=== PATIENT | male | born 1945 | race Caucasian/White ===

== ENCOUNTER 2020-02-17 13:20 | Outpatient (RCR) | payer MEDICARE, SELFPAY ==
[2020-04-25 11:58] LABS: Influenza A PCR NEGATIVE (Negative); Influenza B PCR NEGATIVE (Negative); Resp Syncy Virus RNA Qual PCR NEGATIVE (Negative); SARS COV2 PCR INHOUSE NEGATIVE (Negative)
[2020-04-27 14:52] LABS: Influenza A PCR NEGATIVE (Negative); Influenza B PCR NEGATIVE (Negative); Resp Syncy Virus RNA Qual PCR NEGATIVE (Negative); SARS COV2 PCR INHOUSE NEGATIVE (Negative)
[2020-05-03 13:40] LABS: Influenza A PCR NEGATIVE (Negative); Influenza B PCR NEGATIVE (Negative); Resp Syncy Virus RNA Qual PCR NEGATIVE (Negative); SARS COV2 PCR INHOUSE NEGATIVE (Negative)
[2020-05-21 14:24] LABS: Influenza A PCR NEGATIVE (Negative); Influenza B PCR NEGATIVE (Negative); Resp Syncy Virus RNA Qual PCR NEGATIVE (Negative); SARS COV2 PCR INHOUSE POSITIVE (Negative)
[2020-06-07 11:55] LABS: Calcium 9.3 mg/dL (8.4-10.2)
[2020-06-07 12:00] LABS: Blood Urea Nitrogen 36 mg/dL (9-16)
[2020-06-07 14:54] LABS: Anion Gap 14 (12-20); Calcium 9.3 mg/dL (8.4-10.2); Carbon Dioxide 25 mmol/L (22-29); Chloride 107 mmol/L (96-108); Estimated Glomerular Filt Rate 39; Glucose Random 102 mg/dL (60-115); Potassium 4.6 mmol/l (3.3-5.1); Sodium 141 mmol/L (135-145)
[2020-06-12 11:43] LABS: Anion Gap 11 (12-20); Blood Urea Nitrogen 39 mg/dL (9-16); Calcium 8.6 mg/dL (8.4-10.2); Carbon Dioxide 25 mmol/L (22-29); Chloride 107 mmol/L (96-108); Estimated Glomerular Filt Rate 40; Glucose Random 104 mg/dL (60-115); Potassium 4.6 mmol/l (3.3-5.1); Sodium 138 mmol/L (135-145)
--- NOTE | 2020-06-13 10:28 | P.DS_ITS ---
DS: Providers Provider Date of Service: 06/14/20 DS: Medications Discharge Medications Home Medications: Previous Rx's Medication Instructions Recorded acetaminophen 650 mg PO Q4H PRN #30 tab 06/05/20 aspirin 81 mg PO DAILY@0600 #30 tab 06/05/20 bisacodyl [Gentle Laxative 10 mg [place] DAILY PRN #30 ea 06/05/20 (bisacodyl)] dextromethorphan-guaifenesin 10 ml PO QID PRN #200 ml 06/05/20 loratadine 10 mg PO DAILY@0600 #30 tab 06/05/20 magnesium hydroxide [Milk of 30 ml PO DAILY PRN #300 ml 06/05/20 Magnesia] magnesium oxide 400 mg PO DAILY@0600 #30 tab 06/05/20 metoprolol succinate 25 mg PO DAILY@0600 #30 tab 06/05/20 metoprolol succinate 100 mg PO DAILY@0600 #30 tab 06/05/20 miconazole nitrate [Inzo 1 appl TOPICAL DAILY PRN #1 g 06/05/20 Antifungal] nystatin 1 appl TOPICAL BID PRN #30 g 06/05/20 prochlorperazine maleate 10 mg PO Q6H PRN #30 tab 06/05/20 triamcinolone acetonide 1 appl TOPICAL BID PRN #1 g 06/05/20 zinc oxide 1 appl TOPICAL DAILY PRN #30 g 06/05/20 DS: Summary Hospital Course Hospital Course: Mr. Bates is a 75 year old with mild dementia, stage 4 chronic kidney disease, anemia, B-cell lymphoma, obseity, atrial fibrillatiion, venous insufficiency, and hyponatremia. Mr. Bates was transferred to the acute care hospital after he was diagnosed with COVID. He was largely asymptomatic on diagnosis (which occurred as part of screening). His hospitalization was unremarkable with the exception of an episode of hyponatremia and acute kidney injury. The etiology of his hyponatremia was unclear. His initial urine sodium and osmolarity were low. he did respond to free water restriction so there may have been a component of polydypsia. A mild fluid restriction seems to be effective. Mr. Bates's afib is rate controlled with metoprolol and he is on aspirin but not on other anticoagulation. He has a history of a large B-cell lymphoma. His acute kidney injury was mild and the patient likely has progression of his chronic kidney disease with a Cr that ranges from 1.3-1.7. Mr. Bates is a DNR/DNI and not to be transfered to the hospital except for comfort as per his MOLST. He received two doses of the [employer] COVID-19 vaccine. Time Spent with Patient Time attestation: Total time spent providing and/or coordinating discharge services: Discharge coordination time: Less than 30 minutes DS: Data Data Completed and Pending Labs on day of discharge: Laboratory Tests 04/25/20 04/27/20 05/03/20 Unknown 12:50 12:30 Sodium Potassium Chloride Carbon Dioxide Anion Gap BUN Creatinine Estim Creat Clear Calc Estimated GFR Random Glucose Calcium Coronavirus (PCR) NEGATIVE NEGATIVE NEGATIVE Influenza Type A (PCR) NEGATIVE NEGATIVE NEGATIVE Influenza Type B (PCR) NEGATIVE NEGATIVE NEGATIVE RSV RNA Qual (PCR) NEGATIVE NEGATIVE NEGATIVE 05/21/20 06/07/20 06/07/20 Unknown 11:29 11:29 Sodium 141 Potassium 4.6 Chloride 107 Carbon Dioxide 25 Anion Gap 14 BUN 36 H Creatinine 1.72 H Estim Creat Clear Calc TNP Estimated GFR 39 Random Glucose 102 Calcium 9.3 D 9.3 Coronavirus (PCR) POSITIVE A Influenza Type A (PCR) NEGATIVE Influenza Type B (PCR) NEGATIVE RSV RNA Qual (PCR) NEGATIVE 06/12/20 11:08 Sodium 138 Potassium 4.6 Chloride 107 Carbon Dioxide 25 Anion Gap 11 L BUN 39 H Creatinine 1.67 H Estim Creat Clear Calc TNP Estimated GFR 40 Random Glucose 104 Calcium 8.6 Coronavirus (PCR) Influenza Type A (PCR) Influenza Type B (PCR) RSV RNA Qual (PCR) Discharge Plan Discharge Attending provider: Uri Jamil Medications: No Action acetaminophen 325 mg Tablet 650 mg PO Q4H PRN (Reason: Pain, Mild (Pain Scale 1-3)) Qty: 30 RF: 0 miconazole nitrate [Inzo Antifungal] 2 % Cream 1 appl topical DAILY PRN (Reason: SKIN IRRITATION) Qty: 1 RF: 0 prochlorperazine maleate 5 mg Tablet 10 mg PO Q6H PRN (Reason: Nausea And Vomiting) Qty: 30 RF: 0 metoprolol succinate 100 mg Tablet Extended Release 24 Hr 100 mg PO DAILY@0600 Qty: 30 RF: 0 dextromethorphan-guaifenesin 10-100 mg/5 mL Syrup 10 ml PO QID PRN (Reason: Cough) Qty: 200 RF: 0 magnesium oxide 400 mg (241.3 mg magnesium) Tablet 400 mg PO DAILY@0600 Qty: 30 RF: 0 magnesium hydroxide [Milk of Magnesia] 400 mg/5 mL Suspension 30 ml PO DAILY PRN (Reason: Constipation) Qty: 300 RF: 0 bisacodyl [Gentle Laxative (bisacodyl)] 10 mg Suppository 10 mg [place] DAILY PRN (Reason: Constipation) Qty: 30 RF: 0 triamcinolone acetonide 0.1 % Ointment 1 appl topical BID PRN (Reason: Itching) Qty: 1 RF: 0 aspirin 81 mg Tablet,Chewable 81 mg PO DAILY@0600 Qty: 30 RF: 0 metoprolol succinate 25 mg Tablet Extended Release 24 Hr 25 mg PO DAILY@0600 Qty: 30 RF: 0 nystatin 100,000 unit/gram Powder 1 appl topical BID PRN (Reason: Itching) Qty: 30 RF: 0 loratadine 10 mg Tablet 10 mg PO DAILY@0600 Qty: 30 RF: 0 zinc oxide 20 % Ointment 1 appl topical DAILY PRN (Reason: SKIN IRRITATION) Qty: 30 RF: 0
== END 2020-06-14 11:56 | disposition home or self-care (01) ==
LOC: HO.SHU1 13:20
PROVIDERS: Internal Medicine; Visit Provider Hospitalist
DX: Z51.89 Encounter for other specified aftercare (principal)
CPT/HCPCS: 0241U; 36415; 80048; 82310; 84520; 99217

== ENCOUNTER 2020-04-12 12:13 | Outpatient (REF) | payer MEDICARE, SELFPAY ==
[2020-04-12 12:25] LABS: MANUAL DIFF FLAG NO
[2020-04-12 12:38] LABS: Basophils Percent Auto 0.8 % (0-2); Eosinophils Absolute Auto 0.2 X10*3/uL (0.0-0.4); Eosinophils Percent Auto 4.7 % (0-4); Hematocrit 39.3 % (42-52); Hemoglobin 12.8 g/dl (14.0-18.0); Imm Gran Abs Auto 0.01 X10*3/uL (0.00-0.03); Imm Gran Pct Auto 0.2 % (0.0-0.4); Lymphocytes Absolute Auto 0.8 X10*3/uL (1.2-4.9); Lymphocytes Percent Auto 16.2 % (20-40); Mean Corpuscular HGB Conc 32.6 g/dl (31.0-36.0); Mean Corpuscular Hemoglobin 29.3 pg (27.0-33.0); Mean Corpuscular Volume 89.9 fL (80-98); Mean Platelet Volume 9.6 fL (9.4-12.4); Monocytes Absolute Auto 0.5 X10*3/uL (0.1-1.2); Monocytes Percent Auto 9.9 % (2-11); Neutrophils Absolute Auto 3.4 X10*3/uL (2.0-8.3); Neutrophils Percent Auto 68.2 % (45-73); Platelet Count 146 X10*3/uL (160-400); Red Blood Count 4.37 X10*6/uL (4.60-5.80); Red Cell Distribution Width 13.7 % (11.0-16.0); White Blood Count 4.9 X10*3/uL (4.8-10.8)
[2020-04-12 13:03] LABS: Alanine Aminotransferase 18 U/L (0-40); Albumin Level 4.2 g/dL (3.5-5.0); Alkaline Phosphatase 59 U/L (39-117); Anion Gap 10 (12-20); Aspartate Amino Transferase 27 U/L (5-37); Bilirubin Total 0.5 mg/dL (0.0-1.0); Blood Urea Nitrogen 32 mg/dL (9-16); Calcium 9.1 mg/dL (8.4-10.2); Carbon Dioxide 28 mmol/L (22-29); Chloride 104 mmol/L (96-108); Estimated Glomerular Filt Rate 37; Glucose Random 96 mg/dL (60-115); Lactate Dehydrogenase 213 U/L (118-273); Potassium 5.1 mmol/l (3.3-5.1); Sodium 137 mmol/L (135-145); Total Protein 6.4 g/dL (6.5-8.0)
[2020-04-12 14:43] LABS: Erythrocyte Sedimentation Rate 8 MM/HR (0-15)
== END 2020-04-12 12:14 | disposition home or self-care (01) ==
LOC: HO.HSHHMC 12:13
PROVIDERS: Visit Provider Internal Medicine Hematology & Oncology
DX: C83.30 Diffuse large B-cell lymphoma, unspecified site (principal); N18.9 Chronic kidney disease, unspecified; D63.1 Anemia in chronic kidney disease
CPT/HCPCS: 36415; 80053; 83615; 85025; 85652

== ENCOUNTER 2020-05-21 16:43 | Observation (INO) | payer MEDICARE, MEDICAID, SELFPAY ==
--- NOTE | 2020-05-21 17:40 | PM.IMHP ---
History of Present Illness Date of Service: 05/21/20 Chief Complaint: Positive covid test 75 year old male from the [facility] at [facility] with past history as listed below who tested positive for covid today and routine testing. He has no symptoms of covid such as fever, sob or cough. He was moved to the isolation unit out of abundance of caution. Review of Systems Review of Systems: Gen: no fever Resp: no sob, no cough CV: no chest, no PARADA, GI: No n/v, no abd pain Neuro: No confusion Yes all other systems are reviewed and are negative [facility] Medical History (Updated 05/21/20 @ 17:46 by Hossein Garcia MD) Anemia, unspecified B-cell lymphoma Chronic a-fib Dermatitis Edema Hammer toes of both feet Hearing loss Impaired fasting glucose Mild cognitive impairment Morbid obesity Nail dystrophy Osteoarthritis Pain in right shoulder Stage 3 chronic kidney disease Unspecified atherosclerosis of [place] arteries of extremities, bilateral legs Functional capacity: independent ambulation Family history: reviewed and not pertinent Social History (Updated 05/21/20 @ 18:10 by Hossein Garcia MD) Alcohol intake: never Smoking Status: Unknown if ever smoked Currently Displaying Signs/Symptoms of Drug Intoxication Withdrawal: No Advance Directives: No Advance Directives Information Provided: Yes Do you have thoughts of harming others: None Meds Allergies Allergy/AdvReac Type Severity Reaction Status Date / Time cephalexin [From KEFLEX] Allergy Unknown UNKNOWN Unverified 02/10/20 16:06 meropenem [MEROPENEM] Allergy Unknown UNKNOWN Unverified 02/10/20 16:06 Penicillins [PENICILLINS] Allergy Unknown UNKNOWN Unverified 02/10/20 16:06 sulfamethoxazole Allergy Unknown UNKNOWN Unverified 02/10/20 16:06 [From BACTRIM] trimethoprim [From BACTRIM] Allergy Unknown UNKNOWN Unverified 02/10/20 16:06 Physical Exam Vital Signs and Narrative: Vital Signs: Vitals Pending Constitutional Awake and Alert, No apparent distress, hard of hearing so you have to scream Neck Supple, No lymphadenopathy Cardiovascular RRR, No M/R/G, S1 S2, No S3 S4, No pedal edema Respiratory normal respiratory effort Gastrointestinal Non tender, Non-distended Skin No rash Neurological Alert & oriented x3 Psychological Appropriate affect Results Labs CBC and Chem 7: 05/21/20 18:27 05/21/20 18:27 Assessment and Plan (1) Morbid obesity: Status: Acute (2) Chronic a-fib: Status: Acute 75 year male from the [place] who has tested positive for covid 19 on routine testing and is presently assymptomatic Givent that the patient is completly assymptomatic, he needs to be closely monitored for symptoms such cough, sob , decrease in oxygen saturation or fever. If hypoxia develops he will need to be given oxygen, Dexamethasone and further evaluated for qualification for other treament such plasma or Remdesevir. Will continue all usual medication as previously (Pharmacy has transitioned all meds to inpatient) now. AFIB rate is controlled on Toprol and not on anticoagulation
[2020-05-21 19:01] LABS: Hemoglobin 12.1 g/dl (14.0-18.0); Mean Corpuscular Volume 85.2 fL (80-98); Mean Platelet Volume 9.2 fL (9.4-12.4); PLT CLUMP 1
[2020-05-21 19:03] LABS: Mean Corpuscular HGB Conc 34.6 g/dl (31.0-36.0); Mean Corpuscular Hemoglobin 29.4 pg (27.0-33.0); Platelet Count 156 X10*3/uL (160-400); Red Blood Count 4.11 X10*6/uL (4.60-5.80); Red Cell Distribution Width 13.1 % (11.0-16.0); White Blood Count 4.5 X10*3/uL (4.8-10.8)
[2020-05-21 19:29] LABS: Anion Gap 15 (12-20); Blood Urea Nitrogen 34 mg/dL (9-16); C Reactive Protein 2.83 mg/dL (< or = 0.50); Calcium 8.2 mg/dL (8.4-10.2); Carbon Dioxide 21 mmol/L (22-29); Chloride 101 mmol/L (96-108); Estimated Glomerular Filt Rate 38; Glucose Random 131 mg/dL (60-115); Lactate Dehydrogenase 197 U/L (118-273); Potassium 4.5 mmol/l (3.3-5.1); Sodium 132 mmol/L (135-145)
--- NOTE | 2020-05-21 19:34 | PC.NURSE ---
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
[2020-05-21 20:00] VITALS: BP 166/87; PULSE 70; RESP 18; TEMP 36.9
[2020-05-22] VITALS (8 sets, daily range): BP systolic 140–157; BP diastolic 73–88; PULSE 52–65; RESP 18–20; TEMP 36.3–36.8; O2SAT 96–99; BMI 33.3
[2020-05-22] MEDS: Magnesium Oxide 400 MG TABLET PO (06:10)
[2020-05-22] MEDS: Metoprolol Succinate ER 100 MG TAB.ER.24H PO (06:10)
[2020-05-22] MEDS: Metoprolol Succinate ER 25 MG TAB.ER.24H PO (06:10)
[2020-05-22] MEDS: Loratadine 10 MG TABLET PO (06:11)
[2020-05-22] MEDS: Aspirin 81 MG TAB.CHEW PO (06:11)
--- NOTE | 2020-05-22 08:55 | P.PNIM_ITS ---
Subjective Subjective Date of Service: 05/22/20 Interval History: Seen in f/u for assymptomatic covid. Remain symptom freee. No fever and sob Review of Systems Gen: no fever Resp: no sob, no cough CV: no chest, no PARADA, GI: No n/v, no abd pain Neuro: No confusion Physical Exam Vital Signs: Vital Signs: Last Vital Signs Temp 98.2 F 05/22/20 08:00 Pulse 61 05/22/20 08:00 Resp 19 05/22/20 08:00 BP 145/73 H 05/22/20 08:00 Pulse Ox 96 05/22/20 08:00 General: AO X 3, no acute distress, hard of hearing Resp: normal resp effort CVS: S1,S2,RRR GI: +BS, NT, no distention Skin: No rash Neuro: motor grossly intact Psych: appropriate affect Objective Data Current Medications Generic Name Dose Route Start Last Admin Trade Name Freq PRN Reason Stop Dose Admin Acetaminophen 650 mg 05/21/20 18:00 Acetaminophen 325 Mg Tablet PO Q4H PRN Pain, Mild (Pain Scale 1-3) Aspirin 81 mg 05/21/20 18:00 05/22/20 06:11 Aspirin 81 Mg Tab.Chew PO 81 mg DAILY@0600 [facility] Administration Bisacodyl 10 mg 05/21/20 18:00 Bisacodyl 10 Mg Supp.Rect [place] DAILY PRN Constipation Guaifenesin/Dextromethorphan 10 ml 05/21/20 18:00 Guaifenesin Dm 100/10/5 Ml 5 Ml Syrup PO QID PRN Cough Heparin Sodium (Porcine) 5,000 unit 05/21/20 17:46 05/22/20 06:11 Heparin Sodium,Porcine 5,000 Unit/Ml Vial SUBCUT Not Given Q12H [facility] Loratadine 10 mg 05/21/20 18:00 05/22/20 06:11 Loratadine 10 Mg Tablet PO 10 mg DAILY@0600 [facility] Administration Magnesium Hydroxide 30 ml 05/21/20 18:00 Milk Of Magnesia 30 Ml Oral.Susp PO DAILY PRN Constipation Magnesium Oxide 400 mg 05/21/20 18:00 05/22/20 06:10 Magnesium Oxide 400 Mg Tablet PO 400 mg DAILY@0600 [facility] Administration Metoprolol Succinate 100 mg 05/21/20 18:00 05/22/20 06:10 Metoprolol Succinate Er 100 Mg Tab.Er.24h PO 100 mg DAILY@0600 [facility] Administration Metoprolol Succinate 25 mg 05/21/20 18:00 05/22/20 06:10 Metoprolol Succinate Er 25 Mg Tab.Er.24h PO 25 mg DAILY@0600 [facility] Administration Miconazole Nitrate 1 appl 05/21/20 18:00 Miconazole 2 % Extra Thick Cr 56.7 Gm Tube TOPICAL DAILY PRN SKIN IRRITATION Protocol Nf Med Aloe Vera 10, 10,000 each 05/21/20 18:00 05/22/20 06:12 000 Mg/Capsule PO 10,000 each DAILY@0600 [facility] Administration Patient Own 1 each 05/21/20 18:00 05/22/20 06:13 Medication (Coq10 PO 1 each 200 Mg) DAILY@0600 [facility] Administration Pt Own Ascorbic Acid 250 each 05/21/20 18:00 05/22/20 06:14 125 Mg Gummy PO 250 each DAILY@0600 [facility] Administration Nf Med Vitamin E 180 1 each 05/21/20 18:00 05/22/20 06:13 Mg PO 1 each DAILY@0600 [facility] Administration Pt Own Fish Oil 1000 1 each 05/21/20 18:00 05/22/20 06:14 Mg PO 1 each DAILY@0600 [facility] Administration Nystatin 1 appl 05/21/20 18:00 Nystatin Powder 15 Gm Bottle TOPICAL BID PRN Itching Protocol Prochlorperazine Maleate 10 mg 05/21/20 18:00 Prochlorperazine Maleate 5 Mg Tablet PO Q6H PRN Nausea and Vomiting Sodium Chloride 3 ml 05/22/20 00:00 05/22/20 01:18 0.9 % Sodium Chloride Flush 3 Ml Syringe IVFLUSH Not Given QSHIFT [facility] Triamcinolone Acetonide 1 appl 05/21/20 18:00 Triamcinolone Acet 0.1 % Oint 15 Gm Tube TOPICAL BID PRN Itching Protocol Vitamin B Complex/Folic Acid 1 cap 05/21/20 18:00 05/22/20 06:11 B Complex W-C No.20/Folic Acid Capsule PO 1 cap DAILY@0600 [facility] Administration Zinc Oxide 1 appl 05/21/20 18:00 Zinc Oxide 20% Ointment 28.35 Gm Tube TOPICAL DAILY PRN SKIN IRRITATION Protocol Labs CBC & Chem 7: 05/21/20 18:27 05/21/20 18:27 Assessment and Plan (1) Morbid obesity: Status: Acute (2) Chronic a-fib: Status: Acute Assessment and Plan: 75 year male from the [place] who has tested positive for covid 19 on routine testing and is presently assymptomatic Covid-19 virsus. Givent that the patient is completly assymptomatic, he needs to be closely monitored for symptoms such cough, sob , decrease in oxygen saturation or fever. If hypoxia develops he will need to be given oxygen, Dexamethasone and further evaluated for qualification for other treament such plasma or Remdesevir. AFIB --controlled. Not on anticoagulation CKD3--stable. Morbid obesity--advise weight lossas may can worse undlying chronic illnesses Heparin for DVT prophylaxis
--- NOTE | 2020-05-22 12:23 | MHC.CM.PN ---
patient is a [facility] resident being housed on s3[facility]. pt will return to 3[facility] when medically cleared. family is aware patient is on isolation unit. cm to cont. to follow.
[2020-05-22 13:16] LABS: COVID-19 Test Positive (Negative)
[2020-05-22] MEDS: 0.9 % Sodium Chloride Flush 3 ML SYRINGE IVFLUSH ×2 (15:21→23:34)
[2020-05-22 15:29] LABS: SARS COV2 IgG Positive (Negative)
[2020-05-23] VITALS (8 sets, daily range): BP systolic 111–147; BP diastolic 61–84; PULSE 60–65; RESP 18; TEMP 36.6–37.1; O2SAT 95–99; BMI 33.3
[2020-05-23] MEDS: Aspirin 81 MG TAB.CHEW PO (05:26)
[2020-05-23] MEDS: Magnesium Oxide 400 MG TABLET PO (05:26)
[2020-05-23] MEDS: Loratadine 10 MG TABLET PO (05:26)
[2020-05-23] MEDS: Metoprolol Succinate ER 100 MG TAB.ER.24H PO (05:31)
[2020-05-23] MEDS: Metoprolol Succinate ER 25 MG TAB.ER.24H PO (05:38)
[2020-05-23] MEDS: 0.9 % Sodium Chloride Flush 3 ML SYRINGE IVFLUSH ×3 (08:16→23:30)
--- NOTE | 2020-05-23 12:03 | P.PNIM_ITS ---
Subjective Subjective Date of Service: 05/23/20 Interval History: the patient was seen this morning Laying in bed, feels comfortable No reported fever, chills or shortness of breath No reported other overnight events. Systemic review: No fever, chills or weakness No chest pain, palpitation No shortness of breath or coughing No abdominal pain, nausea or vomiting No urinary symptoms No any rash or wounds Physical Exam Vital Signs: Vital Signs: Last Vital Signs Temp 97.8 F 05/23/20 08:00 Pulse 62 05/23/20 08:00 Resp 18 05/23/20 08:00 BP 111/61 05/23/20 08:00 Pulse Ox 95 05/23/20 08:00 Body Mass Index 33.3 Constitutional : Alert, not in distress Neck : Normal inspection, Supple Cardiovascular : RRR, S1 S2, no lower extremity edema Respiratory : Need not aspirated distress, no wheezing, chest wall moving bilaterally Gastrointestinal: soft, lax, Normal bowel sounds, Non tender Skin : Warm/Dry, No rash Neurological : Alert , No focal deficit Objective Data Current Medications Generic Name Dose Route Start Last Admin Trade Name Freq PRN Reason Stop Dose Admin Acetaminophen 650 mg 05/21/20 18:00 Acetaminophen 325 Mg Tablet PO Q4H PRN Pain, Mild (Pain Scale 1-3) Aspirin 81 mg 05/21/20 18:00 05/23/20 05:26 Aspirin 81 Mg Tab.Chew PO 81 mg DAILY@0600 [facility] Administration Bisacodyl 10 mg 05/21/20 18:00 Bisacodyl 10 Mg Supp.Rect [place] DAILY PRN Constipation Guaifenesin/Dextromethorphan 10 ml 05/21/20 18:00 Guaifenesin Dm 100/10/5 Ml 5 Ml Syrup PO QID PRN Cough Heparin Sodium (Porcine) 5,000 unit 05/21/20 17:46 05/23/20 08:16 Heparin Sodium,Porcine 5,000 Unit/Ml Vial SUBCUT Not Given Q12H [facility] Loratadine 10 mg 05/21/20 18:00 05/23/20 05:26 Loratadine 10 Mg Tablet PO 10 mg DAILY@0600 [facility] Administration Magnesium Hydroxide 30 ml 05/21/20 18:00 Milk Of Magnesia 30 Ml Oral.Susp PO DAILY PRN Constipation Magnesium Oxide 400 mg 05/21/20 18:00 05/23/20 05:26 Magnesium Oxide 400 Mg Tablet PO 400 mg DAILY@0600 [facility] Administration Metoprolol Succinate 100 mg 05/21/20 18:00 05/23/20 05:31 Metoprolol Succinate Er 100 Mg Tab.Er.24h PO 100 mg DAILY@0600 [facility] Administration Metoprolol Succinate 25 mg 05/21/20 18:00 05/23/20 05:38 Metoprolol Succinate Er 25 Mg Tab.Er.24h PO 25 mg DAILY@0600 [facility] Administration Miconazole Nitrate 1 appl 05/21/20 18:00 Miconazole 2 % Extra Thick Cr 56.7 Gm Tube TOPICAL DAILY PRN SKIN IRRITATION Protocol Nf Med Aloe Vera 10, 10,000 each 05/21/20 18:00 05/23/20 05:29 000 Mg/Capsule PO 10,000 each DAILY@0600 [facility] Administration Patient Own 1 each 05/21/20 18:00 05/23/20 05:30 Medication (Coq10 PO 1 each 200 Mg) DAILY@0600 [facility] Administration Pt Own Ascorbic Acid 250 each 05/21/20 18:00 05/23/20 05:30 125 Mg Gummy PO 250 each DAILY@0600 [facility] Administration Nf Med Vitamin E 180 1 each 05/21/20 18:00 05/23/20 05:29 Mg PO 1 each DAILY@0600 [facility] Administration Pt Own Fish Oil 1000 1 each 05/21/20 18:00 05/23/20 05:30 Mg PO 1 each DAILY@0600 [facility] Administration Nystatin 1 appl 05/21/20 18:00 Nystatin Powder 15 Gm Bottle TOPICAL BID PRN Itching Protocol Prochlorperazine Maleate 10 mg 05/21/20 18:00 Prochlorperazine Maleate 5 Mg Tablet PO Q6H PRN Nausea and Vomiting Sodium Chloride 3 ml 05/22/20 00:00 05/23/20 08:16 0.9 % Sodium Chloride Flush 3 Ml Syringe IVFLUSH 3 ml QSHIFT [facility] Administration Triamcinolone Acetonide 1 appl 05/21/20 18:00 Triamcinolone Acet 0.1 % Oint 15 Gm Tube TOPICAL BID PRN Itching Protocol Vitamin B Complex/Folic Acid 1 cap 05/21/20 18:00 05/23/20 05:26 B Complex W-C No.20/Folic Acid Capsule PO 1 cap DAILY@0600 [facility] Administration Zinc Oxide 1 appl 05/21/20 18:00 Zinc Oxide 20% Ointment 28.35 Gm Tube TOPICAL DAILY PRN SKIN IRRITATION Protocol Labs CBC & Chem 7: 05/21/20 18:27 05/21/20 18:27 Assessment and Plan (1) Morbid obesity: Status: Acute (2) Chronic a-fib: Status: Acute Assessment and Plan: 75 year male from the [place] who has tested positive for covid 19 on routine testing and is presently assymptomatic Covid-19 infection Asymptomatic Monitor for oxygen need Does not qualify for steroids or remdesivir Hyponatremia Sodium 132 Advised to eat better Continue to monitor AFIB controlled Not on anticoagulation CKD3 stable. Morbid obesity You can worsen underlying chronic illnesses, advised to lose weight DVT prophylaxis Heparin
[2020-05-24] MEDS: Acetaminophen 325 MG TABLET 650 MG PO (02:01)
[2020-05-24 03:17] VITALS: BP 119/66; PULSE 53; RESP 18; TEMP 36.6; O2SAT 99
[2020-05-24 06:24] VITALS: BP 124/54; PULSE 60
[2020-05-24] MEDS: Metoprolol Succinate ER 25 MG TAB.ER.24H PO (06:24)
[2020-05-24 06:25] VITALS: BP 124/54; PULSE 60
[2020-05-24] MEDS: Metoprolol Succinate ER 100 MG TAB.ER.24H PO (06:25)
[2020-05-24] MEDS: Loratadine 10 MG TABLET PO (06:25)
[2020-05-24] MEDS: Aspirin 81 MG TAB.CHEW PO (06:25)
[2020-05-24] MEDS: Magnesium Oxide 400 MG TABLET PO (06:25)
[2020-05-24 07:50] LABS: Hematocrit 31.5 % (42-52); Hemoglobin 11.2 g/dl (14.0-18.0); Mean Corpuscular HGB Conc 35.6 g/dl (31.0-36.0); Mean Corpuscular Hemoglobin 29.3 pg (27.0-33.0); Mean Corpuscular Volume 82.5 fL (80-98); Mean Platelet Volume 9.1 fL (9.4-12.4); Platelet Count 139 X10*3/uL (160-400); Red Blood Count 3.82 X10*6/uL (4.60-5.80); Red Cell Distribution Width 12.6 % (11.0-16.0); White Blood Count 4.4 X10*3/uL (4.8-10.8)
[2020-05-24] MEDS: 0.9 % Sodium Chloride Flush 3 ML SYRINGE IVFLUSH ×2 (07:55→17:29)
[2020-05-24 08:00] VITALS: BP 149/74; PULSE 57; RESP 18; TEMP 36.4; O2SAT 98
[2020-05-24 08:22] LABS: Anion Gap 12 (12-20); Blood Urea Nitrogen 23 mg/dL (9-16); Calcium 7.9 mg/dL (8.4-10.2); Carbon Dioxide 19 mmol/L (22-29); Chloride 100 mmol/L (96-108); Estimated Glomerular Filt Rate 54; Glucose Random 96 mg/dL (60-115); Potassium 3.8 mmol/l (3.3-5.1); Sodium 127 mmol/L (135-145)
[2020-05-24 12:00] VITALS: BP 146/75; PULSE 62; RESP 18; TEMP 36.5
--- NOTE | 2020-05-24 12:18 | HO.PM.IMPN ---
Subjective Subjective Date of Service: 05/24/20 Interval History: the patient was seen this morning Laying in bed, feels comfortable No reported fever, chills or shortness of breath No reported other overnight events. Systemic review: No fever, chills or weakness No chest pain, palpitation No shortness of breath or coughing No abdominal pain, nausea or vomiting No urinary symptoms No any rash or wounds Physical Exam Vital Signs: Vital Signs: Last Vital Signs Temp 97.6 F 05/24/20 08:00 Pulse 57 05/24/20 08:00 Resp 18 05/24/20 08:00 BP 149/74 H 05/24/20 08:00 Pulse Ox 98 05/24/20 08:00 Body Mass Index 33.3 Constitutional : Alert, not in distress Neck : Normal inspection, Supple Cardiovascular : RRR, S1 S2, no lower extremity edema Respiratory : Need not aspirated distress, no wheezing, chest wall moving bilaterally Gastrointestinal: soft, lax, Normal bowel sounds, Non tender Skin : Warm/Dry, No rash Neurological : Alert , No focal deficit Objective Data Current Medications Generic Name Dose Route Start Last Admin Trade Name Freq PRN Reason Stop Dose Admin Acetaminophen 650 mg 05/21/20 18:00 05/24/20 02:01 Acetaminophen 325 Mg Tablet PO 650 mg Q4H PRN Administration Pain, Mild (Pain Scale 1-3) Aspirin 81 mg 05/21/20 18:00 05/24/20 06:25 Aspirin 81 Mg Tab.Chew PO 81 mg DAILY@0600 [facility] Administration Bisacodyl 10 mg 05/21/20 18:00 Bisacodyl 10 Mg Supp.Rect [place] DAILY PRN Constipation Guaifenesin/Dextromethorphan 10 ml 05/21/20 18:00 Guaifenesin Dm 100/10/5 Ml 5 Ml Syrup PO QID PRN Cough Heparin Sodium (Porcine) 5,000 unit 05/21/20 17:46 05/24/20 06:53 Heparin Sodium,Porcine 5,000 Unit/Ml Vial SUBCUT Not Given Q12H [facility] Loratadine 10 mg 05/21/20 18:00 05/24/20 06:25 Loratadine 10 Mg Tablet PO 10 mg DAILY@0600 [facility] Administration Magnesium Hydroxide 30 ml 05/21/20 18:00 Milk Of Magnesia 30 Ml Oral.Susp PO DAILY PRN Constipation Magnesium Oxide 400 mg 05/21/20 18:00 05/24/20 06:25 Magnesium Oxide 400 Mg Tablet PO 400 mg DAILY@0600 [facility] Administration Metoprolol Succinate 100 mg 05/21/20 18:00 05/24/20 06:25 Metoprolol Succinate Er 100 Mg Tab.Er.24h PO 100 mg DAILY@0600 [facility] Administration Metoprolol Succinate 25 mg 05/21/20 18:00 05/24/20 06:24 Metoprolol Succinate Er 25 Mg Tab.Er.24h PO 25 mg DAILY@0600 [facility] Administration Miconazole Nitrate 1 appl 05/21/20 18:00 Miconazole 2 % Extra Thick Cr 56.7 Gm Tube TOPICAL DAILY PRN SKIN IRRITATION Protocol Nf Med Aloe Vera 10, 10,000 each 05/21/20 18:00 05/24/20 06:41 000 Mg/Capsule PO 10,000 each DAILY@0600 [facility] Administration Patient Own 1 each 05/21/20 18:00 05/24/20 06:40 Medication (Coq10 PO 1 each 200 Mg) DAILY@0600 [facility] Administration Pt Own Ascorbic Acid 250 each 05/21/20 18:00 05/24/20 06:40 125 Mg Gummy PO 250 each DAILY@0600 [facility] Administration Nf Med Vitamin E 180 1 each 05/21/20 18:00 05/24/20 06:40 Mg PO 1 each DAILY@0600 [facility] Administration Pt Own Fish Oil 1000 1 each 05/21/20 18:00 05/24/20 06:40 Mg PO 1 each DAILY@0600 [facility] Administration Nystatin 1 appl 05/21/20 18:00 Nystatin Powder 15 Gm Bottle TOPICAL BID PRN Itching Protocol Prochlorperazine Maleate 10 mg 05/21/20 18:00 Prochlorperazine Maleate 5 Mg Tablet PO Q6H PRN Nausea and Vomiting Sodium Chloride 3 ml 05/22/20 00:00 05/24/20 07:55 0.9 % Sodium Chloride Flush 3 Ml Syringe IVFLUSH 3 ml QSHIFT [facility] Administration Triamcinolone Acetonide 1 appl 05/21/20 18:00 Triamcinolone Acet 0.1 % Oint 15 Gm Tube TOPICAL BID PRN Itching Protocol Vitamin B Complex/Folic Acid 1 cap 05/21/20 18:00 05/24/20 06:25 B Complex W-C No.20/Folic Acid Capsule PO 1 cap DAILY@0600 [facility] Administration Zinc Oxide 1 appl 05/21/20 18:00 Zinc Oxide 20% Ointment 28.35 Gm Tube TOPICAL DAILY PRN SKIN IRRITATION Protocol Labs CBC & Chem 7: 05/24/20 07:14 05/24/20 07:14 Assessment and Plan (1) Morbid obesity: Status: Acute (2) Chronic a-fib: Status: Acute Assessment and Plan: 75 year male from the [place] who has tested positive for covid 19 on routine testing and is presently assymptomatic Covid-19 infection Asymptomatic Monitor for oxygen need Does not qualify for steroids or remdesivir Hyponatremia Mild NAG metabolic acidosis Bicareb of 19 Sodium worsened to 127 Likely 2/2 decrease PO intake Advised to eat better To give sodium bicarb po tabs Continue to monitor BMP AFIB controlled Not on anticoagulation CKD3 stable. Morbid obesity can worsen underlying chronic illnesses, advised to lose weight DVT prophylaxis Heparin
[2020-05-24] MEDS: Sodium Bicarbonate 650 MG TABLET 1300 MG PO ×2 (13:01→20:38)
--- NOTE | 2020-05-24 14:47 | MHC.CM.PN ---
The patient was erroneously admitted to inpatient status, but then underwent the code 44 process and underwent a period of observation exceeding 8 hours. The patient is now medically stable for discharge and awaiting placement which has been complicated by their COVID status and are currently outpatients in a bed.
[2020-05-24 20:00] VITALS: BP 143/77; PULSE 63; RESP 18; TEMP 35.8; O2SAT 98
[2020-05-25] VITALS: BP 146/75; PULSE 68; RESP 18; TEMP 36.8; O2SAT 94
[2020-05-25] MEDS: 0.9 % Sodium Chloride Flush 3 ML SYRINGE IVFLUSH ×4 (01:34→21:09)
[2020-05-25 04:00] VITALS: BP 135/62; PULSE 60; RESP 18; TEMP 35.8; O2SAT 98
[2020-05-25] MEDS: Magnesium Oxide 400 MG TABLET PO (05:52)
[2020-05-25] MEDS: Metoprolol Succinate ER 100 MG TAB.ER.24H PO (05:52)
[2020-05-25] MEDS: Loratadine 10 MG TABLET PO (05:52)
[2020-05-25] MEDS: Metoprolol Succinate ER 25 MG TAB.ER.24H PO (05:52)
[2020-05-25] MEDS: Heparin Sodium,Porcine 5,000 UNIT/ML VIAL 5000 UNIT SUBCUT (05:52)
[2020-05-25] MEDS: Aspirin 81 MG TAB.CHEW PO (05:52)
[2020-05-25 07:01] LABS: Anion Gap 12 (12-20); Blood Urea Nitrogen 23 mg/dL (9-16); Calcium 8.1 mg/dL (8.4-10.2); Carbon Dioxide 20 mmol/L (22-29); Chloride 98 mmol/L (96-108); Estimated Glomerular Filt Rate 54; Glucose Random 100 mg/dL (60-115); Potassium 4.3 mmol/l (3.3-5.1); Sodium 126 mmol/L (135-145)
[2020-05-25 07:53] VITALS: BP 115/49; PULSE 53; RESP 19; TEMP 36.7; O2SAT 97
[2020-05-25] MEDS: Sodium Bicarbonate 650 MG TABLET 1300 MG PO ×2 (08:06→21:09)
[2020-05-25 08:12] LABS: Osmolality, Serum 267 mosm/kg (281-305)
--- NOTE | 2020-05-25 11:19 | HO.PM.IMPN ---
Subjective Subjective Date of Service: 05/25/20 Interval History: seen and examined no complaints no issues reported per staffing manager ROS General - no fevers or chills Cardiovascular - no chest pain Respiratory - no shortness of breath or cough Abdominal- no abdominal pain, nausea, vomiting, diarrhea Physical Exam Vital Signs: Vital Signs: Last Vital Signs Temp 98.1 F 05/25/20 07:53 Pulse 53 05/25/20 07:53 Resp 19 05/25/20 07:53 BP 115/49 L 05/25/20 07:53 Pulse Ox 97 05/25/20 07:53 Body Mass Index 33.3 Const: Other: General - no acute distress, appears comfortable Cardiovascular - regular rate and rhythm, S1-S2 Lungs - normal respiratory effort, clear to auscultation bilaterally, no wheezing Abdomen - soft, nontender, no rebound or guarding Extremities - no edema bilaterally Neuro - awake and alert, no focal deficits Objective Data Current Medications Generic Name Dose Route Start Last Admin Trade Name Freq PRN Reason Stop Dose Admin Acetaminophen 650 mg 05/21/20 18:00 05/24/20 02:01 Acetaminophen 325 Mg Tablet PO 650 mg Q4H PRN Administration Pain, Mild (Pain Scale 1-3) Aspirin 81 mg 05/21/20 18:00 05/25/20 05:52 Aspirin 81 Mg Tab.Chew PO 81 mg DAILY@0600 [facility] Administration Bisacodyl 10 mg 05/21/20 18:00 Bisacodyl 10 Mg Supp.Rect [place] DAILY PRN Constipation Guaifenesin/Dextromethorphan 10 ml 05/21/20 18:00 Guaifenesin Dm 100/10/5 Ml 5 Ml Syrup PO QID PRN Cough Heparin Sodium (Porcine) 5,000 unit 05/21/20 17:46 05/25/20 05:52 Heparin Sodium,Porcine 5,000 Unit/Ml Vial SUBCUT 5,000 unit Q12H [facility] Administration Loratadine 10 mg 05/21/20 18:00 05/25/20 05:52 Loratadine 10 Mg Tablet PO 10 mg DAILY@0600 [facility] Administration Magnesium Hydroxide 30 ml 05/21/20 18:00 Milk Of Magnesia 30 Ml Oral.Susp PO DAILY PRN Constipation Magnesium Oxide 400 mg 05/21/20 18:00 05/25/20 05:52 Magnesium Oxide 400 Mg Tablet PO 400 mg DAILY@0600 [facility] Administration Metoprolol Succinate 100 mg 05/21/20 18:00 05/25/20 05:52 Metoprolol Succinate Er 100 Mg Tab.Er.24h PO 100 mg DAILY@0600 [facility] Administration Metoprolol Succinate 25 mg 05/21/20 18:00 05/25/20 05:52 Metoprolol Succinate Er 25 Mg Tab.Er.24h PO 25 mg DAILY@0600 [facility] Administration Miconazole Nitrate 1 appl 05/21/20 18:00 Miconazole 2 % Extra Thick Cr 56.7 Gm Tube TOPICAL DAILY PRN SKIN IRRITATION Protocol Nf Med Aloe Vera 10, 10,000 each 05/21/20 18:00 05/25/20 06:00 000 Mg/Capsule PO 10,000 each DAILY@0600 [facility] Administration Patient Own 1 each 05/21/20 18:00 05/25/20 06:00 Medication (Coq10 PO 1 each 200 Mg) DAILY@0600 [facility] Administration Pt Own Ascorbic Acid 250 each 05/21/20 18:00 05/25/20 06:00 125 Mg Gummy PO 250 each DAILY@0600 [facility] Administration Nf Med Vitamin E 180 1 each 05/21/20 18:00 05/25/20 06:00 Mg PO 1 each DAILY@0600 [facility] Administration Pt Own Fish Oil 1000 1 each 05/21/20 18:00 05/25/20 06:00 Mg PO 1 each DAILY@0600 [facility] Administration Nystatin 1 appl 05/21/20 18:00 Nystatin Powder 15 Gm Bottle TOPICAL BID PRN Itching Protocol Prochlorperazine Maleate 10 mg 05/21/20 18:00 Prochlorperazine Maleate 5 Mg Tablet PO Q6H PRN Nausea and Vomiting Sodium Bicarbonate 1,300 mg 05/24/20 12:25 05/25/20 08:06 Sodium Bicarbonate 650 Mg Tablet PO 05/25/20 21:01 1,300 mg BID [facility] Administration Sodium Chloride 3 ml 05/22/20 00:00 05/25/20 08:06 0.9 % Sodium Chloride Flush 3 Ml Syringe IVFLUSH 3 ml QSHIFT [facility] Administration Triamcinolone Acetonide 1 appl 05/21/20 18:00 Triamcinolone Acet 0.1 % Oint 15 Gm Tube TOPICAL BID PRN Itching Protocol Vitamin B Complex/Folic Acid 1 cap 05/21/20 18:00 05/25/20 05:52 B Complex W-C No.20/Folic Acid Capsule PO 1 cap DAILY@0600 [facility] Administration Zinc Oxide 1 appl 05/21/20 18:00 Zinc Oxide 20% Ointment 28.35 Gm Tube TOPICAL DAILY PRN SKIN IRRITATION Protocol Labs CBC & Chem 7: 05/24/20 07:14 05/25/20 06:15 Assessment and Plan (1) Chronic a-fib: Status: Acute Assessment and Plan: 75 year male from the [place] who has tested positive for covid 19 on routine testing and is presently assymptomatic 1. Covid-19 Asymptomatic no hypoxia, no respiratory symptoms no benefit of remdesivir / decadron at this time check labs / imaging if patient shows symptoms, otherwise monitor now 2. Hyponatremia suspect hypovolemic check urine studies 3. AFIB controlled Not on anticoagulation, unclear why 4. CKD3 stable. 5. Morbid obesity weight loss DVT prophylaxis Heparin
[2020-05-25 11:44] VITALS: BP 125/61; PULSE 59; RESP 19; TEMP 36.7; O2SAT 99
[2020-05-25 12:58] LABS: Sodium Urine Random < 20.0 mmol/L
[2020-05-25 13:14] LABS: Osmolality Urine 162 mosm/kg (373-1093)
[2020-05-25] MEDS: Milk of Magnesia 30 ML ORAL.SUSP PO (15:11)
[2020-05-25 15:12] VITALS: BP 144/72; PULSE 90; RESP 18; TEMP 36.7; O2SAT 95
--- NOTE | 2020-05-25 17:36 | PC.NURSE ---
Pt able to make needs known, walking in room by himself. Pt c/o no bm for a couple days, given MOM with good effect. Requesting chapstick from room upstairs\, will attempt to get. Pt refusing heparin shot, educated on importance of it, states he is walking in the room more than he was up stairs. Pt had no other complaints throughout shift.
[2020-05-25 20:00] VITALS: BP 147/71; PULSE 70; RESP 18; TEMP 36.3; O2SAT 98
[2020-05-26] VITALS (7 sets, daily range): BP systolic 115–173; BP diastolic 51–90; PULSE 51–74; RESP 12–20; TEMP 36.4–37; O2SAT 94–99
--- NOTE | 2020-05-26 | XR_ITS ---
EXAMINATION: XR CHEST CLINICAL INFORMATION: COVID. COMPARISON: None TECHNIQUE: Frontal view of the chest was obtained. FINDINGS: Mild prominent bronchovascular markings are present likely represent chronic changes. No definite evidence of any alveolar interstitial pneumonia. Heart size is within normal limits. No pleural effusion or pneumothorax. Moderate diffuse osteopenia is seen. Degenerative osteoarthrosis is noted within the included visualized both shoulders. XR/XR chest 1V IMPRESSION: No definite radiographic evidence of pneumonia. Mild prominent bronchovascular markings, likely chronic changes.
[2020-05-26] MEDS: Loratadine 10 MG TABLET PO (06:10)
[2020-05-26] MEDS: Metoprolol Succinate ER 25 MG TAB.ER.24H PO (06:10)
[2020-05-26] MEDS: Metoprolol Succinate ER 100 MG TAB.ER.24H PO (06:10)
[2020-05-26] MEDS: Magnesium Oxide 400 MG TABLET PO (06:10)
[2020-05-26] MEDS: Aspirin 81 MG TAB.CHEW PO (06:10)
[2020-05-26] MEDS: 0.9 % Sodium Chloride Flush 3 ML SYRINGE IVFLUSH (07:45)
[2020-05-26 09:20] LABS: Hematocrit 34.9 % (42-52); Hemoglobin 12.4 g/dl (14.0-18.0); Mean Corpuscular HGB Conc 35.5 g/dl (31.0-36.0); Mean Corpuscular Hemoglobin 29.7 pg (27.0-33.0); Mean Corpuscular Volume 83.7 fL (80-98); Platelet Count 187 X10*3/uL (160-400); Red Blood Count 4.17 X10*6/uL (4.60-5.80); Red Cell Distribution Width 12.8 % (11.0-16.0); White Blood Count 6.5 X10*3/uL (4.8-10.8)
[2020-05-26 09:46] LABS: Blood Urea Nitrogen 20 mg/dL (9-16); C Reactive Protein 0.57 mg/dL (< or = 0.50); Calcium 8.4 mg/dL (8.4-10.2); Creatinine Clr Calc Pharmacy 59.6; Estimated Glomerular Filt Rate 53; Glucose Random 96 mg/dL (60-115)
[2020-05-26 09:56] LABS: Anion Gap 14 (12-20); Carbon Dioxide 21 mmol/L (22-29); Chloride 94 mmol/L (96-108); Potassium 4.7 mmol/l (3.3-5.1); Sodium 124 mmol/L (135-145)
--- NOTE | 2020-05-26 11:11 | P.PNIM_ITS ---
Subjective Subjective Date of Service: 05/26/20 Interval History: seen and examined no complaints no issues reported per administrative staff supervisor. reportedly eating and drinking well ROS General - no fevers or chills Cardiovascular - no chest pain Respiratory - no shortness of breath or cough Abdominal- no abdominal pain, nausea, vomiting, diarrhea Physical Exam Vital Signs: Vital Signs: Last Vital Signs Temp 97.7 F 05/26/20 08:00 Pulse 51 05/26/20 08:00 Resp 18 05/26/20 08:00 BP 155/76 H 05/26/20 08:00 Pulse Ox 94 05/26/20 08:00 Body Mass Index 33.3 Const: Other: General - no acute distress, appears comfortable Cardiovascular - regular rate and rhythm, S1-S2 Lungs - normal respiratory effort, clear to auscultation bilaterally, no wheezing Abdomen - soft, nontender, no rebound or guarding Extremities - no edema bilaterally Neuro - awake and alert, no focal deficits Objective Data Current Medications Generic Name Dose Route Start Last Admin Trade Name Freq PRN Reason Stop Dose Admin Acetaminophen 650 mg 05/21/20 18:00 05/24/20 02:01 Acetaminophen 325 Mg Tablet PO 650 mg Q4H PRN Administration Pain, Mild (Pain Scale 1-3) Aspirin 81 mg 05/21/20 18:00 05/26/20 06:10 Aspirin 81 Mg Tab.Chew PO 81 mg DAILY@0600 [facility] Administration Bisacodyl 10 mg 05/21/20 18:00 Bisacodyl 10 Mg Supp.Rect [place] DAILY PRN Constipation Guaifenesin/Dextromethorphan 10 ml 05/21/20 18:00 Guaifenesin Dm 100/10/5 Ml 5 Ml Syrup PO QID PRN Cough Heparin Sodium (Porcine) 5,000 unit 05/21/20 17:46 05/26/20 06:10 Heparin Sodium,Porcine 5,000 Unit/Ml Vial SUBCUT Not Given Q12H [facility] Sodium Chloride 1,000 mls @ 80 mls/hr 05/26/20 11:15 Ns IVCONT 05/26/20 23:44 .[id number] [facility] Loratadine 10 mg 05/21/20 18:00 05/26/20 06:10 Loratadine 10 Mg Tablet PO 10 mg DAILY@0600 [facility] Administration Magnesium Hydroxide 30 ml 05/21/20 18:00 05/25/20 15:11 Milk Of Magnesia 30 Ml Oral.Susp PO 30 ml DAILY PRN Administration Constipation Magnesium Oxide 400 mg 05/21/20 18:00 05/26/20 06:10 Magnesium Oxide 400 Mg Tablet PO 400 mg DAILY@0600 [facility] Administration Metoprolol Succinate 100 mg 05/21/20 18:00 05/26/20 06:10 Metoprolol Succinate Er 100 Mg Tab.Er.24h PO 100 mg DAILY@0600 [facility] Administration Metoprolol Succinate 25 mg 05/21/20 18:00 05/26/20 06:10 Metoprolol Succinate Er 25 Mg Tab.Er.24h PO 25 mg DAILY@0600 [facility] Administration Miconazole Nitrate 1 appl 05/21/20 18:00 Miconazole 2 % Extra Thick Cr 56.7 Gm Tube TOPICAL DAILY PRN SKIN IRRITATION Protocol Nf Med Aloe Vera 10, 10,000 each 05/21/20 18:00 05/26/20 06:16 000 Mg/Capsule PO 10,000 each DAILY@0600 [facility] Administration Patient Own 1 each 05/21/20 18:00 05/26/20 06:16 Medication (Coq10 PO 1 each 200 Mg) DAILY@0600 [facility] Administration Pt Own Ascorbic Acid 250 each 05/21/20 18:00 05/26/20 06:16 125 Mg Gummy PO 250 each DAILY@0600 [facility] Administration Nf Med Vitamin E 180 1 each 05/21/20 18:00 05/26/20 06:16 Mg PO 1 each DAILY@0600 [facility] Administration Pt Own Fish Oil 1000 1 each 05/21/20 18:00 05/26/20 06:16 Mg PO 1 each DAILY@0600 [facility] Administration Nystatin 1 appl 05/21/20 18:00 Nystatin Powder 15 Gm Bottle TOPICAL BID PRN Itching Protocol Prochlorperazine Maleate 10 mg 05/21/20 18:00 Prochlorperazine Maleate 5 Mg Tablet PO Q6H PRN Nausea and Vomiting Sodium Chloride 3 ml 05/22/20 00:00 05/26/20 07:45 0.9 % Sodium Chloride Flush 3 Ml Syringe IVFLUSH 3 ml QSHIFT [facility] Administration Triamcinolone Acetonide 1 appl 05/21/20 18:00 Triamcinolone Acet 0.1 % Oint 15 Gm Tube TOPICAL BID PRN Itching Protocol Vitamin B Complex/Folic Acid 1 cap 05/21/20 18:00 05/26/20 06:10 B Complex W-C No.20/Folic Acid Capsule PO 1 cap DAILY@0600 [facility] Administration Zinc Oxide 1 appl 05/21/20 18:00 Zinc Oxide 20% Ointment 28.35 Gm Tube TOPICAL DAILY PRN SKIN IRRITATION Protocol Labs CBC & Chem 7: 05/26/20 08:40 05/26/20 08:40 Assessment and Plan (1) Chronic a-fib: Status: Acute Assessment and Plan: 75 year male from the [place] who has tested positive for covid 19 on routine testing and is presently assymptomatic 1. Covid-19 Asymptomatic no hypoxia, no respiratory symptoms no benefit of remdesivir / decadron at this time check labs / imaging if patient shows symptoms, otherwise monitor now 2. Hyponatremia downtrending 124 today urine studies reviewed 1L IVF consult nephrology 3. AFIB controlled Not on anticoagulation, unclear why 4. CKD3 stable. 5. Morbid obesity weight loss DVT prophylaxis Heparin
[2020-05-26] MEDS: 0.9 % Sodium Chloride 1,000 ML 80 ML IVCONT (12:12)
--- NOTE | 2020-05-26 13:58 | PC.NURSE ---
Addendum entered by Pina Dominguez RN 05/26/20 15:36: sales vice president in to see pt. explained to pt the necessity of NS IV. Pt agreed to recieve it, but wants to be disconnected when he walks throughout the room. Original Note: NS ordered for low potassium. explained to pt the need for the fluids, and that he could walk around the room with the IV pole if he needed to. pt verbalized understanding. after about 40 mins, pt pounding on glass door with hands stating that he wanted to be disconnected from the IV because it was too difficult to walk around the room with it. told pt that I needed to get my PPE on and I would be right in. a loud crashing sound came from his room, and he had thrown the IV pump and pole on the floor. disconnected pt. pt states he doesn't want the IV fluids because he doesn't think he needs them. re-educated pt regarding the need for IV fluids and informed MD.
[2020-05-26] MEDS: Acetaminophen 325 MG TABLET 650 MG PO (14:24)
[2020-05-27] VITALS: BP 128/57; PULSE 60; RESP 18; TEMP 36.4; O2SAT 97
[2020-05-27 04:00] VITALS: BP 127/63; PULSE 56; RESP 16; TEMP 36.2; O2SAT 97
[2020-05-27] MEDS: Acetaminophen 325 MG TABLET 650 MG PO (04:44)
[2020-05-27] MEDS: Magnesium Oxide 400 MG TABLET PO (06:10)
[2020-05-27] MEDS: Aspirin 81 MG TAB.CHEW PO (06:10)
[2020-05-27] MEDS: Loratadine 10 MG TABLET PO (06:10)
[2020-05-27] MEDS: Metoprolol Succinate ER 100 MG TAB.ER.24H PO (06:11)
[2020-05-27] MEDS: Metoprolol Succinate ER 25 MG TAB.ER.24H PO (06:11)
[2020-05-27 08:00] VITALS: BP 111/51; PULSE 50; RESP 20; TEMP 36.4; O2SAT 97
[2020-05-27] MEDS: 0.9 % Sodium Chloride Flush 3 ML SYRINGE IVFLUSH ×2 (08:00→16:00)
[2020-05-27 10:40] LABS: Anion Gap 16 (12-20); Blood Urea Nitrogen 21 mg/dL (9-16); Calcium 8.4 mg/dL (8.4-10.2); Carbon Dioxide 19 mmol/L (22-29); Chloride 98 mmol/L (96-108); Estimated Glomerular Filt Rate 53; Glucose Random 100 mg/dL (60-115); Potassium 4.9 mmol/l (3.3-5.1); Sodium 128 mmol/L (135-145)
[2020-05-27 12:00] VITALS: BP 130/55; PULSE 62; RESP 18; TEMP 36.9; O2SAT 98
--- NOTE | 2020-05-27 12:37 | PM.PNNEP ---
Subjective Subjective Date of Service: 05/27/20 Interval history: Still drinks plenty of water Physical Exam Vital Signs: Vital Signs: Last Vital Signs Temp 97.5 F 05/27/20 08:00 Pulse 50 05/27/20 08:00 Resp 20 05/27/20 08:00 BP 111/51 L 05/27/20 08:00 Pulse Ox 97 05/27/20 08:00 Body Mass Index 33.3 Const: General: cooperative Neck: Neck: Yes supple Cardio: Heart sounds: no gallops Neuro: Gait exam (Neuro): not ataxic Objective Data Labs CBC & Chem 7: 05/26/20 08:40 05/27/20 09:22 Labs: Laboratory Results - last 24 hr 05/27/20 09:22 Sodium 128 L Potassium 4.9 Chloride 98 Carbon Dioxide 19 L Anion Gap 16 BUN 21 H Creatinine 1.31 Estim Creat Clear Calc 60.0 Estimated GFR 53 Random Glucose 100 Calcium 8.4 Assessment & Plan Assessment and plan (1) Hypo-osmolar hyponatremia: Problem details: Na is better RESTRICT free water intake to 1L /24 hrs Goal pNa > 130 No need for hypertonic or UREA yet Status: Acute Time Spent With Patient Time: Total time spent is greater than 50% in coordination of care (as documented) at patient's floor/unit and/or counseling patient:
--- NOTE | 2020-05-27 15:40 | P.PNIM_ITS ---
Subjective Subjective Date of Service: 05/27/20 Interval History: seen and examined no complaints tells me he is drink 3-4L water daily advised to drink 1L ROS General - no fevers or chills Cardiovascular - no chest pain Respiratory - no shortness of breath or cough Abdominal- no abdominal pain, nausea, vomiting, diarrhea Physical Exam Vital Signs: Vital Signs: Last Vital Signs Temp 98.5 F 05/27/20 12:00 Pulse 62 05/27/20 12:00 Resp 18 05/27/20 12:00 BP 130/55 L 05/27/20 12:00 Pulse Ox 98 05/27/20 12:00 Body Mass Index 33.3 Const: Other: General - no acute distress, appears comfortable Cardiovascular - regular rate and rhythm, S1-S2 Lungs - normal respiratory effort, clear to auscultation bilaterally, no wheezing Abdomen - soft, nontender, no rebound or guarding Extremities - no edema bilaterally Neuro - awake and alert, no focal deficits Objective Data Current Medications Generic Name Dose Route Start Last Admin Trade Name Freq PRN Reason Stop Dose Admin Acetaminophen 650 mg 05/21/20 18:00 05/27/20 04:44 Acetaminophen 325 Mg Tablet PO 650 mg Q4H PRN Administration Pain, Mild (Pain Scale 1-3) Aspirin 81 mg 05/21/20 18:00 05/27/20 06:10 Aspirin 81 Mg Tab.Chew PO 81 mg DAILY@0600 [facility] Administration Bisacodyl 10 mg 05/21/20 18:00 Bisacodyl 10 Mg Supp.Rect SC DAILY PRN Constipation Guaifenesin/Dextromethorphan 10 ml 05/21/20 18:00 Guaifenesin Dm 100/10/5 Ml 5 Ml Syrup PO QID PRN Cough Heparin Sodium (Porcine) 5,000 unit 05/21/20 17:46 05/27/20 04:44 Heparin Sodium,Porcine 5,000 Unit/Ml Vial SUBCUT Not Given Q12H [facility] Loratadine 10 mg 05/21/20 18:00 05/27/20 06:10 Loratadine 10 Mg Tablet PO 10 mg DAILY@0600 [facility] Administration Magnesium Hydroxide 30 ml 05/21/20 18:00 05/25/20 15:11 Milk Of Magnesia 30 Ml Oral.Susp PO 30 ml DAILY PRN Administration Constipation Magnesium Oxide 400 mg 05/21/20 18:00 05/27/20 06:10 Magnesium Oxide 400 Mg Tablet PO 400 mg DAILY@0600 [facility] Administration Metoprolol Succinate 100 mg 05/21/20 18:00 05/27/20 06:11 Metoprolol Succinate Er 100 Mg Tab.Er.24h PO 100 mg DAILY@0600 [facility] Administration Metoprolol Succinate 25 mg 05/21/20 18:00 05/27/20 06:11 Metoprolol Succinate Er 25 Mg Tab.Er.24h PO 25 mg DAILY@0600 [facility] Administration Miconazole Nitrate 1 appl 05/21/20 18:00 Miconazole 2 % Extra Thick Cr 56.7 Gm Tube TOPICAL DAILY PRN SKIN IRRITATION Protocol Nf Med Aloe Vera 10, 10,000 each 05/21/20 18:00 05/27/20 06:11 000 Mg/Capsule PO 10,000 each DAILY@0600 [facility] Administration Patient Own 1 each 05/21/20 18:00 05/27/20 06:11 Medication (Coq10 PO 1 each 200 Mg) DAILY@0600 [facility] Administration Pt Own Ascorbic Acid 250 each 05/21/20 18:00 05/27/20 06:11 125 Mg Gummy PO 250 each DAILY@0600 [facility] Administration Nf Med Vitamin E 180 1 each 05/21/20 18:00 05/27/20 06:11 Mg PO 1 each DAILY@0600 [facility] Administration Pt Own Fish Oil 1000 1 each 05/21/20 18:00 05/27/20 06:14 Mg PO 1 each DAILY@0600 [facility] Administration Nystatin 1 appl 05/21/20 18:00 Nystatin Powder 15 Gm Bottle TOPICAL BID PRN Itching Protocol Prochlorperazine Maleate 10 mg 05/21/20 18:00 Prochlorperazine Maleate 5 Mg Tablet PO Q6H PRN Nausea and Vomiting Sodium Chloride 3 ml 05/22/20 00:00 05/27/20 08:00 0.9 % Sodium Chloride Flush 3 Ml Syringe IVFLUSH 3 ml QSHIFT [facility] Administration Triamcinolone Acetonide 1 appl 05/21/20 18:00 Triamcinolone Acet 0.1 % Oint 15 Gm Tube TOPICAL BID PRN Itching Protocol Vitamin B Complex/Folic Acid 1 cap 05/21/20 18:00 05/27/20 06:10 B Complex W-C No.20/Folic Acid Capsule PO 1 cap DAILY@0600 [facility] Administration Zinc Oxide 1 appl 05/21/20 18:00 Zinc Oxide 20% Ointment 28.35 Gm Tube TOPICAL DAILY PRN SKIN IRRITATION Protocol Labs CBC & Chem 7: 05/26/20 08:40 05/27/20 09:22 Assessment and Plan (1) Chronic a-fib: Status: Acute Assessment and Plan: 75 year male from the [place] who has tested positive for covid 19 on routine testing and is presently assymptomatic 1. Covid-19 Asymptomatic no hypoxia, no respiratory symptoms no benefit of remdesivir / decadron at this time check labs / imaging if patient shows symptoms, otherwise monitor now 2. Hyponatremia fluid restrict 1L SNa 128 today Nephrology input appreciated 3. AFIB controlled Not on anticoagulation, unclear why 4. CKD3 stable. 5. Morbid obesity weight loss DVT prophylaxis Heparin
[2020-05-27 16:00] VITALS: BP 163/89; PULSE 65; RESP 18; TEMP 36.3; O2SAT 99
[2020-05-27 19:54] VITALS: BP 160/83; PULSE 55; RESP 18; TEMP 36.7; O2SAT 97
[2020-05-28] VITALS (8 sets, daily range): BP systolic 135–169; BP diastolic 52–78; PULSE 55–64; RESP 16–20; TEMP 35.8–36.6; O2SAT 97–99
[2020-05-28] MEDS: Acetaminophen 325 MG TABLET 650 MG PO (01:57)
[2020-05-28] MEDS: 0.9 % Sodium Chloride Flush 3 ML SYRINGE IVFLUSH ×3 (02:49→15:49)
[2020-05-28] MEDS: Loratadine 10 MG TABLET PO (05:56)
[2020-05-28] MEDS: Metoprolol Succinate ER 100 MG TAB.ER.24H PO (05:58)
[2020-05-28] MEDS: Metoprolol Succinate ER 25 MG TAB.ER.24H PO (05:59)
[2020-05-28] MEDS: Aspirin 81 MG TAB.CHEW PO (06:00)
[2020-05-28] MEDS: Magnesium Oxide 400 MG TABLET PO (06:00)
--- NOTE | 2020-05-28 09:01 | P.PNIM_ITS ---
Subjective Subjective Date of Service: 05/28/20 Interval History: seen and examined no complaints drinking less water ROS General - no fevers or chills Cardiovascular - no chest pain Respiratory - no shortness of breath or cough Abdominal- no abdominal pain, nausea, vomiting, diarrhea Physical Exam Vital Signs: Vital Signs: Last Vital Signs Temp 97.2 F 05/28/20 07:39 Pulse 57 05/28/20 07:39 Resp 16 05/28/20 07:39 BP 138/52 L 05/28/20 07:39 Pulse Ox 97 05/28/20 07:39 Body Mass Index 33.3 Const: Other: General - no acute distress, appears comfortable Cardiovascular - regular rate and rhythm, S1-S2 Lungs - normal respiratory effort, clear to auscultation bilaterally, no wheezing Abdomen - soft, nontender, no rebound or guarding Extremities - no edema bilaterally Neuro - awake and alert, no focal deficits Objective Data Current Medications Generic Name Dose Route Start Last Admin Trade Name Freq PRN Reason Stop Dose Admin Acetaminophen 650 mg 05/21/20 18:00 05/28/20 01:57 Acetaminophen 325 Mg Tablet PO 650 mg Q4H PRN Administration Pain, Mild (Pain Scale 1-3) Aspirin 81 mg 05/21/20 18:00 05/28/20 06:00 Aspirin 81 Mg Tab.Chew PO 81 mg DAILY@0600 [facility] Administration Bisacodyl 10 mg 05/21/20 18:00 Bisacodyl 10 Mg Supp.Rect MD DAILY PRN Constipation Guaifenesin/Dextromethorphan 10 ml 05/21/20 18:00 Guaifenesin Dm 100/10/5 Ml 5 Ml Syrup PO QID PRN Cough Heparin Sodium (Porcine) 5,000 unit 05/21/20 17:46 05/28/20 07:58 Heparin Sodium,Porcine 5,000 Unit/Ml Vial SUBCUT Not Given Q12H [facility] Loratadine 10 mg 05/21/20 18:00 05/28/20 05:56 Loratadine 10 Mg Tablet PO 10 mg DAILY@0600 [facility] Administration Magnesium Hydroxide 30 ml 05/21/20 18:00 05/25/20 15:11 Milk Of Magnesia 30 Ml Oral.Susp PO 30 ml DAILY PRN Administration Constipation Magnesium Oxide 400 mg 05/21/20 18:00 05/28/20 06:00 Magnesium Oxide 400 Mg Tablet PO 400 mg DAILY@0600 [facility] Administration Metoprolol Succinate 100 mg 05/21/20 18:00 05/28/20 05:58 Metoprolol Succinate Er 100 Mg Tab.Er.24h PO 100 mg DAILY@0600 [facility] Administration Metoprolol Succinate 25 mg 05/21/20 18:00 05/28/20 05:59 Metoprolol Succinate Er 25 Mg Tab.Er.24h PO 25 mg DAILY@0600 [facility] Administration Miconazole Nitrate 1 appl 05/21/20 18:00 Miconazole 2 % Extra Thick Cr 56.7 Gm Tube TOPICAL DAILY PRN SKIN IRRITATION Protocol Nf Med Aloe Vera 10, 10,000 each 05/21/20 18:00 05/28/20 06:17 000 Mg/Capsule PO 10,000 each DAILY@0600 [facility] Administration Patient Own 1 each 05/21/20 18:00 05/28/20 06:18 Medication (Coq10 PO 1 each 200 Mg) DAILY@0600 [facility] Administration Pt Own Ascorbic Acid 250 each 05/21/20 18:00 05/28/20 06:18 125 Mg Gummy PO 250 each DAILY@0600 [facility] Administration Nf Med Vitamin E 180 1 each 05/21/20 18:00 05/28/20 06:17 Mg PO 1 each DAILY@0600 [facility] Administration Pt Own Fish Oil 1000 1 each 05/21/20 18:00 05/28/20 06:18 Mg PO 1 each DAILY@0600 [facility] Administration Nystatin 1 appl 05/21/20 18:00 Nystatin Powder 15 Gm Bottle TOPICAL BID PRN Itching Protocol Prochlorperazine Maleate 10 mg 05/21/20 18:00 Prochlorperazine Maleate 5 Mg Tablet PO Q6H PRN Nausea and Vomiting Sodium Chloride 3 ml 05/22/20 00:00 05/28/20 08:09 0.9 % Sodium Chloride Flush 3 Ml Syringe IVFLUSH 3 ml QSHIFT [facility] Administration Triamcinolone Acetonide 1 appl 05/21/20 18:00 Triamcinolone Acet 0.1 % Oint 15 Gm Tube TOPICAL BID PRN Itching Protocol Vitamin B Complex/Folic Acid 1 cap 05/21/20 18:00 05/28/20 05:59 B Complex W-C No.20/Folic Acid Capsule PO 1 cap DAILY@0600 [facility] Administration Zinc Oxide 1 appl 05/21/20 18:00 Zinc Oxide 20% Ointment 28.35 Gm Tube TOPICAL DAILY PRN SKIN IRRITATION Protocol Labs CBC & Chem 7: 05/26/20 08:40 05/28/20 08:16 Assessment and Plan (1) Chronic a-fib: Status: Acute Assessment and Plan: 75 year male from the [place] who has tested positive for covid 19 on routine testing and is presently assymptomatic 1. Covid-19 Asymptomatic no hypoxia, no respiratory symptoms no benefit of remdesivir / decadron at this time check labs / imaging if patient shows symptoms, otherwise monitor now 2. Hyponatremia improved SNa 135 Liberalize free water to 1.8L Nephrology input appreciated 3. AFIB controlled Not on anticoagulation, unclear why 4. CKD3 stable. 5. Morbid obesity weight loss DVT prophylaxis Heparin
[2020-05-28 09:15] LABS: Anion Gap 12 (12-20); Blood Urea Nitrogen 24 mg/dL (9-16); Calcium 8.5 mg/dL (8.4-10.2); Carbon Dioxide 25 mmol/L (22-29); Chloride 103 mmol/L (96-108); Creatinine Clr Calc Pharmacy 54.2; Estimated Glomerular Filt Rate 48; Glucose Random 92 mg/dL (60-115); Potassium 4.6 mmol/l (3.3-5.1); Sodium 135 mmol/L (135-145)
--- NOTE | 2020-05-28 14:59 | PM.PNNEP ---
Subjective Subjective Date of Service: 05/28/20 Interval history: Events noted NA improved Cr has bumped up UO 3.2L ! Physical Exam Vital Signs: Vital Signs: Last Vital Signs Temp 97.0 F 05/28/20 11:47 Pulse 55 05/28/20 11:47 Resp 17 05/28/20 11:47 BP 135/57 L 05/28/20 11:47 Pulse Ox 99 05/28/20 11:47 Body Mass Index 33.3 Const: General: cooperative Neck: Neck: Yes supple Cardio: Heart sounds: no gallops Neuro: Gait exam (Neuro): not ataxic Objective Data Labs CBC & Chem 7: 05/26/20 08:40 05/28/20 08:16 Labs: Laboratory Results - last 24 hr 05/28/20 08:16 Sodium 135 Potassium 4.6 Chloride 103 Carbon Dioxide 25 Anion Gap 12 BUN 24 H Creatinine 1.45 H Estim Creat Clear Calc 54.2 Estimated GFR 48 Random Glucose 92 Calcium 8.5 Assessment & Plan Assessment and plan (1) Hypo-osmolar hyponatremia: Problem details: Na is better RESTRICT free water intake Goal pNa > 130 No need for hypertonic or UREA UO > 3.2L Will cehck /urine Na and OSM again DAREK in a setting of COVID -19 Keep I = O Status: Acute Time Spent With Patient Time: Total time spent is greater than 50% in coordination of care (as documented) at patient's floor/unit and/or counseling patient:
[2020-05-28 17:21] LABS: Creatinine Urine 29.07 mg/dL
[2020-05-28 17:25] LABS: Total Protein Urine Random < 7 mg/dL (<12)
[2020-05-29] VITALS (8 sets, daily range): BP systolic 103–153; BP diastolic 62–69; PULSE 51–67; RESP 17–18; TEMP 36.2–36.8; O2SAT 96–99
[2020-05-29] MEDS: 0.9 % Sodium Chloride Flush 3 ML SYRINGE IVFLUSH ×3 (00:01→15:05)
[2020-05-29] MEDS: Aspirin 81 MG TAB.CHEW PO (06:12)
[2020-05-29] MEDS: Metoprolol Succinate ER 25 MG TAB.ER.24H PO (06:12)
[2020-05-29] MEDS: Loratadine 10 MG TABLET PO (06:12)
[2020-05-29] MEDS: Magnesium Oxide 400 MG TABLET PO (06:12)
[2020-05-29] MEDS: Metoprolol Succinate ER 100 MG TAB.ER.24H PO (06:13)
[2020-05-29 07:21] LABS: Anion Gap 14 (12-20); Blood Urea Nitrogen 29 mg/dL (9-16); Calcium 8.4 mg/dL (8.4-10.2); Carbon Dioxide 23 mmol/L (22-29); Chloride 104 mmol/L (96-108); Creatinine Clr Calc Pharmacy 54.2; Estimated Glomerular Filt Rate 48; Glucose Random 91 mg/dL (60-115); Potassium 4.6 mmol/l (3.3-5.1); Sodium 136 mmol/L (135-145)
--- NOTE | 2020-05-29 11:17 | HO.PM.IMPN ---
Subjective Subjective Date of Service: 05/29/20 Interval History: seen and examined no new issues ROS General - no fevers or chills Cardiovascular - no chest pain Respiratory - no shortness of breath or cough Abdominal- no abdominal pain, nausea, vomiting, diarrhea Physical Exam Vital Signs: Vital Signs: Last Vital Signs Temp 98.0 F 05/29/20 07:40 Pulse 51 05/29/20 07:40 Resp 18 05/29/20 07:40 BP 144/69 H 05/29/20 07:40 Pulse Ox 98 05/29/20 07:40 Body Mass Index 33.3 Const: Other: General - no acute distress, appears comfortable Cardiovascular - regular rate and rhythm, S1-S2 Lungs - normal respiratory effort, clear to auscultation bilaterally, no wheezing Abdomen - soft, nontender, no rebound or guarding Extremities - no edema bilaterally Neuro - awake and alert, no focal deficits Objective Data Current Medications Generic Name Dose Route Start Last Admin Trade Name Freq PRN Reason Stop Dose Admin Acetaminophen 650 mg 05/21/20 18:00 05/28/20 01:57 Acetaminophen 325 Mg Tablet PO 650 mg Q4H PRN Administration Pain, Mild (Pain Scale 1-3) Aspirin 81 mg 05/21/20 18:00 05/29/20 06:12 Aspirin 81 Mg Tab.Chew PO 81 mg DAILY@0600 [facility] Administration Bisacodyl 10 mg 05/21/20 18:00 Bisacodyl 10 Mg Supp.Rect [place] DAILY PRN Constipation Guaifenesin/Dextromethorphan 10 ml 05/21/20 18:00 Guaifenesin Dm 100/10/5 Ml 5 Ml Syrup PO QID PRN Cough Heparin Sodium (Porcine) 5,000 unit 05/21/20 17:46 05/29/20 07:35 Heparin Sodium,Porcine 5,000 Unit/Ml Vial SUBCUT Not Given Q12H [facility] Loratadine 10 mg 05/21/20 18:00 05/29/20 06:12 Loratadine 10 Mg Tablet PO 10 mg DAILY@0600 [facility] Administration Magnesium Hydroxide 30 ml 05/21/20 18:00 05/25/20 15:11 Milk Of Magnesia 30 Ml Oral.Susp PO 30 ml DAILY PRN Administration Constipation Magnesium Oxide 400 mg 05/21/20 18:00 05/29/20 06:12 Magnesium Oxide 400 Mg Tablet PO 400 mg DAILY@0600 [facility] Administration Metoprolol Succinate 100 mg 05/21/20 18:00 05/29/20 06:13 Metoprolol Succinate Er 100 Mg Tab.Er.24h PO 100 mg DAILY@0600 [facility] Administration Metoprolol Succinate 25 mg 05/21/20 18:00 05/29/20 06:12 Metoprolol Succinate Er 25 Mg Tab.Er.24h PO 25 mg DAILY@0600 [facility] Administration Miconazole Nitrate 1 appl 05/21/20 18:00 Miconazole 2 % Extra Thick Cr 56.7 Gm Tube TOPICAL DAILY PRN SKIN IRRITATION Protocol Nf Med Aloe Vera 10, 10,000 each 05/21/20 18:00 05/28/20 06:17 000 Mg/Capsule PO 10,000 each DAILY@0600 [facility] Administration Patient Own 1 each 05/21/20 18:00 05/29/20 06:13 Medication (Coq10 PO 1 each 200 Mg) DAILY@0600 [facility] Administration Pt Own Ascorbic Acid 250 each 05/21/20 18:00 05/29/20 06:13 125 Mg Gummy PO 250 each DAILY@0600 [facility] Administration Nf Med Vitamin E 180 1 each 05/21/20 18:00 05/29/20 06:13 Mg PO 1 each DAILY@0600 [facility] Administration Pt Own Fish Oil 1000 1 each 05/21/20 18:00 05/29/20 06:13 Mg PO 1 each DAILY@0600 [facility] Administration Nystatin 1 appl 05/21/20 18:00 Nystatin Powder 15 Gm Bottle TOPICAL BID PRN Itching Protocol Prochlorperazine Maleate 10 mg 05/21/20 18:00 Prochlorperazine Maleate 5 Mg Tablet PO Q6H PRN Nausea and Vomiting Sodium Chloride 3 ml 05/22/20 00:00 05/29/20 07:35 0.9 % Sodium Chloride Flush 3 Ml Syringe IVFLUSH 3 ml QSHIFT [facility] Administration Triamcinolone Acetonide 1 appl 05/21/20 18:00 Triamcinolone Acet 0.1 % Oint 15 Gm Tube TOPICAL BID PRN Itching Protocol Vitamin B Complex/Folic Acid 1 cap 05/21/20 18:00 05/29/20 06:12 B Complex W-C No.20/Folic Acid Capsule PO 1 cap DAILY@0600 [facility] Administration Zinc Oxide 1 appl 05/21/20 18:00 Zinc Oxide 20% Ointment 28.35 Gm Tube TOPICAL DAILY PRN SKIN IRRITATION Protocol Labs CBC & Chem 7: 05/26/20 08:40 05/29/20 06:06 Assessment and Plan (1) Chronic a-fib: Status: Acute Assessment and Plan: 75 year male from the [place] who has tested positive for covid 19 on routine testing and is presently assymptomatic 1. Covid-19 Asymptomatic no hypoxia, no respiratory symptoms no benefit of remdesivir / decadron at this time check labs / imaging if patient shows symptoms, otherwise monitor now 2. Hyponatremia SNa stable 135 Fluid restrict 1.8L Nephrology input appreciated 3. AFIB controlled Not on anticoagulation, unclear why 4. CKD3 SCr stable 5. Morbid obesity weight loss DVT prophylaxis Heparin medically stable
--- NOTE | 2020-05-29 17:24 | P.PNNP_ITS ---
Subjective Subjective Date of Service: 05/29/20 Interval history: seen and examined no new issues ROS General - no fevers or chills Cardiovascular - no chest pain Respiratory - no shortness of breath or cough Abdominal- no abdominal pain, nausea, vomiting, diarrhea Physical Exam Vital Signs: Vital Signs: Last Vital Signs Temp 97.2 F 05/29/20 16:00 Pulse 62 05/29/20 16:00 Resp 18 05/29/20 16:00 BP 128/66 05/29/20 16:00 Pulse Ox 97 05/29/20 16:00 Body Mass Index 33.3 Const: General: no acute distress Orientation/consciousness: patient orien autumn x3 Neck: Neck: Yes supple Resp: Auscultation: diminished lung sounds Cardio: Rate: regular rate GI: Palpation (GI): Soft to palpation Neuro: General: patient oriented x3 Objective Data Labs CBC & Chem 7: 05/26/20 08:40 05/29/20 06:06 Labs: Laboratory Results - last 24 hr 05/28/20 05/29/20 16:00 06:06 Sodium 136 Potassium 4.6 Chloride 104 Carbon Dioxide 23 Anion Gap 14 BUN 29 H Creatinine 1.45 H Estim Creat Clear Calc 54.2 Estimated GFR 48 Random Glucose 91 Calcium 8.4 U Random Total Protein < 7 Assessment & Plan Assessment and plan (1) Hypo-osmolar hyponatremia: Problem details: Na is better Renal functions stable Continue current supportive care Status: Acute Time Spent With Patient Time: Total time spent is greater than 50% in coordination of care (as documented) at patient's floor/unit and/or counseling patient:
--- NOTE | 2020-05-29 18:15 | CONS_ITS ---
DATE OF SERVICE: 05/26/2020 REASON FOR CONSULTATION: I was called to see this patient to assist in the management of hyponatremia. HISTORY OF PRESENT ILLNESS: To summarize, Miguel Ángel is a 75-year-old man with history of obesity, chronic atrial fibrillation, chronic kidney disease with edema and dermatitis who is a resident of [facility]. He had routine testing for COVID and he tested positive. He has been admitted in isolation and at the time of admission, serum sodium was 132, and over the last 4 days, the sodium has gradually dropped down to 124. Urine sodium was less than 20 and hence this consultation. PAST MEDICAL HISTORY: Ongoing medical problems include history of anemia, B-cell lymphoma, morbid obesity, chronic atrial fibrillation, dermatitis, osteoarthritis, stage 3 chronic kidney disease. SOCIAL HISTORY: He is a resident of [facility]. No history of alcohol abuse, drug abuse at present. REVIEW OF SYSTEM: He walks with a walker. No headache, nausea, or vomiting. No polyuria or polydipsia. All other systems were reviewed. EXAMINATION: GENERAL: The patient is a 75-year-old man who is obese, comfortable, not in any distress. NECK: Supple. No JVD. LUNGS: Air entry equal. Few rhonchi. HEART: S1, S2 heard. No gallop or rub. ABDOMEN: Obese, soft, nontender. EXTREMITIES: With some edema which is chronic. Blood pressure 115/51, pulse 53. LABS: Urine osmolality 162. Urine sodium less than 20. Serum sodium 124, BUN 20, creatinine 1.32. On admission, BUN was 34, creatinine 1.77. Serum osmolality 267. IMPRESSION: 75-year-old man with hyponatremia most likely due to hypovolemia. Low urine sodium suggestive of hypovolemia. He did have acute kidney injury, most likely due to hypoperfusion from volume depletion and renal function has improved. RECOMMENDATIONS: My recommendation will be to keep him in an oral free water restriction of 1 L per 24 hours. I would administer IV normal saline at 50-75 mL/hour x1 L and reassess serum sodium. The renal function should improve with hydration and the serum sodium should also gradually improve. We will follow him along with the team. Dominick Nunez MD BPA/MODL / [id number]
[2020-05-30] VITALS (7 sets, daily range): BP systolic 118–155; BP diastolic 58–88; PULSE 53–72; RESP 14–18; TEMP 35.7–36.1; O2SAT 98–100
[2020-05-30] MEDS: 0.9 % Sodium Chloride Flush 3 ML SYRINGE IVFLUSH ×3 (00:06→16:57)
[2020-05-30] MEDS: Loratadine 10 MG TABLET PO (06:17)
[2020-05-30] MEDS: Aspirin 81 MG TAB.CHEW PO (06:17)
[2020-05-30] MEDS: Magnesium Oxide 400 MG TABLET PO (06:17)
[2020-05-30] MEDS: Metoprolol Succinate ER 25 MG TAB.ER.24H PO (06:23)
[2020-05-30] MEDS: Metoprolol Succinate ER 100 MG TAB.ER.24H PO (06:24)
[2020-05-30] MEDS: Zinc Oxide 20% Ointment 28.35 GM TUBE 1 APPL TOPICAL (07:49)
--- NOTE | 2020-05-30 11:56 | MHC.CLN ---
F/U 100% PO INTAKE (05/26-05/30) DIET RX: REGULAR-APPROPRIATE 2000 CALORIES PER DAY WILL PROMOTE SLOW WT LOSS FOLLOWING
--- NOTE | 2020-05-30 14:39 | MHC.CM.PN ---
Met with pt to ask if he wanted CM to contact his sister to give status update: pt states he calls his family daily and an CM call is not needed.
--- NOTE | 2020-05-30 16:37 | P.PNIM_ITS ---
Subjective Subjective Date of Service: 05/30/20 Interval History: seen and examined no new issues ROS General - no fevers or chills Cardiovascular - no chest pain Respiratory - no shortness of breath or cough Abdominal- no abdominal pain, nausea, vomiting, diarrhea Review of Systems Gen: no fever Resp: no sob, no cough CV: no chest, no PARADA, GI: No n/v, no abd pain Neuro: No confusion Physical Exam Vital Signs: Vital Signs: Last Vital Signs Temp 96.3 F L 05/30/20 16:00 Pulse 61 05/30/20 16:00 Resp 18 05/30/20 16:00 BP 122/62 05/30/20 16:00 Pulse Ox 100 05/30/20 16:00 Body Mass Index 33.3 Const: Other: General - no acute distress, appears comfortable Cardiovascular - regular rate and rhythm, S1-S2 Lungs - normal respiratory effort, clear to auscultation bilaterally, no wheezing Abdomen - soft, nontender, no rebound or guarding Extremities - no edema Neuro - awake and alert, no focal deficits Objective Data Current Medications Generic Name Dose Route Start Last Admin Trade Name Freq PRN Reason Stop Dose Admin Acetaminophen 650 mg 05/21/20 18:00 05/28/20 01:57 Acetaminophen 325 Mg Tablet PO 650 mg Q4H PRN Administration Pain, Mild (Pain Scale 1-3) Aspirin 81 mg 05/21/20 18:00 05/30/20 06:17 Aspirin 81 Mg Tab.Chew PO 81 mg DAILY@0600 [facility] Administration Bisacodyl 10 mg 05/21/20 18:00 Bisacodyl 10 Mg Supp.Rect MT DAILY PRN Constipation Guaifenesin/Dextromethorphan 10 ml 05/21/20 18:00 Guaifenesin Dm 100/10/5 Ml 5 Ml Syrup PO QID PRN Cough Heparin Sodium (Porcine) 5,000 unit 05/21/20 17:46 05/30/20 06:27 Heparin Sodium,Porcine 5,000 Unit/Ml Vial SUBCUT Not Given Q12H [facility] Loratadine 10 mg 05/21/20 18:00 05/30/20 06:17 Loratadine 10 Mg Tablet PO 10 mg DAILY@0600 [facility] Administration Magnesium Hydroxide 30 ml 05/21/20 18:00 05/25/20 15:11 Milk Of Magnesia 30 Ml Oral.Susp PO 30 ml DAILY PRN Administration Constipation Magnesium Oxide 400 mg 05/21/20 18:00 05/30/20 06:17 Magnesium Oxide 400 Mg Tablet PO 400 mg DAILY@0600 [facility] Administration Metoprolol Succinate 100 mg 05/21/20 18:00 05/30/20 06:24 Metoprolol Succinate Er 100 Mg Tab.Er.24h PO 100 mg DAILY@0600 [facility] Administration Metoprolol Succinate 25 mg 05/21/20 18:00 05/30/20 06:23 Metoprolol Succinate Er 25 Mg Tab.Er.24h PO 25 mg DAILY@0600 [facility] Administration Miconazole Nitrate 1 appl 05/21/20 18:00 Miconazole 2 % Extra Thick Cr 56.7 Gm Tube TOPICAL DAILY PRN SKIN IRRITATION Protocol Nf Med Aloe Vera 10, 10,000 each 05/21/20 18:00 05/30/20 06:30 000 Mg/Capsule PO 10,000 each DAILY@0600 [facility] Administration Patient Own 1 each 05/21/20 18:00 05/30/20 06:31 Medication (Coq10 PO 1 each 200 Mg) DAILY@0600 [facility] Administration Pt Own Ascorbic Acid 250 each 05/21/20 18:00 05/30/20 06:31 125 Mg Gummy PO 250 each DAILY@0600 [facility] Administration Nf Med Vitamin E 180 1 each 05/21/20 18:00 05/30/20 06:29 Mg PO 1 each DAILY@0600 [facility] Administration Pt Own Fish Oil 1000 1 each 05/21/20 18:00 05/30/20 06:33 Mg PO 1 each DAILY@0600 [facility] Administration Nystatin 1 appl 05/21/20 18:00 Nystatin Powder 15 Gm Bottle TOPICAL BID PRN Itching Protocol Prochlorperazine Maleate 10 mg 05/21/20 18:00 Prochlorperazine Maleate 5 Mg Tablet PO Q6H PRN Nausea and Vomiting Sodium Chloride 3 ml 05/22/20 00:00 05/30/20 07:34 0.9 % Sodium Chloride Flush 3 Ml Syringe IVFLUSH 3 ml QSHIFT [facility] Administration Triamcinolone Acetonide 1 appl 05/21/20 18:00 Triamcinolone Acet 0.1 % Oint 15 Gm Tube TOPICAL BID PRN Itching Protocol Vitamin B Complex/Folic Acid 1 cap 05/21/20 18:00 05/30/20 06:17 B Complex W-C No.20/Folic Acid Capsule PO 1 cap DAILY@0600 [facility] Administration Zinc Oxide 1 appl 05/21/20 18:00 05/30/20 07:49 Zinc Oxide 20% Ointment 28.35 Gm Tube TOPICAL 1 appl DAILY PRN Administration SKIN IRRITATION Protocol Labs CBC & Chem 7: 05/26/20 08:40 05/29/20 06:06 Assessment and Plan (1) Chronic a-fib: Status: Acute Assessment and Plan: 75 year male from the [place] who has tested positive for covid 19 on routine testing and is presently assymptomatic 1. Covid-19 Patient remains asymptomatic no hypoxia, no respiratory symptoms, no benefit of remdesivir / decadron at this time, continue close clinical follow up 2. Hyponatremia SNa stable 136, will discontinue fluid restriction Nephrology input appreciated 3. AFIB controlled, Not on anticoagulation patient unaware why 4. CKD3 slight bump in creatinine to 1.45 will DC fluid restriction 5. Morbid obesity weight loss recommended DVT prophylaxis Heparin
[2020-05-30] MEDS: Heparin Sodium,Porcine 5,000 UNIT/ML VIAL 5000 UNIT SUBCUT (16:57)
--- NOTE | 2020-05-30 17:25 | PM.PNNEP ---
Subjective Subjective Date of Service: 05/30/20 Interval history: seen and examined no new issues ROS General - no fevers or chills Cardiovascular - no chest pain Respiratory - no shortness of breath or cough Abdominal- no abdominal pain, nausea, vomiting, diarrhea Physical Exam Vital Signs: Vital Signs: Last Vital Signs Temp 96.3 F L 05/30/20 16:00 Pulse 61 05/30/20 16:00 Resp 18 05/30/20 16:00 BP 122/62 05/30/20 16:00 Pulse Ox 100 05/30/20 16:00 Body Mass Index 33.3 Const: General: awake Orientation/consciousness: patient oriented x3 Neck: Neck: Yes supple Resp: Auscultation: diminished lung sounds Cardio: Rate: regular rate GI: Palpation (GI): Soft to palpation Neuro: General: patient oriented x3 Objective Data Labs CBC & Chem 7: 05/26/20 08:40 05/29/20 06:06 Assessment & Plan Assessment and plan (1) Hypo-osmolar hyponatremia: Problem details: Na improved to 136 now Renal functions stable; Has CKD 3 Continue current supportive care Status: Acute Time Spent With Patient Time: Total time spent is greater than 50% in coordination of care (as documented) at patient's floor/unit and/or counseling patient:
[2020-05-31] VITALS (9 sets, daily range): BP systolic 100–158; BP diastolic 38–84; PULSE 53–68; RESP 16–18; TEMP 35.6–36.8; O2SAT 97–99
[2020-05-31] MEDS: 0.9 % Sodium Chloride Flush 3 ML SYRINGE IVFLUSH ×4 (00:05→19:42)
[2020-05-31] MEDS: Metoprolol Succinate ER 100 MG TAB.ER.24H PO (05:35)
[2020-05-31] MEDS: Metoprolol Succinate ER 25 MG TAB.ER.24H PO (05:36)
[2020-05-31] MEDS: Aspirin 81 MG TAB.CHEW PO (05:36)
[2020-05-31] MEDS: Heparin Sodium,Porcine 5,000 UNIT/ML VIAL 5000 UNIT SUBCUT ×2 (05:36→18:03)
[2020-05-31] MEDS: Loratadine 10 MG TABLET PO (05:36)
[2020-05-31] MEDS: Magnesium Oxide 400 MG TABLET PO (05:36)
--- NOTE | 2020-05-31 09:56 | HO.PM.IMPN ---
Subjective Subjective Date of Service: 05/31/20 Interval History: Seen in f/u for covid. Remain symptom freee. No fever and sob Review of Systems Gen: no fever Resp: no sob, no cough CV: no chest, no PARADA, GI: No n/v, no abd pain Neuro: No confusion Physical Exam Vital Signs: Vital Signs: Last Vital Signs Temp 96.1 F L 05/31/20 04:00 Pulse 60 05/31/20 08:00 Resp 18 05/31/20 08:00 BP 132/64 05/31/20 08:00 Pulse Ox 99 05/31/20 08:00 Body Mass Index 33.3 Const: Other: General - no acute distress, appears comfortable Cardiovascular - regular rate Lungs - normal respiratory effort, Abdomen - NT Neuro - awake and alert, no focal deficits Objective Data Current Medications Generic Name Dose Route Start Last Admin Trade Name Freq PRN Reason Stop Dose Admin Acetaminophen 650 mg 05/21/20 18:00 05/28/20 01:57 Acetaminophen 325 Mg Tablet PO 650 mg Q4H PRN Administration Pain, Mild (Pain Scale 1-3) Aspirin 81 mg 05/21/20 18:00 05/31/20 05:36 Aspirin 81 Mg Tab.Chew PO 81 mg DAILY@0600 [facility] Administration Bisacodyl 10 mg 05/21/20 18:00 Bisacodyl 10 Mg Supp.Rect TN DAILY PRN Constipation Guaifenesin/Dextromethorphan 10 ml 05/21/20 18:00 Guaifenesin Dm 100/10/5 Ml 5 Ml Syrup PO QID PRN Cough Heparin Sodium (Porcine) 5,000 unit 05/21/20 17:46 05/31/20 05:36 Heparin Sodium,Porcine 5,000 Unit/Ml Vial SUBCUT 5,000 unit Q12H [facility] Administration Loratadine 10 mg 05/21/20 18:00 05/31/20 05:36 Loratadine 10 Mg Tablet PO 10 mg DAILY@0600 [facility] Administration Magnesium Hydroxide 30 ml 05/21/20 18:00 05/25/20 15:11 Milk Of Magnesia 30 Ml Oral.Susp PO 30 ml DAILY PRN Administration Constipation Magnesium Oxide 400 mg 05/21/20 18:00 05/31/20 05:36 Magnesium Oxide 400 Mg Tablet PO 400 mg DAILY@0600 [facility] Administration Metoprolol Succinate 100 mg 05/21/20 18:00 05/31/20 05:35 Metoprolol Succinate Er 100 Mg Tab.Er.24h PO 100 mg DAILY@0600 [facility] Administration Metoprolol Succinate 25 mg 05/21/20 18:00 05/31/20 05:36 Metoprolol Succinate Er 25 Mg Tab.Er.24h PO 25 mg DAILY@0600 [facility] Administration Miconazole Nitrate 1 appl 05/21/20 18:00 Miconazole 2 % Extra Thick Cr 56.7 Gm Tube TOPICAL DAILY PRN SKIN IRRITATION Protocol Nf Med Aloe Vera 10, 10,000 each 05/21/20 18:00 05/31/20 05:36 000 Mg/Capsule PO 10,000 each DAILY@0600 [facility] Administration Patient Own 1 each 05/21/20 18:00 05/31/20 05:36 Medication (Coq10 PO 1 each 200 Mg) DAILY@0600 [facility] Administration Pt Own Ascorbic Acid 250 each 05/21/20 18:00 05/31/20 05:36 125 Mg Gummy PO 250 each DAILY@0600 [facility] Administration Nf Med Vitamin E 180 1 each 05/21/20 18:00 05/31/20 05:36 Mg PO 1 each DAILY@0600 [facility] Administration Pt Own Fish Oil 1000 1 each 05/21/20 18:00 05/31/20 05:37 Mg PO 1 each DAILY@0600 [facility] Administration Nystatin 1 appl 05/21/20 18:00 Nystatin Powder 15 Gm Bottle TOPICAL BID PRN Itching Protocol Prochlorperazine Maleate 10 mg 05/21/20 18:00 Prochlorperazine Maleate 5 Mg Tablet PO Q6H PRN Nausea and Vomiting Sodium Chloride 3 ml 05/22/20 00:00 05/31/20 00:05 0.9 % Sodium Chloride Flush 3 Ml Syringe IVFLUSH 3 ml QSHIFT [facility] Administration Triamcinolone Acetonide 1 appl 05/21/20 18:00 Triamcinolone Acet 0.1 % Oint 15 Gm Tube TOPICAL BID PRN Itching Protocol Vitamin B Complex/Folic Acid 1 cap 05/21/20 18:00 05/31/20 05:36 B Complex W-C No.20/Folic Acid Capsule PO 1 cap DAILY@0600 [facility] Administration Zinc Oxide 1 appl 05/21/20 18:00 05/30/20 07:49 Zinc Oxide 20% Ointment 28.35 Gm Tube TOPICAL 1 appl DAILY PRN Administration SKIN IRRITATION Protocol Labs CBC & Chem 7: 05/26/20 08:40 05/29/20 06:06 Assessment and Plan (1) Hypo-osmolar hyponatremia: Problem details: Na improved to 136 now Renal functions stable; Has CKD 3 Continue current supportive care Status: Acute Assessment and Plan: 75 year male from the [place] who has tested positive for covid 19 on routine testing and is presently assymptomatic 1. Covid-19--day 10 Patient remains asymptomatic. Did not need remdesivir, Decadron or other form of treatment 2. Hyponatremia. Fluid restriction as needed . Nephrology input appreciated 3. AFIB controlled, Not on anticoagulation patient unaware why 4. CKD3 slight bump in creatinine to 1.45, follow 5. Morbid obesity weight loss recommended as may affect other health issues DVT prophylaxis Heparin
[2020-06-01] VITALS (7 sets, daily range): BP systolic 121–140; BP diastolic 50–69; PULSE 52–102; RESP 16–18; TEMP 36.6–37.1; O2SAT 98–100
[2020-06-01] MEDS: Loratadine 10 MG TABLET PO (06:00)
[2020-06-01] MEDS: Aspirin 81 MG TAB.CHEW PO (06:52)
[2020-06-01] MEDS: Magnesium Oxide 400 MG TABLET PO (06:53)
--- NOTE | 2020-06-01 08:07 | MHC.PIE ---
p: patient with 125 mg er metoprolol ordered this morning, but HR 52-65 i: notified md e: held metoprolol per md, day shift nurse aware.
[2020-06-01] MEDS: 0.9 % Sodium Chloride Flush 3 ML SYRINGE IVFLUSH ×2 (08:11→16:48)
--- NOTE | 2020-06-01 11:00 | P.PNIM_ITS ---
Subjective Subjective Date of Service: 06/01/20 Interval History: Seen in f/u for covid. Remain symptom freee. Doing well, no new issues Review of Systems Gen: no fever Resp: no sob, no cough CV: no chest, no PARADA, GI: No n/v, no abd pain Neuro: No confusion Physical Exam Vital Signs: Vital Signs: Last Vital Signs Temp 97.9 F 06/01/20 08:00 Pulse 88 06/01/20 08:00 Resp 18 06/01/20 08:00 BP 134/64 06/01/20 08:00 Pulse Ox 99 06/01/20 08:00 Body Mass Index 33.3 Const: Other: General - no acute distress, appears comfortable Cardiovascular - regular rate Lungs - normal respiratory effort, Abdomen - NT Neuro - awake and alert, no focal deficits Objective Data Current Medications Generic Name Dose Route Start Last Admin Trade Name Freq PRN Reason Stop Dose Admin Acetaminophen 650 mg 05/21/20 18:00 05/28/20 01:57 Acetaminophen 325 Mg Tablet PO 650 mg Q4H PRN Administration Pain, Mild (Pain Scale 1-3) Aspirin 81 mg 05/21/20 18:00 06/01/20 06:52 Aspirin 81 Mg Tab.Chew PO 81 mg DAILY@0600 [facility] Administration Bisacodyl 10 mg 05/21/20 18:00 Bisacodyl 10 Mg Supp.Rect IA DAILY PRN Constipation Guaifenesin/Dextromethorphan 10 ml 05/21/20 18:00 Guaifenesin Dm 100/10/5 Ml 5 Ml Syrup PO QID PRN Cough Heparin Sodium (Porcine) 5,000 unit 05/21/20 17:46 06/01/20 06:52 Heparin Sodium,Porcine 5,000 Unit/Ml Vial SUBCUT Not Given Q12H [facility] Loratadine 10 mg 05/21/20 18:00 06/01/20 06:00 Loratadine 10 Mg Tablet PO 10 mg DAILY@0600 [facility] Administration Magnesium Hydroxide 30 ml 05/21/20 18:00 05/25/20 15:11 Milk Of Magnesia 30 Ml Oral.Susp PO 30 ml DAILY PRN Administration Constipation Magnesium Oxide 400 mg 05/21/20 18:00 06/01/20 06:53 Magnesium Oxide 400 Mg Tablet PO 400 mg DAILY@0600 [facility] Administration Metoprolol Succinate 100 mg 05/21/20 18:00 06/01/20 06:54 Metoprolol Succinate Er 100 Mg Tab.Er.24h PO Not Given DAILY@0600 [facility] Metoprolol Succinate 25 mg 05/21/20 18:00 06/01/20 06:55 Metoprolol Succinate Er 25 Mg Tab.Er.24h PO Not Given DAILY@0600 [facility] Miconazole Nitrate 1 appl 05/21/20 18:00 Miconazole 2 % Extra Thick Cr 56.7 Gm Tube TOPICAL DAILY PRN SKIN IRRITATION Protocol Nf Med Aloe Vera 10, 10,000 each 05/21/20 18:00 06/01/20 06:56 000 Mg/Capsule PO 10,000 each DAILY@0600 [facility] Administration Patient Own 1 each 05/21/20 18:00 06/01/20 06:57 Medication (Coq10 PO 1 each 200 Mg) DAILY@0600 [facility] Administration Pt Own Ascorbic Acid 250 each 05/21/20 18:00 06/01/20 06:57 125 Mg Gummy PO 250 each DAILY@0600 [facility] Administration Nf Med Vitamin E 180 1 each 05/21/20 18:00 06/01/20 06:56 Mg PO 1 each DAILY@0600 [facility] Administration Pt Own Fish Oil 1000 1 each 05/21/20 18:00 06/01/20 06:57 Mg PO 1 each DAILY@0600 [facility] Administration Nystatin 1 appl 05/21/20 18:00 Nystatin Powder 15 Gm Bottle TOPICAL BID PRN Itching Protocol Prochlorperazine Maleate 10 mg 05/21/20 18:00 Prochlorperazine Maleate 5 Mg Tablet PO Q6H PRN Nausea and Vomiting Sodium Chloride 3 ml 05/22/20 00:00 06/01/20 08:11 0.9 % Sodium Chloride Flush 3 Ml Syringe IVFLUSH 3 ml QSHIFT [facility] Administration Triamcinolone Acetonide 1 appl 05/21/20 18:00 Triamcinolone Acet 0.1 % Oint 15 Gm Tube TOPICAL BID PRN Itching Protocol Vitamin B Complex/Folic Acid 1 cap 05/21/20 18:00 06/01/20 06:53 B Complex W-C No.20/Folic Acid Capsule PO 1 cap DAILY@0600 [facility] Administration Zinc Oxide 1 appl 05/21/20 18:00 05/30/20 07:49 Zinc Oxide 20% Ointment 28.35 Gm Tube TOPICAL 1 appl DAILY PRN Administration SKIN IRRITATION Protocol Labs CBC & Chem 7: 05/26/20 08:40 05/29/20 06:06 Assessment and Plan (1) Hypo-osmolar hyponatremia: Problem details: Na improved to 136 now Renal functions stable; Has CKD 3 Continue current supportive care Status: Acute Assessment and Plan: 75 year male from the [place] who has tested positive for covid 19 on routine testing and is presently assymptomatic 1. Covid-19--day 11 Patient remains asymptomatic. Did not need remdesivir, Decadron or other form of treatment 2. Hyponatremia. Fluid restriction as needed. Presently not indicated Nephrology input appreciated 3. AFIB controlled, Not on anticoagulation patient unaware why 4. CKD3 slight bump in creatinine to 1.45, follow 5. Morbid obesity weight loss recommended as may affect other health issues DVT prophylaxis Heparin
--- NOTE | 2020-06-01 11:17 | PM.PNNEP ---
Subjective Subjective Date of Service: 06/01/20 Interval history: Remain symptom freee. Doing well, no new issues Physical Exam Vital Signs: Vital Signs: Last Vital Signs Temp 97.9 F 06/01/20 08:00 Pulse 88 06/01/20 08:00 Resp 18 06/01/20 08:00 BP 134/64 06/01/20 08:00 Pulse Ox 99 06/01/20 08:00 Body Mass Index 33.3 Const: General: no acute distress Orientation/consciousness: patient oriented x3 Neck: Neck: Yes supple Resp: Auscultation: diminished lung sounds Cardio: Rate: regular rate GI: Palpation (GI): Soft to palpation Neuro: General: patient oriented x3 Objective Data Labs CBC & Chem 7: 05/26/20 08:40 05/29/20 06:06 Assessment & Plan Assessment and plan (1) Hypo-osmolar hyponatremia: Problem details: Na improved to 136 now Renal functions stable; Has CKD 3 Continue current supportive care Status: Acute Time Spent With Patient Time: Total time spent is greater than 50% in coordination of care (as documented) at patient's floor/unit and/or counseling patient:
--- NOTE | 2020-06-01 18:13 | PC.NURSE ---
Patient remains in iso unit on RA. Ambulates in room. Vitals stable. Will continue to monitor. Given second covid vaccine in R arm. Tolerated well with no adverse effect.
[2020-06-02] VITALS (9 sets, daily range): BP systolic 120–145; BP diastolic 50–76; PULSE 61–89; RESP 16–19; TEMP 36.2–37.2; O2SAT 96–100
[2020-06-02] MEDS: 0.9 % Sodium Chloride Flush 3 ML SYRINGE IVFLUSH ×3 (00:17→17:14)
[2020-06-02] MEDS: Metoprolol Succinate ER 100 MG TAB.ER.24H PO (05:47)
[2020-06-02] MEDS: Loratadine 10 MG TABLET PO (05:47)
[2020-06-02] MEDS: Magnesium Oxide 400 MG TABLET PO (05:47)
[2020-06-02] MEDS: Aspirin 81 MG TAB.CHEW PO (05:47)
[2020-06-02] MEDS: Metoprolol Succinate ER 25 MG TAB.ER.24H PO (05:54)
--- NOTE | 2020-06-02 08:39 | P.PNIM_ITS ---
Subjective Subjective Date of Service: 06/02/20 Interval History: Seen in f/u for covid. Remains stable. No new issues. Review of Systems Gen: no fever Resp: no sob, no cough CV: no chest, no PARADA, GI: No n/v, no abd pain Neuro: No confusion Physical Exam Vital Signs: Vital Signs: Last Vital Signs Temp 97.8 F 06/02/20 07:58 Pulse 61 06/02/20 07:58 Resp 18 06/02/20 07:58 BP 139/62 06/02/20 07:58 Pulse Ox 98 06/02/20 07:58 Body Mass Index 33.3 Const: Other: General - no acute distress, appears comfortable Cardiovascular - regular rate Lungs - normal respiratory effort, Abdomen - NT Neuro - awake and alert, no focal deficits Cardio: Other: General - no acute distress, appears comfortable Cardiovascular - regular rate Lungs - normal respiratory effort, Abdomen - NT Neuro - awake and alert, no focal deficits Objective Data Current Medications Generic Name Dose Route Start Last Admin Trade Name Freq PRN Reason Stop Dose Admin Acetaminophen 650 mg 05/21/20 18:00 05/28/20 01:57 Acetaminophen 325 Mg Tablet PO 650 mg Q4H PRN Administration Pain, Mild (Pain Scale 1-3) Aspirin 81 mg 05/21/20 18:00 06/02/20 05:47 Aspirin 81 Mg Tab.Chew PO 81 mg DAILY@0600 [facility] Administration Bisacodyl 10 mg 05/21/20 18:00 Bisacodyl 10 Mg Supp.Rect OR DAILY PRN Constipation Guaifenesin/Dextromethorphan 10 ml 05/21/20 18:00 Guaifenesin Dm 100/10/5 Ml 5 Ml Syrup PO QID PRN Cough Heparin Sodium (Porcine) 5,000 unit 05/21/20 17:46 06/02/20 05:04 Heparin Sodium,Porcine 5,000 Unit/Ml Vial SUBCUT Not Given Q12H [facility] Loratadine 10 mg 05/21/20 18:00 06/02/20 05:47 Loratadine 10 Mg Tablet PO 10 mg DAILY@0600 [facility] Administration Magnesium Hydroxide 30 ml 05/21/20 18:00 05/25/20 15:11 Milk Of Magnesia 30 Ml Oral.Susp PO 30 ml DAILY PRN Administration Constipation Magnesium Oxide 400 mg 05/21/20 18:00 06/02/20 05:47 Magnesium Oxide 400 Mg Tablet PO 400 mg DAILY@0600 [facility] Administration Metoprolol Succinate 100 mg 05/21/20 18:00 06/02/20 05:47 Metoprolol Succinate Er 100 Mg Tab.Er.24h PO 100 mg DAILY@0600 [facility] Administration Metoprolol Succinate 25 mg 05/21/20 18:00 06/02/20 05:54 Metoprolol Succinate Er 25 Mg Tab.Er.24h PO 25 mg DAILY@0600 [facility] Administration Miconazole Nitrate 1 appl 05/21/20 18:00 Miconazole 2 % Extra Thick Cr 56.7 Gm Tube TOPICAL DAILY PRN SKIN IRRITATION Protocol Nf Med Aloe Vera 10, 10,000 each 05/21/20 18:00 06/02/20 06:00 000 Mg/Capsule PO 10,000 each DAILY@0600 [facility] Administration Patient Own 1 each 05/21/20 18:00 06/02/20 06:00 Medication (Coq10 PO 1 each 200 Mg) DAILY@0600 [facility] Administration Pt Own Ascorbic Acid 250 each 05/21/20 18:00 06/02/20 06:00 125 Mg Gummy PO 250 each DAILY@0600 [facility] Administration Nf Med Vitamin E 180 1 each 05/21/20 18:00 06/02/20 06:00 Mg PO Not Given DAILY@0600 [facility] Pt Own Fish Oil 1000 1 each 05/21/20 18:00 06/02/20 06:00 Mg PO 1 each DAILY@0600 [facility] Administration Nystatin 1 appl 05/21/20 18:00 Nystatin Powder 15 Gm Bottle TOPICAL BID PRN Itching Protocol Prochlorperazine Maleate 10 mg 05/21/20 18:00 Prochlorperazine Maleate 5 Mg Tablet PO Q6H PRN Nausea and Vomiting Sodium Chloride 3 ml 05/22/20 00:00 06/02/20 07:31 0.9 % Sodium Chloride Flush 3 Ml Syringe IVFLUSH 3 ml QSHIFT [facility] Administration Triamcinolone Acetonide 1 appl 05/21/20 18:00 Triamcinolone Acet 0.1 % Oint 15 Gm Tube TOPICAL BID PRN Itching Protocol Vitamin B Complex/Folic Acid 1 cap 05/21/20 18:00 06/02/20 05:47 B Complex W-C No.20/Folic Acid Capsule PO 1 cap DAILY@0600 [facility] Administration Zinc Oxide 1 appl 05/21/20 18:00 05/30/20 07:49 Zinc Oxide 20% Ointment 28.35 Gm Tube TOPICAL 1 appl DAILY PRN Administration SKIN IRRITATION Protocol Labs CBC & Chem 7: 05/26/20 08:40 05/29/20 06:06 Assessment and Plan (1) Hypo-osmolar hyponatremia: Problem details: Na improved to 136 now Renal functions stable; Has CKD 3 Continue current supportive care Status: Acute Assessment and Plan: 75 year male from the [place] who has tested positive for covid 19 on routine testing and is presently assymptomatic 1. Covid-19--day 112 Patient remains asymptomatic. Did not need remdesivir, Decadron or other form of treatment 2. Hyponatremia. Fluid restriction as needed. Presently not indicated Nephrology input appreciated 3. AFIB controlled, Not on anticoagulation patient unaware why 4. CKD3 slight bump in creatinine to 1.45, follow 5. Morbid obesity weight loss recommended as may affect other health issues DVT prophylaxis Heparin
--- NOTE | 2020-06-02 13:53 | PM.PNNEP ---
Subjective Subjective Date of Service: 06/02/20 Interval history: Remains stable. No new issues. Physical Exam Vital Signs: Vital Signs: Last Vital Signs Temp 97.8 F 06/02/20 11:39 Pulse 65 06/02/20 11:39 Resp 16 06/02/20 11:39 BP 138/50 L 06/02/20 11:39 Pulse Ox 100 06/02/20 11:39 Body Mass Index 33.3 Const: General: No acute distress Neck: Neck: Yes supple Resp: Auscultation: diminished lung sounds Cardio: Rate: regular rate GI: Palpation (GI): Soft to palpation Neuro: General: moves all extremities Objective Data Labs CBC & Chem 7: 05/26/20 08:40 05/29/20 06:06 Assessment & Plan Assessment and plan (1) Hypo-osmolar hyponatremia: Problem details: Na had improved to 136 Renal functions stable; Has CKD 3 Needs repeat blood work Concur with rest of current supportive care Status: Acute Time Spent With Patient Time: Total time spent is greater than 50% in coordination of care (as documented) at patient's floor/unit and/or counseling patient:
[2020-06-02] MEDS: Heparin Sodium,Porcine 5,000 UNIT/ML VIAL 5000 UNIT SUBCUT (17:13)
[2020-06-03] MEDS: 0.9 % Sodium Chloride Flush 3 ML SYRINGE IVFLUSH ×3 (00:13→15:21)
[2020-06-03 04:00] VITALS: BP 139/70; PULSE 56; RESP 18; TEMP 36.6; O2SAT 97
[2020-06-03] MEDS: Loratadine 10 MG TABLET PO (06:26)
[2020-06-03] MEDS: Heparin Sodium,Porcine 5,000 UNIT/ML VIAL 5000 UNIT SUBCUT ×2 (06:26→18:17)
[2020-06-03] MEDS: Magnesium Oxide 400 MG TABLET PO (06:26)
[2020-06-03] MEDS: Aspirin 81 MG TAB.CHEW PO (06:26)
[2020-06-03] MEDS: Metoprolol Succinate ER 100 MG TAB.ER.24H PO (06:26)
[2020-06-03] MEDS: Metoprolol Succinate ER 25 MG TAB.ER.24H PO (06:27)
--- NOTE | 2020-06-03 09:54 | P.PNIM_ITS ---
Subjective Subjective Date of Service: 06/03/20 Interval History: Doing well. No new issues Review of Systems Gen: no fever Resp: no sob, no cough CV: no chest, no PARADA, GI: No n/v, no abd pain Neuro: No confusion Physical Exam Vital Signs: Vital Signs: Last Vital Signs Temp 98 F 06/03/20 04:00 Pulse 56 06/03/20 04:00 Resp 18 06/03/20 04:00 BP 139/70 06/03/20 04:00 Pulse Ox 97 06/03/20 04:00 Body Mass Index 33.3 Const: Other: General - no acute distress, appears comfortable Cardiovascular - regular rate Lungs - normal respiratory effort, Abdomen - NT Neuro - awake and alert, no focal deficits Objective Data Current Medications Generic Name Dose Route Start Last Admin Trade Name Freq PRN Reason Stop Dose Admin Acetaminophen 650 mg 05/21/20 18:00 05/28/20 01:57 Acetaminophen 325 Mg Tablet PO 650 mg Q4H PRN Administration Pain, Mild (Pain Scale 1-3) Aspirin 81 mg 05/21/20 18:00 06/03/20 06:26 Aspirin 81 Mg Tab.Chew PO 81 mg DAILY@0600 [facility] Administration Bisacodyl 10 mg 05/21/20 18:00 Bisacodyl 10 Mg Supp.Rect MI DAILY PRN Constipation Guaifenesin/Dextromethorphan 10 ml 05/21/20 18:00 Guaifenesin Dm 100/10/5 Ml 5 Ml Syrup PO QID PRN Cough Heparin Sodium (Porcine) 5,000 unit 05/21/20 17:46 06/03/20 06:26 Heparin Sodium,Porcine 5,000 Unit/Ml Vial SUBCUT 5,000 unit Q12H [facility] Administration Loratadine 10 mg 05/21/20 18:00 06/03/20 06:26 Loratadine 10 Mg Tablet PO 10 mg DAILY@0600 [facility] Administration Magnesium Hydroxide 30 ml 05/21/20 18:00 05/25/20 15:11 Milk Of Magnesia 30 Ml Oral.Susp PO 30 ml DAILY PRN Administration Constipation Magnesium Oxide 400 mg 05/21/20 18:00 06/03/20 06:26 Magnesium Oxide 400 Mg Tablet PO 400 mg DAILY@0600 [facility] Administration Metoprolol Succinate 100 mg 05/21/20 18:00 06/03/20 06:26 Metoprolol Succinate Er 100 Mg Tab.Er.24h PO 100 mg DAILY@0600 [facility] Administration Metoprolol Succinate 25 mg 05/21/20 18:00 06/03/20 06:27 Metoprolol Succinate Er 25 Mg Tab.Er.24h PO 25 mg DAILY@0600 [facility] Administration Miconazole Nitrate 1 appl 05/21/20 18:00 Miconazole 2 % Extra Thick Cr 56.7 Gm Tube TOPICAL DAILY PRN SKIN IRRITATION Protocol Nf Med Aloe Vera 10, 10,000 each 05/21/20 18:00 06/03/20 06:42 000 Mg/Capsule PO 10,000 each DAILY@0600 [facility] Administration Patient Own 1 each 05/21/20 18:00 06/03/20 06:43 Medication (Coq10 PO 1 each 200 Mg) DAILY@0600 [facility] Administration Pt Own Ascorbic Acid 250 each 05/21/20 18:00 06/03/20 06:43 125 Mg Gummy PO 250 each DAILY@0600 [facility] Administration Nf Med Vitamin E 180 1 each 05/21/20 18:00 06/03/20 06:43 Mg PO Not Given DAILY@0600 [facility] Pt Own Fish Oil 1000 1 each 05/21/20 18:00 06/03/20 06:43 Mg PO 1 each DAILY@0600 [facility] Administration Nystatin 1 appl 05/21/20 18:00 Nystatin Powder 15 Gm Bottle TOPICAL BID PRN Itching Protocol Prochlorperazine Maleate 10 mg 05/21/20 18:00 Prochlorperazine Maleate 5 Mg Tablet PO Q6H PRN Nausea and Vomiting Sodium Chloride 3 ml 05/22/20 00:00 06/03/20 07:48 0.9 % Sodium Chloride Flush 3 Ml Syringe IVFLUSH 3 ml QSWYFT [facility] Administration Triamcinolone Acetonide 1 appl 05/21/20 18:00 Triamcinolone Acet 0.1 % Oint 15 Gm Tube TOPICAL BID PRN Itching Protocol Vitamin B Complex/Folic Acid 1 cap 05/21/20 18:00 06/03/20 06:26 B Complex W-C No.20/Folic Acid Capsule PO 1 cap DAILY@0600 [facility] Administration Zinc Oxide 1 appl 05/21/20 18:00 05/30/20 07:49 Zinc Oxide 20% Ointment 28.35 Gm Tube TOPICAL 1 appl DAILY PRN Administration SKIN IRRITATION Protocol Labs CBC & Chem 7: 05/26/20 08:40 05/29/20 06:06 Assessment and Plan (1) Hypo-osmolar hyponatremia: Status: Acute Assessment and Plan: 75 year male from the [place] who has tested positive for covid 19 on routine testing and is presently assymptomatic 1. Covid-19--day 112 Patient remains asymptomatic. Did not need remdesivir, Decadron or other form of treatment 2. Hyponatremia. Fluid restriction as needed. Repeat labs today 3. AFIB controlled, Not on anticoagulation patient unaware why 4. CKD3 slight bump in creatinine to 1.45, follow 5. Morbid obesity weight loss recommended as may affect other health issues DVT prophylaxis Heparin
[2020-06-03 11:08] LABS: Anion Gap 13 (12-20); Blood Urea Nitrogen 37 mg/dL (9-16); Calcium 8.7 mg/dL (8.4-10.2); Carbon Dioxide 25 mmol/L (22-29); Chloride 102 mmol/L (96-108); Creatinine Clr Calc Pharmacy 48.5; Estimated Glomerular Filt Rate 42; Glucose Random 97 mg/dL (60-115); Potassium 4.1 mmol/l (3.3-5.1); Sodium 136 mmol/L (135-145)
[2020-06-03 11:50] VITALS: PULSE 99; RESP 20; TEMP 37.1; O2SAT 98
[2020-06-03 15:54] VITALS: BP 143/53; PULSE 70; RESP 18; TEMP 36.2; O2SAT 97
[2020-06-03 20:00] VITALS: BP 119/51; PULSE 59; RESP 18; TEMP 36.7
[2020-06-03 23:02] VITALS: BP 140/65; PULSE 59; RESP 15; TEMP 36.8; O2SAT 97
[2020-06-04] VITALS (7 sets, daily range): BP systolic 128–145; BP diastolic 67–86; PULSE 53–68; RESP 16–20; TEMP 36.1–36.9; O2SAT 98–100
[2020-06-04] MEDS: 0.9 % Sodium Chloride Flush 3 ML SYRINGE IVFLUSH ×4 (00:01→23:33)
[2020-06-04] MEDS: Heparin Sodium,Porcine 5,000 UNIT/ML VIAL 5000 UNIT SUBCUT (06:12)
[2020-06-04] MEDS: Magnesium Oxide 400 MG TABLET PO (06:13)
[2020-06-04] MEDS: Loratadine 10 MG TABLET PO (06:13)
[2020-06-04] MEDS: Aspirin 81 MG TAB.CHEW PO (06:13)
[2020-06-04] MEDS: Metoprolol Succinate ER 100 MG TAB.ER.24H PO (06:13)
[2020-06-04] MEDS: Metoprolol Succinate ER 25 MG TAB.ER.24H PO (06:13)
--- NOTE | 2020-06-04 08:18 | P.PNNP_ITS ---
Subjective Subjective Date of Service: 06/04/20 Interval history: Reviewed course and labs Hyponatremia has resolved Pt with DAREK and rising creat to 1.6 Reviewed medications Physical Exam Vital Signs: Vital Signs: Last Vital Signs Temp 97 F 06/04/20 04:00 Pulse 64 06/04/20 06:13 Resp 16 06/04/20 04:00 BP 128/68 06/04/20 06:13 Pulse Ox 98 06/04/20 04:00 Body Mass Index 33.3 Const: Other: General - no acute distress, appears comfortable Cardiovascular - regular rate Lungs - normal respiratory effort, Abdomen - NT Neuro - awake and alert, no focal deficits General: cooperative, no acute distress and awake; No acute distress Orientation/consciousness: patient o riented x3 Neck: Neck: Yes supple Resp: Auscultation: diminished lung sounds Cardio: Other: General - no acute distress, appears comfortable Cardiovascular - regular rate Lungs - normal respiratory effort, Abdomen - NT Neuro - awake and alert, no focal deficits Rate: regular rate Heart sounds: no gallops GI: Palpation (GI): Soft to palpation Neuro: General: patient oriented x3 and moves all extremities Gait exam (Neuro): not ataxic Objective Data Labs CBC & Chem 7: 05/26/20 08:40 06/03/20 10:23 Labs: Laboratory Results - last 24 hr 06/03/20 10:23 Sodium 136 Potassium 4.1 Chloride 102 Carbon Dioxide 25 Anion Gap 13 BUN 37 H Creatinine 1.62 H Estim Creat Clear Calc 48.5 Estimated GFR 42 Random Glucose 97 Calcium 8.7 Assessment & Plan Assessment and plan (1) Hypo-osmolar hyponatremia: Problem details: Pt with hyponatremia now resolved Status: Acute (2) Acute kidney injury: Problem details: DAREK may be prerenal in this setting Recommend: IV normal saline at 100 cc/hr today and f/u creat tomorrow; check FeNA Status: Acute Time Spent With Patient Time: Total time spent is greater than 50% in coordination of care (as documented) at patient's floor/unit and/or counseling patient:
[2020-06-04 09:36] LABS: Creatinine Urine 22.15 mg/dL
--- NOTE | 2020-06-04 11:02 | HO.PM.IMPN ---
Subjective Subjective Date of Service: 06/04/20 Interval History: Doing well. No new issues, looking foward to going back soon Review of Systems Gen: no fever Resp: no sob, no cough CV: no chest, no PARADA, GI: No n/v, no abd pain Neuro: No confusion Physical Exam Vital Signs: Vital Signs: Last Vital Signs Temp 98.5 F 06/04/20 08:00 Pulse 64 06/04/20 06:13 Resp 20 06/04/20 08:00 BP 145/67 H 06/04/20 08:00 Pulse Ox 98 06/04/20 08:00 Body Mass Index 33.3 Const: Other: General - no acute distress, appears comfortable Cardiovascular - regular rate Lungs - normal respiratory effort, Abdomen - NT Neuro - awake and alert, no focal deficits Objective Data Current Medications Generic Name Dose Route Start Last Admin Trade Name Freq PRN Reason Stop Dose Admin Acetaminophen 650 mg 05/21/20 18:00 05/28/20 01:57 Acetaminophen 325 Mg Tablet PO 650 mg Q4H PRN Administration Pain, Mild (Pain Scale 1-3) Aspirin 81 mg 05/21/20 18:00 06/04/20 06:13 Aspirin 81 Mg Tab.Chew PO 81 mg DAILY@0600 [facility] Administration Bisacodyl 10 mg 05/21/20 18:00 Bisacodyl 10 Mg Supp.Rect GA DAILY PRN Constipation Guaifenesin/Dextromethorphan 10 ml 05/21/20 18:00 Guaifenesin Dm 100/10/5 Ml 5 Ml Syrup PO QID PRN Cough Heparin Sodium (Porcine) 5,000 unit 05/21/20 17:46 06/04/20 06:12 Heparin Sodium,Porcine 5,000 Unit/Ml Vial SUBCUT 5,000 unit Q12H [facility] Administration Loratadine 10 mg 05/21/20 18:00 06/04/20 06:13 Loratadine 10 Mg Tablet PO 10 mg DAILY@0600 [facility] Administration Magnesium Hydroxide 30 ml 05/21/20 18:00 05/25/20 15:11 Milk Of Magnesia 30 Ml Oral.Susp PO 30 ml DAILY PRN Administration Constipation Magnesium Oxide 400 mg 05/21/20 18:00 06/04/20 06:13 Magnesium Oxide 400 Mg Tablet PO 400 mg DAILY@0600 [facility] Administration Metoprolol Succinate 100 mg 05/21/20 18:00 06/04/20 06:13 Metoprolol Succinate Er 100 Mg Tab.Er.24h PO 100 mg DAILY@0600 [facility] Administration Metoprolol Succinate 25 mg 05/21/20 18:00 06/04/20 06:13 Metoprolol Succinate Er 25 Mg Tab.Er.24h PO 25 mg DAILY@0600 [facility] Administration Miconazole Nitrate 1 appl 05/21/20 18:00 Miconazole 2 % Extra Thick Cr 56.7 Gm Tube TOPICAL DAILY PRN SKIN IRRITATION Protocol Nf Med Aloe Vera 10, 10,000 each 05/21/20 18:00 06/04/20 06:14 000 Mg/Capsule PO 10,000 each DAILY@0600 [facility] Administration Patient Own 1 each 05/21/20 18:00 06/04/20 06:14 Medication (Coq10 PO 1 each 200 Mg) DAILY@0600 [facility] Administration Pt Own Ascorbic Acid 250 each 05/21/20 18:00 06/04/20 06:14 125 Mg Gummy PO 250 each DAILY@0600 [facility] Administration Nf Med Vitamin E 180 1 each 05/21/20 18:00 06/04/20 06:14 Mg PO 1 each DAILY@0600 [facility] Administration Pt Own Fish Oil 1000 1 each 05/21/20 18:00 06/04/20 06:14 Mg PO 1 each DAILY@0600 [facility] Administration Nystatin 1 appl 05/21/20 18:00 Nystatin Powder 15 Gm Bottle TOPICAL BID PRN Itching Protocol Prochlorperazine Maleate 10 mg 05/21/20 18:00 Prochlorperazine Maleate 5 Mg Tablet PO Q6H PRN Nausea and Vomiting Sodium Chloride 3 ml 05/22/20 00:00 06/04/20 08:16 0.9 % Sodium Chloride Flush 3 Ml Syringe IVFLUSH 3 ml QSHIFT [facility] Administration Triamcinolone Acetonide 1 appl 05/21/20 18:00 Triamcinolone Acet 0.1 % Oint 15 Gm Tube TOPICAL BID PRN Itching Protocol Vitamin B Complex/Folic Acid 1 cap 05/21/20 18:00 06/04/20 06:13 B Complex W-C No.20/Folic Acid Capsule PO 1 cap DAILY@0600 [facility] Administration Zinc Oxide 1 appl 05/21/20 18:00 05/30/20 07:49 Zinc Oxide 20% Ointment 28.35 Gm Tube TOPICAL 1 appl DAILY PRN Administration SKIN IRRITATION Protocol Labs CBC & Chem 7: 05/26/20 08:40 06/03/20 10:23 Assessment and Plan (1) Hypo-osmolar hyponatremia: Problem details: Pt with hyponatremia now resolved Status: Acute (2) Acute kidney injury: Problem details: DAREK may be prerenal in this setting Recommend: IV normal saline at 100 cc/hr today and f/u creat tomorrow; check FeNA Status: Acute Assessment and Plan: 75 year male from the [place] who has tested positive for covid 19 on routine testing and is presently assymptomatic 1. Covid-19--day 14, so done with qurantine Patient remains asymptomatic. Did not need remdesivir, Decadron or other form of treatment 2. Hyponatremia. Fluid restriction as needed. last sodium 136 on 06/03 3. AFIB controlled, Not on anticoagulation patient unaware why 4. CKD3 with DAREK, Nephro recommends NS 100 cc/hr and recheck labs tomorrow 5. Morbid obesity weight loss recommended as may affect other health issues DVT prophylaxis Heparin
[2020-06-05 04:00] VITALS: BP 115/52; PULSE 57; RESP 16; TEMP 36.4; O2SAT 99
[2020-06-05] MEDS: Loratadine 10 MG TABLET PO (05:42)
[2020-06-05] MEDS: Magnesium Oxide 400 MG TABLET PO (05:43)
[2020-06-05] MEDS: Aspirin 81 MG TAB.CHEW PO (05:43)
[2020-06-05 06:13] VITALS: BP 128/74; PULSE 54
[2020-06-05 07:11] LABS: Anion Gap 14 (12-20); Blood Urea Nitrogen 29 mg/dL (9-16); Calcium 8.7 mg/dL (8.4-10.2); Carbon Dioxide 23 mmol/L (22-29); Chloride 106 mmol/L (96-108); Creatinine Clr Calc Pharmacy 57.4; Estimated Glomerular Filt Rate 51; Glucose Random 90 mg/dL (60-115); Potassium 4.4 mmol/l (3.3-5.1); Sodium 139 mmol/L (135-145)
[2020-06-05 07:46] VITALS: BP 145/61; PULSE 67; RESP 18; TEMP 36.4; O2SAT 99
--- NOTE | 2020-06-05 08:11 | MHC.CM.PN ---
dc plan is for patient to return to [facility] when cleared for return. cm to cont. to follow.
--- NOTE | 2020-06-05 08:56 | HO.PM.IMPN ---
Subjective Subjective Date of Service: 06/05/20 Interval History: Doing well. No new issues, looking foward to going back soon. completed IVF overnight Review of Systems Gen: no fever Resp: no sob, no cough CV: no chest, no PARADA, GI: No n/v, no abd pain Neuro: No confusion Physical Exam Vital Signs: Vital Signs: Last Vital Signs Temp 97.6 F 06/05/20 07:46 Pulse 67 06/05/20 07:46 Resp 18 06/05/20 07:46 BP 145/61 H 06/05/20 07:46 Pulse Ox 99 06/05/20 07:46 Body Mass Index 33.3 Const: Other: General - no acute distress, appears comfortable Cardiovascular - regular rate Lungs - normal respiratory effort, Abdomen - NT Neuro - awake and alert, no focal deficits Objective Data Current Medications Generic Name Dose Route Start Last Admin Trade Name Freq PRN Reason Stop Dose Admin Acetaminophen 650 mg 05/21/20 18:00 05/28/20 01:57 Acetaminophen 325 Mg Tablet PO 650 mg Q4H PRN Administration Pain, Mild (Pain Scale 1-3) Aspirin 81 mg 05/21/20 18:00 06/05/20 05:43 Aspirin 81 Mg Tab.Chew PO 81 mg DAILY@0600 [facility] Administration Bisacodyl 10 mg 05/21/20 18:00 Bisacodyl 10 Mg Supp.Rect IN DAILY PRN Constipation Guaifenesin/Dextromethorphan 10 ml 05/21/20 18:00 Guaifenesin Dm 100/10/5 Ml 5 Ml Syrup PO QID PRN Cough Heparin Sodium (Porcine) 5,000 unit 05/21/20 17:46 06/05/20 06:29 Heparin Sodium,Porcine 5,000 Unit/Ml Vial SUBCUT Not Given Q12H [facility] Loratadine 10 mg 05/21/20 18:00 06/05/20 05:42 Loratadine 10 Mg Tablet PO 10 mg DAILY@0600 [facility] Administration Magnesium Hydroxide 30 ml 05/21/20 18:00 05/25/20 15:11 Milk Of Magnesia 30 Ml Oral.Susp PO 30 ml DAILY PRN Administration Constipation Magnesium Oxide 400 mg 05/21/20 18:00 06/05/20 05:43 Magnesium Oxide 400 Mg Tablet PO 400 mg DAILY@0600 [facility] Administration Metoprolol Succinate 100 mg 05/21/20 18:00 01/11/21 06:13 Metoprolol Succinate Er 100 Mg Tab.Er.24h PO Not Given DAILY@0600 [facility] Metoprolol Succinate 25 mg 05/21/20 18:00 06/05/20 06:13 Metoprolol Succinate Er 25 Mg Tab.Er.24h PO Not Given DAILY@0600 [facility] Miconazole Nitrate 1 appl 05/21/20 18:00 Miconazole 2 % Extra Thick Cr 56.7 Gm Tube TOPICAL DAILY PRN SKIN IRRITATION Protocol Nf Med Aloe Vera 10, 10,000 each 05/21/20 18:00 06/05/20 06:28 000 Mg/Capsule PO 10,000 each DAILY@0600 [facility] Administration Patient Own 1 each 05/21/20 18:00 06/05/20 06:28 Medication (Coq10 PO 1 each 200 Mg) DAILY@0600 [facility] Administration Pt Own Ascorbic Acid 250 each 05/21/20 18:00 06/05/20 06:28 125 Mg Gummy PO 250 each DAILY@0600 [facility] Administration Nf Med Vitamin E 180 1 each 05/21/20 18:00 06/05/20 06:28 Mg PO Not Given DAILY@0600 [facility] Pt Own Fish Oil 1000 1 each 05/21/20 18:00 06/05/20 06:27 Mg PO 1 each DAILY@0600 [facility] Administration Nystatin 1 appl 05/21/20 18:00 Nystatin Powder 15 Gm Bottle TOPICAL BID PRN Itching Protocol Prochlorperazine Maleate 10 mg 05/21/20 18:00 Prochlorperazine Maleate 5 Mg Tablet PO Q6H PRN Nausea and Vomiting Sodium Chloride 3 ml 05/22/20 00:00 06/04/20 23:33 0.9 % Sodium Chloride Flush 3 Ml Syringe IVFLUSH 3 ml QSHIFT [facility] Administration Triamcinolone Acetonide 1 appl 05/21/20 18:00 Triamcinolone Acet 0.1 % Oint 15 Gm Tube TOPICAL BID PRN Itching Protocol Vitamin B Complex/Folic Acid 1 cap 05/21/20 18:00 06/05/20 05:41 B Complex W-C No.20/Folic Acid Capsule PO 1 cap DAILY@0600 [facility] Administration Zinc Oxide 1 appl 05/21/20 18:00 05/30/20 07:49 Zinc Oxide 20% Ointment 28.35 Gm Tube TOPICAL 1 appl DAILY PRN Administration SKIN IRRITATION Protocol Labs CBC & Chem 7: 05/26/20 08:40 06/05/20 06:07 Assessment and Plan (1) Hypo-osmolar hyponatremia: Problem details: Pt with hyponatremia now resolved Status: Acute (2) Acute kidney injury: Problem details: DAREK may be prerenal in this setting Recommend: IV normal saline at 100 cc/hr today and f/u creat tomorrow; check FeNA Status: Acute Assessment and Plan: 75 year male from the [place] who has tested positive for covid 19 on routine testing and is presently assymptomatic 1. Covid-19--day 14, so done with qurantine Patient remains asymptomatic. Did not need remdesivir, Decadron or other form of treatment 2. Hyponatremia. Fluid restriction as needed. last sodium 136 on 06/03 3. AFIB controlled, Not on anticoagulation patient unaware why 4. CKD3 with DAREK, got IVF overnight and Cr back to baseline at 1.37 5. Morbid obesity weight loss recommended as may affect other health issues DVT prophylaxis Heparin Dispo: maybe today
[2020-06-05] MEDS: 0.9 % Sodium Chloride Flush 3 ML SYRINGE IVFLUSH ×2 (09:07→14:52)
[2020-06-05 11:28] VITALS: BP 134/61; PULSE 75; RESP 16; TEMP 36.3; O2SAT 100
--- NOTE | 2020-06-05 14:55 | PM.PNNEP ---
Subjective Subjective Date of Service: 06/05/20 Interval history: Seen and examined. Events nooted No SOB Physical Exam Vital Signs: Vital Signs: Last Vital Signs Temp 97.4 F 06/05/20 11:28 Pulse 75 06/05/20 11:28 Resp 16 06/05/20 11:28 BP 134/61 06/05/20 11:28 Pulse Ox 100 06/05/20 11:28 Body Mass Index 33.3 Const: Other: General - no acute distress, appears comfortable Cardiovascular - regular rate Lungs - normal respiratory effort, Abdomen - NT Neuro - awake and alert, no focal deficits General: cooperative, no acute distress and awake; No acute distress Orientation/consciousness: patient oriented x3 Neck: Neck: Yes supple Resp: Auscultation: diminished lung sounds Cardio: Other: General - no acute distress, appears comfortable Cardiovascular - regular rate Lungs - normal respiratory effort, Abdomen - NT Neuro - awake and alert, no focal deficits Rate: regular rate Heart sounds: no gallops GI: Palpation (GI): Soft to palpation Neuro: General: patient oriented x3 and moves all extremities Gait exam (Neuro): not ataxic Objective Data Labs CBC & Chem 7: 05/26/20 08:40 06/05/20 06:07 Labs: Laboratory Results - last 24 hr 06/05/20 06:07 Sodium 139 Potassium 4.4 Chloride 106 Carbon Dioxide 23 Anion Gap 14 BUN 29 H Creatinine 1.37 Estim Creat Clear Calc 57.4 Estimated GFR 51 Random Glucose 90 Calcium 8.7 Assessment & Plan Assessment and plan (1) Hypo-osmolar hyponatremia: Status: Acute (2) Acute kidney injury: Status: Acute Assessment and Plan: 1. DAREK: resolved after IVf 2. CKD 3 3. COVID pos but no signif lunfg invovlement REC: ok to d/c and track reanl func as oupt; avoid dehydration, No NSAIDS Time Spent With Patient Time: Total time spent is greater than 50% in coordination of care (as documented) at patient's floor/unit and/or counseling patient:
--- NOTE | 2020-06-05 17:55 | P.DS_ITS ---
DS: Providers Provider Date of Service: 06/05/20 Date of admission: 05/21/20 16:43 Primary care physician: Unknown Physician Consults: 05/26/20 11:09 Consult to Nephrology Routine Consulting Provider: Dominick Nunez Reason for consultation: hyponatremia DS: Diagnosis Discharge Diagnosis (1) Hypo-osmolar hyponatremia: Status: Acute (2) Acute kidney injury: Status: Acute (3) COVID-19: Status: Acute DS: Medications Discharge Medications Home Medications: Previous Rx's Medication Instructions Recorded acetaminophen 650 mg PO Q4H PRN #30 tab 06/05/20 aspirin 81 mg PO DAILY@0600 #30 tab 06/05/20 bisacodyl [Gentle Laxative 10 mg [place] DAILY PRN #30 ea 06/05/20 (bisacodyl)] dextromethorphan-guaifenesin 10 ml PO QID PRN #200 ml 06/05/20 loratadine 10 mg PO DAILY@0600 #30 tab 06/05/20 magnesium hydroxide [Milk of 30 ml PO DAILY PRN #300 ml 06/05/20 Magnesia] magnesium oxide 400 mg PO DAILY@0600 #30 tab 06/05/20 metoprolol succinate 25 mg PO DAILY@0600 #30 tab 06/05/20 metoprolol succinate 100 mg PO DAILY@0600 #30 tab 06/05/20 miconazole nitrate [Inzo 1 appl TOPICAL DAILY PRN #1 g 06/05/20 Antifungal] nystatin 1 appl TOPICAL BID PRN #30 g 06/05/20 prochlorperazine maleate 10 mg PO Q6H PRN #30 tab 06/05/20 triamcinolone acetonide 1 appl TOPICAL BID PRN #1 g 06/05/20 zinc oxide 1 appl TOPICAL DAILY PRN #30 g 06/05/20 DS: Summary Hospital Course Hospital Course: Patient was admitted to due covid 19 infection and did remarkably well without exhibiting symptom. His stays was complicated by mild hyponatremia and acute on chronic renal insuficiency, the former treated with fluid restriction and the latter managed with IVF with complete resolution. He did not required any covid specific treatment and at day 125 today still assymptomatic and is being discharged back to SNF and to usual medication and supplement. He should be considered non-contagious at this time per CDC guideline. Time Spent with Patient Time attestation: Total time spent providing and/or coordinating discharge services: Discharge coordination time: Greater than 30 minutes Physical Exam Vital Signs: Vital Signs: Last Vital Signs Temp 97.4 F 06/05/20 11:28 Pulse 75 06/05/20 11:28 Resp 16 06/05/20 11:28 BP 134/61 06/05/20 11:28 Pulse Ox 100 06/05/20 11:28 Body Mass Index 33.3 Const: Other: General - no acute distress, appears comfortable Cardiovascular - regular rate Lungs - normal respiratory effort, Abdomen - NT Neuro - awake and alert, no focal deficits DS: Data Data Completed and Pending Labs on day of discharge: Laboratory Tests 05/21/20 05/21/20 05/22/20 18:27 18:27 12:45 WBC 4.5 L RBC 4.11 L Hgb 12.1 L Hct 35.0 L MCV 85.2 MCH 29.4 MCHC 34.6 RDW 13.1 Plt Count 156 L MPV 9.2 L Absolute Nucleated RBC 0.000 Nucleated RBC % (auto) 0.0 Sodium 132 L Potassium 4.5 Chloride 101 Carbon Dioxide 21 L Anion Gap 15 BUN 34 H Creatinine 1.77 H Estim Creat Clear Calc TNP Estimated GFR 38 Random Glucose 131 H D Osmolality Calcium 8.2 L D Lactate Dehydrogenase 197 C-Reactive Protein 2.83 H Urine Osmolality U Random Total Protein Ur Random Sodium Urine Creatinine COVID-19 (FAY) Positive A COVID-19 Clin Com See Note SARS-CoV-2 IgG Ab 05/22/20 05/24/20 05/24/20 13:14 07:14 07:14 WBC 4.4 L RBC 3.82 L Hgb 11.2 L Hct 31.5 L MCV 82.5 MCH 29.3 MCHC 35.6 RDW 12.6 Plt Count 139 L MPV 9.1 L Absolute Nucleated RBC 0.000 Nucleated RBC % (auto) 0.0 Sodium 127 L Potassium 3.8 Chloride 100 Carbon Dioxide 19 L Anion Gap 12 BUN 23 H Creatinine 1.29 Estim Creat Clear Calc 61.0 Estimated GFR 54 Random Glucose 96 Osmolality Calcium 7.9 L Lactate Dehydrogenase C-Reactive Protein Urine Osmolality U Random Total Protein Ur Random Sodium Urine Creatinine COVID-19 (FAY) COVID-19 Clin Com SARS-CoV-2 IgG Ab Positive 05/25/20 05/25/20 05/25/20 06:15 06:15 11:20 WBC RBC Hgb Hct MCV MCH MCHC RDW Plt Count MPV Absolute Nucleated RBC Nucleated RBC % (auto) Sodium 126 L Potassium 4.3 Chloride 98 Carbon Dioxide 20 L Anion Gap 12 BUN 23 H Creatinine 1.29 Estim Creat Clear Calc 61.0 Estimated GFR 54 Random Glucose 100 Osmolality 267 L Calcium 8.1 L Lactate Dehydrogenase C-Reactive Protein Urine Osmolality 162 L U Random Total Protein Ur Random Sodium Urine Creatinine COVID-19 (FAY) COVID-19 [facility] Com SARS-CoV-2 IgG Ab 05/25/20 05/26/20 05/26/20 11:20 08:40 08:40 WBC 6.5 RBC 4.17 L Hgb 12.4 L Hct 34.9 L MCV 83.7 MCH 29.7 MCHC 35.5 RDW 12.8 Plt Count 187 D MPV 9.0 L Absolute Nucleated RBC 0.000 Nucleated RBC % (auto) 0.0 Sodium 124 L Potassium 4.7 Chloride 94 L Carbon Dioxide 21 L Anion Gap 14 BUN 20 H Creatinine 1.32 Estim Creat Clear Calc 59.6 Estimated GFR 53 Random Glucose 96 Osmolality Calcium 8.4 Lactate Dehydrogenase C-Reactive Protein 0.57 H Urine Osmolality U Random Total Protein Ur Random Sodium < 20.0 Urine Creatinine COVID-19 (FAY) COVID-19 [facility] Com SARS-CoV-2 IgG Ab 05/27/20 05/28/20 05/28/20 09:22 08:16 16:00 WBC RBC Hgb Hct MCV MCH MCHC RDW Plt Count MPV Absolute Nucleated RBC Nucleated RBC % (auto) Sodium 128 L 135 Potassium 4.9 4.6 Chloride 98 103 Carbon Dioxide 19 L 25 Anion Gap 16 12 BUN 21 H 24 H Creatinine 1.31 1.45 H Estim Creat Clear Calc 60.0 54.2 Estimated GFR 53 48 Random Glucose 100 92 Osmolality Calcium 8.4 8.5 Lactate Dehydrogenase C-Reactive Protein Urine Osmolality U Random Total Protein < 7 Ur Random Sodium 48.0 Urine Creatinine 29.07 COVID-19 (FAY) COVID-19 Clin Com SARS-CoV-2 IgG Ab 05/29/20 06/03/20 06/04/20 06:06 10:23 09:00 WBC RBC Hgb Hct MCV MCH MCHC RDW Plt Count MPV Absolute Nucleated RBC Nucleated RBC % (auto) Sodium 136 136 Potassium 4.6 4.1 Chloride 104 102 Carbon Dioxide 23 25 Anion Gap 14 13 BUN 29 H 37 H Creatinine 1.45 H 1.62 H Estim Creat Clear Calc 54.2 48.5 Estimated GFR 48 42 Random Glucose 91 97 Osmolality Calcium 8.4 8.7 Lactate Dehydrogenase C-Reactive Protein Urine Osmolality U Random Total Protein Ur Random Sodium 35.0 Urine Creatinine 22.15 COVID-19 (FAY) COVID-19 Clin Com SARS-CoV-2 IgG Ab 06/05/20 06:07 WBC RBC Hgb Hct MCV MCH MCHC RDW Plt Count MPV Absolute Nucleated RBC Nucleated RBC % (auto) Sodium 139 Potassium 4.4 Chloride 106 Carbon Dioxide 23 Anion Gap 14 BUN 29 H Creatinine 1.37 Estim Creat Clear Calc 57.4 Estimated GFR 51 Random Glucose 90 Osmolality Calcium 8.7 Lactate Dehydrogenase C-Reactive Protein Urine Osmolality U Random Total Protein Ur Random Sodium Urine Creatinine COVID-19 (FAY) COVID-19 Clin Com SARS-CoV-2 IgG Ab Discharge Plan Discharge Anticipated Discharge Date/Time: 06/05/20 15:10 Patient Disposition: Xfer SNF Referrals: Physician,Unknown [Primary Care Provider] - Discharge Medications: New acetaminophen 325 mg Tablet 650 mg PO Q4H PRN (Reason: Pain, Mild (Pain Scale 1-3)) Qty: 30 RF: 0 miconazole nitrate [Inzo Antifungal] 2 % Cream 1 appl topical DAILY PRN (Reason: SKIN IRRITATION) Qty: 1 RF: 0 prochlorperazine maleate 5 mg Tablet 10 mg PO Q6H PRN (Reason: Nausea And Vomiting) Qty: 30 RF: 0 metoprolol succinate 100 mg Tablet Extended Release 24 Hr 100 mg PO DAILY@0600 Qty: 30 RF: 0 dextromethorphan-guaifenesin 10-100 mg/5 mL Syrup 10 ml PO QID PRN (Reason: Cough) Qty: 200 RF: 0 magnesium oxide 400 mg (241.3 mg magnesium) Tablet 400 mg PO DAILY@0600 Qty: 30 RF: 0 magnesium hydroxide [Milk of Magnesia] 400 mg/5 mL Suspension 30 ml PO DAILY PRN (Reason: Constipation) Qty: 300 RF: 0 bisacodyl [Gentle Laxative (bisacodyl)] 10 mg Suppository 10 mg MS DAILY PRN (Reason: Constipation) Qty: 30 RF: 0 triamcinolone acetonide 0.1 % Ointment 1 appl topical BID PRN (Reason: Itching) Qty: 1 RF: 0 aspirin 81 mg Tablet,Chewable 81 mg PO DAILY@0600 Qty: 30 RF: 0 metoprolol succinate 25 mg Tablet Extended Release 24 Hr 25 mg PO DAILY@0600 Qty: 30 RF: 0 nystatin 100,000 unit/gram Powder 1 appl topical BID PRN (Reason: Itching) Qty: 30 RF: 0 loratadine 10 mg Tablet 10 mg PO DAILY@0600 Qty: 30 RF: 0 zinc oxide 20 % Ointment 1 appl topical DAILY PRN (Reason: SKIN IRRITATION) Qty: 30 RF: 0 Discharge Orders: Discharge Order (Routine); Ordered 06/05/20 Ordered By: Hossein Garcia Diet: advance to usual diet Activity on Discharge: As tolerated Discharge Date/Time: 06/05/20 16:43 Care Plan Goals: full recovery from covid Health Concerns: ob Plan of Treatment: Return to SNF
[2020-06-08 08:50] LABS: Anion Gap 11 (12-20); Blood Urea Nitrogen 29 mg/dL (9-16); Calcium 8.5 mg/dL (8.4-10.2); Carbon Dioxide 26 mmol/L (22-29); Chloride 105 mmol/L (96-108); Creatinine Clr Calc Pharmacy 49.5; Estimated Glomerular Filt Rate 43; Glucose Random 100 mg/dL (60-115); Potassium 4.4 mmol/l (3.3-5.1); Sodium 138 mmol/L (135-145)
== END 2020-06-05 16:43 | disposition skilled nursing facility (03) ==
PROVIDERS: Family Medicine; Internal Medicine; Internal Medicine Hypertension Specialist; Internal Medicine Nephrology; Student in an Organized Health Care Education/Training Program; Admitting Provider Internal Medicine; Visit Provider Internal Medicine
DX: E87.1 Hypo-osmolality and hyponatremia (principal); N17.9 Acute kidney failure, unspecified; U07.1 COVID-19; E66.01 Morbid (severe) obesity due to excess calories; I48.20 Chronic atrial fibrillation, unspecified; N18.30 Chronic kidney disease, stage 3 unspecified; R60.9 Edema, unspecified; L30.9 Dermatitis, unspecified; Z68.33 Body mass index [BMI] 33.0-33.9, adult; Z79.899 Other long term (current) drug therapy
CPT/HCPCS: 36415; 71045; 80048; 83615; 83930; 83935; 84156; 84300; 85027; 86140; 86769; 87635; 99219; 99232

== ENCOUNTER 2020-06-19 05:33 | Outpatient (REF) | payer MEDICARE, MEDICAID, SELFPAY ==
[2020-06-19 07:29] LABS: Vitamin D 25-OH Total 54.8 ng/mL (>30)
== END 2020-06-19 05:34 | disposition home or self-care (01) ==
LOC: HO.HSH2W 05:33
PROVIDERS: Visit Provider Internal Medicine
DX: E55.9 Vitamin D deficiency, unspecified (principal)
CPT/HCPCS: 36415; 82306

== ENCOUNTER 2020-06-20 05:42 | Outpatient (REF) | payer MEDICARE, MEDICAID, SELFPAY ==
[2020-06-20 07:57] LABS: MANUAL DIFF FLAG NO
[2020-06-20 08:01] LABS: Basophils Percent Auto 0.7 % (0-2); Eosinophils Absolute Auto 0.3 X10*3/uL (0.0-0.4); Eosinophils Percent Auto 5.6 % (0-4); Hemoglobin 11.2 g/dl (14.0-18.0); Lymphocytes Absolute Auto 1.3 X10*3/uL (1.2-4.9); Lymphocytes Percent Auto 29.5 % (20-40); Mean Corpuscular HGB Conc 32.9 g/dl (31.0-36.0); Mean Corpuscular Hemoglobin 29.1 pg (27.0-33.0); Mean Corpuscular Volume 88.3 fL (80-98); Mean Platelet Volume 9.6 fL (9.4-12.4); Monocytes Absolute Auto 0.5 X10*3/uL (0.1-1.2); Monocytes Percent Auto 11.7 % (2-11); Neutrophils Absolute Auto 2.3 X10*3/uL (2.0-8.3); Neutrophils Percent Auto 52.5 % (45-73); Platelet Count 142 X10*3/uL (160-400); Red Blood Count 3.85 X10*6/uL (4.60-5.80); White Blood Count 4.4 X10*3/uL (4.8-10.8)
[2020-06-20 08:15] LABS: Estimated Average Glucose 100 mg/dL; Hemoglobin A1C 98.5745 umol/L; Hemoglobin A1c % 5.1 %
[2020-06-20 08:44] LABS: Alanine Aminotransferase 15 U/L (0-40); Albumin Level 3.5 g/dL (3.5-5.0); Alkaline Phosphatase 52 U/L (39-117); Anion Gap 12 (12-20); Aspartate Amino Transferase 18 U/L (5-37); Bilirubin Total 0.7 mg/dL (0.0-1.0); Blood Urea Nitrogen 29 mg/dL (9-16); Calcium 8.3 mg/dL (8.4-10.2); Carbon Dioxide 22 mmol/L (22-29); Chloride 108 mmol/L (96-108); Cholesterol 148 mg/dL; Estimated Glomerular Filt Rate 43; Glucose Fasting 105 mg/dL (60-99); HDL Cholesterol 41 mg/dL; LDL Cholesterol Calculated 91 mg/dl; Potassium 4.2 mmol/l (3.3-5.1); Sodium 138 mmol/L (135-145); Total Protein 5.1 g/dL (6.5-8.0); Triglycerides 81 mg/dL
[2020-06-20 08:56] LABS: Thyroid Stimulating Hormone 2.18 uIU/mL (0.32-4.0)
== END 2020-06-20 05:43 | disposition home or self-care (01) ==
LOC: HO.HSH2W 05:42
PROVIDERS: Visit Provider Internal Medicine
DX: N18.4 Chronic kidney disease, stage 4 (severe) (principal); D63.1 Anemia in chronic kidney disease; E87.1 Hypo-osmolality and hyponatremia
CPT/HCPCS: 36415; 80053; 80061; 83036; 84443; 85025

== ENCOUNTER 2020-06-30 06:09 | Outpatient (REF) | payer MEDICARE, MEDICAID, SELFPAY ==
[2020-06-30 07:37] LABS: Basophils Percent Auto 0.9 % (0-2); Hemoglobin 12.2 g/dl (14.0-18.0); MANUAL DIFF FLAG SCAN; PLT CLUMP 1; Red Cell Distribution Width 13.8 % (11.0-16.0); SCAN SMEAR FLAG 1
[2020-06-30 07:39] LABS: Eosinophils Absolute Auto 0.4 X10*3/uL (0.0-0.4); Hematocrit 36.7 % (42-52); Lymphocytes Absolute Auto 1.4 X10*3/uL (1.2-4.9); Lymphocytes Percent Auto 31.7 % (20-40); Mean Corpuscular HGB Conc 33.2 g/dl (31.0-36.0); Mean Corpuscular Volume 87.2 fL (80-98); Mean Platelet Volume 9.4 fL (9.4-12.4); Monocytes Absolute Auto 0.5 X10*3/uL (0.1-1.2); Monocytes Percent Auto 11.2 % (2-11); Neutrophils Absolute Auto 2.1 X10*3/uL (2.0-8.3); Neutrophils Percent Auto 48.2 % (45-73); Platelet Count 137 X10*3/uL (160-400); Red Blood Count 4.21 X10*6/uL (4.60-5.80); White Blood Count 4.4 X10*3/uL (4.8-10.8)
[2020-06-30 08:15] LABS: Alanine Aminotransferase 12 U/L (0-40); Albumin Level 3.6 g/dL (3.5-5.0); Alkaline Phosphatase 53 U/L (39-117); Anion Gap 9 (12-20); Aspartate Amino Transferase 19 U/L (5-37); Bilirubin Total 0.6 mg/dL (0.0-1.0); Blood Urea Nitrogen 32 mg/dL (9-16); Calcium 8.5 mg/dL (8.4-10.2); Carbon Dioxide 27 mmol/L (22-29); Chloride 105 mmol/L (96-108); Estimated Glomerular Filt Rate 40; Glucose Fasting 100 mg/dL (60-99); Potassium 4.4 mmol/L (3.3-5.1); Sodium 137 mmol/L (135-145); Total Protein 5.5 g/dL (6.5-8.0)
== END 2020-06-30 06:10 | disposition home or self-care (01) ==
LOC: HO.HSH2W 06:09
PROVIDERS: Visit Provider Internal Medicine
DX: N19 Unspecified kidney failure (principal)
CPT/HCPCS: 36415; 80053; 84443; 85025

== ENCOUNTER 2020-08-02 19:47 | Outpatient (REF) | payer MEDICARE, MEDICAID, SELFPAY ==
[2020-08-02 20:43] LABS: Creatinine Urine 33.07 mg/dL; Microalbumin Urine < 5.0 mg/L
== END 2020-08-02 19:48 | disposition home or self-care (01) ==
LOC: HO.HSH2W 19:47
PROVIDERS: Visit Provider Internal Medicine
DX: N18.4 Chronic kidney disease, stage 4 (severe) (principal)
CPT/HCPCS: 82043

== ENCOUNTER 2020-08-03 05:59 | Outpatient (REF) | payer MEDICARE, SELFPAY ==
[2020-08-03 09:16] LABS: Anion Gap 11 (12-20); Blood Urea Nitrogen 36 mg/dL (9-16); Calcium 8.3 mg/dL (8.4-10.2); Carbon Dioxide 26 mmol/L (22-29); Chloride 106 mmol/L (96-108); Estimated Glomerular Filt Rate 40; Glucose Fasting 111 mg/dL (60-99); Phosphorus 3.8 mg/dL (2.7-4.5); Potassium 4.3 mmol/L (3.3-5.1); Sodium 139 mmol/L (135-145); Uric Acid 7.1 mg/dL (3.4-7.0)
[2020-08-03 09:32] LABS: Vitamin D 25-OH Total 41.6 ng/mL (>30)
[2020-08-05 10:31] LABS: Calcium (PTHI) 8.8 mg/dL (8.6-10.3); PTHI 106 pg/mL (14-64)
== END 2020-08-03 06:00 | disposition home or self-care (01) ==
LOC: HO.HSH2W 05:59
PROVIDERS: Visit Provider Internal Medicine
DX: D64.89 Other specified anemias (principal); N18.4 Chronic kidney disease, stage 4 (severe)
CPT/HCPCS: 36415; 80048; 82306; 83970; 84100; 84550

== ENCOUNTER 2020-08-24 11:37 | Outpatient (REF) | payer MEDICARE, MEDICAID, SELFPAY ==
[2020-08-26 11:38] LABS: Scabies Exam NEGATIVE
== END 2020-08-24 11:38 | disposition home or self-care (01) ==
LOC: HO.HSH2W 11:37
PROVIDERS: Visit Provider Internal Medicine
DX: R21 Rash and other nonspecific skin eruption (principal)
CPT/HCPCS: 87220

== ENCOUNTER 2020-09-29 06:46 | Outpatient (REF) | payer MEDICARE, SELFPAY ==
[2020-09-29 09:06] LABS: Vitamin D 25-OH Total 52.3 ng/mL (>30)
== END 2020-09-29 06:47 | disposition home or self-care (01) ==
LOC: HO.HSH2W 06:46
PROVIDERS: Visit Provider Internal Medicine
DX: E55.9 Vitamin D deficiency, unspecified (principal)
CPT/HCPCS: 36415; 82306

== ENCOUNTER 2020-10-31 05:32 | Outpatient (REF) | payer MEDICARE, MEDICAID, SELFPAY ==
[2020-10-31 06:41] LABS: MANUAL DIFF FLAG NO
[2020-10-31 06:50] LABS: Eosinophils Absolute Auto 0.3 X10*3/uL (0.0-0.4); Eosinophils Percent Auto 6.5 % (0-4); Hematocrit 38.9 % (42-52); Hemoglobin 12.8 g/dl (14.0-18.0); Imm Gran Abs Auto 0.01 X10*3/uL (0.00-0.03); Imm Gran Pct Auto 0.3 % (0.0-0.4); Lymphocytes Absolute Auto 1.2 X10*3/uL (1.2-4.9); Lymphocytes Percent Auto 30.7 % (20-40); Mean Corpuscular HGB Conc 32.9 g/dl (31.0-36.0); Mean Platelet Volume 9.9 fL (9.4-12.4); Monocytes Absolute Auto 0.5 X10*3/uL (0.1-1.2); Monocytes Percent Auto 11.6 % (2-11); Neutrophils Absolute Auto 1.9 X10*3/uL (2.0-8.3); Neutrophils Percent Auto 49.9 % (45-73); Platelet Count 129 X10*3/uL (160-400); Red Blood Count 4.42 X10*6/uL (4.60-5.80); Red Cell Distribution Width 13.5 % (11.0-16.0); White Blood Count 3.9 X10*3/uL (4.8-10.8)
[2020-10-31 07:17] LABS: Alanine Aminotransferase 14 U/L (0-40); Alkaline Phosphatase 57 U/L (39-117); Anion Gap 11 (12-20); Aspartate Amino Transferase 20 U/L (5-37); Bilirubin Total 0.9 mg/dL (0.0-1.0); Blood Urea Nitrogen 31 mg/dL (9-16); Calcium 9.2 mg/dL (8.4-10.2); Carbon Dioxide 24 mmol/L (22-29); Chloride 108 mmol/L (96-108); Estimated Glomerular Filt Rate 41; Glucose Random 97 mg/dL (60-115); Iron 70 mcg/dL (45-160); Lactate Dehydrogenase 185 U/L (118-273); Percent Iron Saturation 24 % (15-50); Potassium 4.4 mmol/L (3.3-5.1); Sodium 139 mmol/L (135-145); Total Iron Binding Capacity 290 mcg/dL (228-428); Total Protein 5.8 g/dL (6.5-8.0); Unsaturated Iron Binding 220 ug/dL
[2020-10-31 07:41] LABS: Ferritin 459 ng/mL (20-250); Thyroid Stimulating Hormone 1.86 uIU/mL (0.32-4.0); Vitamin D 25-OH Total 42.6 ng/mL (>30)
[2020-10-31 07:48] LABS: Folate 8.9 ng/mL (> or = 4.0); Vitamin B12 241 pg/mL (200-900)
[2020-11-02 13:06] LABS: Calcium (PTHI) 8.9 mg/dL (8.6-10.3); PTHI 83 pg/mL (14-64)
== END 2020-10-31 05:33 | disposition home or self-care (01) ==
LOC: HO.HSH4E 05:32
PROVIDERS: Visit Provider Internal Medicine
DX: C85.90 Non-Hodgkin lymphoma, unspecified, unspecified site (principal); N18.9 Chronic kidney disease, unspecified; D64.9 Anemia, unspecified
CPT/HCPCS: 36415; 80053; 82306; 82607; 82728; 82746; 83540; 83615; 83970; 84100; 84443; 85025

== ENCOUNTER 2020-12-08 06:46 | Outpatient (REF) | payer MEDICARE, MEDICAID, SELFPAY ==
[2020-12-08 08:39] LABS: MANUAL DIFF FLAG NO
[2020-12-08 08:47] LABS: Basophils Percent Auto 0.7 % (0-2); Eosinophils Absolute Auto 0.2 X10*3/uL (0.0-0.4); Eosinophils Percent Auto 5.3 % (0-4); Hematocrit 35.4 % (42-52); Hemoglobin 11.6 g/dl (14.0-18.0); Imm Gran Abs Auto 0.01 X10*3/uL (0.00-0.03); Imm Gran Pct Auto 0.2 % (0.0-0.4); Lymphocytes Percent Auto 23.9 % (20-40); Mean Corpuscular HGB Conc 32.8 g/dl (31.0-36.0); Mean Corpuscular Hemoglobin 29.4 pg (27.0-33.0); Mean Corpuscular Volume 89.8 fL (80-98); Mean Platelet Volume 9.8 fL (9.4-12.4); Monocytes Absolute Auto 0.5 X10*3/uL (0.1-1.2); Monocytes Percent Auto 11.7 % (2-11); Neutrophils Absolute Auto 2.4 X10*3/uL (2.0-8.3); Neutrophils Percent Auto 58.2 % (45-73); Platelet Count 135 X10*3/uL (160-400); Red Blood Count 3.94 X10*6/uL (4.60-5.80); Red Cell Distribution Width 13.9 % (11.0-16.0); White Blood Count 4.2 X10*3/uL (4.8-10.8)
[2020-12-08 09:44] LABS: Alanine Aminotransferase 15 U/L (0-40); Albumin Level 3.7 g/dL (3.5-5.0); Alkaline Phosphatase 58 U/L (39-117); Anion Gap 11 (12-20); Aspartate Amino Transferase 18 U/L (5-37); Bilirubin Total 0.6 mg/dL (0.0-1.0); Blood Urea Nitrogen 35 mg/dL (9-16); Calcium 8.9 mg/dL (8.4-10.2); Carbon Dioxide 25 mmol/L (22-29); Chloride 111 mmol/L (96-108); Estimated Glomerular Filt Rate 39; Glucose Fasting 102 mg/dL (60-99); Lactate Dehydrogenase 170 U/L (118-273); Sodium 142 mmol/L (135-145); Total Protein 5.4 g/dL (6.5-8.0)
[2020-12-08 14:32] LABS: Erythrocyte Sedimentation Rate 7 MM/HR (0-15)
== END 2020-12-08 06:47 | disposition home or self-care (01) ==
LOC: HO.HSH4E 06:46
PROVIDERS: Visit Provider Internal Medicine
DX: N18.9 Chronic kidney disease, unspecified (principal); D63.1 Anemia in chronic kidney disease; C85.90 Non-Hodgkin lymphoma, unspecified, unspecified site
CPT/HCPCS: 36415; 80053; 83615; 85025; 85652

== ENCOUNTER 2021-02-07 05:38 | Outpatient (REF) | payer MEDICARE, MEDICAID, SELFPAY ==
[2021-02-07 08:25] LABS: Anion Gap 11 (12-20); Blood Urea Nitrogen 40 mg/dL (9-16); Carbon Dioxide 25 mmol/L (22-29); Chloride 109 mmol/L (96-108); Estimated Glomerular Filt Rate 42; Glucose Fasting 94 mg/dL (60-99); Potassium 4.9 mmol/L (3.3-5.1); Sodium 140 mmol/L (135-145)
== END 2021-02-07 05:39 | disposition home or self-care (01) ==
LOC: HO.HSH4E 05:38
PROVIDERS: Visit Provider Internal Medicine
DX: N18.9 Chronic kidney disease, unspecified (principal)
CPT/HCPCS: 36415; 80051; 82565; 82947; 84520

== ENCOUNTER 2021-03-15 06:26 | Outpatient (REF) | payer MEDICARE, MEDICAID, SELFPAY ==
[2021-03-15 08:08] LABS: Alanine Aminotransferase 17 U/L (0-40); Albumin Level 3.8 g/dL (3.5-5.0); Alkaline Phosphatase 78 U/L (39-117); Anion Gap 12 (12-20); Aspartate Amino Transferase 17 U/L (5-37); Bilirubin Total 0.6 mg/dL (0.0-1.0); Blood Urea Nitrogen 40 mg/dL (9-16); Carbon Dioxide 25 mmol/L (22-29); Chloride 107 mmol/L (96-108); Estimated Glomerular Filt Rate 40; Glucose Fasting 94 mg/dL (60-99); Potassium 4.7 mmol/L (3.3-5.1); Sodium 139 mmol/L (135-145); Total Protein 5.8 g/dL (6.5-8.0)
[2021-03-15 08:47] LABS: Creatinine Urine 30.32 mg/dL; Microalbumin Urine < 5.0 mg/L
== END 2021-03-15 06:27 | disposition home or self-care (01) ==
LOC: HO.HSH4E 06:26
PROVIDERS: Visit Provider Internal Medicine Endocrinology, Diabetes & Metabolism
DX: N18.9 Chronic kidney disease, unspecified (principal)
CPT/HCPCS: 36415; 80053; 82043; 82306

== ENCOUNTER 2021-04-02 16:09 | Outpatient (REF) | payer MEDICARE, MEDICAID, SELFPAY | END 2021-04-02 16:10 | disposition home or self-care (01) | LOC: HO.HSH4E 16:09 | PROVIDERS: Visit Provider Internal Medicine | DX: L30.9 Dermatitis, unspecified (principal) | CPT/HCPCS: 87220 ==

== ENCOUNTER 2021-07-03 06:06 | Outpatient (REF) | payer MEDICARE, MEDICAID, SELFPAY ==
[2021-07-03 07:37] LABS: MANUAL DIFF FLAG NO
[2021-07-03 07:39] LABS: Eosinophils Absolute Auto 0.2 X10*3/uL (0.0-0.4); Eosinophils Percent Auto 5.5 % (0-4); Hematocrit 40.6 % (42.0-52.0); Hemoglobin 13.4 g/dl (14.0-18.0); Imm Gran Abs Auto 0.01 X10*3/uL (0.00-0.03); Imm Gran Pct Auto 0.2 % (0.0-0.4); Lymphocytes Percent Auto 23.9 % (20-40); Mean Corpuscular Hemoglobin 28.5 pg (27.0-33.0); Mean Corpuscular Volume 86.4 fL (80.0-98.0); Mean Platelet Volume 9.2 fL (9.4-12.4); Monocytes Absolute Auto 0.5 X10*3/uL (0.1-1.2); Monocytes Percent Auto 12.4 % (2-11); Neutrophils Absolute Auto 2.4 x10*3/uL (2.0-8.3); Platelet Count 126 X10*3/uL (160-400); Red Cell Distribution Width 13.9 % (11.0-16.0); White Blood Count 4.2 X10*3/uL (4.8-10.8)
[2021-07-03 07:54] LABS: Alanine Aminotransferase 17 U/L (0-40); Albumin Level 4.1 g/dL (3.5-5.0); Alkaline Phosphatase 62 U/L (39-117); Anion Gap 11 (12-20); Aspartate Amino Transferase 21 U/L (5-37); Bilirubin Total 0.6 mg/dL (0.0-1.0); Blood Urea Nitrogen 44 mg/dL (9-16); Calcium 9.3 mg/dL (8.4-10.2); Carbon Dioxide 25 mmol/L (22-29); Chloride 107 mmol/L (96-108); Estimated Glomerular Filt Rate 34; Glucose Fasting 92 mg/dL (60-99); Lactate Dehydrogenase 197 U/L (118-273); Potassium 4.4 mmol/L (3.3-5.1); Sodium 139 mmol/L (135-145); Total Protein 6.3 g/dL (6.5-8.0)
[2021-07-03 08:18] LABS: Erythrocyte Sedimentation Rate 5 MM/HR (0-15)
== END 2021-07-03 06:07 | disposition home or self-care (01) ==
LOC: HO.HSH4E 06:06
PROVIDERS: Visit Provider Internal Medicine Endocrinology, Diabetes & Metabolism
DX: N18.9 Chronic kidney disease, unspecified (principal); I89.0 Lymphedema, not elsewhere classified
CPT/HCPCS: 36415; 80053; 83615; 85025; 85652

== ENCOUNTER 2021-07-23 06:31 | Outpatient (REF) | payer MEDICARE, MEDICAID, SELFPAY ==
[2021-07-23 07:36] LABS: MANUAL DIFF FLAG NO
[2021-07-23 07:40] LABS: Eosinophils Absolute Auto 0.3 X10*3/uL (0.0-0.4); Eosinophils Percent Auto 6.2 % (0-4); Hematocrit 39.5 % (42.0-52.0); Hemoglobin 12.7 g/dl (14.0-18.0); Imm Gran Abs Auto 0.01 X10*3/uL (0.00-0.03); Imm Gran Pct Auto 0.2 % (0.0-0.4); Lymphocytes Absolute Auto 1.2 X10*3/uL (1.2-4.9); Lymphocytes Percent Auto 27.8 % (20-40); Mean Corpuscular HGB Conc 32.2 g/dl (31.0-36.0); Mean Corpuscular Hemoglobin 28.1 pg (27.0-33.0); Mean Corpuscular Volume 87.4 fL (80.0-98.0); Mean Platelet Volume 9.5 fL (9.4-12.4); Monocytes Absolute Auto 0.6 X10*3/uL (0.1-1.2); Monocytes Percent Auto 13.1 % (2-11); Neutrophils Absolute Auto 2.2 x10*3/uL (2.0-8.3); Neutrophils Percent Auto 51.7 % (45-73); Platelet Count 127 X10*3/uL (160-400); Red Blood Count 4.52 X10*6/uL (4.60-5.80); Red Cell Distribution Width 13.7 % (11.0-16.0); White Blood Count 4.2 X10*3/uL (4.8-10.8)
[2021-07-23 07:56] LABS: Alanine Aminotransferase 18 U/L (0-40); Albumin Level 3.7 g/dL (3.5-5.0); Alkaline Phosphatase 62 U/L (39-117); Anion Gap 10 (12-20); Aspartate Amino Transferase 20 U/L (5-37); Bilirubin Total 0.4 mg/dL (0.0-1.0); Blood Urea Nitrogen 37 mg/dL (9-16); Calcium 9.2 mg/dL (8.4-10.2); Carbon Dioxide 28 mmol/L (22-29); Chloride 105 mmol/L (96-108); Estimated Glomerular Filt Rate 39; Glucose Random 107 mg/dL (60-115); Iron 55 mcg/dL (45-160); Percent Iron Saturation 19 % (15-50); Phosphorus 3.8 mg/dL (2.7-4.5); Potassium 4.2 mmol/L (3.3-5.1); Sodium 139 mmol/L (135-145); Total Iron Binding Capacity 290 mcg/dL (228-428); Total Protein 5.7 g/dL (6.5-8.0); Unsaturated Iron Binding 235 ug/dL
[2021-07-23 08:05] LABS: Microalbumin Urine < 5.0 mg/L
[2021-07-23 08:18] LABS: Ferritin 228 ng/mL (20-250); Vitamin D 25-OH Total 34.2 ng/mL (>30)
[2021-07-24 16:31] LABS: PTHI 113 pg/mL (14-64)
== END 2021-07-23 06:32 | disposition home or self-care (01) ==
LOC: HO.HSH4E 06:31
PROVIDERS: Visit Provider Internal Medicine
DX: N18.9 Chronic kidney disease, unspecified (principal); D63.1 Anemia in chronic kidney disease
CPT/HCPCS: 36415; 80053; 82043; 82306; 82728; 83540; 83970; 84100; 85025

== ENCOUNTER 2021-10-24 05:55 | Outpatient (REF) | payer MEDICARE, MEDICAID, SELFPAY ==
[2021-10-24 07:03] LABS: MANUAL DIFF FLAG NO
[2021-10-24 07:19] LABS: Basophils Absolute Auto 0.1 X10*3/uL (0.0-0.2); Eosinophils Absolute Auto 0.3 X10*3/uL (0.0-0.4); Eosinophils Percent Auto 6.8 % (0-4); Hematocrit 38.3 % (42.0-52.0); Hemoglobin 12.5 g/dl (14.0-18.0); Lymphocytes Absolute Auto 1.4 X10*3/uL (1.2-4.9); Mean Corpuscular HGB Conc 32.6 g/dl (31.0-36.0); Mean Corpuscular Hemoglobin 28.7 pg (27.0-33.0); Mean Corpuscular Volume 87.8 fL (80.0-98.0); Mean Platelet Volume 9.4 fL (9.4-12.4); Monocytes Absolute Auto 0.6 X10*3/uL (0.1-1.2); Monocytes Percent Auto 12.7 % (2-11); Neutrophils Absolute Auto 2.5 x10*3/uL (2.0-8.3); Neutrophils Percent Auto 51.5 % (45-73); Platelet Count 139 X10*3/uL (160-400); Red Blood Count 4.36 X10*6/uL (4.60-5.80); Red Cell Distribution Width 14.2 % (11.0-16.0); White Blood Count 4.8 X10*3/uL (4.8-10.8)
[2021-10-24 07:27] LABS: Alanine Aminotransferase 23 U/L (0-40); Albumin Level 3.6 g/dL (3.5-5.0); Alkaline Phosphatase 64 U/L (39-117); Anion Gap 11 (12-20); Aspartate Amino Transferase 19 U/L (5-37); Bilirubin Total 0.2 mg/dL (0.0-1.0); Blood Urea Nitrogen 42 mg/dL (9-16); Carbon Dioxide 24 mmol/L (22-29); Chloride 109 mmol/L (96-108); Cholesterol 154 mg/dL; Estimated Glomerular Filt Rate 38; Glucose Fasting 97 mg/dL (60-99); HDL Cholesterol 40 mg/dL; Iron 68 mcg/dL (45-160); LDL Cholesterol Calculated 103 mg/dl; Magnesium 2.2 mg/dL (1.6-2.6); Percent Iron Saturation 22 % (15-50); Potassium 4.4 mmol/L (3.3-5.1); Sodium 140 mmol/L (135-145); Total Iron Binding Capacity 312 mcg/dL (228-428); Total Protein 5.7 g/dL (6.5-8.0); Triglycerides 56 mg/dL; Unsaturated Iron Binding 244 ug/dL
[2021-10-24 07:36] LABS: Creatinine Urine 61.07 mg/dL; Microalbumin Urine < 5.0 mg/L
[2021-10-24 07:48] LABS: Ferritin 279 ng/mL (20-250)
== END 2021-10-24 05:56 | disposition home or self-care (01) ==
LOC: HO.HSH4E 05:55
PROVIDERS: Visit Provider Internal Medicine
DX: N18.9 Chronic kidney disease, unspecified (principal); D64.9 Anemia, unspecified
CPT/HCPCS: 36415; 80053; 80061; 82043; 82728; 83540; 83735; 85025

== ENCOUNTER 2021-12-28 14:38 | Outpatient (REF) | payer MEDICARE, MEDICAID, SELFPAY ==
[2021-12-28 08:24] LABS: MANUAL DIFF FLAG NO
[2021-12-28 08:30] LABS: Basophils Percent Auto 0.7 % (0-2); Eosinophils Absolute Auto 0.2 X10*3/uL (0.0-0.4); Eosinophils Percent Auto 5.7 % (0-4); Hematocrit 39.5 % (42.0-52.0); Imm Gran Abs Auto 0.01 X10*3/uL (0.00-0.03); Imm Gran Pct Auto 0.2 % (0.0-0.4); Lymphocytes Absolute Auto 1.1 X10*3/uL (1.2-4.9); Lymphocytes Percent Auto 27.2 % (20-40); Mean Corpuscular HGB Conc 32.9 g/dl (31.0-36.0); Mean Corpuscular Hemoglobin 28.4 pg (27.0-33.0); Mean Corpuscular Volume 86.2 fL (80.0-98.0); Mean Platelet Volume 9.9 fL (9.4-12.4); Monocytes Absolute Auto 0.5 X10*3/uL (0.1-1.2); Monocytes Percent Auto 13.3 % (2-11); Neutrophils Absolute Auto 2.1 x10*3/uL (2.0-8.3); Neutrophils Percent Auto 52.9 % (45-73); Platelet Count 138 X10*3/uL (160-400); Red Blood Count 4.58 X10*6/uL (4.60-5.80); Red Cell Distribution Width 14.1 % (11.0-16.0); White Blood Count 4.1 X10*3/uL (4.8-10.8)
[2021-12-28 09:05] LABS: Alanine Aminotransferase 18 U/L (0-40); Alkaline Phosphatase 54 U/L (39-117); Anion Gap 13 (12-20); Aspartate Amino Transferase 20 U/L (5-37); Bilirubin Total 0.7 mg/dL (0.0-1.0); Blood Urea Nitrogen 43 mg/dL (9-16); Calcium 8.7 mg/dL (8.4-10.2); Carbon Dioxide 25 mmol/L (22-29); Chloride 105 mmol/L (96-108); Estimated Glomerular Filt Rate 39; Glucose Fasting 105 mg/dL (60-99); Lactate Dehydrogenase 205 U/L (118-273); Sodium 139 mmol/L (135-145)
[2021-12-28 09:15] LABS: Erythrocyte Sedimentation Rate 7 MM/HR (0-15)
== END 2021-12-28 14:39 | disposition home or self-care (01) ==
LOC: HO.HSH4E 14:38
PROVIDERS: Visit Provider Internal Medicine
DX: C85.10 Unspecified B-cell lymphoma, unspecified site (principal)
CPT/HCPCS: 36415; 80053; 83615; 85025; 85652

== ENCOUNTER 2022-02-11 12:34 | Outpatient (REF) | payer MEDICARE, MEDICAID, SELFPAY ==
[2022-02-11 13:11] LABS: Basophils Percent Auto 0.2 % (0-2); Eosinophils Percent Auto 0.2 % (0-4); Hematocrit 40.5 % (42.0-52.0); Hemoglobin 13.1 g/dl (14.0-18.0); Imm Gran Abs Auto 0.07 X10*3/uL (0.00-0.03); Imm Gran Pct Auto 0.5 % (0.0-0.4); Lymphocytes Absolute Auto 0.2 X10*3/uL (1.2-4.9); Lymphocytes Percent Auto 1.8 % (20-40); MANUAL DIFF FLAG SCAN; Mean Corpuscular HGB Conc 32.3 g/dl (31.0-36.0); Mean Corpuscular Hemoglobin 27.7 pg (27.0-33.0); Mean Corpuscular Volume 85.6 fL (80.0-98.0); Mean Platelet Volume 9.3 fL (9.4-12.4); Monocytes Absolute Auto 0.9 X10*3/uL (0.1-1.2); Monocytes Percent Auto 6.6 % (2-11); Neutrophils Absolute Auto 11.9 x10*3/uL (2.0-8.3); Neutrophils Percent Auto 90.7 % (45-73); Platelet Count 133 X10*3/uL (160-400); Red Blood Count 4.73 X10*6/uL (4.60-5.80); Red Cell Distribution Width 14.3 % (11.0-16.0); SCAN SMEAR FLAG 1; White Blood Count 13.1 X10*3/uL (4.8-10.8)
[2022-02-11 13:36] LABS: Anion Gap 16 (12-20); Blood Urea Nitrogen 42 mg/dL (9-16); Calcium 9.3 mg/dL (8.4-10.2); Carbon Dioxide 23 mmol/L (22-29); Chloride 104 mmol/L (96-108); Estimated Glomerular Filt Rate 39; Glucose Random 115 mg/dL (60-115); Potassium 4.6 mmol/L (3.3-5.1); SLIDE REVIEW VERIFIED; Sodium 138 mmol/L (135-145)
[2022-02-11 13:40] LABS: B Type Natriuretic Peptide 152 pg/mL (<100)
== END 2022-02-11 12:35 | disposition home or self-care (01) ==
LOC: HO.HSH4E 12:34
PROVIDERS: Visit Provider Internal Medicine
DX: Z13.89 Encounter for screening for other disorder (principal)
CPT/HCPCS: 36415; 80048; 83880; 85025

== ENCOUNTER 2022-02-11 15:56 | Observation (INO) | payer MEDICARE, MEDICAID, SELFPAY ==
--- NOTE | ~2022-02-11 | XR_ITS ---
EXAMINATION: XR CHEST CLINICAL INFORMATION: Shortness of breath COMPARISON: Chest x-ray 05/26/2020 TECHNIQUE: Frontal view of the chest was obtained. FINDINGS: No airspace consolidation. No pleural effusion or pneumothorax. Unchanged cardiomediastinal silhouette. No cardiomegaly. No evidence of pulmonary edema. Slightly prominent central pulmonary vascular markings, unchanged. No acute osseous injury. Advanced bilateral shoulder joint arthropathy noted. XR/XR chest 1V IMPRESSION: No acute pulmonary process.
--- NOTE | ~2022-02-11 | CT_ITS ---
EXAMINATION: CT ANGIOGRAM OF THE CHEST WITH AND WITHOUT CONTRAST (CT PULMONARY ANGIOGRAM FOR PE) CLINICAL INFORMATION: Reason for Exam sob, elev d-dimer COMPARISON: None TECHNIQUE: Prior to contrast administration, noncontrast localization images were obtained. Subsequently, multidetector volumetric imaging was performed from the thoracic inlet to below the diaphragms following the administration of 100 mL Omnipaque 350 intravenous contrast. No contrast reaction reported Sagittal, coronal, and MIP oblique sagittal reformatted images were obtained on the CT workstation, uploaded to PACS, and reviewed. This CT examination was performed using dose optimization techniques as appropriate, variously including the following: *Automated exposure control *Adjustment of mA and/or kV according to patient size (this includes techniques or standardized protocols for targeted exams where dose is matched to indication/reason for exam; i.e. extremities or head) *Use of iterative reconstruction technique Total exam dose-length product 261 mGy-cm FINDINGS: QUALITY OF STUDY/CONTRAST BOLUS: Suboptimal for detection of segmental pulmonary emboli particularly on the right lung due to motion artifact and suboptimal contrast opacification. PULMONARY ARTERIES: No central pulmonary embolus. No obvious/large segmental pulmonary embolus-limited assessment. THORACIC AORTA: Ascending thoracic aorta is ectatic measuring 3.9 cm in diameter. No dissection. LUNG: Extensive respiratory motion artifact. Mild dependent basilar atelectasis. Mosaic attenuation the lungs suggesting mild air trapping and adjacent atelectasis. No airspace consolidation. Central airways are grossly clear. PLEURA: No pleural effusion or pneumothorax. MEDIASTINUM: Mildly prominent left atrium appeared no pericardial effusion. Mild LAD and right coronary artery vascular calcification. No mediastinal or hilar lymphadenopathy. No evidence of septal bowing or right heart strain. CHEST WALL/AXILLA: No axillary or internal mammary lymphadenopathy. OSSEOUS STRUCTURES: No acute or suspicious osseous abnormality. Chronic mild height loss of several lower thoracic vertebral bodies and multilevel degenerative disc disease. Advanced bilateral shoulder joint arthropathy. No acute fracture or suspicious osseous lesion. UPPER ABDOMEN: Unremarkable. No reflux of contrast into the hepatic veins to suggest elevated right heart pressures. CT/CT angio chest PE protocol IMPRESSION: 1. Limited examination for detection of pulmonary emboli. No central or obvious/large segmental pulmonary embolus. 2. Mild atelectasis. No consolidation or effusions. VTE: Negative, limited as above
--- NOTE | ~2022-02-11 | US_ITS ---
EXAMINATION: US VENOUS ULTRASOUND WITH DOPPLER LOWER EXTREMITY, LEFT CLINICAL INFORMATION: Left leg pain and edema. COMPARISON: None TECHNIQUE: Ultrasound of the deep veins is performed from the hip to the calf with compression sonography and color and pulse Doppler assessment. Spectral analysis with color-flow imaging is performed. FINDINGS: There is normal venous compression and respiratory variation and augmented flow. The visualized common femoral vein, superficial femoral vein, profunda femoral vein, popliteal vein, and the trifurcation region shows no evidence of deep venous thrombosis. Somewhat limited visualization of the distal femoral vein due to body habitus. Anechoic popliteal cyst measuring approximately 6.7 x 2.5 x 2.9 cm in size. If the patient's symptoms persist, followup ultrasound in 5 days 7 days might be of value to exclude proximal propagation from a non-visualized calf vein. US/US venous duplex LE IMPRESSION: 1. No DVT demonstrated in the left lower extremity. 2. Popliteal cyst measuring 6.7 x 2.5 x 2.9 cm in size.
--- NOTE | 2022-02-11 16:20 | ECG_ITS ---
Test Reason : SOB Blood Pressure : / mmHG Vent. Rate : 075 BPM Atrial Rate : 000 BPM P-R Int : 000 ms QRS Dur : 134 ms QT Int : 420 ms P-R-T Axes : 000 -56 -33 degrees QTc Int : 469 ms Poor data quality, interpretation may be adversely affected Atrial fibrillation Right bundle branch block Left anterior fascicular block Bifascicular block Minimal voltage criteria for LVH, may be normal variant ( R in aVL ) Septal infarct , age undetermined Abnormal ECG No previous ECGs available Referred By: Jayce Diaz Electronically Signed By:GUY LONGORIA
--- NOTE | 2022-02-11 16:25 | ED_ITS ---
HPI - General Adult General Chief complaint: Dyspnea Stated complaint: DIFF BREATHING Time Seen by Provider: 02/11/22 16:10 Source: patient, EMS, RN notes reviewed and old records reviewed Mode of arrival: EMS Limitations: other ( patient with dementia is a poor historian) History of Present Illness HPI narrative: patient with increasing shortness of breath. He resides at the [facility] and was sent in because of the above symptoms. Lab work drawn today at the [facility] showed a relative leukocytosis at 13.1. Patient has a history of leukopenia with a neck average white count of 4. He has been coughing. Unclear if there sputum production. Unclear if there is a fever. Has a history of renal insufficiency with a creatinine baseline of 1.7. There remains 1.7 from lab work earlier today. Patient denies chest pain. He does complain of left leg pain in the calf area. He is typically non ambulatory recently using wheelchair to get around. Related Data Previous Rx's Medication Instructions Recorded acetaminophen 325 mg tablet 650 mg PO Q4H PRN Pain, Mild (Pain 06/05/20 Scale 1-3) #30 tabs aspirin 81 mg chewable tablet 81 mg PO DAILY@0600 #30 tabs 06/05/20 bisacodyl 10 mg rectal suppository 10 mg MT DAILY PRN Constipation 06/05/20 (Gentle Laxative (bisacodyl)) #30 ea dextromethorphan-guaifenesin 10 10 ml PO QID PRN Cough #200 mL 06/05/20 mg-100 mg/5 mL oral syrup loratadine 10 mg tablet 10 mg PO DAILY@0600 #30 tabs 06/05/20 magnesium hydroxide 400 mg/5 mL 30 ml PO DAILY PRN Constipation 06/05/20 oral suspension (Milk of Magnesia) #300 mL magnesium oxide 400 mg (241.3 mg 400 mg PO DAILY@0600 #30 tabs 06/05/20 magnesium) tablet metoprolol succinate 100 mg 100 mg PO DAILY@0600 #30 tabs 06/05/20 tablet,extended release 24 hr metoprolol succinate 25 mg 25 mg PO DAILY@0600 #30 tabs 06/05/20 tablet,extended release 24 hr miconazole nitrate 2 % topical 1 appl topical DAILY PRN SKIN 06/05/20 cream (Inzo Antifungal) IRRITATION #1 g nystatin 100,000 unit/gram topical 1 appl topical BID PRN Itching #30 06/05/20 powder grams prochlorperazine maleate 5 mg 10 mg PO Q6H PRN Nausea And 06/05/20 tablet Vomiting #30 tabs triamcinolone acetonide 0.1 % 1 appl topical BID PRN Itching #1 g 06/05/20 topical ointment zinc oxide 20 % topical ointment 1 appl topical DAILY PRN SKIN 06/05/20 IRRITATION #30 grams Allergies Allergy/AdvReac Type Severity Reaction Status Date / Time cephalexin [From KEFLEX] Allergy Unknown UNKNOWN Verified 02/11/22 16:32 meropenem [MEROPENEM] Allergy Unknown UNKNOWN Verified 05/24/20 03:36 Penicillins [PENICILLINS] Allergy Unknown UNKNOWN Verified 05/24/20 03:36 sulfamethoxazole Allergy Unknown UNKNOWN Verified 05/24/20 03:36 [From BACTRIM] trimethoprim [From BACTRIM] Allergy Unknown UNKNOWN Verified 05/24/20 03:36 Review of Systems Constitutional: Comments: Unknown if he has fevers or chills or increasing malaise Cardiovascular: Comments: denies chest pain at the moment Respiratory: Comments: cough with increasing respiratory distress Gastrointestinal: Comments: no nausea vomiting or abdominal pain Musculoskeletal: Comments: left leg and calf pain Integumentary/Breasts: Comments: no rash Neurologic: Comments: no focal weakness PMFSH Past Medical History Medical History (Updated 02/11/22 @ 21:13 by Jayce Diaz MD) Anemia, unspecified B-cell lymphoma Chronic a-fib Dermatitis Edema Hammer toes of both feet Hearing loss Impaired fasting glucose Mild cognitive impairment Morbid obesity Nail dystrophy Osteoarthritis Pain in right shoulder Stage 3 chronic kidney disease Unspecified atherosclerosis of [place] arteries of extremities, bilateral legs Social History Social History (Updated 05/21/20 @ 18:10 by Hossein Garcia MD) Alcohol intake: never Advance Directives: Yes Advance Directives on File: Yes Advance Directives Date on File: 02/11/22 service: Yes Current occupational status: retired Physical Exam ED Vital Signs: Vital Signs - 24 hr 02/11/22 16:32 02/11/22 17:06 02/11/22 18:00 Temperature 100.8 F H Pulse Rate 76 69 74 Respiratory Rate 16 21 H 26 H Blood Pressure 118/53 L 136/70 Pulse Oximetry 95 97 Oxygen Delivery Method Room Air Room Air BMI result Body Mass Index 46.3 Const Other: awake and alert with mild increased effort of breathing. Resp Other: Bilateral expiratory wheezes and rhonchi. Fair air entry Cardio Other: irregularly irregular with a rate of approximately 90 GI Other: soft nontender Skin Other: warm and dry without obvious rash Neuro Other: no obvious focal weakness or facial droop or aphasia Extrem Other: left calf with tenderness to palpation. Bilateral pedal edema. Right venous stasis rash. Course Course Course Narrative: Patient with increasing shortness of breath and relative leukocytosis. Concern for pneumonia or sepsis. Will treat with broad-spectrum IV antibiotics. Patient is allergic to cephalosporins as well as penicillins and meropenem. Will treat with quinolone. Will also add on cardiac studies. Repeat labs from earlier today. 21:10. Lab work shows white count Is increasing. It is now 15,000 compared to 13,000 earlier with a baseline of 4000. It also shows a left shift. D-dimer 0435 creatinine of 1.76. Given the high D-dimer with continued tachypnea in the setting of a clear chest x-ray, CT angiography ordered after weighing the risks and benefits. CTA shows no evidence of obvious PE or obvious infiltrate. Re-evaluation of patient shows he is still tachypneic with a rate of approximately 24 breaths per minute. His oxygen saturation is 94% at the moment. Will hospitalized for continued monitoring, IV antibiotics, IV hydration Medical Decision Making Lab Data Result diagrams: 02/11/22 16:30 02/11/22 16:30 Labs: Lab Results 02/11/22 02/11/22 02/11/22 Range/Units 16:30 16:30 16:30 WBC 15.3 H (4.8-10.8) X10*3/uL RBC 4.66 (4.60-5.80) X10*6/uL Hgb 12.9 L (14.0-18.0) g/dl Hct 39.9 L (42.0-52.0) % MCV 85.6 (80.0-98.0) fL MCH 27.7 (27.0-33.0) pg MCHC 32.3 (31.0-36.0) g/dl RDW 14.4 (11.0-16.0) % Plt Count 126 L (160-400) X10*3/uL MPV 8.9 L (9.4-12.4) fL Immature Gran % (Auto) 0.8 H (0.0-0.4) % Neut % (Auto) 92.5 H (45-73) % Lymph % (Auto) 1.4 L (20-40) % [place] % (Auto) 4.9 (2-11) % Eos % (Auto) 0.1 (0-4) % Baso % (Auto) 0.3 (0-2) % Lymph # (Auto) 0.2 L (1.2-4.9) X10*3/uL [place] # (Auto) 0.8 (0.1-1.2) X10*3/uL Eos # (Auto) 0.0 (0.0-0.4) X10*3/uL Baso # (Auto) 0.0 (0.0-0.2) X10*3/uL Abs Immat Gran (auto) 0.12 H (0.00-0.03) X10*3/uL Absolute Neuts (auto) 14.2 H (2.0-8.3) x10*3/uL Absolute Nucleated RBC 0.000 (0.0-0.012) X10*3/uL Nucleated RBC % (auto) 0.0 (0.0-0.2) /100WBC PT (10.0-13.1) SEC INR (0.9-1.1) D-Dimer High Sensitivty NG/ML Sodium 136 (135-145) mmol/L Potassium 4.9 (3.3-5.1) mmol/L Chloride 103 (96-108) mmol/L Carbon Dioxide 22 (22-29) mmol/L Anion Gap 16 (12-20) BUN 42 H (9-16) mg/dL Creatinine 1.76 H (0.5-1.4) mg/dL Estim Creat Clear Calc 58.8 Estimated GFR 38 Random Glucose 140 H (60-115) mg/dL Lactic Acid 1.0 (0.5-2.0) mmol/L Calcium 9.0 (8.4-10.2) mg/dL Total Bilirubin 0.8 (0.0-1.0) mg/dL AST 24 (5-37) U/L ALT 22 (0-40) U/L Alkaline Phosphatase 56 (39-117) U/L Troponin I High Sens (<3.5-35.0) ng/L B-Natriuretic Peptide (<100) pg/mL Total Protein 6.2 L (6.5-8.0) g/dL Albumin 4.0 (3.5-5.0) g/dL Urine Color Urine Appearance Urine pH (5.0-9.0) Ur Specific [place] (1.005-1.025) Urine Protein (Neg-Trace) mg/dL Urine Glucose (UA) (Negative) mg/dL Urine Ketones (Negative) mg/dL Urine Blood (Negative) Urine Nitrite (Negative) Ur Leukocyte Esterase (Negative) Urine RBC (0-2) /HPF Urine WBC (0-5) /HPF Ur Squamous Epith Cells (0-2) /HPF Urine Bacteria (None Seen) Hyaline Casts (0-2) /LPF 02/11/22 02/11/22 02/11/22 Range/Units 16:30 16:30 18:43 WBC (4.8-10.8) X10*3/uL RBC (4.60-5.80) X10*6/uL Hgb (14.0-18.0) g/dl Hct (42.0-52.0) % MCV (80.0-98.0) fL MCH (27.0-33.0) pg MCHC (31.0-36.0) g/dl RDW (11.0-16.0) % Plt Count (160-400) X10*3/uL MPV (9.4-12.4) fL Immature Gran % (Auto) (0.0-0.4) % Neut % (Auto) (45-73) % Lymph % (Auto) (20-40) % [place] % (Auto) (2-11) % Eos % (Auto) (0-4) % Baso % (Auto) (0-2) % Lymph # (Auto) (1.2-4.9) X10*3/uL [place] # (Auto) (0.1-1.2) X10*3/uL Eos # (Auto) (0.0-0.4) X10*3/uL Baso # (Auto) (0.0-0.2) X10*3/uL Abs Immat Gran (auto) (0.00-0.03) X10*3/uL Absolute Neuts (auto) (2.0-8.3) x10*3/uL Absolute Nucleated RBC (0.0-0.012) X10*3/uL Nucleated RBC % (auto) (0.0-0.2) /100WBC PT 12.4 (10.0-13.1) SEC INR 1.1 (0.9-1.1) D-Dimer High Sensitivty 435 NG/ML Sodium (135-145) mmol/L Potassium (3.3-5.1) mmol/L Chloride (96-108) mmol/L Carbon Dioxide (22-29) mmol/L Anion Gap (12-20) BUN (9-16) mg/dL Creatinine (0.5-1.4) mg/dL Estim Creat Clear Calc Estimated GFR Random Glucose (60-115) mg/dL Lactic Acid (0.5-2.0) mmol/L Calcium (8.4-10.2) mg/dL Total Bilirubin (0.0-1.0) mg/dL AST (5-37) U/L ALT (0-40) U/L Alkaline Phosphatase (39-117) U/L Troponin I High Sens 49.8 H (<3.5-35.0) ng/L B-Natriuretic Peptide 241 H (<100) pg/mL Total Protein (6.5-8.0) g/dL Albumin (3.5-5.0) g/dL Urine Color Yellow Urine Appearance Clear Urine pH 5.5 (5.0-9.0) Ur Specific [place] 1.025 (1.005-1.025) Urine Protein Trace (Neg-Trace) mg/dL Urine Glucose (UA) Negative (Negative) mg/dL Urine Ketones Negative (Negative) mg/dL Urine Blood Negative (Negative) Urine Nitrite Negative (Negative) Ur Leukocyte Esterase Trace H (Negative) Urine RBC 0-2 (0-2) /HPF Urine WBC 0-5 (0-5) /HPF Ur Squamous Epith Cells 0-2 (0-2) /HPF Urine Bacteria None Seen (None Seen) Hyaline Casts 0-2 (0-2) /LPF Discharge Plan Discharge Prescriptions: No Action acetaminophen 325 mg Tablet 650 mg PO Q4H PRN (Reason: Pain, Mild (Pain Scale 1-3)) Qty: 30 0RF miconazole nitrate [Inzo Antifungal] 2 % Cream 1 appl topical DAILY PRN (Reason: SKIN IRRITATION) Qty: 1 0RF Protocol: Apply to: Apply to: AFFECTED AREA prochlorperazine maleate 5 mg Tablet 10 mg PO Q6H PRN (Reason: Nausea And Vomiting) Qty: 30 0RF metoprolol succinate 100 mg Tablet Extended Release 24 Hr 100 mg PO DAILY@0600 Qty: 30 0RF dextromethorphan-guaifenesin 10-100 mg/5 mL Syrup 10 ml PO QID PRN (Reason: Cough) Qty: 200 0RF magnesium oxide 400 mg (241.3 mg magnesium) Tablet 400 mg PO DAILY@0600 Qty: 30 0RF magnesium hydroxide [Milk of Magnesia] 400 mg/5 mL Suspension 30 ml PO DAILY PRN (Reason: Constipation) Qty: 300 0RF bisacodyl [Gentle Laxative (bisacodyl)] 10 mg Suppository 10 mg MT DAILY PRN (Reason: Constipation) Qty: 30 0RF triamcinolone acetonide 0.1 % Ointment 1 appl topical BID PRN (Reason: Itching) Qty: 1 0RF Protocol: Apply to: Apply to: AFFECTED AREA aspirin 81 mg Tablet,Chewable 81 mg PO DAILY@0600 Qty: 30 0RF metoprolol succinate 25 mg Tablet Extended Release 24 Hr 25 mg PO DAILY@0600 Qty: 30 0RF nystatin 100,000 unit/gram Powder 1 appl topical BID PRN (Reason: Itching) Qty: 30 0RF Protocol: Apply to: Apply to: AFFECTED AREA loratadine 10 mg Tablet 10 mg PO DAILY@0600 Qty: 30 0RF zinc oxide 20 % Ointment 1 appl topical DAILY PRN (Reason: SKIN IRRITATION) Qty: 30 0RF Protocol: Apply to: Apply to: AFFECTED AREA
[2022-02-11 16:32] VITALS: BP 108/60; BP 118/53; PULSE 76; PULSE 90; RESP 16; TEMP 38.2; O2SAT 95; O2SAT 96; BMI 46.3
[2022-02-11 16:42] LABS: Basophils Percent Auto 0.3 % (0-2); Eosinophils Percent Auto 0.1 % (0-4); Hematocrit 39.9 % (42.0-52.0); Hemoglobin 12.9 g/dl (14.0-18.0); Imm Gran Abs Auto 0.12 X10*3/uL (0.00-0.03); Imm Gran Pct Auto 0.8 % (0.0-0.4); Lymphocytes Absolute Auto 0.2 X10*3/uL (1.2-4.9); Lymphocytes Percent Auto 1.4 % (20-40); MANUAL DIFF FLAG SCAN; Mean Corpuscular HGB Conc 32.3 g/dl (31.0-36.0); Mean Corpuscular Hemoglobin 27.7 pg (27.0-33.0); Mean Corpuscular Volume 85.6 fL (80.0-98.0); Mean Platelet Volume 8.9 fL (9.4-12.4); Monocytes Absolute Auto 0.8 X10*3/uL (0.1-1.2); Monocytes Percent Auto 4.9 % (2-11); Neutrophils Absolute Auto 14.2 x10*3/uL (2.0-8.3); Neutrophils Percent Auto 92.5 % (45-73); Platelet Count 126 X10*3/uL (160-400); Red Blood Count 4.66 X10*6/uL (4.60-5.80); Red Cell Distribution Width 14.4 % (11.0-16.0); SCAN SMEAR FLAG 1; White Blood Count 15.3 X10*3/uL (4.8-10.8)
[2022-02-11] MEDS: levoFLOXacin/D5W 500 MG/100 ML PIGGYBACK 100 MG IV (16:48)
[2022-02-11] MEDS: methylPREDNISolone Sod Succ 125 MG/2 ML VIAL IVPUSH (16:48)
[2022-02-11] MEDS: 0.9 % Sodium Chloride 500 ML IV (16:50)
[2022-02-11 16:53] LABS: INTERNATIONAL NORM RATIO 1.1 (0.9-1.1); Prothrombin Time 12.4 SEC (10.0-13.1)
[2022-02-11 16:55] LABS: D Dimer High Sensitivity 435 NG/ML
[2022-02-11 17:01] LABS: Alanine Aminotransferase 22 U/L (0-40); Alkaline Phosphatase 56 U/L (39-117); Anion Gap 16 (12-20); Aspartate Amino Transferase 24 U/L (5-37); Bilirubin Total 0.8 mg/dL (0.0-1.0); Blood Urea Nitrogen 42 mg/dL (9-16); Carbon Dioxide 22 mmol/L (22-29); Chloride 103 mmol/L (96-108); Creatinine Clr Calc Pharmacy 58.8; Estimated Glomerular Filt Rate 38; Glucose Random 140 mg/dL (60-115); Potassium 4.9 mmol/L (3.3-5.1); Sodium 136 mmol/L (135-145); Total Protein 6.2 g/dL (6.5-8.0)
[2022-02-11 17:04] LABS: B Type Natriuretic Peptide 241 pg/mL (<100); Troponin-I High Sensitivity 49.8 ng/L (<3.5-35.0)
[2022-02-11] MEDS: Albuterol/Iprat 2.5/0.5MG 3 ML AMPUL.NEB INHALE (17:05)
[2022-02-11 17:06] VITALS: PULSE 69; RESP 21; O2SAT 97
[2022-02-11 18:00] VITALS: BP 136/70; PULSE 74; RESP 26; O2SAT 97
[2022-02-11 18:54] LABS: Appearance Urine Clear; Color Urine Yellow; Glucose Urine UA Negative (Negative); Leukocyte Esterase Urine Trace (Negative); Nitrite Urine Negative (Negative); PH 5.5 (5.0-9.0); Specific Gravity - Urine 1.025 (1.005-1.025); UMIC TRIGGER UACC YES; Urine Blood Negative (Negative); Urine Ketones Negative (Negative); Urine Protein Trace mg/dL (Neg-Trace)
[2022-02-11 19:04] LABS: Bacteria Urine None Seen (None Seen); Hyaline Casts Urine 0-2 /LPF (0-2); RBC Urine 0-2 /HPF (0-2); Squamous Epithelial Cell Urine 0-2 /HPF (0-2); WBC Urine 0-5 /HPF (0-5)
[2022-02-11] MEDS: iohexoL 350 MG/ML 100 ML INFUS..BTL IV (20:51)
[2022-02-11 21:27] LABS: Troponin-I High Sensitivity 35.6 ng/L (<3.5-35.0)
--- NOTE | 2022-02-11 22:19 | PHA.MEDREC ---
Pharmacy Consult ? Medication Reconciliation Pharmacy has completed the medication reconciliation. PATIENT FROM [facility]
--- NOTE | 2022-02-11 22:29 | PM.IMHP ---
History of Present Illness Date of Service: 02/11/22 Chief Complaint: Cough 76-year-old male with past medical history of chronic AFib, CKD, who presents to the hospital with complaints of cough, shortness of breath. Patient reports that his symptoms started about 1 week ago, persistent cough, he denies any sputum production.patient denies any fever chills, no chest pain, no abdominal pain nausea or vomiting, no diarrhea constipation, no urinary symptoms and no lower extremity edema. He denies any orthopnea or PND. He denies any recent immobilization or recent surgery. Pt reports that he smoked when he was in [employer] to [employer] 3 but never smoked since then. He has not been diagnosed with COPD in the past On arrival to the ED patient found to have a temperature of 100.8 degrees, otherwise hemodynamically stable Labs are significant for WBC count of 13.1, hemoglobin of 13.1 which is around his baseline, hematocrit 40.5, BUN of 42, creatinine of 1.76 which is around his baseline, troponin 49.8 repeat of 35.6, BNP of 241, respiratory viral panel pending CT angiogram is negative for segmental PE, no evidence of pneumonia Review of Systems Review of Systems: Yes all other systems are reviewed and are negative [facility] Medical History Anemia, unspecified B-cell lymphoma Chronic a-fib Dermatitis Edema Hammer toes of both feet Hearing loss Impaired fasting glucose Mild cognitive impairment Morbid obesity Nail dystrophy Osteoarthritis Pain in right shoulder Stage 3 chronic kidney disease Unspecified atherosclerosis of [place] arteries of extremities, bilateral legs Family History Other No family history of coronary artery disease Surgical History No pertinent past surgical history Social History Alcohol intake: never Patient Tobacco Use Status: Former Tobacco user Tobacco use type: Cigarette Advance Directives: Yes Advance Directives on File: Yes Advance Directives Date on File: 02/11/22 service: Yes Current occupational status: retired Meds Allergies Allergy/AdvReac Type Severity Reaction Status Date / Time cephalexin [From KEFLEX] Allergy Unknown UNKNOWN Verified 02/11/22 16:32 meropenem [MEROPENEM] Allergy Unknown UNKNOWN Verified 05/24/20 03:36 Penicillins [PENICILLINS] Allergy Unknown UNKNOWN Verified 05/24/20 03:36 sulfamethoxazole Allergy Unknown UNKNOWN Verified 05/24/20 03:36 [From BACTRIM] trimethoprim [From BACTRIM] Allergy Unknown UNKNOWN Verified 05/24/20 03:36 Home Medications Medication Instructions Recorded Confirmed Last Taken Type Lactobacillus acidoph-L.bulgaricus 1 tab PO DAILY 02/11/22 02/11/22 02/11/22 History 1 million cell tablet (Floranex) acetaminophen 325 mg tablet 650 mg PO BEDTIME 02/11/22 02/11/22 02/10/22 History acetaminophen 325 mg tablet 650 mg PO Q6H PRN Pain, Mild (Pain 02/11/22 02/11/22 Unknown History Scale 1-3)/FEVER aloe vera 5,000 mg capsule 20,000 mg PO DAILY@59902/11/22 02/11/22 02/11/22 History ascorbic acid (vitamin C) 250 mg 250 mg PO DAILY@59902/11/22 02/11/22 Unknown History tablet (Vitamin C) aspirin 81 mg tablet,delayed 81 mg PO DAILY@59902/11/22 02/11/22 02/11/22 History release coenzyme Q10 200 mg capsule 200 mg PO DAILY@59902/11/22 02/11/22 02/11/22 History dextromethorphan-guaifenesin 10 10 ml PO QID PRN Cough 02/11/22 02/11/22 Unknown History mg-100 mg/5 mL oral syrup omega 2-atz-rhy-fish oil 1,200 mg 2 cap PO DAILY@59902/11/22 02/11/22 02/11/22 History (144 mg-216 mg) capsule (Fish Oil) psyllium husk 3.4 gram/5.4 gram 1 tbsp PO DAILY PRN Constipation 02/11/22 02/11/22 Unknown History oral powder (Metamucil) vitamin E (dl, acetate) 180 mg 180 mg PO DAILY@59902/11/22 02/11/22 Unknown History (400 unit) capsule Physical Exam Vital Signs and Narrative: Vital Signs: Last Vital Signs Temp 100.8 F H 02/11/22 16:32 Pulse 74 02/11/22 18:00 Resp 26 H 02/11/22 18:00 BP 136/70 02/11/22 18:00 Pulse Ox 97 02/11/22 18:00 O2 Del Method 02/11/22 18:00 BMI result Body Mass Index 46.3 Const: General: cooperative and no acute distress Orientation/consciousness: patient oriented x3 Eyes: General: appearance normal, both eyes and all related structures Pupils: Equal, round and reactive pupils present Resp: Other: significant wheezing on expiration Effort & Inspection: normal respiratory effort Cardio: Rate: regular rate Rhythm: regular rhythm GI: Palpation (GI): Soft to palpation Auscultation: normal bowel sounds Skin: General skin exam: no rashes or lesions noted Neuro: General: patient oriented x3 Cranial nerves: Yes Equal, round and reactive pupils present Cognition (Neuro): normal cognition Extrem: General: Yes normal to inspection and Yes no pedal edema Results Labs CBC and Chem 7: 02/11/22 16:30 02/11/22 16:30 Labs: Laboratory Results - last 24 hr 02/11/22 02/11/22 02/11/22 16:30 16:30 16:30 MCV 85.6 MCH 27.7 MCHC 32.3 RDW 14.4 Plt Count 126 L MPV 8.9 L Immature Gran % (Auto) 0.8 H Neut % (Auto) 92.5 H Lymph % (Auto) 1.4 L [place] % (Auto) 4.9 Eos % (Auto) 0.1 Baso % (Auto) 0.3 Lymph # (Auto) 0.2 L [place] # (Auto) 0.8 Eos # (Auto) 0.0 Baso # (Auto) 0.0 Abs Immat Gran (auto) 0.12 H Absolute Neuts (auto) 14.2 H Absolute Nucleated RBC 0.000 Nucleated RBC % (auto) 0.0 PT INR D-Dimer High Sensitivty Anion Gap 16 Estim Creat Clear Calc 58.8 Estimated GFR 38 Random Glucose 140 H Lactic Acid 1.0 Calcium 9.0 Total Bilirubin 0.8 AST 24 ALT 22 Alkaline Phosphatase 56 B-Natriuretic Peptide Total Protein 6.2 L Albumin 4.0 Urine Color Urine Appearance Urine pH Ur Specific [place] Urine Protein Urine Glucose (UA) Urine Ketones Urine Blood Urine Nitrite Ur Leukocyte Esterase Urine RBC Urine WBC Ur Squamous Epith Cells Urine Bacteria Hyaline Casts 02/11/22 02/11/22 02/11/22 16:30 16:30 18:43 MCV MCH MCHC RDW Plt Count MPV Immature Gran % (Auto) Neut % (Auto) Lymph % (Auto) [place] % (Auto) Eos % (Auto) Baso % (Auto) Lymph # (Auto) [place] # (Auto) Eos # (Auto) Baso # (Auto) Abs Immat Gran (auto) Absolute Neuts (auto) Absolute Nucleated RBC Nucleated RBC % (auto) PT 12.4 INR 1.1 D-Dimer High Sensitivty 435 Anion Gap Estim Creat Clear Calc Estimated GFR Random Glucose Lactic Acid Calcium Total Bilirubin AST ALT Alkaline Phosphatase B-Natriuretic Peptide 241 H Total Protein Albumin Urine Color Yellow Urine Appearance Clear Urine pH 5.5 Ur Specific [place] 1.025 Urine Protein Trace Urine Glucose (UA) Negative Urine Ketones Negative Urine Blood Negative Urine Nitrite Negative Ur Leukocyte Esterase Trace H Urine RBC 0-2 Urine WBC 0-5 Ur Squamous Epith Cells 0-2 Urine Bacteria None Seen Hyaline Casts 0-2 Imaging Radiologist's Impressions: Impressions Venous Duplex 02/11/22 17:30 IMPRESSION: 1. No DVT demonstrated in the left lower extremity. 2. Popliteal cyst measuring 6.7 x 2.5 x 2.9 cm in size. Chest X-Ray 02/11/22 17:40 IMPRESSION: No acute pulmonary process. Chest CTA 02/11/22 20:22 IMPRESSION: 1. Limited examination for detection of pulmonary emboli. No central or obvious/large segmental pulmonary embolus. 2. Mild atelectasis. No consolidation or effusions. VTE: Negative, limited as above Assessment and Plan (1) Acute bronchitis: Status: Acute (2) Leukocytosis: Status: Acute (3) CKD (chronic kidney disease): Status: Acute (4) Elevated troponin: Status: Acute Plan 76-year-old male with past medical history of CKD, chronic AFib not on coagulation presents to the hospital with cough, dyspnea # acute bronchitis - not hypoxic - has not improved for over 5 days, has significant wheezing on exam and tachypnea on minimal exertion - will treat with breathing treatments, and significant wheezing will also administer Solu-Medrol - cough medication - COVID negative, chest CT and x-ray negative for any evidence of pneumonia - monitor respiratory status - respiratory viral panel pending # leukocytosis - likely secondary to viral infection - will continue to monitor off antibiotics - follow CBC # elevated troponin - likely type 2 - no chest pain, no delta - monitor for any chest pain # CKD - at baseline - follow BMP # chronic AFib - rate controlled - continue metoprolol - not on anticoagulation DVT prophylaxis: heparin subQ Quality Stroke Does the patient have a stroke diagnosis?: No VTE Prior VTE?: No VTE Risk Level:: Medical - moderate - high VTE Device Contraindication: Treatment Not Indicated VTE Drug Contraindication: N/A - Med Ordered
[2022-02-11 23:12] VITALS: BP 150/80; PULSE 79; RESP 18; O2SAT 93
[2022-02-12] VITALS (8 sets, daily range): BP systolic 128–159; BP diastolic 64–84; PULSE 68–75; RESP 16–22; TEMP 35.8–36.8; O2SAT 95–96
[2022-02-12] MEDS: methylPREDNISolone Sod Succ 40 MG/ML VIAL IVPUSH ×2 (00:06→13:20)
[2022-02-12 00:25] LABS: Magnesium 1.8 mg/dL (1.6-2.6)
[2022-02-12 00:29] LABS: COVID-19 Test Negative (Negative)
[2022-02-12] MEDS: 0.9 % Sodium Chloride Flush 3 ML SYRINGE IVFLUSH ×3 (01:45→15:53)
--- NOTE | 2022-02-12 04:24 | PC.NURSE ---
Patent refused heparin SQ injection-patient instructed in importance of receiving injection to prevent DVT/blood cots d/t decreased mobility-patient verbalized understanding, but continues to decline. Dr. Nixon informed via [employer] message, no new orders at this time.
[2022-02-12 04:34] LABS: Basophils Percent Auto 0.1 % (0-2); Eosinophils Percent Auto 0.1 % (0-4); Hematocrit 36.5 % (42.0-52.0); Hemoglobin 12.1 g/dl (14.0-18.0); Imm Gran Abs Auto 0.07 X10*3/uL (0.00-0.03); Imm Gran Pct Auto 0.5 % (0.0-0.4); Lymphocytes Absolute Auto 0.3 X10*3/uL (1.2-4.9); Lymphocytes Percent Auto 1.8 % (20-40); MANUAL DIFF FLAG SCAN; Mean Corpuscular HGB Conc 33.2 g/dl (31.0-36.0); Mean Corpuscular Hemoglobin 27.8 pg (27.0-33.0); Mean Corpuscular Volume 83.9 fL (80.0-98.0); Mean Platelet Volume 8.9 fL (9.4-12.4); Monocytes Absolute Auto 0.1 X10*3/uL (0.1-1.2); Monocytes Percent Auto 0.7 % (2-11); Neutrophils Absolute Auto 13.2 x10*3/uL (2.0-8.3); Neutrophils Percent Auto 96.8 % (45-73); Platelet Count 105 X10*3/uL (160-400); Red Blood Count 4.35 X10*6/uL (4.60-5.80); Red Cell Distribution Width 14.4 % (11.0-16.0); SCAN SMEAR FLAG 1; White Blood Count 13.6 X10*3/uL (4.8-10.8)
[2022-02-12 04:55] LABS: Anion Gap 17 (12-20); Blood Urea Nitrogen 37 mg/dL (9-16); Calcium 8.7 mg/dL (8.4-10.2); Carbon Dioxide 18 mmol/L (22-29); Chloride 107 mmol/L (96-108); Creatinine Clr Calc Pharmacy 70.4; Estimated Glomerular Filt Rate 47; Glucose Random 186 mg/dL (60-115); Potassium 4.6 mmol/L (3.3-5.1); Sodium 137 mmol/L (135-145)
[2022-02-12 04:58] LABS: SLIDE REVIEW VERIFIED
[2022-02-12] MEDS: Metoprolol Succinate ER 25 MG TAB.ER.24H PO (05:38)
[2022-02-12] MEDS: Magnesium Oxide 400 MG TABLET PO (05:38)
[2022-02-12] MEDS: Ascorbic Acid 250 MG TABLET PO (05:38)
[2022-02-12] MEDS: Metoprolol Succinate ER 100 MG TAB.ER.24H PO (05:39)
[2022-02-12] MEDS: Aspirin Enteric Coated 81 MG TABLET.DR PO (05:39)
[2022-02-12 09:10] LABS: Adenovirus PCR Not Detected (Not Detect.); Bordetella parapertussis PCR Not Detected (Not Detect.); Bordetella pertussis PCR Not Detected (Not Detect.)
[2022-02-12 09:11] LABS: Chlamydia pneumoniae PCR Not Detected (Not Detect.); Coronavirus 229E PCR Not Detected (Not Detect.); Coronavirus HKU1 PCR Not Detected (Not Detect.); Coronavirus NL63 PCR Not Detected (Not Detect.); Coronavirus OC43 PCR Not Detected (Not Detect.); Human metapneumovirus PCR Not Detected (Not Detect.); Influenza A PCR Not Detected (Not Detect.); Influenza B PCR Not Detected (Not Detect.); Mycoplasma pneumoniae PCR Not Detected (Not Detect.); Parainfluenza 1 PCR Not Detected (Not Detect.); Parainfluenza 2 PCR Not Detected (Not Detect.); Parainfluenza 3 PCR Not Detected (Not Detect.); Parainfluenza 4 PCR Not Detected (Not Detect.); RSV PCR Not Detected (Not Detect.); Rhino/Enterovirus PCR Not Detected (Not Detect.); SARS-CoV-2 PCR Not Detected (Not Detect.)
[2022-02-12] MEDS: Albuterol/Iprat 2.5/0.5MG 3 ML AMPUL.NEB INHALE ×2 (14:50→19:51)
--- NOTE | 2022-02-12 18:38 | P.PNIM_ITS ---
Subjective Subjective Date of Service: 02/12/22 Interval History: Possible acute bronchitis Review of Systems still short of breath with talkin,talks with short small sentences. Physical Exam Vital Signs: Vital Signs: Last Vital Signs Temp 96.9 F 02/12/22 16:36 Pulse 75 02/12/22 16:36 Resp 19 02/12/22 16:36 BP 140/64 H 02/12/22 16:36 Pulse Ox 96 02/12/22 11:56 O2 Del Method 02/12/22 16:36 BMI result Body Mass Index 46.3 Appearance: Alert.? Oriented.?sob cvs: rrr, [id number] , no murmur res: Diminished breath sound, has few scattered wheeze abd: no rebound or guarding ,nt, bs present. ext pulses present , no cyanosis . neuro: nonfocal. Objective Data Active Medications Acetaminophen (Acetaminophen 325 Mg Tablet) 650 mg PO Q6H PRN PRN Reason: Pain, Mild (Pain Scale 1-3) Albuterol/Ipratropium (Albuterol/Iprat 2.5/0.5mg 3 Ml Ampul.Neb) 3 ml INHALE RQ4H PRN PRN Reason: Shortness of Breath/Wheezing Albuterol/Ipratropium (Albuterol/Iprat 2.5/0.5mg 3 Ml Ampul.Neb) 3 ml INHALE RQ4H WHILE AWAKE [facility] Last Admin: 02/12/22 14:50 Dose: 3 ml Documented By: MICHELLE Ascorbic Acid (Ascorbic Acid 250 Mg Tablet) 250 mg PO DAILY@0600 [facility] Last Admin: 02/12/22 05:38 Dose: 250 mg Documented By: LIZZ Aspirin (Aspirin Enteric Coated 81 Mg Tablet.Dr) 81 mg PO DAILY@0600 [facility] Last Admin: 02/12/22 05:39 Dose: 81 mg Documented By: LIZZ Bisacodyl (Bisacodyl 10 Mg Supp.Rect) 10 mg VT DAILY PRN PRN Reason: Constipation Docusate Sodium (Docusate Sodium 100 Mg Capsule) 100 mg PO DAILY PRN PRN Reason: Constipation Heparin Sodium (Porcine) (Heparin Sodium,Porcine 5,000 Unit/Ml Vial) 5,000 unit SUBCUT Q12H [facility] Last Admin: 02/12/22 13:20 Dose: Not Given Documented By: DUDLEY Non-Admin Reason: Patient Refused Magnesium Hydroxide (Milk Of Magnesia 30 Ml Oral.Susp) 30 ml PO DAILY PRN PRN Reason: Constipation Magnesium Oxide (Magnesium Oxide 400 Mg Tablet) 400 mg PO DAILY@0600 [facility] Last Admin: 02/12/22 05:38 Dose: 400 mg Documented By: LIZZ Methylprednisolone Sodium Succinate (Methylprednisolone Sod Succ 40 Mg/Ml Vial) 40 mg IVPUSH Q12H [facility] Last Admin: 02/12/22 13:20 Dose: 40 mg Documented By: DUDLEY Metoprolol Succinate (Metoprolol Succinate Er 25 Mg Tab.Er.24h) 25 mg PO DAILY@0600 [facility]; Protocol Last Admin: 02/12/22 05:38 Dose: 25 mg Documented By: LIZZ Metoprolol Succinate (Metoprolol Succinate Er 100 Mg Tab.Er.24h) 100 mg PO DAILY@0600 [facility]; Protocol Last Admin: 02/12/22 05:39 Dose: 100 mg Documented By: LIZZ Ondansetron HCl (Ondansetron Hcl 4 Mg/2 Ml Vial) 4 mg IVPUSH Q8H PRN PRN Reason: Nausea and Vomiting Sodium Chloride (0.9 % Sodium Chloride Flush 3 Ml Syringe) 3 ml IVFLUSH QSHIFT [facility] Last Admin: 02/12/22 15:53 Dose: 3 ml Documented By: NEO Vitamin E (Vitamin E (Dl,Tocopheryl Acet) 180 Mg (400 Unit) Capsule) 180 mg PO DAILY@0600 [facility] Last Admin: 02/12/22 06:32 Dose: Not Given Documented By: LIZZ Non-Admin Reason: Med Not Available Labs CBC & Chem 7: 02/12/22 04:15 02/12/22 04:15 Labs: Laboratory Results - last 24 hr 02/11/22 02/11/22 02/11/22 16:30 16:47 18:43 MCV MCH MCHC RDW Plt Count MPV Immature Gran % (Auto) Neut % (Auto) Lymph % (Auto) [place] % (Auto) Eos % (Auto) Baso % (Auto) Lymph # (Auto) [place] # (Auto) Eos # (Auto) Baso # (Auto) Abs Immat Gran (auto) Absolute Neuts (auto) Absolute Nucleated RBC Nucleated RBC % (auto) Smear Tech's Comments Anion Gap Estim Creat Clear Calc Estimated GFR Random Glucose Calcium Magnesium 1.8 Urine Color Yellow Urine Appearance Clear Urine pH 5.5 Ur Specific [place] 1.025 Urine Protein Trace Urine Glucose (UA) Negative Urine Ketones Negative Urine Blood Negative Urine Nitrite Negative Ur Leukocyte Esterase Trace H Urine RBC 0-2 Urine WBC 0-5 Ur Squamous Epith Cells 0-2 Urine Bacteria None Seen Hyaline Casts 0-2 Respiratory Panel Vargas See Note Adenovirus (Rapid PCR) Not Detected B.pert (TEM-PCR) Not Detected B.parapertussis DNA PCR Not Detected C. pneumoniae DNA (PCR) Not Detected Coronavirus OC43 (PCR) Not Detected Coronavirus HKU1 (PCR) Not Detected Coronavirus 229E (PCR) Not Detected COVID-19 (FAY) COVID-19 Clin Com Coronavirus NL63 (PCR) Not Detected Human Metapneumovir PCR Not Detected Influenza A (RT-PCR) Not Detected Influenza B (RT-PCR) Not Detected M. pneumoniae (PCR) Not Detected Parainfluenza 1 (PCR) Not Detected Parainfluenza 2 (PCR) Not Detected Parainfluenza 3 (PCR) Not Detected Parainfluenza 4 (PCR) Not Detected RSV (PCR) Not Detected Entero/Rhino (PCR) Not Detected SARS-CoV-2 RNA (RT-PCR) Not Detected 02/12/22 02/12/22 02/12/22 00:09 04:15 04:15 MCV 83.9 MCH 27.8 MCHC 33.2 RDW 14.4 Plt Count 105 L MPV 8.9 L Immature Gran % (Auto) 0.5 H Neut % (Auto) 96.8 H Lymph % (Auto) 1.8 L [place] % (Auto) 0.7 L Eos % (Auto) 0.1 Baso % (Auto) 0.1 Lymph # (Auto) 0.3 L [place] # (Auto) 0.1 Eos # (Auto) 0.0 Baso # (Auto) 0.0 Abs Immat Gran (auto) 0.07 H Absolute Neuts (auto) 13.2 H Absolute Nucleated RBC 0.000 Nucleated RBC % (auto) 0.0 Smear Tech's Comments VERIFIED Anion Gap 17 Estim Creat Clear Calc 70.4 Estimated GFR 47 Random Glucose 186 H Calcium 8.7 Magnesium Urine Color Urine Appearance Urine pH Ur Specific [place] Urine Protein Urine Glucose (UA) Urine Ketones Urine Blood Urine Nitrite Ur Leukocyte Esterase Urine RBC Urine WBC Ur Squamous Epith Cells Urine Bacteria Hyaline Casts Respiratory Panel Vargas Adenovirus (Rapid PCR) B.pert (TEM-PCR) B.parapertussis DNA PCR C. pneumoniae DNA (PCR) Coronavirus OC43 (PCR) Coronavirus HKU1 (PCR) Coronavirus 229E (PCR) COVID-19 (FAY) Negative COVID-19 Clin Com See Note Coronavirus NL63 (PCR) Human Metapneumovir PCR Influenza A (RT-PCR) Influenza B (RT-PCR) M. pneumoniae (PCR) Parainfluenza 1 (PCR) Parainfluenza 2 (PCR) Parainfluenza 3 (PCR) Parainfluenza 4 (PCR) RSV (PCR) Entero/Rhino (PCR) SARS-CoV-2 RNA (RT-PCR) Assessment and Plan (1) CKD (chronic kidney disease): Status: Acute (2) Acute bronchitis: Status: Acute (3) Leukocytosis: Status: Acute Plan ?76-year-old male with past medical history of CKD, chronic AFib not on coagulation presents to the hospital with cough, dyspnea #? acute bronchitis-?possible viral -? not hypoxic,wbc improving , no new fevers -? has not improved for over 5 days,? has significant wheezing on exam and? tachypnea on minimal exertion -? will treat with breathing treatments, and significant wheezing will also administer Solu-Medrol -? cough medication -? COVID negative, chest? CT and x-ray negative for any evidence of pneumonia -? monitor respiratory status -? respiratory viral panel pending no sepsis #? leukocytosis -? likely secondary to viral infection -? will continue to monitor off antibiotics -? follow CBC #? elevated troponin -? likely type 2 -? no chest pain,? no delta -? monitor for any chest pain #? CKD -? at baseline -? follow BMP #? chronic AFib -? rate controlled -? continue metoprolol -? not on anticoagulation ?DVT prophylaxis: heparin subQ inpatient needs: acute bronchitis -still sob-needs iv steriods ,nebs Quality Stroke Does the patient have a stroke diagnosis?: No VTE Prior VTE?: No VTE Risk Level:: Medical - moderate - high VTE Device Contraindication: Treatment Not Indicated VTE Drug Contraindication: N/A - Med Ordered
--- NOTE | 2022-02-12 19:37 | PC.NURSE ---
introduced self to patient. pt resting comfortably on stretcher, no apparent distress. watching tv, call viveros within reach. will continue to monitor.
[2022-02-13] MEDS: 0.9 % Sodium Chloride Flush 3 ML SYRINGE IVFLUSH ×2 (00:27→09:38)
[2022-02-13] MEDS: methylPREDNISolone Sod Succ 40 MG/ML VIAL IVPUSH ×2 (00:27→09:35)
[2022-02-13 03:49] VITALS: BP 148/75; PULSE 62; RESP 16; TEMP 36.2; O2SAT 95
[2022-02-13] MEDS: Magnesium Oxide 400 MG TABLET PO (05:08)
[2022-02-13] MEDS: Metoprolol Succinate ER 25 MG TAB.ER.24H PO (05:08)
[2022-02-13] MEDS: Vitamin E (Dl,Tocopheryl Acet) 180 MG (400 UNIT) CAPSULE PO (05:08)
[2022-02-13] MEDS: Ascorbic Acid 250 MG TABLET PO (05:08)
[2022-02-13] MEDS: Metoprolol Succinate ER 100 MG TAB.ER.24H PO (05:09)
[2022-02-13] MEDS: Aspirin Enteric Coated 81 MG TABLET.DR PO (05:09)
[2022-02-13] MEDS: Albuterol/Iprat 2.5/0.5MG 3 ML AMPUL.NEB INHALE ×3 (06:30→15:25)
[2022-02-13 07:39] VITALS: BP 182/95; PULSE 80; RESP 14; TEMP 36.4; O2SAT 98
--- NOTE | 2022-02-13 08:47 | MHC.CM.PN ---
Patient is a LTC Resident at the [facility] and returning there is the goal, once Patient is medically cleared for dc.Patient has a diagnosis of Mild Cognitive Impairment; BETY addressed with Sister/Madyson @ [phone], via detailed phone message left and original will be mailed to Madyson and a copy will be placed on the chart.
[2022-02-13] MEDS: hydrALAZINE HCl 10 MG TABLET PO (09:37)
[2022-02-13 11:17] VITALS: BP 138/80; PULSE 72; PULSE 74; RESP 14; RESP 18; TEMP 36.7; O2SAT 95; O2SAT 96
--- NOTE | 2022-02-13 12:11 | PM.DS ---
DS: Providers Provider Date of Service: 02/13/22 Date of admission: 02/11/22 22:22 Primary care physician: Lalit John MD DS: Diagnosis Discharge Diagnosis (1) CKD (chronic kidney disease): Status: Acute (2) Acute bronchitis: Status: Acute (3) Leukocytosis: Status: Acute DS: Summary Hospital Course Hospital Course: 76-year-old male with past medical history of chronic AFib, CKD, who presents to the hospital with complaints of cough, shortness of breath.? Patient reports that his symptoms started about 1 week ago, persistent cough, he denies any sputum production.patient denies any fever chills, no chest pain, no abdominal pain nausea or vomiting, no diarrhea constipation, no urinary symptoms and no lower extremity edema.? He denies any orthopnea or PND.? He denies any recent immobilization or recent surgery.? Pt reports that he smoked when he was in [employer] to grade 3 but never smoked since then. He has not been diagnosed with COPD in the past On arrival to the ED patient found to have a temperature of 100.8 degrees, otherwise hemodynamically stable Labs are significant for? WBC count of 13.1, hemoglobin of 13.1 which is around his baseline, hematocrit? 40.5, BUN of 42, creatinine of 1.76 which is around his baseline, troponin 49.8 repeat of 35.6, BNP of 241, respiratory viral panel pending ?CT angiogram is negative for segmental PE, no evidence of pneumonia. hopsital course: Patient was admitted for acute bronchitis possibly viral: Patient was given nebs, steroids, blood culture sent: Patient leukocytosis improving, blood culture negative at 24 hours, patient patient is currently back to the baseline. Patient discharged with albuterol and po steroids, continue cough medication. In addition- unclear if the patient has underlying COPD-please consider outpatient pulmonary evaluation. Further management out patiently with PCP. possible ckd stage 3: stable -moniter bmp in rehab 1 week. plan: Please complete the course of steroids and cough medication, continue albuterol in acute phase. Further management outpatient with PCP. possible ckd stage 3: stable -moniter bmp in rehab 1 week. Above management discussed with the patient in detail length he understand and in agreement with the above plan, time spent 50 minutes and 50% time spent on counseling. Significant findings: As above. Procedures performed: None. Treatment and response: As above. Complications: None. Time Spent with Patient Time attestation: Total time spent providing and/or coordinating discharge services: Discharge coordination time: Greater than 30 minutes Quality: Safe Use of Opioids Does Pt have an Active Cancer Diagnosis on the Problem List?: Yes Opioid Measure Date for [facility] Report: 01/14/22 Opioid Measure Time for [facility] Report: 12:21 Quality: Stroke Does the patient have a stroke diagnosis?: No Physical Exam Vital Signs: Vital Signs: Last Vital Signs Temp 98.1 F 02/13/22 11:17 Pulse 72 02/13/22 11:17 Resp 14 02/13/22 11:17 BP 138/80 02/13/22 11:17 Pulse Ox 95 02/13/22 11:17 O2 Del Method 02/13/22 11:17 BMI result Body Mass Index 46.3 ?Appearance: Alert.? Oriented.?sob cvs: rrr, [id number] , no murmur res:? Diminished breath sound, no rales or wheezing abd: no rebound or guarding ,nt, bs present. ext pulses present , no cyanosis . neuro:? nonfocal. DS: Data Data Completed and Pending Labs on day of discharge: Preliminary micro results at discharge 02/11/22 16:47 Blood Culture - Preliminary Blood - Venous No growth after 24 hours. 02/11/22 16:47 Blood Culture - Preliminary Blood - Venous No growth after 24 hours. Additional Comments Additional comments: 02/11/22 02/11/22 02/11/22 ? 16:30 16:47 18:43 MCV ? ? ? MCH ? ? ? MCHC ? ? ? RDW ? ? ? Plt Count ? ? ? MPV ? ? ? Immature Gran % (Auto) ? ? ? Neut % (Auto) ? ? ? Lymph % (Auto) ? ? ? [place] % (Auto) ? ? ? Eos % (Auto) ? ? ? Baso % (Auto) ? ? ? Lymph # (Auto) ? ? ? [place] # (Auto) ? ? ? Eos # (Auto) ? ? ? Baso # (Auto) ? ? ? Abs Immat Gran (auto) ? ? ? Absolute Neuts (auto) ? ? ? Absolute Nucleated RBC ? ? ? Nucleated RBC % (auto) ? ? ? Smear Tech's Comments ? ? ? Anion Gap ? ? ? Estim Creat Clear Calc ? ? ? Estimated GFR ? ? ? Random Glucose ? ? ? Calcium ? ? ? Magnesium ?1.8 ? ? Urine Color ? ? ?Yellow Urine Appearance ? ? ?Clear Urine pH ? ? ?5.5 Ur Specific [place] ? ? ?1.025 Urine Protein ? ? ?Trace Urine Glucose (UA) ? ? ?Negative Urine Ketones ? ? ?Negative Urine Blood ? ? ?Negative Urine Nitrite ? ? ?Negative Ur Leukocyte Esterase ? ? ?Trace H Urine RBC ? ? ?0-2 Urine WBC ? ? ?0-5 Ur Squamous Epith Cells ? ? ?0-2 Urine Bacteria ? ? ?None Seen Hyaline Casts ? ? ?0-2 Respiratory Panel Vargas ? ?See Note ? Adenovirus (Rapid PCR) ? ?Not Detected ? B.pert (TEM-PCR) ? ?Not Detected ? B.parapertussis DNA PCR ? ?Not Detected ? C. pneumoniae DNA (PCR) ? ?Not Detected ? Coronavirus OC43 (PCR) ? ?Not Detected ? Coronavirus HKU1 (PCR) ? ?Not Detected ? Coronavirus 229E (PCR) ? ?Not Detected ? COVID-19 (FAY) ? ? ? COVID-19 Clin Com ? ? ? Coronavirus NL63 (PCR) ? ?Not Detected ? Human Metapneumovir PCR ? ?Not Detected ? Influenza A (RT-PCR) ? ?Not Detected ? Influenza B (RT-PCR) ? ?Not Detected ? M. pneumoniae (PCR) ? ?Not Detected ? Parainfluenza 1 (PCR) ? ?Not Detected ? Parainfluenza 2 (PCR) ? ?Not Detected ? Parainfluenza 3 (PCR) ? ?Not Detected ? Parainfluenza 4 (PCR) ? ?Not Detected ? RSV (PCR) ? ?Not Detected ? Entero/Rhino (PCR) ? ?Not Detected ? SARS-CoV-2 RNA (RT-PCR) ? ?Not Detected ? ? 02/12/22 02/12/22 02/12/22 ? 00:09 04:15 04:15 MCV ? ?83.9 ? MCH ? ?27.8 ? MCHC ? ?33.2 ? RDW ? ?14.4 ? Plt Count ? ?105 L ? MPV ? ?8.9 L ? Immature Gran % (Auto) ? ?0.5 H ? Neut % (Auto) ? ?96.8 H ? Lymph % (Auto) ? ?1.8 L ? [place] % (Auto) ? ?0.7 L ? Eos % (Auto) ? ?0.1 ? Baso % (Auto) ? ?0.1 ? Lymph # (Auto) ? ?0.3 L ? [place] # (Auto) ? ?0.1 ? Eos # (Auto) ? ?0.0 ? Baso # (Auto) ? ?0.0 ? Abs Immat Gran (auto) ? ?0.07 H ? Absolute Neuts (auto) ? ?13.2 H ? Absolute Nucleated RBC ? ?0.000 ? Nucleated RBC % (auto) ? ?0.0 ? Smear Tech's Comments ? ?VERIFIED ? Anion Gap ? ? ?17 Estim Creat Clear Calc ? ? ?70.4 Estimated GFR ? ? ?47 Random Glucose ? ? ?186 H Calcium ? ? ?8.7 Magnesium ? ? ? Urine Color ? ? ? Urine Appearance ? ? ? Urine pH ? ? ? Ur Specific [place] ? ? ? Urine Protein ? ? ? Urine Glucose (UA) ? ? ? Urine Ketones ? ? ? Urine Blood ? ? ? Urine Nitrite ? ? ? Ur Leukocyte Esterase ? ? ? Urine RBC ? ? ? Urine WBC ? ? ? Ur Squamous Epith Cells ? ? ? Urine Bacteria ? ? ? Hyaline Casts ? ? ? Respiratory Panel Vargas ? ? ? Adenovirus (Rapid PCR) ? ? ? B.pert (TEM-PCR) ? ? ? B.parapertussis DNA PCR ? ? ? C. pneumoniae DNA (PCR) ? ? ? Coronavirus OC43 (PCR) ? ? ? Coronavirus HKU1 (PCR) ? ? ? Coronavirus 229E (PCR) ? ? ? COVID-19 (FAY) ?Negative ? ? COVID-19 Clin Com ?See Note ? ? Coronavirus NL63 (PCR) ? ? ? Human Metapneumovir PCR ? ? ? Influenza A (RT-PCR) ? ? ? Influenza B (RT-PCR) ? ? ? M. pneumoniae (PCR) ? ? ? Parainfluenza 1 (PCR) ? ? ? Parainfluenza 2 (PCR) ? ? ? Parainfluenza 3 (PCR) ? ? ? Parainfluenza 4 (PCR) ? ? ? RSV (PCR) ? ? ? Entero/Rhino (PCR) ? ? ? SARS-CoV-2 RNA (RT-PCR) ? ? CT/CT angio chest PE protocol IMPRESSION: ? 1. Limited examination for detection of pulmonary emboli. No central or obvious/large segmental pulmonary embolus. 2. Mild atelectasis. No consolidation or effusions. ? VTE: Negative, limited as above Discharge Plan Discharge Patient Disposition: [facility] Discharge Diagnosis: Acute bronchitis possible viral Referrals: Lalit John MD [Primary Care Provider] - 1 Week Discharge Medications: New docusate sodium 100 mg Capsule 100 mg PO DAILY PRN (Reason: Constipation) Qty: 30 0RF prednisone 20 mg tablet 40 mg PO DAILY Qty: 8 0RF albuterol sulfate 90 mcg/actuation HFA aerosol inhaler 1 inh inhalation QID PRN (Reason: bronchospasm) Qty: 8.5 0RF Continued metoprolol succinate 100 mg Tablet Extended Release 24 Hr 100 mg PO DAILY@0600 Qty: 30 0RF Rx Instructions: TDD = 125 MG magnesium oxide 400 mg (241.3 mg magnesium) Tablet 400 mg PO DAILY@0600 Qty: 30 0RF magnesium hydroxide [Milk of Magnesia] 400 mg/5 mL Suspension 30 ml PO DAILY PRN (Reason: Constipation) Qty: 300 0RF bisacodyl [Gentle Laxative (bisacodyl)] 10 mg Suppository 10 mg AK DAILY PRN (Reason: Constipation) Qty: 30 0RF metoprolol succinate 25 mg Tablet Extended Release 24 Hr 25 mg PO DAILY@0600 Qty: 30 0RF Rx Instructions: TDD = 125 MG acetaminophen 325 mg Tablet 650 mg PO BEDTIME dextromethorphan-guaifenesin 10-100 mg/5 mL Syrup 10 ml PO QID PRN (Reason: Cough) aspirin 81 mg Tablet,Delayed Release (Dr/Ec) 81 mg PO DAILY@0600 ascorbic acid (vitamin C) [Vitamin C] 250 mg Tablet 250 mg PO DAILY@0600 aloe vera 5,000 mg Capsule 20,000 mg PO DAILY@0600 coenzyme Q10 200 mg Capsule 200 mg PO DAILY@0600 vitamin E (dl, acetate) 180 mg (400 unit) Capsule 180 mg PO DAILY@0600 omega 9-[id number]-fish oil [Fish Oil] 1,200 (144-216) mg Capsule 2 cap PO DAILY@0600 Lactobacillus acidoph-L.bulgar [Floranex] 1 million cell Tablet 1 tab PO DAILY Metamucil 3.4 gram/5.4 gram Powder 1 tbsp PO DAILY PRN (Reason: Constipation) Rx Instructions: mix into at least 8 oz of water or juice before administering acetaminophen 325 mg tablet 650 mg PO Q6H PRN (Reason: Pain, Mild (Pain Scale 1-3)/FEVER) Discharge Orders: Discharge Order (Routine); Ordered 02/13/22 Ordered By: Gen Marino Activity on Discharge: As tolerated Stand Alone Forms: Patient Portal Discharge page Care Plan Goals: Patient was admitted for acute bronchitis possibly viral: Patient was given nebs, steroids, blood culture sent: Patient leukocytosis improving, blood culture negative at 24 hours, patient patient is currently back to the baseline. Patient discharged with albuterol and po steroids, continue cough medication. In addition- unclear if the patient has underlying COPD-please consider outpatient pulmonary evaluation. possible ckd 3: stable , moniter bmp in 1 week rehab. Further management out patiently with PCP. Health Concerns: If patient's respiratory his symptoms worsen or new fever -please call to nearest emergency room for further evaluation. Plan of Treatment: Please complete the course of steroids and cough medication, continue albuterol in acute phase. Further management outpatient with PCP. Assessment: As above.
--- NOTE | 2022-02-13 13:06 | MHC.CM.PN ---
Per MD,Patient has been medically cleared for dc to return to the [facility] today at 3PM, via [facility] transport. CM has left a detailed message for Sister/Madyson at [phone], informing her of the dc plan. Per RN Medical Records Field Technician at [facility]/Shania's request, dc summary has been successfully faxed to her at [phone]. IMM addressed this morning.
[2022-02-13 15:26] VITALS: PULSE 76; RESP 18; O2SAT 96
--- NOTE | 2022-02-13 15:36 | MHC.CM.PN ---
Per [facility] Liaison/Mariah, [facility] is working on resolving transportation/ambulance availability (bariatric Patient). CM will follow.
[2022-02-13 17:30] VITALS: BP 166/91; PULSE 78; RESP 16; TEMP 36.7; O2SAT 97
== END 2022-02-13 20:05 | disposition skilled nursing facility (03) ==
LOC: HO.ED 21:13 → HO.EDOVER 22:43
PROVIDERS: Admitting Provider Internal Medicine; Emergency Provider Emergency Medicine; PCP Internal Medicine; Visit Provider Internal Medicine
DX: J20.9 Acute bronchitis, unspecified (principal); D72.829 Elevated white blood cell count, unspecified; R77.8 Other specified abnormalities of plasma proteins; M71.22 Synovial cyst of popliteal space [Baker], left knee; R50.9 Fever, unspecified; R06.02 Shortness of breath; M79.662 Pain in left lower leg; R60.0 Localized edema; N18.30 Chronic kidney disease, stage 3 unspecified; I48.20 Chronic atrial fibrillation, unspecified; E66.01 Morbid (severe) obesity due to excess calories; Z68.42 Body mass index [BMI] 45.0-49.9, adult; Z87.891 Personal history of nicotine dependence; Z79.82 Long term (current) use of aspirin; Z79.899 Other long term (current) drug therapy; Z88.1 Allergy status to other antibiotic agents; Z20.822 Contact with and (suspected) exposure to COVID-19
CPT/HCPCS: 36415; 71045; 71275; 80048; 80053; 81001; 81003; 83605; 83735; 83880; 84484; 85025; 85379; 85610; 87040; 87633; 87635; 93005; 93971; 94640; 96361; 96365; 96366; 96367; 96375; 96376; 99218; 99285; J1956; J2920; J2930; J3370; Q9967

== ENCOUNTER 2022-02-19 06:21 | Outpatient (REF) | payer MEDICARE, MEDICAID, SELFPAY ==
[2022-02-19 08:22] LABS: Anion Gap 15 (12-20); Blood Urea Nitrogen 44 mg/dL (9-16); Calcium 8.7 mg/dL (8.4-10.2); Carbon Dioxide 25 mmol/L (22-29); Chloride 103 mmol/L (96-108); Estimated Glomerular Filt Rate 42; Glucose Fasting 86 mg/dL (60-99); Potassium 4.3 mmol/L (3.3-5.1); Sodium 139 mmol/L (135-145)
== END 2022-02-19 06:22 | disposition home or self-care (01) ==
LOC: HO.HSH4E 06:21
PROVIDERS: Visit Provider Internal Medicine
DX: N18.9 Chronic kidney disease, unspecified (principal)
CPT/HCPCS: 36415; 80048

== ENCOUNTER → 2022-04-03 08:18 | Outpatient (REF) | payer MEDICARE, MEDICAID, SELFPAY ==
--- NOTE | 2022-04-03 08:23 | CA_ITS ---
Transthoracic Echocardiogram Patient (Last, First, Middle): Miguel Ángel Bates T Gender: Male Date of : 1945 Age: 76 Procedure Date: 04/03/2022 Procedure Type: Transthoracic Echocardiogram Location: OP Height: 175.26 cm Weight: 163.3 kg BSA: 2.65 m2 Heart Rate: bpm BP: 104 / 68 mmHg Pearl Hand: SB Referring MD: Lalit John MD Health And Wellness Manager: Nate Ronquillo MD Symptoms: SOB Study Quality: Technically Difficult/BSA/Contrast ECG Rhythm: Atrial Fibrillation Conclusions: - 1. Technically limited study despite use of contrast agent 2. Hyperdynamic LV systolic function with LVEF of greater than 70% with mild asymmetric septal hypertrophy 3. Limited visualization of cardiac valves with normal cardiac valvular Doppler 4. Normal RV systolic pressure Findings Procedure Information Contrast agent, definity, is being given per protocol without apparent complications. Left Ventricle Normal left ventricular cavity size. There is normal left ventricular wall thickness. The left ventricular systolic function is hyperdynamic. The visually estimated ejection fraction is >70%. Diastolic function is indeterminate on the basis of available data. There is mild septal asymmetric hypertrophy. Right Ventricle The right ventricle was not well visualized. Atria The left atrium was not well visualized. Interatrial shunt cannot be excluded. The right atrium was not well visualized. Aortic Valve The aortic valve was not well visualized. There is no aortic valve stenosis. There is no aortic valve regurgitation. Mitral Valve The mitral valve was not well visualized. There is trace mitral valve regurgitation. There is no mitral valve stenosis. Pulmonic Valve The pulmonic valve was not well visualized. Tricuspid Valve The tricuspid valve was not well visualized. There is trace tricuspid valve regurgitation. The right ventricular systolic pressure is normal. There is no evidence of pulmonary hypertension. Great Vessels The aorta was not well visualized. The pulmonary artery was not well visualized. Venous The inferior vena cava was not well visualized. Pericardium/Pleural The pericardium was not well visualized. Prior Study Comparison No prior study available for comparison. Measurements 2D Linear Measurements IVSd: 1.37 0.6-0.9/0.6-1.0 cm LVIDd: 4.48 3.9-5.3/4.2-5.9 cm LVIDd Index: 1.69 2.4-3.2/2.2-3.1 cm/m2 LVIDs: 3.07 2.0-3.6 cm LVPWd: 0.92 0.7-1.1 cm LA Diam: 3.90 2.7-3.8/3.0-4.0 cm LAIDs Index: 1.47 1.5-2.3 cm/m2 LV Mass: 228.47 67-162/88-224 g LV Mass Index: 86.22 43-95/49-115 g/m2 LVOT Diam: 2.40 3.0+(-)1.3 cm 2D Systolic Function EF 4C: 75.80 >55% EF 2C: 68.90 >55% EF BiP: 71.00 >55% Mitral Valve MV Pk E: 0.83 E'Lateral: 10.30 E/E' Lat: 8.00 Aortic Valve AoV Pk Murray: 1.94 AoV Mn Murray: 1.36 AoV VTI: 0.31 AoV Pk Grad: 15.00 Aov Mn Grad: 9.00 LE Cont.VTI: 2.13 LVOT LVOT Pk Murray: 0.89 LVOT Mn Murray: 0.62 LVOT VTI: 0.15 LVOT Pk Grad: 3.00 LVOT Mn Grad: 2.00 LVOT Diam: 2.40 LVOT Area: 4.52 Diastolic Function MV Pk E: 0.83 E' Laterial: 10.30 E/E' Lat: 8.00 Right Ventricle TAPSE (mm): 11.60 TVS' Murray: 7.45 Tricuspid Valve TR Pk Murray: 2.36 TR Pk Grad: 22.00 RA Press: 3.00 RVSP: 25.00 Great Vessels Aorta Sinus of Valsalva: 3.60 2.0-3.5 cm Ao Asc: 3.40 2.1-3.4 cm Pulmonary Valve PV Pk Murray: 1.15 Peak PV Grad: 5.00 Updated in Other Vendor System with Status of Final Nate Ronquillo MD electronically signed on 04/04/2022 11:45:00 AM with status of Final
== END ==
LOC: HO.CARD 08:18
PROVIDERS: PCP Internal Medicine; Visit Provider Internal Medicine
DX: I50.1 Left ventricular failure, unspecified (principal)
CPT/HCPCS: 93306; Q9957

== ENCOUNTER 2022-04-09 06:03 | Outpatient (REF) | payer MEDICARE, MEDICAID, SELFPAY | END 2022-04-09 06:04 | disposition home or self-care (01) | LOC: HO.HSH4E 06:03 | PROVIDERS: Visit Provider Internal Medicine | DX: E66.01 Morbid (severe) obesity due to excess calories (principal) | CPT/HCPCS: 36415; 84443 ==

== ENCOUNTER 2022-04-23 13:13 | Outpatient (REF) | payer MEDICARE, MEDICAID, SELFPAY ==
[2022-04-23 15:05] LABS: Creatinine Urine 48.51 mg/dL; Microalbum/Creatinine Ratio Ur 22.6 ug/mg cr
== END 2022-04-23 13:14 | disposition home or self-care (01) ==
LOC: HO.HSH4E 13:13
PROVIDERS: Visit Provider Internal Medicine
DX: N18.9 Chronic kidney disease, unspecified (principal)
CPT/HCPCS: 82043; 86335

== ENCOUNTER 2022-04-24 05:56 | Outpatient (REF) | payer MEDICARE, MEDICAID, SELFPAY ==
[2022-04-24 07:42] LABS: MANUAL DIFF FLAG NO
[2022-04-24 07:44] LABS: Basophils Percent Auto 0.2 % (0-2); Eosinophils Absolute Auto 0.1 X10*3/uL (0.0-0.4); Eosinophils Percent Auto 2.2 % (0-4); Hemoglobin 13.1 g/dl (14.0-18.0); Imm Gran Abs Auto 0.01 X10*3/uL (0.00-0.03); Imm Gran Pct Auto 0.2 % (0.0-0.4); Lymphocytes Absolute Auto 1.2 X10*3/uL (1.2-4.9); Lymphocytes Percent Auto 20.4 % (20-40); Mean Corpuscular HGB Conc 32.8 g/dl (31.0-36.0); Mean Corpuscular Hemoglobin 27.2 pg (27.0-33.0); Mean Corpuscular Volume 83.2 fL (80.0-98.0); Mean Platelet Volume 9.2 fL (9.4-12.4); Monocytes Absolute Auto 0.6 X10*3/uL (0.1-1.2); Monocytes Percent Auto 9.6 % (2-11); Neutrophils Percent Auto 67.4 % (45-73); Platelet Count 120 X10*3/uL (160-400); Red Blood Count 4.81 X10*6/uL (4.60-5.80); Red Cell Distribution Width 14.7 % (11.0-16.0); Retic HGB Equivalent 32.3 pg (30.0-35.0); Reticulocyte Percent 1.6 % (0.5-1.8); Reticulocytes Absolute 0.075 X10*6/uL (0.026-0.095); White Blood Count 5.9 X10*3/uL (4.8-10.8)
[2022-04-24 08:28] LABS: Alanine Aminotransferase 33 U/L (0-40); Albumin Level 3.6 g/dL (3.5-5.0); Alkaline Phosphatase 43 U/L (39-117); Anion Gap 12 (12-20); Aspartate Amino Transferase 19 U/L (5-37); Bilirubin Total 0.8 mg/dL (0.0-1.0); Blood Urea Nitrogen 40 mg/dL (9-16); Calcium 9.5 mg/dL (8.4-10.2); Carbon Dioxide 28 mmol/L (22-29); Chloride 102 mmol/L (96-108); Estimated Glomerular Filt Rate 47; Glucose Fasting 83 mg/dL (60-99); Iron 84 mcg/dL (45-160); Percent Iron Saturation 30 % (15-50); Potassium 4.2 mmol/L (3.3-5.1); Sodium 138 mmol/L (135-145); Total Iron Binding Capacity 282 mcg/dL (228-428); Total Protein 5.4 g/dL (6.5-8.0); Unsaturated Iron Binding 198 ug/dL
[2022-04-24 08:38] LABS: Vitamin B12 271 pg/mL (200-900)
[2022-04-24 09:30] LABS: Ferritin 407 ng/mL (20-250)
[2022-04-26 13:44] LABS: PTHI 103 pg/mL (16-77)
== END 2022-04-24 05:57 | disposition home or self-care (01) ==
LOC: HO.HSH4E 05:56
PROVIDERS: Visit Provider Internal Medicine
DX: N18.9 Chronic kidney disease, unspecified (principal); D64.9 Anemia, unspecified
CPT/HCPCS: 36415; 80053; 82607; 82728; 82746; 83540; 83970; 85025; 85045

== ENCOUNTER 2022-05-01 05:55 | Outpatient (REF) | payer MEDICARE, MEDICAID, SELFPAY ==
[2022-05-01 08:25] LABS: MANUAL DIFF FLAG NO
[2022-05-01 08:31] LABS: Basophils Percent Auto 0.4 % (0-2); Eosinophils Absolute Auto 0.1 X10*3/uL (0.0-0.4); Eosinophils Percent Auto 1.9 % (0-4); Hematocrit 42.8 % (42.0-52.0); Hemoglobin 13.9 g/dl (14.0-18.0); Imm Gran Abs Auto 0.02 X10*3/uL (0.00-0.03); Imm Gran Pct Auto 0.3 % (0.0-0.4); Lymphocytes Absolute Auto 1.7 X10*3/uL (1.2-4.9); Mean Corpuscular HGB Conc 32.5 g/dl (31.0-36.0); Mean Corpuscular Hemoglobin 27.7 pg (27.0-33.0); Mean Corpuscular Volume 85.4 fL (80.0-98.0); Mean Platelet Volume 9.4 fL (9.4-12.4); Monocytes Absolute Auto 0.5 X10*3/uL (0.1-1.2); Monocytes Percent Auto 7.7 % (2-11); Neutrophils Absolute Auto 4.5 x10*3/uL (2.0-8.3); Neutrophils Percent Auto 64.7 % (45-73); Platelet Count 153 X10*3/uL (160-400); Red Blood Count 5.01 X10*6/uL (4.60-5.80); Red Cell Distribution Width 15.1 % (11.0-16.0)
== END 2022-05-01 05:56 | disposition home or self-care (01) ==
LOC: HO.HSH4E 05:55
PROVIDERS: Visit Provider Internal Medicine
DX: D64.9 Anemia, unspecified (principal)
CPT/HCPCS: 36415; 85025

== ENCOUNTER 2022-05-22 14:02 | Outpatient (REF) | payer MEDICARE, MEDICAID, SELFPAY ==
[2022-05-22 14:20] LABS: MANUAL DIFF FLAG NO
[2022-05-22 14:22] LABS: Basophils Percent Auto 0.3 % (0-2); Eosinophils Absolute Auto 0.1 X10*3/uL (0.0-0.4); Eosinophils Percent Auto 0.8 % (0-4); Hematocrit 35.1 % (42.0-52.0); Imm Gran Abs Auto 0.04 X10*3/uL (0.00-0.03); Imm Gran Pct Auto 0.5 % (0.0-0.4); Lymphocytes Absolute Auto 1.2 X10*3/uL (1.2-4.9); Lymphocytes Percent Auto 15.3 % (20-40); Mean Corpuscular HGB Conc 31.3 g/dl (31.0-36.0); Mean Corpuscular Hemoglobin 27.2 pg (27.0-33.0); Mean Corpuscular Volume 86.9 fL (80.0-98.0); Mean Platelet Volume 9.5 fL (9.4-12.4); Monocytes Absolute Auto 0.9 X10*3/uL (0.1-1.2); Monocytes Percent Auto 11.9 % (2-11); Neutrophils Absolute Auto 5.6 x10*3/uL (2.0-8.3); Neutrophils Percent Auto 71.2 % (45-73); Platelet Count 166 X10*3/uL (160-400); Red Blood Count 4.04 X10*6/uL (4.60-5.80); Red Cell Distribution Width 16.3 % (11.0-16.0); White Blood Count 7.9 X10*3/uL (4.8-10.8)
[2022-05-22 14:44] LABS: Anion Gap 14 (12-20); Blood Urea Nitrogen 39 mg/dL (9-16); Calcium 8.8 mg/dL (8.4-10.2); Carbon Dioxide 25 mmol/L (22-29); Chloride 105 mmol/L (96-108); Estimated Glomerular Filt Rate 46; Glucose Random 86 mg/dL (60-115); Potassium 4.8 mmol/L (3.3-5.1); Sodium 139 mmol/L (135-145)
[2022-05-22 14:46] LABS: B Type Natriuretic Peptide 130 pg/mL (<100)
== END 2022-05-22 14:03 | disposition home or self-care (01) ==
LOC: HO.HSH4E 14:02
PROVIDERS: Visit Provider Internal Medicine
DX: I50.9 Heart failure, unspecified (principal); N18.9 Chronic kidney disease, unspecified; J40 Bronchitis, not specified as acute or chronic
CPT/HCPCS: 36415; 80048; 83880; 85025

== ENCOUNTER 2022-05-30 05:26 | Outpatient (REF) | payer MEDICARE, MEDICAID, SELFPAY ==
[2022-05-30 06:10] LABS: Anion Gap 12 (12-20); Blood Urea Nitrogen 37 mg/dL (9-16); Calcium 8.3 mg/dL (8.4-10.2); Carbon Dioxide 26 mmol/L (22-29); Chloride 107 mmol/L (96-108); Estimated Glomerular Filt Rate 47; Glucose Fasting 92 mg/dL (60-99); Potassium 4.3 mmol/L (3.3-5.1); Sodium 141 mmol/L (135-145)
== END 2022-05-30 05:27 | disposition home or self-care (01) ==
LOC: HO.HSH4E 05:26
PROVIDERS: Visit Provider Internal Medicine
DX: I50.9 Heart failure, unspecified (principal)
CPT/HCPCS: 36415; 80048

== ENCOUNTER 2022-06-03 15:08 | Inpatient (IN) | payer OTHER, SELFPAY ==
[2022-06-03] VITALS (7 sets, daily range): BP systolic 100–138; BP diastolic 46–70; PULSE 62–75; RESP 17–23; TEMP 36.7–36.9; O2SAT 96–99; BMI 56.5; BMI 53.1
--- NOTE | ~2022-06-03 | XR_ITS ---
EXAMINATION: XR CHEST CLINICAL INFORMATION: Hypotension COMPARISON: 02/11/2022 TECHNIQUE: Frontal view of the chest was obtained. FINDINGS: Lungs are adequately expanded and without evidence of acute disease. No pulmonary consolidation, edema or pleural effusion. No pneumothorax. Cardiac silhouette is normal in size. Pulmonary vascular pattern is normal. 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 XR/XR chest 1V IMPRESSION: No acute pulmonary disease compared to 02/11/2022.
--- NOTE | ~2022-06-03 | NM_ITS ---
EXAMINATION: PULMONARY PERFUSION STUDY CLINICAL INFORMATION: DVT. COMPARISON: No previous lung scan is available for comparison. A radiograph the chest dated 06/03/2022 is available for comparison. TECHNIQUE: Following the intravenous injection of 4.0 mCi Tc-99m MAA, the lungs were imaged in the anterior and posterior, left and right lateral and LINDSEY, GOLDSMITH, LPO, and RPO projections using a gamma scintillation camera. FINDINGS: No segmental perfusion defects are present. There is homogeneous distribution of activity bilaterally. There are no focal anatomic appearing perfusion defects present. The cardiac silhouette and mediastinum appear dilated. NM/NM pul perfusion IMPRESSION: Very low probability of pulmonary embolism.
--- NOTE | ~2022-06-03 | US_ITS ---
EXAMINATION: US VENOUS ULTRASOUND WITH DOPPLER LOWER EXTREMITY, BILATERAL CLINICAL INFORMATION: Worsening pain and swelling. History of DVTs. COMPARISON: Left lower extremity venous ultrasound 02/11/2022 TECHNIQUE: Ultrasound of the deep veins is performed from the hip to the calf with compression sonography and color and pulse Doppler assessment. Spectral analysis with color-flow imaging is performed. FINDINGS: RIGHT: There is normal venous compression and respiratory variation and augmented flow. The visualized common femoral vein, superficial femoral vein, profunda femoral vein, popliteal vein, and the trifurcation region shows no evidence of deep venous thrombosis. There is a small potential cyst measuring approximately 4.4 x 0.8 cm in size. LEFT: Echogenic noncompressible thrombus in the left common femoral and throughout the superficial femoral vein and popliteal vein. Visualized major saphenous vein appears patent. There is a septated popliteal cyst measuring 3.9 x 2.5 x 2.7 cm in size. US/US venous duplex LE BI IMPRESSION: 1. Exam positive for left lower extremity DVT involving the common femoral, superficial femoral and popliteal veins. 2. No right lower extremity DVT. 3. Bilateral popliteal cysts. This critical result was discussed with Dr. Luci Davila at 7:13 PM on 06/03/2022 and it was ascertained that the content and urgency of the report was understood at the time of direct communication.
--- NOTE | 2022-06-03 15:24 | ECG_ITS ---
Test Reason : LETHARGIC Blood Pressure : / mmHG Vent. Rate : 061 BPM Atrial Rate : 000 BPM P-R Int : 000 ms QRS Dur : 114 ms QT Int : 406 ms P-R-T Axes : 000 -54 -63 degrees QTc Int : 408 ms Atrial fibrillation Left anterior fascicular block Moderate voltage criteria for LVH, may be normal variant ( R in aVL , Felicity product ) Septal infarct (cited on or before 11-FEB-2022) ST & T wave abnormality, consider inferolateral ischemia Abnormal ECG When compared with ECG of 11-FEB-2022 16:30, Right bundle branch block is no longer Present Questionable change in initial forces of Septal leads QT has shortened Referred By: Luci Davila Electronically Signed By:Alex Vega
--- NOTE | 2022-06-03 15:38 | ED_ITS ---
HPI - General Adult General Chief complaint: Altered Mental Status Stated complaint: [facility] PER EMS Time Seen by Provider: 06/03/22 15:24 Source: patient and EMS Mode of arrival: EMS Limitations: no limitations History of Present Illness HPI narrative: Patient comes to the emergency room from [facility] via ambulance. Patient is poor historian. According to the staff, patient seems more lethargic today than baseline. Patient states that everything hurts. However, he denies chest pain or abdominal pain. Patient denies shortness of breath. Per EMS, initial blood pressure was in the low 80s, given 500 mL of IV normal saline, on arrival to the ED, blood pressure 104 systolic. Related Data Home Medications Medication Instructions Recorded Confirmed Lactobacillus acidoph-L.bulgaricus 1 tab PO DAILY 02/11/22 02/11/22 1 million cell tablet (Floranex) acetaminophen 325 mg tablet 650 mg PO BEDTIME 02/11/22 02/11/22 acetaminophen 325 mg tablet 650 mg PO Q6H PRN Pain, Mild (Pain 02/11/22 02/11/22 Scale 1-3)/FEVER aloe vera 5,000 mg capsule 20,000 mg PO DAILY@59902/11/22 02/11/22 ascorbic acid (vitamin C) 250 mg 250 mg PO DAILY@59902/11/22 02/11/22 tablet (Vitamin C) aspirin 81 mg tablet,delayed 81 mg PO DAILY@59902/11/22 02/11/22 release coenzyme Q10 200 mg capsule 200 mg PO DAILY@59902/11/22 02/11/22 dextromethorphan-guaifenesin 10 10 ml PO QID PRN Cough 02/11/22 02/11/22 mg-100 mg/5 mL oral syrup omega 2-sxh-dwu-fish oil 1,200 mg 2 cap PO DAILY@59902/11/22 02/11/22 (144 mg-216 mg) capsule (Fish Oil) psyllium husk 3.4 gram/5.4 gram 1 tbsp PO DAILY PRN Constipation 02/11/22 02/11/22 oral powder (Metamucil) vitamin E (dl, acetate) 180 mg 180 mg PO DAILY@59902/11/22 02/11/22 (400 unit) capsule Previous Rx's Medication Instructions Recorded bisacodyl 10 mg rectal suppository 10 mg RI DAILY PRN Constipation 06/05/20 (Gentle Laxative (bisacodyl)) #30 ea magnesium hydroxide 400 mg/5 mL 30 ml PO DAILY PRN Constipation 06/05/20 oral suspension (Milk of Magnesia) #300 mL magnesium oxide 400 mg (241.3 mg 400 mg PO DAILY@0600 #30 tabs 06/05/20 magnesium) tablet metoprolol succinate 100 mg 100 mg PO DAILY@0600 #30 tabs 06/05/20 tablet,extended release 24 hr metoprolol succinate 25 mg 25 mg PO DAILY@0600 #30 tabs 06/05/20 tablet,extended release 24 hr albuterol sulfate 90 mcg/actuation 1 inh inhalation QID PRN 02/13/22 aerosol inhaler bronchospasm #8.5 grams docusate sodium 100 mg capsule 100 mg PO DAILY PRN Constipation 02/13/22 #30 caps prednisone 20 mg tablet 40 mg PO DAILY #8 tabs 02/13/22 Allergies Allergy/AdvReac Type Severity Reaction Status Date / Time cephalexin [From KEFLEX] Allergy Unknown UNKNOWN Verified 02/11/22 16:32 meropenem [MEROPENEM] Allergy Unknown UNKNOWN Verified 05/24/20 03:36 Penicillins [PENICILLINS] Allergy Unknown UNKNOWN Verified 05/24/20 03:36 sulfamethoxazole Allergy Unknown UNKNOWN Verified 05/24/20 03:36 [From BACTRIM] trimethoprim [From BACTRIM] Allergy Unknown UNKNOWN Verified 05/24/20 03:36 Review of Systems Review of Systems: Patient says everything hurts, yet denies chest pain or shortness of breath, no abdominal pain Yes Other (Poor historian) [facility] Past Medical History Medical History Anemia, unspecified B-cell lymphoma Chronic a-fib COPD (chronic obstructive pulmonary disease) Dermatitis Edema Hammer toes of both feet Hearing loss Impaired fasting glucose Mild cognitive impairment Morbid obesity Nail dystrophy Osteoarthritis Pain in right shoulder Stage 3 chronic kidney disease Unspecified atherosclerosis of [place] arteries of extremities, bilateral legs Surgical History No pertinent past surgical history Family History Family History Other No family history of coronary artery disease Social History Social History Alcohol intake: never Patient Tobacco Use Status: Former Tobacco user Tobacco use type: Cigarette Advance Directives: Yes Advance Directives on File: Yes Advance Directives Date on File: 02/11/22 service: Yes Current occupational status: retired Physical Exam ED Vital Signs: Vital Signs - 24 hr 06/03/22 15:45 06/03/22 15:53 06/03/22 16:20 Temperature 98.5 F Pulse Rate 70 62 65 Respiratory Rate 23 H 21 H Blood Pressure 118/46 L 100/65 105/49 L Pulse Oximetry 96 96 99 Oxygen Delivery Method Room Air Room Air 06/03/22 17:03 06/03/22 18:33 Temperature Pulse Rate 70 73 Respiratory Rate 19 22 H Blood Pressure 114/52 L 120/63 Pulse Oximetry 98 97 Oxygen Delivery Method Room Air BMI result Body Mass Index 53.1 Const Other: Appearance: Alert. Oriented X2. No acute distress. Eyes: Pupils equal, round and reactive to light. ENT: Pharynx normal. Mildly dry oral mucosa/tongue Neck: Normal inspection. Neck supple. No lymph nodes noted. No crepitus CVS: Normal heart rate and rhythm. Pulses normal. Normal S1 and S2 Respiratory: No respiratory distress. Breath sounds normal. No Wheezing. No rales Abdomen: Soft and nontender. No rigidity. No distention. Skin: Skin warm and dry. Normal skin color. Normal skin turgor. Extremities: Bilateral chronic venous stasis, worse on the right lower extremity, +3 pitting edema bilaterally, pain to palpation in the calfs, mild erythema in the right lower extremity between the ankle and the knee Neuro: Oriented X 2. No motor deficit. No sensory deficit. Moving all extremities. No slurred speech. CN 2 through 12 grossly intact Psych: calm, cooperative, normal affect Course Course Course Narrative: At this time, 16:35, results are back, patient's white blood cell count is 29.7, lactic acid within normal limits. No fever, 1 episode of hypotension reported by EMS, no hypotension in the ED. patient has been given 3 L of normal saline bolus, patient's ideal weight is 77 kg, patient is obese. We are waiting for the urinalysis. Patient has not being able to urinate, says he does not feel like he needs to urinate yet. Patient declines being straight cathed, Chest x- ray pending Medications Administered Discontinued Medications Generic Name Dose Route Start Last Admin Trade Name Pete PRN Reason Stop Dose Admin Sodium Chloride 2,000 mls @ 999 mls/hr 06/03/22 15:24 06/03/22 17:27 Ns IVCONT 06/03/22 17:24 Infused .Q2H1M ONE Infusion Sodium Chloride 1,000 mls @ 999 mls/hr 06/03/22 16:36 06/03/22 18:04 Ns IVCONT 06/03/22 17:36 Infused .Q1H1M ONE Infusion Piperacillin Sod/Tazobactam 50 mls @ 100 mls/hr 06/03/22 16:39 06/03/22 17:18 Sod 3.375 gm/ Sodium Chloride IV 06/03/22 17:08 Infused ONCE ONE Infusion Vancomycin HCl 2,000 mg/ 540 mls @ 270 mls/hr 06/03/22 16:39 06/03/22 17:21 Sodium Chloride IV 06/03/22 18:38 270 mls/hr ONCE ONE Administration Medical Decision Making Medical Decision Making [facility] Narrative: Chest x-ray negative for pneumonia, urinalysis negative. Source of infection is likely secondary to cellulitis of the right lower extremity. Left lower extremity is positive for DVT. Started on Eliquis 10 mg p.o.. Patient denies chest pain or shortness of breath, blood pressure has been above 100 since patient arrived in the emergency room, currently 120/63. Lactic acid within normal limits, no episodes of hypotension in the emergency room. Sepsis is not suspected Differential Diagnosis Differential Diagnoses: The differential diagnosis associated with the presentation includes (Cellulitis, chronic venous stasis, DVT) Admission/Observation Consideration of admission/observation: Escalation of care including admission/observation considered (Patient will be admitted for cellulitis, acute on chronic kidney disease, new onset DVT) Consult Healthcare Provider Management of the patient was discussed with: Hospitalist (I discussed the patient with Dr. Nixon, pt being admitted) Lab Data [facility] Lab Attestation statement: I reviewed the patient's lab results. 06/03/22 15:28 06/03/22 15:28 Labs: Lab Results 06/03/22 06/03/22 06/03/22 Range/Units 15:28 15:28 15:28 WBC 29.7 H (4.8-10.8) X10*3/uL RBC 4.61 (4.60-5.80) X10*6/uL Hgb 12.7 L (14.0-18.0) g/dl Hct 39.8 L (42.0-52.0) % MCV 86.3 (80.0-98.0) fL MCH 27.5 (27.0-33.0) pg MCHC 31.9 (31.0-36.0) g/dl RDW 15.9 (11.0-16.0) % Plt Count 133 L (160-400) X10*3/uL MPV 9.3 L (9.4-12.4) fL Immature Gran % (Auto) 1.6 H (0.0-0.4) % Neut % (Auto) 91.4 H (45-73) % Lymph % (Auto) 1.4 L (20-40) % Cross % (Auto) 5.3 (2-11) % Eos % (Auto) 0.1 (0-4) % Baso % (Auto) 0.2 (0-2) % Lymph # (Auto) 0.4 L (1.2-4.9) X10*3/uL Cross # (Auto) 1.6 H (0.1-1.2) X10*3/uL Eos # (Auto) 0.0 (0.0-0.4) X10*3/uL Baso # (Auto) 0.1 (0.0-0.2) X10*3/uL Abs Immat Gran (auto) 0.49 H (0.00-0.03) X10*3/uL Absolute Neuts (auto) 27.2 H (2.0-8.3) x10*3/uL Absolute Nucleated RBC 0.000 (0.0-0.012) X10*3/uL Nucleated RBC % (auto) 0.0 (0.0-0.2) /100WBC Smear Tech's Comments VERIFIED PT (10.0-13.1) SEC INR (0.9-1.1) Sodium 137 (135-145) mmol/L Potassium 4.9 (3.3-5.1) mmol/L Chloride 102 (96-108) mmol/L Carbon Dioxide 24 (22-29) mmol/L Anion Gap 16 (12-20) BUN 48 H (9-16) mg/dL Creatinine 2.33 H (0.5-1.4) mg/dL Estim Creat Clear Calc 43.6 Estimated GFR 27 Random Glucose 203 H (60-115) mg/dL Fasting Glucose 205 H (60-99) mg/dL Lactic Acid 1.8 (0.5-2.0) mmol/L Calcium 8.6 (8.4-10.2) mg/dL Magnesium 1.9 (1.6-2.6) mg/dL Total Bilirubin 1.0 (0.0-1.0) mg/dL Direct Bilirubin 0.3 (0.0-0.5) mg/dL AST 19 (5-37) U/L ALT 24 (0-40) U/L Alkaline Phosphatase 46 (39-117) U/L Troponin I High Sens (<3.5-35.0) ng/L B-Natriuretic Peptide (<100) pg/mL Total Protein 5.2 L (6.5-8.0) g/dL Albumin 3.4 L (3.5-5.0) g/dL Lipase 11 (8-78) U/L TSH 1.05 (0.32-4.0) uIU/mL Urine Color Urine Appearance Urine pH (5.0-9.0) Ur Specific [place] (1.005-1.025) Urine Protein (Neg-Trace) mg/dL Urine Glucose (UA) (Negative) mg/dL Urine Ketones (Negative) mg/dL Urine Blood (Negative) Urine Nitrite (Negative) Ur Leukocyte Esterase (Negative) COVID-19 (FAY) (Negative) COVID-19 Clin Com Influenza Type A (MELYSSA) (Negative) Influenza Type B (MELYSSA) (Negative) Influenza A & B Note 06/03/22 06/03/22 06/03/22 Range/Units 15:28 15:28 15:32 WBC (4.8-10.8) X10*3/uL RBC (4.60-5.80) X10*6/uL Hgb (14.0-18.0) g/dl Hct (42.0-52.0) % MCV (80.0-98.0) fL MCH (27.0-33.0) pg MCHC (31.0-36.0) g/dl RDW (11.0-16.0) % Plt Count (160-400) X10*3/uL MPV (9.4-12.4) fL Immature Gran % (Auto) (0.0-0.4) % Neut % (Auto) (45-73) % Lymph % (Auto) (20-40) % Cross % (Auto) (2-11) % Eos % (Auto) (0-4) % Baso % (Auto) (0-2) % Lymph # (Auto) (1.2-4.9) X10*3/uL Cross # (Auto) (0.1-1.2) X10*3/uL Eos # (Auto) (0.0-0.4) X10*3/uL Baso # (Auto) (0.0-0.2) X10*3/uL Abs Immat Gran (auto) (0.00-0.03) X10*3/uL Absolute Neuts (auto) (2.0-8.3) x10*3/uL Absolute Nucleated RBC (0.0-0.012) X10*3/uL Nucleated RBC % (auto) (0.0-0.2) /100WBC Smear Tech's Comments PT 12.2 (10.0-13.1) SEC INR 1.1 (0.9-1.1) Sodium (135-145) mmol/L Potassium (3.3-5.1) mmol/L Chloride (96-108) mmol/L Carbon Dioxide (22-29) mmol/L Anion Gap (12-20) BUN (9-16) mg/dL Creatinine (0.5-1.4) mg/dL Estim Creat Clear Calc Estimated GFR Random Glucose (60-115) mg/dL Fasting Glucose (60-99) mg/dL Lactic Acid (0.5-2.0) mmol/L Calcium (8.4-10.2) mg/dL Magnesium (1.6-2.6) mg/dL Total Bilirubin (0.0-1.0) mg/dL Direct Bilirubin (0.0-0.5) mg/dL AST (5-37) U/L ALT (0-40) U/L Alkaline Phosphatase (39-117) U/L Troponin I High Sens 39.9 H (<3.5-35.0) ng/L B-Natriuretic Peptide 147 H (<100) pg/mL Total Protein (6.5-8.0) g/dL Albumin (3.5-5.0) g/dL Lipase (8-78) U/L TSH (0.32-4.0) uIU/mL Urine Color Urine Appearance Urine pH (5.0-9.0) Ur Specific [place] (1.005-1.025) Urine Protein (Neg-Trace) mg/dL Urine Glucose (UA) (Negative) mg/dL Urine Ketones (Negative) mg/dL Urine Blood (Negative) Urine Nitrite (Negative) Ur Leukocyte Esterase (Negative) COVID-19 (FAY) (Negative) COVID-19 Clin Com Influenza Type A (MELYSSA) (Negative) Influenza Type B (MELYSSA) (Negative) Influenza A & B Note 06/03/22 06/03/22 06/03/22 Range/Units 15:40 15:40 19:09 WBC (4.8-10.8) X10*3/uL RBC (4.60-5.80) X10*6/uL Hgb (14.0-18.0) g/dl Hct (42.0-52.0) % MCV (80.0-98.0) fL MCH (27.0-33.0) pg MCHC (31.0-36.0) g/dl RDW (11.0-16.0) % Plt Count (160-400) X10*3/uL MPV (9.4-12.4) fL Immature Gran % (Auto) (0.0-0.4) % Neut % (Auto) (45-73) % Lymph % (Auto) (20-40) % Cross % (Auto) (2-11) % Eos % (Auto) (0-4) % Baso % (Auto) (0-2) % Lymph # (Auto) (1.2-4.9) X10*3/uL Cross # (Auto) (0.1-1.2) X10*3/uL Eos # (Auto) (0.0-0.4) X10*3/uL Baso # (Auto) (0.0-0.2) X10*3/uL Abs Immat Gran (auto) (0.00-0.03) X10*3/uL Absolute Neuts (auto) (2.0-8.3) x10*3/uL Absolute Nucleated RBC (0.0-0.012) X10*3/uL Nucleated RBC % (auto) (0.0-0.2) /100WBC Smear Tech's Comments PT (10.0-13.1) SEC INR (0.9-1.1) Sodium (135-145) mmol/L Potassium (3.3-5.1) mmol/L Chloride (96-108) mmol/L Carbon Dioxide (22-29) mmol/L Anion Gap (12-20) BUN (9-16) mg/dL Creatinine (0.5-1.4) mg/dL Estim Creat Clear Calc Estimated GFR Random Glucose (60-115) mg/dL Fasting Glucose (60-99) mg/dL Lactic Acid (0.5-2.0) mmol/L Calcium (8.4-10.2) mg/dL Magnesium (1.6-2.6) mg/dL Total Bilirubin (0.0-1.0) mg/dL Direct Bilirubin (0.0-0.5) mg/dL AST (5-37) U/L ALT (0-40) U/L Alkaline Phosphatase (39-117) U/L Troponin I High Sens (<3.5-35.0) ng/L B-Natriuretic Peptide (<100) pg/mL Total Protein (6.5-8.0) g/dL Albumin (3.5-5.0) g/dL Lipase (8-78) U/L TSH (0.32-4.0) uIU/mL Urine Color Yellow Urine Appearance Clear Urine pH 6.0 (5.0-9.0) Ur Specific [place] 1.015 (1.005-1.025) Urine Protein Negative (Neg-Trace) mg/dL Urine Glucose (UA) Negative (Negative) mg/dL Urine Ketones Negative (Negative) mg/dL Urine Blood Negative (Negative) Urine Nitrite Negative (Negative) Ur Leukocyte Esterase Negative (Negative) COVID-19 (FAY) Negative (Negative) COVID-19 Clin Com See Note Influenza Type A (MELYSSA) Negative (Negative) Influenza Type B (MELYSSA) Negative (Negative) Influenza A & B Note See Note Independent Interpretation I performed an independent interpretation of an: Plain X-Ray (Possible pneumonia in right middle lobe, unclear.) Radiology Impression Discussion of test interpretation with radiology: I have reviewed the radiolo gist's reading. (FINDINGS: Lungs are adequately expanded and without evidence of acute disease. No pulmonary consolidation, edema or pleural effusion. No pneumothorax. Cardiac silhouette is normal in size. Pulmonary vascular pattern is normal. 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 O) Radiologist Impression: RIGHT: There is normal venous compression and respiratory variation and augmented flow. The visualized common femoral vein, superficial femoral vein, profunda femoral vein, popliteal vein, and the trifurcation region shows no evidence of deep venous thrombosis. ? There is a small potential cyst measuring approximately 4.4 x 0.8 cm in size. LEFT: Echogenic noncompressible thrombus in the left common femoral and throughout the superficial femoral vein and popliteal vein. Visualized major saphenous vein appears patent. There is a septated popliteal cyst measuring 3.9 x 2.5 x 2.7 cm in size. US/US venous duplex LE BI IMPRESSION: 1.? Exam positive for left lower extremity DVT involving the common femoral, superficial femoral and popliteal veins. 2.? No right lower extremity DVT. 3.? Bilateral popliteal cysts. ? This critical result was discussed with Dr. Luci Davila at 7:13 PM on 06/03/2022 and it was ascertained that the content and urgency of the report was understood at the time of direct communication. Critical Care Time Critical Care Time Critical Care Time: Yes Total Critical Care Time: 60 Attestation: I have personally provided critical care time. Time includes review of lab data, radiology results, discussion with consultants, and monitoring for potential decompensation. Intervention performed as documented. Discharge Plan Discharge Clinical Impression: Cellulitis of leg, Acute kidney injury superimposed on CKD, DVT, lower extremity Patient Disposition: Admitted As Inpatient Prescriptions: No Action metoprolol succinate 100 mg Tablet Extended Release 24 Hr 100 mg PO DAILY@0600 Qty: 30 0RF Rx Instructions: TDD = 125 MG magnesium oxide 400 mg (241.3 mg magnesium) Tablet 400 mg PO DAILY@0600 Qty: 30 0RF magnesium hydroxide [Milk of Magnesia] 400 mg/5 mL Suspension 30 ml PO DAILY PRN (Reason: Constipation) Qty: 300 0RF bisacodyl [Gentle Laxative (bisacodyl)] 10 mg Suppository 10 mg RI DAILY PRN (Reason: Constipation) Qty: 30 0RF metoprolol succinate 25 mg Tablet Extended Release 24 Hr 25 mg PO DAILY@0600 Qty: 30 0RF Rx Instructions: TDD = 125 MG acetaminophen 325 mg Tablet 650 mg PO BEDTIME dextromethorphan-guaifenesin 10-100 mg/5 mL Syrup 10 ml PO QID PRN (Reason: Cough) aspirin 81 mg Tablet,Delayed Release (Dr/Ec) 81 mg PO DAILY@0600 ascorbic acid (vitamin C) [Vitamin C] 250 mg Tablet 250 mg PO DAILY@0600 aloe vera 5,000 mg Capsule 20,000 mg PO DAILY@0600 coenzyme Q10 200 mg Capsule 200 mg PO DAILY@0600 vitamin E (dl, acetate) 180 mg (400 unit) Capsule 180 mg PO DAILY@0600 omega 7-jeo-nkx-fish oil [Fish Oil] 1,200 (144-216) mg Capsule 2 cap PO DAILY@0600 Lactobacillus acidoph-L.bulgar [Floranex] 1 million cell Tablet 1 tab PO DAILY Metamucil 3.4 gram/5.4 gram Powder 1 tbsp PO DAILY PRN (Reason: Constipation) Rx Instructions: mix into at least 8 oz of water or juice before administering acetaminophen 325 mg tablet 650 mg PO Q6H PRN (Reason: Pain, Mild (Pain Scale 1-3)/FEVER) docusate sodium 100 mg Capsule 100 mg PO DAILY PRN (Reason: Constipation) Qty: 30 0RF prednisone 20 mg tablet 40 mg PO DAILY Qty: 8 0RF albuterol sulfate 90 mcg/actuation HFA aerosol inhaler 1 inh inhalation QID PRN (Reason: bronchospasm) Qty: 8.5 0RF
[2022-06-03 15:40] LABS: Basophils Absolute Auto 0.1 X10*3/uL (0.0-0.2); Basophils Percent Auto 0.2 % (0-2); Eosinophils Percent Auto 0.1 % (0-4); Hematocrit 39.8 % (42.0-52.0); Hemoglobin 12.7 g/dl (14.0-18.0); Imm Gran Abs Auto 0.49 X10*3/uL (0.00-0.03); Imm Gran Pct Auto 1.6 % (0.0-0.4); Lymphocytes Absolute Auto 0.4 X10*3/uL (1.2-4.9); Lymphocytes Percent Auto 1.4 % (20-40); MANUAL DIFF FLAG SCAN; Mean Corpuscular HGB Conc 31.9 g/dl (31.0-36.0); Mean Corpuscular Hemoglobin 27.5 pg (27.0-33.0); Mean Corpuscular Volume 86.3 fL (80.0-98.0); Mean Platelet Volume 9.3 fL (9.4-12.4); Monocytes Absolute Auto 1.6 X10*3/uL (0.1-1.2); Monocytes Percent Auto 5.3 % (2-11); Neutrophils Absolute Auto 27.2 x10*3/uL (2.0-8.3); Neutrophils Percent Auto 91.4 % (45-73); Platelet Count 133 X10*3/uL (160-400); Red Blood Count 4.61 X10*6/uL (4.60-5.80); Red Cell Distribution Width 15.9 % (11.0-16.0); SCAN SMEAR FLAG 1; White Blood Count 29.7 X10*3/uL (4.8-10.8)
[2022-06-03 15:50] LABS: Lactic Acid 1.8 mmol/L (0.5-2.0)
[2022-06-03 15:52] LABS: INTERNATIONAL NORM RATIO 1.1 (0.9-1.1); Prothrombin Time 12.2 SEC (10.0-13.1)
--- NOTE | 2022-06-03 15:52 | PC.NURSE ---
77 y/o M BIBA from SNF with hypotension and AMS. on arrival pt is aox3 but confused at times, VSS although BP soft. pt c/o pain all over . pt placed in gown, on monitor, IV in place, labs drawn and sent, swabs sent. EKG done.
--- OUTSIDE RECORDS SUMMARY | 2022-06-03 15:58 | XMS_ITS | Encounter Summary ---
:1945 Author Organization Department of [facility] rs Address [address] [place] [address] Support Name Relationship Address Phone ROLANDO LAWLER Unavailable [address] [place] [address] KELSEY HAILE Unavailable [address] [place] [address] Insurance Providers: All historical and current Section Date Range: From patient's date of to the date document was created.This section includes the names of all active insurance providers for the patient. Insurance Type of Plan Start of End of Group Member Insurance Policy P atient's Provider Coverage Name Policy Policy Number ID Provider's Cantor's Relationship Coverage Coverage Telephone Name to Policy Number Cantor MEDICARE MEDICARE PART Apr 25, PART A [id number] [phone] BRAEDENLA [place] PATIENT (WNR) (M) A 2010 RENEE AVALOS MEDICARE MEDICARE PART Apr 25, PART B [id number] [phone] BRAEDENLA ND PATIENT (WNR) (M) B 2010 RENEE AVALOS MEDICARE MEDICARE PART Apr 25, PART A [id number] [phone] [place] PATIENT (WNR) (M) A 2010 RENEE AVALOS MEDICARE MEDICARE PART Apr 25, PART B [id number] [phone] BRAEDENLA ND PATIENT (WNR) (M) B 2010 RENEE AVALOS Selected Encounter This section includes the information on record at [place] for the Encounter. Date/Time Encounter Type Encounter Reason Provider Source Description May 16, 2022 OFFICE O/P EST PM&RS PHYSICIAN ICD-10-CM M17.0 FRED KLEIN 10:00 AM MOD 30-39 MIN Bilateral primary EL L osteoarthritis of knee with Provider Comments: Bilateral Primary Osteoarthritis of Knee IHE Encounter Template Text not used by [place] Assessments - Encounter Diagnoses This section includes the primary and secondary diagnoses documented for the Encounter. Date/Time Primary/Secondary Diagnosis Name Provider Source Diagnosis May 23, 2022 PRIMARY Bilateral primary FRED KLEIN [place] [facility] 06:41 AM osteoarthritis of [place] [facility] [facility] knee May 23, 2022 SECONDARY Other obesity FRED KLEIN [facility] WSTR N 06:41 AM EL L [place] [facility] May 23, 2022 SECONDARY Personal history of FRED KLEIN [place] [facility] [place] [facility] 06:41 AM other venous Nataly [facility] thrombosis and embolism May 23, 2022 SECONDARY Sheltered [facility] AM homelessness Nataly [facility] Plan of Treatment: Future Appointments (+ 6 months) and Future Tests (+/- 45 days) The Plan of Treatment section includes future care activities for the patient [facility] This section includes future appointments and future orders which are active, pending orscheduled.Future Appointments This section includes appointments that were scheduled to occur 6 months from the date of the Encounter, up to a maximum of 20 appointments. The data comes from all [place] treatment facilities. Appointment Date/Time Appointment Type Appointment Facili ty Name Jun 18, 2022 11:30 AM AMBULATORY - REHAB MEDICINE [facility] [place] [facility] Jun 25, 2022 11:30 AM AMBULATORY - REHAB MEDICINE [facility] [place] [facility] Jul 04, 2022 01:00 PM AMBULATORY - REHAB MEDICINE [facility] [place] [place] [facility] Oct 30, 2022 10:00 AM [facility] Vital Signs: All taken on the encounter date This section contains inpatient and outpatient Vital Signs collected on the date of the Encounter. Date/Time Temperature Pulse Blood Respiratory SP02 Pain Height Weight Eric dy Source Pressure Rate Mass Index May 16 136/88 20 /min 96 % 0 [place] 2021 09:36 /min mm[Hg] [facility] [place] [facility] Social History: Smoking Status (Most current) and Tobacco Use (All prior to encounter date) This section includes the most current, and the historical, smoking and tobacco-related health factors from the [place] facility where the Encounter took place.Current Smoking Status This section includes the most current smoking, or tobacco-related health factor, from the [place] facility where the Encounter took place. Date/Time Current Smoking Status Comment Facility May 09, 2020 01:30 PM VA-TOBACCO NEVER USED [facility] [place] [facility] Tobacco Use History This section includes a history of the smoking, or tobacco- related health factors, that were collected on or before the date of the Encounter. The data comes from the [place] facility where the Encounter took place. Date/Time Smoking Status/Tobacco Use Comment [facility] Feb 11, 2020 03:54 PM VA-TOBACCO NEVER USED [facility] C [facility] [place] [facility] Feb 05, 2019 08:10 AM VA-TOBACCO FORMER USER [facility] [place] [facility] Feb 05, 2019 08:10 AM VA-TOBACCO QUIT 15 YRS OR VA [facility] [place] [facility] Apr 14, 2017 02:07 PM QUIT TOBACCO USE > 7 YEARS [facility] [place] [facility] Jan 05, 2016 02:32 PM LIFETIME NON-TOBACCO USER [facility] [place] [facility] Nov 29, 2009 09:18 AM LIFETIME NON-TOBACCO USER [facility] [place] [facility] Advance Directives: All historical and current Section Date Range: From patient's date of to the date document was created. This section includes ALL of a patient's completed or amended [place] Advance and Rescinded Directives. The entries below indicate that a directive exists for the patient, but an actual copy is not included with this document. The data comes from all [place] facilities. Date Advance Directives Provider Source Nov 13, 2017 ADVANCE DIRECTIVE MUSA STRINGER [facility] [place] [facility] Nov 12, 2017 GOALS & PREFERENCES TO MUSA STRINGER [facility] INFORM LIFE-SUSTAINING [place] [facility] TREATMENT PLAN Radiology Reports: +/- 30 days of the encounter Radiology Reports For cases when an order for radiology services may have been completed prior to the date of the Encounter, the report list includes the Radiology Reports that were completed up to 30 days before date of the Encounter. For cases when an order for radiology services may have been completed after the date of the Encounter, the report list also includes the Radiology Reports that were completed up to 30days after date of the Encounter. The data comes from all [place] treatment facilities. Date/Time Radiology Report Provider Source May 16, 2022 08:47 KNEE 2 VIEWS (RIGHT): RADIOLOGY,OUTSIDE [facility] RENEE WALTER [phone] -[birth year] 7 M SERVICE [place] [facility] Exm Date: MAY 16, 2022@08:47 Req Phys: JULIANNE WILLINGHAM Pat Loc: ZZCWM/NO/ NEPHROLOGY TEL-X (Re Img Loc: NCM/BUILDING 1 Service: Unknown (Case [id number] COMPLETE) KNEE 3 VIEWS(RIGHT) (RAD Det eder) CPT:68232 Proc Modifiers : RIGHT Reason for Study: pain (Case 250 COMPLETE) KNEES BILAT STANDING (RAD De tailed) CPT:65888 (Case 251 COMPLETE) KNEE 3 VIEWS (LEFT) (RAD Det eder) CPT:34588 Proc Modifiers : LEFT Clinical History: Report Status: Verified Date Reported: MAY 16, 2022 Date Verified: MAY 16, 2022 Testing Shaking Shipping E-Sig: Report: KNEE 3 VIEWS(RIGHT) [PRINTSET], KNEES BILAT STA NDING [PRINTSET], KNEE 3 VIEWS (LEFT) [PRINTSET] INDICATION: pain COMPARISON: None TECHNIQUE: 9 views of the bilateral knees, subm itted to the [place] National Teleradiology Program (NTP) for interp retation. Impression: RIGHT: No acute fracture or traumatic malalignm ent. 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 Moderate degenerative changes of the patellofem oral knee compartment. Moderate knee joint effusion LEFT: No acute fracture or traumatic alignment. Advanced tricompartmental degenerative changes. No knee joint effusion READING PHYSICIAN: Rosales Cartagena MD -[phone] 05/16/2022 14:17 EST [facility] National Teleradiology Program [phone] (For Medical Practitioner Use Only ) Attention Patients / Veterans: If you have ques tions or concerns about these test results, please contact your o rdering provider or primary care team. Primary Diagnostic Code: NO ALERT REQUIRED Primary Interpreting Staff: RADIOLOGY,OUTSIDE SERVICE, Staff Physician / Encounter Notes: All associated encounter notes This section contains the clinical notes associated to the Encounter. Date/Time Encounter Note(s) Provider Source May 16, 2022 11:51 PHYSICAL MEDICINE REHAB CONSULT: NICKIE KLEIN L [place] [facility] AM [facility] TITLE: CONSULT REPORT/PM&R [facility] STANDARD TITLE: PHYSICAL MEDICINE REHAB CONSULT DATE OF NOTE: MAY 16, 2022@11:51 ENTRY DATE: MAY 16, 2022@11:51:52 AUTHOR: NEELAM KLEIN EXP COSIGNER: URGENCY: STATUS: COMPLETED CONSULT REPORT/PM&R Has ADDENDA MAY 16, 2022 BUCKYRENEE JR is a 76 y/o RHD WHITE MALE, previously in [employer] FROM Oct TO Oct from [employer] [place] [employer], who was evaluated today for chief complaint of bilateral knee pain. [place] presents today with pain after walking o nly. He denies any pain at rest. He comes to us from [place]. Prior to e saw Dr. Bernal and on one occasion had Euflexxa. He felt that he w as able to walk better but he only had 1 of a series of 3. He comes in today in hopes that he might be able to continue the work that Dr. Bernal had started. He felt that he was able to walk a little bit further. Stated that he was able to take his Rollator for longer distances. He has unfortunately morbid obesity. He states t hat he lost nearly 100 pounds and then moves program up with his son o nce again during . Current weight is 350 pounds. He has a difficult time motivatin g and does not have a great deal of movement through the knees. He has had x -rays that demonstrated advanced osteoarthritis. He would not be a surgi misael candidate due to the obesity. He additionally has some shortness of b reath with exertion. He has worn braces in the past but has not found them to be terribly helpful. Donning and doffing is chall enging. He enjoys being in the water and feels that swimming is helpful. He did like to incr ease the amount of swelling that he is doing. He additionally is looking for referral t o moves program in hopes of reducing weight. He is unable to take anti-in flammatories due to chronic kidney disease. Topical creams such as lidocaine have been trialed in past without success. He is currently seeing a physical therapist but this has not provided a great deal of relief as of yet. Daily activities/exercise:minimal Pertinent prior procedures and/or imagin g: Advanced tricompartmental arthritis PMHx as obtained from Chart: Active problems - Computerized Problem List is t he source for the followin. Anemia (SCT [id number]) 2. Chronic kidney disease stage 4 3. Lymphoma 4. Rotator cuff tear arthropathy (SNOMED CT [id number]) 5. Atrial fibrillation 6. Diverticulosis 7. Other joint derangement, not elsewhere classified, involving shoulder region 8. Obesity (SNOMED CT [id number]) Soc Hx: MARITAL STATUS - NEVER AR[employer] FROM Oct TO Oct Service Connected Disabilities with % Eligibility: AID & ATTENDANCE VERIFIED ALL: PENICILLIN, CEPHALEXIN MEDS: Active Outpatient Medications (including Supplie s): Non-VA ASCORBIC ACID TAB BY MOUTH DAILY ACTIVE Non-VA ASPIRIN 81MG EC TAB 81MG BY MOUTH ONCE DA SONIA ACTIVE Non-VA COENZYME Q10 CAP/TAB DAILY ACTIVE Non-VA FAMOTIDINE 20MG TAB 20MG BY MOUTH ONCE DA SONIA ACTIVE Non-VA FISH OIL (NO NEW STARTS - ON BACKORDER) C AP,ORAL ACTIVE BY MOUTH DAILY Non-VA L-CARNITINE TAB BY MOUTH DAILY ACTIVE Non-VA LACTOBACILLUS ACIDOPHILUS TAB 1 CAPSULE B Y MOUTH ACTIVE ONCE DAILY Non-VA LORATADINE 10MG TAB 10MG BY MOUTH ONCE DA SONIA ACTIVE Non-VA MAGNESIUM OXIDE TAB BY MOUTH DAILY ACTIVE Non-VA METOPROLOL SUCCINATE 100MG SA TAB 100MG B Y MOUTH ACTIVE ONCE DAILY Non-VA MULTIVITAMIN/MINERALS CAP/TAB 1 TABLET BY MOUTH ACTIVE DAILY Non-VA OTHER CAP/TAB HOMOCYSTEINE DAILY ACTIVE Non-VA OTHER CAP/TAB RIBOSE DAILY ACTIVE Non-VA VITAMIN D3 (CHOLECALCIFEROL) TAB BY MOUTH DAILY ACTIVE Non-VA VITAMIN E CAP,ORAL BY MOUTH DAILY ACTIVE No Active Remote Medications for this patient ROS: Constitutional - Denies fever or chills, night s weats, or unexplained weight loss. Head/Eyes/Ears/Neck- Denies headaches, dizziness , visual changes. Cardiovascular - Denies chest pain/palpitations, lower extremity swelling. Respiratory -he does have shortness of breath on minimal degrees of exertion GI - Denies nausea, vomiting, or loss of bowel f x/control. - Denies urinary difficulties or loss of blad bibiana function. Musculoskeletal - See HPI. Neuro - See HPI. Psychiatric - See PMHx. Denies mood swings or ch karime in behavior. Sleep - Denies nocturnal pain or excessive dayti me fatigue. Skin/integuments - Denies ra shes, lesions, or skin breakdown in the extremities. All other systems reviewed and are negative. PHYSICAL EXAMINATION: Vitals in chart. GEN: WD, WN. Awake, alert, cooperative with exam . In NAD. PSYCH: Good eye contact. Normal mood. Appropriat ethan concerned. CVS: Extremities warm/well perfused. No lower ex tremity edema appreciated. PULM: Breathing unlabored, no accessory muscle u se. ABD: Nondistended. EXTREMITIES: No cyanosis or edema of bilateral u pper extremities but he does have significant edema in th e lower extremities with discoloration secondary to venous insufficiency and previous blood clots. Knee range of motion is grossly limited. Varus alignment is appreciated. Flexion was 70 degrees of passive range of motion to lacking 5 degrees of terminal extension bilaterally. No instability able to be appreciated downey d manual testing is challenging due to body habitus and ability to get the patient supi ne. Doing SKIN: No rashes, lesions, or skin breakdow n over exposed areas. MUSCULOSKELETAL/NEURO EXAM: Gait: normal, symmetric, negative Trendelenburg. Able to perform tandem walk and heel/toe walk. Labs: Collection DT Spec WBC HGB HCT PLT K+/Pot Sodium GLUCOSE 07/29/2019 08:36 SERUM 5.3 H 140 98 04/30/2019 09:26 SERUM 5.8 H 141 100 02/12/2019 16:02 SERUM 5.4 H 139 101 H 11/21/2017 08:53 SERUM 4.4 139 144 H 11/21/2017 08:53 BLOOD 0.06 L* 6.9 L* 20.7 L* 51 L Collection DT Spec CREATIN AST ALT T BILI ALK PH O CHOL LDL-c 07/29/2019 08:36 SERUM 1.83 H 04/30/2019 09:26 SERUM 2.07 H 02/12/2019 16:02 SERUM 1.91 H 11/21/2017 08:53 SERUM 1.64 H 11/07/2017 10:50 SERUM 2.21 H Collection DT Spec HDL TRIG TSH B12 VIT D25 HIV Ag/ RBC/HPF 07/29/2019 08:36 SERUM 42 04/30/2019 09:26 SERUM 45 02/12/2019 16:02 SERUM 52 H 11/07/2017 10:50 SERUM 38 10/07/2017 10:58 SERUM 38 CHEM 7 TREND Collection DT Spec GLUCOSE BUN CREATIN Sodium K+ /Pot CL CO2 07/29/2019 08:36 SERUM 98 19 1.83 H 140 5.3 H 10 4 26 04/30/2019 09:26 SERUM 100 40 H 2.07 H 141 5.8 H 110 25 02/12/2019 16:02 SERUM 101 H 35 H 1.91 H 139 5.4 H 104 25 11/21/2017 08:53 SERUM 144 H 58 H 1.64 H 139 4.4 112 H 19 L 11/07/2017 10:50 SERUM 113 H 30 H 2.21 H 138 4.5 106 23 Liver Function Tests No data available for: AST ALT ALKALINE PHOSPHATASE ALBUMIN BILIRUBIN, TOTAL LDH PROTEIN,TOTAL HEMOGLOBIN A1C TREND No data available Diagnostic Studies: X-rays s how severe osteoarthritis tricompartmental with the majority of the pain in the medial compartments. ASSESSMENT/PLAN: Patient is a 76-year-old [place] presenting with bilateral osteoarthritis. He really is not complaining of any significant pain at this time. Much of what he is experiencing is hopefulness that virginie garzon will be able to get the same type of relief that he had 2 years ago. He has had signi ficant difficulties with mobility. We discussed potential for improvement hyaluroni c acid. Discussed the indications and the risks ho peful that he may be able to see some improvement in function. Given the fact that he would n ot be a surgical candidate it is worth a single trial but if no sig nificant change in functional status is appreciated I would not recommend continuing. We did discuss the risks and benefits of the injections particularly for venous insufficiency and potential for infection. He wo uld like to proceed. We will submit for Euflexxa this will have to be done under ultrasound. FOLLOW-UP: Once approved we will schedule for Eu flexxa injections Potential risks and side effects of any medicati on(s) prescribed today was reviewed with . Patient had man y excellent questions, which I answered to the best of my ability and t o patient's apparent satisfaction. MDM: 60 minutes which includes reviewing records , evaluating patient, documenting in medical record, educating, counse ling and coordinating care. Medication Reconciliation: Outpatient: Has the patient been taking medications as docu mented in the EMLR? YES: The patient has been taking medications as documented in the EMLR. Essential Medication List for Review used to co mplete this medication reconciliation. INCLUDED IN THIS LIST: Alphabetical list of act vitaly outpatient prescriptions dispensed from this VA (local) an d dispensed from another VA or DoD facility (remote) as well as inpatien t orders (local, pending and active), local clinic medications, locally documented non-VA medications, and local prescriptions that have or been discontinued in the past 90 days. - All changes in medications, including all non -VA/Herbal/OTC medications were entered into CPRS. - If there were any medications the patient alan uld no longer take, they were discontinued. - The patient/caregiver was instructed to updat e this list, discard old lists, and take this list to the next appointme nt, whether with a VA or non-VA provider. Allergies/ADRs (Tool #5) FACILITY ALLERGY/ADR -------- No Remote All[facility]ADR [facility] [place] CEPHALEXIN [place] [facility] [place] [facility] PENICILLIN Med Recon NoGlossary (Tool #1) INCLUDED IN THIS LIST: Alphabetical list of act vitaly outpatient prescriptions dispensed from this VA (local) an d dispensed from another VA or DoD facility (remote) as well as inpatien t orders (local pending and active), local clinic medications, locally docu mented non-VA medications, and local prescriptions that have or be en discontinued in the past 90 days. Non-VA Meds Last Documented On: Feb 17, 2019 NOTE The display of VA prescriptions disp ensed from another VA or [facility] facility (remote) is limited to active outp atient prescription entries matched to National Drug File at the [facility] site and may not include some items such as investigational drugs, compo unds, etc. NOT INCLUDED IN THIS LIST: Medications self-ent ered by the patient into personal health records (i.e. [employer]) ar e NOT included in this list. Non-VA medications documented outside [facility] [place], remote inpatient orders (regardless of status) and remote clinic medications are NOT included in this list. The patient and provider must always discuss medications the patient is taking, regardless o f where the medication was dispensed or obtained. Non-VA ASCORBIC ACID TAB TAKE BY MOUTH DAILY Non-VA ASPIRIN 81MG EC TAB TAKE ONE TABLET BY MOUTH ONCE DAILY Non-VA COENZYME Q10 CAP/TAB DAILY Non-VA FAMOTIDINE 20MG TAB TAKE ONE TABLET BY MOUTH ONCE DAILY Non-VA FISH OIL (NO NEW STARTS - ON BACKORDER) CAP,ORAL TAKE BY MOUTH DAILY Non-VA L-CARNITINE TAB TAKE BY MOUTH DAILY Non-VA LACTOBACILLUS ACIDOPHILUS TAB TAKE 1 CAPSULE BY MOUTH ONCE DAILY Non-VA LORATADINE 10MG TAB TAKE ONE TABLET BY MOUTH ONCE DAILY Non-VA MAGNESIUM OXIDE TAB TAKE BY MOUTH DAILY Non-VA METOPROLOL SUCCINATE 100MG SA TAB TAKE ONE TABLET BY MOUTH ONCE DAILY Non-VA MULTIVITAMIN/MINERALS CAP/TAB TAKE ONE TABLET BY MOUTH DAILY Non-VA OTHER CAP/TAB RIBOSE DAILY Non-VA OTHER CAP/TAB HOMOCYSTEINE DAILY Non-VA VITAMIN D3 (CHOLECALCIFEROL) TAB TAKE BY MOUTH DAILY Non-VA VITAMIN E CAP,ORAL TAKE BY MOUTH DAILY SUPPLIES /es/ NEELAM KLEIN [facility] [address] Signed: 05/16/2022 13:32 05/16/2022 ADDENDUM STATUS: COMPLETED Please reenter the consult for the right drug an d dose that you want to prescribe for patient as follow: Euflexxa is dose at 10mg/ml Synvisc One is dose at 48MG/6ML (SYNVISC ONE) IN J 48MG/6ML INJECT 48MG/6ML INTRA-ARTICULAR /es/ CARRIE RADER, PHARM.D CLINICAL PHARMACIST PRACTITIONER Signed: 05/16/2022 15:42 Receipt Acknowledged By: * AWAITING SIGNATURE * NEELAM KLEIN
--- OUTSIDE RECORDS SUMMARY | 2022-06-03 15:58 | XMS_ITS | Encounter Summary ---
:1945 Author Organization [facility] Address [address] [place] [id number] Support Name Relationship Address Phone ROLANDO LAWLER Unavailable [address] [facility] [phone] [place] [address] KELSEY HAILE Unavailable [address] [place] [address] Insurance Providers: All historical and current Section [...] MEDICARE MEDICARE PART Apr 25, PART A [id number] [id number] LANGLA ND PATIENT (WNR) (M) A 2010 RENEE AVALOS MEDICARE MEDICARE PART Apr 25, PART B [id number] [phone] LANGLA ND PATIENT (WNR) (M) B 2010 RENEE AVALOS MEDICARE MEDICARE PART Apr 25, PART A [id number] BRAEDENLA ND PATIENT (WNR) (M) A 2010 4 RENEE AVALOS MEDICARE MEDICARE PART Apr 25, PART B [id number] BRAEDENLA ND PATIENT (WNR) (M) B 2010 RENEE AVALOS Selected Encounter This section includes the information on record at [place] for the Encounter. Date/Time Encounter Type Encounter Reason Provider Source Description May 17, 2022 QNHP OL DIG CLINICAL ICD-10-CM M17.9 TEP,CARRIE 11:30 AM [facility] Osteoarthritis of RILEY 11-20 knee, unspecified with Provider Comments: Osteoarthritis of knee, unspecified IHE Encounter Template Text not used by [place] Assessments - Encounter Diagnoses This section includes the primary and secondary diagnoses documented for the Encounter. Date/Time Primary/Secondary Diagnosis Name Provider Source Diagnosis May 17, 2022 PRIMARY Osteoarthritis of TEP,SUSSYOUS [place] CNT W STRN 03:34 PM knee, [facility] Plan of Treatment: Future Appointments (+ 6 months) and Future Tests (+/- 45 days) The Plan of Treatment section includes future care activities for the patient from all [place] treatmentfacilities. This section includes future appointments and future orders which are active, pending orscheduled.Future Appointments This section includes appointments that were scheduled to occur 6 months from the date of the Encounter, up to a maximum of 20 appointments. The data comes from all [place] treatment facilities. Appointment Date/Time Appointment Type Appointment Facili ty Name Jun 18, 2022 11:30 AM AMBULATORY - [facility] Jun 25, 2022 11:30 AM [facility] Jul 04, 2022 01:00 PM [facility] Oct 30, 2022 10:00 AM [facility] Social History: Smoking Status (Most current) and Tobacco Use (All prior to encounter date) This section includes the most current, and the historical, smoking and tobacco-related health factors from the [place] facility where the Encounter took place.Current Smoking Status This section includes the most current smoking, or tobacco-related health factor, from the [place] facility where the Encounter took place. Date/Time Current Smoking Status Comment Facility May 09, 2020 01:30 PM VA-TOBACCO [facility] Tobacco Use History This section includes a history of the smoking, or tobacco- related health factors, that were collected on or before the date of the Encounter. The data comes from the [place] facility where the Encounter took place. Date/Time Smoking Status/Tobacco Use Comment [facility] Feb 11, 2020 03:54 PM VA-TOBACCO NEVER USED [place] C NTRL WSTRN [facility] Feb 05, 2019 08:10 AM VA-TOBACCO [facility] Feb 05, 2019 08:10 AM VA-TOBACCO QUIT 15 YRS OR VA CNTRL [place] MORE [facility] Apr 14, 2017 02:07 PM QUIT TOBACCO USE > 7 YEARS [facility] [place] [facility] Jan 05, 2016 02:32 PM LIFETIME NON-TOBACCO USER [facility] [place] [facility] Nov 29, 2009 09:18 AM LIFETIME NON-TOBACCO USER [facility] [place] [facility] Advance Directives: All historical and current Section Date Range: From patient's date of to the date document was created. This section includes ALL of a patient's completed or amended [facility] Advance and Rescinded Directives. The entries below indicate that a directive exists for the patient, but an actual copy is not included with this document. The data comes from all [place] facilities. Date Advance Directives Provider Source Nov 13, 2017 ADVANCE DIRECTIVE MUSA STRINGER [place] CNTRL [place] [facility] Nov 12, 2017 GOALS & PREFERENCES TO MUSA STRINGER [place] C NTRL WSTRN INFORM LIFE-SUSTAINING [place] [facility] TREATMENT PLAN Radiology Reports: +/- 30 [...] the Encounter. The data comes from all [place] treatment facilities. Date/Time Radiology Report Provider Source May 16, 2022 08:47 KNEE 2 VIEWS (RIGHT): RADIOLOGY,OUTSIDE [place] CN TRL WSTRN RENEE WALTER [phone] -[birth year], [birth year] 6 M [facility]ICE [facility] Exm Date: MAY 16, 2022@08:47 Req Phys: JULIANNE WILLINGHAM Pat Loc: ZZCWM/NO/ NEPHROLOGY TEL-X (Re Img Loc: [facility] Service: Unknown (Case [id number] COMPLETE) KNEE 3 VIEWS(RIGHT) (RAD Det eder) CPT:44446 Proc Modifiers : RIGHT Reason for Study: pain (Case 250 COMPLETE) KNEES BILAT STANDING (RAD De tailed) CPT:20740 (Case 251 COMPLETE) KNEE 3 VIEWS (LEFT) (RAD Det eder) CPT:58004 Proc Modifiers : LEFT Clinical History: Report Status: Verified Date Reported: MAY 16, 2022 Date Verified: MAY 16, 2022 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 Impression: RIGHT: No acute fracture or traumatic malalignm ent. 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 Moderate degenerative changes of the patellofem oral knee compartment. Moderate knee joint effusion LEFT: No acute fracture or traumatic alignment. Advanced tricompartmental degenerative changes. No knee joint effusion READING PHYSICIAN: Rosales Cartagena MD -[id number] 01 05/16/2022 14:17 [facility] National Teleradiology Program [phone] (For Medical Practitioner Use Only ) Attention [...] Encounter. Date/Time Encounter Note(s) Provider Source May 17, 2022 03:21 MEDICATION MGT CONSULT: CARRIE RADER [place] C NTRL WSTRN PM LOCAL TITLE: CONSULT REPORT/NON FORMULARY PADR [place] [facility] STANDARD TITLE: MEDICATION MGT CONSULT DATE OF NOTE: MAY 17, 2022@15:21 ENTRY DATE: MAY 17, 2022@15:21:15 AUTHOR: CARRIE RADER EXP COSIGNER: URGENCY: STATUS: COMPLETED The medical record has been reviewed with regard to this restricted drug request. Medication requested: HYLAN G-F20 48MG/6ML INJ SYRINGE 6ML Medication indication: Bilateral Osteoarthritis Medical history relevant to this request: Exclusion Criteria: If the answer to ANY item below is met, then the patient should NOT receive viscosupplementation. [ ] Known hypersensitivity o r allergy to hyaluronate or hylan preparations (see supplementary information) [ ] Knee joint infection, skin disease or infect ion in the area of the injection site Inclusion Criteria: The answers to all of the fo llowing must be fulfilled in order to meet criteria. [ x ] Documented symptomatic (pain/stiffness) OA of the knee which interferes with functional activities ( e.g. ambulation, prolonged standing, etc.) and/or is associated with significant pain. [ x ] Adequate trial (e.g. 2 to 3 months) of non -pharmacologic measures, as appropriate, (e.g. cane/crutches, bracing/orthot ics, weight loss, physical therapy/exercise) has not resulted in adequate i mprovement in pain/function. [ x ] Therapeutic trial of at least 3 analgesics (e.g. acetaminophen, topical capsaicin or topical NSAIDs, oral NSAIDs or dulo xetine) has not resulted in adequate improvement in pain/function; or patien t is unable to tolerate or is not a candidate for NSAIDs or other oral therapi es. [ x ] Patient and/or provider have elected to co ntinue conservative (nonsurgical) treatment for OA - is not a candidate for surgery because of weight - is 373 pounds and have tried braces, c rutches, and PT with minimal relief - can not take NSAIDs due to Stage 4 Chr onic Kidney Disease - [place] has xray completed for both knees on 07/17/21, please see note by radiologist The request is approved: - A documented therapeutic failure of the prefer red formulary alternative(s) exists /es/ CARRIE RADER, PHARM.D CLINICAL PHARMACIST PRACTITIONER Signed: 05/17/2022 15:35
--- OUTSIDE RECORDS SUMMARY | 2022-06-03 15:58 | XMS_ITS | Continuity of Care Document ---
:1945 Author Organization [facility] Care Team Providers Name Role Phone [facility] Unavailable Unavailable Problems Combined list of problems from Department of Defense and Veterans Affairs facilities. It does not include entries that were removed or entered in error. Problem Status Onset Problem Type Date of Comments Source Date Resolution Anemia (SCT Active Condition [facility] [id number][place] [facility] [place] [facility] Atrial fibrillation Active Condition Mar 14, [facility] CNTRL 2009 W[facility]N Entered By: Karlee MEJIA HCS ILLIAM F Comment: Declines coumadin. Chronic kidney Active Condition [facility] CN [facility] disease stage 4 [facility] [place] [facility] Diverticulosis Active Condition Mar 01, VA C NTRL 2009 [facility] Entered By: Karlee MEJIA HCS ILLIAM F Comment: Found on 06-23-06 second colonoscopy . FH of possible CRC? Lymphoma Active Condition [facility] [place] [facility] Obesity (SNOMED CT Active Condition V A CNTR[facility] [id number]) [facility] [place] [facility] Other joint Active Condition [facility] derangement, not WST RN elsewhere [place] classified, HCS involving shoulder region (IC Rotator cuff tear Active Condition [facility] arthropathy (SNOMED WSTRN CT [id number]) [place] [facility] Diagnosis: ICD-10-CM Active Diagnosis [facility] M17.9 Osteoarthritis [place] of knee, [place] unspecifiedwith HCS Provider Comments: Osteoarthritis of knee, unspecified Diagnosis: ICD-10-CM Active Diagnosis [facility] M17.0 Bilateral [place] N primary [place] osteoarthritis of HC S kneewith Provider Comments: Bilateral Primary Osteoarthritis of Knee Diagnosis: ICD-10-CM Active Diagnosis [facility] CN[facility] Z71.9 Counseling, WS TRN unspecifiedwith [place] Provider Comments: H CS Counseling, unspecified Diagnosis: ICD-10-CM Active Diagnosis [facility] CN[facility] I12.9 Hypertensive W STRN chronic kidney [place] disease w stg HCS 1-4/unsp chr kdnywith Provider Comments: Hypertensive Chronic Kidney Disease with Stage 1 through Stage 4 Chronic Kidney Disease, or unspecified Chronic Kidney Disease Diagnosis: ICD-10-CM Active Diagnosis [facility] CN[facility] Z76.89 Persons WSTRN encountering health [place] services in oth HCS circumstanceswith Provider Comments: Health Services in Other Specified Circumstances Medications Combined list of outpatient medications from Department of Defense and Veterans Affairs facilities. Medications provided include 1) outpatient medications from the last 15 months, and 2) patient-reported medications. Medication Details Route Status Patient Prescription Prescription Last Ordering Order Source Instructions Expires Number Dispense Provider Date Date ASCORBIC TAKE BY ORAL ACTIVE VANWAGNER 11/29/ [facility] ACID TAB MOUTH ,JULIANNE 2009 [facility] DAILY F [facility] [place] [facility] [facility] ASPIRIN TAKE ONE ORAL ACTIVE VANWAGNER 02/17/ VA 81MG TAB,EC TABLET ,2018 CNTR L BY MOUTH F [facility] [place] [facility] COENZYME DAILY [facility]IVE [facility] 11/29/ [facility] Q10 CAP/TAB ,JULIANNE 2009 [facility]L F [facility] [place] [facility] [facility] FAMOTIDINE TAKE ONE ORAL ACTIVE VANWAGNER 02/17/ VA 20MG TAB TABLET ,2018 CNTRL BY MOUTH F [facility]CE [place] [facility] FISH OIL TAKE BY ORAL ACTIVE VANWAGNER 11/29/ VA CAP,ORAL MOUTH ,2009 [facility] DAILY F [facility] [place] [facility] [facility] L-CARNITINE TAKE BY ORAL ACTIVE VANWAGNER 11/29/ VA TAB MOUTH ,JULIANNE 2009 [facility] DAILY F [facility] [place] [facility] [facility] LACTOBACILL TAKE 1 ORAL ACTIVE VANWAGNER 02/17/ V A US CAPSULE ,2018 CNTRL ACIDOPHILUS BY MOUTH F [facility] TAB ONCE [place] [facility] LORATADINE TAKE ONE ORAL ACTIVE VANWAGNER 02/17/ VA 10MG TAB TABLET ,2018 CNTRL BY MOUTH F [facility] ONCE [place] [facility] MAGNESIUM TAKE BY ORAL ACTIVE VANWAGNER 11/29/ VA OXIDE TAB MOUTH ,JULIANNE 2009 [facility] DAILY F [facility] [place] [facility] [facility] METOPROLOL TAKE ONE ORAL ACTIVE VANWAGNER VA SUCCINATE TABLET ,2018 CNTRL 100MG BY MOUTH F [facility] TAB,SA ONCE [place] [facility] MULTIVITAMI TAKE ONE ORAL ACTIVE VANWAGNER 11/29/ VA NS TABLET ,2009 CNTRL W/MINERALS BY MOUTH F [facility] TAB DAILY [place] [facility] [facility] OTHER RIBOSE ACTIVE VANWAGNER 11/29/ VA CAP/TAB DAILY ,2009 [facility] F [facility] [place] [facility] [facility] VITAMIN D3 TAKE BY ORAL ACTIVE VANWAER 11/29/ V A (CHOLECALCI MOUTH ,2009 CNTRL FEROL) TAB DAILY F [facility] [place] [facility] VITAMIN E TAKE BY ORAL ACTIVE VANWAGNER 11/29/ VA CAP,ORAL MOUTH ,2009 [facility] DAILY F [facility] [place] [facility] [facility] Allergies, Adverse Reactions, Alerts Combined list of allergies from Department of Defense and Veterans Affairs facilities. It does not include entries that were removed or entered in error. Substance Category Reaction Severity Reaction Status Date Comments S ource type Reported CEPHALEXIN Propensity Blood in Propensity active [facility] CN[facility] to adverse urine, to adverse 8 WS TRN reactions Generalized reactions [place] to drug aches and to drug ETS HC S (finding) pains (finding) PENICILLIN Propensity Airway Propensity active [facility] CNTRL to adverse constrictio to adverse 8 [facility] reactions n reactions [place] to drug to drug ETS HCS (finding) (finding) Immunizations Combined list of available immunizations from the Department of Defense and Veterans Affairs facilities. 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 Printer INFLUENZA, complet [place] UNSPECIFIED 2019 ed HO SPITA FORMULATION L HEP A-HEP B 2 complet [facility] 2019 ed [facility] [place] [facility] [facility] HEP A-HEP B 1 05/13/ 104 complet carlos enrique ated [facility] 2018 ed wel [facility] [place] [facility] [facility] ZOSTER 2 complet [facility] RECOMBINANT 2018 ed CN TRL [facility] [place] [facility] INFLUENZA, complet Site: VA TRIVALENT, 2019 ed Left CNT RL ADJUVANTED Deltoid [facility] [place] [facility] TD (ADULT), 2 complet Sit e: VA LF TETANUS 2018 ed Left CNT RL TOXOID, Deltoid WSTR N PRESERVATIVE M [facility]CHU FREE, [facility] ZOSTER 1 complet [facility] RECOMBINANT 2017 ed CN TRL [facility] [place] [facility] [facility] PNEUMOCOCCAL complet VA CONJUGATE PCV 2014 ed CNTRL 13 [facility] [place] [facility] FLU,3 YRS complet V A (HISTORICAL) 2012 ed C NTRL [facility] [place] [facility] [facility] ZOSTER LIVE 06/01/ TIEJOSSUEVERNETT 121 compl et VA 2012 E L ed [facility] [place] [facility] FLU,3 YRS complet Site: V A (HISTORICAL) 2011 ed Left C NTRL Deltoid [facility] [place] [facility] [facility] PNEUMOCOCCAL, complet Sit e: [facility] UNSPECIFIED 2011 ed Left CN TRL FORMULATION Deltoid [facility] [place] [facility] FLU,3 YRS complet Site: V A (HISTORICAL) 2010 ed Left C NTRL Deltoid [facility] [place] [facility] TD(ADULT) complet V A UNSPECIFIED 2009 ed CN TRL FORMULATION [facility] [place] [facility] [facility] TDAP complet [facility] 2009 ed [facility] [place] [facility] [facility] Vital Signs Combined list of inpatient and outpatient Vital Signs from Department of Defense and Veterans Affairs, ranging from 12 months to all on record, depending upon the facility. Vital Sign Value Date Comments Source SYSTOLIC BLOOD PRESSURE 136 05/16/2022 [facility] C [facility]TRL [facility] 09:36:11 [place] [facility] DIASTOLIC BLOOD PRESSURE 88 05/16/2022 [facility] CN[facility] 09:36:11 [place] [facility] PULSE OXIMETRY 96% 05/16/2022 [facility] CNTR[facility] 09:36:11 [place] [facility] PAIN 0 05/16/2022 [facility] CN[facility] 09:36:11 [place] [facility] PULSE 64 05/16/2022 [facility] 09:36:11 [place] [facility] RESPIRATION 20 05/16/2022 [facility] 09:36:11 [place] [facility] SYSTOLIC BLOOD PRESSURE 124 05/01/2022 VA C NTRL [facility] 10:25:13 [place] [facility] DIASTOLIC BLOOD PRESSURE 71 05/01/2022 [facility] CNTRL [facility] 10:25:13 [place] [facility] PULSE OXIMETRY 97% 05/01/2022 [facility] CN[facility] 10:25:13 [place] [facility] WEIGHT 373 05/01/2022 [facility] 10:25:13 [place] [facility] BMI 55kg/m2 05/01/2022 [facility] CN[facility] 10:25:13 [place] [facility] PAIN 0 05/01/2022 [facility] 10:25:13 [place] [facility] TEMPERATURE 98 05/01/2022 [facility] 10:25:13 [place] [facility] PULSE 72 05/01/2022 [facility] 10:25:13 [place] [facility] RESPIRATION 20 05/01/2022 [facility] 10:25:13 [place] [facility] Encounters Combined list of: 1) Encounters from Department of Veterans Affairs facilities going back up to the last 18 months. 2) Encounters from the Department of Defense facilities going back up to 280 months. Location Location Encounter Encounter Reason Attending ADM DC Stat us Disposition Source Details Type Number For Provider Date Date Visit Outpatient [id number] 01/01 [facility] En[facility] [id number] [facility] [place] [facility] [facility] Out[facility] [id number] 01/01 [facility] Encounter [id number] [facility] [place] [facility] Out[facility] [id number] 03/06 [facility] Encounter [id number] [facility] [place] [facility] Out[facility] [id number] 03/15 [facility] Encounter [id number] [facility] [place] [facility] [id number] Diagnos Barbie SIMS 03/21 [facility] Encounter [id number] is: EZEQUIEL A /2020 CN TRL ICD-10- WSTRN CM [place] I12.9 [facility] nsive chronic kidney disease w stg 1-4/uns p chr kdny
with Provide r Comment s: [facility] nsive Chronic Kidney Disease with Stage 1 through Stage 4 Chronic Kidney Disease , or unspeci fied Chronic Kidney Disease Outpatient [id number] 07/03 [facility] Encounter [id number] [facility] [place] [facility] Out[facility] [id number] 07/23 [facility] Encounter [id number] [facility] [place] [facility] Out[facility] [id number] 07/25 [facility] Encounter [id number] [facility] [place] [facility] Out[facility] [id number] Diagnos BETHANY,S 07/25 [facility] Encounter [id number] is: EZEQUIEL CN TRL ICD-10- WSTRN CM [place] I12.9 [facility] nsive chronic kidney disease w stg 1-4/uns p chr kdny
with Provide r Comment s: Hyperte nsive Chronic Kidney Disease with Stage 1 through Stage 4 Chronic Kidney Disease , or unspeci fied Chronic Kidney Disease Outpatient [id number] 10/24 [facility] Encounter [id number] [facility] [place] [facility] [id number] Diagnos Barbie SIMS 10/31 VA Encounter [id number] is: EZEQUIEL CN TRL ICD-10- WSTRN CM [place] I12.9 [facility] nsive chronic kidney disease w stg 1-4/uns p chr kdny
with Provide r Comment s: Hyperte nsive Chronic Kidney Disease with Stage 1 through Stage 4 Chronic Kidney Disease , or unspeci fied Chronic Kidney Disease Outpatient [id number] 12/10 [facility] Encounter [id number] [facility] [place] [facility] [id number] 12/28 [facility] Encounter [id number] /2022 [facility] [place] [facility] Out[facility] [id number] 01/14 [facility] Encounter [id number] [facility] [place] Out[facility] [id number] 01/30 [facility] Encounter [id number] /2022 [facility] [place] [facility] Out[facility] [id number] 01/30 [facility] Encounter [id number] /2022 [facility] [place] [facility] Out[facility] [id number] 01/30 [facility] En[facility] 1. [facility] [place] [facility] [facility] Outpatient [id number] 01/31 [facility] Encounter 1. [facility] [place] [facility] [facility] Out[facility] [id number] 02/11 [facility] Encounter [id number] /2022 [facility] [place] [facility] Out[facility] [id number] 02/15 [facility] Encounter [id number] /2022 [facility] [place] [facility] [facility] Out[facility] [id number] 02/19 [facility] Encounter [id number] [facility] [place] [facility] Outpatient [id number] 03/20 [facility] Encounter [id number] /2022 [facility] [facility] Outpatient [id number] 04/22 [facility] Encounter 1. [facility] [facility] Outpatient [id number] 04/22 [facility] Encounter 1. [facility] [facility] Outpatient [id number] 04/22 [facility] Encounter 1. [facility] [facility] Outpatient [id number] 04/22 [facility] Encounter [id number] /2022 [facility] [facility] PRO [id number] Diagnos Nataly ESTRADA 04/22 V A PHONE CALL [id number] is: SURJIT M CN TRL 11-20 MIN ICD-10- WSTRN CM [place] Z76.89 [facility] Persons [facility] health service s in oth circums tances< br/>wit h Provide r Comment s: Health Service s in Other Specifi ed Circums tances Outpatient [id number] 04/24 [facility] Encounter [id number] [facility] [place] [facility] Outpatient [id number] 04/28 [facility] Encounter [id number] /2022 [facility] [facility] Outpatient [id number] 04/30 [facility] Encounter [id number] /2022 [facility] [place] [facility] [facility] OFFICE O/P [id number] Diagnos SIMS,S 05/01 VA EST MOD [id number] is: EZEQUIEL A CNTR L 30-39 MIN ICD-10- WSTRN CM [place] I12.9 [facility] nsive chronic kidney disease w stg 1-4/uns p chr kdny
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
with Provide r Comment s: [facility] al [place] [id number] Diagnos TEP,SOPHOU 05/17 [facility] DIG [id number] is: S [place] CNTRL ASSMT&MGMT ICD-10- WSTRN 11-20 CM [place] M17.9 [facility] HCS thritis of knee, unspeci fied
with Provide r Comment s: Osteoar thritis of knee, unspeci fied Social History Combined list of available smoking, tobacco, and other social history from [facility] facilities. Social History Type Response Date Comment Source Tobacco smoking VA-TOBACCO NEVER USED 05/09/2020 [facility] status [facility] [place] [facility] History of tobacco VA-TOBACCO NEVER USED 02/11/2020 [facility] use [facility] History [facility] tobacco [facility] 02/05/2019 [facility] WSTRN use YRS OR MORE [facility] History of tobacco QUIT TOBACCO USE > 7 04/14/2017 V A [facility] WSTRN use [facility] History of tobacco LIFETIME NON-TOBACCO 01/05/2016 V A [facility] WSTRN use USER [facility] History of tobacco LIFETIME NON-TOBACCO 11/29/2009 V A [facility] WSTRN use USER [facility] Plan of Care List of future care activities from [facility] facilities. Additional future care activities may be listed in the Assessment and Plan section. Date/Time Care Activity Care Activity Detail Facility 06/18/2022 AMBULATORY - REHAB AMBULATORY - REHAB [facility] W STRN MEDICINE MEDICINE [facility] Advance Directives List of completed, amended, or rescinded Advance Directives on record at [facility] facilities. An actual copy of the Directive is not included. Date Advance Directive Provider Source 11/13/2017 ADVANCE DIRECTIVE MUSA STRINGER [place] CNTR [place] [facility] 11/12/2017 GOALS and PREFERENCES [facility] INFORM [facility]-SUSTAINING [facility]
--- OUTSIDE RECORDS SUMMARY | 2022-06-03 15:58 | XMS_ITS ---
:1945 Author Organization Department [facility] Address [address] [place] [id number] Support Name Relationship Address Phone ROLANDO LAWLER Unavailable [address] [facility] [address] [phone] [place] [address] KELSEY HAILE Unavailable [address] [place] [address] Insurance Providers: All historical and current Section [...] MEDICARE MEDICARE PART Apr 25, PART A [id number] [id number] LANGLA ND PATIENT (WNR) (M) A 2010 RENEE AVALOS MEDICARE MEDICARE PART Apr 25, PART B [id number] [phone] LANGLA ND PATIENT (WNR) (M) B 2010 RENEE AVALOS MEDICARE MEDICARE PART Apr 25, PART B [id number] BRAEDENLA ND PATIENT (WNR) (M) B 2010 RENEE AVALOS MEDICARE MEDICARE PART Apr 25, PART A [id number] [id number] BRAEDENLA ND PATIENT (WNR) (M) A 2010 RENEE AVALOS Selected Encounter This section includes the information on record at [place] for the Encounter. Date/Time Encounter Type Encounter Description Reason Provider Source May 09, 2022 10:53 Outpatient Encounter TELEPHONE CASE AM MANAGEMENT IHE Encounter Template Text not used by VA Plan of Treatment: Future Appointments (+ 6 months) and Future Tests (+/- 45 days) The Plan of Treatment section includes future care activities for the patient from all [facility]. This section includes future appointments and future orders which are active, pending orscheduled.Future Appointments This section includes appointments that were scheduled to occur 6 months from the date of the Encounter, up to a maximum of 20 appointments. The data comes from all [place] treatment facilities. Appointment Date/Time Appointment Type Appointment Facili ty Name May 16, 2022 09:00 AM AMBULATORY - NONE [place] [facility] [place] [facility] May 16, 2022 10:00 AM AMBULATORY - REHAB MEDICINE [facility] [place] [facility] [place] [facility] Jun 18, 2022 11:30 AM AMBULATORY - REHAB MEDICINE [place] [facility] [place] [facility] Jun 25, 2022 11:30 AM AMBULATORY - REHAB MEDICINE [facility] [place] [place] [facility] Jul 04, 2022 01:00 PM AMBULATORY - REHAB MEDICINE [facility] [place] [facility] Oct 30, 2022 10:00 AM AMBULATORY - MEDICINE [place] [facility] [place] [facility] Social History: Smoking Status (Most current) and Tobacco Use (All prior to encounter date) This section includes the most current, and the historical, smoking and tobacco-related health factors from the [place] facility where the Encounter took place.Current Smoking Status This section includes the most current smoking, or tobacco-related health factor, from the [place] facility where the Encounter took place. Date/Time Current Smoking Status Comment Facility May 09, 2020 01:30 PM VA-TOBACCO NEVER USED [facility] Tobacco Use History This section includes a history of the smoking, or tobacco- related health factors, that were collected on or before the date of the Encounter. The data comes from the [place] facility where the Encounter took place. Date/Time Smoking Status/Tobacco Use Comment [facility] Feb 11, 2020 03:54 PM VA-TOBACCO NEVER USED VA C [place]TRL [place] [facility] Feb 05, 2019 08:10 AM VA-TOBACCO FORMER USER [facility] [place] [facility] Feb 05, 2019 08:10 AM VA-TOBACCO QUIT 15 YRS OR [facility] [place] MORE [facility] Apr 14, 2017 02:07 PM QUIT TOBACCO USE > 7 YEARS [place] [facility] [place] [place] [facility] Jan 05, 2016 02:32 PM LIFETIME NON-TOBACCO USER [place] [facility] [place] [facility] Nov 29, 2009 09:18 AM LIFETIME NON-TOBACCO USER [facility] Advance Directives: All historical and current Section Date Range: From patient's date of to the date document was created. This section includes ALL of a patient's completed or amended VA Advance and Rescinded Directives. The entries below indicate that a directive exists for the patient, but an actual copy is not included with this document. The data comes from all [place] facilities. Date Advance Directives Provider Source Nov 13, 2017 ADVANCE DIRECTIVE MUSA STRINGER [place] [facility] [place] [facility] Nov 12, 2017 GOALS & PREFERENCES TO MUSA STRINGER AR C NTRL WSTRN INFORM LIFE-SU[facility]AINING [facility] TREATMENT PLAN Radiology Reports: +/- 30 days [...] the Encounter. The data comes from all [place] treatment facilities. Date/Time Radiology Report Provider Source May 16, 2022 08:47 KNEE 2 VIEWS (RIGHT): RADIOLOGY,OUTSIDE [facility] TRL WSTRN RENEE WALTER [id number] -[birth year], [birth year] 7 M SERVICE [facility] Exm Date: MAY 16, 2022@08:47 Req Phys: JULIANNE WILLINGHAM Pat Loc: ZZCWM/NO/ NEPHROLOGY TEL-X (Re Img Loc: [facility]/BUILDING 1 Service: Unknown (Case [id number] COMPLETE) KNEE 3 VIEWS(RIGHT) (RAD Det eder) CPT:65978 Proc Modifiers : RIGHT Reason for Study: pain (Case 250 COMPLETE) KNEES BILAT STANDING (RAD De tailed) CPT:85580 (Case 251 COMPLETE) KNEE 3 VIEWS (LEFT) (RAD Det eder) CPT:07201 Proc Modifiers : LEFT Clinical History: Report Status: Verified Date Reported: MAY 16, 2022 Date Verified: MAY 16, 2022 Motor Vehicles Inspector E-Sig: Report: KNEE 3 VIEWS(RIGHT) [PRINTSET], KNEES BILAT STA NDING [PRINTSET], KNEE 3 VIEWS (LEFT) [PRINTSET] INDICATION: pain COMPARISON: None TECHNIQUE: 9 views of the bilateral knees, subm itted to the [place] National Teleradiology Program (NTP) for interp retation. Impression: RIGHT: No acute fracture or traumatic malalignm ent. 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 Moderate degenerative changes of the patellofem oral knee compartment. Moderate knee joint effusion LEFT: No acute fracture or traumatic alignment. Advanced tricompartmental degenerative changes. No knee joint effusion READING PHYSICIAN: Rosales Cartagena MD -[id number] 05/16/2022 14:17 EST [facility] National Teleradiology Program [phone] (For Medical Practitioner Use Only ) Attention Patients / Veterans: If you have ques tions or concerns about these test results, please contact your [facility] provider or primary care team. Primary Diagnostic Code: NO ALERT REQUIRED Primary Interpreting Staff: RADIOLOGY,OUTSIDE SERVICE, Staff Physician / Encounter Notes: All associated encounter notes This section contains the clinical notes associated to the Encounter. Date/Time Encounter Note(s) Provider Source May 09, 2022 10:53 AM SOCIAL WORK NOTE: SANGEETHA ZULUAGA AR CNTR L WSTRN LOCAL TITLE: SOCIAL WORK NOTE M JAD [facility] STANDARD TITLE: SOCIAL WORK NOTE DATE OF NOTE: MAY 09, 2022@10:53 ENTRY DATE: MAY 09, 2022@10:53:15 AUTHOR: SANGEETHA ZULUAGA EXP COSIGNER: URGENCY: STATUS: COMPLETED Party Bus Driver left VM message in reaponse to VM from Piedad gross /pat/ CRISTINO HANKINS LICENSED INDEPENDENT CLINICAL EPIDEMIOLOGY INTERNSHIP Signed: 05/09/2022 10:56
[2022-06-03 15:59] LABS: Alanine Aminotransferase 24 U/L (0-40); Albumin Level 3.4 g/dL (3.5-5.0); Alkaline Phosphatase 46 U/L (39-117); Anion Gap 16 (12-20); Aspartate Amino Transferase 19 U/L (5-37); B Type Natriuretic Peptide 147 pg/mL (<100); Bilirubin Direct 0.3 mg/dL (0.0-0.5); Blood Urea Nitrogen 48 mg/dL (9-16); Calcium 8.6 mg/dL (8.4-10.2); Carbon Dioxide 24 mmol/L (22-29); Chloride 102 mmol/L (96-108); Creatinine Clr Calc Pharmacy 43.6; Estimated Glomerular Filt Rate 27; Glucose Fasting 205 mg/dL (60-99); Glucose Random 203 mg/dL (60-115); Potassium 4.9 mmol/L (3.3-5.1); Sodium 137 mmol/L (135-145); Total Protein 5.2 g/dL (6.5-8.0)
--- OUTSIDE RECORDS SUMMARY | 2022-06-03 15:59 | XMS_ITS | Encounter Summary ---
:1945 Author Organization Department [facility] Address [address] [place] [address] Support Name Relationship Address Phone ROLANDO LAWLER Unavailable [address] [facility] [place] [address] KELSEY HAILE Unavailable [address] [facility] [place] [address] Insurance Providers: All historical and current Section [...] MEDICARE MEDICARE PART Apr 25, PART A [id number] [phone] LANGLA ND PATIENT (WNR) (M) A 2010 RENEE AVALOS MEDICARE MEDICARE PART Apr 25, PART B [id number] [id number] LANGLA ND PATIENT (WNR) (M) B 2010 RENEE AVALOS MEDICARE MEDICARE PART Apr 25, PART A [id number] BRAEDENLA ND PATIENT (WNR) (M) A 2010 RENEE AVALOS MEDICARE MEDICARE PART Apr 25, PART B [id number] BRAEDENLA ND PATIENT (WNR) (M) B 2010 RENEE AVALOS Selected Encounter This section includes the information on record at [place] for the Encounter. Date/Time Encounter Type Encounter Reason Provider Source Description May 01, 2022 HC PRO PHONE TELEPHONE CASE ICD-10-CM Z71.9 SE ELSY ZULUAGA 02:19 PM CALL 11-20 MIN MANAGEMENT Counseling, [place] unspecified with Provider Comments: Counseling, unspecified IHE Encounter Template Text not used by VA Assessments - Encounter Diagnoses This section includes the primary and secondary diagnoses documented for the Encounter. Date/Time Primary/Secondary Diagnosis Name Provider Source Diagnosis May 01, 2022 PRIMARY Counseling, PIOTR ZULUAGA [facility] WSTR N 02:19 PM unspecified [place] [facility] Plan of Treatment: Future Appointments (+ 6 months) and Future Tests (+/- 45 days) The Plan of Treatment section includes future care activities for the patient from all [place] treatmentfacilities. This section includes future appointments and future orders which are active, pending orscheduled.Future Appointments This section includes appointments that were scheduled to occur 6 months from the date of the Encounter, up to a maximum of 20 appointments. The data comes from all [place] treatment facilities. Appointment Date/Time Appointment Type Appointment Facili ty Name May 16, 2022 09:00 [facility] [place] [facility] May 16, 2022 10:00 AM AMBULATORY - REHAB MEDICINE [facility] W STRN [place] [facility] Jun 18, 2022 11:30 AM AMBULATORY - REHAB MEDICINE [facility] W STRN [place] [facility] Jun 25, 2022 11:30 AM AMBULATORY - REHAB MEDICINE [facility] W STRN [place] [facility] Jul 04, 2022 01:00 PM AMBULATORY - REHAB MEDICINE [facility] STRN [place] [facility] Oct 30, 2022 10:00 AM [facility] [place] [facility] Vital Signs: All taken on the encounter date This section contains inpatient and outpatient Vital Signs collected on the date of the Encounter. Date/Time Temperature Pulse Blood Respiratory SP02 Pain Height Weight Eric dy Source Pressure Rate Mass Index May 01 F 72 124/71 20 /min 97 % 0 373 lb 55 [place] 2021 10:25 /min mm[Hg] [facility] [place] [facility] Social History: Smoking Status (Most current) and Tobacco Use (All prior to encounter date) This section includes the most current, and the historical, smoking and tobacco-related health factors from the [place] facility where the Encounter took place.Current Smoking Status This section includes the most current smoking, or tobacco-related health factor, from the [place] facility where the Encounter took place. Date/Time Current Smoking Status Comment Facility May 09, 2020 01:30 PM VA-TOBACCO NEVER USED VA C NTRL [place] [facility] Tobacco Use History This section includes a history of the smoking, or tobacco- related health factors, that were collected on or before the date of the Encounter. The data comes from the [place] facility where the Encounter took place. Date/Time Smoking Status/Tobacco Use Comment [facility] Feb 11, 2020 03:54 PM VA-TOBACCO NEVER USED VA C NTRL [place] [facility] Feb 05, 2019 08:10 AM VA-TOBACCO FORMER USER VA CNTRL [place] [facility] Feb 05, 2019 08:10 AM VA-TOBACCO QUIT 15 YRS OR [facility] [place] MORE [facility] Apr 14, 2017 02:07 PM QUIT TOBACCO USE > 7 YEARS [place] [place] [facility] Jan 05, 2016 02:32 PM LIFETIME NON-TOBACCO USER [place] [facility] [place] [facility] Nov 29, 2009 09:18 AM LIFETIME NON-TOBACCO USER [place] [facility] [place] [facility] Advance Directives: All historical and current Section Date Range: From patient's date of to the date document was created. This section includes ALL of a patient's completed or amended VA Advance and Rescinded Directives. The entries below indicate that a directive exists for the patient, but an actual copy is not included with this document. The data comes from all [place] facilities. Date Advance Directives Provider Source Nov 13, 2017 ADVANCE DIRECTIVE MUSA STRINGER [place] [facility] [place] [facility] Nov 12, 2017 GOALS & PREFERENCES TO MUSA STRINGER VA C NTRL W[place] INFORM LIFE-SUSTAINING [place] [facility] TREATMENT PLAN Radiology Reports: +/- 30 days [...] the Encounter. The data comes from all [place] treatment facilities. Date/Time Radiology Report Provider Source May 16, 2022 08:47 KNEE 2 VIEWS (RIGHT): RADIOLOGY,OUTSIDE VA CN TRL WSTRN RENEE WALTER [id number] -[birth year] 7 [facility] Exm Date: MAY 16, 2022@08:47 Req Phys: MAULIKJULIANNE Bauer Pat Loc: ZZCWM/NO/ NEPHROLOGY TEL-X (Re Img Loc: [facility]/BUILDING 1 Service: Unknown (Case 249 COMPLETE) KNEE 3 VIEWS(RIGHT) (RAD Det eder) CPT:06837 Proc Modifiers : RIGHT Reason for Study: pain (Case 250 COMPLETE) KNEES BILAT STANDING (RAD De tailed) CPT:64430 (Case 251 COMPLETE) KNEE 3 VIEWS (LEFT) (RAD Det eder) CPT:56165 Proc Modifiers : LEFT Clinical History: Report Status: Verified Date Reported: MAY 16, 2022 Date Verified: MAY 16, 2022 Getter Welder E-Sig: Report: KNEE 3 VIEWS(RIGHT) [PRINTSET], KNEES BILAT STA NDING [PRINTSET], KNEE 3 VIEWS (LEFT) [PRINTSET] INDICATION: pain COMPARISON: None TECHNIQUE: 9 views of the bilateral knees, subm itted to the [place] National Teleradiology Program (NTP) for interp retation. Impression: RIGHT: No acute fracture or traumatic malalignm ent. 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 Moderate degenerative changes of the patellofem oral knee compartment. Moderate knee joint effusion LEFT: No acute fracture or traumatic alignment. Advanced tricompartmental degenerative changes. No knee joint effusion READING PHYSICIAN: Rosales Cartagena MD -[id number] 05/16/2022 14:17 EST [facility] National Teleradiology Program [phone] (For Medical Practitioner Use Only ) Attention Patients / Veterans: If you have ques tions or concerns about these test results, please contact your o ering provider or primary care team. Primary Diagnostic Code: NO ALERT REQUIRED Primary Interpreting Staff: RADIOLOGY,OUTSIDE SERVICE, Staff Physician / Encounter Notes: All associated encounter notes This section contains the clinical notes associated to the Encounter. Date/Time Encounter Note(s) Provider Source May 01, 2022 02:19 PM SOCIAL WORK NOTE: SANGEETHA ZULUAGA [place] CNTR L WSTRN LOCAL TITLE: SOCIAL WORK NOTE M [facility] STANDARD TITLE: SOCIAL WORK NOTE DATE OF NOTE: MAY 01, 2022@14:19 ENTRY DATE: MAY 01, 2022@14:19:59 AUTHOR: SANGEETHA ZULUAGA EXP COSIGNER: URGENCY: STATUS: COMPLETED Trapeze Performer reached out to to follow-up from previous VM message. Trapeze Performer conducted three-way call to [facility]. Trapeze Performer left VM message with 's contact infor gm. Encouraged Crow[place] to return call to Shanda at [facility]. Appre ciative. Encouraged to contact VA prn. /pat/ CRISTINO HANKINS LICENSED INDEPENDENT CLINICAL SURVEILLANCE SENSOR OPERATOR Signed: 05/01/2022 14:30
--- OUTSIDE RECORDS SUMMARY | 2022-06-03 15:59 | XMS_ITS | Encounter Summary ---
:1945 Author Organization Department [facility] Address [address] [place] [address] Support Name Relationship Address Phone ROLANDO LAWLER Unavailable [address] [facility] [place] [address] KELSEY HAILE Unavailable [address] [facility] [place] [address] Insurance Providers: All historical and current Section [...] MEDICARE MEDICARE PART Apr 25, PART A [id number] [phone] LANGLA ND PATIENT (WNR) (M) A 2010 REENE AVALOS MEDICARE MEDICARE PART Apr 25, PART B [id number] [phone] LANGLA ND PATIENT (WNR) (M) B 2010 RENEE AVALOS MEDICARE MEDICARE PART Apr 25, PART A [id number] BRAEDENLA ND PATIENT (WNR) (M) A 2010 RENEE AVALOS MEDICARE MEDICARE PART Apr 25, PART B [id number] [id number] BRAEDENLA ND PATIENT (WNR) (M) B 2010 RENEE AVALOS Selected Encounter This section includes the information on record at [place] for the Encounter. Date/Time Encounter Type Encounter Description Reason Provider Source May 01, 2022 01:53 Outpatient Encounter TELEPHONE CASE PM MANAGEMENT IHE Encounter Template Text not used by VA Plan of Treatment: Future Appointments (+ 6 months) and Future Tests (+/- 45 days) The Plan of Treatment section includes future care activities for the [facility] This section includes future appointments and future orders which are active, pending orscheduled.Future Appointments This section includes appointments that were scheduled to occur 6 months from the date of the Encounter, up to a maximum of 20 appointments. The data comes from all [place] treatment facilities. Appointment Date/Time Appointment Type Appointment Facili ty Name May 16, 2022 09:00 AM AMBULATORY - NONE [place] [place] [facility] May 16, 2022 10:00 AM AMBULATORY - REHAB MEDICINE [place]TRL [place] [facility] Jun 18, 2022 11:30 AM AMBULATORY - REHAB MEDICINE [place] CNTRL [place] [facility] Jun 25, 2022 11:30 AM AMBULATORY - REHAB MEDICINE [place] CNTRL [place] [facility] Jul 04, 2022 01:00 PM AMBULATORY - REHAB MEDICINE [place] [facility]TRL [place] [facility] Oct 30, 2022 10:00 AM AMBULATORY - MEDICINE [facility] [place] [facility] Vital Signs: All taken on the encounter date This section contains inpatient and outpatient Vital Signs collected on the date of the Encounter. Date/Time Temperature Pulse Blood Respiratory SP02 Pain Height Weight Eric dy Source Pressure Rate Mass Index May 01 F 72 124/71 20 /min 97 % 0 373 lb 55 [place] 2021 10:25 /min mm[Hg] CNTRL [place] [facility] Social History: Smoking Status (Most current) and Tobacco Use (All prior to encounter date) This section includes the most current, and the historical, smoking and tobacco-related health factors from the [place] facility where the Encounter took place.Current Smoking Status This section includes the most current smoking, or tobacco-related health factor, from the [place] facility where the Encounter took place. Date/Time Current Smoking Status Comment Facility May 09, 2020 01:30 PM VA-TOBACCO NEVER USED [facility] NTRL WSTRN [facility] Tobacco Use History This section includes a history of the smoking, or tobacco- related health factors, that were collected on or before the date of the Encounter. The data comes from the [place] facility where the Encounter took place. Date/Time Smoking Status/Tobacco Use Comment [facility] it Feb 11, 2020 03:54 PM VA-TOBACCO NEVER USED [place] C NTRL [place] [facility] Feb 05, 2019 08:10 AM VA-TOBACCO FORMER USER [place] CNTRL [place] [facility] Feb 05, 2019 08:10 AM VA-TOBACCO QUIT 15 YRS OR [place] CNTRL [place] MORE [facility] Apr 14, 2017 02:07 PM QUIT TOBACCO USE > 7 YEARS [place]TRL [place] [facility] Jan 05, 2016 02:32 PM LIFETIME NON-TOBACCO USER [place] [facility]L [place] [facility] Nov 29, 2009 09:18 AM LIFETIME NON-TOBACCO USER [place] [facility]L [place] [facility] Advance Directives: All historical and current Section Date Range: From patient's date of to the date document was created. This section includes ALL of a patient's completed or amended VA Advance and Rescinded Directives. The entries below indicate that a directive exists for the patient, but an actual copy is not included with this document. The data comes from all [place] facilities. Date Advance Directives Provider Source Nov 13, 2017 ADVANCE DIRECTIVE MUSA STRINGER [place] CNTRL [place] [facility] Nov 12, 2017 GOALS & PREFERENCES TO MUSA STRINGER NH C NTRL WSTR[place] INFORM LIFE-SUSTAINING [place] [facility] TREATMENT PLAN Radiology Reports: +/- [...] the Encounter. The data comes from all [place] treatment facilities. Date/Time Radiology Report Provider Source May 16, 2022 08:47 KNEE 2 VIEWS (RIGHT): RADIOLOGY,OUTSIDE [facility] TRL WSTRN ISAMAR RENEE LAWLER LYNDA [id number] -[birth year] 7 M SERVICE [facility] Exm Date: MAY 16, 2022@08:47 Req Phys: JULIANNE WILLINGHAM Pat Loc: ZZCWM/NO/ NEPHROLOGY TEL-X (Re Img Loc: [facility]/BUILDING 1 Service: Unknown (Case 249 COMPLETE) KNEE 3 VIEWS(RIGHT) (RAD Det eder) CPT:56313 Proc Modifiers : RIGHT Reason for Study: pain (Case 250 COMPLETE) KNEES BILAT STANDING (RAD De tailed) CPT:01794 (Case 251 COMPLETE) KNEE 3 VIEWS (LEFT) (RAD Det eder) CPT:66313 Proc Modifiers : LEFT Clinical History: Report Status: Verified Date Reported: MAY 16, 2022 Date Verified: MAY 16, 2022 Organ Pipe Maker Metal E-Sig: Report: KNEE 3 VIEWS(RIGHT) [PRINTSET], KNEES BILAT STA NDING [PRINTSET], KNEE 3 VIEWS (LEFT) [PRINTSET] INDICATION: pain COMPARISON: None TECHNIQUE: 9 views of the bilateral knees, subm itted to the [place] National Teleradiology Program (NTP) for interp retation. Impression: RIGHT: No acute fracture or traumatic malalignm ent. 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 Moderate degenerative changes of the patellofem oral knee compartment. Moderate knee joint effusion LEFT: No acute fracture or traumatic alignment. Advanced tricompartmental degenerative changes. No knee joint effusion READING PHYSICIAN: Rosales Cartagena MD -[id number] 05/16/2022 14:17 EST [facility] National Teleradiology Program [phone] (For Medical Practitioner Use Only ) Attention [...] Encounter Note(s) Provider Source May 01, 2022 01:53 PM SOCIAL WORK NOTE: SANGEETHA ZULUAGA [place] CNTR L WSTR[place] LOCAL TITLE: SOCIAL WORK NOTE [place] [facility] STANDARD TITLE: SOCIAL WORK NOTE DATE OF NOTE: MAY 01, 2022@13:53 ENTRY DATE: MAY 01, 2022@13:53:27 AUTHOR: SANGEETHA ZULUAGA EXP COSIGNER: URGENCY: STATUS: COMPLETED late note [employer] Charger Insulation left message on 04/30 requesting return call. Provided contact information. /pat/ CRISTINO HANKINS LICENSED INDEPENDENT CLINICAL CORPORATE TRAVEL CONSULTANT Signed: 05/01/2022 13:54
--- OUTSIDE RECORDS SUMMARY | 2022-06-03 15:59 | XMS_ITS ---
:1945 Author Organization Department [facility] rs Address [address] [place] [address] Support Name Relationship Address Phone ROLANDO LAWLER Unavailable [address] [place] [address] KELSEY HAILE Unavailable [address] [place] [address] Insurance Providers: All historical and current Section [...] MEDICARE MEDICARE PART Apr 25, PART A [id number] BRAEDENLA ND PATIENT (WNR) (M) A 2010 RENEE AVALOS MEDICARE MEDICARE PART Apr 25, PART B [id number] BRAEDENLA ND PATIENT (WNR) (M) B 2010 RENEE AVALOS MEDICARE MEDICARE PART Apr 25, PART A [id number] BENTLEY ND PATIENT (WNR) (M) A 2010 RENEE AVALOS MEDICARE MEDICARE PART Apr 25, PART B [id number] BENTLEY ND PATIENT (WNR) (M) B 2010 RENEE AVALOS Selected Encounter This section includes the information on record at [place] for the Encounter. Date/Time Encounter Type Encounter Reason Provider Source Description May 01, 2022 OFFICE O/P EST RENAL/NEPHROL(EXC ICD-10-CM I12.9 DAILY SIGALA 10:00 AM MOD 30-39 MIN EPT DIALYSIS) Hypertensive CHAPITO A chronic kidney disease w stg 1-4/unsp chr kdny with Provider Comments: Hypertensive Chronic Kidney Disease with Stage 1 through Stage 4 Chronic Kidney Disease, or unspecified Chronic Kidney Disease IHE Encounter Template Text not used by [place] Assessments - Encounter Diagnoses This section includes the primary and secondary diagnoses documented for the Encounter. Date/Time Primary/Secondary Diagnosis Name Provider Source Diagnosis May 01, 2022 PRIMARY Hypertensive DAILY SIMS [place] [facility] 10:39 AM chronic kidney [facility] [place] [facility] disease w stg 1-4/unsp chr kdny May 01, 2022 SECONDARY Anemia in chronic DAILY SIMS [place] [facility] 10:39 AM kidney disease [facility] [place] [facility] May 01, 2022 SECONDARY Chronic kidney BETHANY,DAILY [facility] WST RN 10:39 AM disease, stage 3 [facility] [place] [facility] unspecified May 01, 2022 SECONDARY Hyperlipidemia, DAILY SIMS [place] [facility] WS TRN 10:39 AM unspecified [facility] [place] [facility] May 01, 2022 SECONDARY Obesity, DAILY SIMS [place] [facility] 10:39 AM unspecified [facility] [place] [facility] May 01, 2022 SECONDARY Personal history DAILY SIMS [place] [facility] 10:39 AM of malignant [place] [facility] neoplasm of [facility] Plan of Treatment: Future Appointments (+ 6 months) and Future Tests (+/- 45 days) The Plan of Treatment section includes future care activities for the patient from all [place] treatmentfacilities. This section includes future appointments and future orders which are active, pending orscheduled.Future Appointments This section includes appointments that were scheduled to occur 6 months from the date of the Encounter, up to a maximum of 20 appointments. The data comes from all [place] treatment facilities. Appointment Date/Time Appointment Type Appointment Facili ty Name May 16, 2022 09:00 AM AMBULATORY - NONE [place] [facility] [place] [facility] May 16, 2022 10:00 AM [facility] [place] [facility] Jun 18, 2022 11:30 AM AMBULATORY - REHAB MEDICINE [place] [facility] [place] [facility] [facility] Jun 25, 2022 11:30 AM AMBULATORY - REHAB MEDICINE [place] [facility] [place] [facility] [facility] Jul 04, 2022 01:00 PM AMBULATORY - REHAB MEDICINE [place] [facility] [place] [facility] [facility] Oct 30, 2022 10:00 AM AM[place]ULATORY - [place]IC[place] [facility] [place] [facility] Vital Signs: All taken on the encounter date This section contains inpatient and outpatient Vital Signs collected on the date of the Encounter. Date/Time Temperature Pulse Blood Respiratory SP02 Pain Height Weight Eric dy Source Pressure Rate Mass Index May 01 F 72 124/71 20 /min 97 % 0 373 lb 55 [place] 2021 10:25 /min mm[Hg] [facility] AM [place] [facility] Social History: Smoking Status (Most current) and Tobacco Use (All prior to encounter date) This section includes the most current, and the historical, smoking and tobacco-related health factors from the [place] facility where the Encounter took place.Current Smoking Status This section includes the most current smoking, or tobacco-related health factor, from the [place] facility where the Encounter took place. Date/Time Current Smoking Status Comment Facility May 09, 2020 01:30 PM VA-TOBACCO NEVER USED [place] C [facility]L [place] [facility] Tobacco Use History This section includes a history of the smoking, or tobacco- related health factors, that were collected on or before the date of the Encounter. The data comes from the [place] facility where the Encounter took place. Date/Time Smoking Status/Tobacco Use Comment [facility] Feb 11, 2020 03:54 PM VA-TOBACCO NEVER USED [place] C [facility] [facility] Feb 05, 2019 08:10 AM VA-TOBACCO FORMER USER [place] [facility] [place] [facility] Feb 05, 2019 08:10 AM VA-TOBACCO QUIT 15 YRS OR [facility] [place] MORE [facility] Apr 14, 2017 02:07 PM QUIT TOBACCO USE > 7 YEARS [facility] [place] [facility] Jan 05, 2016 02:32 PM LIFETIME NON-TOBACCO USER [place] [facility] [place] [facility] Nov 29, 2009 09:18 AM LIFETIME NON-TOBACCO USER [place] [facility] [place] [facility] Advance Directives: All historical and current Section Date Range: From patient's date of to the date document was created. This section includes ALL of a patient's completed or amended [place] Advance and Rescinded Directives. The entries below indicate that a directive exists for the patient, but an actual copy is not included with this document. The data comes from all [place] facilities. Date Advance Directives Provider Source Nov 13, 2017 ADVANCE DIRECTIVE [facility] [facility] Nov 12, 2017 GOALS & PREFERENCES TO KAYLYN STRINGERIDI Nataly [place] C [facility] INFORM LIFE-SUSTAINING [facility] TREATMENT PLAN Radiology Reports: +/- [...] the Encounter. The data comes from all [place] treatment facilities. Date/Time Radiology Report Provider Source May 16, 2022 08:47 KNEE 2 VIEWS (RIGHT): RADIOLOGY,OUTSIDE [place] [facility] RENEE WALTER [id number] -[birth year], [birth year] 6 M SERVICE [facility] Exm Date: MAY 16, 2022@08:47 Req Phys: JULIANNE WILLINGHAM Pat Loc: ZZCWM/NO/ NEPHROLOGY TEL-X (Re Img Loc: [facility]ING 1 Service: Unknown (Case [id number] COMPLETE) KNEE 3 VIEWS(RIGHT) (RAD Det eder) CPT:77987 Proc Modifiers : RIGHT Reason for Study: pain (Case 250 COMPLETE) KNEES BILAT STANDING (RAD De tailed) CPT:50762 (Case 251 COMPLETE) KNEE 3 VIEWS (LEFT) (RAD Det eder) CPT:63045 Proc Modifiers : LEFT Clinical History: Report Status: Verified Date Reported: MAY 16, 2022 Date Verified: MAY 16, 2022 Oven Press Tender E-Sig: Report: KNEE 3 VIEWS(RIGHT) [PRINTSET], KNEES BILAT STA NDING [PRINTSET], KNEE 3 VIEWS (LEFT) [PRINTSET] INDICATION: pain COMPARISON: None TECHNIQUE: 9 views of the bilateral knees, subm itted to the [place] National Teleradiology Program (NTP) for interp retation. Impression: RIGHT: No acute fracture or traumatic malalignm ent. 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 Moderate degenerative changes of the patellofem oral knee compartment. Moderate knee joint effusion LEFT: No acute fracture or traumatic alignment. Advanced tricompartmental degenerative changes. No knee joint effusion READING PHYSICIAN: Rosales Cartagena MD -[id number] 01 05/16/2022 14:17 EST [facility] National Teleradiology Program [phone] (For Medical Practitioner Use Only ) Attention [...] Encounter Note(s) Provider Source May 01, 2022 08:28 NEPHROLOGY E & M NOTE: ANANDA SIMS [place] [facility] AM LOCAL TITLE: NEPHROLOGY NOTE [place] [facility] STANDARD TITLE: NEPHROLOGY E & M NOTE DATE OF NOTE: MAY 01, 2022@08:28 ENTRY DATE: MAY 01, 2022@08:28:58 AUTHOR: ANANDA SIMS EXP COSIGNER: URGENCY: STATUS: COMPLETED Consultation Problems:CKD stage 3 Subjective Information:76 year old male with a history of GI cancer( for which he who has been treated with chemotx), hypertens ion, obesity and CKD stage 3 presenting for continued management of h is renal disease and related problems. the patient denies any new problems. The patient is back [facility]. He states he is doing quite well. He denies any problems with his present medical regimen. He says he has a good appetite and they feed him well. He states that is why he is gaining weight. The patient denies chest pain, SOB, chills/fever or rash. He states he swim and water walk as his fo rm of exercise. Medications: Active and Recently Outpatient Medicatio ns (excluding Supplies): Active Non-VA Medications Status 1) Non-VA ASCORBIC ACID TAB BY MOUTH DAILY ACTIV E 2) Non-VA ASPIRIN 81MG EC TAB 81MG BY MOUTH ONCE DAILY ACTIVE 3) Non-VA COENZYME Q10 CAP/TAB DAILY ACTIVE 4) Non-VA FAMOTIDINE 20MG TAB 20MG BY MOUTH ONCE DAILY ACTIVE 5) Non-VA FISH OIL (NO NEW STARTS - ON BACKORDER ) ACTIVE CAP,ORAL BY MOUTH DAILY 6) Non-VA L-CARNITINE TAB BY MOUTH DAILY ACTIVE 7) Non-VA LACTOBACILLUS ACIDOPHILUS TAB 1 CAPSUL E BY ACTIVE MOUTH ONCE DAILY 8) Non-VA LORATADINE 10MG TAB 10MG BY MOUTH ONCE DAILY ACTIVE 9) Non-VA MAGNESIUM OXIDE TAB BY MOUTH DAILY ACT ERIKA 10) Non-VA METOPROLOL SUCCINATE 100MG SA TAB 100 MG BY ACTIVE MOUTH ONCE DAILY 11) Non-VA MULTIVITAMIN/MINERALS CAP/TAB 1 TABLE T BY ACTIVE MOUTH DAILY 12) Non-VA OTHER CAP/TAB HOMOCYSTEINE DAILY ACTI VE 13) Non-VA OTHER CAP/TAB RIBOSE DAILY ACTIVE 14) Non-VA VITAMIN D3 (CHOLECALCIFEROL) TAB BY M OUTH ACTIVE DAILY 15) Non-VA VITAMIN E CAP,ORAL BY MOUTH DAILY ACT ERIKA Review Of Systems: Vital Signs: As above General:Morbidly obese male, alert, cooperative in NAD HEENT: NECK:supple; LUNGS:clear Heart:RRR; 2+systolic murmur; ABD:Morbidly obese abdomin; soft; Ext:1+ lower leg edema; SKIN: Assessment and Plans: Other Areas to address in e evaluation and management of the patient's CKD and to reduce renal disease progression is as follow s: #1, CKD stage 3: The patient is without uremic s x. The patient has lab reports from the [facility] N ov 2021. It showed a normal bicarb (28), potassium(4.2). His GFR was 47 with a crea tinine of 1.46. His urine microalb/cr ratio was 22.6.His renal function is stable. No med changes. #2. Hypertension:The patient's blood pressure wa s 124/71 p=72. Will recommend that the patient continue to limit salt in his d iet, exercise and continue to take his BP meds as prescribed. #3. Hyperlipidemia: the patient lipid studies fr om October 24 showed a normal cholesterol of 154, LDL;of 103 anf HDL of 40. He is presently on fish oil but not statin. 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 The patient is presently on multivitamin. the patien t is not a candidate for procrit/epogen therapy at this time. #5. CKD-MBD: the patient's recent labs from October showed a alkaline phosphatase of 40, PO4(3.8), calcium(9.0 ), Mag wa 2.2. In Jun his PTH(113) and VitD was 34.. Will obtain magnesium in the f uture as part of his baseline bone studies. #6. Nutritional state: the patient's albumin was 3.6(October) is normal. the patient weight was 367 is no w 373!!!!!. He is encouraged to exercise, limit his intake and adhere to a heart healthy low fat t. . This was a 20 minute visit > 50% of which was sp ent in counseling and coordination of care. All available test results were reviewed with veronica lockhart. Medication Reconciliation: Outpatient: Has the patient been taking medications as docu mented in the EMLR? YES: The patient has been taking medications as documented in the EMLR. Essential Medication List for Review used to co mplete this medication reconciliation. INCLUDED IN THIS LIST: Alphabetical list of act erika outpatient prescriptions dispensed from this VA (local) [...] whether with a VA or non-VA provider. /pat/ ANANDA SIMS M.D. [employer] Signed: 05/01/2022 10:39
--- OUTSIDE RECORDS SUMMARY | 2022-06-03 16:00 | XMS_ITS ---
:1945 Author Organization Department of [facility] rs Address [address] [place] [address] Support Name Relationship Address Phone ROLANDO LAWLER Unavailable [address] [phone] [place] [address] KELSEY HAILE Unavailable [address] [place] [address] Insurance Providers: All historical and current Section [...] MEDICARE MEDICARE PART Apr 25, PART A [id number] [id number] LANGLA ND PATIENT (WNR) (M) A 2010 RENEE AVALOS MEDICARE MEDICARE PART Apr 25, PART B [id number] [phone] LANGLA ND PATIENT (WNR) (M) B 2010 RENEE AVALOS MEDICARE MEDICARE PART Apr 25, PART B [id number] BRAEDENLA ND PATIENT (WNR) (M) B 2010 RENEE AVALOS MEDICARE MEDICARE PART Apr 25, PART A [id number] BRAEDENLA ND PATIENT (WNR) (M) A 2010 RENEE AVALOS Selected Encounter This section includes the information on record at [place] for the Encounter. Date/Time Encounter Type Encounter Description Reason Provider Source Apr 22, 2022 08:15 Outpatient Encounter ADMIN PAT ACTIVTIES AM (MASNONCT) IHE Encounter Template Text not used by [place] Plan of Treatment: Future Appointments (+ 6 months) and Future Tests (+/- 45 days) The Plan of Treatment section includes future care activities for the patient [facility] [place] [facility] This section includes future appointments and future orders which are active, pending orscheduled.Future Appointments This section includes appointments that were scheduled to occur 6 months from the date of the Encounter, up to a maximum of 20 appointments. The data comes from all [place] treatment facilities. Appointment Date/Time Appointment Type Appointment Facili ty Name May 01, 2022 10:00 AM AMBULATORY - [place]ICINE [place] [facility] [place] [facility] May 16, 2022 09:00 AM AMBULATORY - NONE [place] [facility] [place] [facility] May 16, 2022 10:00 AM AMBULATORY - REHAB MEDICINE [place] [facility] [place] [facility] Jun 18, 2022 11:30 AM AMBULATORY - REHAB MEDICINE [place] [facility] [place] [facility] Jun 25, 2022 11:30 AM AMBULATORY - REHAB MEDICINE [place] [facility] [place] [facility] Jul 04, 2022 01:00 PM AMBULATORY - REHAB MEDICINE [place] [facility] [place] [facility] Social History: Smoking Status (Most current) and Tobacco Use (All prior to encounter date) This section includes the most current, and the historical, smoking and tobacco-related health factors from the [place] facility where the Encounter took place.Current Smoking Status This section includes the most current smoking, or tobacco-related health factor, from the [place] facility where the Encounter took place. Date/Time Current Smoking Status Comment Facility May 09, 2020 01:30 PM VA-TOBACCO NEVER USED [place] C NTRL [place] [facility] Tobacco Use History This section includes a history of the smoking, or tobacco- related health factors, that were collected on or before the date of the Encounter. The data comes from the [place] facility where the Encounter took place. Date/Time Smoking Status/Tobacco Use Comment [facility] Feb 11, 2020 03:54 PM VA-TOBACCO NEVER USED [place] C [facility]TRL [place] [facility] Feb 05, 2019 08:10 AM VA-TOBACCO FORMER USER [place] [facility] [place] [facility] Feb 05, 2019 08:10 AM VA-TOBACCO QUIT 15 YRS OR [facility] [place] [place] MORE [facility] Apr 14, 2017 02:07 PM QUIT TOBACCO USE > 7 YEARS [place] [facility] [place] [facility] Jan 05, 2016 02:32 PM LIFETIME NON-TOBACCO USER [place] [facility] [place] [facility] Nov 29, 2009 09:18 AM LIFETIME NON-TOBACCO USER [place] [facility] [place] [facility] Advance Directives: All historical and current Section Date Range: From patient's date of to the date document was created. This section includes ALL of a patient's completed or amended [place] Advance and Rescinded Directives. The entries below indicate that a directive exists for the patient, but an actual copy is not included with this document. The data comes from all [place] facilities. Date Advance Directives Provider Source Nov 13, 2017 ADVANCE DIRECTIVE MUSA STRINGER [place] CN[facility] [facility] Nov 12, 2017 GOALS & PREFERENCES TO MUSA STRINGER [place] C NTRL WSTR[place] INFORM LIFE-SUSTAINING [facility] [facility] TREATMENT PLAN Radiology Reports: +/- 30 [...] the Encounter. The data comes from all [place] treatment facilities. Date/Time Radiology Report Provider Source May 16, 2022 08:47 KNEE 2 VIEWS (RIGHT): RADIOLOGY,OUTSIDE [facility] TRL WSTRN ISAMAR RENEE LAWLER LYNDA [id number] -[birth year] 7 M SERVICE [facility] Exm Date: MAY 16, 2022@08:47 Req Phys: JULIANNE WILLINGHAM Pat Loc: ZZCWM/NO/ NEPHROLOGY TEL-X (Re Img Loc: [facility]BUILD[facility] 1 Service: Unknown (Case 249 COMPLETE) KNEE 3 VIEWS(RIGHT) (RAD Det eder) CPT:30882 Proc Modifiers : RIGHT Reason for Study: pain (Case 250 COMPLETE) KNEES BILAT STANDING (RAD De tailed) CPT:00309 (Case 251 COMPLETE) KNEE 3 VIEWS (LEFT) (RAD Det eder) CPT:57203 Proc Modifiers : LEFT Clinical History: Report Status: Verified Date Reported: MAY 16, 2022 Date Verified: MAY 16, 2022 Newspaper Stuffer E-Sig: Report: KNEE 3 VIEWS(RIGHT) [PRINTSET], KNEES BILAT STA NDING [PRINTSET], KNEE 3 VIEWS (LEFT) [PRINTSET] INDICATION: pain COMPARISON: None TECHNIQUE: 9 views of the bilateral knees, subm itted to the [place] National Teleradiology Program (NTP) for interp retation. Impression: RIGHT: No acute fracture or traumatic malalignm ent. 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 Moderate degenerative changes of the patellofem oral knee compartment. Moderate knee joint effusion LEFT: No acute fracture or traumatic alignment. Advanced tricompartmental degenerative changes. No knee joint effusion READING PHYSICIAN: Rosales Cartagena MD -[id number] 05/16/2022 14:17 EST [facility] National Teleradiology Program [phone] (For Medical Practitioner Use Only ) Attention Patients / Veterans: If you have ques tions or concerns about these test results, please contact your [facility] provider or primary care team. Primary Diagnostic Code: NO ALERT REQUIRED Primary Interpreting Staff: RADIOLOGY,OUTSIDE SERVICE, Staff Physician / Encounter Notes: All associated encounter notes This section contains the clinical notes associated to the Encounter. Date/Time Encounter Note(s) Provider Source Apr 22, 2022 08:15 AM ADMINISTRATIVE NOTE: LASHANDA PARK NTRL WSTRN LOCAL TITLE: CCC: SCHEDULING ADMINISTRATION [place] [facility] STANDARD TITLE: ADMINISTRATIVE NOTE DATE OF NOTE: APR 22, 2022@08:15:50 ENTRY DATE: APR 22, 2022@08:15:50 AUTHOR: LASHANDA PARK EXP COSIGNER: URGENCY: STATUS: COMPLETED Patient Demographics Patient Name: RENEE LAWLER Patient Primary Address: [address] [address]
[place] [address] SSN: [id number] Patient : 1945 Patient Age: 76 Caller/Recipient Relation to Patient: Self Call Back Number: [phone] Progress Note Note Comments: Vet states go es swimming twice a week at the [facility] on Mondays and Fridays and it is advised by [facility] that vet has an medical administrative assistant, nurse or exercise equipment repair technician to assist with getting in and out o f pool etc. Patient Requesting Follow-Up RTC Patient Expects Callback: No Patient Call Date/Time: 2022-04-22 13:13:42 Actions Completed Notified Facility/PACT or Specialty Care Generated message to provider Clinical Contact Center Codes Clinic/Location: V1 CWM PHONE [facility] ADMIN /es/ VIVIAN LICONA 1 [facility] POORNIMA PYLE Signed: 04/22/2022 08:15 Receipt Acknowledged By: * AWAITING SIGNATURE * ASHLEY ESTRADA * AWAITING SIGNATURE * GEMMA CHERRY
--- OUTSIDE RECORDS SUMMARY | 2022-06-03 16:00 | XMS_ITS ---
:1945 Author Organization Department of [facility] rs Address [address] [place] [address] Support Name Relationship Address Phone ROLANDO LAWLER Unavailable [address] [place] [address] KELSEY HAILE Unavailable [address] [place] [address] Insurance Providers: All historical and current Section [...] MEDICARE MEDICARE PART Apr 25, PART A [id number] LANGLA ND PATIENT (WNR) (M) A 2010 RENEE AVALOS MEDICARE MEDICARE PART Apr 25, PART B [id number] [id number] LANGLA ND PATIENT (WNR) (M) B 2010 RENEE AVALOS MEDICARE MEDICARE PART Apr 25, PART A [id number] BRAEDENLA ND PATIENT (WNR) (M) A 2010 RENEE AVALOS MEDICARE MEDICARE PART Apr 25, PART B [id number] BRAEDENLA ND PATIENT (WNR) (M) B 2010 RENEE AVALOS Selected Encounter This section includes the information on record at MD for the Encounter. Date/Time Encounter Type Encounter Description Reason Provider Source Apr 28, 2022 03:54 Outpatient Encounter ADMIN PAT ACTIVTIES PM (MASNONCT) IHE Encounter Template Text not used by VA Plan of Treatment: Future Appointments (+ 6 months) and Future Tests (+/- 45 days) The Plan of Treatment section includes future care activities for the patient from all [facility]. This section includes future appointments and future orders which are active, pending orscheduled.Future Appointments This section includes appointments that were scheduled to occur 6 months from the date of the Encounter, up to a maximum of 20 appointments. The data comes from all MD treatment facilities. Appointment Date/Time Appointment Type Appointment Facili ty Name May 01, 2022 10:00 AM AMBULATORY - MEDICINE [place] [facility] [place] [facility] May 16, 2022 09:00 AM AMBULATORY - NONE [place] [facility] May 16, 2022 10:00 AM AMBULATORY - REHAB MEDICINE [place]L [place] [facility] Jun 18, 2022 11:30 AM AMBULATORY - REHAB MEDICINE MD CNTRL [place] [facility] Jun 25, 2022 11:30 AM AMBULATORY - REHAB MEDICINE MD [place]L [place] [facility] Jul 04, 2022 01:00 PM AMBULATORY - REHAB MEDICINE MD [place]L [place] [facility] Social History: Smoking Status (Most current) and Tobacco Use (All prior to encounter date) This section includes the most current, and the historical, smoking and tobacco-related health factors from the MD facility where the Encounter took place.Current Smoking Status This section includes the most current smoking, or tobacco-related health factor, from the MD facility where the Encounter took place. Date/Time Current Smoking Status Comment Facility May 09, 2020 01:30 PM VA-TOBACCO NEVER USED MD C NTRL [place] [facility] Tobacco Use History This section includes a history of the smoking, or tobacco- related health factors, that were collected on or before the date of the Encounter. The data comes from the MD facility where the Encounter took place. Date/Time Smoking Status/Tobacco Use Comment [facility] Feb 11, 2020 03:54 PM VA-TOBACCO NEVER USED VA C NTRL [place] [facility] Feb 05, 2019 08:10 AM VA-TOBACCO FORMER USER VA CNTRL [place] [facility] Feb 05, 2019 08:10 AM VA-TOBACCO QUIT 15 YRS OR VA [facility] [place] MORE [facility] Apr 14, 2017 02:07 PM QUIT TOBACCO USE > 7 YEARS [place] [place] [facility] Jan 05, 2016 02:32 PM LIFETIME NON-TOBACCO USER MD [place]L [place] [facility] Nov 29, 2009 09:18 AM LIFETIME NON-TOBACCO USER MD CN[place] [place] [facility] Advance Directives: All historical and current Section Date Range: From patient's date of to the date document was created. This section includes ALL of a patient's completed or amended VA Advance and Rescinded Directives. The entries below indicate that a directive exists for the patient, but an actual copy is not included with this document. The data comes from all MD facilities. Date Advance Directives Provider Source Nov 13, 2017 ADVANCE DIRECTIVE MUSA STRIGNER MD CN[facility]L [place] [facility] Nov 12, 2017 GOALS & PREFERENCES TO MUSA STRINGER MD C NTRL WSTRN INFORM LIFE-SUSTAINING MASSUSE [facility] TREATMENT PLAN [...] the Encounter. The data comes from all MD treatment facilities. Date/Time Radiology Report Provider Source May 16, 2022 08:47 KNEE 2 VIEWS (RIGHT): RADIOLOGY,OUTSIDE [facility] TRL WSTRN ISAMAR RENEE LAWLER LYNDA [id number] -[birth year], [birth year] 7 M SERVICE [facility] Exm Date: MAY 16, 2022@08:47 Req Phys: JULIANNE WILLINGHAM Pat Loc: ZZCWM/NO/ NEPHROLOGY TEL-X (Re Img Loc: [facility]/BUILDING 1 Service: Unknown (Case [id number] COMPLETE) KNEE 3 VIEWS(RIGHT) (RAD Det eder) CPT:70965 Proc Modifiers : RIGHT Reason for Study: pain (Case 250 COMPLETE) KNEES BILAT STANDING (RAD De tailed) CPT:29767 (Case 251 COMPLETE) KNEE 3 VIEWS (LEFT) (RAD Det eder) CPT:79881 Proc Modifiers : LEFT Clinical History: Report Status: Verified Date Reported: MAY 16, 2022 Date Verified: MAY 16, 2022 Contract Administration Specialist E-Sig: Report: KNEE 3 VIEWS(RIGHT) [PRINTSET], KNEES BILAT STA NDING [PRINTSET], KNEE 3 VIEWS (LEFT) [PRINTSET] INDICATION: pain COMPARISON: None TECHNIQUE: 9 views of the bilateral knees, subm itted to the [place] National Teleradiology Program (NTP) for interp retation. Impression: RIGHT: No acute fracture or traumatic malalignm ent. 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 Moderate degenerative changes of the patellofem oral knee compartment. Moderate knee joint effusion LEFT: No acute fracture or traumatic alignment. Advanced tricompartmental degenerative changes. No knee joint effusion READING PHYSICIAN: Rosales Cartagena MD -[id number] 05/16/2022 14:17 EST [facility] National Teleradiology Program [phone] (For Medical Practitioner Use Only ) Attention Patients / Veterans: If you have ques tions or concerns about these test results, please contact your [facility] provider or primary care team. Primary Diagnostic Code: NO ALERT REQUIRED Primary Interpreting Staff: RADIOLOGY,OUTSIDE SERVICE, Staff Physician / Encounter Notes: All associated encounter notes This section contains the clinical notes associated to the Encounter. Date/Time Encounter Note(s) Provider Source Apr 28, 2022 03:54 PM ADMINISTRATIVE NOTE: LAKSHMI AGUAYO [facility] NTRL WSTRN LOCAL TITLE: CCC: SCHEDULING ADMINISTRATION [facility] STANDARD TITLE: ADMINISTRATIVE NOTE DATE OF NOTE: APR 28, 2022@15:54 ENTRY DATE: APR 28, 2022@15:54:50 AUTHOR: LAKSHMI AGUAYO EXP COSIGNER: URGENCY: STATUS: COMPLETED CCC: SCHEDULING ADMINISTRATION Has ADDENDA Verify Patient Demographics Successfully verified patient demographics Other/General comments: Lanette ran called requesting return call from environmental maintenance worker Kun stating he couldn't hear what ext ension to call her back on. is interested in using the [facility] in [facility]. /pat/ LAKSHMI NOGUERA Signed: 04/28/2022 15:57 Receipt Acknowledged By: * AWAITING SIGNATURE * ASHLEY ESTRADA 04/29/2022 14:09 /pat/ CRISTINO HANKINS LICENSED INDEPENDENT CLINICAL TAB MACHINE OPERATOR 04/29/2022 ADDENDUM STATUS: COMPLETED Outpatient Facility Physical Therapist left detailed VM message with contact inf ormation for [facility]. Encouraged to co ntact VA prn. consult closed- /pat/ CRISTINO HANKINS LICENSED INDEPENDENT CLINICAL TAB MACHINE OPERATOR Signed: 04/29/2022 14:11
--- OUTSIDE RECORDS SUMMARY | 2022-06-03 16:00 | XMS_ITS ---
:1945 Author Organization Department of [facility] rs Address [address] [place] [address] Support Name Relationship Address Phone ROLANDO LAWLER Unavailable [address] [address] KELSEY HAILE Unavailable [address] [place] [address] Insurance Providers: All historical and current Section [...] MEDICARE MEDICARE PART Apr 25, PART A [id number] LANGLA ND PATIENT (WNR) (M) A 2010 RENEE AVALOS MEDICARE MEDICARE PART Apr 25, PART B [id number] [id number] LANGLA ND PATIENT (WNR) (M) B 2010 RENEE AVALOS MEDICARE MEDICARE PART Apr 25, PART A [id number] BRAEDENLA ND PATIENT (WNR) (M) A 2010 RENEE AVALOS MEDICARE MEDICARE PART Apr 25, PART B [id number] [id number] BRAEDENLA ND PATIENT (WNR) (M) B 2010 RENEE AVALOS Selected Encounter This section includes the information on record at [place] for the Encounter. Date/Time Encounter Type Encounter Description Reason Provider Source Apr 22, 2022 01:09 Outpatient Encounter ADMIN PAT ACTIVTIES AM (MASNONCT) IHE Encounter Template Text not used by VA Plan of Treatment: Future Appointments (+ 6 months) and Future Tests (+/- 45 days) The Plan of Treatment section includes future care activities for the patient from all [place] [facility]. This section includes future appointments and future orders which are active, pending orscheduled.Future Appointments This section includes appointments that were scheduled to occur 6 months from the date of the Encounter, up to a maximum of 20 appointments. The data comes from all [place] treatment facilities. Appointment Date/Time Appointment Type Appointment Facili ty Name May 01, 2022 10:00 AM AMBULATORY - MEDICINE [place] [facility] May 16, 2022 09:00 AM AMBULATORY - NONE [place] [facility] May 16, 2022 10:00 AM AMBULATORY - REHAB MEDICINE [place]L [place] [facility] Jun 18, 2022 11:30 AM AMBULATORY - REHAB MEDICINE MT CN[place] [facility] Jun 25, 2022 11:30 AM AMBULATORY - REHAB MEDICINE MT CN[facility]L [place] [facility] Jul 04, 2022 01:00 PM AMBULATORY - REHAB MEDICINE [place] [facility] Social History: Smoking Status (Most current) and Tobacco Use (All prior to encounter date) This section includes the most current, and the historical, smoking and tobacco-related health factors from the [place] facility where the Encounter took place.Current Smoking Status This section includes the most current smoking, or tobacco-related health factor, from the [place] facility where the Encounter took place. Date/Time Current Smoking Status Comment Facility May 09, 2020 01:30 PM VA-TOBACCO NEVER USED [place] C NTRL [place] [facility] Tobacco Use History This section includes a history of the smoking, or tobacco- related health factors, that were collected on or before the date of the Encounter. The data comes from the [place] facility where the Encounter took place. Date/Time Smoking Status/Tobacco Use Comment [facility] Feb 11, 2020 03:54 PM VA-TOBACCO NEVER USED VA C NTRL [place] [facility] Feb 05, 2019 08:10 AM VA-TOBACCO FORMER USER VA CNTRL [place] [facility] Feb 05, 2019 08:10 AM VA-TOBACCO QUIT 15 YRS OR VA CN[facility] [place] MORE [facility] Apr 14, 2017 02:07 PM QUIT TOBACCO USE > 7 YEARS [place] [place] A[place] [facility] Jan 05, 2016 02:32 PM LIFETIME NON-TOBACCO USER [place] [facility] Nov 29, 2009 09:18 AM LIFETIME NON-TOBACCO USER [place] CN[place]L [place] [facility] Advance Directives: All historical and current Section Date Range: From patient's date of to the date document was created. This section includes ALL of a patient's completed or amended VA Advance and Rescinded Directives. The entries below indicate that a directive exists for the patient, but an actual copy is not included with this document. The data comes from all [place] facilities. Date Advance Directives Provider Source Nov 13, 2017 ADVANCE DIRECTIVE MUSA STRINGER [place] CN[facility]L [place] [facility] Nov 12, 2017 GOALS & PREFERENCES TO MUSA STRINGER [place] C NTRL WSTRN INFORM LIFE-SUSTAINING MASSUSE [facility] TREATMENT PLAN Radiology Reports: +/- 30 [...] the Encounter. The data comes from all [place] treatment facilities. Date/Time Radiology Report Provider Source May 16, 2022 08:47 KNEE 2 VIEWS (RIGHT): RADIOLOGY,OUTSIDE [facility] TRL WSTRN ISAMAR RENEE LAWLER LYNDA [id number] -[birth year], [birth year] 7 M SERVICE [facility] Exm Date: MAY 16, 2022@08:47 Req Phys: JULIANNE WILLINGHAM Pat Loc: ZZCWM/NO/ NEPHROLOGY TEL-X (Re Img Loc: [facility]/BUILDING 1 Service: Unknown (Case 249 COMPLETE) KNEE 3 VIEWS(RIGHT) (RAD Det eder) CPT:54707 Proc Modifiers : RIGHT Reason for Study: pain (Case 250 COMPLETE) KNEES BILAT STANDING (RAD De tailed) CPT:07808 (Case 251 COMPLETE) KNEE 3 VIEWS (LEFT) (RAD Det eder) CPT:13990 Proc Modifiers : LEFT Clinical History: Report Status: Verified Date Reported: MAY 16, 2022 Date Verified: MAY 16, 2022 Supervisor [employer] Production E-Sig: Report: KNEE 3 VIEWS(RIGHT) [PRINTSET], KNEES BILAT STA NDING [PRINTSET], KNEE 3 VIEWS (LEFT) [PRINTSET] INDICATION: pain COMPARISON: None TECHNIQUE: 9 views of the bilateral knees, subm itted to the [place] National Teleradiology Program (NTP) for interp retation. Impression: RIGHT: No acute fracture or traumatic malalignm ent. 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 Moderate degenerative changes of the patellofem oral knee compartment. Moderate knee joint effusion LEFT: No acute fracture or traumatic alignment. Advanced tricompartmental degenerative changes. No knee joint effusion READING PHYSICIAN: Rosales Cartagena MD -[id number] 05/16/2022 14:17 EST [facility] National Teleradiology Program [phone] (For Medical Practitioner Use Only ) Attention [...] Encounter Note(s) Provider Source Apr 22, 2022 01:10 AM ADMINISTRATIVE NOTE: KATHLEEN MORALES CN TRL WSTRN LOCAL TITLE: [facility]: SCHEDULING ADMINISTRATION [place] [facility] STANDARD TITLE: ADMINISTRATIVE NOTE DATE OF NOTE: APR 22, 2022@01:10 ENTRY DATE: APR 22, 2022@01:10:09 AUTHOR: KATHLEEN MORALES EXP COSIGNER: URGENCY: STATUS: COMPLETED [place] called with Questions on how he would g o about getting a support person to assist him with his weekly swi mming activities that he attends.I let him know i would send a note over to his PACT team to have them reach back out to him and address his concerns. /pat/ KATHLEEN MORALES [facility] Signed: 04/22/2022 01:13 Receipt Acknowledged By: * AWAITING SIGNATURE * ASHLEY ESTRADA
--- OUTSIDE RECORDS SUMMARY | 2022-06-03 16:00 | XMS_ITS | Encounter Summary ---
:1945 Author Organization Department [facility] Address [address] [place] [address] Support Name Relationship Address Phone ROLANDO LAWLER Unavailable [address] [facility] [facility] [address] [phone] [place] [address] KELSEY HAILE Unavailable [address] [place] [address] Insurance Providers: All historical and current Section [...] MEDICARE MEDICARE PART Apr 25, PART A [id number] [id number] LANGLA ND PATIENT (WNR) (M) A 2010 RENEE AVALOS MEDICARE MEDICARE PART Apr 25, PART B [id number] [phone] LANGLA ND PATIENT (WNR) (M) B 2010 RENEE AVALOS MEDICARE MEDICARE PART Apr 25, PART A [id number] BRAEDENLA ND PATIENT (WNR) (M) A 2010 RENEE AVALOS MEDICARE MEDICARE PART Apr 25, PART B [id number] BRAEDENLA ND PATIENT (WNR) (M) B 2010 RENEE AVALOS Selected Encounter This section includes the information on record at [place] for the Encounter. Date/Time Encounter Type Encounter Description Reason Provider Source Apr 24, 2022 03:46 Outpatient Encounter TELEPHONE CASE PM MANAGEMENT IHE Encounter Template Text not used by VA Plan of Treatment: Future Appointments (+ 6 months) and Future Tests (+/- 45 days) The Plan of Treatment section includes future care activities for the patient [facility] This section includes future appointments and future orders which are active, pending orscheduled.Future Appointments This section includes appointments that were scheduled to occur 6 months from the date of the Encounter, up to a maximum of 20 appointments. The data comes from all [place] treatment facilities. Appointment Date/Time Appointment Type Appointment Facili ty Name May 01, 2022 10:00 AM AMBULATORY - [place]ICINE [place] [facility] May 16, 2022 09:00 AM AMBULATORY - NONE [place] [facility] May 16, 2022 10:00 AM AMBULATORY - REHAB MEDICINE [place] [facility] Jun 18, 2022 11:30 AM AMBULATORY - REHAB MEDICINE [place] [facility] Jun 25, 2022 11:30 AM AMBULATORY - REHAB MEDICINE [place] [facility] Jul 04, 2022 01:00 PM AMBULATORY - REHAB MEDICINE [place] [facility] Social History: Smoking Status (Most current) and Tobacco Use (All prior to encounter date) This section includes the most current, and the historical, smoking and tobacco-related health factors from the [place] facility where the Encounter took place.Current Smoking Status This section includes the most current smoking, or tobacco-related health factor, from the [place] facility where the Encounter took place. Date/Time Current Smoking Status Comment Facility May 09, 2020 01:30 PM VA-TOBACCO NEVER USED [place] [facility] Tobacco Use History This section includes a history of the smoking, or tobacco- related health factors, that were collected on or before the date of the Encounter. The data comes from the [place] facility where the Encounter took place. Date/Time Smoking Status/Tobacco Use Comment [facility] Feb 11, 2020 03:54 PM VA-TOBACCO NEVER USED VA C NTRL [place] [facility] Feb 05, 2019 08:10 AM VA-TOBACCO FORMER USER VA CNTRL [place] [facility] Feb 05, 2019 08:10 AM VA-TOBACCO QUIT 15 YRS OR VA CNTR[facility] [place] MORE [facility] Apr 14, 2017 02:07 PM QUIT TOBACCO USE > 7 YEARS [place] CNTRL [place] AGO [facility] Jan 05, 2016 02:32 PM LIFETIME NON-TOBACCO USER [place] [facility] Nov 29, 2009 09:18 AM LIFETIME NON-TOBACCO USER [place] [facility] [facility] Advance Directives: All historical and current Section Date Range: From patient's date of to the date document was created. This section includes ALL of a patient's completed or amended VA Advance and Rescinded Directives. The entries below indicate that a directive exists for the patient, but an actual copy is not included with this document. The data comes from all [place] facilities. Date Advance Directives Provider Source Nov 13, 2017 ADVANCE DIRECTIVE MUSA STRINGER [place] CNTRL [place] [facility] Nov 12, 2017 GOALS & PREFERENCES TO MUSA STRINGER [place] C NTRL WSTR[place] INFORM LIFE-SUSTAINING [facility] Radiology Reports: +/- 30 [...] the Encounter. The data comes from all [place] treatment facilities. Date/Time Radiology Report Provider Source May 16, 2022 08:47 KNEE 2 VIEWS (RIGHT): RADIOLOGY,OUTSIDE [facility] TRL WSTRN RENEE WALTER [id number] -[birth year] 7 M SERVICE [facility] [place] Exm Date: MAY 16, 2022@08:47 Req Phys: JULIANNE WILLINGHAM Pat Loc: ZZCWM/NO/ NEPHROLOGY TEL-X (Re Img Loc: [facility]/BUILDING 1 Service: Unknown (Case 249 COMPLETE) KNEE 3 VIEWS(RIGHT) (RAD Det eder) CPT:16279 Proc Modifiers : RIGHT Reason for Study: pain (Case 250 COMPLETE) KNEES BILAT STANDING (RAD De tailed) CPT:36751 (Case 251 COMPLETE) KNEE 3 VIEWS (LEFT) (RAD Det eder) CPT:20264 Proc Modifiers : LEFT Clinical History: Report Status: Verified Date Reported: MAY 16, 2022 Date Verified: MAY 16, 2022 Curing Machine Operator E-Sig: Report: KNEE 3 VIEWS(RIGHT) [PRINTSET], KNEES BILAT STA NDING [PRINTSET], KNEE 3 VIEWS (LEFT) [PRINTSET] INDICATION: pain COMPARISON: None TECHNIQUE: 9 views of the bilateral knees, subm itted to the [place] National Teleradiology Program (NTP) for interp retation. Impression: RIGHT: No acute fracture or traumatic malalignm ent. 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 Moderate degenerative changes of the patellofem oral knee compartment. Moderate knee joint effusion LEFT: No acute fracture or traumatic alignment. Advanced tricompartmental degenerative changes. No knee joint effusion READING PHYSICIAN: Rosales Cartagena MD -[id number] 05/16/2022 14:17 EST [facility] National Teleradiology Program [phone] (For Medical Practitioner Use Only ) Attention Patients / Veterans: If you have ques tions or concerns about these test results, please contact your [facility] provider or primary care team. Primary Diagnostic Code: NO ALERT REQUIRED Primary Interpreting Staff: RADIOLOGY,OUTSIDE SERVICE, Staff Physician / Encounter Notes: All associated encounter notes This section contains the clinical notes associated to the Encounter. Date/Time Encounter Note(s) Provider Source Apr 24, 2022 03:46 PM SOCIAL WORK NOTE: SANGEETHA ZULUAGA [place] CNTR L WSTR[place] LOCAL TITLE: SOCIAL WORK NOTE [facility] [facility] STANDARD TITLE: SOCIAL WORK NOTE DATE OF NOTE: APR 24, 2022@15:46 ENTRY DATE: APR 24, 2022@15:48:25 AUTHOR: SANGEETHA ZULUAGA EXP COSIGNER: URGENCY: STATUS: COMPLETED Machine Lead Burner left detailed VM message after x2 attempts with [facility]. Encouraged to contact pattern chart writer and VA prn. consult closed- /pat/ CRISTINO HANKINS LICENSED INDEPENDENT CLINICAL LABOR ARBITRATOR HEARING OFFICE Signed: 04/24/2022 15:56 Receipt Acknowledged By: * AWAITING SIGNATURE * JULIANNE WILLINGHAM
--- OUTSIDE RECORDS SUMMARY | 2022-06-03 16:00 | XMS_ITS | Encounter Summary ---
:1945 Author Organization Department of [facility] rs Address [address] [place] [address] Support Name Relationship Address Phone ROLANDO LAWLER Unavailable [address] [address] KELSEY HAILE Unavailable [address] [place] [address] Insurance Providers: All historical and current Section [...] MEDICARE MEDICARE PART Apr 25, PART A [id number] [id number] LANGLA ND PATIENT (WNR) (M) A 2010 RENEE AVALOS MEDICARE MEDICARE PART Apr 25, PART B [id number] [phone] LANGLA ND PATIENT (WNR) (M) B 2010 RENEE AVALOS MEDICARE MEDICARE PART Apr 25, PART A [id number] BRAEDENLA ND PATIENT (WNR) (M) A 2010 RENEE AVALOS MEDICARE MEDICARE PART Apr 25, PART B [id number] BRAEDENLA ND PATIENT (WNR) (M) B 2010 RENEE AVALOS Selected Encounter This section includes the information on record at CT for the Encounter. Date/Time Encounter Type Encounter Description Reason Provider Source Apr 22, 2022 08:49 Outpatient Encounter ADMIN PAT ACTIVTIES AM (MASNONCT) IHE Encounter Template Text not used by VA Plan of Treatment: Future Appointments (+ 6 months) and Future Tests (+/- 45 days) The Plan of Treatment section includes future care activities for the patient [facility] This section includes future appointments and future orders which are active, pending orscheduled.Future Appointments This section includes appointments that were scheduled to occur 6 months from the date of the Encounter, up to a maximum of 20 appointments. The data comes from all CT treatment facilities. Appointment Date/Time Appointment Type Appointment Facili ty Name May 01, 2022 10:00 AM AMBULATORY - MEDICINE [place] [facility] [place] [facility] May 16, 2022 09:00 AM AMBULATORY - NONE [place] [facility] [place] [facility] May 16, 2022 10:00 AM AMBULATORY - REHAB MEDICINE [place] [facility] [place] [facility] Jun 18, 2022 11:30 AM AMBULATORY - REHAB MEDICINE [place] [facility]L [place] [facility] Jun 25, 2022 11:30 AM AMBULATORY - REHAB MEDICINE [place] [facility] [place] [facility] Jul 04, 2022 01:00 PM AMBULATORY - REHAB MEDICINE [place] [facility] [place] [facility] Social History: Smoking Status (Most current) and Tobacco Use (All prior to encounter date) This section includes the most current, and the historical, smoking and tobacco-related health factors from the CT facility where the Encounter took place.Current Smoking Status This section includes the most current smoking, or tobacco-related health factor, from the CT facility where the Encounter took place. Date/Time Current Smoking Status Comment Facility May 09, 2020 01:30 PM VA-TOBACCO NEVER USED CT C NTRL [place] [facility] Tobacco Use History This section includes a history of the smoking, or tobacco- related health factors, that were collected on or before the date of the Encounter. The data comes from the CT facility where the Encounter took place. Date/Time Smoking Status/Tobacco Use Comment [facility] Feb 11, 2020 03:54 PM VA-TOBACCO NEVER USED [place] [facility] [place] [facility] Feb 05, 2019 08:10 AM VA-TOBACCO FORMER USER [facility] [place] [facility] Feb 05, 2019 08:10 AM VA-TOBACCO QUIT 15 YRS OR [facility] [place] [facility] Apr 14, 2017 02:07 PM QUIT TOBACCO USE > 7 YEARS [facility] [place] [facility] Jan 05, 2016 02:32 PM LIFETIME NON-TOBACCO USER CT [facility] [place] [facility] Nov 29, 2009 09:18 AM LIFETIME NON-TOBACCO USER CT [place]L [place] [facility] Advance Directives: All historical and current Section Date Range: From patient's date of to the date document was created. This section includes ALL of a patient's completed or amended VA Advance and Rescinded Directives. The entries below indicate that a directive exists for the patient, but an actual copy is not included with this document. The data comes from all CT facilities. Date Advance Directives Provider Source Nov 13, 2017 ADVANCE DIRECTIVE MUSA STRINGER CT CNTRL [place] [facility] Nov 12, 2017 GOALS & PREFERENCES TO MUSA STRINGER CT C NTRL WSTRN INFORM LIFE-SUSTAINING MASSUSE [facility] TREATMENT PLAN Radiology Reports: +/- 30 [...] the Encounter. The data comes from all CT treatment facilities. Date/Time Radiology Report Provider Source May 16, 2022 08:47 KNEE 2 VIEWS (RIGHT): RADIOLOGY,OUTSIDE [facility] TRL WSTRN ISAMAR RENEE LAWLER LYNDA [id number] -[birth year], [birth year] 6 M SERVICE [facility] Exm Date: MAY 16, 2022@08:47 Req Phys: JULIANNE WILLINGHAM Pat Loc: ZZCWM/NO/ NEPHROLOGY TEL-X (Re Img Loc: [facility] 1 Service: Unknown (Case [id number] COMPLETE) KNEE 3 VIEWS(RIGHT) (RAD Det eder) CPT:18176 Proc Modifiers : RIGHT Reason for Study: pain (Case 250 COMPLETE) KNEES BILAT STANDING (RAD De tailed) CPT:58889 (Case 251 COMPLETE) KNEE 3 VIEWS (LEFT) (RAD Det eder) CPT:99166 Proc Modifiers : LEFT Clinical History: Report Status: Verified Date Reported: MAY 16, 2022 Date Verified: MAY 16, 2022 Contract Consultant E-Sig: Report: KNEE 3 VIEWS(RIGHT) [PRINTSET], KNEES BILAT STA NDING [PRINTSET], KNEE 3 VIEWS (LEFT) [PRINTSET] INDICATION: pain COMPARISON: None TECHNIQUE: 9 views of the bilateral knees, subm itted to the CT National Teleradiology Program (NTP) for interp retation. Impression: RIGHT: No acute fracture or traumatic malalignm ent. 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 Moderate degenerative changes of the patellofem oral knee compartment. Moderate knee joint effusion LEFT: No acute fracture or traumatic alignment. Advanced tricompartmental degenerative changes. No knee joint effusion READING PHYSICIAN: Rosales Cartagena MD -[id number] 05/16/2022 14:17 EST [facility] National Teleradiology Program [phone] (For Medical Practitioner Use Only ) Attention Patients / Veterans: If you have ques tions or concerns about these test results, please contact your [facility] provider or primary care team. Primary Diagnostic Code: NO ALERT REQUIRED Primary Interpreting Staff: RADIOLOGY,OUTSIDE SERVICE, Staff Physician / Encounter Notes: All associated encounter notes This section contains the clinical notes associated to the Encounter. Date/Time Encounter Note(s) Provider Source Apr 22, 2022 08:49 AM ADMINISTRATIVE NOTE: ЮЛИЯ CHIU CT CN TRL WSTRN LOCAL TITLE: [facility]: SCHEDULING ADMINISTRATION [facility] STANDARD TITLE: ADMINISTRATIVE NOTE DATE OF NOTE: APR 22, 2022@08:49:55 ENTRY DATE: APR 22, 2022@08:49:55 AUTHOR: ЮЛИЯ CHIU EXP COSIGNER: URGENCY: STATUS: COMPLETED Patient Demographics Patient Name: RENEE LAWLER Patient Primary Address: [facility] [address]
[place] [address] SSN: [id number] Patient : 1945 Patient Age: 76 Caller/Recipient Relation to Patient: Self Patient Requesting Follow-Up RTC Patient Call Date/Time: 2022-04-22 13:40:43 Actions Completed Other Comments: [place] is requesting a call julia fernandez See Scheduling Administration notes dated 04/22/2022 Clinical Contact Center Codes Clinic/Location: V1 CWM PHONE [facility] ADMIN /es/ ЮЛИЯLUZ LICONA 1 [facility] Signed: 04/22/2022 08:50 Receipt Acknowledged By: * AWAITING SIGNATURE * ASHLEY ESTRADA * AWAITING SIGNATURE * GEMMA CHERRY
--- OUTSIDE RECORDS SUMMARY | 2022-06-03 16:00 | XMS_ITS ---
:1945 Author Organization [facility] rs Address [address] [place] [address] Support Name Relationship Address Phone ROLANDO LAWLER Unavailable [address] [phone] [place] [address] KELSEY HAILE Unavailable [address] [place] [address] Insurance Providers: All historical and current Section [...] MEDICARE MEDICARE PART Apr 25, PART A [id number] [id number] LANGLA ND PATIENT (WNR) (M) A 2010 RENEE AVALOS MEDICARE MEDICARE PART Apr 25, PART B [id number] [phone] LANGLA ND PATIENT (WNR) (M) B 2010 RENEE AVALOS MEDICARE MEDICARE PART Apr 25, PART A [id number] BRAEDENLA ND PATIENT (WNR) (M) A 2010 RENEE AVALOS MEDICARE MEDICARE PART Apr 25, PART B [id number] BRAEDENLA ND PATIENT (WNR) (M) B 2010 RENEE AVALOS Selected Encounter This section includes the information on record at [place] for the Encounter. Date/Time Encounter Type Encounter Description Reason Provider Source Apr 22, 2022 08:27 Outpatient Encounter ADMIN PAT ACTIVTIES AM (MASNONCT) IHE Encounter Template Text not used by VA Plan of Treatment: Future Appointments (+ 6 months) and Future Tests (+/- 45 days) The Plan of Treatment section includes future care activities for the patient from all [place] [facility]. This section includes future appointments and future orders which are active, pending orscheduled.Future Appointments This section includes appointments that were scheduled to occur 6 months from the date of the Encounter, up to a maximum of 20 appointments. The data comes from all [place] treatment facilities. Appointment Date/Time Appointment Type Appointment Facili ty Name May 01, 2022 10:00 AM AMBULATORY - [place]ICINE [place] [facility] May 16, 2022 09:00 AM AMBULATORY - NONE [place] [facility] May 16, 2022 10:00 AM AMBULATORY - REHAB MEDICINE [place] [facility] Jun 18, 2022 11:30 AM AMBULATORY - REHAB MEDICINE [place] [facility] Jun 25, 2022 11:30 AM AMBULATORY - REHAB MEDICINE [place] [facility] Jul 04, 2022 01:00 PM AMBULATORY - REHAB MEDICINE [place] [facility] Social History: Smoking Status (Most current) and [...] 09, 2020 01:30 PM VA-TOBACCO NEVER USED [place] C NTRL [place] [facility] Tobacco Use History This section includes a history of the smoking, or tobacco- related health factors, that were collected on or before the date of the Encounter. The data comes from the [place] facility where the Encounter took place. Date/Time Smoking Status/Tobacco Use Comment [facility] Feb 11, 2020 03:54 PM VA-TOBACCO NEVER USED VA C [place]TRL [place] [facility] Feb 05, 2019 08:10 AM VA-TOBACCO FORMER USER [place] CN[facility]L [place] [facility] Feb 05, 2019 08:10 AM VA-TOBACCO QUIT 15 YRS OR [facility] [place] [facility] Apr 14, 2017 02:07 PM QUIT TOBACCO USE > 7 YEARS [place] [facility] [place] [facility] Jan 05, 2016 02:32 PM LIFETIME NON-TOBACCO USER [place] [facility] Nov 29, 2009 09:18 AM LIFETIME NON-TOBACCO USER [place] [facility] Advance Directives: All historical and current Section [...] DIRECTIVE MUSA STRINGER [place] CN[place] [facility] Nov 12, 2017 GOALS & PREFERENCES TO MUSA STRINGER [place] C NTRL WSTRN INFORM LIFE-SUSTAINING [facility] T[facility]MENT PLAN Radiology Reports: +/- 30 days [...] [facility] ISAMAR RENEE LAWLER LYNDA [id number] -[birth year], [birth year] 6 M SERVICE [facility] Exm Date: MAY 16, 2022@08:47 Req Phys: JULIANNE WILLINGHAM Pat Loc: ZZCWM/NO/ NEPHROLOGY TEL-X (Re Img Loc: [facility]/BUILDING 1 Service: Unknown (Case 249 COMPLETE) KNEE 3 VIEWS(RIGHT) (RAD Det eder) CPT:76327 Proc Modifiers : RIGHT Reason for Study: pain (Case 250 COMPLETE) KNEES BILAT STANDING (RAD De tailed) CPT:35960 (Case 251 COMPLETE) KNEE 3 VIEWS (LEFT) (RAD Det eder) CPT:21486 Proc Modifiers : LEFT Clinical History: Report Status: Verified Date Reported: MAY 16, 2022 Date Verified: MAY 16, 2022 Director Validation E-Sig: Report: KNEE 3 VIEWS(RIGHT) [PRINTSET], KNEES [...] No knee joint effusion READING PHYSICIAN: Rosales Cratagena MD -[id number] 05/16/2022 14:17 EST [facility] National Teleradiology Program [phone] (For Medical Practitioner Use Only ) Attention Patients / Veterans: If you have ques tions or concerns about these test results, please contact your [facility] provider or primary care team. Primary Diagnostic Code: NO ALERT REQUIRED Primary Interpreting Staff: RADIOLOGY,OUTSIDE SERVICE, Staff Physician / Encounter Notes: All associated encounter notes This section contains the clinical notes associated to the Encounter. Date/Time Encounter Note(s) Provider Source Apr 22, 2022 08:27 AM ADMINISTRATIVE NOTE: JUANA CHACKO [place] CN TRL WSTRN LOCAL TITLE: [facility]: SCHEDULING ADMINISTRATION [facility] STANDARD TITLE: ADMINISTRATIVE NOTE DATE OF NOTE: APR 22, 2022@08:27:58 ENTRY DATE: APR 22, 2022@08:27:58 AUTHOR: JUANA CHACKO EXP COSIGNER: URGENCY: STATUS: COMPLETED CCC: SCHEDULING ADMINISTRATION Has ADDENDA Patient Demographics Patient Name: RENEE LAWLER Patient Primary Address: [address] [address]
[place] [address] SSN: [id number] Patient : 1945 Patient Age: 76 Caller/Recipient Relation to Patient: Neighbor Caller Name: Jairo Progress Note Note Comments: Vets friend Jairo [phone] ca lling for the vet. Friend states that the [facility] in [facility] is requiring that when the vet to come to swim, he come with a bonbon cream warmer. Vet is very heav y, but he can walk, and he needs no physical assistance. Suzan hired a RN [facility] and suzan really doesn't need a RN but just someone to be responsible adult incase suzan falls at the Y. Suzan is asking for the [facility] to pay for a person to watch him [facility]. The [facility] will not let the suzan swim wit hout a person to watch him. Patient Requesting Follow-Up RTC Patient Expects Callback: No Patient Call Date/Time: 2022-04-22 13:16:08 Clinical Contact Center Codes Clinic/Location: V1 CWM PHONE [facility] ADMIN /es/ JUANA LICONA 1 [facility] AMSA Signed: 04/22/2022 08:28 Receipt Acknowledged By: * AWAITING SIGNATURE * ASHLEY ESTRADA * AWAITING SIGNATURE * JULIANNE WILLINGHAM 04/22/2022 ADDENDUM STATUS: COMPLETED called the Physical Therapy Department this morning requesting a new PT consuly. Please contact [place] for his specific needs. /es/ CAMERON NORMAN [facility] Signed: 04/22/2022 08:54 Receipt Acknowledged By: * AWAITING SIGNATURE * JULIANNE WILLINGHAM
[2022-06-03 16:01] LABS: Troponin-I High Sensitivity 39.9 ng/L (<3.5-35.0)
--- OUTSIDE RECORDS SUMMARY | 2022-06-03 16:01 | XMS_ITS | Encounter Summary ---
:1945 Author Organization Department of [facility] Address [address] [place] [address] Support Name Relationship Address Phone ROLANDO LAWLER Unavailable [address] [place] [address] KELSEY HAILE Unavailable [address] [facility] [place] [address] Insurance Providers: All historical and current Section [...] MEDICARE MEDICARE PART Apr 25, PART A [id number] LANGLA ND PATIENT (WNR) (M) A 2010 RENEE AVALOS MEDICARE MEDICARE PART Apr 25, PART B [id number] LANGLA ND PATIENT (WNR) (M) B 2010 RENEE AVALOS MEDICARE MEDICARE PART Apr 25, PART A [id number] BRAEDENLA ND PATIENT (WNR) (M) A 2010 RENEE AVALOS MEDICARE MEDICARE PART Apr 25, PART B [id number] BRAEDENLA ND PATIENT (WNR) (M) B 2010 RENEE AVALOS Selected Encounter This section includes the information on record at OR for the Encounter. Date/Time Encounter Type Encounter Description Reason Provider Source Jan 30, 2022 02:07 Outpatient Encounter PRIMARY CARE/MEDICINE PM IHE Encounter Template Text not used by VA Plan of Treatment: Future Appointments (+ 6 months) and Future Tests (+/- 45 days) The Plan of Treatment section includes future care activities for the patient from [facility] [place] [facility]. This section includes future appointments and future orders which are active, pending orscheduled.Future Appointments This section includes appointments that were scheduled to occur 6 months from the date of the Encounter, up to a maximum of 20 appointments. The data comes from all [facility]. Appointment Date/Time Appointment Type Appointment Facili ty Name May 01, 2022 10:00 AM [facility] May 16, 2022 09:00 AM [facility] [facility] May 16, 2022 10:00 AM AM[facility]UL[facility] [place] [facility] Jun 18, 2022 11:30 AM AM[facility]UL[facility] [place] [facility] Jun 25, 2022 11:30 AM AMBULAT[facility] [place] [facility] Jul 04, 2022 01:00 PM AMBULATORY - REHAB MEDICINE [facility] W STRN [place] [facility] Active, Pending, and Scheduled Orders This section includes a listing of several types of active, pending, and scheduled orders, including clinic medications orders, diagnostic test orders, procedure orders and consult orders; where the start date of the order is 45 days before the date of the Encounter or 45 days after the date of the Encounter. The data comes from all [facility]. Test Date/Time Test Type Test Details Facility Name Jan 30, 2022 12:00 Laboratory - LIPID PANEL FASTING [facility] AM Chemistry [facility] B[facility] Jan 30, 2022 12:00 Laboratory - MAGNESIUM BLOOD [facility] WSTR N AM Chemistry Order (SST-SERUM) [place] [facility] Jan 30, 2022 12:00 Laboratory - CALCIUM BLOOD [facility] WSTR N AM Chemistry Order (SST-SERUM) [facility] Jan 30, 2022 12:00 Laboratory - MICROALBUMIN CREATININE [facility] TR WSTRN AM Chemistry Order RATIO PANEL URINE [facility] S (RANDOM) Jan 30, 2022 12:00 Laboratory - BASIC METABOLIC PANEL [facility] AM Chemistry Order (non-fasting) [facility] (SST-SERUM) Jan 30, 2022 12:00 Laboratory - CBC BLOOD (LAV-BLOOD) [facility] AM Chemistry Order [facility] [place] [facility] Jan 30, 2022 12:00 Laboratory - IRON & TIBC PANEL BLOOD [facility] AM Chemistry Order (SST-SERUM) [facility] [place] [facility] Jan 30, 2022 12:00 Laboratory - FERRITIN BLOOD [facility] N AM Chemistry Order (SST-SERUM) [place] [facility] Mar 02, 2022 12:00 Laboratory - BASIC METABOLIC PANEL [facility] AM Chemistry Order (non-fasting) BLOOD [place] [facility] (SST-SERUM) SP Mar 02, 2022 12:00 Laboratory - CBC BLOOD (LAV-BLOOD) [facility] AM Chemistry Order [place] [facility] Mar 02, 2022 12:00 Laboratory - IRON & TIBC PANEL BLOOD [facility] AM Chemistry Order (SST-SERUM) [place] [facility] Mar 02, 2022 12:00 Laboratory - FERRITIN BLOOD [facility] N AM Chemistry Order (SST-SERUM) [place] [facility] Mar 02, 2022 12:00 Laboratory - RETICULOCYTES BLOOD [facility] AM Chemistry Order (LAV-BLOOD) [place] [facility] Mar 02, 2022 12:00 Laboratory - MICROALBUMIN CREATININE [facility] AM Chemistry Order RATIO PANEL URINE [place] [facility] (RANDOM) SP Social History: Smoking Status (Most current) and Tobacco Use (All prior to encounter date) This section includes the most current, and the historical, smoking and tobacco-related health factors from the [place] facility where the Encounter took place.Current Smoking Status This section includes the most current smoking, or tobacco-related health factor, from the [place] facility where the Encounter took place. Date/Time Current Smoking Status Comment Facility May 09, 2020 01:30 PM VA-TOBACCO NEVER USED [place] C NTRL [place] [facility] Tobacco Use History This section includes a history of the smoking, or tobacco- related health factors, that were collected on or before the date of the Encounter. The data comes from the [place] facility where the Encounter took place. Date/Time Smoking Status/Tobacco Use Comment [facility] Feb 11, 2020 03:54 PM VA-TOBACCO NEVER USED [facility] C [place]L [place] [facility] Feb 05, 2019 08:10 AM VA-TOBACCO FORMER USER [facility] [place] [facility] Feb 05, 2019 08:10 AM VA-TOBACCO QUIT 15 YRS OR [facility] [place] [facility] Apr 14, 2017 02:07 PM QUIT TOBACCO USE > 7 YEARS [facility] [place] [place] [facility] Jan 05, 2016 02:32 PM LIFETIME NON-TOBACCO USER [facility] [place] [facility] Nov 29, 2009 09:18 AM LIFETIME NON-TOBACCO USER [facility] [place] [facility] Advance Directives: All historical and current Section Date Range: From patient's date of to the date document was created. This section includes ALL of a patient's completed or amended VA Advance and Rescinded Directives. The entries below indicate that a directive exists for the patient, but an actual copy is not included with this document. The data comes from all [place] facilities. Date Advance Directives Provider Source Nov 13, 2017 ADVANCE DIRECTIVE MUSA STRINGER [facility] [facility] Nov 12, 2017 GOALS & PREFERENCES TO MUSA STRINGER [facility] C NTRL WSTR[place] INFORM LIFE-SUSTAINING [place] [facility] TREATMENT PLAN Encounter Notes: All associated encounter notes This section contains the clinical notes associated to the Encounter. Date/Time Encounter Note(s) Provider Source Jan 30, 2022 02:07 ADMINISTRATIVE NOTE: PAULA BLACK OR CNTRL WSTRN PM LOCAL TITLE: ADMINISTRATIVE NOTE QUIRINO SAM[facility]ADARREN [facility] STANDARD TITLE: ADMINISTRATIVE NOTE DATE OF NOTE: JAN 30, 2022@14:07 ENTRY DATE: JAN 30, 2022@14:07:08 AUTHOR: PAULA BLACK EXP COSIGNER: URGENCY: STATUS: COMPLETED called into Primary Care requesting a new consult/referral for Dr. Kellogg for his knees. Please review. [place] cell phone number is conf irmed in system. /pat/ PAULA NOGUERA Signed: 01/30/2022 14:13 Receipt Acknowledged By: * AWAITING SIGNATURE * ASHLEY ESTRADA * AWAITING SIGNATURE * GEMMA CHERRY
--- OUTSIDE RECORDS SUMMARY | 2022-06-03 16:01 | XMS_ITS | Encounter Summary ---
:1945 Author Organization Department of [facility] rs Address [address] [place] [address] Support Name Relationship Address Phone ROLANDO LAWLER Unavailable [address] [place] [address] KELSEY HAILE Unavailable [address] [place] [address] Insurance Providers: All historical and current Section [...] MEDICARE MEDICARE PART Apr 25, PART A [id number] BRAEDENLA ND PATIENT (WNR) (M) A 2010 RENEE AVALOS MEDICARE MEDICARE PART Apr 25, PART B [id number] BRAEDENLA ND PATIENT (WNR) (M) B 2010 RENEE AVALOS MEDICARE MEDICARE PART Apr 25, PART B [id number] BRAEDENLA ND PATIENT (WNR) (M) B 2010 RENEE AVALOS MEDICARE MEDICARE PART Apr 25, PART A [id number] BRAEDENLA ND PATIENT (WNR) (M) A 2010 RENEE AVALOS Selected Encounter This section includes the information on record at [place] for the Encounter. Date/Time Encounter Type Encounter Description Reason Provider Source Feb 15, 2022 03:52 Outpatient Encounter RENAL/NEPHROL(EXCEPT PM DIALYSIS) IHE Encounter Template Text not used by VA Plan of Treatment: Future Appointments (+ 6 months) and Future Tests (+/- 45 days) The Plan of Treatment section includes future care activities for the patient from all [place] [facility]. This section includes future appointments and future orders which are active, pending orscheduled.Future Appointments This section includes appointments that were scheduled to occur 6 months from the date of the Encounter, up to a maximum of 20 appointments. The data comes from all [facility]. Appointment Date/Time Appointment Type Appointment Facili ty Name May 01, 2022 10:00 AM [facility] [place] [facility] May 16, 2022 09:00 AM AMBULATORY - NONE [facility] WSN [place] [facility] May 16, 2022 10:00 AM AMBULATORY [facility] [place] [facility] Jun 18, 2022 11:30 AM [facility] [place] [facility] Jun 25, 2022 11:30 AM [facility] [place] [facility] Jul 04, 2022 01:00 PM AMBULATORY - REHAB MEDICINE [facility] W STRN [place] [facility] Active, Pending, and Scheduled Orders This section includes a listing of several types of active, pending, and scheduled orders, including clinic medications orders, diagnostic test orders, procedure orders and consult orders; where the start date of the order is 45 days before the date of the Encounter or 45 days after the date of the Encounter. The data comes from all [facility]. Test Date/Time Test Type Test Details Facility Name Jan 30, 2022 12:00 Laboratory - LIPID PANEL [facility] Chemistry Order BLOOD (SST-SERUM) [place] [facility] Jan 30, 2022 12:00 Laboratory - MAGNESIUM BLOOD [facility] WSTR N AM Chemistry Order (SST-SERUM) SP [place] [facility] Jan 30, 2022 12:00 Laboratory - CALCIUM [facility]LOOD [facility] AM Chemistry Order (SST-SERUM) [place] [facility] Jan 30, 2022 12:00 Laboratory - MICROALBUMIN CREATININE [facility] WSTRN AM Chemistry Order RATIO PANEL [facility] ([facility] Jan 30, 2022 12:00 Laboratory - BASIC METABOLIC PANEL [facility] Chemistry Order (non-fasting) [facility]LOOD [place] [facility] (SST-SERUM) Jan 30, 2022 12:00 Laboratory - IRON & TIBC PANEL BLOOD [facility] AM Chemistry Order (SST-SERUM) [facility] [place] [facility] Jan 30, 2022 12:00 Laboratory - CBC BLOOD (LAV-BLOOD) [facility] AM Chemistry Order SP [place] [facility] Jan 30, 2022 12:00 Laboratory - FERRITIN BLOOD [facility] N AM Chemistry Order (SST-SERUM) SP [place] [facility] Mar 02, 2022 12:00 Laboratory - BASIC METABOLIC PANEL [facility] AM Chemistry Order (non-fasting) BLOOD [place] [facility] (SST-SERUM) SP Mar 02, 2022 12:00 Laboratory - CBC BLOOD (LAV-BLOOD) [facility] AM Chemistry Order SP [place] [facility] Mar 02, 2022 12:00 Laboratory - IRON & TIBC PANEL BLOOD [facility] AM Chemistry Order (SST-SERUM) [facility] [place] [facility] Mar 02, 2022 12:00 Laboratory - MICROALBUMIN CREATININE [facility] AM Chemistry Order RATIO PANEL URINE [place] [facility] S (RANDOM) Mar 02, 2022 12:00 Laboratory - RETICULOCYTES BLOOD [facility] AM Chemistry Order (LAV-BLOOD) [facility] [place] [facility] Mar 02, 2022 12:00 Laboratory - FERRITIN BLOOD [facility] N AM Chemistry Order (SST-SERUM) SP [place] [facility] Social History: Smoking Status (Most current) and Tobacco Use (All prior to encounter date) This section includes the most current, and the historical, smoking and tobacco-related health factors from the [place] facility where the Encounter took place.Current Smoking Status This section includes the most current smoking, or tobacco-related health factor, from the [place] facility where the Encounter took place. Date/Time Current Smoking Status Comment Facility May 09, 2020 01:30 PM VA-TOBACCO NEVER USED [place] C NTRL [place] [facility] Tobacco Use History This section includes a history of the smoking, or tobacco- related health factors, that were collected on or before the date of the Encounter. The data comes from the [place] facility where the Encounter took place. Date/Time Smoking Status/Tobacco Use Comment [facility] Feb 11, 2020 03:54 PM VA-TOBACCO NEVER USED [facility] [place] [facility] Feb 05, 2019 08:10 AM VA-TOBACCO FORMER USER [facility] [place] [facility] Feb 05, 2019 08:10 AM VA-TOBACCO QUIT 15 YRS OR [facility] [place] MORE [facility] Apr 14, 2017 02:07 PM QUIT TOBACCO USE > 7 YEARS [facility] [place] [facility] Jan 05, 2016 02:32 PM LIFETIME NON-TOBACCO USER [facility] [place] [facility] Nov 29, 2009 09:18 AM LIFETIME NON-TOBACCO USER [facility] [place] [facility] Advance Directives: All historical and current Section Date Range: From patient's date of to the date document was created. This section includes ALL of a patient's completed or amended [place] Advance and Rescinded Directives. The entries below indicate that a directive exists for the patient, but an actual copy is not included with this document. The data comes from all [place] facilities. Date Advance Directives Provider Source Nov 13, 2017 ADVANCE DIRECTIVE MUSA STRINGER [facility] [place] [facility] Nov 12, 2017 GOALS & PREFERENCES TO MUSA STRINGER [facility] C NTRL WSTRN INFORM LIFE-SUSTAINING [place] [facility] TREATMENT PLAN Encounter Notes: All associated encounter notes This section contains the clinical notes associated to the Encounter. Date/Time Encounter Note(s) Provider Source Feb 15, 2022 03:52 PM TELEPHONE ENCOUNTER NOTE: EVA ESPINO [place] CN[facility]L WSTRN LOCAL TITLE: TELEPHONE NOTE/SPECIALTY CLINIC [facility] STANDARD TITLE: TELEPHONE ENCOUNTER NOTE DATE OF NOTE: FEB 15, 2022@15:52 ENTRY DATE: FEB 15, 2022@15:52:21 AUTHOR: EVA ESPINO EXP COSIGNER: URGENCY: STATUS: COMPLETED Called and left message on voicemail. Patients a ppointment with CWM/NO/NEPHROLOGY PROV on03/06/@11:30A needs to be rescheduled with a PID of . Letter mailed. , ext. [phone]. /pat/ EVA ESPINO ADVANCED SPECIAL EDUCATION AIDE Signed: 02/15/2022 15:53
--- OUTSIDE RECORDS SUMMARY | 2022-06-03 16:01 | XMS_ITS | Encounter Summary ---
:1945 [address] Department [facility] Address [address] [place] [id number] Support Name Relationship Address Phone ROLANDO LAWLER Unavailable [address] [facility] [place] [address] KELSEY HAILE Unavailable [address] [facility] [place] [address] Insurance Providers: All historical and current Section [...] MEDICARE MEDICARE PART Apr 25, PART A [id number] [id number] LANGLA ND PATIENT (WNR) (M) A 2010 RENEE AVALOS MEDICARE MEDICARE PART Apr 25, PART B [id number] [id number] LANGLA ND PATIENT (WNR) (M) B 2010 RENEE AVALOS MEDICARE MEDICARE PART Apr 25, PART A [id number] BRAEDENLA ND PATIENT (WNR) (M) A 2010 RENEE AVALOS MEDICARE MEDICARE PART Apr 25, PART B [id number] BRAEDENLA ND PATIENT (WNR) (M) B 2010 RENEE AVALOS Selected Encounter This section includes the information on record at [place] for the Encounter. Date/Time Encounter Type Encounter Reason Provider Source Description Apr 22, 2022 HC PRO PHONE TELEPHONE PRIMARY ICD-10-CM Z76.89 NINI ESTRADA 09:15 AM CALL 11-20 MIN CARE Persons EN M encountering health services in oth circumstances with Provider Comments: Health Services in Other Specified Circumstances IHE Encounter Template Text not used by [place] Assessments - Encounter Diagnoses This section includes the primary and secondary diagnoses documented for the Encounter. Date/Time Primary/Secondary Diagnosis Name Provider Source Diagnosis Apr 22, 2022 PRIMARY Persons [facility]I [facility]STRADA [facility] AM encountering [facility] health services in oth circumstances Plan of Treatment: Future Appointments (+ 6 months) and Future Tests (+/- 45 days) The Plan of Treatment section includes future care activities for the patient from all [place] treatmentfacilities. This section includes future appointments and future orders which are active, pending orscheduled.Future Appointments This section includes appointments that were scheduled to occur 6 months from the date of the Encounter, up to a maximum of 20 appointments. The data comes from all [place] treatment facilities. Appointment Date/Time Appointment Type Appointment Facili ty Name May 01, 2022 10:00 AM [facility] May 16, 2022 09:00 AM [facility] [place] [facility] May 16, 2022 10:00 AM [facility] [place] [facility] Jun 18, 2022 11:30 AM AMBULATORY - REHAB MEDICINE [facility] W STRN [place] [facility] Jun 25, 2022 11:30 AM AMBULATORY - REHAB [facility] Jul 04, 2022 01:00 PM AMBULATORY - [facility] Social History: Smoking Status (Most current) and Tobacco Use (All prior to encounter date) This section includes the most current, and the historical, smoking and tobacco-related health factors from the [place] facility where the Encounter took place.Current Smoking Status This section includes the most current smoking, or tobacco-related health factor, from the [place] facility where the Encounter took place. Date/Time Current Smoking Status Comment Facility May 09, 2020 01:30 PM VA-TOBACCO NEVER USED [facility] Tobacco Use History This section includes a history of the smoking, or tobacco- related health factors, that were collected on or before the date of the Encounter. The data comes from the [place] facility where the Encounter took place. Date/Time Smoking Status/Tobacco Use Comment Facil ity Feb 11, 2020 03:54 PM VA-TOBACCO NEVER USED [facility] C NTRL [place]N [place] [facility] Feb 05, 2019 08:10 AM VA-TOBACCO FORMER USER [facility] CN[facility]L [facility] [place] [facility] Feb 05, 2019 08:10 AM VA-TOBACCO QUIT 15 YRS OR VA [facility] [place] [facility] Apr 14, 2017 02:07 PM QUIT TOBACCO USE > 7 YEARS [facility] [place]N [place] [facility] Jan 05, 2016 02:32 PM LIFETIME NON-TOBACCO USER [facility] [place] [facility] Nov 29, 2009 09:18 AM LIFETIME NON-TOBACCO USER [facility] [place] [facility] Advance Directives: All historical and current Section Date Range: From patient's date of to the date document was created. This section includes ALL of a patient's completed or amended VA Advance and Rescinded Directives. The entries below indicate that a directive exists for the patient, but an actual copy is not included with this document. The data comes from all [place] facilities. Date Advance Directives Provider Source Nov 13, 2017 ADVANCE DIRECTIVE MUSA STRINGER [facility] [place] [facility] Nov 12, 2017 GOALS & PREFERENCES TO MUSA STRINGER VA C NTRL WSTRN INFORM LIFE-SUSTAINING [place] [facility] TREATMENT PLAN Radiology Reports: +/- 30 [...] the Encounter. The data comes from all [place] treatment facilities. Date/Time Radiology Report Provider Source May 16, 2022 08:47 KNEE 2 VIEWS (RIGHT): RADIOLOGY,OUTSIDE [facility] T[facility] WSTRN ISAMAR RENEE LAWLER LYNDA [id number] -[birth year], [birth year] 7 M SERVICE [facility] Exm Date: MAY 16, 2022@08:47 Req Phys: JULIANNE WILLINGHAM Pat Loc: ZZCWM/NO/ NEPHROLOGY TEL-X (Re Img Loc: [facility]/BUILDING 1 Service: Unknown (Case [id number] COMPLETE) KNEE 3 VIEWS(RIGHT) (RAD Det eder) CPT:89345 Proc Modifiers : RIGHT Reason for Study: pain (Case 250 COMPLETE) KNEES BILAT STANDING (RAD De tailed) CPT:59413 (Case 251 COMPLETE) KNEE 3 VIEWS (LEFT) (RAD Det eder) CPT:24864 Proc Modifiers : LEFT Clinical History: Report Status: Verified Date Reported: MAY 16, 2022 Date Verified: MAY 16, 2022 Stencil Printer E-Sig: Report: KNEE 3 VIEWS(RIGHT) [PRINTSET], KNEES BILAT STA NDING [PRINTSET], KNEE 3 VIEWS (LEFT) [PRINTSET] INDICATION: pain COMPARISON: None TECHNIQUE: 9 views of the bilateral knees, subm itted to the [place] National Teleradiology Program (NTP) for interp retation. Impression: RIGHT: No acute fracture or traumatic malalignm ent. 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 Moderate degenerative changes of the patellofem oral knee compartment. Moderate knee joint effusion LEFT: No acute fracture or traumatic alignment. Advanced tricompartmental degenerative changes. No knee joint effusion READING PHYSICIAN: Rosales Cartagena MD -[id number] 01 05/16/2022 14:17 EST [facility] National Teleradiology Program [phone] (For Medical Practitioner Use Only ) Attention Patients / Veterans: If you have ques tions or concerns about these test results, please contact your o [facility] provider or primary care team. Primary Diagnostic Code: NO ALERT REQUIRED Primary Interpreting Staff: RADIOLOGY,OUTSIDE SERVICE, Staff Physician / Encounter Notes: All associated encounter notes This section contains the clinical notes associated to the Encounter. 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 currently paying 30 dollars an hour from a [employer] so th at he can continue to do this, would like the [facility] to help if possible. [place] and is able to shower and dress himself. He wheels his chair to and from pool where the staff then uses a lift to get him in and out of pool. Will use wal ker to ambulate to and from lift. Advised him that the V A does not provide MARKETING OPERATIONS ASSISTANT if he is as independent as he is saying, so request may be denied. Will reach out to [facility] to advise then follow-up with vet. Understood and agreed to bayron fuller /pat/ ASHLEY ESTRADA RN REGISTERED NURSE Signed: 04/22/2022 09:22 Receipt Acknowledged By: * AWAITING SIGNATURE * JULIANNE WILLINGHAM
--- OUTSIDE RECORDS SUMMARY | 2022-06-03 16:01 | XMS_ITS ---
:1945 Author Organization Department of [facility] rs Address [address] [place] [address] Support Name Relationship Address Phone ROLANDO LAWLER Unavailable [address] [place] [place] [address] KELSEY HAILE Unavailable [address] [place] [address] Insurance Providers: All historical and current Section [...] MEDICARE MEDICARE PART Apr 25, PART A [id number] [id number] BRAEDENLA ND PATIENT (WNR) (M) A 2010 RENEE AVALOS MEDICARE MEDICARE PART Apr 25, PART B [id number] [id number] BRAEDENLA ND PATIENT (WNR) (M) B 2010 RENEE AVALOS MEDICARE MEDICARE PART Apr 25, PART B [id number] BRAEDENLA ND PATIENT (WNR) (M) B 2010 RENEE AVALOS MEDICARE MEDICARE PART Apr 25, PART A [id number] BRAEDENLA ND PATIENT (WNR) (M) A 2010 RENEE AVALOS Selected Encounter This section includes the information on record at [place] for the Encounter. Date/Time Encounter Type Encounter Description Reason Provider Source Mar 20, 2022 03:50 Outpatient Encounter RENAL/NEPHROL(EXCEPT PM DIALYSIS) IHE Encounter Template Text not used by VA Plan of Treatment: Future Appointments (+ 6 months) and Future Tests (+/- 45 days) The Plan of Treatment section includes future care activities for the patient from all [place] [facility]. This section includes future appointments and future orders which are active, pending orscheduled.Future Appointments This section includes appointments that were scheduled to occur 6 months from the date of the Encounter, up to a maximum of 20 appointments. The data comes from all [facility]. Appointment Date/Time Appointment Type Appointment Facili ty Name May 01, 2022 10:00 AM [facility] May 16, 2022 09:00 AM [facility] [place] [place] [facility] May 16, 2022 10:00 AM AMBULATORY - REHAB MEDICINE [facility] W [place]N [place] [facility] Jun 18, 2022 11:30 AM AMBULATORY - REHAB MEDICINE [facility] W STRN [place] [facility] Jun 25, 2022 11:30 AM AMBULATORY - REHAB MEDICINE [facility] W [place]N [place] [facility] Jul 04, 2022 01:00 PM AMBULATORY - REHAB MEDICINE [facility] STR[facility] [place] [facility] Active, Pending, and Scheduled Orders This section includes a listing of several types of active, pending, and scheduled orders, including clinic medications orders, diagnostic test orders, procedure orders and consult orders; where the start date of the order is 45 days before the date of the Encounter or 45 days after the date of the Encounter. The data comes from all [facility]. Test Date/Time Test Type Test Details Facility Name Mar 02, 2022 12:00 Laboratory - BASIC METABOLIC PANEL [facility] L WSTRN AM Chemistry Order (non-fasting) [facility] ([facility] Mar 02, 2022 12:00 Laboratory - CBC BLOOD (LAV-BLOOD) [facility] WSTRN AM Chemistry Order [facility] Mar 02, 2022 12:00 Laboratory - IRON & TIBC PANEL BLOOD [facility] TRL WSTRN AM Chemistry Order (SST-SERUM) [facility] Mar 02, 2022 12:00 Laboratory - FERRITIN BLOOD [facility] WSTR N AM Chemistry Order (SST-SERUM) [facility] Mar 02, 2022 12:00 Laboratory - RETICULOCYTES BLOOD [facility] WSTRN AM Chemistry Order (LAV-BLOOD) [facility] Mar 02, 2022 12:00 Laboratory - MICROALBUMIN CREATININE [facility]RL WSTR[facility] AM Chemistry Order RATIO PANEL URINE [place] [facility] S (RANDOM) SP Social History: Smoking Status (Most current) and Tobacco Use (All prior to encounter date) This section includes the most current, and the historical, smoking and tobacco-related health factors from the [place] facility where the Encounter took place.Current Smoking Status This section includes the most current smoking, or tobacco-related health factor, from the [place] facility where the Encounter took place. Date/Time Current Smoking Status Comment Facility May 09, 2020 01:30 PM VA-TOBACCO NEVER USED [facility] C NTRL [place] [place] [facility] Tobacco Use History This section includes a history of the smoking, or tobacco- related health factors, that were collected on or before the date of the Encounter. The data comes from the [place] facility where the Encounter took place. Date/Time Smoking Status/Tobacco Use Comment [facility] Feb 11, 2020 03:54 PM VA-TOBACCO NEVER USED VA C NTRL [place] [facility] Feb 05, 2019 08:10 AM VA-TOBACCO FORMER USER [facility] [place] [facility] Feb 05, 2019 08:10 AM VA-TOBACCO QUIT 15 YRS OR [facility] [place] MORE [facility] Apr 14, 2017 02:07 PM QUIT TOBACCO USE > 7 YEARS [facility] [place] [place] [facility] Jan 05, 2016 02:32 PM LIFETIME NON-TOBACCO USER [facility] [place] [facility] Nov 29, 2009 09:18 AM LIFETIME NON-TOBACCO USER [facility] [place] [facility] Advance Directives: All historical and current Section Date Range: From patient's date of to the date document was created. This section includes ALL of a patient's completed or amended VA Advance and Rescinded Directives. The entries below indicate that a directive exists for the patient, but an actual copy is not included with this document. The data comes from all [place] facilities. Date Advance Directives Provider Source Nov 13, 2017 ADVANCE DIRECTIVE MUSA STRINGER [facility] [place] [facility] Nov 12, 2017 GOALS & PREFERENCES TO MUSA STRINGER VA C NTRL WSTRN INFORM LIFE-SUSTAINING [place] [facility] TREATMENT PLAN Encounter Notes: All associated encounter notes This section contains the clinical notes associated to the Encounter. Date/Time Encounter Note(s) Provider Source Mar 20, 2022 03:50 PM TELEPHONE ENCOUNTER NOTE: EVA ESPINO CNTRL WSTRN LOCAL TITLE: TELEPHONE NOTE/SPECIALTY CLINIC [place] [facility] STANDARD TITLE: TELEPHONE ENCOUNTER NOTE DATE OF NOTE: MAR 20, 2022@15:50 ENTRY DATE: MAR 20, 2022@15:50:51 AUTHOR: EVA ESPINO EXP COSIGNER: URGENCY: STATUS: COMPLETED Called and left message on voicemail. Patients a ppointment with CWM/NO/Nephrology/Prov on 03/27/2022 @ 1p Needs to be rescheduled with a PID of (03/02/2022. Letter mailed. , ext. [phone]. /pat/ EVA ESPINO ADVANCED HEAT PLANT SPECIALIST Signed: 03/20/2022 15:52
--- OUTSIDE RECORDS SUMMARY | 2022-06-03 16:01 | XMS_ITS | Encounter Summary ---
:1945 Author Organization Department of [facility] rs Address [address] [place] [address] Support Name Relationship Address Phone ROLANDO LAWLER Unavailable [address] [phone] [place] [address] KELSEY HAILE Unavailable [address] [facility] [place] [address] Insurance Providers: All historical and current Section [...] MEDICARE MEDICARE PART Apr 25, PART A [id number] LANGLA ND PATIENT (WNR) (M) A 2010 RENEE AVALOS MEDICARE MEDICARE PART Apr 25, PART B [id number] LANGLA ND PATIENT (WNR) (M) B 2010 RENEE AVALOS MEDICARE MEDICARE PART Apr 25, PART A [id number] BRAEDENLA ND PATIENT (WNR) (M) A 2010 RENEE AVALOS MEDICARE MEDICARE PART Apr 25, PART B [id number] BRAEDENLA ND PATIENT (WNR) (M) B 2010 RENEE AVALOS Selected Encounter This section includes the information on record at [place] for the Encounter. Date/Time Encounter Type Encounter Description Reason Provider Source Jan 30, 2022 01:57 Outpatient Encounter PM&RS PHYSICIAN PM IHE Encounter Template Text not used by VA Plan of Treatment: Future Appointments (+ 6 months) and Future Tests (+/- 45 days) The Plan of Treatment section includes future care activities for the patient from all [place] [facility]. This section includes future appointments and future orders which are active, pending orscheduled.Future Appointments This section includes appointments that were scheduled to occur 6 months from the date of the Encounter, up to a maximum of 20 appointments. The data comes from all [facility]. Appointment Date/Time Appointment Type Appointment Facili ty Name May 01, 2022 10:00 AM [facility] May 16, 2022 09:00 AM [facility] [place] [facility] May 16, 2022 10:00 AM AMBULATORY - [facility]AB [facility] [place] [facility] Jun 18, 2022 11:30 AM AMBULATORY - [facility] [place] [facility] Jun 25, 2022 11:30 AM AMBULATORY - [facility] [place] [facility] Jul 04, 2022 01:00 PM AMBULATORY - REHAB MEDICINE [facility] [place] [facility] Active, Pending, and Scheduled Orders This section includes a listing of several types of active, pending, and scheduled orders, including clinic medications orders, diagnostic test orders, procedure orders and consult orders; where the start date of the order is 45 days before the date of the Encounter or 45 days after the date of the Encounter. The data comes from all [facility]. Test Date/Time Test Type Test Details Facility Name Jan 30, 2022 12:00 Laboratory - LIPID PANEL FASTING [facility] AM Chemistry [facility] Jan 30, 2022 12:00 Laboratory - MAGNESIUM BLOOD [facility] WSTR N AM Chemistry Order (SST-SERUM) [place] [facility] Jan 30, 2022 12:00 Laboratory - CALCIUM BLOOD [facility] WSTR N AM Chemistry Order ([facility]ST[facility]UM[facility] Jan 30, 2022 12:00 Laboratory - MICROALBUMIN CREATININE [facility] W[facility] AM Chemistry Order RATIO PANEL URINE [facility] S (RANDOM) Jan 30, 2022 12:00 Laboratory - BASIC METABOLIC PANEL [facility] AM Chemistry Order (non-fasting) [facility] (SST-SERUM) Jan 30, 2022 12:00 Laboratory - CBC BLOOD (LAV-BLOOD) [facility] AM Chemistry Order [facility] [place] [facility] Jan 30, 2022 12:00 Laboratory - IRON & TIBC PANEL BLOOD [facility] W[facility] AM Chemistry Order (SST-SERUM) [facility] [place] [facility] Jan 30, 2022 12:00 Laboratory - FERRITIN BLOOD [facility] N AM Chemistry Order (SST-SERUM) [place] [facility] Mar 02, 2022 12:00 Laboratory - BASIC METABOLIC PANEL [facility] AM Chemistry Order (non-fasting) [facility]LOOD [place] [facility] (SST-SERUM) SP Mar 02, 2022 12:00 Laboratory - CBC BLOOD (LAV-BLOOD) [facility] AM Chemistry Order [place] [facility] Mar 02, 2022 12:00 Laboratory - FERRITIN BLOOD [facility] AM Chemistry Order (SST-SERUM) [place] [facility] Mar 02, 2022 12:00 Laboratory - IRON & TIBC PANEL BLOOD [facility] AM Chemistry Order (SST-SERUM) [place] [facility] Mar 02, 2022 12:00 Laboratory - RETICULOCYTES BLOOD [facility] AM Chemistry Order (LAV-BLOOD) [place] [facility] Mar 02, 2022 12:00 Laboratory - MICROALBUMIN CREATININE [facility] W[facility] AM Chemistry Order RATIO PANEL URINE [place] [facility] S (RANDOM) SP Social History: Smoking Status (Most current) and Tobacco Use (All prior to encounter date) This section includes the most current, and the historical, smoking and tobacco-related health factors from the [place] facility where the Encounter took place.Current Smoking Status This section includes the most current smoking, or tobacco-related health factor, from the [place] facility where the Encounter took place. Date/Time Current Smoking Status Comment Facility May 09, 2020 01:30 PM VA-TOBACCO NEVER USED DE C NTRL [place] [facility] Tobacco Use History This section includes a history of the smoking, or tobacco- related health factors, that were collected on or before the date of the Encounter. The data comes from the [place] facility where the Encounter took place. Date/Time Smoking Status/Tobacco Use Comment [facility] Feb 11, 2020 03:54 PM VA-TOBACCO NEVER USED [facility] C NTRL [place] [facility] Feb 05, 2019 08:10 AM VA-TOBACCO FORMER USER [facility] [place] [facility] Feb 05, 2019 08:10 AM VA-TOBACCO QUIT 15 YRS OR [facility] [place] MORE [facility] Apr 14, 2017 02:07 PM QUIT TOBACCO USE > 7 YEARS [facility] [place] AGO [facility] Jan 05, 2016 02:32 PM LIFETIME [...] this document. The data comes from all [place] facilities. Date Advance Directives Provider Source Nov 13, 2017 ADVANCE DIRECTIVE MUSA STRINGER [facility] [place] [facility] Nov 12, 2017 GOALS & PREFERENCES TO MUSA STRINGER [facility] C NTRL W[facility] INFORM LIFE-SUSTAINING [place] [facility] TREATMENT PLAN Encounter Notes: All associated encounter notes This section contains the clinical notes associated to the Encounter. Date/Time Encounter Note(s) Provider Source Jan 30, 2022 01:57 PM TELEPHONE ENCOUNTER NOTE: AKIRA RAI [facility] LOCAL TITLE: TELEPHONE NOTE/SPECIALTY CLINIC [place] [facility] STANDARD TITLE: TELEPHONE ENCOUNTER NOTE DATE OF NOTE: JAN 30, 2022@13:57 ENTRY DATE: JAN 30, 2022@13:57:54 AUTHOR: KRAIG RAI EXP COSIGNER: URGENCY: STATUS: COMPLETED Blade Grinder accessed chart due to following reason: Phill pitt called requesting referral to Med Rehab for knee pain. 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
--- OUTSIDE RECORDS SUMMARY | 2022-06-03 16:01 | XMS_ITS | Encounter Summary ---
:1945 Author Organization Department of [facility] rs Address [address] [place] [address] Support Name Relationship Address Phone ROLANDO LAWLER Unavailable [address] [facility] [address] [phone] [place] [address] KELSEY HAILE Unavailable [address] [facility] [place] [address] Insurance Providers: All historical and current Section [...] MEDICARE MEDICARE PART Apr 25, PART A [id number] [id number] LANGLA ND PATIENT (WNR) (M) A 2010 RENEE AVALOS MEDICARE MEDICARE PART Apr 25, PART B [id number] [phone] LANGLA ND PATIENT (WNR) (M) B 2010 RENEE AVALOS MEDICARE MEDICARE PART Apr 25, PART B [id number] BRAEDENLA ND PATIENT (WNR) (M) B 2010 RENEE AVALOS MEDICARE MEDICARE PART Apr 25, PART A [id number] BRAEDENLA ND PATIENT (WNR) (M) A 2010 RENEE AVALOS Selected Encounter This section includes the information on record at [place] for the Encounter. Date/Time Encounter Type Encounter Description Reason Provider Source Feb 11, 2022 12:00 Outpatient Encounter EVENT (HISTORICAL) AM IHE Encounter Template Text not used by VA Plan of Treatment: Future Appointments (+ 6 months) and Future Tests (+/- 45 days) The Plan of Treatment section includes future care activities for the patient [facility] all [place] [facility]. This section includes future appointments and future orders which are active, pending orscheduled.Future Appointments This section includes appointments that were scheduled to occur 6 months from the date of the Encounter, up to a maximum of 20 appointments. The data comes from all [facility]. Appointment Date/Time Appointment Type Appointment Facili ty Name May 01, 2022 10:00 AM [facility] May 16, 2022 09:00 AM [facility] May 16, 2022 10:00 AM AMBULATORY - REHAB MEDICINE [facility] [place] [facility] Jun 18, 2022 11:30 AM AMBULATORY - REHAB MEDICINE [facility] [place] [facility] Jun 25, 2022 11:30 AM AMBULATORY - REHAB MEDICINE [facility] [place] [facility] Jul 04, 2022 01:00 PM [facility] Active, Pending, and Scheduled Orders This section includes a listing of several types of active, pending, and scheduled orders, including clinic medications orders, diagnostic test orders, procedure orders and consult orders; where the start date of the order is 45 days before the date of the Encounter or 45 days after the date of the Encounter. The data comes from all [facility]. Test Date/Time Test Type Test Details Facility Name Jan 30, 2022 12:00 Laboratory - LIPID PANEL FASTING [facility] WSTRN AM Chemistry Order BLOOD (SST-SERUM) [facility] Jan 30, 2022 12:00 Laboratory - MAGNESIUM BLOOD [facility] WSTR N AM Chemistry Order (SST-SERUM) [facility] Jan 30, 2022 12:00 Laboratory - MICROALBUMIN CREATININE [facility] WSTRN AM Chemistry Order RATIO PANEL URINE [facility] S (RANDOM) Jan 30, 2022 12:00 Laboratory - CALCIUM BLOOD [facility] WSTR N AM Chemistry Order (SST-SERUM) [facility] Jan 30, 2022 12:00 Laboratory - CBC BLOOD (LAV-BLOOD) [facility] WSTRN AM Chemistry Order [facility] Jan 30, 2022 12:00 Laboratory - BASIC METABOLIC PANEL [facility] AM Chemistry Order (non-fasting) BLOOD [place] [facility] (SST-SERUM) SP Jan 30, 2022 12:00 Laboratory - IRON [...] WSTRN AM Chemistry Order (SST-SERUM) [place] [facility] Mar 02, 2022 12:00 Laboratory - FERRITIN BLOOD [facility] N AM Chemistry Order (SST-SERUM) [place] [facility] Mar 02, 2022 12:00 Laboratory - RETICULOCYTES BLOOD [facility] AM Chemistry Order (LAV-BLOOD) [place] [facility] Mar 02, 2022 12:00 Laboratory - [...] 09, 2020 01:30 PM VA-TOBACCO NEVER USED [place] C NTRL [place] [facility] Tobacco Use History This section includes a history of the smoking, or tobacco- related health factors, that were collected on or before the date of the Encounter. The data comes from the [place] facility where the Encounter took place. Date/Time Smoking Status/Tobacco Use Comment [facility] Feb 11, 2020 03:54 PM VA-TOBACCO NEVER USED [facility] C [facility]TRL [place] [facility] Feb 05, 2019 08:10 AM VA-TOBACCO FORMER USER [facility] [place] [facility] Feb 05, 2019 08:10 AM VA-TOBACCO QUIT 15 YRS OR [facility] [place] MORE [facility] Apr 14, 2017 02:07 PM QUIT TOBACCO USE > 7 YEARS [facility] [place] [place] AGO [facility] Jan 05, 2016 02:32 PM LIFETIME [...] DIRECTIVE MUSA STRINGER [facility] [place] [facility] Nov 12, 2017 GOALS & PREFERENCES TO MUSA STRINGER VA C NTRL W[facility] INFORM LIFE-SUSTAINING [place] [facility] TREATMENT PLAN Encounter Notes: All associated encounter notes This section contains the clinical notes associated to the Encounter. Date/Time Encounter Note(s) Provider Source Feb 11, 2022 12:00 AM NONVA DIAGNOSTIC STUDY REPORT: [facility] LOCAL TITLE: NON-VA DIAGNOSTICS [place] [facility] STANDARD TITLE: NONVA DIAGNOSTIC STUDY REPORT DATE OF NOTE: FEB 11, 2022 ENTRY DATE: APR 09 022@09:49:34 AUTHOR: ZIA MURILLO EXP COSIGNER: URGENCY: STATUS: COMPLETED VistA Imaging - Scanned Document SCANNED DOCUMENT SIGNATURE NOT REQUIRED Electronically Filed: 04/09/2022 by: ZIA MURILLO
--- OUTSIDE RECORDS SUMMARY | 2022-06-03 16:01 | XMS_ITS | Encounter Summary ---
:1945 Author Organization Department of [facility] rs Address [address] [place] [address] Support Name Relationship Address Phone ROLANDO LAWLER Unavailable [address] [place] [address] KELSEY HAILE Unavailable [address] [facility] [place] [address] Insurance Providers: All historical and current Section [...] MEDICARE MEDICARE PART Apr 25, PART A [id number] [phone] LANGLA ND PATIENT (WNR) (M) A 2010 RENEE AVALOS MEDICARE MEDICARE PART Apr 25, PART B [id number] [phone] LANGLA ND PATIENT (WNR) (M) B 2010 RENEE AVALOS MEDICARE MEDICARE PART Apr 25, PART A [id number] BRAEDENLA ND PATIENT (WNR) (M) A 2010 RENEE AVALOS MEDICARE MEDICARE PART Apr 25, PART B [id number] BRAEDENLA ND PATIENT (WNR) (M) B 2010 RENEE AVALOS Selected Encounter This section includes the information on record at [place] for the Encounter. Date/Time Encounter Type Encounter Description Reason Provider Source Feb 19, 2022 12:00 Outpatient Encounter EVENT (HISTORICAL) AM IHE Encounter Template Text not used by VA Plan of Treatment: Future Appointments (+ 6 months) and Future Tests (+/- 45 days) The Plan of Treatment section includes future care activities for the patient from all [place] [facility]. This section includes future appointments and future orders which are active, pending orscheduled.Future Appointments This section includes appointments that were scheduled to occur 6 months from the date of the Encounter, up to a maximum of 20 appointments. The data comes from all [facility]. Appointment Date/Time Appointment Type Appointment Facili ty Name May 01, 2022 10:00 AM [facility] May 16, 2022 09:00 AM [facility] [facility] May 16, 2022 10:00 AM AMBULATORY - [facility] [place] [facility] Jun 18, 2022 11:30 AM AMBULATORY - [facility] [place] [facility] Jun 25, 2022 11:30 AM AMBULATORY - [facility] [place] [facility] Jul 04, 2022 01:00 PM AMBULATORY - REHAB MEDICINE [facility] W STRN [place] [facility] Active, Pending, and Scheduled Orders This section includes a listing of several types of active, pending, and scheduled orders, including clinic medications orders, diagnostic test orders, procedure orders and consult orders; where the start date of the order is 45 days before the date of the Encounter or 45 days after the date of the Encounter. The data comes from all [facility]. Test Date/Time Test Type Test Details Facility Name Jan 30, 2022 12:00 Laboratory - LIPID PANEL FASTING [facility] AM Chemistry [facility] Jan 30, 2022 12:00 Laboratory - MAGNESIUM BLOOD [facility] WSTR N AM Chemistry Order (SST-SERUM) [place] [facility] Jan 30, 2022 12:00 Laboratory - CALCIUM BLOOD [facility] WSTR N AM Chemistry [facility] ([facility]SERUM[facility] Jan 30, 2022 12:00 Laboratory - MICROALBUMIN CREATININE [facility] TR WSTRN AM Chemistry Order RATIO PANEL URINE [facility] S (RANDOM) Jan 30, 2022 12:00 Laboratory - BASIC METABOLIC PANEL [facility] AM Chemistry Order (non-fasting) [facility] (SST-SERUM) Jan 30, 2022 12:00 [...] HCS Mar 02, 2022 12:00 Laboratory - CBC BLOOD (LAV-BLOOD) [facility] AM Chemistry Order [facility] [place] [facility] Mar 02, 2022 12:00 Laboratory - FERRITIN BLOOD [facility] N AM Chemistry Order (SST-SERUM) [facility] [place] [facility] Mar 02, 2022 12:00 Laboratory - RETICULOCYTES BLOOD [facility] AM Chemistry Order (LAV-BLOOD) [facility] [place] [facility] Mar 02, 2022 12:00 Laboratory - MICROALBUMIN CREATININE [facility] WSTRN AM Chemistry Order RATIO PANEL URINE [place] [facility] S (RANDOM) SP Mar 02, 2022 12:00 Laboratory - BASIC METABOLIC PANEL [facility] AM Chemistry Order (non-fasting) [facility]LOOD [place] [facility] (SST-SERUM) SP Social History: Smoking Status (Most current) [...] VA-TOBACCO NEVER USED [place] C NTRL [place] [facility] Tobacco Use History This section includes a history of the smoking, or tobacco- related health factors, that were collected on or before the date of the Encounter. The data comes from the [place] facility where the Encounter took place. Date/Time Smoking Status/Tobacco Use Comment [facility] Feb 11, 2020 03:54 PM VA-TOBACCO NEVER USED [facility] C [facility]TRL [place] [facility] Feb 05, 2019 08:10 AM VA-TOBACCO FORMER USER [facility] [place] [facility] Feb 05, 2019 08:10 AM VA-TOBACCO QUIT 15 YRS OR [facility] [place] [place] MORE [facility] Apr 14, 2017 02:07 PM QUIT TOBACCO USE > 7 YEARS [facility] [place] [place] A[place] [facility] Jan 05, 2016 02:32 PM [...] DIRECTIVE MUSA STRINGER [facility] [place] [facility] Nov 12, 2017 GOALS & PREFERENCES TO MUSA STRINGER VA C NTRL WSTR[place] INFORM LIFE-SUSTAINING [place] [facility] TREATMENT PLAN Encounter Notes: All associated encounter notes This section contains the clinical notes associated to the Encounter. Date/Time Encounter Note(s) Provider Source Feb 19, 2022 12:00 AM NONVA DIAGNOSTIC STUDY REPORT: [facility] LOCAL TITLE: NON-VA DIAGNOSTICS [place] [facility] STANDARD TITLE: NONVA DIAGNOSTIC STUDY REPORT DATE OF NOTE: FEB 19, 2022 ENTRY DATE: APR 09 022@09:55:41 AUTHOR: ZIA MURILLO EXP COSIGNER: URGENCY: STATUS: COMPLETED VistA Imaging - Scanned Document SCANNED DOCUMENT SIGNATURE NOT REQUIRED Electronically Filed: 04/09/2022 by: ZIA MURILLO
--- OUTSIDE RECORDS SUMMARY | 2022-06-03 16:01 | XMS_ITS | Encounter Summary ---
:1945 Author Organization Department of [facility] rs Address [address] [place] [address] Support Name Relationship Address Phone ROLANDO LAWLER Unavailable [address] [facility] [address] [phone] [place] [address] KELSEY HAILE Unavailable [address] [facility] [address] Insurance Providers: All historical and current Section [...] MEDICARE MEDICARE PART Apr 25, PART A [id number] LANGLA ND PATIENT (WNR) (M) A 2010 REENE AVALOS MEDICARE MEDICARE PART Apr 25, PART B [id number] LANGLA ND PATIENT (WNR) (M) B 2010 RENEE AVALOS MEDICARE MEDICARE PART Apr 25, PART A [id number] BRAEDENLA ND PATIENT (WNR) (M) A 2010 RENEE AVALOS MEDICARE MEDICARE PART Apr 25, PART B [id number] LANGLA ND PATIENT (WNR) (M) B 2010 RENEE AVALOS Selected Encounter This section includes the information on record at [place] for the Encounter. Date/Time Encounter Type Encounter Description Reason Provider Source Jan 31, 2022 01:02 Outpatient Encounter PM&RS PHYSICIAN PM IHE Encounter Template Text not used by [facility] Plan of Treatment: Future Appointments (+ 6 months) and Future Tests (+/- 45 days) The Plan of Treatment section includes future care activities for the patient from all [place] [facility]. This section includes future appointments and future orders which are active, pending orscheduled.Future Appointments This section includes appointments that were scheduled to occur 6 months from the date of the Encounter, up to a maximum of 20 appointments. The data comes from all [facility]. Appointment Date/Time Appointment Type Appointment Facili ty Name May 01, 2022 10:00 AM [facility] May 16, 2022 09:00 AM [facility] [place] [facility] May 16, 2022 10:00 AM AMBULATORY - REHAB MEDICINE [facility] [place] [facility] Jun 18, 2022 11:30 AM AMBULATORY - REHAB MEDICINE [facility] [place] [place] [facility] Jun 25, 2022 11:30 AM AMBULATORY - REHAB MEDICINE [facility] [place] [place] [facility] Jul 04, 2022 01:00 PM [facility] Active, Pending, and Scheduled Orders This section includes a listing of several types of active, pending, and scheduled orders, including clinic medications orders, diagnostic test orders, procedure orders and consult orders; where the start date of the order is 45 days before the date of the Encounter or 45 days after the date of the Encounter. The data comes from all [facility]. Test Date/Time Test Type Test Details Facility Name Jan 30, 2022 12:00 Laboratory - MAGNESIUM BLOOD [facility] WSTR N AM Chemistry Order (SST-SERUM) [facility] Jan 30, 2022 12:00 Laboratory - LIPID PANEL FASTING [facility] W[facility]N AM Chemistry Order BLOOD (SST-SERUM) [facility] Jan 30, 2022 12:00 Laboratory - MICROALBUMIN CREATININE [facility] WSTRN AM Chemistry Order RATIO PANEL URINE [facility] S (RANDOM) Jan 30, 2022 12:00 Laboratory - CALCIUM BLOOD [facility] WSTR N AM Chemistry Order (SST-SERUM) [facility] Jan 30, 2022 12:00 Laboratory - BASIC METABOLIC PANEL [facility] WSTRN AM Chemistry Order (non-fasting) BLOOD [facility] (SST-SERUM) Jan 30, 2022 12:00 Laboratory - IRON & TIBC PANEL BLOOD [facility] AM Chemistry Order (SST-SERUM) [facility] [place] [facility] Jan 30, 2022 12:00 Laboratory - FERRITIN BLOOD [facility] AM Chemistry Order (SST-SERUM) [facility] [place] [facility] Jan 30, 2022 12:00 Laboratory - CBC [...] SP Mar 02, 2022 12:00 Laboratory - IRON & TIBC PANEL BLOOD [facility] AM Chemistry Order (SST-SERUM) [place] [facility] Mar 02, 2022 12:00 Laboratory - FERRITIN BLOOD [facility] AM Chemistry Order (SST-SERUM) [place] [facility] Mar 02, 2022 12:00 Laboratory - RETICULOCYTES BLOOD [facility] AM Chemistry Order (LAV-BLOOD) [place] [facility] Mar 02, 2022 12:00 Laboratory - MICROALBUMIN CREATININE [facility] AM Chemistry Order RATIO PANEL URINE [place] [facility] S (RANDOM) SP Social History: Smoking Status (Most current) and Tobacco Use (All prior to encounter date) This section includes the most current, and the historical, smoking and tobacco-related health factors from the [place] facility where the Encounter took place.Current Smoking Status This section includes the most current smoking, or tobacco-related health factor, from the [place] facility where the Encounter took place. Date/Time Current Smoking Status Comment Facility May 09, 2020 01:30 PM VA-TOBACCO NEVER USED [place] C NTRL [place] [facility] Tobacco Use History This section includes a history of the smoking, or tobacco- related health factors, that were collected on or before the date of the Encounter. The data comes from the [place] facility where the Encounter took place. Date/Time Smoking Status/Tobacco Use Comment [facility] Feb 11, 2020 03:54 PM VA-TOBACCO NEVER USED [facility] [place] [facility] Feb 05, 2019 08:10 AM VA-TOBACCO FORMER USER [facility] [place] [facility] Feb 05, 2019 08:10 AM VA-TOBACCO QUIT 15 YRS OR [facility] [place] MORE [facility] Apr 14, 2017 02:07 PM QUIT TOBACCO USE > 7 YEARS [facility] [place] [facility] Jan 05, 2016 02:32 PM [...] this document. The data comes from all [place] facilities. Date Advance Directives Provider Source Nov 13, 2017 ADVANCE DIRECTIVE MUSA STRINGER [facility] [place] [facility] Nov 12, 2017 GOALS & PREFERENCES TO MUSA STRINGER [facility] C N[facility] W[facility] INFORM LIFE-SUSTAINING [place] [facility] TREATMENT PLAN Encounter Notes: All associated encounter notes This section contains the clinical notes associated to the Encounter. Date/Time Encounter Note(s) Provider Source Jan 31, 2022 01:02 PM LETTERS: CARISA BHATTI [place] [facility] W STRN LOCAL TITLE: PATIENT LETTER (B) [place] [facility] STANDARD TITLE: LETTERS DATE OF NOTE: JAN 31, 2022@13:02 ENTRY DATE: JAN 31, 2022@13:02:15 AUTHOR: CARISA BHATTI EXP COSIGNER: URGENCY: STATUS: COMPLETED JAN 31, 2022 RENEE LAWLER [address] [place] [id number] Dear RENEE LAWLER JR We would like to assist you in scheduling a [facility] appointment at the [place]. We have been unable to reach you by phone. To schedule this appointment please call toll [facility] Ext [phone]. Our booking appointment hours are Friday through Friday from 8:00 am to 4:00 pm. Please leave a message if you receive voicemail and let us know a good time and telephone number where we can reach you. If we dont hear back from you within 14 days fro m the date of this letter we will discontinue the request. If you have alread y scheduled this appointment, please disregard this letter. Your health is imp ortant to us. Sincerely, [facility] [address] [facility] [address] [place] [address] [place] [address] ext. [phone] [facility] [place] [facility] [address] [facility] [address] [place] [address] [place] [address] [phone] [facility] [address] [address] [place] [address] ext. [phone] [facility] [address] [place] [address] ext. [phone]
--- OUTSIDE RECORDS SUMMARY | 2022-06-03 16:02 | XMS_ITS | Encounter Summary ---
:1945 Author Organization Department [facility] rs Address [address] [place] [address] Support Name Relationship Address Phone ROLANDO LAWLER Unavailable [address] [facility] [address] [phone] [place] [address] KELSEY HAILE Unavailable [address] [place] [address] Insurance Providers: All historical and current Section [...] MEDICARE MEDICARE PART Apr 25, PART A [id number] BRAEDENLA ND PATIENT (WNR) (M) A 2010 RENEE AVALOS MEDICARE MEDICARE PART Apr 25, PART B [id number] BRAEDENLA ND PATIENT (WNR) (M) B 2010 RENEE AVALOS MEDICARE MEDICARE PART Apr 25, PART A [id number] BRAEDENLA ND PATIENT (WNR) (M) A 2010 RENEE AVALOS MEDICARE MEDICARE PART Apr 25, PART B [id number] [id number] BRAEDENLA ND PATIENT (WNR) (M) B 2010 RENEE AVALOS Selected Encounter This section includes the information on record at [place] for the Encounter. Date/Time Encounter Type Encounter Reason Provider Source Description Jul 25, 2021 Outpatient TELEPHONE/MEDICIN ICD-10-CM I12.9 RUBINA SIMS IR 11:00 AM Encounter E Hypertensive CHAPITO A chronic kidney disease w stg 1-4/unsp chr kdny with Provider Comments: Hypertensive Chronic Kidney Disease with Stage 1 through Stage 4 Chronic Kidney Disease, or unspecified Chronic Kidney Disease IHE Encounter Template Text not used by [place] Assessments - Encounter Diagnoses This section includes the primary and secondary diagnoses documented for the Encounter. Date/Time Primary/Secondary Diagnosis Name Provider Source Diagnosis Jul 25, 2021 PRIMARY Hypertensive DAILY SIMS [place] [facility] WSTRN 11:00 AM chronic kidney [place] [facility] [place] [facility] disease w stg 1-4/unsp chr kdny Jul 25, 2021 SECONDARY Anemia in chronic DAILY SIMS [place] [facility] 11:00 AM kidney disease [facility] [place] [facility] Jul 25, 2021 SECONDARY Chronic kidney [facility] 11:00 AM disease, stage 3 [facility] [place] [facility] unspecified Jul 25, 2021 SECONDARY Hyperlipidemia, [facility]ILY [facility]N 11:00 AM unspecified [place] [facility] Plan of Treatment: Future Appointments (+ 6 months) and Future Tests (+/- 45 days) The Plan of Treatment section includes future care activities for the patient from all [place] treatmentfacilities. This section includes future appointments and future orders which are active, pending orscheduled.Future Appointments This section includes appointments that were scheduled to occur 6 months from the date of the Encounter, up to a maximum of 20 appointments. The data comes from all [place] treatment facilities. Appointment Date/Time Appointment Type Appointment Facili ty Name Oct 31, 2021 01:00 PM [facility] Social History: Smoking Status (Most current) and Tobacco Use (All prior to encounter date) This section includes the most current, and the historical, smoking and tobacco-related health factors from the [place] facility where the Encounter took place.Current Smoking Status This section includes the most current smoking, or tobacco-related health factor, from the [place] facility where the Encounter took place. Date/Time Current Smoking Status Comment Facility May 09, 2020 01:30 PM [facility] Tobacco Use History This section includes a history of the smoking, or tobacco- related health factors, that were collected on or before the date of the Encounter. The data comes from the [place] facility where the Encounter took place. Date/Time Smoking Status/Tobacco Use Comment Facil ity Feb 11, 2020 03:54 PM VA-TOBACCO NEVER USED [facility] [facility] Feb 05, 2019 08:10 AM VA-TOBACCO FORMER USER [facility] [facility] Feb 05, 2019 08:10 AM VA-TOBACCO QUIT 15 YRS OR [facility] [place] [facility] Apr 14, 2017 02:07 PM QUIT TOBACCO USE > 7 YEARS [facility] [place] A[facility] Jan 05, 2016 02:32 PM LIFETIME NON-TOBACCO USER [facility] [facility] Nov 29, 2009 09:18 AM LIFETIME NON-TOBACCO USER [facility] [facility] Advance Directives: All historical and current Section Date Range: From patient's date of to the date document was created. This section includes ALL of a patient's completed or amended [place] Advance and Rescinded Directives. The entries below indicate that a directive exists for the patient, but an actual copy is not included with this document. The data comes from all [place] facilities. Date Advance Directives Provider Source Nov 13, 2017 ADVANCE DIRECTIVE MUSA STRINGER [facility] [facility] Nov 12, 2017 GOALS & PREFERENCES TO MUSA STRINGER VA C NTRL W[facility] INFORM LIFE-SUSTAINING [place] [facility] TREATMENT PLAN Encounter Notes: All associated encounter notes This section contains the clinical notes associated to the Encounter. Date/Time Encounter Note(s) Provider Source Jul 25, 2021 11:00 NEPHROLOGY E & M NOTE: ANANDA SIMS [place] [facility] LOCAL TITLE: NEPHROLOGY NOTE [facility] STANDARD TITLE: NEPHROLOGY E & M NOTE DATE OF NOTE: JUL 25, 2021@11:00 ENTRY DATE: JUL 25, 2021@11:00:29 AUTHOR: ANANDA SIMS EXP COSIGNER: URGENCY: STATUS: COMPLETED Nephrology Note Follow-Up Consultation Problems:CKD stage 3 Subjective Information:76 year old male with a history of GI cancer( for which he who has been treated with chemotx), hypertens ion, obesity and CKD stage 3 presenting for continued management of h is renal disease and related problems. the patient denies any new problems. The patient is back at [facility]. He states he is doing quite well. He denies any problems with his present medical regimen. He says he has a good appetite and they feed him well. Medications: Active and Recently Outpatient Medicatio ns (excluding Supplies): Active Non-VA Medications Status 1) Non-VA ASCORBIC ACID TAB BY MOUTH DAILY ACTIV E 2) Non-VA ASPIRIN 81MG EC TAB 81MG BY MOUTH ONCE DAILY ACTIVE 3) Non-VA COENZYME Q10 CAP/TAB DAILY ACTIVE 4) Non-VA FAMOTIDINE 20MG TAB 20MG BY MOUTH ONCE DAILY ACTIVE 5) Non-VA FISH OIL CAP,ORAL BY MOUTH DAILY ACTIV E 6) Non-VA L-CARNITINE TAB BY MOUTH DAILY ACTIVE 7) Non-VA LACTOBACILLUS ACIDOPHILUS TAB 1 CAPSUL E BY ACTIVE MOUTH ONCE DAILY 8) Non-VA LORATADINE 10MG TAB 10MG BY MOUTH ONCE DAILY ACTIVE 9) Non-VA MAGNESIUM OXIDE TAB BY MOUTH DAILY ACT VITALY 10) Non-VA METOPROLOL SUCCINATE 100MG SA TAB 100 MG BY ACTIVE MOUTH ONCE DAILY 11) Non-VA MULTIVITAMIN/MINERALS CAP/TAB 1 TABLE T BY ACTIVE MOUTH DAILY 12) Non-VA OTHER CAP/TAB HOMOCYSTEINE DAILY ACTI VE 13) Non-VA OTHER CAP/TAB RIBOSE DAILY ACTIVE 14) Non-VA VITAMIN D3 (CHOLECALCIFEROL) TAB BY [facility] ACTIVE DAILY 15) Non-VA VITAMIN E CAP,ORAL BY MOUTH DAILY ACT VITALY Review Of Systems: Assessment and Plans: Other Areas to address in e evaluation and management of the patient's CKD and to reduce renal disease progression is as follow s: #1, CKD stage 3: The patient is without uremic s x. The patient has lab reports from the [facility] Jul 23, 2021. It showed a normal bicarb (28), potassium(4.2). His GFR was 39 with a crea tinine of 1.7. His renal function is stable. No med changes. #2. Hypertension:The patient's blood pressure wa s 121/56. Will recommend that the patient continue to limit salt in his diet, exercise and continue to take his BP meds as prescribed. #3. Hyperlipidemia: the patient has no updated l ipid studies for review. Will obtain for f/u appt. 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 There was no ferritin for review. The patient is presently on multivitamin. the ronn mtz is not a candidate for procrit/epogen therapy at this time. #5. CKD-MBD: the patient's recent labs from 07/23 showed a alkaline phosphatase of 62, VitD(34), PO4(3.8), calcium(9 .2) and PTH(113). Will obtain magnesium in the future as part of his baseline bone studies. #6. Nutritional state: the patient's albumin was 3.7(apr 2021) is normal. the patient weight was 367!!!!!. He is encouraged to exercise, limit his intake and adhere to a heart healthy low fat diet. . This was a 20 minute visit [...] or non-VA provider. /pat/ ANANDA SIMS M.D. RECONCILER DIRECTOR FINANCIAL SERVICES Signed: 07/25/2021 11:38 Receipt Acknowledged By: * AWAITING SIGNATURE * QUIRINO SOLIMAN Jul 19, 2021 09:41 TELEPHONE ENCOUNTER NOTE: QUIRINO SOLIMAN [place] [facility] AM [facility] TITLE: TELEPHONE NOTE/SPECIALTY [facility]INIC [facility] STAND[facility] TITLE: TELEPHONE ENCOUNTER NOTE DATE OF NOTE: JUL 19, 2021@09:41 ENTRY DATE: JUL 19, 2021@09:41:51 AUTHOR: QUIRINO SOLIMAN EXP COSIGNER: URGENCY: STATUS: COMPLETED TELEPHONE NOTE/SPECIALTY CLINIC Has ADDENDA Spoke with the nursing staff on at the [facility]. They request that the MD call the floor directly and they will have the patient there. [phone]. I have faxed lab orders to [phone]. Will al so fax MD's note when it is complete. /es/ QUIRINO Soliman LPN LICENSED PRACTICAL NURSE Signed: 07/19/2021 09:45 Receipt Acknowledged By: * AWAITING SIGNATURE * ANANDA SIMS 07/19/2021 ADDENDUM STATUS: UNSIGNED You may not VIEW this UNSIGNED Addendum.
--- OUTSIDE RECORDS SUMMARY | 2022-06-03 16:02 | XMS_ITS | Encounter Summary ---
:1945 [address] [facility] Address [address] [place] [address] Support Name Relationship Address Phone ROLANDO LAWLER Unavailable [address] [facility] [place] [address] KELSEY HAILE Unavailable [address] [place] [address] Insurance Providers: All historical and current Section [...] MEDICARE MEDICARE PART Apr 25, PART A [id number] [id number] LANGLA ND PATIENT (WNR) (M) A 2010 RNEEE AVALOS MEDICARE MEDICARE PART Apr 25, PART B [id number] [id number] LANGLA ND PATIENT (WNR) (M) B 2010 RENEE AVALOS MEDICARE MEDICARE PART Apr 25, PART A [id number] BRAEDENLA ND PATIENT (WNR) (M) A 2010 RENEE AVALOS MEDICARE MEDICARE PART Apr 25, PART B [id number] BRAEDENLA ND PATIENT (WNR) (M) B 2010 RENEE AVALOS Selected Encounter This section includes the information on record at [place] for the Encounter. Date/Time Encounter Type Encounter Description Reason Provider Source Jan 14, 2022 10:58 Outpatient Encounter TELEPHONE/ANCILLARY AM IHE Encounter Template Text not used by [facility] Plan of Treatment: Future Appointments (+ 6 months) and Future Tests (+/- 45 days) The Plan of Treatment section includes future care activities for the patient from all VA treatmentfacilities. This section includes future appointments and future orders which are active, pending orscheduled.Future Appointments This section includes appointments that were scheduled to occur 6 months from the date of the Encounter, up to a maximum of 20 appointments. The data comes from all [facility]. Appointment Date/Time Appointment Type Appointment Facili ty Name May 01, 2022 10:00 AM [facility] May 16, 2022 09:00 AM [facility] [place] [facility] May 16, 2022 10:00 AM AMBULATORY - REHAB MEDICINE [facility] [place]N [place] [facility] Jun 18, 2022 11:30 AM AMBULATORY - REHAB MEDICINE [facility] [place] [facility] Jun 25, 2022 11:30 AM AMBULATORY - REHAB MEDICINE [facility] [place] [facility] Jul 04, 2022 01:00 PM [facility] Active, Pending, and Scheduled Orders This section includes a listing of several types of active, pending, and scheduled orders, including clinic medications orders, diagnostic test orders, procedure orders and consult orders; where the start date of the order is 45 days before the date of the Encounter or 45 days after the date of the Encounter. The data comes from all [facility]. Test Date/Time Test Type Test Details Facility Name Jan 30, 2022 12:00 Laboratory - LIPID PANEL FASTING [facility] WSTRN AM Chemistry Order BLOOD (SST-SERUM) [facility] [place] Jan 30, 2022 12:00 Laboratory - MAGNESIUM BLOOD [facility] WSTR N AM Chemistry Order (SST-SERUM) [facility] [place] Jan 30, 2022 12:00 Laboratory - CALCIUM BLOOD [facility] WSTR N AM Chemistry Order (SST-SERUM) [facility] [place] Jan 30, 2022 12:00 Laboratory - CBC BLOOD (LAV-BLOOD) [facility] AM Chemistry Order [facility] Jan 30, 2022 12:00 Laboratory - IRON & TIBC PANEL BLOOD [facility] WSTRN AM Chemistry Order (SST-SERUM) [facility] [place] Jan 30, 2022 12:00 Laboratory - MICROALBUMIN CREATININE [facility] AM Chemistry Order RATIO PANEL URINE [place] [facility] (RANDOM) Jan 30, 2022 12:00 Laboratory - BASIC METABOLIC PANEL [facility] AM Chemistry Order (non-fasting) [facility]LOOD [place] [facility] (SST-SERUM) Jan 30, 2022 12:00 Laboratory - FERRITIN BLOOD [facility] W[facility] N AM Chemistry Order (SST-SERUM) [place] [facility] Social History: Smoking Status (Most current) [...] took place. Date/Time Smoking Status/Tobacco Use Comment [facility] Feb 11, 2020 03:54 PM VA-TOBACCO NEVER USED [facility] C [facility] [facility] Feb 05, 2019 08:10 AM VA-TOBACCO FORMER USER [facility] [place] [facility] Feb 05, 2019 08:10 AM VA-TOBACCO QUIT 15 YRS OR [facility] [place] MORE [facility] Apr 14, 2017 02:07 PM QUIT TOBACCO USE > 7 YEARS [facility] [place] [place] [facility] Jan 05, 2016 02:32 PM LIFETIME NON-TOBACCO USER [facility] [place] [facility] Nov 29, 2009 09:18 AM LIFETIME NON-TOBACCO USER [facility] [place] [facility] Advance Directives: All historical and current Section Date Range: From patient's date of to the date document was created. This section includes ALL of a patient's completed or amended [place] Advance and Rescinded Directives. The entries below indicate that a directive exists for the patient, but an actual copy is not included with this document. The data comes from all [place] facilities. Date Advance Directives Provider Source Nov 13, 2017 ADVANCE DIRECTIVE JAIMEMUSA HUERTA [place] CNTRL [place] [facility] Nov 12, 2017 GOALS & PREFERENCES TO ANTOINEMUSA CORREIA OR C NTRL WSTRN INFORM LIFE-SUSTAINING [place] [facility] TREATMENT PLAN Encounter Notes: All associated encounter notes This section contains the clinical notes associated to the Encounter. Date/Time Encounter Note(s) Provider Source Jan 14, 2022 10:58 AM MOVE NOTE: LIVAN BYRD OR CNTRL W STRN [place] LOCAL TITLE: WEIGHT MANAGEMENT/MOVE! TELEPHONE NOTE [facility] STANDARD TITLE: MOVE NOTE DATE OF NOTE: JAN 14, 2022@10:58 ENTRY DATE: JAN 14, 2022@10:58:33 AUTHOR: LIVAN BYRD EXP COSIGNER: URGENCY: STATUS: COMPLETED A voice message was received from this [place] the weekend. The message stated that he is interested in joining a MOVE! group. A return call was placed to the this morning. A HIPPA compliant voice message was left requesting a call back to schedule the appt. /pat/ ADORE Barron, RD, LDN, CNPM Registered Dietitian Signed: 01/14/2022 10:59
--- OUTSIDE RECORDS SUMMARY | 2022-06-03 16:02 | XMS_ITS | Encounter Summary ---
:1945 Author Organization Department of [facility] rs Address [address] [place] [id number] Support Name Relationship Address Phone ROLANDO LAWLER Unavailable [address] [facility] [place] [address] KELSEY HAILE Unavailable [address] [facility] [place] [address] Insurance Providers: All historical and current Section [...] MEDICARE MEDICARE PART Apr 25, PART A [id number] [id number] LANGLA ND PATIENT (WNR) (M) A 2010 RENEE AVALOS MEDICARE MEDICARE PART Apr 25, PART B [id number] LANGLA ND PATIENT (WNR) (M) B 2010 RENEE AVALOS MEDICARE MEDICARE PART Apr 25, PART B [id number] BRAEDENLA ND PATIENT (WNR) (M) B 2010 RENEE AVALOS MEDICARE MEDICARE PART Apr 25, PART A [id number] BRAEDENLA ND PATIENT (WNR) (M) A 2010 RENEE AVALOS Selected Encounter This section includes the information on record at [place] for the Encounter. Date/Time Encounter Type Encounter Description Reason Provider Source Oct 24, 2021 12:00 Outpatient Encounter EVENT (HISTORICAL) AM IHE Encounter Template Text not used by VA Plan of Treatment: Future Appointments (+ 6 months) and Future Tests (+/- 45 days) The Plan of Treatment section includes future care activities for the patient from all [place] [facility]. This section includes future appointments and future orders which are active, pending orscheduled.Future Appointments This section includes appointments that were scheduled to occur 6 months from the date of the Encounter, up to a maximum of 20 appointments. The data comes from all [facility]. Appointment Date/Time Appointment Type Appointment Facili ty Name Oct 31, 2021 01:00 PM AMBULATORY - MEDICINE [facility] Active, Pending, and Scheduled Orders This section includes a listing of several types of active, pending, and scheduled orders, including clinic medications orders, diagnostic test orders, procedure orders and consult orders; where the start date of the order is 45 days before the date of the Encounter or 45 days after the date of the Encounter. The data comes from all [facility]. Test Date/Time Test Type Test Details Facility Name Oct 25, 2021 12:00 Laboratory - LIPID PANEL FASTING [facility] AM Chemistry Order BLOOD (SST-SERUM) [facility] Oct 25, 2021 12:00 Laboratory - MAGNESIUM BLOOD [facility] WSTR N AM Chemistry Order (SST-SERUM) [place] [facility] Oct 25, 2021 12:00 Laboratory - CALCIUM BLOOD [facility] WSTR N AM Chemistry Order (SST-SERUM) [place] [facility] Oct 25, 2021 12:00 Laboratory - MICROALBUMIN CREATININE [facility] T[facility] WSTRN AM Chemistry Order [facility] Oct 25, 2021 12:00 Laboratory - [facility]IC [facility]OLIC [facility]EL [facility] Chemistry Order (non-fasting) [facility]LOOD [place] [facility] (SST-SERUM) Oct 25, 2021 12:00 Laboratory - CBC BLOOD (LAV-BLOOD) [place] [facility] AM Chemistry Order SP [place] [facility] Oct 25, 2021 12:00 Laboratory - IRON & TIBC PANEL BLOOD [facility] W[facility]N AM Chemistry [facility] Oct 25, 2021 12:00 Laboratory - FERRITIN BLOOD [facility] WSTR N AM Chemistry Order (SST-SERUM) [facility] Social History: Smoking Status (Most current) and Tobacco Use (All prior to encounter date) This section includes the most current, and the historical, smoking and tobacco-related health factors from the [place] facility where the Encounter took place.Current Smoking Status This section includes the most current smoking, or tobacco-related health factor, from the [place] facility where the Encounter took place. Date/Time Current Smoking Status Comment Facility May 09, 2020 01:30 PM VA-TOBACCO NEVER USED [facility] [place] [facility] Tobacco Use History This section includes a history of the smoking, or tobacco- related health factors, that were collected on or before the date of the Encounter. The data comes from the [place] facility where the Encounter took place. Date/Time Smoking Status/Tobacco Use Comment [facility] Feb 11, 2020 03:54 PM VA-TOBACCO NEVER USED VA C NTRL [facility] [place] [facility] Feb 05, 2019 08:10 AM VA-TOBACCO FORMER USER [facility] [place] [facility] Feb 05, 2019 08:10 AM VA-TOBACCO QUIT 15 YRS OR [facility] [place] MORE [facility] Apr 14, 2017 02:07 PM QUIT TOBACCO USE > 7 YEARS [facility] [place] AGO [facility] Jan 05, 2016 02:32 PM LIFETIME NON-TOBACCO USER [facility] [place] [facility] Nov 29, 2009 09:18 AM LIFETIME NON-TOBACCO USER [facility] [place] [facility] Advance Directives: All historical and current Section Date Range: From patient's date of to the date document was created. This section includes ALL of a patient's completed or amended [place] Advance and Rescinded Directives. The entries below indicate that a directive exists for the patient, but an actual copy is not included with this document. The data comes from all [place] facilities. Date Advance Directives Provider Source Nov 13, 2017 ADVANCE DIRECTIVE MUSA STRINGER [facility] [place] [facility] Nov 12, 2017 GOALS & PREFERENCES TO MUSA STRINGER VA C N[facility]L [facility] INFORM LIFE-SUSTAINING [place] [facility] TREATMENT PLAN Encounter Notes: All associated encounter notes This section contains the clinical notes associated to the Encounter. Date/Time Encounter Note(s) Provider Source Oct 24, 2021 12:00 AM NONVA DIAGNOSTIC STUDY REPORT: [facility] LOCAL TITLE: NON-VA DIAGNOSTICS [place] [facility] STANDARD TITLE: NONVA DIAGNOSTIC STUDY REPORT DATE OF NOTE: OCT 24, 2021 ENTRY DATE: NOV 14 022@12:01:30 AUTHOR: LAZ NOYOLA EXP COSIGNER: URGENCY: STATUS: COMPLETED VistA Imaging - Scanned Document SCANNED DOCUMENT SIGNATURE NOT REQUIRED Electronically Filed: 11/14/2021 by: LAZ NOYOLA SAFETY ADMINISTRATOR
--- OUTSIDE RECORDS SUMMARY | 2022-06-03 16:02 | XMS_ITS ---
:1945 Author Organization Department of [facility] rs Address [address] [place] [address] Support Name Relationship Address Phone ROLANDO LAWLER Unavailable [address] [facility] LO[address] [phone] [place] [address] KELSEY HAILE Unavailable [address] [place] [address] Insurance Providers: All historical and current Section [...] MEDICARE MEDICARE PART Apr 25, PART A [id number] [id number] LANGLA ND PATIENT (WNR) (M) A 2010 RENEE AVALOS MEDICARE MEDICARE PART Apr 25, PART B [id number] [id number] LANGLA ND PATIENT (WNR) (M) B 2010 RENEE AVALOS MEDICARE MEDICARE PART Apr 25, PART A [id number] BRAEDENLA ND PATIENT (WNR) (M) A 2010 RENEE AVALOS MEDICARE MEDICARE PART Apr 25, PART B [id number] BRAEDENLA ND PATIENT (WNR) (M) B 2010 RENEE AVALOS Selected Encounter This section includes the information on record at [place] for the Encounter. Date/Time Encounter Type Encounter Description Reason Provider Source Dec 28, 2021 12:00 Outpatient Encounter EVENT (HISTORICAL) AM IHE Encounter Template Text not used by VA Plan of Treatment: Future Appointments (+ 6 months) and Future Tests (+/- 45 days) The Plan of Treatment section includes future care activities for the patient from all [place] [facility]. This section includes future appointments and future orders which are active, pending orscheduled.Future Appointments This section includes appointments that were scheduled to occur 6 months from the date of the Encounter, up to a maximum of 20 appointments. The data comes from all [facility] facilities. Appointment Date/Time Appointment Type Appointment Facili ty Name May 01, 2022 10:00 AM [facility] May 16, 2022 09:00 AM [facility] [facility] May 16, 2022 10:00 AM AMBULATORY - REHAB MEDICINE [facility] [place] [facility] Jun 18, 2022 11:30 AM AMBULATORY - REHAB MEDICINE [facility] [place] [facility] Jun 25, 2022 11:30 AM AMBULATORY - REHAB MEDICINE [facility] [place] [facility] Active, Pending, and Scheduled Orders This section includes a listing of several types of active, pending, and scheduled orders, including clinic medications orders, diagnostic test orders, procedure orders and consult orders; where the start date of the order is 45 days before the date of the Encounter or 45 days after the date of the Encounter. The data comes from all [facility]. Test Date/Time Test Type Test Details Facility Name Jan 30, 2022 12:00 Laboratory - MAGNESIUM BLOOD [facility] N AM Chemistry Order (SST-SERUM) [facility] Jan 30, 2022 12:00 Laboratory - CALCIUM BLOOD [facility] N AM Chemistry Order (SST-SERUM) [place] [facility] Jan 30, 2022 12:00 Laboratory - MICROALBUMIN CREATININE [facility] W[facility]N AM Chemistry Order RATIO PANEL [facility] ([facility] Jan 30, 2022 12:00 Laboratory - BASIC METABOLIC PANEL [facility] AM Chemistry Order (non-fasting) [facility] (SST-[facility]ERUM) Jan 30, 2022 12:00 Laboratory - LIPID PANEL FASTING [facility] AM Chemistry Order BLOOD (SST-SERUM) [facility] Jan 30, 2022 12:00 Laboratory - CBC BLOOD (LAV-BLOOD) [facility] AM Chemistry Order [place] [facility] Jan 30, 2022 12:00 Laboratory - IRON & TIBC PANEL BLOOD [facility] CN TRL WSTRN AM Chemistry Order (SST-SERUM) SP [place] [facility] Jan 30, 2022 12:00 Laboratory - FERRITIN BLOOD [facility]L WSTR N AM Chemistry Order (SST-SERUM) [facility] Social History: Smoking Status (Most current) and [...] took place. Date/Time Smoking Status/Tobacco Use Comment [facility] Feb 11, 2020 03:54 PM VA-TOBACCO NEVER USED VA C NTRL [facility] [place] [facility] Feb 05, 2019 08:10 AM VA-TOBACCO FORMER USER [facility] [place] [facility] Feb 05, 2019 08:10 AM VA-TOBACCO QUIT 15 YRS OR [facility] [place] MORE [facility] Apr 14, 2017 02:07 PM QUIT TOBACCO USE > 7 YEARS [facility] [place] [facility] Jan 05, 2016 02:32 PM LIFETIME NON-TOBACCO USER [facility] [place] [facility] Nov 29, 2009 09:18 AM LIFETIME NON-TOBACCO USER [facility] [place] [facility] Advance Directives: All historical and current Section Date Range: From patient's date of to the date document was created. This section includes ALL of a patient's completed or amended [place] Advance and Rescinded Directives. The entries below indicate that a directive exists for the patient, but an actual copy is not included with this document. The data comes from all [place] facilities. Date Advance Directives Provider Source Nov 13, 2017 ADVANCE DIRECTIVE MUSA STRINGER [place] [facility] [place] [facility] Nov 12, 2017 GOALS & PREFERENCES TO JAIMEMUSA HUERTA [facility] C NTRL W[facility] INFORM LIFE-SUSTAINING [facility] T[facility] Encounter Notes: All associated encounter notes This section contains the clinical notes associated to the Encounter. Date/Time Encounter Note(s) Provider Source Dec 28, 2021 12:00 AM NONVA DIAGNOSTIC STUDY REPORT: [place] CN[facility]L [facility] LOCAL TITLE: NON-VA DIAGNOSTICS [facility] STANDARD TITLE: NONVA DIAGNOSTIC STUDY REPORT DATE OF NOTE: DEC 28, 2021 ENTRY DATE: APR 09 022@09:51:01 AUTHOR: ZIA MURILLO EXP COSIGNER: URGENCY: STATUS: COMPLETED VistA Imaging - Scanned Document SCANNED DOCUMENT SIGNATURE NOT REQUIRED Electronically Filed: 04/09/2022 by: ZIA MURILLO
--- OUTSIDE RECORDS SUMMARY | 2022-06-03 16:02 | XMS_ITS | Encounter Summary ---
:1945 Author Organization Department of [facility] rs Address [address] [place] [address] Support Name Relationship Address Phone ROLANDO LAWLER Unavailable [address] [facility] [address] [phone] [place] [address] KELSEY HAILE Unavailable [address] [place] [address] Insurance Providers: All historical and current Section [...] MEDICARE MEDICARE PART Apr 25, PART A [id number] LANGLA ND PATIENT (WNR) (M) A 2010 RENEE AVALOS MEDICARE MEDICARE PART Apr 25, PART B [id number] [id number] LANGLA ND PATIENT (WNR) (M) B 2010 RENEE AVALOS MEDICARE MEDICARE PART Apr 25, PART A [id number] BRAEDENLA ND PATIENT (WNR) (M) A 2010 RENEE AVALOS MEDICARE MEDICARE PART Apr 25, PART B [id number] BRAEDENLA ND PATIENT (WNR) (M) B 2010 RENEE AVALOS Selected Encounter This section includes the information on record at [place] for the Encounter. Date/Time Encounter Type Encounter Description Reason Provider Source Jan 30, 2022 02:18 Outpatient Encounter PRIMARY CARE/MEDICINE PM IHE Encounter Template Text not used by [place] Plan of Treatment: Future Appointments (+ 6 months) and Future Tests (+/- 45 days) The Plan of Treatment section includes future care activities for the patient from all [place] [facility]. This section includes future appointments and future orders which are active, pending orscheduled.Future Appointments This section includes appointments that were scheduled to occur 6 months from the date of the Encounter, up to a maximum of 20 appointments. The data comes from all [facility]. Appointment Date/Time Appointment Type Appointment Facili ty Name May 01, 2022 10:00 AM [facility] May 16, 2022 09:00 AM [facility] - NONE [facility] [place] [facility] May 16, 2022 10:00 AM AMBULATORY - REHAB [facility] [place] [facility] Jun 18, 2022 11:30 AM AMBULATORY - REHAB [facility] [place] [facility] Jun 25, 2022 11:30 AM AMBULATORY - REHAB [facility] [place] [facility] Jul 04, 2022 01:00 PM AMBULATORY - REHAB MEDICINE [facility]N [place] [facility] Active, Pending, and Scheduled Orders This section includes a listing of several types of active, pending, and scheduled orders, including clinic medications orders, diagnostic test orders, procedure orders and consult orders; where the start date of the order is 45 days before the date of the Encounter or 45 days after the date of the Encounter. The data comes from all [facility]. Test Date/Time Test Type Test Details Facility Name Jan 30, 2022 12:00 Laboratory - LIPID PANEL FASTING [facility] AM Chemistry Order BLOOD ([facility]SERUM[facility] Jan 30, 2022 12:00 Laboratory - MAGNESIUM BLOOD [facility] WSTR N AM Chemistry Order (SST-SERUM) SP [place] [facility] Jan 30, 2022 12:00 Laboratory - CALCIUM BLOOD [facility] WSTR N AM Chemistry Order (SST-SERUM) [facility] Jan 30, 2022 12:00 Laboratory - MICROALBUMIN CREATININE [facility] TR WSTRN AM Chemistry Order RATIO PANEL URINE [facility] S (RANDOM) Jan 30, 2022 12:00 Laboratory - BASIC METABOLIC PANEL [facility] AM Chemistry Order (non-fasting) [facility]OD [facility] (SST-SERUM) Jan 30, 2022 12:00 Laboratory - CBC BLOOD (LAV-BLOOD) [facility] AM Chemistry Order [facility] [place] [facility] Jan 30, 2022 12:00 Laboratory - IRON & TIBC PANEL BLOOD [facility] AM Chemistry Order (SST-SERUM) SP [place] [facility] Jan 30, 2022 12:00 Laboratory - FERRITIN BLOOD [facility] N AM Chemistry Order (SST-SERUM) SP [place] [facility] Mar 02, 2022 12:00 Laboratory - BASIC METABOLIC PANEL [facility] AM Chemistry Order (non-fasting) BLOOD [place] [facility] (SST-SERUM) SP Mar 02, 2022 12:00 Laboratory - CBC BLOOD (LAV-BLOOD) [facility] AM Chemistry Order SP [place] [facility] Mar 02, 2022 12:00 Laboratory - IRON & TIBC PANEL BLOOD [facility]RL W[facility]N AM Chemistry Order (SST-SERUM) SP [place] [facility] Mar 02, 2022 12:00 Laboratory - FERRITIN BLOOD [facility] N AM Chemistry Order (SST-SERUM) SP [place] [facility] Mar 02, 2022 12:00 Laboratory - RETICULOCYTES BLOOD [facility] AM Chemistry Order (LAV-BLOOD) SP [place] [facility] Mar 02, 2022 12:00 Laboratory - MICROALBUMIN CREATININE [facility] TRL W[facility]N AM Chemistry Order RATIO PANEL URINE [place] [facility] S (RANDOM) SP Social History: Smoking Status (Most current) and Tobacco Use (All prior to encounter date) This section includes the most current, and the historical, smoking and tobacco-related health factors from the [place] facility where the Encounter took place.Current Smoking Status This section includes the most current smoking, or tobacco-related health factor, from the [place] facility where the Encounter took place. Date/Time Current Smoking Status Comment Facility May 09, 2020 01:30 PM VA-TOBACCO NEVER USED [place] C NTRL [place] [facility] Tobacco Use History This section includes a history of the smoking, or tobacco- related health factors, that were collected on or before the date of the Encounter. The data comes from the [place] facility where the Encounter took place. Date/Time Smoking Status/Tobacco Use Comment [facility] Feb 11, 2020 03:54 PM VA-TOBACCO NEVER USED [facility] C [facility]L [facility] [place] [facility] Feb 05, 2019 08:10 AM VA-TOBACCO FORMER USER [facility] [place] [facility] Feb 05, 2019 08:10 AM VA-TOBACCO QUIT 15 YRS OR [facility] [place] MORE [facility] Apr 14, 2017 02:07 PM QUIT TOBACCO USE > 7 YEARS [facility] [place] [place] [facility] Jan 05, 2016 02:32 [...] this document. The data comes from all [place] facilities. Date Advance Directives Provider Source Nov 13, 2017 ADVANCE DIRECTIVE MUSA STRINGER [facility] [place] [facility] Nov 12, 2017 GOALS & PREFERENCES TO MUSA STRINGER VA C NTRL W[facility] INFORM LIFE-SUSTAINING [place] [facility] TREATMENT PLAN Encounter Notes: All associated encounter notes This section contains the clinical notes associated to the Encounter. Date/Time Encounter Note(s) Provider Source Jan 30, 2022 02:18 PRIMARY CARE TELEPHONE ENCOUNTER NOTE: GEMMA CHERRY [place] CN[facility]L WSTRN PM LOCAL TITLE: TELEPHONE NOTE/PRIMARY CARE E [place] [facility] STANDARD TITLE: PRIMARY CARE TELEPHONE ENCOUNTER NOTE DATE OF NOTE: JAN 30, 2022@14:18 ENTRY DATE: JAN 30, 2022@14:18:42 AUTHOR: GEMMA CHERRY EXP COSIGNER: URGENCY: STATUS: COMPLETED TELEPHONE NOTE/PRIMARY CARE Has ADDENDA CHUCK TITLE: ADMINISTRATIVE NOTE STANDARD TITLE: ADMINISTRATIVE NOTE DATE OF NOTE: JAN 30, 2022@14:07 ENTRY DATE: JAN 30, 2022@14:07:08 AUTHOR: PAULA BLACK EXP COSIGNER: URGENCY: STATUS: COMPLETED called into Primary Care requesting a new consult/referral for Dr. Kellogg for his knees. Please review. [place] cell phone number is reyj [email or web address] in system. /es/ PAULA QUIRINO NOGUERA Signed: 01/30/2022 14:13 Receipt Acknowledged By: * AWAITING SIGNATURE * ASHLEY ESTRADA * AWAITING SIGNATURE * GEMMA CHERRY /pat/ GEMMA CHERRY LPN Signed: 01/30/2022 14:18 Receipt Acknowledged By: 01/30/2022 15:18 /es/ Rohit Rai PA-C STAFF PHYSICIAN VEGETABLE LOADER 01/30/2022 ADDENDUM STATUS: COMPLETED Labs and xrays on March 06, when he comes for Nephrology. Rehab consult in for knee injections,hopfully on March 06 as well. Is he still in the SNF at [facility]? Please obtain one year of labs, shots and any co lonoscopy report. Book f/u with me late February or March. /pat/ Rohit Rai PA-C STAFF PHYSICIAN VEGETABLE LOADER Signed: 01/30/2022 15:18 Receipt Acknowledged By: * AWAITING SIGNATURE * GEMMA CHERRY
--- OUTSIDE RECORDS SUMMARY | 2022-06-03 16:02 | XMS_ITS ---
:1945 Author Organization Department of [facility] rs Address [address] [place] [address] Support Name Relationship Address Phone ROLANDO LAWLER Unavailable [address] [facility] [address] KELSEY HAILE Unavailable [address] [place] [address] Insurance Providers: All historical and current Section [...] MEDICARE MEDICARE PART Apr 25, PART A [id number] LANGLA ND PATIENT (WNR) (M) A 2010 RENEE AVALOS MEDICARE MEDICARE PART Apr 25, PART B [id number] LANGLA ND PATIENT (WNR) (M) B 2010 RENEE AVALOS MEDICARE MEDICARE PART Apr 25, PART A [id number] BRAEDENLA ND PATIENT (WNR) (M) A 2010 RENEE AVALOS MEDICARE MEDICARE PART Apr 25, PART B [id number] BRAEDENLA ND PATIENT (WNR) (M) B 2010 RENEE AVALOS Selected Encounter This section includes the information on record at [place] for the Encounter. Date/Time Encounter Type Encounter Description Reason Provider Source Jul 23, 2021 12:00 Outpatient Encounter EVENT (HISTORICAL) AM IHE Encounter Template Text not used by VA Plan of Treatment: Future Appointments (+ 6 months) and Future Tests (+/- 45 days) The Plan of Treatment section includes future care activities for the patient from all [place] treatmentfacilities. This section includes future appointments and future orders which are active, pending orscheduled.Future Appointments This section includes appointments that were scheduled to occur 6 months from the date of the Encounter, up to a maximum of 20 appointments. The data comes from all [place] treatment facilities. Appointment Date/Time Appointment Type Appointment Facili ty Name Jul 25, 2021 11:00 AM AMBULATORY - [place]ICINE [place] [facility] [facility] Oct 31, 2021 01:00 PM AMBULATORY - MEDICINE [facility] W[facility]N [facility] Social History: Smoking Status (Most current) and Tobacco Use (All prior to encounter date) This section includes the most current, and the historical, smoking and tobacco-related health factors from the [facility] facility where the Encounter took place.Current Smoking Status This section includes the most current smoking, or tobacco-related health factor, from the [place] facility where the Encounter took place. Date/Time Current Smoking Status Comment Facility May 09, 2020 01:30 PM VA-TOBACCO NEVER USED [facility] Tobacco Use History This section includes a history of the smoking, or tobacco- related health factors, that were collected on or before the date of the Encounter. The data comes from the VA facility where the Encounter took place. Date/Time Smoking Status/Tobacco Use Comment [facility] Feb 11, 2020 03:54 PM VA-TOBACCO NEVER USED [place] [facility] Feb 05, 2019 08:10 AM VA-TOBACCO FORMER USER [place] [facility] Feb 05, 2019 08:10 AM VA-TOBACCO QUIT 15 YRS OR [place] [facility] [place] MORE [facility] Apr 14, 2017 02:07 PM QUIT TOBACCO USE > 7 YEARS [place] AGO [facility] Jan 05, 2016 02:32 PM LIFETIME NON-TOBACCO USER [place] [facility] [place] [facility] Nov 29, 2009 09:18 AM LIFETIME NON-TOBACCO USER [place] [facility] Advance Directives: All historical and current Section Date Range: From patient's date of to the date document was created. This section includes ALL of a patient's completed or amended VA Advance and Rescinded Directives. The entries below indicate that a directive exists for the patient, but an actual copy is not included with this document. The data comes from all [place] facilities. Date Advance Directives Provider Source Nov 13, 2017 ADVANCE DIRECTIVE MUSA STRINGER [place] [facility] Nov 12, 2017 GOALS & PREFERENCES TO MUSA STRINGER [place] C NTRL [facility] INFORM LIFE-SU[facility]AINING [facility] TREATMENT PLAN Encounter Notes: All associated encounter notes This section contains the clinical notes associated to the Encounter. Date/Time Encounter Note(s) Provider Source Jul 23, 2021 12:00 AM NONVA DIAGNOSTIC STUDY REPORT: [place] CN[facility]L [place] LOCAL TITLE: NON-VA DIAGNOSTICS [facility] STANDARD TITLE: NONVA DIAGNOSTIC STUDY REPORT DATE OF NOTE: JUL 23, 2021 ENTRY DATE: AUG 16 022@12:53:09 AUTHOR: LAZ NOYOLA EXP COSIGNER: URGENCY: STATUS: COMPLETED VistA Imaging - Scanned Document SCANNED DOCUMENT SIGNATURE NOT REQUIRED Electronically Filed: 08/16/2021 by: LAZ NOYOLA AGRONOMIST
--- OUTSIDE RECORDS SUMMARY | 2022-06-03 16:02 | XMS_ITS | Encounter Summary ---
:1945 Author Organization Department of [facility] rs Address [address] [place] [address] Support Name Relationship Address Phone ROLANDO LAWLER Unavailable [address] [facility] [address] [phone] [place] [address] KELSEY HAILE Unavailable [address] [facility] [place] [address] Insurance Providers: All historical and current Section [...] MEDICARE MEDICARE PART Apr 25, PART A [id number] LANGLA ND PATIENT (WNR) (M) A 2010 RENEE AVALOS MEDICARE MEDICARE PART Apr 25, PART B [id number] LANGLA ND PATIENT (WNR) (M) B 2010 RENEE AVALOS MEDICARE MEDICARE PART Apr 25, PART B [id number] BRAEDENLA ND PATIENT (WNR) (M) B 2010 RENEE AVALOS MEDICARE MEDICARE PART Apr 25, PART A [id number] BRAEDENLA ND PATIENT (WNR) (M) A 2010 RENEE AVALOS Selected Encounter This section includes the information on record at [place] for the Encounter. Date/Time Encounter Type Encounter Description Reason Provider Source Jul 25, 2021 12:00 Outpatient Encounter EVENT (HISTORICAL) AM IHE Encounter Template Text not used by VA Plan of Treatment: Future Appointments (+ 6 months) and Future Tests (+/- 45 days) The Plan of Treatment section includes future care activities for the patient from all [place] [facility]. This section includes future appointments and future orders which are active, pending orscheduled.Future Appointments This section includes appointments that were scheduled to occur 6 months from the date of the Encounter, up to a maximum of 20 appointments. The data comes from all [place] treatment facilities. Appointment Date/Time Appointment Type Appointment Facili ty Name Oct 31, 2021 01:00 PM AMBULATORY - MEDICINE [place] [facility] Social History: Smoking Status (Most [...] NEVER USED [place] C [place] [facility] Tobacco Use History This section includes a history of the smoking, or tobacco- related health factors, that were collected on or before the date of the Encounter. The data comes from the [place] facility where the Encounter took place. Date/Time Smoking Status/Tobacco Use Comment [facility] Feb 11, 2020 03:54 PM VA-TOBACCO NEVER USED [place] C [place] [facility] Feb 05, 2019 08:10 AM VA-TOBACCO FORMER USER [place] [facility] Feb 05, 2019 08:10 AM VA-TOBACCO QUIT 15 YRS OR [place] MORE [facility] Apr 14, 2017 02:07 PM QUIT TOBACCO USE > 7 YEARS [place] [facility] Jan 05, 2016 02:32 PM LIFETIME NON-TOBACCO USER [place] [place] [facility] Nov 29, 2009 09:18 AM LIFETIME NON-TOBACCO USER [place] [facility] Advance Directives: All historical and [...] Source Nov 13, 2017 ADVANCE DIRECTIVE JAIMEMUSA MAI [place] [facility] [place] [facility] Nov 12, 2017 GOALS & PREFERENCES TO MUSA STRINGER [place] C NTRL [facility] INFORM [facility]-SUSTAINING [facility] TREATMENT [facility] Encounter Notes: All associated encounter notes This section contains the clinical notes associated to the Encounter. Date/Time Encounter Note(s) Provider Source Jul 25, 2021 12:00 AM NONVA DIAGNOSTIC STUDY REPORT: [place] [facility] LOCAL TITLE: NON-VA DIAGNOSTICS [place] [facility] STANDARD TITLE: NONVA DIAGNOSTIC STUDY REPORT DATE OF NOTE: JUL 25, 2021 ENTRY DATE: APR 09@09:59:32 AUTHOR: ZIA MURILLOIGNER: URGENCY: STATUS: COMPLETED VistA Imaging - Scanned Document SCANNED DOCUMENT SIGNATURE NOT REQUIRED Electronically Filed: 04/09/2022 by: ZIA MURILLO Jul 25, 2021 12:00 AM NONVA DIAGNOSTIC STUDY REPORT: [place] [facility] LOCAL TITLE: NON-VA DIAGNOSTICS [place] [facility] STANDARD TITLE: NONVA DIAGNOSTIC STUDY REPORT DATE OF NOTE: JUL 25, 2021 ENTRY DATE: APR 08@15:40:42 AUTHOR: ZIA MURILLOIGNER: URGENCY: STATUS: COMPLETED VistA Imaging - Scanned Document SCANNED DOCUMENT SIGNATURE NOT REQUIRED Electronically Filed: 04/08/2022 by: ZIA MURILLO
--- OUTSIDE RECORDS SUMMARY | 2022-06-03 16:02 | XMS_ITS ---
:1945 [address] [facility] Address [address] [place] [address] Support Name Relationship Address Phone ROLANDO LAWLER Unavailable [address] [facility] [address] [phone] [place] [address] KELSEY HAILE Unavailable [address] [facility] [place] [address] Insurance Providers: All historical and current Section [...] MEDICARE MEDICARE PART Apr 25, PART A [id number] LANGLA ND PATIENT (WNR) (M) A 2010 RENEE AVALOS MEDICARE MEDICARE PART Apr 25, PART B [id number] LANGLA ND PATIENT (WNR) (M) B 2010 RENEE AVALOS MEDICARE MEDICARE PART Apr 25, PART A [id number] BRAEDENLA ND PATIENT (WNR) (M) A 2010 RENEE AVALOS MEDICARE MEDICARE PART Apr 25, PART B [id number] BRAEDENLA ND PATIENT (WNR) (M) B 2010 RENEE AVALOS Selected Encounter This section includes the information on record at [place] for the Encounter. Date/Time Encounter Type Encounter Description Reason Provider Source Dec 10, 2021 01:21 Outpatient Encounter TELEPHONE/ANCILLARY PM IHE Encounter Template Text not used by VA Plan of Treatment: Future Appointments (+ 6 months) and Future Tests (+/- 45 days) The Plan of Treatment section includes future care activities for the patient from all [facility]. This section includes future appointments and future orders which are active, pending orscheduled.Future Appointments This section includes appointments that were scheduled to occur 6 months from the date of the Encounter, up to a maximum of 20 appointments. The data comes from all [place] treatment facilities. Appointment Date/Time Appointment Type Appointment Facili ty Name May 01, 2022 10:00 AM AMBULATORY - MEDICINE [place] [facility] May 16, 2022 09:00 AM AMBULATORY - NONE [place] [facility] May 16, 2022 10:00 AM AMBULATORY - REHAB MEDICINE [place] [facility] Social History: Smoking Status (Most current) and Tobacco Use (All prior to encounter date) This section includes the most current, and the historical, smoking and tobacco-related health factors from the [place] facility where the Encounter took place.Current Smoking Status This section includes the most current smoking, or tobacco-related health factor, from the [place] facility where the Encounter took place. Date/Time Current Smoking Status Comment Facility May 09, 2020 01:30 PM VA-TOBACCO NEVER USED [place] C [place] [facility] Tobacco Use History This section includes a history of the smoking, or tobacco- related health factors, that were collected on or before the date of the Encounter. The data comes from the [place] facility where the Encounter took place. Date/Time Smoking Status/Tobacco Use Comment [facility] Feb 11, 2020 03:54 PM VA-TOBACCO NEVER USED [place] C [place]TR[place] [facility] Feb 05, 2019 08:10 AM VA-TOBACCO FORMER USER [place] [facility] Feb 05, 2019 08:10 AM VA-TOBACCO QUIT 15 YRS OR [place] [facility] [place] MORE [facility] Apr 14, 2017 02:07 PM QUIT TOBACCO USE > 7 YEARS [place] [facility] Jan 05, 2016 02:32 PM LIFETIME NON-TOBACCO USER [place] [facility] [place] [facility] Nov 29, 2009 09:18 AM LIFETIME NON-TOBACCO USER [place] [facility] [place] [facility] Advance Directives: All historical and current Section Date Range: From patient's date of to the date document was created. This section includes ALL of a patient's completed or amended [place] Advance and Rescinded Directives. The entries below indicate that a directive exists for the patient, but an actual copy is not included with this document. The data comes from all [place] facilities. Date Advance Directives Provider Source Nov 13, 2017 ADVANCE DIRECTIVE MICHELLEEVARISTOMUSA L [place] [facility] Nov 12, 2017 GOALS & PREFERENCES TO ANTOINEMUSA CORREIA [place] C NTRL WSTR[place] INFORM [facility]-SU[facility] Encounter Notes: All associated encounter notes This section contains the clinical notes associated to the Encounter. Date/Time Encounter Note(s) Provider Source Dec 10, 2021 01:22 PM MOVE NOTE: LIVAN BYRD CNTRL W STRN LOCAL TITLE: WEIGHT MANAGEMENT/MOVE! [facility]PHONE [facility] T[facility]: MOVE NOTE DATE OF NOTE: DEC 10, 2021@13:22 ENTRY DATE: DEC 10, 2021@13:22:52 AUTHOR: LIVAN BYRD EXP COSIGNER: URGENCY: STATUS: COMPLETED This lead technical writer was notified that the Vetera n is interested in participating in an upcoming MOVE! group. Forensic Nurse called pt and left a voice message requesting a call back. Contact infomation provided. /pat/ ADORE Barron, RD, LDN, CNPM Registered Dietitian Signed: 12/10/2021 13:24
--- OUTSIDE RECORDS SUMMARY | 2022-06-03 16:02 | XMS_ITS | Encounter Summary ---
:1945 Author Organization Department [facility] rs Address [address] [place] [address] Support Name Relationship Address Phone ROLANDO LAWLER Unavailable [address] [facility] [facility] [place] [address] KELSEY HAILE Unavailable [address] [facility] [place] [address] Insurance Providers: All historical and current Section [...] MEDICARE MEDICARE PART Apr 25, PART A [id number] BRAEDENLA ND PATIENT (WNR) (M) A 2010 RENEE AVALOS MEDICARE MEDICARE PART Apr 25, PART B [id number] [id number] BRAEDENLA ND PATIENT (WNR) (M) B 2010 RENEE AVALOS MEDICARE MEDICARE PART Apr 25, PART A [id number] BRAEDENLA ND PATIENT (WNR) (M) A 2010 RENEE AVALOS MEDICARE MEDICARE PART Apr 25, PART B [id number] BRAEDENLA ND PATIENT (WNR) (M) B 2010 RENEE AVALOS Selected Encounter This section includes the information on record at [place] for the Encounter. Date/Time Encounter Type Encounter Reason Provider Source Description Oct 31, 2021 Outpatient TELEPHONE/MEDICIN ICD-10-CM I12.9 RUBINA SIMS IR 01:00 PM Encounter E Hypertensive CHAPITO A chronic kidney disease w stg 1-4/unsp chr kdny with Provider Comments: Hypertensive Chronic Kidney Disease with Stage 1 through Stage 4 Chronic Kidney Disease, or unspecified Chronic Kidney Disease IHE Encounter Template Text not used by [place] Assessments - Encounter Diagnoses This section includes the primary and secondary diagnoses documented for the Encounter. Date/Time Primary/Secondary Diagnosis Name Provider Source Diagnosis Oct 31, 2021 PRIMARY Hypertensive DAILY SIMS [facility] W[facility] 01:00 PM chronic kidney [place] [facility] disease w stg 1-4/unsp chr kdny Oct 31, 2021 SECONDARY Anemia in chronic DAILY SIMS [facility] W[facility] 01:00 PM kidney disease [place] [place] [facility] Oct 31, 2021 SECONDARY Chronic kidney [facility]00 PM disease, stage 3 [facility] [place] [facility] unspecified Oct 31, 2021 SECONDARY Hyperlipidemia, DAILY SIMS [facility] WS TRN 01:00 PM unspecified [facility] [place] [facility] Plan of Treatment: Future Appointments (+ 6 months) and Future Tests (+/- 45 days) The Plan of Treatment section includes future care activities for the patient from all [place] [facility]. This section includes future appointments and future orders which are active, pending orscheduled.Future Appointments This section includes appointments that were scheduled to occur 6 months from the date of the Encounter, up to a maximum of 20 appointments. The data comes from all [facility]. Appointment Date/Time Appointment Type Appointment Facili ty Name May 01, 2022 10:00 AM [facility] Active, Pending, and Scheduled Orders This section includes a listing of several types of active, pending, and scheduled orders, including clinic medications orders, diagnostic test orders, procedure orders and consult orders; where the start date of the order is 45 days before the date of the Encounter or 45 days after the date of the Encounter. The data comes from all [place] treatment facilities. Test Date/Time Test Type Test Details Facility Name Oct 25, 2021 12:00 Laboratory - [facility]UM[facility] Oct 25, 2021 12:00 [facility] - LIPID PANEL [facility] Chemistry Order BLOOD (SST-SERUM) [facility] Oct 25, 2021 12:00 Laboratory - CALCIUM BLOOD [facility] AM Chemistry Order (SST-SERUM) [facility] [place] [facility] Oct 25, 2021 12:00 Laboratory - MICROALBUMIN CREATININE [facility] AM Chemistry Order RATIO PANEL URINE [place] [facility] (RANDOM) SP Oct 25, 2021 12:00 Laboratory - BASIC METABOLIC PANEL [facility] L [facility] AM Chemistry Order (non-fasting) BLOOD [place] [facility] (SST-SERUM) SP Oct 25, 2021 12:00 Laboratory - CBC BLOOD (LAV-BLOOD) [facility] AM Chemistry Order [facility] [place] [facility] Oct 25, 2021 12:00 Laboratory - IRON & TIBC PANEL BLOOD [facility] AM Chemistry Order (SST-SERUM) [facility] [place] [facility] Oct 25, 2021 12:00 Laboratory - FERRITIN BLOOD [facility] AM Chemistry Order (SST-SERUM) [facility] [place] [facility] Social History: Smoking Status (Most current) and Tobacco Use (All prior to encounter date) This section includes the most current, and the historical, smoking and tobacco-related health factors from the [place] facility where the Encounter took place.Current Smoking Status This section includes the most current smoking, or tobacco-related health factor, from the [place] facility where the Encounter took place. Date/Time Current Smoking Status Comment Facility May 09, 2020 01:30 PM VA-TOBACCO NEVER USED VA C NTRL [place] [facility] Tobacco Use History This section includes a history of the smoking, or tobacco- related health factors, that were collected on or before the date of the Encounter. The data comes from the [place] facility where the Encounter took place. Date/Time Smoking Status/Tobacco Use Comment [facility] Feb 11, 2020 03:54 PM VA-TOBACCO NEVER USED VA C NTRL WSTRN [place] [facility] Feb 05, 2019 [...] 29, 2009 09:18 AM LIFETIME NON-TOBACCO USER [place] [facility] Advance Directives: All historical and current Section Date Range: From patient's date of to the date document was created. This section includes ALL of a patient's completed or amended [place] Advance and Rescinded Directives. The entries below indicate that a directive exists for the patient, but an actual copy is not included with this document. The data comes from all [place] facilities. Date Advance Directives Provider Source Nov 13, 2017 ADVANCE DIRECTIVE MICHELLEGAKAYLYN ValentinMUSA L [place] CN[place] [facility] Nov 12, 2017 GOALS & PREFERENCES TO KAYLYN STRINGERLAMINE Ingram [place] C NTRL WSTR[place] INFORM LIFE-SUSTAINING [facility] Encounter Notes: All associated encounter notes This section contains the clinical notes associated to the Encounter. Date/Time Encounter Note(s) Provider Source Oct 31, 2021 07:46 NEPHROLOGY E & M NOTE: ANANDA SIMS [place] CN[facility] LOCAL TITLE: NEPHROLOGY NOTE [facility] STANDARD TITLE: NEPHROLOGY E & M NOTE DATE OF NOTE: OCT 31, 2021@07:46 ENTRY DATE: OCT 31, 2021@07:46:18 AUTHOR: ANANDA SIMS EXP COSIGNER: URGENCY: STATUS: [...] new problems. The patient is back at [facility]. He states he is doing quite well. He denies any problems with his present medical regimen. He says he has a good appetite and they feed him well. He states that is why he is gaining weight. Medications: Active and Recently Outpatient Medicatio ns [...] Non-VA VITAMIN D3 (CHOLECALCIFEROL) TAB BY M OUT ACTIVE DAILY 15) Non-VA VITAMIN E CAP,ORAL BY MOUTH DAILY ACT ERIKA Assessment and Plans: Other Areas to address in e evaluation and management of the patient's CKD and to reduce renal disease progression is as follow s: #1, CKD stage 3: The patient is without uremic s x. The patient has lab reports from the [facility] October 24, 2021. It showed a normal bicarb (24), potassium(4.4). His GFR was 38 with a crea tinine of 1.7. His renal function is stable. No med changes. #2. Hypertension:The patient's blood pressure wa s 109/55 p=73. Will recommend that the patient continue to limit salt in his d iet, exercise and continue to take his BP meds as prescribed. #3. Hyperlipidemia: the patient lipid studies [facility] October 24 showed a normal cholesterol of 154, LDL;of 103 anf HDL of 40. He is presently on fish oil but not statin. 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 The patient [...] patient weight was 367 is no w 372!!!!!. He is encouraged to exercise, limit his [...] or non-VA provider. /pat/ ANANDA SIMS M.D. DEPLOYMENT SPECIALIST [employer] PROCESSOR Signed: 10/31/2021 14:24
[2022-06-03 16:03] LABS: SLIDE REVIEW VERIFIED
[2022-06-03] MEDS: 0.9 % Sodium Chloride 2,000 ML 999 ML IVCONT (16:03)
--- OUTSIDE RECORDS SUMMARY | 2022-06-03 16:03 | XMS_ITS ---
:1945 Author Organization Department of [facility] rs Address [address] [place] [address] Support Name Relationship Address Phone ROLANDO LAWLER Unavailable [address] [place] [address] KELSEY HAILE Unavailable [address] [facility] [address] Insurance Providers: All historical and current Section [...] MEDICARE MEDICARE PART Apr 25, PART A [id number] [id number] LANGLA ND PATIENT (WNR) (M) A 2010 RENEE AVALOS MEDICARE MEDICARE PART Apr 25, PART B [id number] [phone] LANGLA ND PATIENT (WNR) (M) B 2010 RENEE AVALOS MEDICARE MEDICARE PART Apr 25, PART A [id number] BRAEDENLA ND PATIENT (WNR) (M) A 2010 RENEE AVALOS MEDICARE MEDICARE PART Apr 25, PART B [id number] LANGLA ND PATIENT (WNR) (M) B 2010 RENEE AVALOS Selected Encounter This section includes the information on record at [place] for the Encounter. Date/Time Encounter Type Encounter Description Reason Provider Source Jul 03, 2021 12:00 Outpatient Encounter EVENT (HISTORICAL) AM [...] 25, 2021 11:00 AM AMBULATORY - MEDICINE [place] [facility] [place] [facility] Oct 31, 2021 01:00 PM AMBULATORY - MEDICINE [facility] Social History: Smoking Status (Most current) and [...] 09, 2020 01:30 PM VA-TOBACCO [facility] USED [facility] Tobacco Use History This section includes a history of the smoking, or tobacco- related health factors, that were collected on or before the date of the Encounter. The data comes from the [facility] facility where the Encounter took place. Date/Time Smoking Status/Tobacco Use Comment [facility] Feb 11, 2020 03:54 PM VA-TOBACCO NEVER USED [place] [facility] Feb 05, 2019 08:10 AM VA-TOBACCO FORMER USER [place] [facility] [facility] Feb 05, 2019 08:10 AM VA-TOBACCO QUIT 15 YRS OR [facility] [place] MORE [facility] Apr 14, 2017 02:07 PM QUIT TOBACCO USE > 7 YEARS [place] [facility] Jan 05, 2016 02:32 PM LIFETIME NON-TOBACCO USER [place] [facility] [place] [facility] Nov 29, 2009 09:18 AM LIFETIME NON-TOBACCO USER [place] [facility] [facility] Advance Directives: All historical and current [...] Nov 13, 2017 ADVANCE DIRECTIVE MUSA STRINGER [place] [facility] [facility] Nov 12, 2017 GOALS & PREFERENCES TO MUSA STRINGER [place] C NTRL W[facility] INFORM [facility] Encounter Notes: All associated encounter notes This section contains the clinical notes associated to the Encounter. Date/Time Encounter Note(s) Provider Source Jul 03, 2021 12:00 AM NONVA DIAGNOSTIC STUDY REPORT: [place] [facility]L [facility] LOCAL TITLE: NON-[facility]NOST[facility] T[facility]: NONVA DIAGNOSTIC STUDY REPORT DATE OF NOTE: JUL 03, 2021 ENTRY DATE: APR 09 022@09:53:16 AUTHOR: ZIA MURILLO EXP COSIGNER: URGENCY: STATUS: COMPLETED VistA Imaging - Scanned Document SCANNED DOCUMENT SIGNATURE NOT REQUIRED Electronically Filed: 04/09/2022 by: ZIA MURILLO
[2022-06-03 16:14] LABS: IDNOW Serial# BCCEAD1C; Influenza A Negative (Negative); Influenza B2 Negative (Negative)
[2022-06-03 16:15] LABS: COVID-19 Test Negative (Negative); IDNOW Serial# 16C4AD1C
--- NOTE | 2022-06-03 16:50 | PC.NURSE ---
additional 18G IV in place, 2L IV fluids infusng at this time
[2022-06-03] MEDS: Piperacillin Sodium/Tazobactam 3.375 GM in 0.9 % Sodium Chloride 50 ML IV (16:56)
[2022-06-03 16:58] LABS: Lipase 11 U/L (8-78); Magnesium 1.9 mg/dL (1.6-2.6)
[2022-06-03 17:14] LABS: Thyroid Stimulating Hormone 1.05 uIU/mL (0.32-4.0)
[2022-06-03] MEDS: 0.9 % Sodium Chloride 1,000 ML 999 ML IVCONT (17:27)
[2022-06-03 19:21] LABS: Appearance Urine Clear; Color Urine Yellow; Glucose Urine UA Negative (Negative); Leukocyte Esterase Urine Negative (Negative); Nitrite Urine Negative (Negative); Specific Gravity - Urine 1.015 (1.005-1.025); Urine Blood Negative (Negative); Urine Ketones Negative (Negative); Urine Protein Negative (Neg-Trace)
--- NOTE | 2022-06-03 19:47 | PC.NURSE ---
Assumed care of pt. at 1900. Pt. resting in bed at this time. Pt. requested fluids. Provided with water. Obtained urine sample and sent to the lab. At this time we are pending the results for duplex of legs.
[2022-06-03] MEDS: Apixaban 5 MG TABLET 10 MG PO (21:02)
--- NOTE | 2022-06-03 23:23 | MHC.EDTECH ---
pt vitals were taken and he used the urinal and also gave him a turkey sandwich with a diet gingerale
--- NOTE | 2022-06-03 23:31 | P.HPHOSP_ITS ---
History of Present Illness Date of Service: 06/03/22 Chief Complaint: leg pain 87-year-old [facility] resident with a past medical history of B-cell lymphoma, chronic AFib, COPD, stage III CKD, osteoarthritis, presents the hospital with complaints of lower extremity pain. There was also report the patient may have been confused at assisted. Patient reports that he has noticed increased pain in his leg worse on the right for the past 2 days. he reports no change in the swelling but noticed redness in his right leg. He reports wheezing, denies any chest pain, no cough, no increased sputum productio n. Reports no abdominal pain, no nausea or vomiting, no diarrhea constipation, no urinary symptoms and no weakness numbness or tingling. On arrival to the ED patient hemodynamically stable with no significant abnormal vitals Labs are significant for WBC count of 29.7, hemoglobin of 12.7, hematocrit 39.8, creatinine of 2.33 with a baseline of around 1.4, troponin of 39.9, BNP of 147, urine negative, serology negative. Chest x-ray shows no acute pulmonary disease Venous duplex of the lower extremity shows positive left lower extremity DVT involving the common femoral and superficial femoral and popliteal veins. Review of Systems Review of Systems: Yes all other systems are reviewed and are negative [facility] Medical History Anemia, unspecified B-cell lymphoma Chronic a-fib COPD (chronic obstructive pulmonary disease) Dermatitis Edema Hammer toes of both feet Hearing loss Impaired fasting glucose Mild cognitive impairment Morbid obesity Nail dystrophy Osteoarthritis Pain in right shoulder Stage 3 chronic kidney disease Unspecified atherosclerosis of [place]yt[place] arteries of extremities, bilateral legs Family History Other No family history of coronary artery disease Surgical History No pertinent past surgical history Social History Alcohol intake: never Patient Tobacco Use Status: Former Tobacco user Tobacco use type: Cigarette Advance Directives: Yes Advance Directives on File: Yes Advance Directives Date on File: 02/11/22 service: Yes Current occupational status: retired Meds Allergies Allergy/AdvReac Type Severity Reaction Status Date / Time cephalexin [From KEFLEX] Allergy Unknown UNKNOWN Verified 02/11/22 16:32 meropenem [MEROPENEM] Allergy Unknown UNKNOWN Verified 05/24/20 03:36 Penicillins [PENICILLINS] Allergy Unknown UNKNOWN Verified 05/24/20 03:36 sulfamethoxazole Allergy Unknown UNKNOWN Verified 06/04/22 01:15 [From BACTRIM] trimethoprim [From BACTRIM] Allergy Unknown UNKNOWN Verified 05/24/20 03:36 Active Medications: Current Medications Apixaban (Apixaban 5 Mg Tablet) 10 mg PO BID DANISHA Stop: 06/10/22 21:01 Albuterol Sulfate 2.5 mg/ (Ipratropium Colver 0.5 mg) 0 mg INHALE RQ4H WHILE AWAKE [facility] Albuterol Sulfate 2.5 mg/ (Ipratropium Colver 0.5 mg) 0 mg INHALE Q2H PRN PRN Reason: shortness of breath/wheezing Cefazolin Sodium/Dextrose (Ancef) 2 gm in 50 mls @ 100 mls/hr IV Q12H [facility] Home Medications Medication Instructions Recorded Confirmed Last Taken Type Lactobacillus acidoph-L.bulgaricus 1 tab PO DAILY@59902/11/22 06/03/22 06/03/22 History 1 million cell tablet (Floranex) acetaminophen 325 mg tablet 650 mg PO BEDTIME 02/11/22 06/03/22 06/02/22 History acetaminophen 325 mg tablet 650 mg PO Q6H PRN Pain, Mild (Pain 02/11/22 06/03/22 06/03/22 History Scale 1-3)/FEVER aloe vera 5,000 mg capsule 20,000 mg PO DAILY@59902/11/22 06/03/22 06/03/22 History ascorbic acid (vitamin C) 250 mg 250 mg PO DAILY@59902/11/22 06/03/22 06/03/22 History tablet (Vitamin C) aspirin 81 mg tablet,delayed 81 mg PO DAILY@59902/11/22 06/03/22 06/03/22 History release coenzyme Q10 200 mg capsule 200 mg PO DAILY@59902/11/22 06/03/22 06/03/22 History dextromethorphan-guaifenesin 10 10 ml PO QID PRN Cough 02/11/22 06/03/22 Unknown History mg-100 mg/5 mL oral syrup omega 2-tsa-yts-fish oil 1,200 mg 2 cap PO DAILY@0600 02/11/22 06/03/22 06/03/22 History (144 mg-216 mg) capsule (Fish Oil) psyllium husk 3.4 gram/5.4 gram 1 tbsp PO DAILY PRN Constipation 02/11/22 06/03/22 Unknown History oral powder (Metamucil) vitamin E (dl, acetate) 180 mg 180 mg PO DAILY@0600 02/11/22 06/03/22 06/03/22 History (400 unit) capsule Nature Fruits Cap 1 cap PO TID@0600,1300,1700 06/03/22 06/03/22 06/03/22 History Veggie Capsule 1 cap PO TID 06/03/22 06/03/22 06/03/22 History Vital Protein Collagen Peptide 2 ea PO DAILY 06/03/22 06/03/22 06/03/22 History docusate sodium 100 mg capsule 100 mg PO DAILY PRN Constipation 06/03/22 06/03/22 Unknown History (Colace) furosemide 20 mg tablet 20 mg PO BID 06/03/22 06/03/22 06/03/22 History ipratropium 0.5 mg-albuterol 3 mg 3 ml inhalation Q4H PRN Wheezing 06/03/22 06/03/22 Unknown History (2.5 mg base)/3 mL nebulization soln levalbuterol tartrate 45 1 puff inhalation QID PRN 06/03/22 06/03/22 Unknown History mcg/actuation aerosol inhaler Shortness Of Breath nystatin 100,000 unit/gram topical 1 appl topical BID PRN Rash 06/03/22 06/03/22 Unknown History powder prednisone 20 mg tablet 20 mg PO DAILY 06/03/22 06/03/22 06/03/22 History Physical Exam Vital Signs and Narrative: Vital Signs: Last Vital Signs Temp 98.0 F 06/03/22 23:22 Pulse 75 06/03/22 23:22 Resp 17 06/03/22 23:22 BP 138/70 06/03/22 23:22 Pulse Ox 96 06/03/22 23:22 O2 Del Method 06/03/22 23:22 BMI result Body Mass Index 53.1 Const: General: cooperative and no acute distress Orientation/consciousness: patient oriented x3 Eyes: General: appearance normal, both eyes and all related structures Pupils: Equal, round and reactive pupils present Resp: Other: wheezing bilaterally Effort & Inspection: normal respiratory effort Cardio: Rate: regular rate Rhythm: regular rhythm GI: Palpation (GI): Soft to palpation Auscultation: normal bowel sounds Skin: Other: right lower extremity erythema, warmth, tenderness, edema General skin exam: no rashes or lesions noted Neuro: General: patient oriented x3 Cranial nerves: Yes Equal, round and reactive pupils present Cognition (Neuro): normal cognition Extrem: Other: bilateral lower extremities skin changes of venous insufficiency, right leg skin as above, left lower extremity tenderness on palpation 2+ pitting edema bilaterally General: Yes normal to inspection and Yes no pedal edema Results Labs 06/03/22 15:28 06/03/22 15:28 Labs: Laboratory Results - last 24 hr 06/03/22 06/03/22 06/03/22 15:28 15:28 15:28 MCV 86.3 MCH 27.5 MCHC 31.9 RDW 15.9 Plt Count 133 L MPV 9.3 L Immature Gran % (Auto) 1.6 H Neut % (Auto) 91.4 H Lymph % (Auto) 1.4 L [place] % (Auto) 5.3 Eos % (Auto) 0.1 Baso % (Auto) 0.2 Lymph # (Auto) 0.4 L [place] # (Auto) 1.6 H Eos # (Auto) 0.0 Baso # (Auto) 0.1 Abs Immat Gran (auto) 0.49 H Absolute Neuts (auto) 27.2 H Absolute Nucleated RBC 0.000 Nucleated RBC % (auto) 0.0 Smear Tech's Comments VERIFIED PT INR Anion Gap 16 Estim Creat Clear Calc 43.6 Estimated GFR 27 Random Glucose 203 H Fasting Glucose 205 H Lactic Acid 1.8 Calcium 8.6 Magnesium 1.9 Total Bilirubin 1.0 Direct Bilirubin 0.3 AST 19 ALT 24 Alkaline Phosphatase 46 Troponin I High Sens B-Natriuretic Peptide Total Protein 5.2 L Albumin 3.4 L Lipase 11 TSH 1.05 Urine Color Urine Appearance Urine pH Ur Specific [place] Urine Protein Urine Glucose (UA) Urine Ketones Urine Blood Urine Nitrite Ur Leukocyte Esterase COVID-19 (FAY) COVID-19 Clin Com Influenza Type A (MELYSSA) Influenza Type B (MELYSSA) Influenza A & B Note 06/03/22 06/03/22 06/03/22 15:28 15:28 15:32 MCV MCH MCHC RDW Plt Count MPV Immature Gran % (Auto) Neut % (Auto) Lymph % (Auto) [place] % (Auto) Eos % (Auto) Baso % (Auto) Lymph # (Auto) [place] # (Auto) Eos # (Auto) Baso # (Auto) Abs Immat Gran (auto) Absolute Neuts (auto) Absolute Nucleated RBC Nucleated RBC % (auto) Smear Tech's Comments PT 12.2 INR 1.1 Anion Gap Estim Creat Clear Calc Estimated GFR Random Glucose Fasting Glucose Lactic Acid Calcium Magnesium Total Bilirubin Direct Bilirubin AST ALT Alkaline Phosphatase Troponin I High Sens 39.9 H B-Natriuretic Peptide 147 H Total Protein Albumin Lipase TSH Urine Color Urine Appearance Urine pH Ur Specific [place] Urine Protein Urine Glucose (UA) Urine Ketones Urine Blood Urine Nitrite Ur Leukocyte Esterase COVID-19 (FAY) COVID-19 Clin Com Influenza Type A (MELYSSA) Influenza Type B (MELYSSA) Influenza A & B Note 06/03/22 06/03/22 06/03/22 15:40 15:40 19:09 MCV MCH MCHC RDW Plt Count MPV Immature Gran % (Auto) Neut % (Auto) Lymph % (Auto) [place] % (Auto) Eos % (Auto) Baso % (Auto) Lymph # (Auto) [place] # (Auto) Eos # (Auto) Baso # (Auto) Abs Immat Gran (auto) Absolute Neuts (auto) Absolute Nucleated RBC Nucleated RBC % (auto) Smear Tech's Comments PT INR Anion Gap Estim Creat Clear Calc Estimated GFR Random Glucose Fasting Glucose Lactic Acid Calcium Magnesium Total Bilirubin Direct Bilirubin AST ALT Alkaline Phosphatase Troponin I High Sens B-Natriuretic Peptide Total Protein Albumin Lipase TSH Urine Color Yellow Urine Appearance Clear Urine pH 6.0 Ur Specific [place] 1.015 Urine Protein Negative Urine Glucose (UA) Negative Urine Ketones Negative Urine Blood Negative Urine Nitrite Negative Ur Leukocyte Esterase Negative COVID-19 (FAY) Negative COVID-19 Clin Com See Note Influenza Type A (MELYSSA) Negative Influenza Type B (MELYSSA) Negative Influenza A & B Note See Note Imaging Radiologist's Impressions: Impressions Chest X-Ray 06/03/22 16:05 IMPRESSION: No acute pulmonary disease compared to 02/11/2022. Venous Duplex 06/03/22 18:15 IMPRESSION: 1. Exam positive for left lower extremity DVT involving the common femoral, superficial femoral and popliteal veins. 2. No right lower extremity DVT. 3. Bilateral popliteal cysts. This critical result was discussed with Dr. Luci Davila at 7:13 PM on 06/03/2022 and it was ascertained that the content and urgency of the report was understood at the time of direct communication. Assessment and Plan (1) Cellulitis of leg: Status: Acute (2) Acute kidney injury superimposed on CKD: Status: Acute (3) DVT, lower extremity: Status: Acute (4) COPD exacerbation: Status: Acute Plan 77-year-old male with past medical history of COPD, history of CKD stage 3 presents the hospital and found to have lower extremity cellulitis as well as DVT # DVT of left lower extremity - likely provoked in the setting of minimal movement and mostly bedbound - will treat with p.o. anticoagulation - will obtain nuclear medicine V/Q scan in a.m. to rule out PE, although less likely patient, has no tachycardia, no tachypnea, and no hypoxia - monitor respiratory status # cellulitis of right lower extremity - has leukocytosis, no lactic acidosis - afebrile - Will treat with IV antibiotics, follow cultures # DAREK on CKD - likely dehydration - improved with IV fluids received in the ED - will continue IV hydration - follow BMP # COPD exacerbation - patient was being treated for COPD exacerbation at the assisted with cough suppressant, prednisone, and breathing treatments - patient continues to have wheezing - will treat with IV Solu-Medrol, DuoNeb p.r.n. as well as scheduled - monitor respiratory status # history of underlying CHF with preserved ejection fraction - does not appear to be in exacerbation - continue furosemide - monitor BMP # Documented history of chronic AFib- - does not appear to be on anticoagulation prior to today per his med rec - will treat with anticoagulation port above DVT - continue metoprolol DVT prophylaxis: Eliquis given patient's multiple acute medical issues including DAREK requiring IV fluids, COPD exacerbation, cellulitis requiring IV antibiotics as well as DVT of lower extremity patient required [facility] inpatient hospital stay for further management and monitoring as well as further workup Time Spent With Patient Time: Total time managing care of this patient today ____ minutes. Quality Stroke Does the patient have a stroke diagnosis?: No VTE Prior VTE?: No VTE Risk Level:: Medical - moderate - high VTE Device Contraindication: Treatment Not Indicated VTE Drug Contraindication: N/A - Med Ordered
--- OUTSIDE RECORDS SUMMARY | 2022-06-03 23:35 | XMS_ITS | Continuity of Care Document ---
:[address] [facility] Care Team Providers Name Role Phone [facility] Unavailable Unavailable Problems Combined list of problems from Department of Defense and Veterans Affairs facilities. It does not include entries that were removed or entered in error. 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 11/29/ [facility] Q10 CAP/TAB ,JULIANNE 2009 CNTRL [...] atus Comments Source Given By Number Code Legal Collector INFLUENZA, complet [place] UNSPECIFIED 2019 ed HO [...] Number For Provider Date Date Visit Outpatient [id number] 01/01 [facility] Encounter [id number] [facility] [place] [facility] [facility] [id number] 01/01 [facility] Encounter [id number] [facility] [place] [facility] [facility] [id number] 03/06 [facility] Encounter [id number] [facility] [place] [facility] [facility] [id number] 03/15 [facility] Encounter [id number] [facility] [place] [facility] [facility] [id number] Diagnos Barbie SIMS 03/21 [facility] Encounter [id number] is: EZEQUIEL A /2020 CN TRL ICD-10- [facility] CM [place] I12.9 [facility] nsive chronic kidney disease w stg 1-4/uns p chr kdny
with Provide r Comment s: Hyperte nsive Chronic Kidney Disease with Stage 1 through Stage 4 Chronic Kidney Disease , or unspeci fied Chronic Kidney Disease Outpatient [id number] 07/03 [facility] Encounter [id number] [facility] [place] [facility] [facility] [id number] 07/23 [facility] Encounter [id number] [facility] [place] [facility] [facility] [id number] 07/25 [facility] Encounter [id number] [facility] [place] [facility] [facility] [id number] Diagnos BETHANY,S 07/25 [facility] Encounter [id number] is: EZEQUIEL CN TRL ICD-10- [facility] CM [place] I12.9 [facility] nsive chronic kidney disease w stg 1-4/uns p chr kdny
with Provide r Comment s: Hyperte nsive Chronic Kidney Disease with Stage 1 through Stage 4 Chronic Kidney Disease , or unspeci fied Chronic Kidney Disease Outpatient [id number] 10/24 [facility] Encounter [id number] [facility] [place] [facility] [facility] [id number] Diagnos Barbie SIMS 10/31 VA Encounter [id number] is: EZEQUIEL CN TRL ICD-10- [facility] CM [place] I12.9 [facility] nsive chronic kidney disease w stg 1-4/uns p chr kdny
with Provide r Comment s: Hyperte nsive Chronic Kidney Disease with Stage 1 through Stage 4 Chronic Kidney Disease , or unspeci fied Chronic Kidney Disease Outpatient [id number] 12/10 [facility] Encounter [id number] [facility] [place] [facility] [facility] [id number] 12/28 [facility] Encounter [id number] /2022 [facility] [place] [facility] [facility] [id number] 01/14 [facility] Encounter [id number] [facility] [place] [facility] [facility] [id number] 01/30 [facility] Encounter [id number] /2022 [facility] [place] [facility] [facility] [id number] 01/30 [facility] Encounter [id number] /2022 [facility] [place] [facility] [facility] [id number] 01/30 [facility] Encounter 1. [facility] [place] [facility] Outpatient [id number] 01/31 [facility] Encounter 1. [facility] [place] [facility] [facility] [id number] 02/11 [facility] Encounter [id number] /2022 [facility] [place] [facility] [facility] [id number] 02/15 [facility] Encounter [id number] /2022 [facility] [place] [facility] [facility] [id number] 02/19 [facility] Encounter [id number] [facility] [facility] Outpatient [id number] 03/20 [facility] Encounter [id number] /2022 [facility] [place] [facility] Outpatient [id number] 04/22 [facility] Encounter 1. [facility] [place] [facility] Outpatient [id number] 04/22 [facility] Encounter 1. [facility] [place] [facility] Outpatient [id number] 04/22 [facility] Encounter 1. [facility] [place] [facility] Outpatient [id number] 04/22 [facility] Encounter [id number] /2022 [facility] [place] [facility] PRO [id number] Diagnos Nataly ESTRADA 04/22 V A PHONE CALL [id number] is: SURJIT M CN TRL 11-20 MIN ICD-10- [facility] CM [place] Z76.89 SETS Persons [facility] health service s in oth circums tances< br/>wit h Provide r Comment s: Health Service s in Other Specifi ed Circums tances Outpatient [id number] 04/24 [facility] Encounter [id number] [facility] [place] [facility] Outpatient [id number] 04/28 [facility] Encounter [id number] /2022 [facility] [place] [facility] Outpatient [id number] 04/30 [facility] Encounter [id number] /2022 [facility] [place] [facility] [facility] OFF[place] O/P [id number] Diagnos SIMS,S 05/01 VA EST MOD [id number] is: EZEQUIEL A CNTR L 30-39 MIN ICD-10- [facility] CM [place] I12.9 [facility] nsive chronic kidney disease w stg 1-4/uns p chr kdny
with Provide r Comment s: Hyperte nsive Chronic Kidney Disease with Stage 1 through Stage 4 Chronic Kidney Disease , or unspeci fied Chronic Kidney Disease Outpatient [id number] 05/01 [facility] Encounter [id number] [facility] [place] [facility] [facility] HC PRO [id number] Diagnos ZULUAGA, 05/01 V A PHONE CALL [id number] is: [place] CNT RL 11-20 MIN ICD-10- [facility] CM [place] Z71.9 SET[facility] ing, unspeci fied
with Provide r Comment s: [facility] ing, unspeci fied Outpatient [id number] 05/09 [facility] Encounter [id number] /2022 [facility] [place] [facility] [facility] OFF[place] O[place]P [id number] Diagnos KLEIN,D 05/16 VA EST MOD [id number] is: KISHAN L CNTRL 30-39 MIN ICD-10- [facility] CM [place] M17.0 [facility]S [facility] al primary osteoar thritis of knee
with Provide r Comment s: [facility] [place] [id number] Diagnos TEP,SOPHOU 05/17 [facility] DIG [id number] is: S RILEY CNTRL ASSMT&MGMT ICD-10- [facility] 11-20 CM [place] M17.9 [facility] thritis of knee, unspeci fied
with Provide r Comment s: Osteoar thritis of knee, unspeci fied Social History Combined list of available smoking, tobacco, and other social history from [facility] facilities. Social History Type Response Date Comment Source Tobacco smoking VA-TOBACCO NEVER USED 05/09/2020 [facility] status [facility] [place] [facility] History of tobacco VA-TOBACCO NEVER USED 02/11/2020 [facility] use [facility] WSTRN use YRS OR MORE [facility] History of tobacco QUIT TOBACCO USE > 7 04/14/2017 [facility] use YEARS AGO [facility] History of tobacco LIFETIME NON-TOBACCO 01/05/2016 V A [facility] use USER [facility] History of tobacco LIFETIME NON-TOBACCO 11/29/2009 V A [facility] use USER [facility] Plan of Care List of future care activities from [facility] facilities. Additional future care activities may be listed in the Assessment and Plan section. Date/Time Care Activity Care Activity Detail Facility 06/18/2022 AMBULATORY - REHAB AMBULATORY - REHAB [facility] W STRN MEDICINE MEDICINE [facility] Advance Directives List of completed, amended, or rescinded Advance Directives on record at [facility] facilities. An actual copy of the Directive is not included. Date Advance Directive Provider Source 11/13/2017 ADVANCE DIRECTIVE MUSA STRINGER [place] [facility] [facility] 11/12/2017 GOALS and PREFERENCES TO [facility]USA [facility]
--- OUTSIDE RECORDS SUMMARY | 2022-06-03 23:36 | XMS_ITS ---
:1945 Author Organization Department of [facility] rs Address [address] [place] [id number] Support Name Relationship Address Phone ROLANDO LAWLER Unavailable [address] [phone] [place] [address] KELSEY HAILE Unavailable [address] [place] [address] Insurance Providers: All historical and current Section [...] MEDICARE MEDICARE PART Apr 25, PART A [id number] [phone] LANGLA ND PATIENT (WNR) (M) A 2010 RENEE AVALOS MEDICARE MEDICARE PART Apr 25, PART B [id number] [phone] LANGLA ND PATIENT (WNR) (M) B 2010 RENEE AVALOS MEDICARE MEDICARE PART Apr 25, PART A [id number] [phone] BRAEDENLA ND PATIENT (WNR) (M) A 2010 RENEE AVALOS MEDICARE MEDICARE PART Apr 25, PART B [id number] [phone] BRAEDENLA ND PATIENT (WNR) (M) B 2010 RENEE AVALOS Selected Encounter This section includes the information on record at [place] for the Encounter. Date/Time Encounter Type Encounter Description Reason Provider Source Apr 30, 2022 03:17 Outpatient Encounter ADMIN PAT ACTIVTIES PM (MASNONCT) IHE Encounter Template Text not used by [facility] Plan of Treatment: Future Appointments (+ 6 months) and Future Tests (+/- 45 days) The Plan of Treatment section includes future care activities for the patient from [facility] [place] [facility] This section includes future appointments and future orders which are active, pending orscheduled.Future Appointments This section includes appointments that were scheduled to occur 6 months from the date of the Encounter, up to a maximum of 20 appointments. The data comes from all [place] treatment facilities. Appointment Date/Time Appointment Type Appointment Facili ty Name May 01, 2022 10:00 AM [place] [facility] [place] [facility] May 16, 2022 09:00 AM AM[place]ORY - NONE [place] [facility] [place] [facility] May 16, 2022 10:00 AM [place]IC[place] [facility] [place] [facility] Jun 18, 2022 11:30 AM AMBUL[place]ORY [place] [facility] [place] [facility] Jun 25, 2022 11:30 AM AMBUL[place]ORY [place] [facility] [place] [facility] [place] [facility] Jul 04, 2022 01:00 PM AMBULATORY - [place] [facility] [place] [place] [facility] Social History: Smoking Status (Most current) and Tobacco Use (All prior to encounter date) This section includes the most current, and the historical, smoking and tobacco-related health factors from the [place] facility where the Encounter took place.Current Smoking Status This section includes the most current smoking, or tobacco-related health factor, from the [place] facility where the Encounter took place. Date/Time Current Smoking Status Comment Facility May 09, 2020 01:30 PM VA-TOBACCO NEVER USED [place] [facility] [place] [facility] Tobacco Use History This section includes a history of the smoking, or tobacco- related health factors, that were collected on or before the date of the Encounter. The data comes from the [place] facility where the Encounter took place. Date/Time Smoking Status/Tobacco Use Comment [facility] Feb 11, 2020 03:54 PM VA-TOBACCO NEVER USED [place] [facility] [place] [facility] Feb 05, 2019 08:10 AM VA-TOBACCO FORMER USER [facility] [place] [facility] Feb 05, 2019 08:10 AM VA-TOBACCO QUIT 15 YRS OR [facility] [place] [facility] Apr 14, 2017 02:07 PM QUIT TOBACCO USE > 7 YEARS [facility] [place] [facility] Jan 05, 2016 02:32 PM LIFETIME NON-TOBACCO USER [place] [facility] [place] [facility] Nov 29, 2009 09:18 AM LIFETIME NON-TOBACCO USER [place] [facility] [place] [facility] Advance Directives: All historical and current Section Date Range: From patient's date of to the date document was created. This section includes ALL of a patient's completed or amended [facility] Advance and Rescinded Directives. The entries below indicate that a directive exists for the patient, but an actual copy is not included with this document. The data comes from all [place] facilities. Date Advance Directives Provider Source Nov 13, 2017 ADVANCE DIRECTIVE MUSA STRINGER [place] [facility] [facility] Nov 12, 2017 GOALS & PREFERENCES TO MUSA STRINGER [place] [facility] INFORM LIFE-SUSTAINING MASSUSE ST. [...] the Encounter. The data comes from all [place] treatment facilities. Date/Time Radiology Report Provider Source May 16, 2022 08:47 KNEE 2 VIEWS (RIGHT): RADIOLOGY,OUTSIDE [facility] ISAMAR RENEE LAWLER LYNDA [phone] -[birth year] 7 M SERVICE [facility] Exm Date: MAY 16, 2022@08:47 Req Phys: JULIANNE WILLINGHAM Pat Loc: [facility]/NO/ NEPHROLOGY TEL-X (Re Img Loc: [facility]/BUILDING 1 Service: Unknown (Case [id number] COMPLETE) KNEE 3 VIEWS(RIGHT) (RAD Det eder) CPT:24094 Proc Modifiers : RIGHT Reason for Study: pain (Case 250 COMPLETE) KNEES BILAT STANDING (RAD De tailed) CPT:88533 (Case 251 COMPLETE) KNEE 3 VIEWS (LEFT) (RAD Det eder) CPT:97401 Proc Modifiers : LEFT Clinical History: Report Status: Verified Date Reported: MAY 16, 2022 Date Verified: MAY 16, 2022 News Editor E-Sig: Report: KNEE 3 VIEWS(RIGHT) [PRINTSET], KNEES BILAT STA NDING [PRINTSET], KNEE 3 VIEWS (LEFT) [PRINTSET] INDICATION: pain COMPARISON: None TECHNIQUE: 9 views of the bilateral knees, subm itted to the [place] National Teleradiology Program (NTP) for interp retation. Impression: RIGHT: No acute fracture or traumatic malalignm ent. 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 Moderate degenerative changes of the patellofem oral knee compartment. Moderate knee joint effusion LEFT: No acute fracture or traumatic alignment. Advanced tricompartmental degenerative changes. No knee joint effusion READING PHYSICIAN: Rosales Cartagena MD -[id number] 05/16/2022 14:17 EST [facility] National Teleradiology Program [phone] (For Medical Practitioner Use Only ) Attention Patients / Veterans: If you have ques tions or concerns about these test results, please contact your [facility] provider or primary care team. Primary Diagnostic Code: NO ALERT REQUIRED Primary Interpreting Staff: RADIOLOGY,OUTSIDE SERVICE, Staff Physician / Encounter Notes: All associated encounter notes This section contains the clinical notes associated to the Encounter. Date/Time Encounter Note(s) Provider Source Apr 30, 2022 03:17 PM ADMINISTRATIVE NOTE: TERRENCE JOHN [place] [facility] LOCAL TITLE: [facility]: SCHEDULING ADMINISTRATION [facility] STANDARD TITLE: ADMINISTRATIVE NOTE DATE OF NOTE: APR 30, 2022@15:17:13 ENTRY DATE: APR 30, 2022@15:17:13 AUTHOR: TERRENCE JOHN EXP COSIGNER: URGENCY: STATUS: COMPLETED Patient Demographics Patient Name: RENEE LAWLER Patient Primary Address: [address] [place] [address]
[place] [address] SSN: [id number] Patient : 1945 Patient Age: 76 Caller/Recipient Relation to Patient: Self Progress Note Note Comments: Pt calling in regards to electrical tester battery voicemail from today. He states he would like to speak with her. Sent to rn/electrical tester battery Patient Requesting Follow-Up RTC Patient Call Date/Time: 2022-04-30 20:15:57 Clinical Contact Center Codes Clinic/Location: V1 CWM PHONE [facility] ADMIN /es/ TERRENCE JOHN VISN1 CCC AMSA Signed: 04/30/2022 15:17 Receipt Acknowledged By: * AWAITING SIGNATURE * ASHLEY ESTRADA * AWAITING SIGNATURE * GEMMA CHERRY
[2022-06-04] VITALS (10 sets, daily range): BP systolic 122–142; BP diastolic 68–86; PULSE 74–89; RESP 18–24; TEMP 36.2–37.2; O2SAT 95–98; BMI 54.4
--- NOTE | 2022-06-04 | ECG_ITS ---
Test Reason : IRREG RHYTHM Blood Pressure : / mmHG Vent. Rate : 085 BPM Atrial Rate : 000 BPM P-R Int : 000 ms QRS Dur : 114 ms QT Int : 368 ms P-R-T Axes : 000 -49 -33 degrees QTc Int : 437 ms Atrial fibrillation Left anterior fascicular block Moderate voltage criteria for LVH, may be normal variant ( R in aVL , Oleksandr product ) Nonspecific ST and T wave abnormality Abnormal ECG When compared with ECG of 03-JUN-2022 15:28, Criteria for Septal infarct are no longer Present Referred By: Gen Marino Electronically Signed By:Alex Vega
[2022-06-04 00:36] LABS: Anion Gap 15 (12-20); Blood Urea Nitrogen 45 mg/dL (9-16); Calcium 8.2 mg/dL (8.4-10.2); Carbon Dioxide 24 mmol/L (22-29); Chloride 103 mmol/L (96-108); Creatinine Clr Calc Pharmacy 45.9; Estimated Glomerular Filt Rate 29; Glucose Random 166 mg/dL (60-115); Potassium 4.8 mmol/L (3.3-5.1); Sodium 137 mmol/L (135-145)
--- NOTE | 2022-06-04 00:57 | MHC.EDTECH ---
pt is resting comfortable. vitals were taken,
--- NOTE | 2022-06-04 04:28 | PC.NURSE ---
Spoke with pt. about allergies. Pharmacy was questioning an antibiotic as pt. has a cephalexin allergy listed. Pt. couldn't recall any adverse reactions to cephalexin. Pt. does state that sulfas cause severe constipation. Pt. reports not really having an allergy to penicillin, but being overmedicated with it back when he was in [place] during the war. Pt. reports that most doctors won't prescribe it, yet some will. Pt. is a poor historian and couldn't recall reactions listed to other medication on his allergy list. Pt. currently sleeping in bed. Respirations are even and unlabored. No distress noted. Will continue to monitor.
[2022-06-04] MEDS: cefTRIAXone sodium 1 GM in 0.9 % Sodium Chloride 50 ML IV (06:30)
[2022-06-04] MEDS: Ascorbic Acid 250 MG TABLET PO (06:30)
[2022-06-04] MEDS: Aspirin Enteric Coated 81 MG TABLET.DR PO (06:31)
[2022-06-04] MEDS: Metoprolol Succinate ER 100 MG TAB.ER.24H PO (06:31)
[2022-06-04] MEDS: Metoprolol Succinate ER 25 MG TAB.ER.24H PO (06:31)
[2022-06-04] MEDS: Magnesium Oxide 400 MG TABLET PO (06:31)
[2022-06-04] MEDS: methylPREDNISolone Sod Succ 40 MG/ML VIAL IVPUSH ×2 (06:34→17:24)
--- NOTE | 2022-06-04 06:41 | PC.NURSE ---
Woke up pt. for morning medications. IV in the right AC is painful to the patient, blood return not present, and difficult to flush. Removed IV. IV in left hand remains patent.
[2022-06-04 06:56] LABS: Basophils Percent Auto 0.2 % (0-2); Eosinophils Percent Auto 0.2 % (0-4); Hematocrit 37.3 % (42.0-52.0); Imm Gran Abs Auto 0.11 X10*3/uL (0.00-0.03); Imm Gran Pct Auto 0.6 % (0.0-0.4); Lymphocytes Absolute Auto 0.7 X10*3/uL (1.2-4.9); Lymphocytes Percent Auto 3.5 % (20-40); MANUAL DIFF FLAG SCAN; Mean Corpuscular HGB Conc 32.2 g/dl (31.0-36.0); Mean Corpuscular Hemoglobin 27.8 pg (27.0-33.0); Mean Corpuscular Volume 86.5 fL (80.0-98.0); Mean Platelet Volume 9.7 fL (9.4-12.4); Monocytes Absolute Auto 0.7 X10*3/uL (0.1-1.2); Monocytes Percent Auto 3.4 % (2-11); Neutrophils Absolute Auto 17.8 x10*3/uL (2.0-8.3); Neutrophils Percent Auto 92.1 % (45-73); Platelet Count 115 X10*3/uL (160-400); Red Blood Count 4.31 X10*6/uL (4.60-5.80); Red Cell Distribution Width 15.8 % (11.0-16.0); SCAN SMEAR FLAG 1; White Blood Count 19.3 X10*3/uL (4.8-10.8)
[2022-06-04] MEDS: Lactated Ringers 1,000 ML 100 ML IVCONT (07:03)
[2022-06-04 07:21] LABS: Anion Gap 13 (12-20); Blood Urea Nitrogen 42 mg/dL (9-16); Calcium 8.3 mg/dL (8.4-10.2); Carbon Dioxide 21 mmol/L (22-29); Chloride 107 mmol/L (96-108); Creatinine Clr Calc Pharmacy 56.1; Estimated Glomerular Filt Rate 37; Glucose Random 108 mg/dL (60-115); Potassium 4.2 mmol/L (3.3-5.1); Sodium 137 mmol/L (135-145)
[2022-06-04 07:25] LABS: SLIDE REVIEW VERIFIED
[2022-06-04] MEDS: 0.9 % Sodium Chloride Flush 3 ML SYRINGE IVFLUSH ×3 (08:00→20:20)
[2022-06-04] MEDS: Apixaban 5 MG TABLET 10 MG PO ×2 (09:12→20:19)
[2022-06-04] MEDS: Furosemide 20 MG TABLET PO ×2 (09:12→17:24)
--- NOTE | 2022-06-04 14:08 | MHC.EDTECH ---
output 640 urine at 1200, bedside urinal
--- NOTE | 2022-06-04 14:50 | MHC.CM.PN ---
Attempted to meet with patient in regards to discharge planning. Patient has advanced dementia. HCP is invoked. Attempted to speak with patient's sister/HCP, Madyson via telephone at [phone]. Left message requesting return telephone call explaining IMM would be sent via certified mail. Case management assessment completed using medical record. Patient is a [facility] care of resident [facility] and is total care. Copy of HCP received from [facility]. Patient has received 5 Pfizer vaccines. Anticipate patient will return to [facility] via BLS when medically stable. Comtinue to monitor for d/c needs.
--- NOTE | 2022-06-04 15:06 | HO.PM.IMPN ---
Subjective Subjective Date of Service: 06/05/22 Interval History: Leg pain/erythema Review of Systems leg pain and erythema seems improvin denies any chest pain or nausea or vomiting or abdominal pain. Physical Exam Vital Signs: Vital Signs: Last Vital Signs Temp 97.2 F 06/04/22 14:06 Pulse 79 06/04/22 14:06 Resp 24 H 06/04/22 14:06 BP 122/68 06/04/22 14:06 Pulse Ox 96 06/04/22 14:06 O2 Del Method 06/04/22 14:06 BMI result Body Mass Index 53.1 Appearance: Alert.? Oriented X3.? not in distress.? cvs: rrr, [id number] res: clear to auscultation ,no rhonchii or wheezing abd: no rebound or guarding ,nt, bs present. ext pulses present , no cyanosis. neuro: axo3 , nonfocal. Objective Data Active Medications Acetaminophen (Acetaminophen 325 Mg Tablet) 650 mg PO Q6H PRN PRN Reason: Pain, Mild (Pain Scale 1-3) Albuterol Sulfate (Albuterol Sulfate 90 Mcg 8 Gm Inhaler) 1 puff INHALE QID PRN PRN Reason: Shortness Of Breath Apixaban (Apixaban 5 Mg Tablet) 10 mg PO BID [facility] Stop: 06/10/22 09:01 Last Admin: 06/04/22 09:12 Dose: 10 mg Documented By: ALBERT Ascorbic Acid (Ascorbic Acid 250 Mg Tablet) 250 mg PO DAILY@0600 [facility] Last Admin: 06/04/22 06:30 Dose: 250 mg Documented By: YUSUF Aspirin (Aspirin Enteric Coated 81 Mg Tablet.Dr) 81 mg PO DAILY@0600 [facility] Last Admin: 06/04/22 06:31 Dose: 81 mg Documented By: YUSUF Bisacodyl (Bisacodyl 10 Mg Supp.Rect) 10 mg WA DAILY PRN PRN Reason: Constipation Albuterol Sulfate 2.5 mg/ (Ipratropium [place] 0.5 mg) 0 mg INHALE RQ4H WHILE AWAKE [facility] Last Admin: 06/04/22 11:35 Dose: 1 each Documented By: MICHELLE Albuterol Sulfate 2.5 mg/ (Ipratropium [place] 0.5 mg) 0 mg INHALE Q2H PRN PRN Reason: shortness of breath/wheezing Docusate Sodium (Docusate Sodium 100 Mg Capsule) 100 mg PO DAILY PRN PRN Reason: Constipation Furosemide (Furosemide 20 Mg Tablet) 20 mg PO BIDWM [facility], [facility]; Protocol Last Admin: 06/04/22 09:12 Dose: 20 mg Documented By: ALBERT Ceftriaxone Sodium 1 gm/ (Sodium Chloride) 50 mls @ 100 mls/hr IV Q24H [facility] Last Infusion: 06/04/22 07:04 Dose: 0 mls/hr Documented By: YUSUF Magnesium Hydroxide (Milk Of Magnesia 30 Ml Oral.Susp) 30 ml PO DAILY PRN PRN Reason: Constipation Magnesium Oxide (Magnesium Oxide 400 Mg Tablet) 400 mg PO DAILY@0600 [facility] Last Admin: 06/04/22 06:31 Dose: 400 mg Documented By: YUSUF Methylprednisolone Sodium Succinate (Methylprednisolone Sod Succ 40 Mg/Ml Vial) 40 mg IVPUSH Q12H [facility] Last Admin: 06/04/22 06:34 Dose: 40 mg Documented By: YUSUF Metoprolol Succinate (Metoprolol Succinate Er 25 Mg Tab.Er.24h) 25 mg PO DAILY@0600 [facility]; Protocol Last Admin: 06/04/22 06:31 Dose: 25 mg Documented By: YUSUF Metoprolol Succinate (Metoprolol Succinate Er 100 Mg Tab.Er.24h) 100 mg PO DAILY@0600 [facility]1983; Protocol Last Admin: 06/04/22 06:31 Dose: 100 mg Documented By: YUSUF Nystatin (Nystatin Powder 15 Gm Bottle) 1 appl TOPICAL BID PRN; Protocol PRN Reason: Rash Ondansetron HCl (Ondansetron Hcl 4 Mg/2 Ml Vial) 4 mg IVPUSH Q8H PRN PRN Reason: Nausea and Vomiting Sodium Chloride (0.9 % Sodium Chloride Flush 3 Ml Syringe) 3 ml IVFLUSH QSHIFT [facility] Last Admin: 06/04/22 08:00 Dose: 3 ml Documented By: ALBERT Labs 06/04/22 06:40 06/04/22 06:40 Labs: Laboratory Results - last 24 hr 06/03/22 06/03/22 06/03/22 15:28 15:28 15:28 MCV 86.3 MCH 27.5 MCHC 31.9 RDW 15.9 Plt Count 133 L MPV 9.3 L Immature Gran % (Auto) 1.6 H Neut % (Auto) 91.4 H Lymph % (Auto) 1.4 L [place] % (Auto) 5.3 Eos % (Auto) 0.1 Baso % (Auto) 0.2 Lymph # (Auto) 0.4 L [place] # (Auto) 1.6 H Eos # (Auto) 0.0 Baso # (Auto) 0.1 Abs Immat Gran (auto) 0.49 H Absolute Neuts (auto) 27.2 H Absolute Nucleated RBC 0.000 Nucleated RBC % (auto) 0.0 Smear Tech's Comments VERIFIED PT INR Anion Gap 16 Estim Creat Clear Calc 43.6 Estimated GFR 27 Random Glucose 203 H Fasting Glucose 205 H Lactic Acid 1.8 Calcium 8.6 Magnesium 1.9 Total Bilirubin 1.0 Direct Bilirubin 0.3 AST 19 ALT 24 Alkaline Phosphatase 46 Troponin I High Sens B-Natriuretic Peptide Total Protein 5.2 L Albumin 3.4 L Lipase 11 TSH 1.05 Urine Color Urine Appearance Urine pH Ur Specific [place] Urine Protein Urine Glucose (UA) Urine Ketones Urine Blood Urine Nitrite Ur Leukocyte Esterase COVID-19 (FAY) COVID-19 Clin Com Influenza Type A (MELYSSA) Influenza Type B (MELYSSA) Influenza A & B Note 06/03/22 06/03/22 06/03/22 15:28 15:28 15:32 MCV MCH MCHC RDW Plt Count MPV Immature Gran % (Auto) Neut % (Auto) Lymph % (Auto) [place] % (Auto) Eos % (Auto) Baso % (Auto) Lymph # (Auto) [place] # (Auto) Eos # (Auto) Baso # (Auto) Abs Immat Gran (auto) Absolute Neuts (auto) Absolute Nucleated RBC Nucleated RBC % (auto) Smear Tech's Comments PT 12.2 INR 1.1 Anion Gap Estim Creat Clear Calc Estimated GFR Random Glucose Fasting Glucose Lactic Acid Calcium Magnesium Total Bilirubin Direct Bilirubin AST ALT Alkaline Phosphatase Troponin I High Sens 39.9 H B-Natriuretic Peptide 147 H Total Protein Albumin Lipase TSH Urine Color Urine Appearance Urine pH Ur Specific [place] Urine Protein Urine Glucose (UA) Urine Ketones Urine Blood Urine Nitrite Ur Leukocyte Esterase COVID-19 (FAY) COVID-19 Clin Com Influenza Type A (MELYSSA) Influenza Type B (MELYSSA) Influenza A & B Note 06/03/22 06/03/22 06/03/22 15:40 15:40 19:09 MCV MCH MCHC RDW Plt Count MPV Immature Gran % (Auto) Neut % (Auto) Lymph % (Auto) [place] % (Auto) Eos % (Auto) Baso % (Auto) Lymph # (Auto) [place] # (Auto) Eos # (Auto) Baso # (Auto) Abs Immat Gran (auto) Absolute Neuts (auto) Absolute Nucleated RBC Nucleated RBC % (auto) Smear Tech's Comments PT INR Anion Gap Estim Creat Clear Calc Estimated GFR Random Glucose Fasting Glucose Lactic Acid Calcium Magnesium Total Bilirubin Direct Bilirubin AST ALT Alkaline Phosphatase Troponin I High Sens B-Natriuretic Peptide Total Protein Albumin Lipase TSH Urine Color Yellow Urine Appearance Clear Urine pH 6.0 Ur Specific [place] 1.015 Urine Protein Negative Urine Glucose (UA) Negative Urine Ketones Negative Urine Blood Negative Urine Nitrite Negative Ur Leukocyte Esterase Negative COVID-19 (FAY) Negative COVID-19 Clin Com See Note Influenza Type A (MELYSSA) Negative Influenza Type B (MELYSSA) Negative Influenza A & B Note See Note 06/04/22 06/04/22 06/04/22 00:04 06:40 06:40 MCV 86.5 MCH 27.8 MCHC 32.2 RDW 15.8 Plt Count 115 L MPV 9.7 Immature Gran % (Auto) 0.6 H Neut % (Auto) 92.1 H Lymph % (Auto) 3.5 L [place] % (Auto) 3.4 Eos % (Auto) 0.2 Baso % (Auto) 0.2 Lymph # (Auto) 0.7 L [place] # (Auto) 0.7 Eos # (Auto) 0.0 Baso # (Auto) 0.0 Abs Immat Gran (auto) 0.11 H Absolute Neuts (auto) 17.8 H Absolute Nucleated RBC 0.000 Nucleated RBC % (auto) 0.0 Smear Tech's Comments VERIFIED PT INR Anion Gap 15 13 Estim Creat Clear Calc 45.9 56.1 Estimated GFR 29 37 Random Glucose 166 H 108 Fasting Glucose Lactic Acid Calcium 8.2 L 8.3 L Magnesium Total Bilirubin Direct Bilirubin AST ALT Alkaline Phosphatase Troponin I High Sens B-Natriuretic Peptide Total Protein Albumin Lipase TSH Urine Color Urine Appearance Urine pH Ur Specific [place] Urine Protein Urine Glucose (UA) Urine Ketones Urine Blood Urine Nitrite Ur Leukocyte Esterase COVID-19 (FAY) COVID-19 Clin Com Influenza Type A (MELYSSA) Influenza Type B (MELYSSA) Influenza A & B Note Assessment and Plan (1) COPD exacerbation: Status: Acute (2) Cellulitis of leg: Status: Acute (3) Acute kidney injury superimposed on CKD: Status: Acute (4) DVT, lower extremity: Status: Acute Plan 77-year-old male with past medical history of COPD, history of CKD stage 3 presents the hospital and found to have lower extremity cellulitis as well as DVT #? DVT of? left lower extremity -? likely provoked in the setting of minimal movement and mostly bedbound -? will treat with? p.o. anticoagulation -? will obtain nuclear medicine V/Q scan in a.m. to rule out PE,? although less likely patient, has no tachycardia, no tachypnea, and no hypoxia -? monitor respiratory status #? cellulitis of right lower extremity -? has leukocytosis, no lactic acidosis -? afebrile - Will treat with IV antibiotics, follow cultures # ? DAREK on CKD cr seems [facility] #? COPD exacerbation -? patient was being treated for COPD exacerbation at the long term with cough suppressant, prednisone, and breathing treatments -? patient continues to have wheezing -? will treat with IV Solu-Medrol, DuoNeb p.r.n. as well as scheduled -? monitor respiratory status #? history of underlying CHF with preserved ejection fraction -? does not appear to be in exacerbation -? continue furosemide -? monitor BMP # ? Documented history of chronic AFib- -? does not appear to be on anticoagulation prior to today per his med rec -? will treat with anticoagulation port above DVT -? continue metoprolol ?DVT prophylaxis: Eliquis Ongoing inpatient need: DVT, COPD exacerbation, cellulitis: Need IV antibiotics, anticoagulation, nebs, steroids and v/q scan,blood culture are also pending. Time Spent With Patient Time: Total time managing care of this patient today ____ minutes. Quality Stroke Does the patient have a stroke diagnosis?: No VTE Prior VTE?: No VTE Risk Level:: Medical - moderate - high VTE Device Contraindication: Treatment Not Indicated VTE Drug Contraindication: N/A - Med Ordered
--- NOTE | 2022-06-04 16:07 | MHC.EDTECH ---
THIS PCT JUST ASSUMED CARE OF PT ,BUT PT IS IN NUCLEAR MED .
[2022-06-05] VITALS (11 sets, daily range): BP systolic 128–149; BP diastolic 75–96; PULSE 63–93; RESP 18–20; TEMP 36.2–37.1; O2SAT 94–99
[2022-06-05] MEDS: Magnesium Oxide 400 MG TABLET PO (05:03)
[2022-06-05] MEDS: methylPREDNISolone Sod Succ 40 MG/ML VIAL IVPUSH ×2 (05:03→17:29)
[2022-06-05] MEDS: Aspirin Enteric Coated 81 MG TABLET.DR PO (05:03)
[2022-06-05] MEDS: Metoprolol Succinate ER 25 MG TAB.ER.24H PO (05:03)
[2022-06-05] MEDS: Ascorbic Acid 250 MG TABLET PO (05:03)
[2022-06-05] MEDS: oxyCODONE HCl Immed Release 5 MG TABLET 10 MG PO (05:03)
[2022-06-05] MEDS: cefTRIAXone sodium 1 GM in 0.9 % Sodium Chloride 50 ML IV (05:04)
[2022-06-05] MEDS: Metoprolol Succinate ER 100 MG TAB.ER.24H PO (05:08)
[2022-06-05] MEDS: 0.9 % Sodium Chloride Flush 3 ML SYRINGE IVFLUSH ×3 (08:44→23:36)
[2022-06-05] MEDS: Furosemide 20 MG TABLET PO ×2 (08:45→16:08)
[2022-06-05] MEDS: Apixaban 5 MG TABLET 10 MG PO ×2 (08:45→19:54)
[2022-06-05 09:00] LABS: Hematocrit 40.1 % (42.0-52.0); Mean Corpuscular HGB Conc 32.4 g/dl (31.0-36.0); Mean Corpuscular Hemoglobin 27.5 pg (27.0-33.0); Mean Platelet Volume 9.4 fL (9.4-12.4); Platelet Count 127 X10*3/uL (160-400); Red Blood Count 4.72 X10*6/uL (4.60-5.80); Red Cell Distribution Width 15.6 % (11.0-16.0); White Blood Count 17.9 X10*3/uL (4.8-10.8)
--- NOTE | 2022-06-05 15:16 | P.PNIM_ITS ---
Subjective Subjective Date of Service: 06/05/22 Interval History: Leg pain/erythema Review of Systems leg? pain and erythema seems improvin denies any chest pain or nausea or vomiting or abdominal pain. Physical Exam Vital Signs: Vital Signs: Last Vital Signs Temp 97.6 F 06/05/22 11:19 Pulse 85 06/05/22 11:25 Resp 20 06/05/22 11:25 BP 131/90 H 06/05/22 11:19 Pulse Ox 97 06/05/22 11:19 O2 Del Method 06/05/22 11:19 BMI result Body Mass Index 54.4 Appearance: Alert.? Oriented X3.? not in distress.? cvs: rrr, [id number] res: clear to auscultation ,no rhonchii or wheezing abd: no rebound or guarding ,nt, bs present. ext pulses present , no cyanosis. right leg erythema /swelli neuro: axo3 , nonfocal. Objective Data Active Medications Acetaminophen (Acetaminophen 325 Mg Tablet) 650 mg PO Q6H PRN PRN Reason: Pain, Mild (Pain Scale 1-3) Albuterol Sulfate (Albuterol Sulfate 90 Mcg 8 Gm Inhaler) 1 puff INHALE QID PRN PRN Reason: Shortness Of Breath Apixaban (Apixaban 5 Mg Tablet) 10 mg PO BID [facility] Stop: 06/10/22 09:01 Last Admin: 06/05/22 08:45 Dose: 10 mg Documented By: CHRISTIAN Ascorbic Acid (Ascorbic Acid 250 Mg Tablet) 250 mg PO DAILY@0600 [facility] Last Admin: 06/05/22 05:03 Dose: 250 mg Documented By: DON Aspirin (Aspirin Enteric Coated 81 Mg Tablet.Dr) 81 mg PO DAILY@0600 [facility] Last Admin: 06/05/22 05:03 Dose: 81 mg Documented By: DON Bisacodyl (Bisacodyl 10 Mg Supp.Rect) 10 mg [place] DAILY PRN PRN Reason: Constipation Albuterol Sulfate 2.5 mg/ (Ipratropium [place] 0.5 mg) 0 mg INHALE RQ4H WHILE AWAKE [facility] Last Admin: 06/05/22 11:23 Dose: 2.5 each Documented By: ELVIA Albuterol Sulfate 2.5 mg/ (Ipratropium [place] 0.5 mg) 0 mg INHALE Q2H PRN PRN Reason: shortness of breath/wheezing Docusate Sodium (Docusate Sodium 100 Mg Capsule) 100 mg PO DAILY PRN PRN Reason: Constipation Furosemide (Furosemide 20 Mg Tablet) 20 mg PO BIDWM [facility]; Protocol Last Admin: 06/05/22 08:45 Dose: 20 mg Documented By: CHRISTIAN Ceftriaxone Sodium 1 gm/ (Sodium Chloride) 50 mls @ 100 mls/hr IV Q24H [facility] Last Infusion: 06/05/22 05:40 Dose: 100 mls/hr Documented By: DON Magnesium Hydroxide (Milk Of Magnesia 30 Ml Oral.Susp) 30 ml PO DAILY PRN PRN Reason: Constipation Magnesium Oxide (Magnesium Oxide 400 Mg Tablet) 400 mg PO DAILY@0600 [facility] Last Admin: 06/05/22 05:03 Dose: 400 mg Documented By: DON Methylprednisolone Sodium Succinate (Methylprednisolone Sod Succ 40 Mg/Ml Vial) 40 mg IVPUSH Q12H [facility] Last Admin: 06/05/22 05:03 Dose: 40 mg Documented By: DON Metoprolol Succinate (Metoprolol Succinate Er 25 Mg Tab.Er.24h) 25 mg PO DAILY@0600 [facility]; Protocol Last Admin: 06/05/22 05:03 Dose: 25 mg Documented By: DON Metoprolol Succinate (Metoprolol Succinate Er 100 Mg Tab.Er.24h) 100 mg PO DAILY@0600 [facility]; Protocol Last Admin: 06/05/22 05:08 Dose: 100 mg Documented By: DON Nystatin (Nystatin Powder 15 Gm Bottle) 1 appl TOPICAL BID PRN; Protocol PRN Reason: Rash Ondansetron HCl (Ondansetron Hcl 4 Mg/2 Ml Vial) 4 mg IVPUSH Q8H PRN PRN Reason: Nausea and Vomiting Sodium Chloride (0.9 % Sodium Chloride Flush 3 Ml Syringe) [facility] Last Admin: 06/05/22 08:44 Dose: 3 ml Documented By: CHRISTIAN Labs 06/05/22 08:43 06/04/22 06:40 Labs: Laboratory Results - last 24 hr 06/05/22 08:43 MCV 85.0 MCH 27.5 MCHC 32.4 RDW 15.6 Plt Count 127 L MPV 9.4 Absolute Nucleated RBC 0.000 Nucleated RBC % (auto) 0.0 Microbiology Microbiology Results: Microbiology 06/03/22 15:32 Blood Culture - Preliminary Blood - Venous No growth after 24 hours. 06/03/22 15:32 Blood Culture - Preliminary Blood - Venous No growth after 24 hours. Assessment and Plan (1) DVT, lower extremity: Status: Acute (2) Morbid obesity: Status: Acute (3) Cellulitis of leg: Status: Acute Plan 77-year-old male with past medical history of COPD, history of CKD stage 3 presents the hospital and found to have lower extremity cellulitis as well as DVT #? DVT of? left lower extremity -? likely provoked in the setting of minimal movement and mostly bedbound -? will treat with? p.o. anticoagulation -? will obtain nuclear medicine V/Q scan low probability,? although less likely patient, has no tachycardia, no tachypnea, and no hypoxia -? monitor respiratory status #? cellulitis of right lower extremity -? has leukocytosis, no lactic acidosis -? afebrile - Will treat with IV antibiotics, follow cultures # ? DAREK on CKD cr seems near [facility] ivf #? COPD exacerbation -? patient was being treated for COPD exacerbation at the snf with cough suppressant, prednisone, and breathing treatments -? patient continues to have wheezing -? will treat with IV Solu-Medrol, DuoNeb p.r.n. as well as scheduled -? monitor respiratory status #? history of underlying CHF with preserved ejection fraction -? does not appear to be in exacerbation -? continue furosemide -? monitor BMP # ? Documented history of chronic AFib- -? does not appear to be on anticoagulation prior to today per his med rec -? will treat with anticoagulation port above DVT -? continue metoprolol morbid obesity: encouraged to lose weight. ?DVT prophylaxis: Eliquis Ongoing inpatient need:? DVT, COPD exacerbation, cellulitis:? Need IV antibiotics, anticoagulation, nebs,blood culture pendin. Time Spent With Patient Time: Total time managing care of this patient today ____ minutes. Quality Stroke Does the patient have a stroke diagnosis?: No VTE Prior VTE?: No VTE Risk Level:: Medical - moderate - high VTE Device Contraindication: Treatment Not Indicated VTE Drug Contraindication: N/A - Med Ordered
--- NOTE | 2022-06-05 16:29 | W.PM.IDCN ---
History of Present Illness Data of Consult Service Date: 06/05/22 Requesting physician: Gen Marino Primary Care Provider: Lalit John MD [facility] Reason for consult: right leg discomfort?cellulitis He presents with confusion and weakness. He has COPD and B cell lymphoma and has been on 20 mg daily Prednisone. He has no reported urinary symptoms or cough. He has leg pain bilaterally. He has left leg DVT and right leg pain as well and chronic venous stasis changes. He has no fever or chills. Review of Systems Review of Systems: Yes all other systems are reviewed and are negative [facility] Past Medical History Medical History Anemia, unspecified B-cell lymphoma Chronic a-fib COPD (chronic obstructive pulmonary disease) Dermatitis Edema Hammer toes of both feet Hearing loss Impaired fasting glucose Mild cognitive impairment Morbid obesity Nail dystrophy Osteoarthritis Pain in right shoulder Stage 3 chronic kidney disease Unspecified atherosclerosis of [place] arteries of extremities, bilateral legs Family History Family History Other No family history of coronary artery disease Family history: reviewed and not pertinent Surgical History Surgical History No pertinent past surgical history Social History Social History Household Members: Other Housing: [facility] Do you presently have visiting nurse or other home services: No Alcohol intake: never Patient Tobacco Use Status: Former Tobacco user Tobacco use type: Cigarette Use of substances other than those prescribed or required for medical reasons: No Currently Displaying Signs/Symptoms of Drug Intoxication Withdrawal: No Any prior treatment program specific to substance use: No Have you been hit, kicked, punched, or otherwise hurt by someone within the past year? If so, by whom?: No Do you feel safe in your current relationship?: Yes Is there a partner from a previous relationship who is making you feel unsafe now?: No Are you made to feel afraid or neglected: No Advance Directives: Yes Advance Directives on File: Yes Advance Directives Date on File: 06/04/22 Do you have thoughts of harming others: None Do you have a plan to hurt others: No Plan Recently lost weight without trying: No Nutrition Risks: No Nutritional Risk service: Yes Current occupational status: retired Meds Allergies Allergy/AdvReac Type Severity Reaction Status Date / Time cephalexin [From KEFLEX] Allergy Unknown UNKNOWN Verified 02/11/22 16:32 meropenem [MEROPENEM] Allergy Unknown UNKNOWN Verified 05/24/20 03:36 Penicillins [PENICILLINS] Allergy Unknown UNKNOWN Verified 05/24/20 03:36 sulfamethoxazole Allergy Unknown UNKNOWN Verified 06/04/22 01:15 [From BACTRIM] trimethoprim [From BACTRIM] Allergy Unknown UNKNOWN Verified 05/24/20 03:36 Active Medications: Current Medications Acetaminophen (Acetaminophen 325 Mg Tablet) 650 mg PO Q6H PRN PRN Reason: Pain, Mild (Pain Scale 1-3) Albuterol Sulfate (Albuterol Sulfate 90 Mcg 8 Gm Inhaler) 1 puff INHALE QID PRN PRN Reason: Shortness Of Breath Apixaban (Apixaban 5 Mg Tablet) 10 mg PO BID [facility] Stop: 06/10/22 09:01 Last Admin: 06/05/22 08:45 Dose: 10 mg Ascorbic Acid (Ascorbic Acid 250 Mg Tablet) 250 mg PO DAILY@0600 [facility] Last Admin: 06/05/22 05:03 Dose: 250 mg Aspirin (Aspirin Enteric Coated 81 Mg Tablet.Dr) 81 mg PO DAILY@0600 [facility] Last Admin: 06/05/22 05:03 Dose: 81 mg Bisacodyl (Bisacodyl 10 Mg Supp.Rect) 10 mg [place] DAILY PRN PRN Reason: Constipation Albuterol Sulfate 2.5 mg/ (Ipratropium [place] 0.5 mg) 0 mg INHALE RQ4H WHILE AWAKE [facility] Last Admin: 06/05/22 15:41 Dose: 2.5 each Albuterol Sulfate 2.5 mg/ (Ipratropium [place] 0.5 mg) 0 mg INHALE Q2H PRN PRN Reason: shortness of breath/wheezing Docusate Sodium (Docusate Sodium 100 Mg Capsule) 100 mg PO DAILY PRN PRN Reason: Constipation Furosemide (Furosemide 20 Mg Tablet) 20 mg PO BIDWM [facility]; Protocol Last Admin: 06/05/22 16:08 Dose: 20 mg Ceftriaxone Sodium 1 gm/ (Sodium Chloride) 50 mls @ 100 mls/hr IV Q24H [facility] Last Infusion: 06/05/22 05:40 Dose: Infused Magnesium Hydroxide (Milk Of Magnesia 30 Ml Oral.Susp) 30 ml PO DAILY PRN PRN Reason: Constipation Magnesium Oxide (Magnesium Oxide 400 Mg Tablet) 400 mg PO DAILY@06 [facility] Last Admin: 06/05/22 05:03 Dose: 400 mg Methylprednisolone Sodium Succinate (Methylprednisolone Sod Succ 40 Mg/Ml Vial) 40 mg IVPUSH Q12H [facility] Last Admin: 06/05/22 05:03 Dose: 40 mg Metoprolol Succinate (Metoprolol Succinate Er 25 Mg Tab.Er.24h) 25 mg PO DAILY@06 [facility]; Protocol Last Admin: 06/05/22 05:03 Dose: 25 mg Metoprolol Succinate (Metoprolol Succinate Er 100 Mg Tab.Er.24h) 100 mg PO DAILY@599 [facility]; Protocol Last Admin: 06/05/22 05:08 Dose: 100 mg Nystatin (Nystatin Powder 15 Gm Bottle) 1 appl TOPICAL BID PRN; Protocol PRN Reason: Rash Ondansetron HCl (Ondansetron Hcl 4 Mg/2 Ml Vial) 4 mg IVPUSH Q8H PRN PRN Reason: Nausea and Vomiting Sodium Chloride (0.9 % Sodium Chloride Flush 3 Ml Syringe) [facility] Last Admin: 06/05/22 16:09 Dose: 3 ml Home Medications Medication Instructions Recorded Confirmed Last Taken Type Lactobacillus acidoph-L.bulgaricus 1 tab PO DAILY@59902/11/22 06/03/22 06/03/22 History 1 million cell tablet (Floranex) acetaminophen 325 mg tablet 650 mg PO BEDTIME 02/11/22 06/03/22 06/02/22 History acetaminophen 325 mg tablet 650 mg PO Q6H PRN Pain, Mild (Pain 02/11/22 06/03/22 06/03/22 History Scale 1-3)/FEVER aloe vera 5,000 mg capsule 20,000 mg PO DAILY@59902/11/22 06/03/22 06/03/22 History ascorbic acid (vitamin C) 250 mg 250 mg PO DAILY@59902/11/22 06/03/22 06/03/22 History tablet (Vitamin C) aspirin 81 mg tablet,delayed 81 mg PO DAILY@59902/11/22 06/03/22 06/03/22 History release coenzyme Q10 200 mg capsule 200 mg PO DAILY@0600 02/11/22 06/03/22 06/03/22 History dextromethorphan-guaifenesin 10 10 ml PO QID PRN Cough 02/11/22 06/03/22 Unknown History mg-100 mg/5 mL oral syrup omega 1-xcg-ner-fish oil 1,200 mg 2 cap PO DAILY@0600 02/11/22 06/03/22 06/03/22 History (144 mg-216 mg) capsule (Fish Oil) psyllium husk 3.4 gram/5.4 gram 1 tbsp PO DAILY PRN Constipation 02/11/22 06/03/22 Unknown History oral powder (Metamucil) vitamin E (dl, acetate) 180 mg 180 mg PO DAILY@0600 02/11/22 06/03/22 06/03/22 History (400 unit) capsule Nature Fruits Cap 1 cap PO TID@0600,1300,1700 06/03/22 06/03/22 06/03/22 History Veggie Capsule 1 cap PO TID 06/03/22 06/03/22 06/03/22 History Vital Protein Collagen Peptide 2 ea PO DAILY 06/03/22 06/03/22 06/03/22 History docusate sodium 100 mg capsule 100 mg PO DAILY PRN Constipation 06/03/22 06/03/22 Unknown History (Colace) furosemide 20 mg tablet 20 mg PO BID 06/03/22 06/03/22 06/03/22 History ipratropium 0.5 mg-albuterol 3 mg 3 ml inhalation Q4H PRN Wheezing 06/03/22 06/03/22 Unknown History (2.5 mg base)/3 mL nebulization soln levalbuterol tartrate 45 1 puff inhalation QID PRN 06/03/22 06/03/22 Unknown History mcg/actuation aerosol inhaler Shortness Of Breath nystatin 100,000 unit/gram topical 1 appl topical BID PRN Rash 06/03/22 06/03/22 Unknown History powder prednisone 20 mg tablet 20 mg PO DAILY 06/03/22 06/03/22 06/03/22 History Physical Exam Vital Signs: Vital Signs: Last Vital Signs Temp 97.7 F 06/05/22 15:40 Pulse 79 06/05/22 15:43 Resp 20 06/05/22 15:43 BP 128/85 06/05/22 15:40 Pulse Ox 96 06/05/22 15:40 O2 Del Method 06/05/22 15:40 BMI result Body Mass Index 54.4 Const: General: cooperative HEENT: Head: Yes normal to inspection Face and sinus: Yes normal facial exam Mouth: Normal oral and palatal mucosa present Teeth and gingiva: dentition normal Eyes: General: appearance normal, both eyes and all related structures Pupils: Equal, round and reactive pupils present Resp: Effort & Inspection: normal respiratory effort Cardio: Rate: regular rate Rhythm: regular rhythm GI: Palpation (GI): Soft to palpation and nontender : General: Yes no CVA tenderness Back/Spine/Pelvis: Back: no CVA tenderness Skin: General skin exam: no rashes or lesions noted Neuro: General: moves all extremities Cranial nerves: Yes Equal, round and reactive pupils present Extrem: Other: right venous stasis changes and pain left leg swelling Psych: Appearance: grossly normal Results Labs 06/05/22 08:43 06/04/22 06:40 Labs: Short CBC 06/05/22 Range/Units 08:43 WBC 17.9 H (4.8-10.8) X10*3/uL Hgb 13.0 L (14.0-18.0) g/dl Hct 40.1 L (42.0-52.0) % Plt Count 127 L (160-400) X10*3/uL Microbiology Microbiology Results: Microbiology 06/03/22 15:32 Blood - Venous Blood Culture - Preliminary No growth after 24 hours. 06/03/22 15:32 Blood - Venous Blood Culture - Preliminary No growth after 24 hours. Assessment and Plan (1) DVT, lower extremity: Status: Acute There is no evidence of cellulitis RLE at this time,just venous stasis changes He has no spreading red cellulitis or fever. He has left leg DVT He has leukocytosis likely due to steroids Plan Stop Ceftriaxone. Continue DVT treatment. Time Spent With Patient Time: Total time managing care of this patient today ____ minutes.
[2022-06-06 03:58] VITALS: BP 124/79; PULSE 89; RESP 18; TEMP 37.1; O2SAT 95
[2022-06-06] MEDS: Ascorbic Acid 250 MG TABLET PO (05:23)
[2022-06-06] MEDS: Metoprolol Succinate ER 100 MG TAB.ER.24H PO (05:24)
[2022-06-06] MEDS: Aspirin Enteric Coated 81 MG TABLET.DR PO (05:24)
[2022-06-06] MEDS: methylPREDNISolone Sod Succ 40 MG/ML VIAL IVPUSH (05:25)
[2022-06-06] MEDS: cefTRIAXone sodium 1 GM in 0.9 % Sodium Chloride 50 ML IV (05:25)
[2022-06-06] MEDS: Metoprolol Succinate ER 25 MG TAB.ER.24H PO (05:25)
[2022-06-06] MEDS: Magnesium Oxide 400 MG TABLET PO (05:27)
[2022-06-06 07:41] VITALS: BP 144/92; PULSE 75; RESP 18; TEMP 36; O2SAT 97
[2022-06-06] MEDS: Apixaban 5 MG TABLET 10 MG PO (08:10)
[2022-06-06] MEDS: 0.9 % Sodium Chloride Flush 3 ML SYRINGE IVFLUSH (08:10)
[2022-06-06] MEDS: Acetaminophen 325 MG TABLET 650 MG PO (08:10)
[2022-06-06] MEDS: Furosemide 20 MG TABLET PO (08:10)
[2022-06-06 08:56] VITALS: PULSE 80; RESP 21; O2SAT 97
[2022-06-06] MEDS: predniSONE 20 MG TABLET 40 MG PO (09:20)
[2022-06-06 10:59] VITALS: BP 148/72; PULSE 20; RESP 20; TEMP 36.6; O2SAT 97
[2022-06-06 11:30] VITALS: PULSE 81; RESP 20; O2SAT 97
--- NOTE | 2022-06-06 11:55 | PM.DS ---
DS: Providers Provider Date of Service: 06/06/22 Date of admission: 06/03/22 23:30 Primary care physician: Lalit John MD Consults: 06/05/22 15:23 Consult to Infectious Diseases Routine Consulting Provider: Nimo Segura Reason for consultation: right leg cellulitis Has provider been notified: No DS: Diagnosis Discharge Diagnosis (1) DVT, lower extremity: Status: Acute (2) COPD exacerbation: Status: Acute (3) Acute kidney injury superimposed on CKD: Status: Acute DS: Summary Hospital Course Hospital Course: 87-year-old [facility] resident with a past medical? history of B-cell lymphoma, chronic AFib, COPD, stage III CKD, osteoarthritis, presents the hospital with complaints of lower extremity pain.? There was also report the patient may have been confused at [facility].? Patient reports that he has noticed increased pain in his leg worse on the right for the past 2 days.? he reports no change in the swelling but noticed redness in his right leg.? He reports wheezing, denies any chest pain, no cough, no increased sputum production.? Reports no abdominal pain, no nausea or vomiting, no diarrhea constipation, no urinary symptoms and no weakness numbness or tingling.? On arrival to the ED patient hemodynamically stable with no significant abnormal vitals Labs are significant for WBC count of 29.7, hemoglobin of 12.7, hematocrit 39.8, creatinine of 2.33 with a baseline of around 1.4, troponin of 39.9, BNP of 147, urine negative, serology negative. Chest x-ray shows no acute pulmonary disease Venous duplex of the lower extremity shows positive left lower extremity DVT involving the common femoral and superficial femoral and popliteal veins. Hospital course:Patient was admitted to the hospital for DVT of left lower extremity and as well as question of right lower extremity cellulitis: Initially started on anticoagulation with Eliquis and antibiotics respectively, Blood culture was also sent whic came back negative, Infectious Disease also saw the patient-does not look like cellulitis, looks more venostasis changes, antibiotic discontinued, recommended leg elevation, use stockings if needed . While the patient is on Eliquis for left lower extremity DVT we will hold off aspirin, for duration of anticoagulation and further workup if needed so DVT-consider outpatient hematology evaluation. Leukocytosis improving (leukocytosis possibly related to steroid use). clinton on ckd stage 3 : Received hydration, renal function seems near his baseline. COPD exacerbation: Treated with nebs and steroids seems to be improved. Morbid obesity: Encouraged to lose weight. Plan: Continue Eliquis for DVT left lower extremity. For right lower extremity venous stasis changes leg elevation. CKD stage 3 near baseline monitor renal function and electrolytes in rehab. Complete course of steroids, continue COPD medications. Above management discussed with patient in detail length. Time spent 50 minute. Time Spent with Patient Time attestation: Total time managing care of this patient today ____ minutes. Discharge coordination time: Greater than 30 minutes Quality: Safe Use of Opioids Does Pt have an Active Cancer Diagnosis on the Problem List?: No Quality: Stroke Does the patient have a stroke diagnosis?: No Physical Exam Vital Signs: Vital Signs: Last Vital Signs Temp 98 F 06/06/22 10:59 Pulse 81 06/06/22 11:30 Resp 20 06/06/22 11:30 BP 148/72 H 06/06/22 10:59 Pulse Ox 97 06/06/22 10:59 O2 Del Method 06/06/22 10:59 BMI result Body Mass Index 54.4 Appearance: Alert.? Oriented X3.? not in distress.? cvs: rrr, [id number] res: clear to auscultation ,no rhonchii or wheezing abd: no rebound or guarding ,nt, bs present. ext pulses present , no cyanosis. right leg venostasis changes left leg: nopain or swellin neuro: axo3 , nonfocal. DS: Data Data Completed and Pending Labs on day of discharge: Preliminary micro results at discharge 06/03/22 15:32 Blood Culture - Preliminary Blood - Venous No growth after 48 hours. 06/03/22 15:32 Blood Culture - Preliminary Blood - Venous No growth after 48 hours. Imaging Chest x-ray: Radiologist's impression: ITS Impressions Chest X-Ray 06/03/22 16:05 IMPRESSION: No acute pulmonary disease compared to 02/11/2022. Venous Duplex 06/03/22 18:15 IMPRESSION: 1. Exam positive for left lower extremity DVT involving the common femoral, superficial femoral and popliteal veins. 2. No right lower extremity DVT. 3. Bilateral popliteal cysts. This critical result was discussed with Dr. Luci Davila at 7:13 PM on 06/03/2022 and it was ascertained that the content and urgency of the report was understood at the time of direct communication. Pulmonary Perfusion Imaging 06/04/22 16:35 IMPRESSION: Very low probability of pulmonary embolism. Discharge Plan Discharge Anticipated Discharge Date/Time: 06/06/22 10:59 Patient Disposition: Xfer SNF Discharge Diagnosis: left leg dvt , stasis changes on right lower ext., copd excerebation [facility] [Outside] - 1 Week Lalit John MD [Primary Care Provider] - 1 Week Discharge Medications: New Eliquis 5 mg Tablet 10 mg PO BID Qty: 30 0RF Rx Instructions: 10 mg (2 tabs ) po twice daily until 06/10/22 , then switch to 5 mg po bid on 06/11/22 ,consider hematology eval outpatient to decide duration of AC. prednisone 20 mg tablet 20 mg PO DAILY Qty: 4 0RF Continued metoprolol succinate 100 mg Tablet Extended Release 24 Hr 100 mg PO DAILY@0600 Qty: 30 0RF Rx Instructions: TDD = 125 MG magnesium oxide 400 mg (241.3 mg magnesium) Tablet 400 mg PO DAILY@0600 Qty: 30 0RF magnesium hydroxide [Milk of Magnesia] 400 mg/5 mL Suspension 30 ml PO DAILY PRN (Reason: Constipation) Qty: 300 0RF bisacodyl [Gentle Laxative (bisacodyl)] 10 mg Suppository 10 mg [place] DAILY PRN (Reason: Constipation) Qty: 30 0RF metoprolol succinate 25 mg Tablet Extended Release 24 Hr 25 mg PO DAILY@0600 Qty: 30 0RF Rx Instructions: TDD = 125 MG acetaminophen 325 mg Tablet 650 mg PO BEDTIME dextromethorphan-guaifenesin 10-100 mg/5 mL Syrup 10 ml PO QID PRN (Reason: Cough) ascorbic acid (vitamin C) [Vitamin C] 250 mg Tablet 250 mg PO DAILY@0600 aloe vera 5,000 mg Capsule 20,000 mg PO DAILY@0600 coenzyme Q10 200 mg Capsule 200 mg PO DAILY@0600 vitamin E (dl, acetate) 180 mg (400 unit) Capsule 180 mg PO DAILY@0600 omega 9-xor-pax-fish oil [Fish Oil] 1,200 (144-216) mg Capsule 2 cap PO DAILY@0600 Lactobacillus acidoph-L.bulgar [Floranex] 1 million cell Tablet 1 tab PO DAILY@0600 Metamucil 3.4 gram/5.4 gram Powder 1 tbsp PO DAILY PRN (Reason: Constipation) Rx Instructions: mix into at least 8 oz of water or juice before administering acetaminophen 325 mg tablet 650 mg PO Q6H PRN (Reason: Pain, Mild (Pain Scale 1-3)/FEVER) ipratropium-albuterol 0.5 mg-3 mg(2.5 mg base)/3 mL Solution For Nebulization 3 ml INHALATION Q4H PRN (Reason: Wheezing) docusate sodium [Colace] 100 mg Capsule 100 mg PO DAILY PRN (Reason: Constipation) furosemide 20 mg Tablet 20 mg PO BID nystatin 100,000 unit/gram Powder 1 appl TOPICAL BID PRN (Reason: Rash) levalbuterol tartrate 45 mcg/actuation Hfa Aerosol Inhaler 1 puff INHALATION QID PRN (Reason: Shortness Of Breath) Nature Fruits Cap 1 cap PO TID@0600,1300,1700 Veggie Capsule 1 cap PO TID Vital Protein Collagen Peptide 2 ea PO DAILY Rx Instructions: mix with hot coffee or tea prednisone 20 mg tablet 20 mg PO DAILY Discontinued aspirin 81 mg Tablet,Delayed Release (Dr/Ec) 81 mg PO DAILY@0600 Discharge Orders: Discharge Order (Routine); Ordered 06/06/22 Ordered By: Gen Marino Diet: Advance to usual diet Activity on Discharge: As tolerated Stand Alone Forms: Patient Portal Discharge page Care Plan Goals: Patient was admitted to the hospital for DVT of left lower extremity and as well as question of right lower extremity cellulitis: Initially started on anticoagulation with Eliquis and antibiotics respectively, Blood culture was also sent. Subsequently right lower extremities changes look like venous stasis type, also blood culture negative, Infectious Disease also saw the patient-does not look like cellulitis, looks more venostasis changes, antibiotic discontinued, recommended leg elevation, use stockings if needed . While the patient is on Eliquis for left lower extremity DVT we will hold off aspirin, for duration of anticoagulation and further workup if needed so DVT-consider outpatient hematology evaluation. Leukocytosis improving (leukocytosis possibly related to steroid use). Leukocytosis improving, moniter cbc oupatient ckd stage 3 : seems near his baseline. COPD exacerbation: Treated with nebs and steroids seems to be improved.complete course of steriods ,continue his other copd meds. Above management discussed with patient in detail length. Health Concerns: As above. Plan of Treatment: As above. Assessment: As above. Patient Instructions: Apixaban (By mouth), Chronic Kidney Disease (DC), Deep Vein Thrombosis (DC) Discharge Date/Time: 06/06/22 13:50
[2022-06-06 12:27] LABS: COVID-19 Test Negative (Negative); IDNOW Serial# 9DB6401D
== END 2022-06-06 13:50 | disposition skilled nursing facility (03) | DRG 300 ==
LOC: HO.ED 20:29 → HO.EDOVER 23:34 → HO.IMC 06-04 15:35
PROVIDERS: Admitting Provider Internal Medicine; Emergency Provider Emergency Medicine; PCP Internal Medicine; Visit Provider Internal Medicine
DX: I82.412 Acute embolism and thrombosis of left femoral vein (principal); C85.10 Unspecified B-cell lymphoma, unspecified site; N17.9 Acute kidney failure, unspecified; Z68.43 Body mass index [BMI] 50.0-59.9, adult; L03.115 Cellulitis of right lower limb; J44.1 Chronic obstructive pulmonary disease with (acute) exacerbation; I48.20 Chronic atrial fibrillation, unspecified; I50.32 Chronic diastolic (congestive) heart failure; E66.01 Morbid (severe) obesity due to excess calories; N18.30 Chronic kidney disease, stage 3 unspecified; D72.829 Elevated white blood cell count, unspecified; I87.8 Other specified disorders of veins; T38.0X5A Adverse effect of glucocorticoids and synthetic analogues, initial encounter; Z20.822 Contact with and (suspected) exposure to COVID-19; Z74.01 Bed confinement status; Z87.891 Personal history of nicotine dependence; Z88.0 Allergy status to penicillin; Z88.1 Allergy status to other antibiotic agents; Z88.2 Allergy status to sulfonamides; Z79.01 Long term (current) use of anticoagulants; Z79.899 Other long term (current) drug therapy
CPT/HCPCS: 36415; 71045; 78580; 80048; 80053; 80076; 81003; 83605; 83690; 83735; 83880; 84443; 84484; 85025; 85027; 85610; 87040; 87502; 87635; 93005; 93970; 94640; 97162; 99285; A9540; J0696; J2543; J2920; J3370

== ENCOUNTER 2022-06-11 06:31 | Outpatient (REF) | payer MEDICARE, MEDICAID, SELFPAY ==
[2022-06-11 07:40] LABS: MANUAL DIFF FLAG NO
[2022-06-11 07:50] LABS: Basophils Percent Auto 0.1 % (0-2); Eosinophils Absolute Auto 0.2 X10*3/uL (0.0-0.4); Eosinophils Percent Auto 3.1 % (0-4); Hematocrit 42.1 % (42.0-52.0); Hemoglobin 13.6 g/dl (14.0-18.0); Imm Gran Abs Auto 0.04 X10*3/uL (0.00-0.03); Imm Gran Pct Auto 0.5 % (0.0-0.4); Lymphocytes Absolute Auto 1.6 X10*3/uL (1.2-4.9); Lymphocytes Percent Auto 20.7 % (20-40); Mean Corpuscular HGB Conc 32.3 g/dl (31.0-36.0); Mean Corpuscular Hemoglobin 27.5 pg (27.0-33.0); Mean Corpuscular Volume 85.2 fL (80.0-98.0); Mean Platelet Volume 9.6 fL (9.4-12.4); Monocytes Absolute Auto 0.5 X10*3/uL (0.1-1.2); Monocytes Percent Auto 6.4 % (2-11); Neutrophils Absolute Auto 5.3 x10*3/uL (2.0-8.3); Neutrophils Percent Auto 69.2 % (45-73); Platelet Count 156 X10*3/uL (160-400); Red Blood Count 4.94 X10*6/uL (4.60-5.80); Red Cell Distribution Width 15.3 % (11.0-16.0); White Blood Count 7.6 X10*3/uL (4.8-10.8)
[2022-06-11 08:27] LABS: Anion Gap 14 (12-20); Blood Urea Nitrogen 43 mg/dL (9-16); Calcium 8.9 mg/dL (8.4-10.2); Carbon Dioxide 28 mmol/L (22-29); Chloride 102 mmol/L (96-108); Estimated Glomerular Filt Rate 39; Glucose Fasting 87 mg/dL (60-99); Sodium 140 mmol/L (135-145)
== END 2022-06-11 06:32 | disposition home or self-care (01) ==
LOC: HO.HSH4E 06:31
PROVIDERS: Visit Provider Internal Medicine
DX: N18.9 Chronic kidney disease, unspecified (principal); Z86.718 Personal history of other venous thrombosis and embolism
CPT/HCPCS: 36415; 80048; 85025

== ENCOUNTER 2022-06-18 05:30 | Outpatient (REF) | payer MEDICARE, MEDICAID, SELFPAY ==
[2022-06-18 07:47] LABS: MANUAL DIFF FLAG NO
[2022-06-18 07:48] LABS: Basophils Percent Auto 0.5 % (0-2); Eosinophils Absolute Auto 0.2 X10*3/uL (0.0-0.4); Eosinophils Percent Auto 2.6 % (0-4); Hemoglobin 12.6 g/dl (14.0-18.0); Imm Gran Abs Auto 0.02 X10*3/uL (0.00-0.03); Imm Gran Pct Auto 0.3 % (0.0-0.4); Lymphocytes Absolute Auto 1.2 X10*3/uL (1.2-4.9); Lymphocytes Percent Auto 15.6 % (20-40); Mean Corpuscular HGB Conc 33.2 g/dl (31.0-36.0); Mean Corpuscular Hemoglobin 28.6 pg (27.0-33.0); Mean Corpuscular Volume 86.2 fL (80.0-98.0); Mean Platelet Volume 10.2 fL (9.4-12.4); Monocytes Absolute Auto 0.6 X10*3/uL (0.1-1.2); Monocytes Percent Auto 7.8 % (2-11); Neutrophils Absolute Auto 5.8 x10*3/uL (2.0-8.3); Neutrophils Percent Auto 73.2 % (45-73); Platelet Count 156 X10*3/uL (160-400); Red Blood Count 4.41 X10*6/uL (4.60-5.80); Red Cell Distribution Width 15.1 % (11.0-16.0); White Blood Count 7.8 X10*3/uL (4.8-10.8)
[2022-06-18 08:11] LABS: Anion Gap 15 (12-20); Blood Urea Nitrogen 40 mg/dL (9-16); Calcium 8.9 mg/dL (8.4-10.2); Carbon Dioxide 26 mmol/L (22-29); Chloride 103 mmol/L (96-108); Estimated Glomerular Filt Rate 42; Glucose Fasting 109 mg/dL (60-99); Potassium 4.2 mmol/L (3.3-5.1); Sodium 140 mmol/L (135-145)
== END 2022-06-18 05:31 | disposition home or self-care (01) ==
LOC: HO.HSH4E 05:30
PROVIDERS: Visit Provider Internal Medicine
DX: N18.9 Chronic kidney disease, unspecified (principal); R21 Rash and other nonspecific skin eruption
CPT/HCPCS: 36415; 80048; 85025

== ENCOUNTER 2022-08-19 06:16 | Outpatient (REF) | payer MEDICARE, MEDICAID, SELFPAY ==
[2022-08-19 06:59] LABS: B Type Natriuretic Peptide 51 pg/mL (<100); Estimated Average Glucose 117 mg/dL; Hemoglobin A1c % 5.7 %
[2022-08-19 07:23] LABS: Alanine Aminotransferase 16 U/L (0-40); Albumin Level 3.5 g/dL (3.5-5.0); Alkaline Phosphatase 47 U/L (39-117); Anion Gap 12 (12-20); Aspartate Amino Transferase 15 U/L (5-37); Bilirubin Total 0.5 mg/dL (0.0-1.0); Blood Urea Nitrogen 33 mg/dL (9-16); Calcium 8.8 mg/dL (8.4-10.2); Carbon Dioxide 25 mmol/L (22-29); Chloride 109 mmol/L (96-108); Estimated Glomerular Filt Rate 47; Glucose Random 88 mg/dL (60-115); Potassium 4.1 mmol/L (3.3-5.1); Sodium 142 mmol/L (135-145); Thyroid Stimulating Hormone 2.31 uIU/mL (0.32-4.0); Total Protein 5.1 g/dL (6.5-8.0)
== END 2022-08-19 06:17 | disposition home or self-care (01) ==
LOC: HO.HSH4E 06:16
PROVIDERS: Visit Provider Internal Medicine
DX: Z13.89 Encounter for screening for other disorder (principal)
CPT/HCPCS: 36415; 80053; 83036; 83880; 84443

== ENCOUNTER 2022-08-27 05:39 | Outpatient (REF) | payer MEDICARE, MEDICAID, SELFPAY ==
[2022-08-27 11:23] LABS: MANUAL DIFF FLAG NO
[2022-08-27 11:49] LABS: Basophils Percent Auto 0.6 % (0-2); Eosinophils Absolute Auto 0.2 X10*3/uL (0.0-0.4); Eosinophils Percent Auto 3.7 % (0-4); Hematocrit 36.9 % (42.0-52.0); Hemoglobin 11.7 g/dl (14.0-18.0); Imm Gran Abs Auto 0.01 X10*3/uL (0.00-0.03); Imm Gran Pct Auto 0.2 % (0.0-0.4); Lymphocytes Absolute Auto 1.3 X10*3/uL (1.2-4.9); Lymphocytes Percent Auto 23.6 % (20-40); Mean Corpuscular HGB Conc 31.7 g/dl (31.0-36.0); Mean Corpuscular Hemoglobin 28.1 pg (27.0-33.0); Mean Corpuscular Volume 88.5 fL (80.0-98.0); Mean Platelet Volume 10.3 fL (9.4-12.4); Monocytes Absolute Auto 0.8 X10*3/uL (0.1-1.2); Monocytes Percent Auto 13.8 % (2-11); Neutrophils Absolute Auto 3.2 x10*3/uL (2.0-8.3); Neutrophils Percent Auto 58.1 % (45-73); Platelet Count 145 X10*3/uL (160-400); Red Blood Count 4.17 X10*6/uL (4.60-5.80); Red Cell Distribution Width 15.3 % (11.0-16.0); White Blood Count 5.4 X10*3/uL (4.8-10.8)
== END 2022-08-27 05:40 | disposition home or self-care (01) ==
LOC: HO.HSH4E 05:39
PROVIDERS: Visit Provider Internal Medicine
DX: D64.9 Anemia, unspecified (principal)
CPT/HCPCS: 36415; 85025

== ENCOUNTER 2022-09-05 12:45 | Inpatient (IN) | payer OTHER, MEDICARE, MEDICAID, SELFPAY ==
[2022-09-05] VITALS (7 sets, daily range): BP systolic 110–151; BP diastolic 65–80; PULSE 74–102; RESP 20–29; TEMP 36.3–37.3; O2SAT 91–98; BMI 60.5
--- NOTE | ~2022-09-05 | XR_ITS ---
EXAMINATION: XR CHEST CLINICAL INFORMATION: SOB. COMPARISON: Chest 06/03/2022 TECHNIQUE: Frontal view of the chest was obtained. FINDINGS: The lungs are well-expanded with patchy opacity seen right upper lobe likely developing infiltrate or atelectasis. Rest of lungs are clear. The heart size and pulmonary vascularity is normal. There is degenerative arthritic changes right shoulder with mild deformity right humeral head XR/XR chest 1V IMPRESSION: Patchy opacity right upper lobe likely developing infiltrate or atelectasis. It appears new since 06/03/2022 exam.
--- NOTE | 2022-09-05 12:52 | ECG_ITS ---
Test Reason : SOB Blood Pressure : / mmHG Vent. Rate : 105 BPM Atrial Rate : 000 BPM P-R Int : 000 ms QRS Dur : 114 ms QT Int : 362 ms P-R-T Axes : 000 -52 034 degrees QTc Int : 478 ms Atrial fibrillation with rapid ventricular response Left anterior fascicular block Septal infarct , age undetermined Abnormal ECG When compared with ECG of 04-JUN-2022 15:39, Septal infarct is now Present ST elevation now present in Anterior leads T wave inversion no longer evident in Inferior leads Referred By: Generic ED Physician Electronically Signed By:TIFFANIE PEDROZA MD
[2022-09-05] MEDS: Albuterol Sulfate (0.083%) 2.5 MG/3 ML VIAL.NEB 10 MG INHALE (13:05)
[2022-09-05 13:11] LABS: MANUAL DIFF FLAG NO
[2022-09-05 13:12] LABS: Basophils Percent Auto 0.4 % (0-2); Eosinophils Absolute Auto 0.2 X10*3/uL (0.0-0.4); Eosinophils Percent Auto 3.9 % (0-4); Imm Gran Abs Auto 0.01 X10*3/uL (0.00-0.03); Imm Gran Pct Auto 0.2 % (0.0-0.4); Lymphocytes Absolute Auto 0.5 X10*3/uL (1.2-4.9); Lymphocytes Percent Auto 10.6 % (20-40); Mean Corpuscular HGB Conc 31.6 g/dl (31.0-36.0); Mean Corpuscular Hemoglobin 27.1 pg (27.0-33.0); Mean Platelet Volume 8.7 fL (9.4-12.4); Monocytes Absolute Auto 0.8 X10*3/uL (0.1-1.2); Monocytes Percent Auto 16.8 % (2-11); Neutrophils Absolute Auto 3.3 x10*3/uL (2.0-8.3); Neutrophils Percent Auto 68.1 % (45-73); Platelet Count 141 X10*3/uL (160-400); Red Blood Count 4.42 X10*6/uL (4.60-5.80); Red Cell Distribution Width 15.2 % (11.0-16.0); White Blood Count 4.9 X10*3/uL (4.8-10.8)
--- NOTE | 2022-09-05 13:21 | PC.NURSE ---
patient a&ox3, lungs in/ex wheezing heard by this nurse, per RT they were also able to hear crackles, pt able to speak in full sentences but noted to using accessory muscles, 3+ pitting edema to bilateral lower extremities, structural analyst applied- afib on monitor, vitals otherwise stable, RT at bedside doing updrafts, xray performed, iv inserted, labs drawn, will have tech do ekg, call viveros within reach, will continue to monitor.
--- NOTE | 2022-09-05 13:38 | ED_ITS ---
HPI - General Adult General Chief complaint: Dyspnea Stated complaint: SOB X'S DAYS FROM SNF PER EMS Time Seen by Provider: 09/05/22 12:55 Source: patient and EMS Mode of arrival: EMS Limitations: no limitations History of Present Illness HPI narrative: 77-year-old male from [facility] resident with past medical history of B-cell lymphoma, chronic AFib, COPD, stage III CKD, osteoarthritis, DVT on Eliquis. presented to the hospital was shortness of breath and increased wheezing, patient [facility] not [facility] the [facility]. Had recent admission for COPD and acute renal failure. [facility] for increased requirement of bronchodilator and increases difficulty breathing. Related Data Home Medications Medication Instructions Recorded Confirmed Lactobacillus acidoph-L.bulgaricus 1 tab PO DAILY@59902/11/22 06/03/22 1 million cell tablet (Floranex) acetaminophen 325 mg tablet 650 mg PO BEDTIME 02/11/22 06/03/22 acetaminophen 325 mg tablet 650 mg PO Q6H PRN Pain, Mild (Pain 02/11/22 06/03/22 Scale 1-3)/FEVER aloe vera 5,000 mg capsule 20,000 mg PO DAILY@0602/11/22 06/03/22 ascorbic acid (vitamin C) 250 mg 250 mg PO DAILY@59902/11/22 06/03/22 tablet (Vitamin C) coenzyme Q10 200 mg capsule 200 mg PO DAILY@59902/11/22 06/03/22 dextromethorphan-guaifenesin 10 10 ml PO QID PRN Cough 02/11/22 06/03/22 mg-100 mg/5 mL oral syrup omega 1-jkk-ige-fish oil 1,200 mg 2 cap PO DAILY@0602/11/22 06/03/22 (144 mg-216 mg) capsule (Fish Oil) psyllium husk 3.4 gram/5.4 gram 1 tbsp PO DAILY PRN Constipation 02/11/22 06/03/22 oral powder (Metamucil) vitamin E (dl, acetate) 180 mg 180 mg PO DAILY@0600 02/11/22 06/03/22 (400 unit) capsule Nature Fruits Cap 1 cap PO TID@0600,1300,1700 06/03/22 06/03/22 Veggie Capsule 1 cap PO TID 06/03/22 06/03/22 Vital Protein Collagen Peptide 2 ea PO DAILY 06/03/22 06/03/22 docusate sodium 100 mg capsule 100 mg PO DAILY PRN Constipation 06/03/22 06/03/22 (Colace) furosemide 20 mg tablet 20 mg PO BID 06/03/22 06/03/22 ipratropium 0.5 mg-albuterol 3 mg 3 ml inhalation Q4H PRN Wheezing 06/03/22 06/03/22 (2.5 mg base)/3 mL nebulization soln levalbuterol tartrate 45 1 puff inhalation QID PRN 06/03/22 06/03/22 mcg/actuation aerosol inhaler Shortness Of Breath nystatin 100,000 unit/gram topical 1 appl topical BID PRN Rash 06/03/22 06/03/22 powder prednisone 20 mg tablet 20 mg PO DAILY 06/03/22 06/03/22 Previous Rx's Medication Instructions Recorded bisacodyl 10 mg rectal suppository 10 mg ME DAILY PRN Constipation 06/05/20 (Gentle Laxative (bisacodyl)) #30 ea magnesium hydroxide 400 mg/5 mL 30 ml PO DAILY PRN Constipation 06/05/20 oral suspension (Milk of Magnesia) #300 mL magnesium oxide 400 mg (241.3 mg 400 mg PO DAILY@0600 #30 tabs 06/05/20 magnesium) tablet metoprolol succinate 100 mg 100 mg PO DAILY@0600 #30 tabs 06/05/20 tablet,extended release 24 hr metoprolol succinate 25 mg 25 mg PO DAILY@0600 #30 tabs 06/05/20 tablet,extended release 24 hr apixaban 5 mg tablet (Eliquis) 10 mg PO BID #30 tabs 06/06/22 prednisone 20 mg tablet 20 mg PO DAILY #4 tabs 06/06/22 Allergies Allergy/AdvReac Type Severity Reaction Status Date / Time cephalexin [From KEFLEX] Allergy Unknown UNKNOWN Verified 02/11/22 16:32 meropenem [MEROPENEM] Allergy Unknown UNKNOWN Verified 05/24/20 03:36 Penicillins [PENICILLINS] Allergy Unknown UNKNOWN Verified 05/24/20 03:36 sulfamethoxazole Allergy Unknown UNKNOWN Verified 06/04/22 01:15 [From BACTRIM] trimethoprim [From BACTRIM] Allergy Unknown UNKNOWN Verified 05/24/20 03:36 Review of Systems Review of Systems: All other systems are reviewed and are negative Constitutional: Reports as per HPI and Reports no additional constitutional complaints Eyes: Reports as per HPI and Reports no additional eye complaints Reports system reviewed and no additional complaints, except as documented Cardiovascular: Reports as per HPI and Reports no additional cardiovascular complaints Respiratory: Reports as per HPI and Reports no additional respiratory complaints Gastrointestinal: Reports as per HPI and Reports no additional gastrointestinal complaints Genitourinary: Reports no additional female genitourinary complaints Musculoskeletal: Reports no additional musculoskeletal complaints Skin/Breast: Reports system reviewed and no additional complaints, except as docu Psychiatric: Reports no additional psychiatric complaints Endocrine: Reports no additional endocrine complaints Hematologic/Lymphatic: Reports no additional hematologic/lymphatic complaints Allergic/Immunologic: Reports no additional allergic/immunologic complaints Reports system reviewed and no additional complaints, except as documented and Reports Abnormal speech present. [facility] Past Medical History Medical History Anemia, unspecified B-cell lymphoma Cellulitis of leg Chronic a-fib COPD (chronic obstructive pulmonary disease) Dermatitis Edema Hammer toes of both feet Hearing loss Impaired fasting glucose Mild cognitive impairment Morbid obesity Nail dystrophy Osteoarthritis Pain in right shoulder Stage 3 chronic kidney disease Unspecified atherosclerosis of [place] arteries of extremities, bilateral legs Surgical History No pertinent past surgical history Family History Family History Other No family history of coronary artery disease Social History Social History Household Members: Other Housing: [facility] Do you presently have visiting nurse or other home services: No Alcohol intake: never Patient Tobacco Use Status: Former Tobacco user Tobacco use type: Cigarette Smoked in Last 30 Days: No Use of substances other than those prescribed or required for medical reasons: No Advance Directives: Yes Advance Directives on File: Yes Advance Directives Date on File: 06/04/22 service: Yes Current occupational status: retired Physical Exam ED Vital Signs: Vital Signs - 24 hr 09/05/22 13:06 09/05/22 13:10 09/05/22 13:18 Temperature 98.5 F Pulse Rate 99 81 Pulse Rate [Left Apical] 94 Respiratory Rate 29 H 28 H 28 H Blood Pressure 130/65 Pulse Oximetry 96 Oxygen Delivery Method 09/05/22 14:00 Temperature 99.1 F Pulse Rate 102 H Pulse Rate [Left Apical] Respiratory Rate 28 H Blood Pressure 149/80 H Pulse Oximetry 95 Oxygen Delivery Method Room Air BMI result Body Mass Index 60.5 Vital signs have been reviewed as appeared to be correct. Blood pressure uvaldo l. Heart rate normal. Respiration rate normal. Temperature normal. Oxygen saturation normal. Appearance: Alert. Oriented X3. No acute distress. Head: Normal external exam. Normocephalic. Atraumatic. No Watson signs noted. No raccoon eyes noted Eyes: PERRLA. EOMI. Conjunctiva and sclera normal. Eyelids normal. ENT: TM's Normal. Pharynx normal. Uvula midline. Moist mucous membranes. No trismus noted. No drooling noted. No muffled voice noted. Neck: Normal inspection. Neck supple. FROM. No adenopathy. Thyroid Normal. No meningeal signs. No neck mass noted. CVS: Normal heart rate and rhythm. Heart sound normal. No murmurs noted. Pulses normal throughout. Respiratory: No respiratory distress. Painless inspiration. Breath sounds normal. Diffuse expiratory wheezing with prolonged expiration.. Chest nontender. No accessory muscle usage noted or decreased air movement noted. Abdomen: Soft and nontender. Bowel sounds normal in all 4 quadrants. No distent ion noted. No organomegaly noted. No visible injury noted. Back: No CVA tenderness. Full range of motion noted. Skin: Skin warm and dry. Normal skin color. Normal skin turgor. No rashes/lesions/lacerations noted. Extremities: No lower extremity edema. Extremities exhibit normal range of mot ion. Extremities nontender. Neuro: Oriented X 3. Cranial nerve exam: II-XII are grossly intact No motor deficit. No sensory deficit. Reflexes normal. Course Reevaluation(s) Reevaluation #1: Infection suspected, patient met criteria for SIRS by elevated HR and RR. Patient is very hard IV access to withdrawal lactic acid and blood culture, antibiotic was ordered, chronic elevation of BUN/creatinine not due to severe sepsis or septic shock, no lactic acidosis. Time: 15:49 Medications Administered Generic Name Dose Route Start Last Admin Trade Name Freq PRN Reason Stop Dose Admin Sodium Chloride 1,000 mls @ 500 mls/hr 09/05/22 14:48 09/05/22 14:55 Ns IV 09/05/22 16:47 500 mls/hr .Q2H ONE Administration Discontinued Medications Generic Name Dose Route Start Last Admin Trade Name Pete PRN Reason Stop Dose Admin Albuterol Sulfate 10 mg 09/05/22 12:55 09/05/22 13:05 Albuterol Sulfate (0.083%) 2.5 Mg/3 Ml Vial.Neb INHALE 09/05/22 12:56 10 mg ONCE ONE Administration Medical Decision Making Differential Diagnosis Differential Diagnoses: The differential diagnosis associated with the presentation includes (COPD exacerbation, pneumonia, electrolyte disturbance, severe anemia.) Admission/Observation Consideration of admission/observation: Escalation of care including admission/observation considered Consult Healthcare Provider Management of the patient was discussed with: Hospitalist Lab Data MDM Lab Attestation statement: I reviewed the patient's lab results. 09/05/22 13:08 09/05/22 13:08 Labs: Lab Results 09/05/22 09/05/22 09/05/22 Range/Units 13:08 13:08 13:08 WBC 4.9 (4.8-10.8) X10*3/uL RBC 4.42 L (4.60-5.80) X10*6/uL Hgb 12.0 L (14.0-18.0) g/dl Hct 38.0 L (42.0-52.0) % MCV 86.0 (80.0-98.0) fL MCH 27.1 (27.0-33.0) pg MCHC 31.6 (31.0-36.0) g/dl RDW 15.2 (11.0-16.0) % Plt Count 141 L (160-400) X10*3/uL MPV 8.7 L (9.4-12.4) fL Immature Gran % (Auto) 0.2 (0.0-0.4) % Neut % (Auto) 68.1 (45-73) % Lymph % (Auto) 10.6 L (20-40) % [place] % (Auto) 16.8 H (2-11) % Eos % (Auto) 3.9 (0-4) % Baso % (Auto) 0.4 (0-2) % Lymph # (Auto) 0.5 L (1.2-4.9) X10*3/uL [place] # (Auto) 0.8 (0.1-1.2) X10*3/uL Eos # (Auto) 0.2 (0.0-0.4) X10*3/uL Baso # (Auto) 0.0 (0.0-0.2) X10*3/uL Abs Immat Gran (auto) 0.01 (0.00-0.03) X10*3/uL Absolute Neuts (auto) 3.3 (2.0-8.3) x10*3/uL Absolute Nucleated RBC 0.000 (0.0-0.012) X10*3/uL Nucleated RBC % (auto) 0.0 (0.0-0.2) /100WBC Sodium 140 (135-145) mmol/L Potassium 4.9 (3.3-5.1) mmol/L Chloride 106 (96-108) mmol/L Carbon Dioxide 25 (22-29) mmol/L Anion Gap 14 (12-20) BUN 32 H (9-16) mg/dL Creatinine 1.49 H (0.5-1.4) mg/dL Estim Creat Clear Calc 67.5 Estimated GFR 46 Random Glucose 154 H (60-115) mg/dL Calcium 8.8 (8.4-10.2) mg/dL Troponin I High Sens 22.7 (<3.5-35.0) ng/L B-Natriuretic Peptide (<100) pg/mL 09/05/22 Range/Units 13:08 WBC (4.8-10.8) X10*3/uL RBC (4.60-5.80) X10*6/uL Hgb (14.0-18.0) g/dl Hct (42.0-52.0) % MCV (80.0-98.0) fL MCH (27.0-33.0) pg MCHC (31.0-36.0) g/dl RDW (11.0-16.0) % Plt Count (160-400) X10*3/uL MPV (9.4-12.4) fL Immature Gran % (Auto) (0.0-0.4) % Neut % (Auto) (45-73) % Lymph % (Auto) (20-40) % [place] % (Auto) (2-11) % Eos % (Auto) (0-4) % Baso % (Auto) (0-2) % Lymph # (Auto) (1.2-4.9) X10*3/uL [place] # (Auto) (0.1-1.2) X10*3/uL Eos # (Auto) (0.0-0.4) X10*3/uL Baso # (Auto) (0.0-0.2) X10*3/uL Abs Immat Gran (auto) (0.00-0.03) X10*3/uL Absolute Neuts (auto) (2.0-8.3) x10*3/uL Absolute Nucleated RBC (0.0-0.012) X10*3/uL Nucleated RBC % (auto) (0.0-0.2) /100WBC Sodium (135-145) mmol/L Potassium (3.3-5.1) mmol/L Chloride (96-108) mmol/L Carbon Dioxide (22-29) mmol/L Anion Gap (12-20) BUN (9-16) mg/dL Creatinine (0.5-1.4) mg/dL Estim Creat Clear Calc Estimated GFR Random Glucose (60-115) mg/dL Calcium (8.4-10.2) mg/dL Troponin I High Sens (<3.5-35.0) ng/L B-Natriuretic Peptide 51 (<100) pg/mL Independent Interpretation I performed an independent interpretation of an: Plain X-Ray (Right upper lobe pneumonia.) Radiology Impression Discussion of test interpretation with radiology: I have reviewed the radiologist's reading. Discharge Plan Discharge Clinical Impression: COPD exacerbation, Pneumonia Patient Disposition: Admitted As Inpatient
[2022-09-05 13:40] LABS: Anion Gap 14 (12-20); Blood Urea Nitrogen 32 mg/dL (9-16); Calcium 8.8 mg/dL (8.4-10.2); Carbon Dioxide 25 mmol/L (22-29); Chloride 106 mmol/L (96-108); Creatinine Clr Calc Pharmacy 67.5; Estimated Glomerular Filt Rate 46; Glucose Random 154 mg/dL (60-115); Potassium 4.9 mmol/L (3.3-5.1); Sodium 140 mmol/L (135-145); Troponin-I High Sensitivity 22.7 ng/L (<3.5-35.0)
[2022-09-05 13:41] LABS: B Type Natriuretic Peptide 51 pg/mL (<100)
--- NOTE | 2022-09-05 14:33 | PC.NURSE ---
pt AOx3, afib on monitor HR in 104. Updraft finished, in/exp wheezes cont to be heard in lungs. Pressure stable. Tempt 99.1 will cont to letty
[2022-09-05] MEDS: 0.9 % Sodium Chloride 1,000 ML 500 ML IV (14:55)
[2022-09-05 15:48] LABS: Lactic Acid 1.7 mmol/L (0.5-2.0)
--- NOTE | 2022-09-05 16:05 | PC.NURSE ---
patient difficult stick, attempted to draw 2nd set of cultures x3 without success, provider notified and phlebotomy called
--- NOTE | 2022-09-05 16:37 | PM.IMHP ---
History of Present Illness Date of Service: 09/05/22 Chief Complaint: Shortness of breath 77-year-old [facility] house with history of B-cell lymphoma, chronic AFib, COPD, stage III CKD, osteoarthritis, presents to the hospital with shortness of breath over several and has been managed with updraft but getting little relief. He has diffuse wheeze, marked lower extremity swelling but normal BNP, CXR suggest pneumonia. He has no fever and WBC is normal.? He is treated with Albuterol updraft, IV antibiotics Review of Systems Review of Systems: Gen: no fever Resp: + sob, - cough CV: no chest, no PARADA, + leg edema GI: No n/v, no abd pain Neuro: No confusion Yes all other systems are reviewed and are negative [facility] Medical History Anemia, unspecified B-cell lymphoma Cellulitis of leg Chronic a-fib COPD (chronic obstructive pulmonary disease) Dermatitis Edema Hammer toes of both feet Hearing loss Impaired fasting glucose Mild cognitive impairment Morbid obesity Nail dystrophy Osteoarthritis Pain in right shoulder Stage 3 chronic kidney disease Unspecified atherosclerosis of [place] arteries of extremities, bilateral legs Family History Other No family history of coronary artery disease Surgical History No pertinent past surgical history Social History Household Members: Other Housing: [employer] Do you presently have visiting nurse or other home services: No Alcohol intake: never Patient Tobacco Use Status: Former Tobacco user Tobacco use type: Cigarette Smoked in Last 30 Days: No Patient Interested in Nicotine Replacement: No Patient Given Instructions on How to Stop Smoking: No Second Hand Smoke Exposure: No Use of substances other than those prescribed or required for medical reasons: No Currently Displaying Signs/Symptoms of Drug Intoxication Withdrawal: No Any prior treatment program specific to substance use: No Have you been hit, kicked, punched, or otherwise hurt by someone within the past year? If so, by whom?: No Do you feel safe in your current relationship?: Yes Is there a partner from a previous relationship who is making you feel unsafe now?: No Are you made to feel afraid or neglected: No Advance Directives: Yes Advance Directives on File: Yes Advance Directives Date on File: 06/04/22 Do you have thoughts of harming others: None Do you have a plan to hurt others: No Plan Recently lost weight without trying: No How much weight loss: Not applicable Eating poorly because of decreased appetite: No Nutrition screen score: 0 Nutrition Risks: No Nutritional Risk Poor oral hygiene: No service: Yes Current occupational status: retired Meds Allergies Allergy/AdvReac Type Severity Reaction Status Date / Time cephalexin [From KEFLEX] Allergy Unknown UNKNOWN Verified 02/11/22 16:32 furosemide [From Lasix] Allergy Unknown Rash Verified 09/06/22 06:37 meropenem [MEROPENEM] Allergy Unknown UNKNOWN Verified 05/24/20 03:36 Penicillins [PENICILLINS] Allergy Unknown UNKNOWN Verified 05/24/20 03:36 sulfamethoxazole Allergy Unknown UNKNOWN Verified 06/04/22 01:15 [From BACTRIM] trimethoprim [From BACTRIM] Allergy Unknown UNKNOWN Verified 05/24/20 03:36 Active Medications: Current Medications Sodium Chloride (Ns) 1,000 mls @ 500 mls/hr IV .Q2H ONE Stop: 09/05/22 16:47 Last Admin: 09/05/22 14:55 Dose: 500 mls/hr Home Medications Medication Instructions Recorded Confirmed Last Taken Type Lactobacillus acidoph-L.bulgaricus 1 tab PO DAILY@59902/11/22 09/05/22 09/05/22 History 1 million cell tablet (Floranex) acetaminophen 325 mg tablet 650 mg PO BEDTIME 02/11/22 09/05/22 09/04/22 History acetaminophen 325 mg tablet 650 mg PO Q6H PRN Pain, Mild (Pain 02/11/22 09/05/22 09/05/22 History Scale 1-3)/FEVER aloe vera 5,000 mg capsule 20,000 mg PO DAILY@59902/11/22 09/05/22 09/05/22 History ascorbic acid (vitamin C) 250 mg 500 mg PO DAILY@59902/11/22 09/05/22 09/05/22 History tablet (Vitamin C) coenzyme Q10 200 mg capsule 200 mg PO DAILY@59902/11/22 09/05/22 09/05/22 History dextromethorphan-guaifenesin 10 10 ml PO QID PRN Cough 02/11/22 09/05/22 Unknown History mg-100 mg/5 mL oral syrup omega 2-oth-cxv-fish oil 1,200 mg 2 cap PO DAILY@0600 02/11/22 09/05/22 09/05/22 History (144 mg-216 mg) capsule (Fish Oil) psyllium husk 3.4 gram/5.4 gram 1 tbsp PO DAILY PRN Constipation 02/11/22 09/05/22 Unknown History oral powder (Metamucil) vitamin E (dl, acetate) 180 mg 180 mg PO DAILY@0600 02/11/22 09/05/22 09/05/22 History (400 unit) capsule Nature Fruits Cap 1 cap PO BID 06/03/22 09/05/22 09/05/22 History Vital Protein Collagen Peptide 2 ea PO DAILY 06/03/22 09/05/22 09/05/22 History docusate sodium 100 mg capsule 100 mg PO DAILY PRN Constipation 06/03/22 09/05/22 Unknown History (Colace) ipratropium 0.5 mg-albuterol 3 mg 3 ml inhalation Q4H PRN Wheezing 06/03/22 09/05/22 08/05/22 History (2.5 mg base)/3 mL nebulization soln prednisone 5 mg tablet 5 mg PO DAILY 09/05/22 09/05/22 09/05/22 History Physical Exam Vital Signs and Narrative: Vital Signs: Last Vital Signs Temp 99.1 F 09/05/22 14:00 Pulse 102 H 09/05/22 14:00 Resp 28 H 09/05/22 14:00 BP 149/80 H 09/05/22 14:00 Pulse Ox 95 09/05/22 14:00 O2 Del Method Room Air 09/05/22 14:00 BMI result Body Mass Index 60.5 Const: Other: Constitutional: Alert, in no distress, overweight. Mental Status: Oriented to person, place and time. Eyes: Pupils are equal, round and reactive to light. Ear, Nose and Throat: Oropharynx clear, mucous membranes moist. Ears and nose without eformities. Respiratory: diffuse insp/ex wheezes Cardiovascular: S1 S2 regular. No murmurs, rubs or gallops. 3+ pitting edema in legs Gastrointestinal: Abdomen soft, non-tender, non-distended. Normal bowel sounds.? Neurologic: Cranial nerves II-XII grossly intact. No focal neurological deficits. Moves all extremities spontaneously.? Skin: No rashes or lesions.? chronic venous stasis on legs Musculoskeletal: No cyanosis or clubbing. Psychiatric: Normal mood and affect? Results Labs 09/05/22 13:08 09/05/22 13:08 Labs: Laboratory Results - last 24 hr 09/05/22 09/05/22 09/05/22 13:08 13:08 13:08 MCV 86.0 MCH 27.1 MCHC 31.6 RDW 15.2 Plt Count 141 L MPV 8.7 L Immature Gran % (Auto) 0.2 Neut % (Auto) 68.1 Lymph % (Auto) 10.6 L [place] % (Auto) 16.8 H Eos % (Auto) 3.9 Baso % (Auto) 0.4 Lymph # (Auto) 0.5 L [place] # (Auto) 0.8 Eos # (Auto) 0.2 Baso # (Auto) 0.0 Abs Immat Gran (auto) 0.01 Absolute Neuts (auto) 3.3 Absolute Nucleated RBC 0.000 Nucleated RBC % (auto) 0.0 Anion Gap 14 Estim Creat Clear Calc 67.5 Estimated GFR 46 Random Glucose 154 H Lactic Acid Calcium 8.8 Troponin I High Sens 22.7 B-Natriuretic Peptide 09/05/22 09/05/22 13:08 15:14 MCV MCH MCHC RDW Plt Count MPV Immature Gran % (Auto) Neut % (Auto) Lymph % (Auto) [place] % (Auto) Eos % (Auto) Baso % (Auto) Lymph # (Auto) [place] # (Auto) Eos # (Auto) Baso # (Auto) Abs Immat Gran (auto) Absolute Neuts (auto) Absolute Nucleated RBC Nucleated RBC % (auto) Anion Gap Estim Creat Clear Calc Estimated GFR Random Glucose Lactic Acid 1.7 Calcium Troponin I High Sens B-Natriuretic Peptide 51 Imaging Radiologist's Impressions: Impressions Chest X-Ray 09/05/22 13:22 IMPRESSION: Patchy opacity right upper lobe likely developing infiltrate or atelectasis. It appears new since 06/03/2022 exam. Assessment and Plan (1) COPD exacerbation: Status: Acute Plan 77 year male with history history of B-cell lymphoma, chronic AFib, COPD, stage III C here with sob and found to have pneumonia, COPD with acute exacerbatrion Pneumonia--no sepsis, started on Levaquin and will continue,monitor resp status COPD exacerbation--Updraft scheduled and PRN, steroid Marked leg edema, nl BNP but concern of heart failure IV lasix x 1and monitor urine output 3. unspecified AFIB controlled, reason unclear 4. CKD3 , stable 5. Morbid obesity weight loss recommended as may affect other health issues DVT prophylaxis Heparin Time Spent With Patient Time: Total time managing care of this patient today ____ minutes. Quality Stroke Does the patient have a stroke diagnosis?: No VTE Prior VTE?: No VTE Risk Level:: Medical - moderate - high VTE Device Contraindication: Treatment Not Indicated VTE Drug Contraindication: N/A - Med Ordered
[2022-09-05] MEDS: levoFLOXacin/D5W 750 MG/150 ML PIGGYBACK 100 MG IV (17:00)
[2022-09-05] MEDS: methylPREDNISolone Sod Succ 40 MG/ML VIAL IVPUSH ×2 (17:14→23:10)
[2022-09-05] MEDS: Furosemide 40 MG/4 ML VIAL IVPUSH (17:15)
--- NOTE | 2022-09-05 17:20 | PHA.MEDREC ---
Pharmacy Consult ? Medication Reconciliation Pharmacy has completed the medication reconciliation. Patient came from [facility] with a medication list. Fidelina Armando, KaminiD
[2022-09-05] MEDS: Albuterol Sulfate (0.083%) 2.5 MG/3 ML VIAL.NEB INHALE (20:13)
[2022-09-05] MEDS: Acetaminophen 325 MG TABLET 650 MG PO (21:30)
[2022-09-05] MEDS: 0.9 % Sodium Chloride Flush 3 ML SYRINGE IVFLUSH (21:32)
[2022-09-05] MEDS: Lidocaine 4 % Patch ADH..PATCH 1 PATCH TRANSDERMA (23:08)
[2022-09-06] VITALS (10 sets, daily range): BP systolic 133–158; BP diastolic 66–96; PULSE 75–94; RESP 16–28; TEMP 36–37; O2SAT 94–96
--- NOTE | 2022-09-06 | ECG_ITS ---
Test Reason : tachycardia Blood Pressure : / mmHG Vent. Rate : 095 BPM Atrial Rate : 000 BPM P-R Int : 000 ms QRS Dur : 114 ms QT Int : 414 ms P-R-T Axes : 000 -47 013 degrees QTc Int : 520 ms Atrial fibrillation Left anterior fascicular block Moderate voltage criteria for LVH, may be normal variant ( R in aVL , Oleksandr product ) Septal infarct (cited on or before 05-SEP-2022) Prolonged QT Abnormal ECG When compared with ECG of 05-SEP-2022 13:38, Serial changes of evolving Septal infarct Present Referred By: Hossein Holt Electronically Signed By:TIFFANIE PEDROZA MD
[2022-09-06] MEDS: Heparin Sodium,Porcine 5,000 UNIT/ML VIAL 5000 UNIT SUBCUT (06:04)
--- NOTE | 2022-09-06 06:37 | MHC.PIE ---
p; [facility] called for update on pt, merritt informed on lasix given in ed. merritt informed this typewriter tester pt allergic to lasix - pt know for developing rash few weeks after lasix administration. i; allergy updated. e; will cont to monitor
--- NOTE | 2022-09-06 07:00 | CA_ITS ---
Transthoracic Echocardiogram Patient (Last, First, Middle): Miguel Ángel Bates T Gender: Male Date of : 1945 Age: 77 Procedure Date: 09/06/2022 Procedure Type: Transthoracic Echocardiogram Location: [facility] – [place] Height: 172. cm Weight: 180.08 kg BSA: 2.73 m2 Heart Rate: 85 bpm BP: 158 / 96 mmHg Dental Financial Coordinator: OLE Referring MD: Hossein Garcia MD Symptoms: Heart failure Study Quality: Technically Difficult/Contrast ECG Rhythm: Atrial Fibrillation Conclusions: - 1. Normal LV systolic function 2. Mildly dilated left atrium 3. Early mild aortic stenosis 4. Normal RV systolic pressure 5. Mildly dilated ascending aorta 6. No gross pericardial effusion Findings Procedure Information Contrast agent, definity, is being given per protocol without apparent complications. Left Ventricle Normal left ventricular size, thickness, and systolic function. The visually estimated ejection fraction is between 65-70%. Diastolic function is indeterminate on the basis of available data. Normal left ventricular filling pressures. Right Ventricle The right ventricle was not well visualized. There is normal right ventricular systolic function. Atria The left atrium is mildly dilated. Interatrial shunt cannot be excluded. The right atrium was not well visualized. Aortic Valve There is mild calcification of the aortic valve. There is mild thickening of the aortic valve. There is mild aortic valve stenosis. The peak aortic gradient is 16 mmHg.The mean gradient is 10 mmHg. There is no aortic valve regurgitation. Mitral Valve The mitral valve was not well visualized. There is trace mitral valve regurgitation. There is no mitral valve stenosis. Pulmonic Valve The pulmonic valve was not well visualized. Tricuspid Valve Likely normal tricuspid valve structure and function. There is mild tricuspid valve regurgitation. The right ventricular systolic pressure is normal. The right ventricular systolic pressure is 28 mmHg. Normal right atrial pressure. Great Vessels The pulmonary artery was not well visualized. There is mild dilatation of the ascending aorta measuring 4.10 cm. Venous The inferior vena cava is normal in size and collapses greater than 50% with inspiration. Pericardium/Pleural There is no evidence of pericardial effusion. Prior Study Comparison No significant change compared to prior study dated: 04/03/2022. Measurements 2D Linear Measurements IVSd: 1.12 0.6-0.9/0.6-1.0 cm LVIDd: 4.63 3.9-5.3/4.2-5.9 cm LVIDd Index: 1.70 2.4-3.2/2.2-3.1 cm/m2 LVIDs: 3.47 2.0-3.6 cm LVPWd: 1.13 0.7-1.1 cm LA Diam: 3.90 2.7-3.8/3.0-4.0 cm LAIDs Index: 1.43 1.5-2.3 cm/m2 LV Mass: 235.46 67-162/88-224 g LV Mass Index: 86.25 43-95/49-115 g/m2 LVOT Diam: 2.80 3.0+(-)1.3 cm 2D Systolic Function EF 4C: 61.90 >55% EF 2C: 71.00 >55% EF BiP: 66.90 >55% Mitral Valve MV Pk E: 0.92 MV PK A: 0.31 MV Decel Time: 200.00 E/A: 2.90 E'Lateral: 13.10 E'Medial: 7.29 E/E' Med: 12.60 E/E' Lat: 7.00 PHT: 59.00 MVA PHT: 3.73 Decel [place]: 4.61 Aortic Valve AoV Pk Murray: 2.02 AoV Mn Murray: 1.51 AoV VTI: 0.39 AoV Pk Grad: 16.00 Aov Mn Grad: 10.00 LE Cont.VTI: 3.07 LVOT LVOT Pk Murray: 0.94 LVOT Mn Murray: 0.70 LVOT VTI: 0.20 LVOT Pk Grad: 4.00 LVOT Mn Grad: 2.00 LVOT Diam: 2.80 LVOT Area: 6.16 Diastolic Function MV Pk E: 0.92 MV Pk A: 0.31 E/A: 2.90 E'Medial: 7.29 E/E' Med: 12.60 E' Laterial: 13.10 E/E' Lat: 7.00 Right Ventricle TAPSE (mm): 22.50 TVS' Murray: 9.96 Tricuspid Valve TR Pk Murray: 1.83 TR Pk Grad: 13.00 RA Press: 15.00 RVSP: 28.00 Great Vessels Aorta Sinus of Valsalva: 4.40 2.0-3.5 cm Ao Asc: 4.10 2.1-3.4 cm Pulmonary Valve PV Pk Murray: 0.90 Peak PV Grad: 3.00 Updated in Other Vendor System with Status of Final Nate Ronquillo MD electronically signed on 09/07/2022 11:32:04 AM with status of Final
[2022-09-06] MEDS: methylPREDNISolone Sod Succ 40 MG/ML VIAL IVPUSH ×2 (08:14→15:35)
[2022-09-06] MEDS: Lidocaine 4 % Patch ADH..PATCH 1 PATCH TRANSDERMA (08:14)
[2022-09-06] MEDS: 0.9 % Sodium Chloride Flush 3 ML SYRINGE IVFLUSH ×3 (08:15→20:02)
[2022-09-06] MEDS: Albuterol Sulfate (0.083%) 2.5 MG/3 ML VIAL.NEB INHALE ×2 (08:20→11:56)
--- NOTE | 2022-09-06 09:08 | MHC.CM.PN ---
TI LIVES AT THE [facility]. HE USES A WHEELCHAIR AND WALKER AT FACILITY. NO O2 BUT DOES HAVE UPDRAFT TREATMENTS. HE IS ALSO PARTICIPATING DAILY (M-F) IN PHYSICAL THERAPY HCP IS ON FILE AND VERIFIED. PATIENT REPORTS THAT HE SWIMS EVERY FRIDAY AT THE LOCAL [facility] AND USES [facility] FOR TRANSPORT TO AND FROM. IMM DISCUSSED, SIGNED, AND COPY NOW IN CHART PLAN IS RETURN TO [facility] WHEN MEDICALLY STABLE (VIA AMBULANCE)
--- NOTE | 2022-09-06 09:19 | P.PNIM_ITS ---
Subjective Subjective Date of Service: 09/09/22 Interval History: Seen in f/u PNA, respiratory difficulty, copd exacerbation and markedly swollen legs interval history: He feels much better today, less wheezing and voiding alot, no fever Review of Systems no fever, no rash, no difficulty breathing Physical Exam Vital Signs: Vital Signs: Last Vital Signs Temp 97.5 F 09/06/22 08:10 Pulse 75 09/06/22 08:20 Resp 16 09/06/22 08:20 BP 158/96 H 09/06/22 08:10 Pulse Ox 95 09/06/22 08:10 O2 Del Method Room Air 09/06/22 08:10 BMI result Body Mass Index 60.5 Const: Other: General: AO X 3, no acute distress Resp: some wheeze CVS: S1, S2, iregular GI: +BS, NT, no distention Skin: stasis dermatitis of lower legs Neuro: motor grossly intact Psych: appropriate affect Objective Data Active Medications Acetaminophen (Acetaminophen 325 Mg Tablet) 650 mg PO Q6H PRN PRN Reason: Pain, Mild (Pain Scale 1-3) Last Admin: 09/05/22 21:30 Dose: 650 mg Documented By: DALI Albuterol Sulfate (Albuterol Sulfate (0.083%) 2.5 Mg/3 Ml Vial.Neb) 2.5 mg INHALE RQ4H WHILE AWAKE [facility] Last Admin: 09/06/22 08:20 Dose: 2.5 mg Documented By: ORLIN Albuterol Sulfate (Albuterol Sulfate (0.083%) 2.5 Mg/3 Ml Vial.Neb) 2.5 mg INHALE Q2H PRN PRN Reason: Shortness of Breath/Wheezing Heparin Sodium (Porcine) (Heparin Sodium,Porcine 5,000 Unit/Ml Vial) 5,000 unit SUBCUT Q12H [facility] Last Admin: 09/06/22 06:04 Dose: 5,000 unit Documented By: DALI Levofloxacin (Levaquin) 750 mg in 150 mls @ 100 mls/hr IV Q24H DANISHA Lidocaine (Lidocaine 4 % Patch Adh..Patch) 1 patch TRANSDERMA DAILY [facility]; Protocol Last Admin: 09/06/22 08:14 Dose: 1 patch Documented By: KENDALL Magnesium Hydroxide (Milk Of Magnesia 30 Ml Oral.Susp) 30 ml PO DAILY PRN PRN Reason: Constipation Melatonin (Melatonin 3 Mg Tablet) 6 mg PO BEDTIME PRN PRN Reason: Insomnia Methylprednisolone Sodium Succinate (Methylprednisolone Sod Succ 40 Mg/Ml Vial) 40 mg IVPUSH Q8H [facility] Last Admin: 09/06/22 08:14 Dose: 40 mg Documented By: KENDALL Ondansetron HCl (Ondansetron Hcl 4 Mg/2 Ml Vial) 4 mg IVPUSH Q8H PRN PRN Reason: Nausea and Vomiting Senna (Sennosides 8.6 Mg Tablet) 17.2 mg PO BEDTIME PRN PRN Reason: Constipation Sodium Chloride (0.9 % Sodium Chloride Flush 3 Ml Syringe) 3 ml IVFLUSH QSHIFT [facility] Last Admin: 09/06/22 08:15 Dose: 3 ml Documented By: KENDALL Labs 09/05/22 13:08 09/05/22 13:08 Labs: Laboratory Results - last 24 hr 09/05/22 09/05/22 09/05/22 13:08 13:08 13:08 MCV 86.0 MCH 27.1 MCHC 31.6 RDW 15.2 Plt Count 141 L MPV 8.7 L Immature Gran % (Auto) 0.2 Neut % (Auto) 68.1 Lymph % (Auto) 10.6 L [place] % (Auto) 16.8 H Eos % (Auto) 3.9 Baso % (Auto) 0.4 Lymph # (Auto) 0.5 L [place] # (Auto) 0.8 Eos # (Auto) 0.2 Baso # (Auto) 0.0 Abs Immat Gran (auto) 0.01 Absolute Neuts (auto) 3.3 Absolute Nucleated RBC 0.000 Nucleated RBC % (auto) 0.0 Anion Gap 14 Estim Creat Clear Calc 67.5 Estimated GFR 46 Random Glucose 154 H Lactic Acid Calcium 8.8 Troponin I High Sens 22.7 B-Natriuretic Peptide 09/05/22 09/05/22 13:08 15:14 MCV MCH MCHC RDW Plt Count MPV Immature Gran % (Auto) Neut % (Auto) Lymph % (Auto) [place] % (Auto) Eos % (Auto) Baso % (Auto) Lymph # (Auto) [place] # (Auto) Eos # (Auto) Baso # (Auto) Abs Immat Gran (auto) Absolute Neuts (auto) Absolute Nucleated RBC Nucleated RBC % (auto) Anion Gap Estim Creat Clear Calc Estimated GFR Random Glucose Lactic Acid 1.7 Calcium Troponin I High Sens B-Natriuretic Peptide 51 Assessment and Plan (1) Pneumonia: Status: Acute (2) COPD exacerbation: Status: Acute (3) Acute kidney injury superimposed on CKD: Status: Acute Plan 77 year male with history history of B-cell lymphoma, chronic AFib, COPD, stage III C here with sob and found to have pneumonia, COPD with acute exacerbatrion Pneumonia--no sepsis, started on Levaquin 09/05 (pen allergy)and will continue,monitor resp status, change to oral Levaquin today COPD exacerbation--Updraft scheduled and PRN, IV steroid as ordered, continue to improve, change to oral steroid Marked leg edema, nl BNP but concern of heart failure IV lasix x 1and monitor urine output.. Lasix allergy noted overnight and will avoid further. Will look for alternative diuretic cardiology doesn't think acue heart failure so no more diuretics, follow renal function, Cr higher today but no far baseline 3. unspecified AFIB controlled, reason unclear but previously documented 4. CKD3 , mild increase in Cr. Monitor recheck tomorrow 5. Morbid obesity weight loss recommended as may affect other health issues DVT prophylaxis Heparin Need for inpatient: IV diuretics for likely heart failure, pneumonia that needs IV antibiotics. Plan discharge tomorrow Time Spent With Patient Time: Total time managing care of this patient today ____ minutes. Quality Stroke Does the patient have a stroke diagnosis?: No VTE Prior VTE?: No VTE Risk Level:: Medical - moderate - high VTE Device Contraindication: Treatment Not Indicated VTE Drug Contraindication: N/A - Med Ordered
--- NOTE | 2022-09-06 11:06 | MHC.CLN ---
NUTRITION CONSULT FOR SKIN INTEGRITY. PATIENT WITH STAGE I TO BUTTOCK. DIET=CARDIAC. NO ADDITIONAL NUTRITION INTERVENTIONS AT THIS TIME.
--- NOTE | 2022-09-06 12:25 | P.CONCA_ITS ---
History of Present Illness History of Present Illness Date of Service: 09/06/22 Requesting physician: [facility] Consult reason: atrial fibrillation and shortness of breath Chief complaint: Pneumonia, COPD ex Narrative: I was requested to see Miguel Ángel in cardiology consultation today for management of his atrial fibrillation and his shortness of breath. Patient seen at bedside. He has prior history of chronic kidney disease, chronic atrial fibrillation, morbid obesity, COPD, prior DVT. Patient came to the hospital because of poor response to bronchodilator therapy at his place of living at [facility]. Patient noted to be having COPD exacerbation. However continues to remain short of breath. His BNP is normal. There was question suspicion for heart failure. Patient also had atrial fibrillation rapid ventricular response. Currently not on a monitor. He denies any palpitations. He said he has chronic atrial fibrillation, being followed by foundry helper. He does not appear to be on oral anticoagulation at the custodial facility. He denies any chest pain. However says he continues to be wheezing at this point in time. Denies any clear orthopnea, PND. Does have leg edema. Very limited overall functional capacity. Review of Systems Constitutional: Constitutional: Reports no additional constitutional complaints Cardiovascular: Cardiovascular: Reports no additional cardiovascular complaints and Reports dyspnea Respiratory: Respiratory: Reports cough, Reports dyspnea and Reports wheezing Allergic/Immunologic: Allergic/Immunologic: Reports wheezing PMFSH Past Medical History Medical History Anemia, unspecified B-cell lymphoma Cellulitis of leg Chronic a-fib COPD (chronic obstructive pulmonary disease) Dermatitis Edema Hammer toes of both feet Hearing loss Impaired fasting glucose Mild cognitive impairment Morbid obesity Nail dystrophy Osteoarthritis Pain in right shoulder Stage 3 chronic kidney disease Unspecified atherosclerosis of [place] arteries of extremities, bilateral legs Family History Family History Other No family history of coronary artery disease Surgical History Surgical History No pertinent past surgical history Social History Social History Household Members: Other Housing: Assisted Do you presently have visiting nurse or other home services: No Alcohol intake: never Patient Tobacco Use Status: Former Tobacco user Tobacco use type: Cigarette Smoked in Last 30 Days: No Patient Interested in Nicotine Replacement: No Patient Given Instructions on How to Stop Smoking: No Second Hand Smoke Exposure: No Use of substances other than those prescribed or required for medical reasons: No Currently Displaying Signs/Symptoms of Drug Intoxication Withdrawal: No Any prior treatment program specific to substance use: No Have you been hit, kicked, punched, or otherwise hurt by someone within the past year? If so, by whom?: No Do you feel safe in your current relationship?: Yes Is there a partner from a previous relationship who is making you feel unsafe now?: No Are you made to feel afraid or neglected: No Advance Directives: Yes Advance Directives on File: Yes Advance Directives Date on File: 06/04/22 Do you have thoughts of harming others: None Do you have a plan to hurt others: No Plan Recently lost weight without trying: No How much weight loss: Not applicable Eating poorly because of decreased appetite: No Nutrition screen score: 0 Nutrition Risks: No Nutritional Risk Poor oral hygiene: No service: Yes Current occupational status: retired [employer] Allergies Allergy/AdvReac Type Severity Reaction Status Date / Time cephalexin [From KEFLEX] Allergy Unknown UNKNOWN Verified 02/11/22 16:32 furosemide [From Lasix] Allergy Unknown Rash Verified 09/06/22 06:37 meropenem [MEROPENEM] Allergy Unknown UNKNOWN Verified 05/24/20 03:36 Penicillins [PENICILLINS] Allergy Unknown UNKNOWN Verified 05/24/20 03:36 sulfamethoxazole Allergy Unknown UNKNOWN Verified 06/04/22 01:15 [From BACTRIM] trimethoprim [From BACTRIM] Allergy Unknown UNKNOWN Verified 05/24/20 03:36 Active Medications: Current Medications Acetaminophen (Acetaminophen 325 Mg Tablet) 650 mg PO Q6H PRN PRN Reason: Pain, Mild (Pain Scale 1-3) Last Admin: 09/05/22 21:30 Dose: 650 mg Heparin Sodium (Porcine) (Heparin Sodium,Porcine 5,000 Unit/Ml Vial) 5,000 unit SUBCUT Q12H DANISHA Last Admin: 09/06/22 06:04 Dose: 5,000 unit Levofloxacin (Levaquin) 750 mg in 150 mls @ 100 mls/hr IV Q24H DANISHA Diltiazem HCl 125 mg/ Sodium (Chloride) 125 mls @ 0 mls/hr IVCONT .Q0M DANISHA; Protocol Levalbuterol HCl (Levalbuterol Hcl 1.25 Mg/3 Ml Vial.Neb) 1.25 mg INHALE RQ4H WHILE AWAKE [facility] Levalbuterol HCl (Levalbuterol Hcl 1.25 Mg/3 Ml Vial.Neb) 1.25 mg INHALE Q2H PRN PRN Reason: Shortness of Breath/Wheezing Lidocaine (Lidocaine 4 % Patch Adh..Patch) 1 patch TRANSDERMA DAILY [facility]; Protocol Last Admin: 09/06/22 08:14 Dose: 1 patch Magnesium Hydroxide (Milk Of Magnesia 30 Ml Oral.Susp) 30 ml PO DAILY PRN PRN Reason: Constipation Melatonin (Melatonin 3 Mg Tablet) 6 mg PO BEDTIME PRN PRN Reason: Insomnia Methylprednisolone Sodium Succinate (Methylprednisolone Sod Succ 40 Mg/Ml Vial) 40 mg IVPUSH Q8H [facility] Last Admin: 09/06/22 08:14 Dose: 40 mg Ondansetron HCl (Ondansetron Hcl 4 Mg/2 Ml Vial) 4 mg IVPUSH Q8H PRN PRN Reason: Nausea and Vomiting Senna (Sennosides 8.6 Mg Tablet) 17.2 mg PO BEDTIME PRN PRN Reason: Constipation Sodium Chloride (0.9 % Sodium Chloride Flush 3 Ml Syringe) 3 ml IVFLUSH QSHIFT [facility] Last Admin: 09/06/22 08:15 Dose: 3 ml Home Medications Medication Instructions Recorded Confirmed Last Taken Type Lactobacillus acidoph-L.bulgaricus 1 tab PO DAILY@59902/11/22 09/05/22 09/05/22 History 1 million cell tablet (Floranex) acetaminophen 325 mg tablet 650 mg PO BEDTIME 02/11/22 09/05/22 09/04/22 History acetaminophen 325 mg tablet 650 mg PO Q6H PRN Pain, Mild (Pain 02/11/22 09/05/22 09/05/22 History Scale 1-3)/FEVER aloe vera 5,000 mg capsule 20,000 mg PO DAILY@59902/11/22 09/05/22 09/05/22 History ascorbic acid (vitamin C) 250 mg 500 mg PO DAILY@59902/11/22 09/05/22 09/05/22 History tablet (Vitamin C) coenzyme Q10 200 mg capsule 200 mg PO DAILY@59902/11/22 09/05/22 09/05/22 History dextromethorphan-guaifenesin 10 10 ml PO QID PRN Cough 02/11/22 09/05/22 Unknown History mg-100 mg/5 mL oral syrup omega 2-kil-ger-fish oil 1,200 mg 2 cap PO DAILY@0602/11/22 09/05/22 09/05/22 History (144 mg-216 mg) capsule (Fish Oil) psyllium husk 3.4 gram/5.4 gram 1 tbsp PO DAILY PRN Constipation 02/11/22 09/05/22 Unknown History oral powder (Metamucil) vitamin E (dl, acetate) 180 mg 180 mg PO DAILY@59902/11/22 09/05/22 09/05/22 History (400 unit) capsule Nature Fruits Cap 1 cap PO BID 06/03/22 09/05/22 09/05/22 History Vital Protein Collagen Peptide 2 ea PO DAILY 06/03/22 09/05/22 09/05/22 History docusate sodium 100 mg capsule 100 mg PO DAILY PRN Constipation 06/03/22 09/05/22 Unknown History (Colace) ipratropium 0.5 mg-albuterol 3 mg 3 ml inhalation Q4H PRN Wheezing 06/03/22 09/05/22 08/05/22 History (2.5 mg base)/3 mL nebulization soln prednisone 5 mg tablet 5 mg PO DAILY 09/05/22 09/05/22 09/05/22 History Physical Exam Vital Signs: Vital Signs: Last Vital Signs Temp 97.5 F 09/06/22 08:10 Pulse 75 09/06/22 11:57 Resp 16 09/06/22 11:57 BP 158/96 H 09/06/22 08:10 Pulse Ox 95 09/06/22 08:10 O2 Del Method Room Air 09/06/22 08:10 BMI result Body Mass Index 60.5 Const: General: cooperative, alert, awake and in distress moderate and respiratory Nutritional Appearance: obese morbidly obese Orientation/consciousness: patient oriented x3 HEENT: Head: Yes normocephalic and Yes atraumatic Neck: Neck: Yes trachea midline, Yes supple and Yes no JVD Resp: Auscultation: wheezes scattered wheezes and diminished lung sounds Cardio: Jugular venous distension: no JVD Rate: tachycardic Rhythm: abno rmal rhythm irregularly irregular Heart sounds: S1 normal heart sound present and S2 normal heart sound present GI: Auscultation: normal bowel sounds Skin: General skin exam: no rashes or lesions noted Neuro: General: patient oriented x3 and no focal motor deficits Extrem: General: Yes no clubbing, cyanosis or edema Objective Labs and Meds 09/05/22 13:08 09/05/22 13:08 Lab results: Laboratory Results - last 24 hr 09/05/22 09/05/22 09/05/22 13:08 13:08 13:08 WBC 4.9 RBC 4.42 L Hgb 12.0 L Hct 38.0 L MCV 86.0 MCH 27.1 MCHC 31.6 RDW 15.2 Plt Count 141 L MPV 8.7 L Immature Gran % (Auto) 0.2 Neut % (Auto) 68.1 Lymph % (Auto) 10.6 L [place] % (Auto) 16.8 H Eos % (Auto) 3.9 Baso % (Auto) 0.4 Lymph # (Auto) 0.5 L [place] # (Auto) 0.8 Eos # (Auto) 0.2 Baso # (Auto) 0.0 Abs Immat Gran (auto) 0.01 Absolute Neuts (auto) 3.3 Absolute Nucleated RBC 0.000 Nucleated RBC % (auto) 0.0 Sodium 140 Potassium 4.9 Chloride 106 Carbon Dioxide 25 Anion Gap 14 BUN 32 H Creatinine 1.49 H Estim Creat Clear Calc 67.5 Estimated GFR 46 Random Glucose 154 H Lactic Acid Calcium 8.8 Troponin I High Sens 22.7 B-Natriuretic Peptide 09/05/22 09/05/22 13:08 15:14 WBC RBC Hgb Hct MCV MCH MCHC RDW Plt Count MPV Immature Gran % (Auto) Neut % (Auto) Lymph % (Auto) [place] % (Auto) Eos % (Auto) Baso % (Auto) Lymph # (Auto) [place] # (Auto) Eos # (Auto) Baso # (Auto) Abs Immat Gran (auto) Absolute Neuts (auto) Absolute Nucleated RBC Nucleated RBC % (auto) Sodium Potassium Chloride Carbon Dioxide Anion Gap BUN Creatinine Estim Creat Clear Calc Estimated GFR Random Glucose Lactic Acid 1.7 Calcium Troponin I High Sens B-Natriuretic Peptide 51 Imaging Radiologist's impression: Impressions Chest X-Ray 09/05/22 13:22 IMPRESSION: Patchy opacity right upper lobe likely developing infiltrate or atelectasis. It appears new since 06/03/2022 exam. Assessment and Plan (1) Chronic a-fib: Status: Acute Chronic atrial fibrillation rapid ventricular response most likely related to acute medical illness. Switch to Xopenex. Continue aggressive treatment of COPD exacerbation. Will start on IV Cardizem drip and put him on cardiac tel emetry to assess for rate control. If rate remains difficult control can use IV digoxin. Given his age and risk factor should be on oral anticoagulation therapy. Would consider switching him to either Eliquis or Xarelto for adequate oral anticoagulation based on his renal function. (2) COPD exacerbation: Status: Acute Patient with significant wheezing bronchospastic airway disease, appears to not have any signs of congestive heart failure clinically. No signs of volume overload. Leg edema appears to be related to peripheral venous hypertension. Continue management of his COPD as per the hospitalist team. Will sign off the case and follow-up as need be. Thank you for allowing me to partake in his care Time Spent With Patient Time: Total time managing care of this patient today ____ minutes. Procedures Date of Service Date of Service: 09/06/22
--- NOTE | 2022-09-06 13:10 | PC.NURSE ---
Pt being transferred to [facility] bed 454 for management of AFIb per MD orders, pt placed on telemetry report called to JEFF Poole
[2022-09-06] MEDS: levoFLOXacin/D5W 750 MG/150 ML PIGGYBACK 100 MG IV (15:34)
[2022-09-06] MEDS: levalbuterol HCL 1.25 MG/3 ML VIAL.NEB INHALE ×2 (17:00→21:07)
[2022-09-07] VITALS (10 sets, daily range): BP systolic 137–183; BP diastolic 70–108; PULSE 75–115; RESP 16–20; TEMP 36.1–36.7; O2SAT 93–99
[2022-09-07] MEDS: Acetaminophen 325 MG TABLET 650 MG PO (00:31)
[2022-09-07] MEDS: methylPREDNISolone Sod Succ 40 MG/ML VIAL IVPUSH ×4 (00:32→23:41)
[2022-09-07] MEDS: levalbuterol HCL 1.25 MG/3 ML VIAL.NEB INHALE ×4 (07:59→18:46)
[2022-09-07 08:02] LABS: Anion Gap 15 (12-20); Blood Urea Nitrogen 41 mg/dL (9-16); Calcium 8.7 mg/dL (8.4-10.2); Carbon Dioxide 26 mmol/L (22-29); Chloride 103 mmol/L (96-108); Creatinine Clr Calc Pharmacy 54.4; Estimated Glomerular Filt Rate 36; Glucose Random 157 mg/dL (60-115); Potassium 5.1 mmol/L (3.3-5.1); Sodium 139 mmol/L (135-145)
[2022-09-07] MEDS: Lidocaine 4 % Patch ADH..PATCH 1 PATCH TRANSDERMA (08:20)
[2022-09-07] MEDS: 0.9 % Sodium Chloride Flush 3 ML SYRINGE IVFLUSH ×2 (08:23→16:19)
--- NOTE | 2022-09-07 11:18 | P.PNCA_ITS ---
Subjective Subjective Date of Service: 09/07/22 Principal diagnosis: Atrial fibrillation Interval history: Patient says he has wheezing is better and less short of breath. Remains in atrial fibrillation rapid ventricular response. Currently not on IV Cardizem. Denies any palpitations or chest pain. Review of Systems Constitutional: Reports no additional constitutional complaints Cardiovascular: Reports no additional cardiovascular complaints Respiratory: Reports wheezing Gastrointestinal: Reports no additional gastrointestinal complaints Genitourinary: Reports no additional male genitourinary complaints Musculoskeletal: Reports no additional musculoskeletal complaints Skin/Breast: Reports system reviewed and no additional complaints, except as do cu Allergic/Immunologic: Reports wheezing Physical Exam Vital Signs: Last Vital Signs Temp 97.9 F 09/07/22 07:08 Pulse 81 09/07/22 08:03 Resp 18 09/07/22 08:03 BP 176/108 H 09/07/22 07:08 Pulse Ox 96 09/07/22 07:08 O2 Del Method Room Air 09/07/22 02:48 BMI result Body Mass Index 60.5 Const General: cooperative, alert, awake and in distress moderate and respiratory Nutritional Appearance: obese morbidly obese Orientation/consciousness: patient oriented x3 Neck Neck: Yes trachea midline, Yes supple and Yes no JVD Resp Auscultation: wheezes scattered wheezes and diminished lung sounds Cardio Jugular venous distension: no JVD Rate: tachycardic Rhythm: abnormal rhythm irregularly irregular Heart sounds: S1 normal heart sound present and S2 normal heart sound present GI Auscultation: normal bowel sounds Skin General skin exam: no rashes or lesions noted Neuro General: patient oriented x3 and no focal motor deficits Extrem General: Yes no clubbing, cyanosis or edema Objective Labs and Meds 09/05/22 13:08 09/07/22 07:36 Lab results: Laboratory Results - last 24 hr 09/07/22 07:36 Sodium 139 Potassium 5.1 Chloride 103 Carbon Dioxide 26 Anion Gap 15 BUN 41 H Creatinine 1.85 H Estim Creat Clear Calc 54.4 Estimated GFR 36 Random Glucose 157 H Calcium 8.7 Progress Note: A&P Assessment and plan (1) Chronic a-fib: Status: Acute Assessment and Plan: Chronic atrial fibrillation with slightly elevated heart rate most likely due to lack of medications. Agree with switching to Xopenex. Would add Cardizem 60 mg p.o. q.6 hours. Can add digoxin if rate remains difficult control and can give him 2 doses of IV digoxin while he is being monitored. Continue COPD management. Should be on oral anticoagulation therapy, see no obvious contraindications. Will consider giving Eliquis 5 mg b.i.d.. At this point time will sign of the case. Thank you for allowing me to partake in his care Time Spent With Patient Time: Total time managing care of this patient today ____ minutes. Progress Note: Quality Stroke Does the patient have a stroke diagnosis?: No Procedures Date of Service Date of Service: 09/07/22
[2022-09-07] MEDS: levoFLOXacin/D5W 750 MG/150 ML PIGGYBACK 100 MG IV (16:19)
--- NOTE | 2022-09-07 16:31 | PM.CNNEP ---
History of Present Illness Reason for Consult Consult date: 09/07/22 Reason for consult: DAREK on CKD Requesting physician: Hossein Garcia Chief Complaint Chief complaint: Pneumonia, COPD ex History of Present Illness Narrative: Miguel Ángel is a 77 yo man with morbid obesity and COPD admitted for exacerbation of copd. His admission creat as 1.8 mg/dl. He has CKD stage 3 with a baseline of about 1.4 mg/dl and has had multiple prior episodes of DAREK. He tells me he is [facility] [place] [facility] Quyen Post. He was admitted with increase in wheezing and SOB. He had a urine IEF showing a faint monoclonal band in 2021. He is anemic. This admission, CXR suggests a RUL infiltrate. His creat is imroving and is 1.6 today. He has a hx significant for prior B-cell lymphoma. Review of Systems Review of Systems no fever, no rash, no difficulty breathing Yes all other systems are reviewed and are negative Constitutional: Reports no additional constitutional complaints Cardiovascular: Reports no additional cardiovascular complaints and Reports dyspnea Respiratory: Reports cough, Reports dyspnea and Reports wheezing Gastrointestinal: Reports no additional gastrointestinal complaints Genitourinary: Reports no additional male genitourinary complaints Musculoskeletal: Reports no additional musculoskeletal complaints Skin/Breast: Reports system reviewed and no additional complaints, except as docu Allergic/Immunologic: Reports wheezing PMFSH Past Medical History Medical History Anemia, unspecified B-cell lymphoma Cellulitis of leg Chronic a-fib COPD (chronic obstructive pulmonary disease) Dermatitis Edema Hammer toes of both feet Hearing loss Impaired fasting glucose Mild cognitive impairment Morbid obesity Nail dystrophy Osteoarthritis Pain in right shoulder Stage 3 chronic kidney disease 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, bilateral legs Family History Family History Other No family history of coronary artery disease Surgical History Surgical History No pertinent past surgical history Social History Social History Household Members: Other Housing: Alf Do you presently have visiting nurse or other home services: No Alcohol intake: never Patient Tobacco Use Status: Former Tobacco user Tobacco use type: Cigarette Smoked in Last 30 Days: No Patient Interested in Nicotine Replacement: No Patient Given Instructions on How to Stop Smoking: No Second Hand Smoke Exposure: No Use of substances other than those prescribed or required for medical reasons: No Currently Displaying Signs/Symptoms of Drug Intoxication Withdrawal: No Any prior treatment program specific to substance use: No Have you been hit, kicked, punched, or otherwise hurt by someone within the past year? If so, by whom?: No Do you feel safe in your current relationship?: Yes Is there a partner from a previous relationship who is making you feel unsafe now?: No Are you made to feel afraid or neglected: No Advance Directives: Yes Advance Directives on File: Yes Advance Directives Date on File: 06/04/22 Do you have thoughts of harming others: None Do you have a plan to hurt others: No Plan Recently lost weight without trying: No How much weight loss: Not applicable Eating poorly because of decreased appetite: No Nutrition screen score: 0 Nutrition Risks: No Nutritional Risk Poor oral hygiene: No service: Yes Current occupational status: retired [employer] Allergies Allergy/AdvReac Type Severity Reaction Status Date / Time cephalexin [From KEFLEX] Allergy Unknown UNKNOWN Verified 02/11/22 16:32 furosemide [From Lasix] Allergy Unknown Rash Verified 09/06/22 06:37 meropenem [MEROPENEM] Allergy Unknown UNKNOWN Verified 05/24/20 03:36 Penicillins [PENICILLINS] Allergy Unknown UNKNOWN Verified 05/24/20 03:36 sulfamethoxazole Allergy Unknown UNKNOWN Verified 06/04/22 01:15 [From BACTRIM] trimethoprim [From BACTRIM] Allergy Unknown UNKNOWN Verified 05/24/20 03:36 Active Medications: Current Medications Acetaminophen (Acetaminophen 325 Mg Tablet) 650 mg PO Q6H PRN PRN Reason: Pain, Mild (Pain Scale 1-3) Last Admin: 09/07/22 00:31 Dose: 650 mg Heparin Sodium (Porcine) (Heparin Sodium,Porcine 5,000 Unit/Ml Vial) 5,000 unit SUBCUT Q12H [facility] Last Admin: 09/07/22 16:11 Dose: Not Given Levofloxacin (Levaquin) 750 mg in 150 mls @ 100 mls/hr IV Q24H [facility] Last Admin: 09/07/22 16:19 Dose: 100 mls/hr Diltiazem HCl 125 mg/ Sodium (Chloride) 125 mls @ 0 mls/hr IVCONT .Q0M [facility]; Protocol Levalbuterol HCl (Levalbuterol Hcl 1.25 Mg/3 Ml Vial.Neb) 1.25 mg INHALE RQ4H WHILE AWAKE [facility] Last Admin: 09/07/22 15:44 Dose: 1.25 mg Levalbuterol HCl (Levalbuterol Hcl 1.25 Mg/3 Ml Vial.Neb) 1.25 mg INHALE Q2H PRN PRN Reason: Shortness of Breath/Wheezing Lidocaine (Lidocaine 4 % Patch Adh..Patch) 1 patch TRANSDERMA DAILY [facility]; Protocol Last Admin: 09/07/22 08:20 Dose: 1 patch Magnesium Hydroxide (Milk Of Magnesia 30 Ml Oral.Susp) 30 ml PO DAILY PRN PRN Reason: Constipation Melatonin (Melatonin 3 Mg Tablet) 6 mg PO BEDTIME PRN PRN Reason: Insomnia Methylprednisolone Sodium Succinate (Methylprednisolone Sod Succ 40 Mg/Ml Vial) 40 mg IVPUSH Q8H [facility] Last Admin: 09/07/22 16:19 Dose: 40 mg Ondansetron HCl (Ondansetron Hcl 4 Mg/2 Ml Vial) 4 mg IVPUSH Q8H PRN PRN Reason: Nausea and Vomiting Senna (Sennosides 8.6 Mg Tablet) 17.2 mg PO BEDTIME PRN PRN Reason: Constipation Sodium Chloride (0.9 % Sodium Chloride Flush 3 Ml Syringe) 3 ml IVFLUSH QSHIFT [facility] Last Admin: 09/07/22 16:19 Dose: 3 ml Home Medications Medication Instructions Recorded Confirmed Last Taken Type Lactobacillus acidoph-L.bulgaricus 1 tab PO DAILY@59902/11/22 09/05/22 09/05/22 History 1 million cell tablet (Floranex) acetaminophen 325 mg tablet 650 mg PO BEDTIME 02/11/22 09/05/22 09/04/22 History acetaminophen 325 mg tablet 650 mg PO Q6H PRN Pain, Mild (Pain 02/11/22 09/05/22 09/05/22 History Scale 1-3)/FEVER aloe vera 5,000 mg capsule 20,000 mg PO DAILY@59902/11/22 09/05/22 09/05/22 History ascorbic acid (vitamin C) 250 mg 500 mg PO DAILY@0602/11/22 09/05/22 09/05/22 History tablet (Vitamin C) coenzyme Q10 200 mg capsule 200 mg PO DAILY@59902/11/22 09/05/22 09/05/22 History dextromethorphan-guaifenesin 10 10 ml PO QID PRN Cough 02/11/22 09/05/22 Unknown History mg-100 mg/5 mL oral syrup omega 3-lao-fik-fish oil 1,200 mg 2 cap PO DAILY@59902/11/22 09/05/22 09/05/22 History (144 mg-216 mg) capsule (Fish Oil) psyllium husk 3.4 gram/5.4 gram 1 tbsp PO DAILY PRN Constipation 02/11/22 09/05/22 Unknown History oral powder (Metamucil) vitamin E (dl, acetate) 180 mg 180 mg PO DAILY@59902/11/22 09/05/22 09/05/22 History (400 unit) capsule Nature Fruits Cap 1 cap PO BID 06/03/22 09/05/22 09/05/22 History Vital Protein Collagen Peptide 2 ea PO DAILY 06/03/22 09/05/22 09/05/22 History docusate sodium 100 mg capsule 100 mg PO DAILY PRN Constipation 06/03/22 09/05/22 Unknown History (Colace) ipratropium 0.5 mg-albuterol 3 mg 3 ml inhalation Q4H PRN Wheezing 06/03/22 09/05/22 08/05/22 History (2.5 mg base)/3 mL nebulization soln prednisone 5 mg tablet 5 mg PO DAILY 09/05/22 09/05/22 09/05/22 History Physical Exam Vital Signs: Last Vital Signs Temp 97.3 F 09/07/22 15:35 Pulse 90 09/07/22 15:45 Resp 16 09/07/22 15:45 BP 150/70 H 09/07/22 15:35 Pulse Ox 93 09/07/22 15:35 O2 Del Method Room Air 09/07/22 15:35 BMI result Body Mass Index 60.5 Const Other: General: AO X 3, no acute distress Resp: some wheeze CVS: S1, S2, iregular GI: +BS, NT, no distention Skin: stasis dermatitis of lower legs Neuro: motor grossly intact Psych: appropriate affect General: cooperative, alert, awake and in distress Nutritional Appearance: obese Orientation/consciousness: patient oriented x3 HEENT Head: Yes normocephalic and Yes atraumatic Neck Neck: Yes trachea midline, Yes supple and Yes no JVD Resp Auscultation: wheezes and diminished lung sounds Cardio Jugular venous distension: no JVD Rate: tachycardic Rhythm: abnormal rhythm Heart sounds: S1 normal heart sound present and S2 normal heart sound present GI Auscultation: normal bowel sounds Skin General skin exam: no rashes or lesions noted Neuro General: patient oriented x3 and no focal motor deficits Extrem General: Yes no clubbing, cyanosis or edema Results Lab Results 09/05/22 13:08 09/07/22 07:36 Lab results: Chemistry 09/05/22 09/07/22 13:08 07:36 Sodium 140 139 Potassium 4.9 5.1 Carbon Dioxide 25 26 BUN 32 H 41 H Creatinine 1.49 H 1.85 H Calcium 8.8 8.7 Hematology 09/05/22 13:08 WBC 4.9 Hgb 12.0 L Plt Count 141 L Assessment and Plan (1) Acute kidney injury superimposed on CKD: Status: Acute (2) CKD (chronic kidney disease): Status: Acute (3) Monoclonal gammopathy: Status: Acute Plan The pt has a hx of B cell lymphoma and appears to have had a positive urine for monoclonal gammopathy. This should be followed and may very well be [facility] [place]. [facility] could [facility] or check and SPEP,IF and free kappa and lambda light chain. From the point of view of DAREK, this is likely prerenal due to relative vol depletion (vol status very diff to size up) and is already improving. 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 Procedures Date of Service Date of Service: 09/08/22
[2022-09-08] VITALS (12 sets, daily range): BP systolic 156–172; BP diastolic 76–92; PULSE 60–108; RESP 16–20; TEMP 36.3–36.8; O2SAT 91–95
[2022-09-08] MEDS: levalbuterol HCL 1.25 MG/3 ML VIAL.NEB INHALE ×4 (07:48→19:38)
[2022-09-08 08:55] LABS: Anion Gap 15 (12-20); Blood Urea Nitrogen 43 mg/dL (9-16); Calcium 9.1 mg/dL (8.4-10.2); Carbon Dioxide 25 mmol/L (22-29); Chloride 105 mmol/L (96-108); Creatinine Clr Calc Pharmacy 60.6; Estimated Glomerular Filt Rate 40; Glucose Random 143 mg/dL (60-115); Potassium 4.7 mmol/L (3.3-5.1); Sodium 140 mmol/L (135-145)
[2022-09-08] MEDS: methylPREDNISolone Sod Succ 40 MG/ML VIAL IVPUSH ×2 (09:11→17:43)
[2022-09-08] MEDS: 0.9 % Sodium Chloride Flush 3 ML SYRINGE IVFLUSH (09:11)
[2022-09-08] MEDS: Lidocaine 4 % Patch ADH..PATCH 1 PATCH TRANSDERMA (09:11)
[2022-09-08] MEDS: levoFLOXacin/D5W 750 MG/150 ML PIGGYBACK 100 MG IV (17:43)
[2022-09-08] MEDS: Sennosides 8.6 MG TABLET 17.2 MG PO (22:25)
[2022-09-09] VITALS (7 sets, daily range): BP systolic 123–168; BP diastolic 81–100; PULSE 76–98; RESP 16–21; TEMP 36.2–37.1; O2SAT 92–96
[2022-09-09] MEDS: methylPREDNISolone Sod Succ 40 MG/ML VIAL IVPUSH ×3 (01:05→16:49)
[2022-09-09] MEDS: 0.9 % Sodium Chloride Flush 3 ML SYRINGE IVFLUSH ×3 (01:08→16:01)
[2022-09-09] MEDS: Benzonatate 100 MG CAPSULE 200 MG PO (01:17)
[2022-09-09] MEDS: levalbuterol HCL 1.25 MG/3 ML VIAL.NEB INHALE ×3 (07:44→15:39)
[2022-09-09] MEDS: Lidocaine 4 % Patch ADH..PATCH 1 PATCH TRANSDERMA (08:55)
--- NOTE | 2022-09-09 09:59 | HO.PM.IMPN ---
Subjective Subjective Date of Service: 09/07/22 Interval History: Seen in f/u PNA, respiratory difficulty, copd exacerbation and markedly swollen legs interval history: better but still wheezing Review of Systems no fever, no rash, no difficulty breathing Musculoskeletal Musculoskeletal: Reports no additional musculoskeletal complaints Physical Exam Vital Signs: Vital Signs: vitals reviewed Const: Other: General: AO X 3, no acute distress Resp: some wheeze CVS: S1, S2, iregular GI: +BS, NT, no distention Skin: stasis dermatitis of lower legs Neuro: motor grossly intact Psych: appropriate affect Objective Data Active Medications Acetaminophen (Acetaminophen 325 Mg Tablet) 650 mg PO Q6H PRN PRN Reason: Pain, Mild (Pain Scale 1-3) Last Admin: 09/07/22 00:31 Dose: 650 mg Documented By: JOURDAN Benzonatate (Benzonatate 100 Mg Capsule) 200 mg PO TID PRN PRN Reason: Cough Last Admin: 09/09/22 01:17 Dose: 200 mg Documented By: JOURDAN Heparin Sodium (Porcine) (Heparin Sodium,Porcine 5,000 Unit/Ml Vial) 5,000 unit SUBCUT Q12H [facility] Last Admin: 09/09/22 04:36 Dose: Not Given Documented By: JOURDAN Non-Admin Reason: Patient Refused Levofloxacin (Levaquin) 750 mg in 150 mls @ 100 mls/hr IV Q24H [facility] Last Infusion: 09/08/22 19:30 Dose: 0 mls/hr Documented By: JOURDAN Diltiazem HCl 125 mg/ Sodium (Chloride) 125 mls @ 0 mls/hr IVCONT .Q0M [facility]; Protocol Levalbuterol HCl (Levalbuterol Hcl 1.25 Mg/3 Ml Vial.Neb) 1.25 mg INHALE RQ4H WHILE AWAKE [facility] Last Admin: 09/09/22 07:44 Dose: 1.25 mg Documented By: SHANON Levalbuterol HCl (Levalbuterol Hcl 1.25 Mg/3 Ml Vial.Neb) 1.25 mg INHALE Q2H PRN PRN Reason: Shortness of Breath/Wheezing Lidocaine (Lidocaine 4 % Patch Adh..Patch) 1 patch TRANSDERMA DAILY [facility]; Protocol Last Admin: 09/09/22 08:55 Dose: 1 patch Documented By: CHRISTIAN Magnesium Hydroxide (Milk Of Magnesia 30 Ml Oral.Susp) 30 ml PO DAILY PRN PRN Reason: Constipation Melatonin (Melatonin 3 Mg Tablet) 6 mg PO BEDTIME PRN PRN Reason: Insomnia Methylprednisolone Sodium Succinate (Methylprednisolone Sod Succ 40 Mg/Ml Vial) 40 mg IVPUSH Q8H [facility] Last Admin: 09/09/22 08:55 Dose: 40 mg Documented By: CHRISTIAN Ondansetron HCl (Ondansetron Hcl 4 Mg/2 Ml Vial) 4 mg IVPUSH Q8H PRN PRN Reason: Nausea and Vomiting Senna (Sennosides 8.6 Mg Tablet) 17.2 mg PO BEDTIME PRN PRN Reason: Constipation Last Admin: 09/08/22 22:25 Dose: 17.2 mg Documented By: JOURDAN Sodium Chloride (0.9 % Sodium Chloride Flush 3 Ml Syringe) 3 ml IVFLUSH QSHIFT [facility] Last Admin: 09/09/22 08:55 Dose: 3 ml Documented By: CHRISTIAN Labs 09/05/22 13:08 09/08/22 08:12 Assessment and Plan (1) COPD exacerbation: Status: Acute (2) Pneumonia: Status: Acute Plan 77 year male with history history of B-cell lymphoma, chronic AFib, COPD, stage III C here with sob and found to have pneumonia, COPD with acute exacerbatrion Pneumonia--no sepsis, started on Levaquin 09/05 (pen allergy)and will continue,monitor resp status, change to oral Levaquin today COPD exacerbation--Updraft scheduled and PRN, IV steroid as ordered, continue to improve, change to oral steroid Marked leg edema, nl BNP but concern of heart failure IV lasix x 1and monitor urine output.. Lasix allergy noted overnight and will avoid further. Will look for alternative diuretic cardiology doesn't think acue heart failure so no more diuretics, 3. unspecified AFIB controlled, reason unclear but previously documented not to be on blood thiners 4. CKD3 , mild increase in Cr. Monitor. Nephrology consult 5. Morbid obesity weight loss recommended as may affect other health issues DVT prophylaxis Heparin Need for inpatient: IV Abx for pneumonia, IV steroid for copd late entry for 09/07 Time Spent With Patient Time: Total time managing care of this patient today ____ minutes. Quality Stroke Does the patient have a stroke diagnosis?: No VTE Prior VTE?: No VTE Risk Level:: Medical - moderate - high VTE Device Contraindication: Treatment Not Indicated VTE Drug Contraindication: N/A - Med Ordered
--- NOTE | 2022-09-09 10:10 | P.PNIM_ITS ---
Subjective Subjective Date of Service: 09/08/22 Interval History: Seen in f/u PNA, respiratory difficulty, copd exacerbation and markedly swollen legs interval history: continues to improve Physical Exam Vital Signs: Vital Signs: vital reviewd Const: Other: General: AO X 3, no acute distress Resp: some wheeze CVS: S1, S2, iregular GI: +BS, NT, no distention Skin: stasis dermatitis of lower legs Neuro: motor grossly intact Psych: appropriate affect Objective Data Active Medications Acetaminophen (Acetaminophen 325 Mg Tablet) 650 mg PO Q6H PRN PRN Reason: Pain, Mild (Pain Scale 1-3) Last Admin: 09/07/22 00:31 Dose: 650 mg Documented By: JOURDAN Benzonatate (Benzonatate 100 Mg Capsule) 200 mg PO TID PRN PRN Reason: Cough Last Admin: 09/09/22 01:17 Dose: 200 mg Documented By: JOURDAN Heparin Sodium (Porcine) (Heparin Sodium,Porcine 5,000 Unit/Ml Vial) 5,000 unit SUBCUT Q12H [facility] Last Admin: 09/09/22 04:36 Dose: Not Given Documented By: JOURDAN Non-Admin Reason: Patient Refused Levofloxacin (Levaquin) 750 mg in 150 mls @ 100 mls/hr IV Q24H [facility] Last Infusion: 09/08/22 19:30 Dose: 0 mls/hr Documented By: JOURDAN Diltiazem HCl 125 mg/ Sodium (Chloride) 125 mls @ 0 mls/hr IVCONT .Q0M [facility]; Protocol Levalbuterol HCl (Levalbuterol Hcl 1.25 Mg/3 Ml Vial.Neb) 1.25 mg INHALE RQ4H WHILE AWAKE [facility] Last Admin: 09/09/22 07:44 Dose: 1.25 mg Documented By: SHANON Levalbuterol HCl (Levalbuterol Hcl 1.25 Mg/3 Ml Vial.Neb) 1.25 mg INHALE Q2H PRN PRN Reason: Shortness of Breath/Wheezing Lidocaine (Lidocaine 4 % Patch Adh..Patch) 1 patch TRANSDERMA DAILY [facility]; Protocol Last Admin: 09/09/22 08:55 Dose: 1 patch Documented By: CHRISTIAN Magnesium Hydroxide (Milk Of Magnesia 30 Ml Oral.Susp) 30 ml PO DAILY PRN PRN Reason: Constipation Melatonin (Melatonin 3 Mg Tablet) 6 mg PO BEDTIME PRN PRN Reason: Insomnia Methylprednisolone Sodium Succinate (Methylprednisolone Sod Succ 40 Mg/Ml Vial) 40 mg IVPUSH Q8H [facility] Last Admin: 09/09/22 08:55 Dose: 40 mg Documented By: CHRISTIAN Ondansetron HCl (Ondansetron Hcl 4 Mg/2 Ml Vial) 4 mg IVPUSH Q8H PRN PRN Reason: Nausea and Vomiting Senna (Sennosides 8.6 Mg Tablet) 17.2 mg PO BEDTIME PRN PRN Reason: Constipation Last Admin: 09/08/22 22:25 Dose: 17.2 mg Documented By: JOURDAN Sodium Chloride (0.9 % Sodium Chloride Flush 3 Ml Syringe) 3 ml IVFLUSH QSHIFT [facility] Last Admin: 09/09/22 08:55 Dose: 3 ml Documented By: CHRISTIAN Labs 09/05/22 13:08 09/08/22 08:12 Assessment and Plan (1) COPD exacerbation: Status: Acute (2) Acute kidney injury superimposed on CKD: Status: Acute Plan 77 year male with history history of B-cell lymphoma, chronic AFib, COPD, stage III C here with sob and found to have pneumonia, COPD with acute exacerbatrion Pneumonia--no sepsis, started on Levaquin 09/05 (pen allergy)and will contin ue,monitor resp status, change to oral Levaquin today COPD exacerbation--Updraft scheduled and PRN, IV steroid as ordered, continue to improve, change to oral steroid Marked leg edema, nl BNP but concern of heart failure IV lasix x 1and monitor urine output.. Lasix allergy noted overnight and will avoid further. Will look for alternative diuretic cardiology doesn't think acue heart failure so no more diuretics, 3. unspecified AFIB controlled, reason unclear but previously documented not to be on blood thiners 4. CKD3 , with mild clinton likely pre renla, improving. Renal consult noted, if not improving then further work up as stated 5. Morbid obesity weight loss recommended as may affect other health issues DVT prophylaxis Heparin Need for inpatient: IV Abx for pneumonia, IV steroid for copd late entry for 09/08 Time Spent With Patient Time: Total time managing care of this patient today ____ minutes. Quality Stroke Does the patient have a stroke diagnosis?: No VTE Prior VTE?: No VTE Risk Level:: Medical - moderate - high VTE Device Contraindication: Treatment Not Indicated VTE Drug Contraindication: N/A - Med Ordered
[2022-09-09 10:59] LABS: Anion Gap 15 (12-20); Blood Urea Nitrogen 47 mg/dL (9-16); Carbon Dioxide 25 mmol/L (22-29); Chloride 103 mmol/L (96-108); Creatinine Clr Calc Pharmacy 56.5; Estimated Glomerular Filt Rate 37; Glucose Random 262 mg/dL (60-115); Potassium 5.1 mmol/L (3.3-5.1); Sodium 138 mmol/L (135-145)
--- NOTE | 2022-09-09 11:40 | P.PNIM_ITS ---
Subjective Subjective Date of Service: 09/09/22 Interval History: Seen in f/u PNA, copd exacerbation: wheezing alot today Physical Exam 2 Vital Signs: Vital Signs: Last Vital Signs Temp 97.4 F 09/09/22 08:00 Pulse 95 09/09/22 08:00 Resp 20 09/09/22 08:00 BP 154/82 H 09/09/22 08:00 Pulse Ox 95 09/09/22 08:00 O2 Del Method Room Air 09/09/22 08:00 BMI result Body Mass Index 60.5 Const: Other: General: AO X 3, no acute distress Resp: some wheeze CVS: S1, S2, iregular GI: +BS, NT, no distention Skin: stasis dermatitis of lower legs Neuro: motor grossly intact Psych: appropriate affect Objective Data Active Medications Acetaminophen (Acetaminophen 325 Mg Tablet) 650 mg PO Q6H PRN PRN Reason: Pain, Mild (Pain Scale 1-3) Last Admin: 09/07/22 00:31 Dose: 650 mg Documented By: JOURDAN Benzonatate (Benzonatate 100 Mg Capsule) 200 mg PO TID PRN PRN Reason: Cough Last Admin: 09/09/22 01:17 Dose: 200 mg Documented By: JOURDAN Heparin Sodium (Porcine) (Heparin Sodium,Porcine 5,000 Unit/Ml Vial) 5,000 unit SUBCUT Q12H [facility] Last Admin: 09/09/22 04:36 Dose: Not Given Documented By: JOURDAN Non-Admin Reason: Patient Refused Levofloxacin (Levaquin) 750 mg in 150 mls @ 100 mls/hr IV Q24H [facility] Last Infusion: 09/08/22 19:30 Dose: 0 mls/hr Documented By: JOURDAN Diltiazem HCl 125 mg/ Sodium (Chloride) 125 mls @ 0 mls/hr IVCONT .Q0M [facility]; Protocol Levalbuterol HCl (Levalbuterol Hcl 1.25 Mg/3 Ml Vial.Neb) 1.25 mg INHALE RQ4H WHILE AWAKE [facility] Last Admin: 09/09/22 07:44 Dose: 1.25 mg Documented By: SHANON Levalbuterol HCl (Levalbuterol Hcl 1.25 Mg/3 Ml Vial.Neb) 1.25 mg INHALE Q2H PRN PRN Reason: Shortness of Breath/Wheezing Lidocaine (Lidocaine 4 % Patch Adh..Patch) 1 patch TRANSDERMA DAILY [facility]; Protocol Last Admin: 09/09/22 08:55 Dose: 1 patch Documented By: CHRISTIAN Magnesium Hydroxide (Milk Of Magnesia 30 Ml Oral.Susp) 30 ml PO DAILY PRN PRN Reason: Constipation Melatonin (Melatonin 3 Mg Tablet) 6 mg PO BEDTIME PRN PRN Reason: Insomnia Methylprednisolone Sodium Succinate (Methylprednisolone Sod Succ 40 Mg/Ml Vial) 40 mg IVPUSH Q8H [facility] Last Admin: 09/09/22 08:55 Dose: 40 mg Documented By: CHRISTIAN Ondansetron HCl (Ondansetron Hcl 4 Mg/2 Ml Vial) 4 mg IVPUSH Q8H PRN PRN Reason: Nausea and Vomiting Senna (Sennosides 8.6 Mg Tablet) 17.2 mg PO BEDTIME PRN PRN Reason: Constipation Last Admin: 09/08/22 22:25 Dose: 17.2 mg Documented By: JOURDAN Sodium Chloride (0.9 % Sodium Chloride Flush 3 Ml Syringe) 3 ml IVFLUSH QSHIFT [facility] Last Admin: 09/09/22 08:55 Dose: 3 ml Documented By: CHRISTIAN Labs 09/05/22 13:08 09/09/22 10:25 Labs: Laboratory Results - last 24 hr 09/09/22 10:25 Anion Gap 15 Estim Creat Clear Calc 56.5 Estimated GFR 37 Random Glucose 262 H Calcium 9.0 Assessment and Plan (1) COPD exacerbation: Status: Acute (2) Acute kidney injury superimposed on CKD: Status: Acute Plan 77 year male with history history of B-cell lymphoma, chronic AFib, COPD, stage III C here with sob and found to have pneumonia, COPD with acute exacerbatrion Pneumonia--no sepsis, started on Levaquin 09/05 (pen allergy)and will continue,monitor resp status, change to oral Levaquin today COPD exacerbation--Updraft scheduled and PRN, IV steroid as ordered, continue to improve, change to oral steroid Marked leg edema, nl BNP but concern of heart failure IV lasix x 1and monitor urine output.. Lasix allergy noted overnight and will avoid further. Will look for alternative diuretic cardiology doesn't think acue heart failure so no more diuretics, 3. unspecified AFIB controlled, reason unclear but previously documented not to be on blood thiners 4. CKD3 , with mild clinton likely pre renal, slighly worse today. Renal consult noted, if not improving then further work up as stated 5. Morbid obesity weight loss recommended as may affect other health issues DVT prophylaxis Heparin Need for inpatient: IV Abx for pneumonia, IV steroid for copd Proably discharge back to [place]'s home today per his request Time Spent With Patient Time: Total time managing care of this patient today ____ minutes. Quality Stroke Does the patient have a stroke diagnosis?: No VTE Prior VTE?: No VTE Risk Level:: Medical - moderate - high VTE Device Contraindication: Treatment Not Indicated VTE Drug Contraindication: N/A - Med Ordered
--- NOTE | 2022-09-09 11:46 | P.PNNP_ITS ---
Subjective Subjective Date of Service: 09/12/22 Principal diagnosis: Atrial fibrillation Interval history: Events noted. Denies any new complaints. [facility] Physical Exam Vital Signs: Vital Signs: Last Vital Signs Temp 97.4 F 09/09/22 08:00 Pulse 95 09/09/22 08:00 Resp 20 09/09/22 08:00 BP 154/82 H 09/09/22 08:00 Pulse Ox 95 09/09/22 08:00 O2 Del Method Room Air 09/09/22 08:00 BMI result Body Mass Index 60.5 Const: General: cooperative, alert, awake and in distress Nutritional Appearance: obese Orientation/consciousness: patient oriented x3 HEENT: Head: Yes normocephalic and Yes atraumatic Neck: Neck: Yes trachea midline, Yes supple and Yes no JVD Resp: Auscultation: wheezes and diminished lung sounds Cardio: Jugular venous distension: no JVD Rate: tachycardic Rhythm: abnormal rhythm Heart sounds: S1 normal heart sound present and S2 normal heart sound present GI: Auscultation: normal bowel sounds Skin: General skin exam: no rashes or lesions noted Neuro: General: patient oriented x3 and no focal motor deficits Extrem: General: Yes no clubbing, cyanosis or edema Objective Data Labs 09/05/22 13:08 09/09/22 10:25 Labs: Laboratory Results - last 24 hr 09/09/22 10:25 Sodium 138 Potassium 5.1 Chloride 103 Carbon Dioxide 25 Anion Gap 15 BUN 47 H Creatinine 1.78 H Estim Creat Clear Calc 56.5 Estimated GFR 37 Random Glucose 262 H Calcium 9.0 Microbiology Microbiology Results: Microbiology 09/05/22 16:18 Blood - Venous Blood Culture - Preliminary No growth after 48 hours. 09/05/22 15:14 Blood - Venous Blood Culture - Preliminary No growth after 48 hours. Procedures Date of Service Date of Service: 09/09/22 Assessment & Plan Assessment and plan (1) Acute kidney injury superimposed on CKD: Status: Acute (2) CKD (chronic kidney disease): Status: Acute (3) Monoclonal gammopathy: Status: Acute Plan The pt has a hx of B cell lymphoma and appears to have had a positive urine for monoclonal gammopathy. This should be followed and may very well be at the OR. We could [facility] or check and SPEP,IF and free kappa and lambda light chain. From the point of view of DAREK, this is likely prerenal due to relative vol depletion (vol status very diff to size up) and is already improving. suspect his creat will continue to improve and rather than getting overly involved in further eval, since he has a wood dowel machine operator at the OR, defer to her Renal function needs to be followed upon discharge. He understands the significance and he will get in touch with Dr. Romero upon discharge. Time Spent With Patient Time: Total time managing care of this patient today ____ minutes. Progress Note: Quality Stroke Does the patient have a stroke diagnosis?: No
--- NOTE | 2022-09-09 14:53 | P.DS_ITS ---
DS: Providers Provider Date of Service: 09/09/22 Date of admission: 09/05/22 16:51 Primary care physician: Lalit John MD Consults: 09/06/22 09:24 Consult to Cardiology Routine Consulting [place] [facility] Reason for consultation: Heart failure Has provider been notified: Yes 09/07/22 10:01 Consult to Nephrology Routine Consulting Provider: Tamie Valdez Reason for consultation: DAREK on CKD DS: Diagnosis Discharge Diagnosis (1) COPD exacerbation: Status: Acute (2) Acute kidney injury superimposed on CKD: Status: Acute DS: Summary Hospital Course Hospital Course: Chief Complaint: Shortness of breath 77-year-old [facility] with history of B-cell lymphoma, chronic AFib, COPD, stage III CKD, osteoarthritis, presents to the hospital with shortness of breath over several and has been managed with updraft but getting little relief. He has diffuse wheeze, marked lower extremity swelling but normal BNP, CXR suggest pneumonia. He has no fever and WBC is normal.? He is treated with Albuterol updraft, IV antibiotics Hospital couse: He presented with shortness of breath and marked wheezing, and leg edema and CXR finding suggestive of pneumonia but also fluid overload at that time. WBC was normal. He was initiated on IV Levaquin for pneumonia and given bronchodilators and steroid for COPD exacerbation. He developped mild Acute on chronic renal failure which has improved and present creatinine within his baseline. Pneumonia--this has been treated with Levaquin at 750 mg daily for 5 days and therefore, no longer needs additional antibitics at this time. He is afebrile, breathing is comfortable. There was no sepsis component COPD exacerbation--treated with Updraft scheduled and PRN, IV steroid. He has improved but will discharged with Prednisone don Marked leg edema, nl BNP but initially there was concern of heart failure and was given 1 time dose of IV lasix with improve urine output. Lasix allergy was reported later, thus far has not shown any rash. Lasix allergy updated. He was seen by cardiology and deem not to have heart failure. He had an Echocardiogram which showed EF of 65 to 70%. 3. unspecified AFIB controlled, reason unclear but previously documented not to be on blood thiners 4. CKD3 , with mild darek likely pre renal, 1.48, 1.89 and presently 1.78 which is within his baseline. He was followed by Nephrology here and is recommended to follow up with his kidney Doctor Dr Suggs upon discharge. 5. Morbid obesity weight loss recommended as may affect other health issues Time Spent with Patient Time attestation: Total time managing care of this patient today ____ minutes. Discharge coordination time: Greater than 30 minutes Quality: Safe Use of Opioids Does Pt have an Active Cancer Diagnosis on the Problem List?: No Quality: Stroke Does the patient have a stroke diagnosis?: No Physical Exam Vital Signs: Vital Signs: Last Vital Signs Temp 97.7 F 09/09/22 12:00 Pulse 76 09/09/22 12:00 Resp 20 09/09/22 12:00 BP 140/100 H 09/09/22 12:00 Pulse Ox 94 09/09/22 12:00 O2 Del Method Room Air 09/09/22 12:00 BMI result Body Mass Index 60.5 DS: Data Data Completed and Pending Labs on day of discharge: Laboratory Results - last 24 hr 09/09/22 10:25 Sodium 138 Potassium 5.1 Chloride 103 Carbon Dioxide 25 Anion Gap 15 BUN 47 H Creatinine 1.78 H Estim Creat Clear Calc 56.5 Estimated GFR 37 Random Glucose 262 H Calcium 9.0 Preliminary micro results at discharge 09/05/22 16:18 Blood Culture - Preliminary Blood - Venous No growth after 48 hours. 09/05/22 15:14 Blood Culture - Preliminary Blood - Venous No growth after 48 hours. Discharge Plan Discharge Anticipated Discharge Date/Time: 09/09/22 14:42 Patient Disposition: Xfer SNF Discharge Diagnosis: Pneumonia, COPD exacerbation, acute on chronic renal failure Referrals: Lalit John MD [Primary Care Provider] - 1 Week Discharge Medications: New prednisone 10 mg tablet See Taper PO DIRECTED Qty: 11 0RF Taper: Prednisone 40 mg daily for 1 Day and 0 Hour 30 mg daily for 1 Day and 0 Hour 20 mg daily for 1 Day and 0 Hour 10 mg daily for 2 Days and 0 Hour Rx Instructions: see taper instructions Continued metoprolol succinate 100 mg Tablet Extended Release 24 Hr 100 mg PO DAILY@0600 Qty: 30 0RF Rx Instructions: TDD = 125 MG magnesium oxide 400 mg (241.3 mg magnesium) Tablet 400 mg PO DAILY@0600 Qty: 30 0RF magnesium hydroxide [Milk of Magnesia] 400 mg/5 mL Suspension 30 ml PO DAILY PRN (Reason: Constipation) Qty: 300 0RF bisacodyl [Gentle Laxative (bisacodyl)] 10 mg Suppository 10 mg [place] DAILY PRN (Reason: Constipation) Qty: 30 0RF metoprolol succinate 25 mg Tablet Extended Release 24 Hr 25 mg PO DAILY@0600 Qty: 30 0RF Rx Instructions: TDD = 125 MG acetaminophen 325 mg Tablet 650 mg PO BEDTIME dextromethorphan-guaifenesin 10-100 mg/5 mL Syrup 10 ml PO QID PRN (Reason: Cough) ascorbic acid (vitamin C) [Vitamin C] 250 mg Tablet 500 mg PO DAILY@0600 aloe vera 5,000 mg Capsule 20,000 mg PO DAILY@0600 coenzyme Q10 200 mg Capsule 200 mg PO DAILY@0600 vitamin E (dl, acetate) 180 mg (400 unit) Capsule 180 mg PO DAILY@0600 omega 7-haf-rac-fish oil [Fish Oil] 1,200 (144-216) mg Capsule 2 cap PO DAILY@0600 Lactobacillus acidoph-L.bulgar [Floranex] 1 million cell Tablet 1 tab PO DAILY@0600 Metamucil 3.4 gram/5.4 gram Powder 1 tbsp PO DAILY PRN (Reason: Constipation) Rx Instructions: mix into at least 8 oz of water or juice before administering acetaminophen 325 mg tablet 650 mg PO Q6H PRN (Reason: Pain, Mild (Pain Scale 1-3)/FEVER) ipratropium-albuterol 0.5 mg-3 mg(2.5 mg base)/3 mL Solution For Nebulization 3 ml INHALATION Q4H PRN (Reason: Wheezing) docusate sodium [Colace] 100 mg Capsule 100 mg PO DAILY PRN (Reason: Constipation) Nature Fruits Cap 1 cap PO BID Vital Protein Collagen Peptide 2 ea PO DAILY Rx Instructions: mix with hot coffee or tea prednisone 5 mg Tablet 5 mg PO DAILY No Action Xarelto 15 mg tablet 15 mg PO BID 21 Days Qty: 42 0RF Rx Instructions: Please take for 21 days then 20 mg daily Xarelto 20 mg tablet 20 mg PO DAILY Qty: 30 0RF Rx Instructions: must administer with evening meal Discharge Orders: Discharge Order (Routine); Ordered 09/09/22 Ordered By: Hossein Mlapah Diet: Advance to usual diet Activity on Discharge: As tolerated Stand Alone Forms: Patient Portal Discharge page Care Plan Goals: full recovery from copd and pneumonia Health Concerns: copd, acue on chronic Pneumonia, has completed 5 dose of levaquin renal failure, acute on chronic and is improving Plan of Treatment: You have completed 5 days of levaquin to treat pneumonia You will take Prednisone don to treat COPD in addition to your usual inhaler Your kidney failure has improved, follow up with your Kidney Doctor, wer recomm end a follow up with Dr. Robin in a week to 10 days, also check BMP within a week You should follow up with your doctor or house doctor within a week Assessment: See above Discharge Date/Time: 09/09/22 17:15
--- NOTE | 2022-09-09 15:25 | MHC.CM.PN ---
PT REQUESTING D/C BACK TO [facility], HOSPITALIST AGREEABLE AND WILL SEND PT ON PREDNISONE TAPER, W/E REAL ESTATE SALES MANAGER CONTACTED AND AGREEABLE TO D/C TODAY, IMM DELIVERED TO BEDSIDE 09/09/22 AND DEXTER FOR TRNASPORT AT 4:30PM.
[2022-09-09] MEDS: levoFLOXacin 750 MG TABLET PO (15:50)
[2022-09-09 16:05] LABS: COVID-19 Test Negative (Negative); IDNOW Serial# 08D9AD1C
[2022-09-09] MEDS: Heparin Sodium,Porcine 5,000 UNIT/ML VIAL 5000 UNIT SUBCUT (16:50)
== END 2022-09-09 17:15 | disposition skilled nursing facility (03) | DRG 190 ==
LOC: HO.ED 15:47 → HO.EDOVER 17:08 → HO.S3 17:09 → HO.IMC 09-06 12:44
PROVIDERS: Admitting Provider Internal Medicine; Emergency Provider Emergency Medicine; PCP Internal Medicine; Visit Provider Internal Medicine
DX: J44.0 Chronic obstructive pulmonary disease with (acute) lower respiratory infection (principal); J18.9 Pneumonia, unspecified organism; I48.20 Chronic atrial fibrillation, unspecified; Z68.44 Body mass index [BMI] 60.0-69.9, adult; N17.9 Acute kidney failure, unspecified; J44.1 Chronic obstructive pulmonary disease with (acute) exacerbation; D47.2 Monoclonal gammopathy; E66.01 Morbid (severe) obesity due to excess calories; Z88.0 Allergy status to penicillin; Z88.2 Allergy status to sulfonamides; Z20.822 Contact with and (suspected) exposure to COVID-19; Z85.72 Personal history of non-Hodgkin lymphomas; Z87.891 Personal history of nicotine dependence; Z79.899 Other long term (current) drug therapy
CPT/HCPCS: 36415; 71045; 80048; 83605; 83880; 84484; 85025; 87040; 87635; 93005; 93306; 94640; 99285; J1643; J1940; J1956; J2920; Q9957

== ENCOUNTER 2022-10-04 13:15 | Outpatient (REF) | payer MEDICARE, MEDICAID, SELFPAY ==
[2022-10-04 13:18] LABS: MANUAL DIFF FLAG NO
[2022-10-04 13:22] LABS: Basophils Percent Auto 0.3 % (0-2); Eosinophils Percent Auto 0.5 % (0-4); Hematocrit 39.1 % (42.0-52.0); Hemoglobin 12.6 g/dl (14.0-18.0); Imm Gran Abs Auto 0.03 X10*3/uL (0.00-0.03); Imm Gran Pct Auto 0.4 % (0.0-0.4); Lymphocytes Absolute Auto 0.5 X10*3/uL (1.2-4.9); Lymphocytes Percent Auto 6.5 % (20-40); Mean Corpuscular HGB Conc 32.2 g/dl (31.0-36.0); Mean Corpuscular Hemoglobin 27.6 pg (27.0-33.0); Mean Corpuscular Volume 85.6 fL (80.0-98.0); Mean Platelet Volume 8.9 fL (9.4-12.4); Monocytes Absolute Auto 0.3 X10*3/uL (0.1-1.2); Monocytes Percent Auto 3.9 % (2-11); Neutrophils Absolute Auto 7.1 x10*3/uL (2.0-8.3); Neutrophils Percent Auto 88.4 % (45-73); Platelet Count 108 X10*3/uL (160-400); Red Blood Count 4.57 X10*6/uL (4.60-5.80); Red Cell Distribution Width 15.9 % (11.0-16.0)
[2022-10-04 13:41] LABS: Anion Gap 11 (12-20); Blood Urea Nitrogen 35 mg/dL (9-16); Calcium 8.7 mg/dL (8.4-10.2); Carbon Dioxide 26 mmol/L (22-29); Chloride 106 mmol/L (96-108); Estimated Glomerular Filt Rate 49; Glucose Random 195 mg/dL (60-115); Potassium 4.8 mmol/L (3.3-5.1); Sodium 138 mmol/L (135-145)
[2022-10-04 13:42] LABS: B Type Natriuretic Peptide 90 pg/mL (<100)
== END 2022-10-04 13:16 | disposition home or self-care (01) ==
LOC: HO.HSH4W 13:15
PROVIDERS: Visit Provider Nurse Practitioner Acute Care
DX: J44.9 Chronic obstructive pulmonary disease, unspecified (principal); N18.9 Chronic kidney disease, unspecified
CPT/HCPCS: 36415; 80048; 83735; 83880; 85025

== ENCOUNTER 2022-10-22 06:58 | Outpatient (REF) | payer MEDICARE, MEDICAID, SELFPAY ==
[2022-10-22 07:03] LABS: MANUAL DIFF FLAG NO
[2022-10-22 07:24] LABS: Basophils Percent Auto 0.3 % (0-2); Eosinophils Absolute Auto 0.1 X10*3/uL (0.0-0.4); Eosinophils Percent Auto 0.9 % (0-4); Hematocrit 37.4 % (42.0-52.0); Hemoglobin 11.9 g/dl (14.0-18.0); Imm Gran Abs Auto 0.01 X10*3/uL (0.00-0.03); Imm Gran Pct Auto 0.1 % (0.0-0.4); Lymphocytes Absolute Auto 1.4 X10*3/uL (1.2-4.9); Lymphocytes Percent Auto 19.4 % (20-40); Mean Corpuscular HGB Conc 31.8 g/dl (31.0-36.0); Mean Corpuscular Hemoglobin 27.3 pg (27.0-33.0); Mean Corpuscular Volume 85.8 fL (80.0-98.0); Mean Platelet Volume 9.1 fL (9.4-12.4); Monocytes Absolute Auto 0.7 X10*3/uL (0.1-1.2); Monocytes Percent Auto 9.7 % (2-11); Neutrophils Absolute Auto 5.2 x10*3/uL (2.0-8.3); Neutrophils Percent Auto 69.6 % (45-73); Platelet Count 106 X10*3/uL (160-400); Red Blood Count 4.36 X10*6/uL (4.60-5.80); Red Cell Distribution Width 15.9 % (11.0-16.0); White Blood Count 7.4 X10*3/uL (4.8-10.8)
[2022-10-22 07:56] LABS: Albumin Level 3.3 g/dL (3.5-5.0); Anion Gap 13 (12-20); Blood Urea Nitrogen 35 mg/dL (9-16); Calcium 8.8 mg/dL (8.4-10.2); Carbon Dioxide 25 mmol/L (22-29); Chloride 108 mmol/L (96-108); Cholesterol 167 mg/dL; Estimated Glomerular Filt Rate 45; Glucose Random 105 mg/dL (60-115); HDL Cholesterol 46 mg/dL; Iron 44 mcg/dL (45-160); Magnesium 2.1 mg/dL (1.6-2.6); Percent Iron Saturation 18 % (15-50); Phosphorus 3.6 mg/dL (2.7-4.5); Potassium 3.9 mmol/L (3.3-5.1); Sodium 142 mmol/L (135-145); Total Iron Binding Capacity 247 mcg/dL (228-428); Unsaturated Iron Binding 203 ug/dL
[2022-10-22 08:09] LABS: Ferritin 192 ng/mL (20-250)
[2022-10-22 10:49] LABS: Creatinine Urine 54.18 mg/dL; Microalbumin Urine < 5.0 mg/L
[2022-10-23 13:39] LABS: Calcium (PTHI) 8.6 mg/dL (8.6-10.3); PTHI 98 pg/mL (16-77)
== END 2022-10-22 06:59 | disposition home or self-care (01) ==
LOC: HO.HSH4E 06:58
PROVIDERS: Visit Provider Internal Medicine
DX: N18.9 Chronic kidney disease, unspecified (principal); D63.1 Anemia in chronic kidney disease; E87.6 Hypokalemia
CPT/HCPCS: 36415; 80048; 82040; 82043; 82465; 82728; 83540; 83718; 83735; 83970; 84100; 85025

== ENCOUNTER 2022-10-25 05:44 | Outpatient (REF) | payer MEDICARE, MEDICAID, SELFPAY ==
[2022-10-25 05:47] LABS: MANUAL DIFF FLAG NO
[2022-10-25 05:57] LABS: Basophils Percent Auto 0.3 % (0-2); Eosinophils Absolute Auto 0.1 X10*3/uL (0.0-0.4); Eosinophils Percent Auto 1.3 % (0-4); Hematocrit 40.9 % (42.0-52.0); Hemoglobin 13.1 g/dl (14.0-18.0); Imm Gran Abs Auto 0.02 X10*3/uL (0.00-0.03); Imm Gran Pct Auto 0.3 % (0.0-0.4); Lymphocytes Absolute Auto 1.5 X10*3/uL (1.2-4.9); Lymphocytes Percent Auto 19.8 % (20-40); Mean Corpuscular Volume 84.3 fL (80.0-98.0); Mean Platelet Volume 10.1 fL (9.4-12.4); Monocytes Absolute Auto 0.7 X10*3/uL (0.1-1.2); Monocytes Percent Auto 9.7 % (2-11); Neutrophils Absolute Auto 5.2 x10*3/uL (2.0-8.3); Neutrophils Percent Auto 68.6 % (45-73); Platelet Count 144 X10*3/uL (160-400); Red Blood Count 4.85 X10*6/uL (4.60-5.80); Red Cell Distribution Width 15.9 % (11.0-16.0); White Blood Count 7.6 X10*3/uL (4.8-10.8)
[2022-10-25 06:17] LABS: Alanine Aminotransferase 24 U/L (0-40); Albumin Level 3.9 g/dL (3.5-5.0); Alkaline Phosphatase 47 U/L (39-117); Anion Gap 13 (12-20); Aspartate Amino Transferase 19 U/L (5-37); Bilirubin Total 0.8 mg/dL (0.0-1.0); Blood Urea Nitrogen 32 mg/dL (9-16); Calcium 9.4 mg/dL (8.4-10.2); Carbon Dioxide 27 mmol/L (22-29); Chloride 107 mmol/L (96-108); Estimated Glomerular Filt Rate 45; Glucose Fasting 89 mg/dL (60-99); Potassium 4.2 mmol/L (3.3-5.1); Sodium 143 mmol/L (135-145); Total Protein 5.9 g/dL (6.5-8.0)
[2022-10-25 06:26] LABS: Lactate Dehydrogenase 376 U/L (118-273)
[2022-10-25 07:18] LABS: Erythrocyte Sedimentation Rate 2 MM/HR (0-15)
== END 2022-10-25 05:45 | disposition home or self-care (01) ==
LOC: HO.HSH4E 05:44
PROVIDERS: Visit Provider Internal Medicine
DX: D64.9 Anemia, unspecified (principal); N18.30 Chronic kidney disease, stage 3 unspecified; C85.90 Non-Hodgkin lymphoma, unspecified, unspecified site
CPT/HCPCS: 36415; 80053; 83615; 85025; 85652

== ENCOUNTER 2022-10-29 12:26 | Outpatient (REF) | payer MEDICARE, MEDICAID, SELFPAY ==
--- NOTE | ~2022-10-29 | US_ITS ---
EXAMINATION: US VENOUS RIGHT LOWER EXTREMITY (REFLUX EXAM) BILATERAL DVT VENOUS STUDY CLINICAL INDICATION: Chronic venous insufficiency with history of DVT on the left COMPARISON: 06/03/2022 TECHNIQUE: Color flow triplex imaging and compression Doppler was performed to evaluate both the deep and the superficial systems. A reflux exam was not done the left, but was only done on the right. To evaluate the superficial system, the examination was performed in the supine position. Color-flow Doppler ultrasound and compression ultrasound were utilized. In addition, maneuvers were utilized to demonstrate reflux. FINDINGS: 1. DEEP VENOUS ULTRASOUND OF THE RIGHT LOWER EXTREMITY: Respiratory variation, normal compression and augmented flow are noted in the right common femoral vein as well as the right popliteal vein and there is no evidence of deep venous thrombosis at these locations. There is no evidence of reflux in the deep system in either the common femoral vein or the popliteal vein. There is no evidence of a Zaidi's cyst. 2. SUPERFICIAL ULTRASOUND WITH DOPPLER OF RIGHT LOWER EXTREMITY: The right great saphenous vein at the saphenofemoral junction measures 9 mm, at the proximal thigh 4 mm, at the mid thigh 3 mm, above the knee 2 mm, at the knee 8 mm, [id number]-nst-ojcb 3 mm, midcalf 4 mm and at the ankle measures 3 mm. Reflux is present in the great saphenous vein in the proximal thigh to above the knee and then at the ankle. Reflux times are as high as 2 seconds Duplicated Right Great Saphenous Vein: Yes. There is a medial accessory and lateral accessory saphenous veins that measure 3 mm which do not reflux The right small saphenous vein was not seen. Accessory Vein of Giacomini: None Incompetent Perforators: None. There is a 4 mm muck miner in the distal calf which does not reflux. Varices Present: Thigh and calf varices measuring 0.3 cm are present with reflux times of up to 2.5 seconds. 3. DEEP VENOUS ULTRASOUND OF THE LEFT LOWER EXTREMITY: There is moderately extensive DVT present in the left leg with thrombus seen in the popliteal vein extending into the femoral vein and left common femoral vein. The veins in the calf were not visualized. On the 06/03/2022 study DVT was seen in the same veins. US/US venous duplex LE BI IMPRESSION: 1. No evidence of DVT in the right lower extremity. 2. Left leg DVT extending from the popliteal vein into the femoral vein similar to the 06/03/2022 study. 3. Right great saphenous venous insufficiency.
== END 2022-10-29 12:27 | disposition home or self-care (01) ==
LOC: HO.US 12:26
DX: Z13.89 Encounter for screening for other disorder (principal)
CPT/HCPCS: 93970

== ENCOUNTER 2022-10-29 14:44 | Emergency (ER) | payer OTHER, MEDICARE, MEDICAID, SELFPAY ==
[2022-10-29 15:16] VITALS: BP 167/97; PULSE 74; RESP 20; TEMP 36.4; O2SAT 96; BMI 54.3
--- NOTE | 2022-10-29 15:16 | ED_ITS ---
HPI - Extremity Problem General Chief complaint: General Medical Stated complaint: DVT Time Seen by Provider: 10/29/22 17:21 Source: patient Mode of arrival: ambulatory Limitations: no limitations History of Present Illness HPI Narrative: The 77-year-old male presents the emergency department after having an outpat ient ultrasound which was concerning for chronic DVT. Patient states he was found have a DVT back in May patient denies any pain denies any falls or injuries he denies chest pain cough nausea vomiting or diarrhea. I believe the patient is sent in because he has had some hemorrhoids with some rectal bleeding. MD Complaint: extremity swelling Related Data Home Medications Medication Instructions Recorded Confirmed Lactobacillus acidoph-L.bulgaricus 1 tab PO DAILY@59902/11/22 09/05/22 1 million cell tablet (Floranex) acetaminophen 325 mg tablet 650 mg PO BEDTIME 02/11/22 09/05/22 acetaminophen 325 mg tablet 650 mg PO Q6H PRN Pain, Mild (Pain 02/11/22 09/05/22 Scale 1-3)/FEVER aloe vera 5,000 mg capsule 20,000 mg PO DAILY@59902/11/22 09/05/22 ascorbic acid (vitamin C) 250 mg 500 mg PO DAILY@59902/11/22 09/05/22 tablet (Vitamin C) coenzyme Q10 200 mg capsule 200 mg PO DAILY@59902/11/22 09/05/22 dextromethorphan-guaifenesin 10 10 ml PO QID PRN Cough 02/11/22 09/05/22 mg-100 mg/5 mL oral syrup omega 7-ukl-wxb-fish oil 1,200 mg 2 cap PO DAILY@59902/11/22 09/05/22 (144 mg-216 mg) capsule (Fish Oil) psyllium husk 3.4 gram/5.4 gram 1 tbsp PO DAILY PRN Constipation 02/11/22 09/05/22 oral powder (Metamucil) vitamin E (dl, acetate) 180 mg 180 mg PO DAILY@59902/11/22 09/05/22 (400 unit) capsule Nature Fruits Cap 1 cap PO BID 06/03/22 09/05/22 Vital Protein Collagen Peptide 2 ea PO DAILY 06/03/22 09/05/22 docusate sodium 100 mg capsule 100 mg PO DAILY PRN Constipation 06/03/22 09/05/22 (Colace) ipratropium 0.5 mg-albuterol 3 mg 3 ml inhalation Q4H PRN Wheezing 06/03/22 09/05/22 (2.5 mg base)/3 mL nebulization soln prednisone 5 mg tablet 5 mg PO DAILY 09/05/22 09/05/22 Previous Rx's Medication Instructions Recorded bisacodyl 10 mg rectal suppository 10 mg AR DAILY PRN Constipation 06/05/20 (Gentle Laxative (bisacodyl)) #30 ea magnesium hydroxide 400 mg/5 mL 30 ml PO DAILY PRN Constipation 06/05/20 oral suspension (Milk of Magnesia) #300 mL magnesium oxide 400 mg (241.3 mg 400 mg PO DAILY@0600 #30 tabs 06/05/20 magnesium) tablet metoprolol succinate 100 mg 100 mg PO DAILY@0600 #30 tabs 06/05/20 tablet,extended release 24 hr metoprolol succinate 25 mg 25 mg PO DAILY@0600 #30 tabs 06/05/20 tablet,extended release 24 hr prednisone 10 mg tablet See Taper PO DIRECTED #11 tabs 09/09/22 rivaroxaban 15 mg tablet (Xarelto) 15 mg PO BID 21 days #42 tabs 10/29/22 rivaroxaban 20 mg tablet (Xarelto) 20 mg PO DAILY #30 tabs 10/29/22 Allergies Allergy/AdvReac Type Severity Reaction Status Date / Time cephalexin [From KEFLEX] Allergy Unknown UNKNOWN Verified 10/29/22 15:25 furosemide [From Lasix] Allergy Unknown Rash Verified 10/29/22 15:25 meropenem [MEROPENEM] Allergy Unknown UNKNOWN Verified 10/29/22 15:25 Penicillins [PENICILLINS] Allergy Unknown UNKNOWN Verified 10/29/22 15:25 sulfamethoxazole Allergy Unknown UNKNOWN Verified 10/29/22 15:25 [From BACTRIM] trimethoprim [From BACTRIM] Allergy Unknown UNKNOWN Verified 10/29/22 15:25 Review of Systems Review of Systems: Review of systems: General: Patient denies any fever chills recent illness or falls Musculoskeletal: Denies back pain or body aches or other injuries HEENT: denies headache, runny nose, ear pain Respiratory: denies shortness of breath, cough Cardiovascular: no chest pain or palpitations : denies dysuria, frequency Abdomen: no nausea vomiting denies abdominal pain Extremities: no swelling, no pain Skin: no diaphoresis Yes all other systems are reviewed and are negative PMFSH Past Medical History Medical History Anemia, unspecified B-cell lymphoma Cellulitis of leg Chronic a-fib COPD (chronic obstructive pulmonary disease) Dermatitis Edema Hammer toes of both feet Hearing loss Impaired fasting glucose Mild cognitive impairment Morbid obesity Nail dystrophy Osteoarthritis Pain in right shoulder Stage 3 chronic kidney disease Unspecified atherosclerosis of [place] arteries of extremities, bilateral legs Surgical History No pertinent past surgical history Family History Family History Other No family history of coronary artery disease Social History Social History Household Members: Other Housing: Skilled Nursing Do you presently have visiting nurse or other home services: No Alcohol intake: never Patient Tobacco Use Status: Former Tobacco user Tobacco use type: Cigarette Second Hand Smoke Exposure: No Advance Directives: Yes Advance Directives on File: Yes Advance Directives Date on File: 06/04/22 service: Yes Current occupational status: retired Physical Exam Vital Signs: Vital Signs: Last Vital Signs Temp 97.5 F 10/29/22 15:16 Pulse 74 10/29/22 15:16 Resp 20 10/29/22 15:16 BP 167/97 H 10/29/22 15:16 Pulse Ox 96 10/29/22 15:16 O2 Del Method Room Air 10/29/22 15:16 BMI result Body Mass Index 54.3 General: Well-appearing well-nourished in no signs of distress HEENT: Normocephalic atraumatic Neck: No signs of JVD, no masses no tenderness or lymphadenopathy Cardiovascular: Regular rate and rhythm Respiratory: Clear to auscultation bilaterally Abdomen: Soft nontender no masses Extremities: Normal pedal pulses chronic venous stasis changes to bilateral legs no tenderness to palpation no signs of infection nontender Skin: Dry warm no rashes Back: No tenderness full ROM Course Course Course Narrative: RME - 77 yo male with history of afib, COPD, obesity, CKD III, B-cell lymphoma, hx LLE DVT, hx RLE DVT s/p thrombectomy, unsure if on anticoagulation (p reviously on Eliquis but not seen on med list in triage) who presents to the ER for evaluation of + DVT study today. Hx BRBPR today due to hemorrhoids. Plan: determine up to date med list, await official read, ?chronic/calcified DVT on prelim read. 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 Differential Diagnosis Differential Diagnoses: The differential diagnosis associated with the presentation includes DVT or left leg strain or chronic DVT he felt to restart the xarelto and [facility] for [facility]. Admission/Observation Consideration of admission/observation: Escalation of care including admission/observation considered Consult Healthcare Provider Management of the patient was discussed with: Software Engineer Sales Dr. Lackey about the extensive chronic clot since th patient isn't on anticoagulation Lab Data [facility] Lab Attestation statement: I reviewed the patient's lab results. 10/29/22 18:04 10/29/22 18:04 Labs: Lab Results 10/29/22 10/29/22 10/29/22 Range/Units 18:04 18:04 18:04 WBC 6.7 (4.8-10.8) X10*3/uL RBC 4.75 (4.60-5.80) X10*6/uL Hgb 13.1 L (14.0-18.0) g/dl Hct 41.4 L (42.0-52.0) % MCV 87.2 (80.0-98.0) fL MCH 27.6 (27.0-33.0) pg MCHC 31.6 (31.0-36.0) g/dl RDW 16.0 (11.0-16.0) % Plt Count 139 L (160-400) X10*3/uL MPV 10.0 (9.4-12.4) fL Immature Gran % (Auto) 0.3 (0.0-0.4) % Neut % (Auto) 84.6 H (45-73) % Lymph % (Auto) 9.4 L (20-40) % [place] % (Auto) 5.5 (2-11) % Eos % (Auto) 0.1 (0-4) % Baso % (Auto) 0.1 (0-2) % Lymph # (Auto) 0.6 L (1.2-4.9) X10*3/uL [place] # (Auto) 0.4 (0.1-1.2) X10*3/uL Eos # (Auto) 0.0 (0.0-0.4) X10*3/uL Baso # (Auto) 0.0 (0.0-0.2) X10*3/uL Abs Immat Gran (auto) 0.02 (0.00-0.03) X10*3/uL Absolute Neuts (auto) 5.7 (2.0-8.3) x10*3/uL Absolute Nucleated RBC 0.000 (0.0-0.012) X10*3/uL Nucleated RBC % (auto) 0.0 (0.0-0.2) /100WBC PT 10.8 (10.0-13.1) SEC INR 0.9 (0.9-1.1) Sodium 141 (135-145) mmol/L Potassium 4.8 (3.3-5.1) mmol/L Chloride 105 (96-108) mmol/L Carbon Dioxide 26 (22-29) mmol/L Anion Gap 15 (12-20) BUN 34 H (9-16) mg/dL Creatinine 1.42 H (0.5-1.4) mg/dL Estim Creat Clear Calc 68.3 Estimated GFR 48 Random Glucose 151 H (60-115) mg/dL Calcium 9.4 (8.4-10.2) mg/dL Independent Interpretation I performed an independent interpretation of an: Ultrasound Radiology Impression Discussion of test interpretation with radiology: I have reviewed the radiologist's reading. External Record Review External record reviewed: Inpatient record Patient found to have a DVT is pretty extensive the left leg back in May. Social Determinants Patient?s care significantly limited by Social Determinants of Health including: Inadequate housing Discharge Plan Discharge Clinical Impression: DVT, lower extremity Patient Disposition: Home, Self-Care Instructions: Deep Vein Thrombosis (ED), Deep Vein Thrombosis Prevention (ED) Additional Instructions: Please take the xarelto. If you have any other concerns pleas return to the ED. Prescriptions: New Xarelto 15 mg tablet 15 mg PO BID 21 Days Qty: 42 0RF Rx Instructions: Please take for 21 days then 20 mg daily Xarelto 20 mg tablet 20 mg PO DAILY Qty: 30 0RF Rx Instructions: must administer with evening meal No Action metoprolol succinate 100 mg Tablet Extended Release 24 Hr 100 mg PO DAILY@0600 Qty: 30 0RF Rx Instructions: TDD = 125 MG magnesium oxide 400 mg (241.3 mg magnesium) Tablet 400 mg PO DAILY@0600 Qty: 30 0RF magnesium hydroxide [Milk of Magnesia] 400 mg/5 mL Suspension 30 ml PO DAILY PRN (Reason: Constipation) Qty: 300 0RF bisacodyl [Gentle Laxative (bisacodyl)] 10 mg Suppository 10 mg AR DAILY PRN (Reason: Constipation) Qty: 30 0RF metoprolol succinate 25 mg Tablet Extended Release 24 Hr 25 mg PO DAILY@0600 Qty: 30 0RF Rx Instructions: TDD = 125 MG acetaminophen 325 mg Tablet 650 mg PO BEDTIME dextromethorphan-guaifenesin 10-100 mg/5 mL Syrup 10 ml PO QID PRN (Reason: Cough) ascorbic acid (vitamin C) [Vitamin C] 250 mg Tablet 500 mg PO DAILY@0600 aloe vera 5,000 mg Capsule 20,000 mg PO DAILY@0600 coenzyme Q10 200 mg Capsule 200 mg PO DAILY@0600 vitamin E (dl, acetate) 180 mg (400 unit) Capsule 180 mg PO DAILY@0600 omega 0-jsa-jmm-fish oil [Fish Oil] 1,200 (144-216) mg Capsule 2 cap PO DAILY@0600 Lactobacillus acidoph-L.bulgar [Floranex] 1 million cell Tablet 1 tab PO DAILY@0600 Metamucil 3.4 gram/5.4 gram Powder 1 tbsp PO DAILY PRN (Reason: Constipation) Rx Instructions: mix into at least 8 oz of water or juice before administering acetaminophen 325 mg tablet 650 mg PO Q6H PRN (Reason: Pain, Mild (Pain Scale 1-3)/FEVER) ipratropium-albuterol 0.5 mg-3 mg(2.5 mg base)/3 mL Solution For Nebulization 3 ml INHALATION Q4H PRN (Reason: Wheezing) docusate sodium [Colace] 100 mg Capsule 100 mg PO DAILY PRN (Reason: Constipation) Nature Fruits Cap 1 cap PO BID Vital Protein Collagen Peptide 2 ea PO DAILY Rx Instructions: mix with hot coffee or tea prednisone 5 mg Tablet 5 mg PO DAILY prednisone 10 mg tablet See Taper PO DIRECTED Qty: 11 0RF Taper: Prednisone 40 mg daily for 1 Day and 0 Hour 30 mg daily for 1 Day and 0 Hour 20 mg daily for 1 Day and 0 Hour 10 mg daily for 2 Days and 0 Hour Rx Instructions: see taper instructions
[2022-10-29 18:09] LABS: MANUAL DIFF FLAG NO
[2022-10-29 18:20] LABS: INTERNATIONAL NORM RATIO 0.9 (0.9-1.1); Prothrombin Time 10.8 SEC (10.0-13.1)
[2022-10-29 18:26] LABS: Basophils Percent Auto 0.1 % (0-2); Eosinophils Percent Auto 0.1 % (0-4); Hematocrit 41.4 % (42.0-52.0); Hemoglobin 13.1 g/dl (14.0-18.0); Imm Gran Abs Auto 0.02 X10*3/uL (0.00-0.03); Imm Gran Pct Auto 0.3 % (0.0-0.4); Lymphocytes Absolute Auto 0.6 X10*3/uL (1.2-4.9); Lymphocytes Percent Auto 9.4 % (20-40); Mean Corpuscular HGB Conc 31.6 g/dl (31.0-36.0); Mean Corpuscular Hemoglobin 27.6 pg (27.0-33.0); Mean Corpuscular Volume 87.2 fL (80.0-98.0); Monocytes Absolute Auto 0.4 X10*3/uL (0.1-1.2); Monocytes Percent Auto 5.5 % (2-11); Neutrophils Absolute Auto 5.7 x10*3/uL (2.0-8.3); Neutrophils Percent Auto 84.6 % (45-73); Platelet Count 139 X10*3/uL (160-400); Red Blood Count 4.75 X10*6/uL (4.60-5.80); White Blood Count 6.7 X10*3/uL (4.8-10.8)
[2022-10-29 18:30] LABS: Anion Gap 15 (12-20); Blood Urea Nitrogen 34 mg/dL (9-16); Calcium 9.4 mg/dL (8.4-10.2); Carbon Dioxide 26 mmol/L (22-29); Chloride 105 mmol/L (96-108); Creatinine Clr Calc Pharmacy 68.3; Estimated Glomerular Filt Rate 48; Glucose Random 151 mg/dL (60-115); Potassium 4.8 mmol/L (3.3-5.1); Sodium 141 mmol/L (135-145)
[2022-10-29 19:30] VITALS: BP 165/81; PULSE 91; RESP 13; TEMP 36.4; O2SAT 98
--- NOTE | 2022-10-29 20:19 | PC.NURSE ---
Called [facility]. Spoke with nurse on his floor. Stated that he is able to return. Verbal instructions for Xaralto for DVT. Nurse verbalized understanding. [facility]
== END 2022-10-29 20:51 | disposition home or self-care (01) ==
PROVIDERS: Emergency Provider Student in an Organized Health Care Education/Training Program
DX: I82.402 Acute embolism and thrombosis of unspecified deep veins of left lower extremity (principal); I48.20 Chronic atrial fibrillation, unspecified; Z86.718 Personal history of other venous thrombosis and embolism
CPT/HCPCS: 36415; 80048; 85025; 85610; 93970; 99284

== ENCOUNTER 2023-01-10 05:35 | Outpatient (REF) | payer MEDICARE, MEDICAID, SELFPAY ==
[2023-01-10 07:33] LABS: Vitamin D 25-OH Total 40.4 ng/mL (>30)
== END 2023-01-10 05:36 | disposition home or self-care (01) ==
LOC: HO.HSH4E 05:35
PROVIDERS: Visit Provider Internal Medicine
DX: N18.9 Chronic kidney disease, unspecified (principal); E55.9 Vitamin D deficiency, unspecified
CPT/HCPCS: 36415; 82306

== ENCOUNTER 2023-01-14 05:46 | Outpatient (REF) | payer MEDICARE, MEDICAID, SELFPAY ==
[2023-01-14 07:30] LABS: Alanine Aminotransferase 14 U/L (0-40); Albumin Level 3.4 g/dL (3.5-5.0); Alkaline Phosphatase 53 U/L (39-117); Anion Gap 12 (12-20); Aspartate Amino Transferase 18 U/L (5-37); Bilirubin Total 0.4 mg/dL (0.0-1.0); Blood Urea Nitrogen 28 mg/dL (9-16); Calcium 9.4 mg/dL (8.4-10.2); Carbon Dioxide 27 mmol/L (22-29); Chloride 105 mmol/L (96-108); Estimated Glomerular Filt Rate 48; Glucose Fasting 100 mg/dL (60-99); Phosphorus 3.5 mg/dL (2.7-4.5); Potassium 4.1 mmol/L (3.3-5.1); Sodium 140 mmol/L (135-145); Total Protein 5.5 g/dL (6.5-8.0)
[2023-01-14 07:32] LABS: Appearance Urine Clear; Color Urine Yellow; Glucose Urine UA Negative (Negative); Leukocyte Esterase Urine Trace (Negative); Nitrite Urine Negative (Negative); PH 5.5 (5.0-9.0); UMIC TRIGGER UACC YES; Urine Blood Negative (Negative); Urine Ketones Negative (Negative); Urine Protein Negative (Neg-Trace)
[2023-01-14 07:38] LABS: Bacteria Urine None Seen (None Seen); Hyaline Casts Urine 0-2 /LPF (0-2); RBC Urine 0-2 /HPF (0-2); Squamous Epithelial Cell Urine 0-2 /HPF (0-2); WBC Urine 0-5 /HPF (0-5)
[2023-01-14 07:39] LABS: Microalbumin Urine < 5.0 mg/L
== END 2023-01-14 05:47 | disposition home or self-care (01) ==
LOC: HO.HSH4E 05:46
PROVIDERS: Visit Provider Internal Medicine
DX: N18.9 Chronic kidney disease, unspecified (principal); R73.01 Impaired fasting glucose
CPT/HCPCS: 36415; 80053; 81001; 82043; 84100

== ENCOUNTER 2023-02-28 07:17 | Outpatient (REF) | payer MEDICARE, MEDICAID, SELFPAY | END 2023-02-28 07:18 | disposition home or self-care (01) | LOC: HO.RESP 07:17 | PROVIDERS: Visit Provider Internal Medicine | DX: R06.2 Wheezing (principal); R06.02 Shortness of breath | CPT/HCPCS: 94010; 94727 ==

== ENCOUNTER → 2023-02-28 07:25 | Outpatient (BNV) | payer MEDICARE, MEDICAID, SELFPAY | PROVIDERS: Visit Provider Hospitalist | DX: R06.09 Other forms of dyspnea (principal) | CPT/HCPCS: 94060; 94727; 94729 ==

== ENCOUNTER 2023-04-03 07:04 | Outpatient (REF) | payer MEDICARE, MEDICAID, SELFPAY ==
[2023-04-03 07:23] LABS: MANUAL DIFF FLAG NO
[2023-04-03 07:28] LABS: Basophils Percent Auto 0.8 % (0-2); Eosinophils Absolute Auto 0.4 X10*3/uL (0.0-0.4); Eosinophils Percent Auto 7.4 % (0-4); Hematocrit 38.1 % (42.0-52.0); Imm Gran Abs Auto 0.01 X10*3/uL (0.00-0.03); Imm Gran Pct Auto 0.2 % (0.0-0.4); Immature Retic Fraction 19.1 % (2.3-13.4); Lymphocytes Absolute Auto 1.1 X10*3/uL (1.2-4.9); Lymphocytes Percent Auto 20.5 % (20-40); Mean Corpuscular HGB Conc 31.5 g/dl (31.0-36.0); Mean Corpuscular Volume 85.8 fL (80.0-98.0); Mean Platelet Volume 9.8 fL (9.4-12.4); Monocytes Absolute Auto 0.6 X10*3/uL (0.1-1.2); Monocytes Percent Auto 11.8 % (2-11); Neutrophils Absolute Auto 3.1 x10*3/uL (2.0-8.3); Neutrophils Percent Auto 59.3 % (45-73); Platelet Count 214 X10*3/uL (160-400); Red Blood Count 4.44 X10*6/uL (4.60-5.80); Red Cell Distribution Width 15.4 % (11.0-16.0); Retic HGB Equivalent 29.7 pg (30.0-35.0); Reticulocyte Percent 1.6 % (0.5-1.8); White Blood Count 5.3 X10*3/uL (4.8-10.8)
[2023-04-03 07:50] LABS: Iron 43 mcg/dL (45-160); Percent Iron Saturation 13 % (15-50); Total Iron Binding Capacity 324 mcg/dL (228-428); Unsaturated Iron Binding 281 ug/dL
[2023-04-03 08:06] LABS: Ferritin 132 ng/mL (20-250); Thyroid Stimulating Hormone 3.24 uIU/mL (0.32-4.0)
[2023-04-03 08:16] LABS: Folate 4.4 ng/mL (> or = 4.0); Vitamin B12 310 pg/mL (200-900)
== END 2023-04-03 07:05 | disposition home or self-care (01) ==
LOC: HO.HSH4E 07:04
PROVIDERS: Visit Provider Internal Medicine
DX: D64.9 Anemia, unspecified (principal); N18.9 Chronic kidney disease, unspecified
CPT/HCPCS: 36415; 82607; 82728; 82746; 83540; 84443; 85025; 85045

== ENCOUNTER 2023-04-09 04:59 | Outpatient (REF) | payer MEDICARE, MEDICAID, SELFPAY ==
[2023-04-09 06:21] LABS: MANUAL DIFF FLAG NO
[2023-04-09 06:38] LABS: Basophils Absolute Auto 0.1 X10*3/uL (0.0-0.2); Basophils Percent Auto 1.3 % (0-2); Eosinophils Absolute Auto 0.3 X10*3/uL (0.0-0.4); Eosinophils Percent Auto 7.4 % (0-4); Hemoglobin 11.1 g/dl (14.0-18.0); Imm Gran Abs Auto 0.01 X10*3/uL (0.00-0.03); Imm Gran Pct Auto 0.2 % (0.0-0.4); Mean Corpuscular HGB Conc 31.7 g/dl (31.0-36.0); Mean Corpuscular Hemoglobin 26.8 pg (27.0-33.0); Mean Corpuscular Volume 84.5 fL (80.0-98.0); Mean Platelet Volume 9.3 fL (9.4-12.4); Monocytes Absolute Auto 0.7 X10*3/uL (0.1-1.2); Monocytes Percent Auto 14.9 % (2-11); Neutrophils Absolute Auto 2.5 x10*3/uL (2.0-8.3); Neutrophils Percent Auto 55.2 % (45-73); Platelet Count 169 X10*3/uL (160-400); Red Blood Count 4.14 X10*6/uL (4.60-5.80); Red Cell Distribution Width 15.8 % (11.0-16.0); White Blood Count 4.6 X10*3/uL (4.8-10.8)
[2023-04-09 06:46] LABS: Iron 47 mcg/dL (45-160); Percent Iron Saturation 17 % (15-50); Total Iron Binding Capacity 283 mcg/dL (228-428); Unsaturated Iron Binding 236 ug/dL
[2023-04-09 06:59] LABS: Ferritin 112 ng/mL (20-250)
== END 2023-04-09 05:00 | disposition home or self-care (01) ==
LOC: HO.HSH4E 04:59
PROVIDERS: Visit Provider Internal Medicine
DX: D64.9 Anemia, unspecified (principal); K62.5 Hemorrhage of anus and rectum
CPT/HCPCS: 36415; 82728; 83540; 85025

== ENCOUNTER 2023-05-02 05:02 | Outpatient (REF) | payer MEDICARE, MEDICAID, SELFPAY ==
[2023-05-02 06:08] LABS: MANUAL DIFF FLAG NO
[2023-05-02 06:27] LABS: Basophils Absolute Auto 0.1 X10*3/uL (0.0-0.2); Basophils Percent Auto 1.1 % (0-2); Eosinophils Absolute Auto 0.4 X10*3/uL (0.0-0.4); Eosinophils Percent Auto 7.5 % (0-4); Hematocrit 39.9 % (42.0-52.0); Hemoglobin 12.6 g/dl (14.0-18.0); Imm Gran Abs Auto 0.01 X10*3/uL (0.00-0.03); Imm Gran Pct Auto 0.2 % (0.0-0.4); Lymphocytes Absolute Auto 1.4 X10*3/uL (1.2-4.9); Lymphocytes Percent Auto 25.4 % (20-40); Mean Corpuscular HGB Conc 31.6 g/dl (31.0-36.0); Mean Corpuscular Hemoglobin 26.6 pg (27.0-33.0); Mean Corpuscular Volume 84.4 fL (80.0-98.0); Mean Platelet Volume 9.6 fL (9.4-12.4); Monocytes Absolute Auto 0.6 X10*3/uL (0.1-1.2); Monocytes Percent Auto 10.7 % (2-11); Neutrophils Absolute Auto 2.9 x10*3/uL (2.0-8.3); Neutrophils Percent Auto 55.1 % (45-73); Platelet Count 181 X10*3/uL (160-400); Red Blood Count 4.73 X10*6/uL (4.60-5.80); Red Cell Distribution Width 15.9 % (11.0-16.0); White Blood Count 5.3 X10*3/uL (4.8-10.8)
[2023-05-02 06:44] LABS: Alanine Aminotransferase 9 U/L (0-40); Alkaline Phosphatase 67 U/L (39-117); Anion Gap 13 (12-20); Aspartate Amino Transferase 23 U/L (5-37); Bilirubin Total 0.6 mg/dL (0.0-1.0); Blood Urea Nitrogen 28 mg/dL (9-16); Calcium 9.7 mg/dL (8.4-10.2); Carbon Dioxide 24 mmol/L (22-29); Chloride 110 mmol/L (96-108); Estimated Glomerular Filt Rate 49; Glucose Fasting 100 mg/dL (60-99); Potassium 4.3 mmol/L (3.3-5.1); Sodium 143 mmol/L (135-145); Total Protein 6.9 g/dL (6.5-8.0)
[2023-05-02 06:57] LABS: Thyroid Stimulating Hormone 2.67 uIU/mL (0.32-4.0)
[2023-05-02 07:01] LABS: Erythrocyte Sedimentation Rate 11 MM/HR (0-15)
== END 2023-05-02 05:03 | disposition home or self-care (01) ==
LOC: HO.HSH4E 05:02
PROVIDERS: Visit Provider Internal Medicine
DX: D64.9 Anemia, unspecified (principal); R63.4 Abnormal weight loss
CPT/HCPCS: 36415; 80053; 84443; 85025; 85652

== ENCOUNTER 2023-06-17 05:20 | Outpatient (REF) | payer MEDICARE, MEDICAID, SELFPAY ==
[2023-06-17 06:52] LABS: Alanine Aminotransferase 13 U/L (0-40); Albumin Level 3.4 g/dL (3.5-5.0); Alkaline Phosphatase 62 U/L (39-117); Anion Gap 10 (12-20); Aspartate Amino Transferase 18 U/L (5-37); Bilirubin Total 0.4 mg/dL (0.0-1.0); Blood Urea Nitrogen 35 mg/dL (9-16); Calcium 9.1 mg/dL (8.4-10.2); Carbon Dioxide 25 mmol/L (22-29); Chloride 110 mmol/L (96-108); Estimated Glomerular Filt Rate 45; Glucose Fasting 96 mg/dL (60-99); Phosphorus 4.1 mg/dL (2.7-4.5); Potassium 4.2 mmol/L (3.3-5.1); Sodium 141 mmol/L (135-145); Total Protein 5.9 g/dL (6.5-8.0)
== END 2023-06-17 05:21 | disposition home or self-care (01) ==
LOC: HO.HSH4E 05:20
PROVIDERS: Visit Provider Internal Medicine
DX: N18.9 Chronic kidney disease, unspecified (principal)
CPT/HCPCS: 36415; 80053; 83735; 84100

== ENCOUNTER 2023-07-15 07:37 | Outpatient (REF) | payer MEDICARE, MEDICAID, SELFPAY ==
[2023-07-15 08:10] LABS: Creatinine Urine 60.03 mg/dL; Microalbumin Urine < 5.0 mg/L
== END 2023-07-15 07:38 | disposition home or self-care (01) ==
LOC: HO.HSH4E 07:37
PROVIDERS: Visit Provider Internal Medicine
DX: N18.30 Chronic kidney disease, stage 3 unspecified (principal); R73.01 Impaired fasting glucose
CPT/HCPCS: 82043; 82570

== ENCOUNTER 2023-07-16 05:01 | Outpatient (REF) | payer MEDICARE, MEDICAID, SELFPAY ==
[2023-07-16 05:36] LABS: Basophils Percent Auto 0.8 % (0-2); Eosinophils Absolute Auto 0.4 X10*3/uL (0.0-0.4); Eosinophils Percent Auto 7.6 % (0-4); Hematocrit 36.7 % (42.0-52.0); Hemoglobin 11.9 g/dl (14.0-18.0); Imm Gran Abs Auto 0.01 X10*3/uL (0.00-0.03); Imm Gran Pct Auto 0.2 % (0.0-0.4); Lymphocytes Absolute Auto 1.3 X10*3/uL (1.2-4.9); Lymphocytes Percent Auto 24.8 % (20-40); MANUAL DIFF FLAG NO; Mean Corpuscular HGB Conc 32.4 g/dl (31.0-36.0); Mean Corpuscular Hemoglobin 27.4 pg (27.0-33.0); Mean Corpuscular Volume 84.4 fL (80.0-98.0); Mean Platelet Volume 9.2 fL (9.4-12.4); Monocytes Absolute Auto 0.6 X10*3/uL (0.1-1.2); Monocytes Percent Auto 11.6 % (2-11); Neutrophils Absolute Auto 2.9 x10*3/uL (2.0-8.3); Platelet Count 136 X10*3/uL (160-400); Red Blood Count 4.35 X10*6/uL (4.60-5.80); Red Cell Distribution Width 15.8 % (11.0-16.0); White Blood Count 5.2 X10*3/uL (4.8-10.8)
[2023-07-16 05:59] LABS: Anion Gap 12 (12-20); Blood Urea Nitrogen 31 mg/dL (9-16); Calcium 8.9 mg/dL (8.4-10.2); Carbon Dioxide 25 mmol/L (22-29); Chloride 109 mmol/L (96-108); Estimated Glomerular Filt Rate 49; Glucose Fasting 90 mg/dL (60-99); Iron 52 mcg/dL (45-160); Percent Iron Saturation 20 % (15-50); Potassium 4.2 mmol/L (3.3-5.1); Sodium 142 mmol/L (135-145); Total Iron Binding Capacity 258 mcg/dL (228-428); Unsaturated Iron Binding 206 ug/dL
[2023-07-16 06:14] LABS: Ferritin 99 ng/mL (20-250)
== END 2023-07-16 05:02 | disposition home or self-care (01) ==
LOC: HO.HSH4E 05:01
PROVIDERS: Visit Provider Internal Medicine
DX: D64.9 Anemia, unspecified (principal); N18.9 Chronic kidney disease, unspecified
CPT/HCPCS: 36415; 80048; 82728; 83540; 85025

== ENCOUNTER 2023-08-01 05:52 | Outpatient (REF) | payer MEDICARE, MEDICAID, SELFPAY ==
[2023-08-01 06:10] LABS: Basophils Percent Auto 0.5 % (0-2); Eosinophils Absolute Auto 0.5 X10*3/uL (0.0-0.4); Hematocrit 37.9 % (42.0-52.0); Hemoglobin 12.5 g/dl (14.0-18.0); Imm Gran Abs Auto 0.03 X10*3/uL (0.00-0.03); Imm Gran Pct Auto 0.5 % (0.0-0.4); Lymphocytes Percent Auto 16.5 % (20-40); MANUAL DIFF FLAG NO; Mean Corpuscular Hemoglobin 28.2 pg (27.0-33.0); Mean Corpuscular Volume 85.4 fL (80.0-98.0); Mean Platelet Volume 9.1 fL (9.4-12.4); Monocytes Absolute Auto 0.8 X10*3/uL (0.1-1.2); Monocytes Percent Auto 14.4 % (2-11); Neutrophils Absolute Auto 3.5 x10*3/uL (2.0-8.3); Neutrophils Percent Auto 60.1 % (45-73); Platelet Count 149 X10*3/uL (160-400); Red Blood Count 4.44 X10*6/uL (4.60-5.80); Red Cell Distribution Width 15.9 % (11.0-16.0); White Blood Count 5.8 X10*3/uL (4.8-10.8)
[2023-08-01 06:23] LABS: Anion Gap 13 (12-20); Blood Urea Nitrogen 28 mg/dL (9-16); Calcium 9.1 mg/dL (8.4-10.2); Carbon Dioxide 25 mmol/L (22-29); Chloride 108 mmol/L (96-108); Estimated Glomerular Filt Rate 51; Glucose Random 94 mg/dL (60-115); Potassium 4.3 mmol/L (3.3-5.1); Sodium 142 mmol/L (135-145)
[2023-08-01 08:33] LABS: B Type Natriuretic Peptide 70 pg/mL (<100)
== END 2023-08-01 05:53 | disposition home or self-care (01) ==
LOC: HO.HSH4E 05:52
PROVIDERS: Visit Provider Internal Medicine
DX: R06.2 Wheezing (principal)
CPT/HCPCS: 36415; 80048; 83880; 85025

== ENCOUNTER 2023-08-12 13:43 | Outpatient (REF) | payer MEDICARE, MEDICAID, SELFPAY ==
[2023-08-12 15:07] LABS: Adenovirus PCR Not Detected (Not Detect.); Bordetella parapertussis PCR Not Detected (Not Detect.); Bordetella pertussis PCR Not Detected (Not Detect.); Chlamydia pneumoniae PCR Not Detected (Not Detect.); Coronavirus 229E PCR Not Detected (Not Detect.); Coronavirus HKU1 PCR Not Detected (Not Detect.); Coronavirus NL63 PCR Not Detected (Not Detect.); Coronavirus OC43 PCR Detected (Not Detect.); Human metapneumovirus PCR Not Detected (Not Detect.); Influenza B PCR Not Detected (Not Detect.); Mycoplasma pneumoniae PCR Not Detected (Not Detect.); Parainfluenza 1 PCR Not Detected (Not Detect.); Parainfluenza 2 PCR Not Detected (Not Detect.); Parainfluenza 3 PCR Not Detected (Not Detect.); Parainfluenza 4 PCR Not Detected (Not Detect.); RSV PCR Not Detected (Not Detect.); Rhino/Enterovirus PCR Not Detected (Not Detect.)
[2023-08-12 15:12] LABS: Influenza A PCR Detected (Not Detect.); SARS-CoV-2 PCR Not Detected (Not Detect.)
== END 2023-08-12 13:44 | disposition home or self-care (01) ==
LOC: HO.HSH4E 13:43
PROVIDERS: Visit Provider Internal Medicine
DX: J10.1 Influenza due to other identified influenza virus with other respiratory manifestations (principal); R06.2 Wheezing; R05.1 Acute cough; R06.02 Shortness of breath
CPT/HCPCS: 87633

== ENCOUNTER 2023-09-01 05:55 | Outpatient (REF) | payer MEDICARE, MEDICAID, SELFPAY ==
[2023-09-01 06:31] LABS: MANUAL DIFF FLAG NO
[2023-09-01 06:40] LABS: Basophils Percent Auto 0.4 % (0-2); Eosinophils Absolute Auto 0.3 X10*3/uL (0.0-0.4); Eosinophils Percent Auto 3.9 % (0-4); Hematocrit 39.6 % (42.0-52.0); Hemoglobin 12.9 g/dl (14.0-18.0); Imm Gran Abs Auto 0.01 X10*3/uL (0.00-0.03); Imm Gran Pct Auto 0.1 % (0.0-0.4); Lymphocytes Percent Auto 29.1 % (20-40); Mean Corpuscular HGB Conc 32.6 g/dl (31.0-36.0); Mean Corpuscular Hemoglobin 27.9 pg (27.0-33.0); Mean Corpuscular Volume 85.7 fL (80.0-98.0); Mean Platelet Volume 10.1 fL (9.4-12.4); Monocytes Absolute Auto 0.6 X10*3/uL (0.1-1.2); Monocytes Percent Auto 8.6 % (2-11); Neutrophils Absolute Auto 3.9 x10*3/uL (2.0-8.3); Neutrophils Percent Auto 57.9 % (45-73); Platelet Count 133 X10*3/uL (160-400); Red Blood Count 4.62 X10*6/uL (4.60-5.80); Red Cell Distribution Width 15.2 % (11.0-16.0); White Blood Count 6.7 X10*3/uL (4.8-10.8)
[2023-09-01 07:09] LABS: Alanine Aminotransferase 21 U/L (0-40); Albumin Level 3.5 g/dL (3.5-5.0); Alkaline Phosphatase 52 U/L (39-117); Anion Gap 10 (12-20); Aspartate Amino Transferase 18 U/L (5-37); Bilirubin Total 0.6 mg/dL (0.0-1.0); Blood Urea Nitrogen 33 mg/dL (9-16); Calcium 8.9 mg/dL (8.4-10.2); Carbon Dioxide 26 mmol/L (22-29); Chloride 109 mmol/L (96-108); Estimated Glomerular Filt Rate 49; Glucose Random 92 mg/dL (60-115); Iron 76 mcg/dL (45-160); Percent Iron Saturation 29 % (15-50); Potassium 4.3 mmol/L (3.3-5.1); Sodium 141 mmol/L (135-145); Total Iron Binding Capacity 263 mcg/dL (228-428); Total Protein 5.8 g/dL (6.5-8.0); Unsaturated Iron Binding 187 ug/dL
[2023-09-01 07:20] LABS: Ferritin 161 ng/mL (20-250)
== END 2023-09-01 05:56 | disposition home or self-care (01) ==
LOC: HO.HSH4E 05:55
PROVIDERS: Visit Provider Internal Medicine
DX: N18.9 Chronic kidney disease, unspecified (principal); D64.9 Anemia, unspecified; R03.0 Elevated blood-pressure reading, without diagnosis of hypertension
CPT/HCPCS: 36415; 80053; 82728; 83540; 85025

== ENCOUNTER 2023-10-10 06:29 | Outpatient (REF) | payer MEDICARE, MEDICAID, SELFPAY ==
[2023-10-10 06:38] LABS: MANUAL DIFF FLAG NO
[2023-10-10 07:05] LABS: Basophils Absolute Auto 0.1 X10*3/uL (0.0-0.2); Basophils Percent Auto 0.9 % (0-2); Eosinophils Absolute Auto 0.4 X10*3/uL (0.0-0.4); Hematocrit 37.5 % (42.0-52.0); Hemoglobin 12.5 g/dl (14.0-18.0); Imm Gran Abs Auto 0.01 X10*3/uL (0.00-0.03); Imm Gran Pct Auto 0.2 % (0.0-0.4); Lymphocytes Absolute Auto 1.3 X10*3/uL (1.2-4.9); Lymphocytes Percent Auto 21.5 % (20-40); Mean Corpuscular HGB Conc 33.3 g/dl (31.0-36.0); Mean Corpuscular Hemoglobin 29.4 pg (27.0-33.0); Mean Corpuscular Volume 88.2 fL (80.0-98.0); Mean Platelet Volume 9.7 fL (9.4-12.4); Monocytes Absolute Auto 0.8 X10*3/uL (0.1-1.2); Monocytes Percent Auto 14.1 % (2-11); Neutrophils Absolute Auto 3.3 x10*3/uL (2.0-8.3); Neutrophils Percent Auto 56.3 % (45-73); Platelet Count 163 X10*3/uL (160-400); Red Blood Count 4.25 X10*6/uL (4.60-5.80); Red Cell Distribution Width 15.2 % (11.0-16.0); White Blood Count 5.8 X10*3/uL (4.8-10.8)
[2023-10-10 07:40] LABS: Alanine Aminotransferase 11 U/L (0-40); Albumin Level 3.6 g/dL (3.5-5.0); Alkaline Phosphatase 62 U/L (39-117); Anion Gap 15 (12-20); Aspartate Amino Transferase 19 U/L (5-37); Bilirubin Total 0.6 mg/dL (0.0-1.0); Blood Urea Nitrogen 26 mg/dL (9-16); Calcium 9.2 mg/dL (8.4-10.2); Carbon Dioxide 21 mmol/L (22-29); Chloride 110 mmol/L (96-108); Estimated Glomerular Filt Rate 55; Glucose Random 91 mg/dL (60-115); Potassium 4.4 mmol/L (3.3-5.1); Sodium 142 mmol/L (135-145); Total Protein 6.1 g/dL (6.5-8.0)
[2023-10-10 07:50] LABS: Erythrocyte Sedimentation Rate 12 MM/HR (0-15)
[2023-10-10 07:54] LABS: Thyroid Stimulating Hormone 2.93 uIU/mL (0.32-4.0)
== END 2023-10-10 06:30 | disposition home or self-care (01) ==
LOC: HO.HSH4E 06:29
PROVIDERS: Visit Provider Internal Medicine
DX: I12.9 Hypertensive chronic kidney disease with stage 1 through stage 4 chronic kidney disease, or unspecified chronic kidney disease (principal); N18.9 Chronic kidney disease, unspecified; M54.50 Low back pain, unspecified
CPT/HCPCS: 36415; 80053; 82550; 83735; 84443; 85025; 85652

== ENCOUNTER 2023-10-11 12:45 | Emergency (ER) | payer OTHER, SELFPAY ==
--- NOTE | ~2023-10-11 | XR_ITS ---
EXAMINATION: XR chest 1V XR hip RT w PEL1V CLINICAL INFORMATION: Reason for Exam wheezing b/l Rt hip pain no fall COMPARISON: Chest radiograph 09/05/2022 TECHNIQUE: AP supine view the chest. AP view the pelvis and AP and frog-leg lateral views of the right hip, 4 images. FINDINGS: Chest: The enlarged cardiomediastinal silhouette is unchanged given differences in patient positioning. Central pulmonary vascular congestion and diffuse interstitial prominence. The lungs are hypoexpanded. No pleural effusion or pneumothorax. No acute osseous abnormality. Right shoulder arthrosis with humeral head deformity redemonstrated. Right hip: Moderate right hip arthrosis with joint space narrowing and subchondral sclerosis. The right femoral head remains well seated within the acetabulum. No acute fracture. The pelvic rim is intact. No pubic symphysis diastases. Sacroiliac joint spaces are maintained. Left hip is intact. XR/XR hip RT w PEL1V IMPRESSION: 1. Central pulmonary vascular congestion and diffuse interstitial prominence in setting of cardiomegaly are suggestive of mild interstitial pulmonary edema. 2. No acute fracture or dislocation of the right hip. Moderate right hip arthrosis.
--- NOTE | ~2023-10-11 | CT_ITS ---
EXAMINATION: CT HEAD WITHOUT CONTRAST CLINICAL INFORMATION: Altered mental status confusion COMPARISON: None available. TECHNIQUE: Contiguous axial imaging was performed from the skull base to vertex without intravenous administration of contrast. This CT examination was performed using dose optimization techniques as appropriate, variously including the following: *Automated exposure control *Adjustment of mA and/or kV according to patient size (this includes techniques or standardized protocols for targeted exams where dose is matched to indication/reason for exam; i.e. extremities or head) *Use of iterative reconstruction technique DLP: 1821 mGy-cm FINDINGS: Patient motion artifact slightly limits evaluation. There is no evidence of acute intracranial hemorrhage or territorial infarction. Chronic white matter small vessel ischemic changes. Mild cerebral atrophy with commensurate ventricular changes. No abnormal mass effect or midline shift is seen. Nash to white matter differentiation is well preserved. No extra-axial fluid collections are identified. There is no abnormal attenuation within the brain parenchyma. The osseous structures and soft tissues are normal. The mastoid air cells and visualized portions of the paranasal sinuses are well aerated. CT/CT head/brain wo IV con IMPRESSION: 1. Patient motion artifact slightly limits evaluation. 2. No acute intracranial pathology. 3. Chronic white matter small vessel ischemic changes.
--- NOTE | ~2023-10-11 | XR_ITS ---
EXAMINATION: XR chest 1V XR hip RT w PEL1V CLINICAL INFORMATION: Reason for Exam wheezing b/l Rt hip pain no fall COMPARISON: Chest radiograph 09/05/2022 TECHNIQUE: AP supine view the chest. AP view the pelvis and AP and frog-leg lateral views of the right hip, 4 images. FINDINGS: Chest: The enlarged cardiomediastinal silhouette is unchanged given differences in patient positioning. Central pulmonary vascular congestion and diffuse interstitial prominence. The lungs are hypoexpanded. No pleural effusion or pneumothorax. No acute osseous abnormality. Right shoulder arthrosis with humeral head deformity redemonstrated. Right hip: Moderate right hip arthrosis with joint space narrowing and subchondral sclerosis. The right femoral head remains well seated within the acetabulum. No acute fracture. The pelvic rim is intact. No pubic symphysis diastases. Sacroiliac joint spaces are maintained. Left hip is intact. XR/XR chest 1V IMPRESSION: 1. Central pulmonary vascular congestion and diffuse interstitial prominence in setting of cardiomegaly are suggestive of mild interstitial pulmonary edema. 2. No acute fracture or dislocation of the right hip. Moderate right hip arthrosis.
[2023-10-11 12:54] VITALS: PULSE 85; O2SAT 99
[2023-10-11 12:55] VITALS: BP 198/92; PULSE 69; RESP 14; O2SAT 95; BMI 52.7
[2023-10-11 13:17] VITALS: BP 181/71; PULSE 62; RESP 16; TEMP 36.3
--- OUTSIDE RECORDS SUMMARY | 2023-10-11 13:39 | XMS_ITS | Continuity of Care Document ---
Author Organization [facility] Address [address] [place] [id number]- Care Team Providers Care Consultant Internship Name Role Phone Michael Dela Cruz MD Primary Care Physician Tera mendoza [place] [facility] - 01/22/23 [facility] [address] [place] [address]- Attending Physician: Lalit John DO Admitting Physician: Lalit John DO Referring Physician: Lalit John DO Allergies, Adverse Reactions, Alerts No Known Allergies Medications Coenzyme Q10 By Mouth, Daily, 0 Refills, Maintenance Start Date: 04/25/11 Status: Ordered Fish Oil = 1,000 mg, By Mouth, 0 Refills, Maintenance Start Date: 04/25/11 Status: Ordered Multivitamin By Mouth, Daily, 0 Refills, Maintenance Start Date: 04/25/11 Status: Ordered Vitamin D3 By Mouth, Daily, 0 Refills, Maintenance Start Date: 04/25/11 Status: Ordered Problem List Condition Confirmation Course Effective Dates Status Health St atus Informant Atrial Fibrillation Confirmed 04/25/11 Active Patient Care team information Care Team Personnel Name: Lanie ORELLANA , Michael Valentin Position: [facility] Physician (General Medicine) Member Role: PCP Care Team Related Persons Name: JANEEN HAILE Address: [place] [address] Name: KELSEY HAILE Address: [place] [address]
--- OUTSIDE RECORDS SUMMARY | 2023-10-11 13:39 | XMS_ITS | Continuity of Care Document ---
Author Organization [facility] Address [address] [place] [address]- Care Team Providers Care Pole Inspector Name Role Phone Michael Dela Cruz MD Primary Care Physician Tera mendoza Encounter [facility] Date(s): 12/23/22 - 01/22/23 [facility] [address] [place] [address] Attending Physician: Augustina Gonzales Admitting Physician: AdmtrAugustina Referring Physician: AdmtrAugustina Allergies, Adverse Reactions, Alerts No Known Allergies [...] Name: Lanie ORELLANA , Michael Valentin Position: [facility] Physician (General Medicine) Member Role: PCP Care Team Related Persons Name: JANEEN HAILE Address: [place] [address] Name: KELSEY HAILE Address: [place] [address]
--- NOTE | 2023-10-11 13:56 | ED.AMS ---
HPI - Altered Mental Status General Chief Complaint: Altered Mental Status Stated Complaint: INCR AMS FROM HS PER EMS Time Seen by Provider: 10/11/23 13:25 Source: patient and EMS Mode of arrival: EMS Limitations: other (Poor historian) History of Present Illness ED Provider: Suhail SANDOVAL HPI narrative: 78-year-old male history of anemia, B-cell lymphoma, chronic AFib, COPD, dermatitis, edema, hearing loss, impaired fasting glucose, cognitive impairment, morbid obesity, osteoarthritis, unspecified arthrosclerosis, CKD presenting from [facility], per EMS patient was brought in due to worsening confusion, altered mental status since yesterday and yesterday nursing at the nursing facility noted that patient was having slurred speech which continued into today. Unknown last well time. I am unable to appreciate slurred speech. Patient tells me he feels fine and he has not sure why he is here. He tells me nothing is hurting him and he feels great. He tells me he thinks he is here for ?a full-body exam . At this time patient denies chest pain, shortness of breath, nausea, vomiting, abdominal pain, headache, vision changes, dizziness, weakness fevers, chills. Related Data Home Medications ?Medication ?Instructions ?Recorded ?Confirmed Lactobacillus acidoph-L.bulgaricus 1 tab PO DAILY@59902/11/22 09/05/22 1 million cell tablet (Floranex) acetaminophen 325 mg tablet 650 mg PO BEDTIME 02/11/22 09/05/22 acetaminophen 325 mg tablet 650 mg PO Q6H PRN Pain, Mild (Pain 02/11/22 09/05/22 Scale 1-3)/FEVER aloe vera 5,000 mg capsule 20,000 mg PO DAILY@59902/11/22 09/05/22 ascorbic acid (vitamin C) 250 mg 500 mg PO DAILY@59902/11/22 09/05/22 tablet (Vitamin C) coenzyme Q10 200 mg capsule 200 mg PO DAILY@59902/11/22 09/05/22 dextromethorphan-guaifenesin 10 10 ml PO QID PRN Cough 02/11/22 09/05/22 mg-100 mg/5 mL oral syrup omega 4-fup-pqz-fish oil 1,200 mg 2 cap PO DAILY@0600 02/11/22 09/05/22 (144 mg-216 mg) capsule (Fish Oil) psyllium husk 3.4 gram/5.4 gram 1 tbsp PO DAILY PRN Constipation 02/11/22 09/05/22 oral powder (Metamucil) vitamin E (dl, acetate) 180 mg 180 mg PO DAILY@0600 02/11/22 09/05/22 (400 unit) capsule Nature Fruits Cap 1 cap PO BID 06/03/22 09/05/22 Vital Protein Collagen Peptide 2 ea PO DAILY 06/03/22 09/05/22 docusate sodium 100 mg capsule 100 mg PO DAILY PRN Constipation 06/03/22 09/05/22 (Colace) ipratropium 0.5 mg-albuterol 3 mg 3 ml inhalation Q4H PRN Wheezing 06/03/22 09/05/22 (2.5 mg base)/3 mL nebulization soln prednisone 5 mg tablet 5 mg PO DAILY 09/05/22 09/05/22 Previous Rx's ?Medication ?Instructions ?Recorded bisacodyl 10 mg rectal suppository 10 mg [place] DAILY PRN Constipation 06/05/20 (Gentle Laxative (bisacodyl)) #30 ea magnesium hydroxide 400 mg/5 mL 30 ml PO DAILY PRN Constipation 06/05/20 oral suspension (Milk of Magnesia) #300 mL magnesium oxide 400 mg (241.3 mg 400 mg PO DAILY@0600 #30 tabs 06/05/20 magnesium) tablet metoprolol succinate 100 mg 100 mg PO DAILY@0600 #30 tabs 06/05/20 tablet,extended release 24 hr metoprolol succinate 25 mg 25 mg PO DAILY@0600 #30 tabs 06/05/20 tablet,extended release 24 hr prednisone 10 mg tablet See Taper PO DIRECTED #11 tabs 09/09/22 rivaroxaban 15 mg tablet (Xarelto) 15 mg PO BID 21 days #42 tabs 10/29/22 rivaroxaban 20 mg tablet (Xarelto) 20 mg PO DAILY #30 tabs 10/29/22 Allergies Allergy/AdvReac Type Severity Reaction Status Date / Time cephalexin [From KEFLEX] Allergy Unknown UNKNOWN Verified 10/11/23 12:58 furosemide [From Lasix] Allergy Unknown Rash Verified 10/11/23 12:58 meropenem [MEROPENEM] Allergy Unknown UNKNOWN Verified 10/11/23 12:58 Penicillins [PENICILLINS] Allergy Unknown UNKNOWN Verified 10/11/23 12:58 sulfamethoxazole Allergy Unknown UNKNOWN Verified 10/11/23 12:58 [From BACTRIM] trimethoprim [From BACTRIM] Allergy Unknown UNKNOWN Verified 10/11/23 12:58 [facility] Past Medical History Medical History Anemia, unspecified B-cell lymphoma Cellulitis of leg Chronic a-fib COPD (chronic obstructive pulmonary disease) Dermatitis Edema Hammer toes of both feet Hearing loss Impaired fasting glucose Mild cognitive impairment Morbid obesity Nail dystrophy Osteoarthritis Pain in right shoulder Stage 3 chronic kidney disease 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, bilateral legs Surgical History No pertinent past surgical history Family History Family History Other No family history of coronary artery disease Social History Social History Household Members: Other Housing: Care Home Do you presently have visiting nurse or other home services: No Alcohol intake: never Comment: pt in overflow Patient Tobacco Use Status: Former Tobacco user Tobacco use type: Cigarette Smoked in Last 30 Days: No Second Hand Smoke Exposure: No Use of substances other than those prescribed or required for medical reasons: No Advance Directives: Yes Advance Directives on File: Yes Advance Directives Date on File: 06/04/22 Do you have a plan to hurt others: No Plan service: Yes Current occupational status: retired Physical Exam ED Vital Signs: Vital Signs - 24 hr 10/11/23 12:55 10/11/23 13:17 10/11/23 15:18 Temperature 97.4 F Pulse Rate 69 62 66 Respiratory Rate 14 16 16 Blood Pressure 198/92 H 181/71 H 180/104 H Pulse Oximetry 95 Oxygen Delivery Method Room Air BMI result Body Mass Index 52.7 vss Appearance: Alert.? Oriented to person and palce.? No acute distress.? No slurred speech. Head: Normocephalic, atraumatic, no step-offs or deformities Eyes: Pupils equal, round and reactive to light.? Neck: Normal inspection.? Neck supple.? CVS: Normal heart rate and rhythm.? Pulses normal.? Respiratory: No respiratory distress.? Breath sounds mild wheezing b/l.? Abdomen: Soft and nontender.? Skin: Skin warm and dry.? Normal skin color.? Normal skin turgor.? Extremities: 2+ lower extremity edema equal and b/l.? No calf ttp. Global weakness. 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 NIHSS-0 Course Reevaluation(s) Reevaluation #1: CBC no acute findings requiring intervention. Baseline normocytic anemia noted. Chemistry no acute findings requiring intervention baseline DAREK noted. No other acute findings. UA negative. Negative flu COVID and RSV. Chest x-ray, head CT pending. Troponin and lipase ordered and pending. X-ray of hip ordered as [facility] called and stated that patient had been complaining of right-sided hip pain for the past few days. Upon further evaluation patient reports pain with range of motion of right hip no overlying deformities or skin changes. Palpable pulses to bilateral lower extremities. Plan x-ray of hip. This is atraumatic hip pain according to the [facility] Time: 14:59 Reevaluation #2: Troponin 16.9. Lipase pending. Repeat troponin and BNP pending. EKG with a bifascicular block. Right bundle-branch present. Patient denies chest pain or shortness of breath. Nonischemic EKG. X-ray of right hip and pelvis with central pulmonary vascular congestion and diffuse interstitial prominence in the setting of cardiomegaly concerning for mild interstitial pulmonary edema. No acute fractures or dislocations of the right hip moderate right hip arthrosis. Patient is saturating well on room air. Lower extremity edema is chronic and not worsening according to chart review and patient. No signs of acute respiratory distress. Mild wheezing on exam otherwise unremarkable. Patient not coughing not complaining of shortness of breath. Time: 15:58 Reevaluation #3: Sign out to Avery RIBEIRO Medical Decision Making Medical Decision Making [facility] Narrative: [id number] 78-year-old male presents with increased confusion since yesterday and per EMS retirement reported slurred speech since yesterday however I am unable to appreciate this. Patient offers no complaints. He is alert to person and place not time or situation. Pleasant man. Physical exam global weakness. No focal neuro deficits. Following commands appropriately. Mild expiratory wheezing bilaterally. History and physical exam concerning for UTI. No trauma unlikely traumatic intracranial hemorrhage. Unlikely intracranial hemorrhage, stroke, posterior stroke. I do not suspect encephalitis, meningitis. No signs of encephalopathy. Will rule out metabolic derangements. Patient does not appear to be in acute distress unlikely ACS, PE or dissection. Bilateral lower extremity edema likely secondary to heart failure unlikely arterial or venous occlusion. No signs of acute threat to limb. Plan labs, imaging, urine. Differential Diagnosis Differential Diagnoses: The differential diagnosis associated with the presentation includes History and physical exam concerning for UTI. No trauma unlikely traumatic intracranial hemorrhage. Unlikely intracranial hemorrhage, stroke, posterior stroke. I do not suspect encephalitis, meningitis. No signs of encephalopathy. Will rule out metabolic derangements. Patient does not appear to be in acute distress unlikely ACS, PE or dissection. Bilateral lower extremity edema likely secondary to heart failure unlikely arterial or venous occlusion. No signs of acute threat to limb. Admission/Observation Consideration of admission/observation: Escalation of care including admission/observation considered possible Lab Data 10/11/23 14:01 10/11/23 14:01 Labs: Lab Results 10/11/23 10/11/23 Range/Units 14:01 14:35 WBC 6.3 (4.8-10.8) X10*3/uL RBC 4.50 L (4.60-5.80) X10*6/uL Hgb 13.2 L (14.0-18.0) g/dl Hct 40.5 L (42.0-52.0) % MCV 90.0 (80.0-98.0) fL MCH 29.3 (27.0-33.0) pg MCHC 32.6 (31.0-36.0) g/dl RDW 15.4 (11.0-16.0) % Plt Count 141 L (160-400) X10*3/uL MPV 9.3 L (9.4-12.4) fL Immature Gran % (Auto) 0.2 (0.0-0.4) % Neut % (Auto) 64.6 (45-73) % Lymph % (Auto) 16.4 L (20-40) % Dane % (Auto) 13.1 H (2-11) % Eos % (Auto) 4.9 H (0-4) % Baso % (Auto) 0.8 (0-2) % Lymph # (Auto) 1.0 L (1.2-4.9) X10*3/uL Dane # (Auto) 0.8 (0.1-1.2) X10*3/uL Eos # (Auto) 0.3 (0.0-0.4) X10*3/uL Baso # (Auto) 0.1 (0.0-0.2) X10*3/uL Abs Immat Gran (auto) 0.01 (0.00-0.03) X10*3/uL Absolute Neuts (auto) 4.1 (2.0-8.3) x10*3/uL Absolute Nucleated RBC 0.000 (0.0-0.012) X10*3/uL Nucleated RBC % (auto) 0.0 (0.0-0.2) /100WBC Sodium 142 (135-145) mmol/L Potassium 4.8 (3.3-5.1) mmol/L Chloride 112 H (96-108) mmol/L Carbon Dioxide 19 L (22-29) mmol/L Anion Gap 16 (12-20) BUN 29 H (9-16) mg/dL Creatinine 1.30 (0.5-1.4) mg/dL Estim Creat Clear Calc 74.3 Estimated GFR 54 Random Glucose 102 (60-115) mg/dL Calcium 9.1 (8.4-10.2) mg/dL Magnesium 2.1 (1.6-2.6) mg/dL Total Bilirubin 0.4 (0.0-1.0) mg/dL AST 24 (5-37) U/L ALT 17 (0-40) U/L Alkaline Phosphatase 73 (39-117) U/L Troponin I High Sens 16.9 (<3.5-35.0) ng/L Total Protein 6.3 L (6.5-8.0) g/dL Albumin 3.8 (3.5-5.0) g/dL Lipase 17 (8-78) U/L Urine Color Yellow Urine Appearance Clear Urine pH 6.5 (5.0-9.0) Ur Specific Tobias 1.015 (1.005-1.025) Urine Protein Negative (Neg-Trace) mg/dL Urine Glucose (UA) Negative (Negative) mg/dL Urine Ketones Negative (Negative) mg/dL Urine Blood Negative (Negative) Urine Nitrite Negative (Negative) Ur Leukocyte Esterase Negative (Negative) Influenza Type A (PCR) NEGATIVE (Negative) Influenza Type B (PCR) NEGATIVE (Negative) RSV RNA Qual (PCR) NEGATIVE (Negative) SARS-CoV-2 RNA (RT-PCR) NEGATIVE (Negative) Independent Interpretation I performed an independent interpretation of an: EKG, Plain X-Ray and CT Scan Radiology Impression Discussion of test interpretation with radiology: I have reviewed the radiologist's reading. Independent Historian Clinical information obtained from an independent historian. History obtained from or confirmed by: EMS External Record Review External record reviewed: Inpatient record, Office record, Outpatient record, Prior outpatient labs, Prior outpatient radiology, Primary care record and Outside ED record Chronic Conditions Patient?s care impacted by: Other (Anemia, B-cell lymphoma, chronic AFib, COPD, edema, mild cognitive impairment, obesity, osteoarthritis, stage III CKD, atherosclerosis) Critical Care Time Critical Care Time Critical Care Time: No Discharge Plan Discharge Clinical Impression: Physical deconditioning, Hip pain, Bilateral edema of lower extremity Patient Disposition: Still a Patient Prescriptions: No Action metoprolol succinate 100 mg Tablet Extended Release 24 Hr 100 mg PO DAILY@0600 Qty: 30 0RF Rx Instructions: TDD = 125 MG magnesium oxide 400 mg (241.3 mg magnesium) Tablet 400 mg PO DAILY@0600 Qty: 30 0RF magnesium hydroxide [Milk of Magnesia] 400 mg/5 mL Suspension 30 ml PO DAILY PRN (Reason: Constipation) Qty: 300 0RF bisacodyl [Gentle Laxative (bisacodyl)] 10 mg Suppository 10 mg [place] DAILY PRN (Reason: Constipation) Qty: 30 0RF metoprolol succinate 25 mg Tablet Extended Release 24 Hr 25 mg PO DAILY@0600 Qty: 30 0RF Rx Instructions: TDD = 125 MG acetaminophen 325 mg Tablet 650 mg PO BEDTIME dextromethorphan-guaifenesin 10-100 mg/5 mL Syrup 10 ml PO QID PRN (Reason: Cough) ascorbic acid (vitamin C) [Vitamin C] 250 mg Tablet 500 mg PO DAILY@0600 aloe vera 5,000 mg Capsule 20,000 mg PO DAILY@0600 coenzyme Q10 200 mg Capsule 200 mg PO DAILY@0600 vitamin E (dl, acetate) 180 mg (400 unit) Capsule 180 mg PO DAILY@0600 omega 5-vkv-bdt-fish oil [Fish Oil] 1,200 (144-216) mg Capsule 2 cap PO DAILY@0600 Lactobacillus acidoph-L.bulgar [Floranex] 1 million cell Tablet 1 tab PO DAILY@0600 Metamucil 3.4 gram/5.4 gram Powder 1 tbsp PO DAILY PRN (Reason: Constipation) Rx Instructions: mix into at least 8 oz of water or juice before administering acetaminophen 325 mg tablet 650 mg PO Q6H PRN (Reason: Pain, Mild (Pain Scale 1-3)/FEVER) ipratropium-albuterol 0.5 mg-3 mg(2.5 mg base)/3 mL Solution For Nebulization 3 ml INHALATION Q4H PRN (Reason: Wheezing) docusate sodium [Colace] 100 mg Capsule 100 mg PO DAILY PRN (Reason: Constipation) Nature Fruits Cap 1 cap PO BID Vital Protein Collagen Peptide 2 ea PO DAILY Rx Instructions: mix with hot coffee or tea Xarelto 15 mg tablet 15 mg PO BID 21 Days Qty: 42 0RF Rx Instructions: Please take for 21 days then 20 mg daily Xarelto 20 mg tablet 20 mg PO DAILY Qty: 30 0RF Rx Instructions: must administer with evening meal prednisone 5 mg Tablet 5 mg PO DAILY prednisone 10 mg tablet See Taper PO DIRECTED Qty: 11 0RF Taper: Prednisone 40 mg daily for 1 Day and 0 Hour 30 mg daily for 1 Day and 0 Hour 20 mg daily for 1 Day and 0 Hour 10 mg daily for 2 Days and 0 Hour Rx Instructions: see taper instructions Print Language: Kuwaiti
--- NOTE | 2023-10-11 14:00 | ECG_ITS ---
Test Reason : AMS Blood Pressure : / mmHG Vent. Rate : 067 BPM Atrial Rate : 000 BPM P-R Int : 000 ms QRS Dur : 138 ms QT Int : 456 ms P-R-T Axes : 000 -56 -45 degrees QTc Int : 481 ms Atrial fibrillation Right bundle branch block Left anterior fascicular block Bifascicular block Minimal voltage criteria for LVH, may be normal variant ( R in aVL ) Septal infarct (cited on or before 05-SEP-2022) Abnormal ECG When compared with ECG of 06-SEP-2022 12:32, Right bundle branch block is now Present Questionable change in initial forces of Septal leads Referred By: Amarilys Martinez Electronically Signed By:TIFFANIE PEDROZA MD
[2023-10-11 14:04] LABS: MANUAL DIFF FLAG NO
[2023-10-11 14:09] LABS: Basophils Absolute Auto 0.1 X10*3/uL (0.0-0.2); Basophils Percent Auto 0.8 % (0-2); Eosinophils Absolute Auto 0.3 X10*3/uL (0.0-0.4); Eosinophils Percent Auto 4.9 % (0-4); Hematocrit 40.5 % (42.0-52.0); Hemoglobin 13.2 g/dl (14.0-18.0); Imm Gran Abs Auto 0.01 X10*3/uL (0.00-0.03); Imm Gran Pct Auto 0.2 % (0.0-0.4); Lymphocytes Percent Auto 16.4 % (20-40); Mean Corpuscular HGB Conc 32.6 g/dl (31.0-36.0); Mean Corpuscular Hemoglobin 29.3 pg (27.0-33.0); Mean Platelet Volume 9.3 fL (9.4-12.4); Monocytes Absolute Auto 0.8 X10*3/uL (0.1-1.2); Monocytes Percent Auto 13.1 % (2-11); Neutrophils Absolute Auto 4.1 x10*3/uL (2.0-8.3); Neutrophils Percent Auto 64.6 % (45-73); Platelet Count 141 X10*3/uL (160-400); Red Cell Distribution Width 15.4 % (11.0-16.0); White Blood Count 6.3 X10*3/uL (4.8-10.8)
[2023-10-11 14:40] LABS: Alanine Aminotransferase 17 U/L (0-40); Albumin Level 3.8 g/dL (3.5-5.0); Alkaline Phosphatase 73 U/L (39-117); Anion Gap 16 (12-20); Aspartate Amino Transferase 24 U/L (5-37); Bilirubin Total 0.4 mg/dL (0.0-1.0); Blood Urea Nitrogen 29 mg/dL (9-16); Calcium 9.1 mg/dL (8.4-10.2); Carbon Dioxide 19 mmol/L (22-29); Chloride 112 mmol/L (96-108); Creatinine Clr Calc Pharmacy 74.3; Estimated Glomerular Filt Rate 54; Glucose Random 102 mg/dL (60-115); Magnesium 2.1 mg/dL (1.6-2.6); Potassium 4.8 mmol/L (3.3-5.1); Sodium 142 mmol/L (135-145); Total Protein 6.3 g/dL (6.5-8.0)
[2023-10-11 14:48] LABS: Appearance Urine Clear; Color Urine Yellow; Glucose Urine UA Negative (Negative); Leukocyte Esterase Urine Negative (Negative); Nitrite Urine Negative (Negative); PH 6.5 (5.0-9.0); Specific Gravity - Urine 1.015 (1.005-1.025); Urine Blood Negative (Negative); Urine Ketones Negative (Negative); Urine Protein Negative (Neg-Trace)
[2023-10-11 14:51] LABS: Influenza A PCR NEGATIVE (Negative); Influenza B PCR NEGATIVE (Negative); Resp Syncy Virus RNA Qual PCR NEGATIVE (Negative); SARS COV2 PCR INHOUSE NEGATIVE (Negative)
--- NOTE | 2023-10-11 14:53 | PC.NURSE ---
Spoke to [facility] JEFF Lowery, states patient has been complaining of R hip pain x 2 -3 days, mobile xray unable to xray d/t size, last took his BP meds metoprolol 125 ER @ 0600, patient is normally oriented to person, place c/o increasing confusion since yesterday.
[2023-10-11 15:18] VITALS: BP 180/104; PULSE 66; RESP 16
[2023-10-11 15:32] LABS: Troponin-I High Sensitivity 16.9 ng/L (<3.5-35.0)
[2023-10-11 16:06] LABS: Lipase 17 U/L (8-78)
[2023-10-11 16:12] VITALS: BP 163/97; PULSE 67; RESP 16; TEMP 36.6; O2SAT 96
[2023-10-11] MEDS: Lidocaine 4 % Patch ADH..PATCH 1 PATCH TRANSDERMA (16:18)
[2023-10-11] MEDS: Acetaminophen 325 MG TABLET 975 MG PO (16:18)
[2023-10-11 16:28] LABS: B Type Natriuretic Peptide 106 pg/mL (<100)
[2023-10-11 17:36] LABS: Troponin-I High Sensitivity 20.5 ng/L (<3.5-35.0)
--- NOTE | 2023-10-11 18:38 | PC.NURSE ---
[facility] Love about whether patient can stand/walk. Love informed this RN that patient is in wheelchair most of the time and does not walk more than 2 steps. Patient to be stood up to assess whether patient can bear his own weight.
[2023-10-11 20:05] VITALS: BP 145/94; PULSE 66; RESP 20; TEMP 36.6; O2SAT 100
--- NOTE | 2023-10-11 20:22 | PC.NURSE ---
Called [facility] to inform them of patient's return, left voicemail.
== END 2023-10-11 20:10 | disposition skilled nursing facility (03) ==
PROVIDERS: Physician Assistant; Emergency Provider Emergency Medicine; PCP Internal Medicine
DX: R41.82 Altered mental status, unspecified (principal); R47.81 Slurred speech; M25.552 Pain in left hip; M25.551 Pain in right hip; R60.0 Localized edema; I48.20 Chronic atrial fibrillation, unspecified; N18.30 Chronic kidney disease, stage 3 unspecified; J44.9 Chronic obstructive pulmonary disease, unspecified; Z03.818 Encounter for observation for suspected exposure to other biological agents ruled out
CPT/HCPCS: 0241U; 36415; 70450; 71045; 73502; 80053; 81003; 83690; 83735; 83880; 84484; 85025; 93005; 99284; 99285

== ENCOUNTER → 2023-10-11 14:00 | Outpatient (BNV) | payer MEDICARE, MEDICAID, SELFPAY | PROVIDERS: Emergency Provider Emergency Medicine; PCP Internal Medicine; Visit Provider Internal Medicine Cardiovascular Disease | DX: I48.91 Unspecified atrial fibrillation (principal); I45.2 Bifascicular block | CPT/HCPCS: 93010 ==

== ENCOUNTER 2023-10-17 14:25 | Outpatient (REF) | payer OTHER, SELFPAY ==
[2023-10-17 14:51] LABS: B Type Natriuretic Peptide 272 pg/mL (<100)
== END 2023-10-17 14:26 | disposition home or self-care (01) ==
LOC: HO.HSH4E 14:25
PROVIDERS: Visit Provider Internal Medicine
DX: R06.2 Wheezing (principal)
CPT/HCPCS: 36415; 83880

== ENCOUNTER 2023-10-22 06:57 | Outpatient (REF) | payer MEDICARE, MEDICAID, SELFPAY ==
[2023-10-22 07:02] LABS: MANUAL DIFF FLAG NO
[2023-10-22 07:45] LABS: Basophils Percent Auto 0.2 % (0-2); Eosinophils Absolute Auto 0.1 X10*3/uL (0.0-0.4); Eosinophils Percent Auto 1.3 % (0-4); Hematocrit 40.7 % (42.0-52.0); Hemoglobin 13.3 g/dl (14.0-18.0); Imm Gran Abs Auto 0.02 X10*3/uL (0.00-0.03); Imm Gran Pct Auto 0.3 % (0.0-0.4); Lymphocytes Absolute Auto 2.1 X10*3/uL (1.2-4.9); Lymphocytes Percent Auto 35.6 % (20-40); Mean Corpuscular HGB Conc 32.7 g/dl (31.0-36.0); Mean Corpuscular Hemoglobin 28.9 pg (27.0-33.0); Mean Corpuscular Volume 88.3 fL (80.0-98.0); Monocytes Absolute Auto 0.8 X10*3/uL (0.1-1.2); Monocytes Percent Auto 12.6 % (2-11); Platelet Count 189 X10*3/uL (160-400); Red Blood Count 4.61 X10*6/uL (4.60-5.80); Red Cell Distribution Width 14.9 % (11.0-16.0); White Blood Count 5.9 X10*3/uL (4.8-10.8)
[2023-10-22 08:02] LABS: Alanine Aminotransferase 39 U/L (0-40); Albumin Level 3.7 g/dL (3.5-5.0); Alkaline Phosphatase 62 U/L (39-117); Anion Gap 12 (12-20); Aspartate Amino Transferase 32 U/L (5-37); Bilirubin Total 0.4 mg/dL (0.0-1.0); Blood Urea Nitrogen 41 mg/dL (9-16); Calcium 8.9 mg/dL (8.4-10.2); Carbon Dioxide 24 mmol/L (22-29); Chloride 109 mmol/L (96-108); Estimated Glomerular Filt Rate 54; Glucose Random 90 mg/dL (60-115); Iron 42 mcg/dL (45-160); Percent Iron Saturation 15 % (15-50); Phosphorus 3.7 mg/dL (2.7-4.5); Potassium 4.3 mmol/L (3.3-5.1); Sodium 141 mmol/L (135-145); Total Iron Binding Capacity 281 mcg/dL (228-428); Total Protein 6.1 g/dL (6.5-8.0); Unsaturated Iron Binding 239 ug/dL
[2023-10-22 08:23] LABS: Erythrocyte Sedimentation Rate 7 MM/HR (0-15); Ferritin 179 ng/mL (20-250)
[2023-10-22 08:40] LABS: Lactate Dehydrogenase 278 U/L (118-273)
== END 2023-10-22 06:58 | disposition home or self-care (01) ==
LOC: HO.HSH4E 06:57
PROVIDERS: Visit Provider Internal Medicine
DX: N18.9 Chronic kidney disease, unspecified (principal); D64.9 Anemia, unspecified; C85.90 Non-Hodgkin lymphoma, unspecified, unspecified site
CPT/HCPCS: 36415; 80053; 82728; 83540; 83615; 84100; 85025; 85652

== ENCOUNTER 2023-11-28 08:45 | Outpatient (REF) | payer OTHER, SELFPAY ==
[2023-11-28 08:48] LABS: MANUAL DIFF FLAG NO
[2023-11-28 09:31] LABS: Basophils Percent Auto 0.8 % (0-2); Eosinophils Absolute Auto 0.2 X10*3/uL (0.0-0.4); Eosinophils Percent Auto 4.2 % (0-4); Imm Gran Abs Auto 0.02 X10*3/uL (0.00-0.03); Imm Gran Pct Auto 0.4 % (0.0-0.4); Lymphocytes Absolute Auto 1.3 X10*3/uL (1.2-4.9); Lymphocytes Percent Auto 25.3 % (20-40); Mean Corpuscular HGB Conc 32.4 g/dl (31.0-36.0); Mean Corpuscular Hemoglobin 28.4 pg (27.0-33.0); Mean Corpuscular Volume 87.5 fL (80.0-98.0); Mean Platelet Volume 9.3 fL (9.4-12.4); Monocytes Absolute Auto 0.7 X10*3/uL (0.1-1.2); Monocytes Percent Auto 14.3 % (2-11); Neutrophils Absolute Auto 2.8 x10*3/uL (2.0-8.3); Platelet Count 232 X10*3/uL (160-400); Red Blood Count 4.23 X10*6/uL (4.60-5.80); Red Cell Distribution Width 14.6 % (11.0-16.0); White Blood Count 5.1 X10*3/uL (4.8-10.8)
[2023-11-28 09:47] LABS: B Type Natriuretic Peptide 107 pg/mL (<100)
[2023-11-28 09:51] LABS: Alanine Aminotransferase 23 U/L (0-40); Albumin Level 3.4 g/dL (3.5-5.0); Alkaline Phosphatase 72 U/L (39-117); Anion Gap 14 (12-20); Aspartate Amino Transferase 27 U/L (5-37); Bilirubin Total 0.4 mg/dL (0.0-1.0); Blood Urea Nitrogen 23 mg/dL (9-16); Calcium 9.2 mg/dL (8.4-10.2); Carbon Dioxide 24 mmol/L (22-29); Chloride 108 mmol/L (96-108); Estimated Glomerular Filt Rate 57; Glucose Random 86 mg/dL (60-115); Potassium 4.6 mmol/L (3.3-5.1); Sodium 141 mmol/L (135-145); Total Protein 5.9 g/dL (6.5-8.0)
[2023-11-28 10:01] LABS: Thyroid Stimulating Hormone 2.29 uIU/mL (0.32-4.0)
== END 2023-11-28 08:46 | disposition home or self-care (01) ==
LOC: HO.HSH4E 08:45
PROVIDERS: Visit Provider Internal Medicine
DX: R53.83 Other fatigue (principal); I48.91 Unspecified atrial fibrillation; N18.9 Chronic kidney disease, unspecified
CPT/HCPCS: 36415; 80053; 83880; 84443; 85025

== ENCOUNTER → 2024-01-01 10:35 | Outpatient (REF) | payer MEDICARE, MEDICAID, SELFPAY | LOC: HO.SL 10:35 | PROVIDERS: PCP Internal Medicine; Visit Provider Internal Medicine | DX: G47.33 Obstructive sleep apnea (adult) (pediatric) (principal); R53.82 Chronic fatigue, unspecified | CPT/HCPCS: 95806 ==

== ENCOUNTER → 2024-01-01 19:00 | Outpatient (BNV) | payer MEDICARE, MEDICAID, SELFPAY | PROVIDERS: PCP Internal Medicine; Visit Provider Internal Medicine | DX: G47.33 Obstructive sleep apnea (adult) (pediatric) (principal) | CPT/HCPCS: 95806 ==

== ENCOUNTER 2024-01-06 07:10 | Outpatient (REF) | payer MEDICARE, MEDICAID, SELFPAY ==
[2024-01-06 08:15] LABS: Alanine Aminotransferase 13 U/L (0-40); Albumin Level 3.8 g/dL (3.5-5.0); Alkaline Phosphatase 72 U/L (39-117); Anion Gap 11 (12-20); Aspartate Amino Transferase 20 U/L (5-37); Bilirubin Total 0.5 mg/dL (0.0-1.0); Blood Urea Nitrogen 30 mg/dL (9-16); Calcium 9.4 mg/dL (8.4-10.2); Carbon Dioxide 26 mmol/L (22-29); Chloride 106 mmol/L (96-108); Estimated Glomerular Filt Rate 59; Glucose Random 103 mg/dL (60-115); Iron 43 mcg/dL (45-160); Percent Iron Saturation 15 % (15-50); Potassium 4.3 mmol/L (3.3-5.1); Sodium 139 mmol/L (135-145); Total Iron Binding Capacity 288 mcg/dL (228-428); Total Protein 6.6 g/dL (6.5-8.0); Unsaturated Iron Binding 245 ug/dL
[2024-01-06 08:34] LABS: Ferritin 202 ng/mL (20-250)
== END 2024-01-06 07:11 | disposition home or self-care (01) ==
LOC: HO.HSH4E 07:10
PROVIDERS: Visit Provider Internal Medicine Endocrinology, Diabetes & Metabolism
DX: N28.9 Disorder of kidney and ureter, unspecified (principal)
CPT/HCPCS: 36415; 80053; 82728; 83540

== ENCOUNTER 2024-01-07 10:40 | Outpatient (REF) | payer MEDICARE, MEDICAID, SELFPAY ==
[2024-01-07 10:48] LABS: Appearance Urine Clear; Color Urine Yellow; Glucose Urine UA Negative (Negative); Leukocyte Esterase Urine Negative (Negative); Nitrite Urine Negative (Negative); Specific Gravity - Urine 1.015 (1.005-1.025); Urine Blood Negative (Negative); Urine Ketones Negative (Negative); Urine Protein Negative (Neg-Trace)
== END 2024-01-07 10:41 | disposition home or self-care (01) ==
LOC: HO.HVNA 10:40
PROVIDERS: Visit Provider Internal Medicine Endocrinology, Diabetes & Metabolism
DX: N18.9 Chronic kidney disease, unspecified (principal)
CPT/HCPCS: 81003

== ENCOUNTER 2024-01-27 06:50 | Outpatient (REF) | payer MEDICARE, MEDICAID, SELFPAY ==
[2024-01-27 06:54] LABS: MANUAL DIFF FLAG NO
[2024-01-27 07:33] LABS: Basophils Percent Auto 0.7 % (0-2); Eosinophils Absolute Auto 0.4 X10*3/uL (0.0-0.4); Eosinophils Percent Auto 7.4 % (0-4); Hematocrit 37.7 % (42.0-52.0); Hemoglobin 12.3 g/dl (14.0-18.0); Imm Gran Abs Auto 0.02 X10*3/uL (0.00-0.03); Imm Gran Pct Auto 0.3 % (0.0-0.4); Lymphocytes Absolute Auto 1.4 X10*3/uL (1.2-4.9); Lymphocytes Percent Auto 23.2 % (20-40); Mean Corpuscular HGB Conc 32.6 g/dl (31.0-36.0); Mean Corpuscular Hemoglobin 28.2 pg (27.0-33.0); Mean Corpuscular Volume 86.5 fL (80.0-98.0); Monocytes Absolute Auto 0.6 X10*3/uL (0.1-1.2); Neutrophils Absolute Auto 3.3 x10*3/uL (2.0-8.3); Neutrophils Percent Auto 57.4 % (45-73); Platelet Count 185 X10*3/uL (160-400); Red Blood Count 4.36 X10*6/uL (4.60-5.80); Red Cell Distribution Width 15.1 % (11.0-16.0); White Blood Count 5.8 X10*3/uL (4.8-10.8)
[2024-01-27 07:50] LABS: Alanine Aminotransferase 19 U/L (0-40); Albumin Level 3.3 g/dL (3.5-5.0); Alkaline Phosphatase 66 U/L (39-117); Anion Gap 12 (12-20); Aspartate Amino Transferase 19 U/L (5-37); Bilirubin Total 0.4 mg/dL (0.0-1.0); Blood Urea Nitrogen 31 mg/dL (9-16); Calcium 9.1 mg/dL (8.4-10.2); Carbon Dioxide 25 mmol/L (22-29); Chloride 110 mmol/L (96-108); Estimated Glomerular Filt Rate > 60; Glucose Random 91 mg/dL (60-115); Iron 46 mcg/dL (45-160); Percent Iron Saturation 19 % (15-50); Phosphorus 3.9 mg/dL (2.7-4.5); Potassium 4.5 mmol/L (3.3-5.1); Sodium 142 mmol/L (135-145); Total Iron Binding Capacity 236 mcg/dL (228-428); Total Protein 5.7 g/dL (6.5-8.0); Unsaturated Iron Binding 190 ug/dL
[2024-01-27 08:03] LABS: Ferritin 175 ng/mL (20-250)
[2024-01-27 08:17] LABS: Folate 5.3 ng/mL (> or = 4.0)
[2024-01-27 09:02] LABS: Creatinine Urine 23.75 mg/dL; Microalbumin Urine < 5.0 mg/L
== END 2024-01-27 06:51 | disposition home or self-care (01) ==
LOC: HO.HSH4E 06:50
PROVIDERS: Visit Provider Internal Medicine
DX: N18.9 Chronic kidney disease, unspecified (principal); D64.9 Anemia, unspecified
CPT/HCPCS: 36415; 80053; 82043; 82570; 82728; 82746; 83540; 84100; 85025

== ENCOUNTER 2024-06-04 05:59 | Outpatient (REF) | payer MEDICARE, MEDICAID, SELFPAY ==
[2024-06-04 06:02] LABS: MANUAL DIFF FLAG NO
--- OUTSIDE RECORDS SUMMARY | 2024-06-04 06:03 | XMS_ITS | Continuity of Care Document ---
Author Organization [facility] Address [address] [place] [address] [address] [place] [id number] Phone Care Team Providers Care [place] Support Worker Name Role Phone Gary Tamayo MD, FACS, RVT Unavailable Unavailable Procedures Procedure Date Office/Oupt E&M New Pt 30 Mins Advance Directives Directive Yes / No Effective Date File Name No Information Encounters Encounter Description Practice Location Reason(s) For Visit Diagnoses Date Provider Providers Copied on Encounter [facility], [address] [place] [address] [address]a [place], [id number], [place] tel:[phone] CV - [facility] No Information 3 Hubert Saeed. [address] [address], [place], [address], [place]. tel:[phone] Referring Provider: Lalit John, 3 [facility] [address] [place] [address], [address]. tel:[phone] Office/Oupt E&M New Pt 30 Mins [facility], [address] [place] [address] [address] [place], [id number], [place] tel:[phone] CVR - [facility] Venous insufficiency (chronic) (peripheral)Ly mphedema, not elsewhere classifiedUnsp ecified systolic (congestive) heart failureFlail joint, unspecified joint 3 Hubert Saeed. [address] [address], [place], [address], . tel:[phone] Referring Provider: Gary Gaspar MD FACS RVT [facility], [address] [facility] [address], [place], [address]. tel:[phone] Family History Family Member Type Diagnosis Age At Onset No Information Payers Payer name Insurance type Covered libertarian ID Authoriza tijas(s) Medicare HALLIE RAYMOND [id number] Social History Type Description Quantity Date Captured [...]
[2024-06-04 06:07] LABS: Basophils Absolute Auto 0.1 X10*3/uL (0.0-0.2); Basophils Percent Auto 0.9 % (0-2); Eosinophils Absolute Auto 0.4 X10*3/uL (0.0-0.4); Eosinophils Percent Auto 8.3 % (0-4); Hematocrit 41.3 % (42.0-52.0); Hemoglobin 13.4 g/dl (14.0-18.0); Imm Gran Abs Auto 0.01 X10*3/uL (0.00-0.03); Imm Gran Pct Auto 0.2 % (0.0-0.4); Lymphocytes Absolute Auto 1.6 X10*3/uL (1.2-4.9); Lymphocytes Percent Auto 30.1 % (20-40); Mean Corpuscular HGB Conc 32.4 g/dl (31.0-36.0); Mean Corpuscular Hemoglobin 28.1 pg (27.0-33.0); Mean Corpuscular Volume 86.6 fL (80.0-98.0); Mean Platelet Volume 9.3 fL (9.4-12.4); Monocytes Absolute Auto 0.6 X10*3/uL (0.1-1.2); Monocytes Percent Auto 10.4 % (2-11); Neutrophils Absolute Auto 2.6 x10*3/uL (2.0-8.3); Neutrophils Percent Auto 50.1 % (45-73); Platelet Count 166 X10*3/uL (160-400); Red Blood Count 4.77 X10*6/uL (4.60-5.80); Red Cell Distribution Width 14.7 % (11.0-16.0); White Blood Count 5.3 X10*3/uL (4.8-10.8)
[2024-06-04 06:39] LABS: Alanine Aminotransferase 24 U/L (0-40); Albumin Level 3.6 g/dL (3.5-5.0); Alkaline Phosphatase 62 U/L (39-117); Anion Gap 13 (12-20); Aspartate Amino Transferase 24 U/L (5-37); Bilirubin Total 0.4 mg/dL (0.0-1.0); Blood Urea Nitrogen 39 mg/dL (9-16); Calcium 8.8 mg/dL (8.4-10.2); Carbon Dioxide 22 mmol/L (22-29); Chloride 113 mmol/L (96-108); Estimated Glomerular Filt Rate 44; Glucose Fasting 95 mg/dL (60-99); Iron 76 mcg/dL (45-160); Percent Iron Saturation 28 % (15-50); Potassium 4.7 mmol/L (3.3-5.1); Sodium 143 mmol/L (135-145); Total Iron Binding Capacity 275 mcg/dL (228-428); Unsaturated Iron Binding 199 ug/dL
[2024-06-04 06:54] LABS: Ferritin 125 ng/mL (20-250); Thyroid Stimulating Hormone 3.06 uIU/mL (0.32-4.0)
[2024-06-04 07:05] LABS: Folate 7.6 ng/mL (> or = 4.0); Vitamin B12 328 pg/mL (200-900)
[2024-06-04 07:18] LABS: Estimated Average Glucose 111 mg/dL; Hemoglobin A1C 126.9828 umol/L; Hemoglobin A1c % 5.5 % (<6.0); Total Hemoglobin (HGBA1C) 3504.0887 umol/L
== END 2024-06-04 06:00 | disposition home or self-care (01) ==
LOC: HO.HSH4E 05:59
PROVIDERS: Visit Provider Internal Medicine
DX: D64.9 Anemia, unspecified (principal); Z18.9 Retained foreign body fragments, unspecified material; R73.9 Hyperglycemia, unspecified
CPT/HCPCS: 36415; 80053; 82607; 82728; 82746; 83036; 83540; 83735; 84443; 85025

== ENCOUNTER 2024-07-13 05:50 | Outpatient (REF) | payer MEDICARE, MEDICAID, SELFPAY ==
[2024-07-13 05:52] LABS: MANUAL DIFF FLAG NO
--- OUTSIDE RECORDS SUMMARY | 2024-07-13 05:53 | XMS_ITS | Encounter Summary ---
Author Organization [employer] Address [address] [place] [address] [place] [address] Care Team Providers Care Auxiliary Power Equipment Operator Name Role Phone Unavailable Primary Care Provider Unavailabl e Encounter Details Date Type Department Care Team (Late st Contact Info) Description 05/09/2023 Abstract [facility] [address] [place] [address] Johnathan Amaya, DMD [address] [place] [address] Social History Tobacco Use Types Packs/Day Years Used Date Smoking Tobacco: Unknown Sex and Gender Information Value Date Recorded Sex Assigned at Male 03/25/2022 10:24 AM EDT Legal Sex Male 10:24 AM EDT Gender Identity Male 03/25/2022 10:24 AM EDT Sexual Orientation Straight 03/25/2022 10 :24 AM EDT documented as of this encounter Plan of Treatment Upcoming Encounters Date Type Department Care Team (Late st Contact Info) Description 07/28/2024 8:00 AM EST Office Visit [facility] [address] [place] [address] Johnathan Amaya, DMD [address] [place] [address] documented as of this encounter Visit Diagnoses Not on filedocumented in this encounter
--- OUTSIDE RECORDS SUMMARY | 2024-07-13 05:53 | XMS_ITS | Encounter Summary ---
Author Organization [employer] Address [address] [place] [address] Care Team Providers Care Mold Maker Apprentice Name Role Phone Unavailable Primary Care Provider Unavailabl e Encounter Details Date Type Department Care Team (Latest Contact Info) Description 01/23/2022 Abstract [facility], Provider, DDS Social History Tobacco Use Types Packs/Day Years Used Date Smoking Tobacco: Never Assessed Sex and Gender Information Value Date Recorded Sex Assigned at Male 03/25/2022 10:24 AM EDT Legal Sex Male 10:24 AM EDT Gender Identity Male 03/25/2022 10:24 AM EDT Sexual Orientation Straight 03/25/2022 10 :24 AM EDT documented as of this encounter Plan of Treatment Upcoming Encounters Date Type Department Care Team (Late st Contact Info) Description 07/28/2024 8:00 AM EST Office Visit [facility] [address] [place] [address] Johnathan Amaya, MICKIE [address] [place] [address] documented as of this encounter Visit Diagnoses Not on filedocumented in this encounter
--- OUTSIDE RECORDS SUMMARY | 2024-07-13 05:53 | XMS_ITS | Encounter Summary ---
Author Organization [employer] Address [address] [place] [address] [place] [address] Care Team Providers Care Lead Systems Architect Name Role Phone Unavailable Primary Care Provider Unavailabl e Encounter Details Date Type Department Care Team (Late st Contact Info) Description 05/05/2023 Abstract [facility] [address] [place] [address] Johnathan Amaya, DMD [address] [place] [address] Social History Tobacco Use Types Packs/Day Years [...] Description 07/28/2024 8:00 AM EST Office Visit [facility] [address] [place] [address] Johnathan Amaya, DMD [address] [place] [address] documented as of this encounter Visit Diagnoses Not on filedocumented in this encounter
--- OUTSIDE RECORDS SUMMARY | 2024-07-13 05:53 | XMS_ITS | Encounter Summary ---
Author Organization [employer] Address [address] [place] [address] [place] [address] Care Team Providers Care Motor And Controls Tester Name Role Phone Unavailable Primary Care Provider Unavailabl e Encounter Details Date Type Department Care Team (Latest Contact Info) Description 06/09/2018 Abstract [facility] Dental, Provider, DDS Social History Tobacco [...] Description 07/28/2024 8:00 AM EST Office Visit [facility] [address] [place] [address] Johnathan Amaya, DMD [address] [place] [address] documented as of this encounter Visit Diagnoses Not on filedocumented in this encounter
--- OUTSIDE RECORDS SUMMARY | 2024-07-13 05:54 | XMS_ITS | Data Portability ---
Author Organization [facility], , [facility] Address [address] [place] [address] Assessment No assessment recorded. Plan of Treatment Reminders Order Date Submit Date Provider Last Modified By Organization Details Last Modified Time Details Appointments None record ed. Lab None record ed. Referral None record ed. Procedures None record ed. Surgeries None record ed. Imaging None record ed. Medication Orders None record ed. Patient TargetsNo targets recorded. Patient InstructionsNo instructions recorded. Reason for Referral None Reported. Problems Name Problem SNOMED Code Status Onset Date Resolution Date Notes Provider Name and Address Organization Details Recorded Time Chronic renal impairment Active 2001 Not Available [facility] 3 03:02:13 Injury of shoulder region 900502055 Active 2003 Not Available [facility] 3 03:02:13 Contusion 291995675 Completed 200304/14/2013 Not Available [facility] 3 02:02:46 Presbyopia 12043681 Active 2002 Not Available [facility] 3 03:02:13 Mitral valve disorder 55724454 Active 2001 Not Available [facility] 3 03:02:13 Transient cerebral ischemia 954046964 Active 2001 Not Available [facility] 3 03:02:13 Cellulitis and abscess of hand excluding digits Completed 200404/14/2013 Not Available [facility] 3 02:03:53 Traumatic injury 197020374 Completed 200304/14/2013 Not Available [facility] 3 02:03:19 Palpitatio ns 00655057 Active 2001 Not Available [facility] 3 03:02:13 Osteoarthr itis of knee 423220495 Active 2000 Not Available [facility] 3 03:02:13 Benign essential hypertensi on 4677027 Active 2000 Not Available [facility] 3 03:02:13 Osteoarthr itis 433211051 Active 2000 Not Available [facility] 3 03:02:13 Localized, primary osteoarthr itis 415556694 Active 2000 Not Available [facility] 3 03:02:13 Atopic dermatitis 71861030 Active 2003 Not Available [facility] 3 03:02:13 Cellulitis and abscess of foot excluding toe Completed 200304/14/2013 Not Available [facility] 3 02:03:53 Verruca vulgaris 07419436 Completed 200204/14/2013 Not Available [facility] 3 02:02:12 Knee pain Completed 200004/14/2013 Not Available [facility] 3 02:00:38 Tenosynovi tis of foot 732758009 Completed 200004/14/2013 Not Available [facility] 3 02:03:34 Anemia 279687501 Active 2003 Not Available [facility] 3 03:02:13 Elevated blood-pres sure reading without diagnosis of hypertensi on 144593307 Active 2001 Not Available [facility] 3 03:02:13 Morbid obesity 985454455 Active 2000 Not Available [facility] 3 03:02:13 Hyperlipid emia 65374046 Active 2001 Not Available [facility] 3 03:02:13 Degenerati ve joint disease involving multiple joints 727606291 Active 2000 Not Available [facility] 3 03:02:13 Allergy Active 2007 Not Available [facility] 3 03:02:13 Otogenic otalgia 26758002 Completed 200204/14/2013 Not Available [facility] 3 02:03:18 Contact dermatitis 56039548 Completed 200204/14/2013 Not Available [facility] 3 02:02:37 Hematochez ia 630270702 Completed 200004/14/2013 Not Available [facility] 3 02:03:47 Shoulder pain 59417993 Completed 200304/14/2013 Not Available [facility] 3 02:00:59 Myopia 95121526 Active 2002 Not Available [facility] 3 03:02:13 Hip pain 54270983 Completed 200704/14/2013 Not Available [facility] 3 02:01:31 Ulcer of calf Active 2004 Not Available [facility] 3 03:02:13 Disorder of hair AND/OR hair follicle Active 2006 Not Available [facility] 3 03:02:13 Obesity 042526659 Active 2000 Not Available [facility] 3 03:02:13 Breathing painful 39584252 Completed 200104/14/2013 Not Available [facility] 3 02:02:56 Gastrointe stinal hemorrhage 25598800 Active 2000 Not Available [facility] 3 03:02:13 Abdominal pain 76781204 Completed 200704/14/2013 Not Available [facility] 3 02:01:19 Common cold 67154144 Completed 200204/14/2013 Not Available [facility] 3 02:00:23 Edema of extremity 856596788 Completed 200304/14/2013 Not Available [facility] 3 02:02:54 On examinatio n - a rash Completed 200604/14/2013 Not Available [facility] 3 02:00:45 Degenerati on of interverte bral disc 21938442 Active 2006 Not Available [facility] 3 03:02:13 Low back pain 547730167 Active 2002 Not Available [facility] 3 03:02:13 Disorder of lower limb 296803593 Completed 200104/14/2013 Not Available [facility] 3 02:03:21 Streptococ misael sore throat 56055684 Completed 200404/14/2013 Not Available [facility] 3 02:02:01 Diverticul osis of colon without diverticul itis 899251061 Active 2006 Not Available [facility] 3 03:02:13 Pain in limb 00939286 Completed 200704/14/2013 Not Available [facility] 3 02:00:52 Viral upper respirator y tract infection 993095086 Completed 200504/14/2013 Not Available [facility] 3 02:03:11 Problem Notes None recorded. Procedures Surgical History Date Name Laterality Status Provider Name and Address Organization Details Recorded Time 06/23/2006 completed Not Available [facility] 04/11/2011 06:05:52 Imaging Results None recorded. Procedure Notes None recorded. Medical Equipment None Reported. Vitals None Recorded Social History None recorded. Functional Status None recorded. Mental Status None recorded. Family History Nothing Reported. Medical History No medical history recorded. Immunizations Vaccine Type Date Status Note Provider Nam e and Address Organization Details Recorded Time influenza, unspecified formulation 1 completed Not Available [facility] 04/10/2011 05:20:34 influenza, unspecified formulation 1 completed Not Available [facility] 04/10/2011 05:20:34 influenza, unspecified formulation 2 completed Not Available [facility] 04/10/2011 05:20:34 influenza, unspecified formulation 3 completed Not Available [facility] 04/10/2011 05:21:07 influenza, unspecified formulation 4 completed Not Available [facility] 04/10/2011 05:23:04 influenza, unspecified formulation 5 completed Not Available [facility] 04/10/2011 05:21:29 influenza, unspecified formulation 5 completed Not Available [facility] 04/10/2011 05:21:29 influenza, unspecified formulation 0 completed Not Available [facility] 04/10/2011 05:20:34 Past Encounters Encounter ID Performer Location Encounter Start Date Encounter Closed Date Diagnosis/Indication Diagnosis SNOMED-CT Code Diagnosis ICD10 Code Diagnosis Note [id number] [facility], OFFICE [address] [place] [address] 05/05/2000 11:00:00 06/15/2008 02:02:29 [id number] [facility], OFFICE [address] [place] [address] 07/24/2000 13:30:00 06/15/2008 02:02:29 [id number] [facility] , [facility] [address] [place] [address] 07/24/2000 14:00:00 06/15/2008 02:02:29 [id number] [facility], OFFICE [address] [place] [address] 10/16/2000 09:00:00 06/15/2008 02:02:29 [id number] [facility], OFFICE [address] [place] [address] 1 11/05/2000 14:15:00 06/15/2008 02:02:29 [id number] [facility], OFFICE [address] [place] [address] 1 01/09/2001 14:30:00 06/15/2008 02:02:29 [id number] [facility], OFFICE [address] [place] [address] 1 03/24/2001 15:15:00 06/15/2008 02:02:29 [id number] [facility], OFFICE [address] [place] [address] 1 03/25/2001 14:15:00 06/15/2008 02:02:29 [id number] ASP, [facility] [address] [place] [address] 1 03/26/2001 09:30:00 06/15/2008 02:02:29 [id number] [facility], OFFICE [address] [place] [address] 1 05/01/2001 11:50:00 06/15/2008 02:02:29 [id number] [facility], OFFICE [address] [place] [address] 1 07/09/2001 13:00:00 06/15/2008 02:02:29 [id number] [facility], OFFICE [address] [place] [address] 1 09/25/2001 15:30:00 06/15/2008 02:02:29 [id number] [facility], OFFICE [address] [place] [address] 10/29/2001 12:59:48 06/15/2008 02:02:29 [id number] LAB - [facility] [address] [place] [address] 1 10/29/2001 00:00:00 06/15/2008 02:02:29 [id number] LAB - [facility] [address] [place] [address] 1 07/09/2001 00:00:00 06/15/2008 02:02:29 [id number] [facility], OFFICE [address] [place] [id number] 01/07/2002 09:33:10 06/15/2008 02:02:29 [id number] [facility], OFFICE [address] [place] [address] 1 02/19/2002 10:18:48 06/15/2008 02:02:29 [id number] [facility] - [facility] [address] [place] [address] 1 02/19/2002 00:00:00 06/15/2008 02:02:29 [id number] [facility] - [facility] [address] [place] [address] 1 02/19/2002 10:54:38 06/15/2008 02:02:29 [id number] [facility], OFFICE [address] [place] [address] 1 03/01/2002 14:33:13 06/15/2008 02:02:29 [id number] [facility], OFFICE [address] [place] [address] 03/15/2002 10:02:53 06/15/2008 02:02:29 [id number] [facility] OFFICE [address] [place] [address] 07/14/2002 09:36:05 06/15/2008 02:02:29 [id number] FP [facility], OFFICE [address] [place] [id number] 08/02/2002 10:59:45 06/15/2008 02:02:29 [id number] FP [facility], OFFICE [address] [place] [address] 1 08/13/2002 08:59:20 06/15/2008 02:02:29 [id number] [facility], OFFICE [address] [place] [address] 1 11/03/2002 10:49:47 06/15/2008 02:02:29 [id number] [facility], OFFICE [address] [place] [address] 1 02/09/2003 14:13:36 02/10/2003 15:33:50 [id number] Eye Care, [address] [place] [address] 02/16/2003 10:22:15 02/16/2003 13:25:06 [id number] Optical, [facility] [address] [place] [address] 1 02/24/2003 11:40:38 02/24/2003 17:18:16 [id number] [facility], OFFICE [address] [place] [address] 1 03/02/2003 15:30:32 03/02/2003 15:30:42 [id number] [facility], OFFICE [address] [place] [address] 1 04/27/2003 10:01:29 04/28/2003 09:24:45 [id number] Optical, [address] [place] [address] 1 05/18/2003 13:20:44 05/18/2003 14:23:13 [id number] [facility], OFFICE [address] [place] [address] 1 06/01/2003 12:19:42 06/02/2003 09:23:38 [id number] Radiology , [address] [place] [address] 1 06/01/2003 12:54:12 06/01/2003 16:58:23 [id number] LAB - [address] [place] [address] 06/15/2003 07:39:36 06/15/2003 13:11:20 [id number] [facility], OFFICE [address] [place] [address] 07/20/2003 15:56:24 07/21/2003 09:10:21 [id number] Physical Therapy, [address] [place] [address] 1 07/26/2003 10:30:21 07/26/2003 11:53:08 [id number] Physical Therapy, [facility] [address] [place] [address] 08/10/2003 11:45:54 08/10/2003 11:59:12 [id number] Physical Therapy, [facility] [address] [place] [address] 1 09/01/2003 12:30:39 09/01/2003 12:32:22 [id number] Physical Therapy, [facility] [address] [place] [address] 1 09/29/2003 12:30:14 09/29/2003 13:09:59 [id number] [facility], OFFICE [address] [place] [address] 10/06/2003 11:31:04 10/06/2003 17:37:44 [id number] [facility], OFFICE [address] [place] [place] [id number] 1 10/12/2003 13:51:24 10/13/2003 08:41:50 [id number] [facility], OFFICE [address] [place] [address] 10/19/2003 15:48:51 10/19/2003 17:59:31 [id number] [facility], OFFICE [address] [place] [place] [id number] 1 10/26/2003 14:01:09 10/26/2003 15:36:52 [id number] [facility], OFFICE [address] [place] [address] 11/02/2003 15:34:49 11/03/2003 08:44:48 [id number] Radiology , [facility] [address] [place] [address] 1 01/26/2004 13:14:51 01/26/2004 14:06:17 [id number] [facility], OFFICE [address] [place] [place] [address] 01/26/2004 12:10:05 01/27/2004 08:52:41 [id number] [facility], OFFICE [address] [place] [address] [address] [place] [place] [address] 02/06/2004 10:06:40 02/09/2004 09:16:30 [id number] [facility], OFFICE [address] [place] [id number] 1 03/08/2004 13:02:27 03/09/2004 09:19:22 [id number] [facility], OFFICE [address] [place] [address] 1 04/05/2004 13:00:55 04/05/2004 13:35:52 [id number] [facility], OFFICE [address] [place] [address] 1 09/24/2004 15:12:02 09/25/2004 08:58:21 [id number] [facility], OFFICE [address] [place] [address] 1 11/29/2004 14:23:50 11/30/2004 09:16:50 [id number] [facility], OFFICE [address] [place] [address] 1 04/17/2005 14:47:45 04/19/2005 08:48:03 [id number] [facility], OFFICE [address] [place] [address] [place] [address] 1 05/03/2005 15:33:33 05/03/2005 16:41:03 [id number] [facility], OFFICE [address] [place] [address] [place] [address] 1 05/29/2005 14:00:14 05/29/2005 15:54:58 [id number] [facility], OFFICE [address] [place] [address] [place] [address] 1 07/12/2005 10:02:55 07/15/2005 08:50:37 [id number] [facility], [place] [address] 1 03/10/2006 09:52:43 03/10/2006 13:48:55 [id number] [facility] [address] [place] [address] 03/13/2006 08:01:37 03/13/2006 08:01:40 [id number] [facility], OFFICE [address] [place] [address] 1 06/03/2006 10:53:19 06/04/2006 08:43:42 [id number] [facility] [address] [place] [address] 1 06/23/2006 09:59:43 06/24/2006 07:25:07 [id number] [facility], [place] [address] 07/10/2006 11:08:54 07/11/2006 13:07:58 [id number] [facility], OFFICE [address] [place] [address] [place] [address] 1 04/22/2007 13:35:50 06/15/2008 02:02:29 [id number] , [facility], OFFICE [address] [place] [id number] 06/01/2007 10:24:52 06/15/2008 02:02:29 [id number] Radiology , [facility] [place] [address] 1 06/02/2007 13:27:20 06/02/2007 15:07:24 [id number] [facility], OFFICE [address] [place] [id number] 07/31/2007 11:13:28 06/15/2008 02:02:29 [id number] Radiology , [facility] [place] [address] 07/31/2007 12:25:17 07/31/2007 13:33:29 [id number] [facility], OFFICE [address] [place] [id number] 09/04/2007 11:17:06 06/15/2008 02:02:29 [id number] [facility], OFFICE [address] [place] [id number] 1 12/24/2007 13:37:46 06/15/2008 02:02:29 [id number] [facility], OFFICE [address] [place] [address] 1 03/03/2008 09:12:21 06/15/2008 02:02:29 [id number] Physical Therapy, [facility] [place] [address] 1 03/07/2008 11:05:44 03/07/2008 11:09:35 [id number] Physical Therapy, [facility] [place] [address] 1 03/17/2008 08:30:09 03/17/2008 08:30:14 [id number] Physical Therapy, [facility] [place] [address] 1 03/24/2008 08:32:44 03/24/2008 08:33:23 [id number] Physical Therapy, [facility] [place] [address] 1 04/07/2008 08:31:51 04/07/2008 08:32:13 [id number] Physical Therapy, [facility] [place] [address] 1 04/28/2008 08:04:11 04/28/2008 08:06:02 Health Concerns Section Related Observation LastModified by Organization Detai ls LastModified Time None Recorded Concern Status LastModified by Organization Details LastModified Time None Recorded Advance Directives Directive None Recorded Payers Encounter Date Sequence Insurance Name Policy Number Policy [employer] Covered Member ID [employer] Member ID Guarantor Name 03/07/2008 1 [facility] PL[facility] (O) Miguel Ángel Bates Jr. [id number] Miguel Ángel Bates Jr. 03/17/2008 1 [facility] PLAN (O) Miguel Ángel Bates Jr. [id number] Miguel Ángel Bates Jr. 03/24/[address] [facility] (O) Miguel Ángel Bates Jr. [id number] Miguel Ángel Bates Jr. 04/07/[address] [facility] (O) Miguel Ángel Bates Jr. [id number] Miguel Ángel Bates Jr. 04/28/[address] [facility] ([facility] Miguel Ángel Bates Jr. [id number] Miguel Ángel Bates Jr.
--- OUTSIDE RECORDS SUMMARY | 2024-07-13 05:54 | XMS_ITS | Clinical Summary ---
Author Organization [employer] Address [address] [facility] [address] [place] [address] Care Team Providers Care Photographic Platemaker Name Role Phone Unavailable Primary Care Provider Unavailabl e Allergies Active Allergy Reactions Criticality Noted Date Comments Baclofen 11/05/2023 Cephalexin 06/05/2018 Furosemide 11/05/2023 Meropenem 06/05/2018 Penicillin G 02/24/2015 Sulfa Antibiotics 05/07/2023 Medications acetaminophen (Tylenol 8 Hour) 650 MG ER tablet Take 2 tablets by mouth every 8 (eight) hours. Active Aloe Vera Juice liquid Take 120 mL by mouth if needed in the morning and at bedtime. Active bisacodyl (Laxative) 10 MG suppository Insert 1 suppository into the rectum at bed time. Active Lotion Base (VersaPro) lotion Active omega-3 (Fish Oil) 1000 MG capsule Active metoprolol succinate XL (Toprol-XL) 100 MG 24 hr tablet Take 1 tablet by mouth at bed time. Active magnesium hydroxide (Milk of Magnesia) 400 MG/5ML suspension Take 30 mL by mouth at bed time. Active ascorbic acid (Vitamin C) 500 MG ER capsule Active B Vdhkfas-Z-Txosb Acid (Dane Caps) 1 MG capsule Take 1 capsule by mouth at bed time. Active sodium phosphate (Fleets) 7-19 GM/118ML enema enema Active docusate sodium (Colace) 100 MG capsule Take 100 mg by mouth in the morning. Active guaiFENesin-code ine (Robitussin-AC) 100-10 MG/5ML syrup Take 5 mL by mouth every 6 (six) hours if needed for cough. Active methyl salicylate-menth ol ointment (Icy Hot) 7.6-29 % ointment ointment Apply 1 application topically if needed. Active cholecalciferol (Vitamin D-3) 25 MCG (1000 UT) tablet Take 1,000 Units by mouth in the morning. Active vitamin E 180 MG (400 UNIT) capsule Take 180 mg by mouth in the morning. Active prednisoLONE Sodium Phosphate 20 MG/5ML solution Take 20 mg by mouth Once per day. Active psyllium (Metamucil) 58.6 % powder Take 5.8 g of fiber by mouth 2 times daily. Active Hypochlorous Acid 0.012 % solution Apply topically. Active co-enzyme Q-10 30 MG capsule Take 200 mg by mouth Once per day. Active ipratropium-albu terol (Combivent Respimat) 20-100 MCG/ACT inhaler Inhale 1 puff in the morning, at noon, in the evening, and at bedtime. Active baclofen (Lioresal) 10 MG tablet Take 10 mg by mouth if needed in the morning, at noon, and at bedtime for muscle spasms. Active mirtazapine (Remeron) 15 MG tablet Take 15 mg by mouth at bedtime. Active simvastatin (Zocor) 20 MG tablet Take 20 mg by mouth at bedtime. Active polycarbophil (Fibercon) 625 MG tablet Take by mouth Once per day. Active gemfibrozil (Lopid) 600 MG tablet Take 600 mg by mouth before breakfast and before evening meal. Active Active Problems No known active problems Encounters Date Type Department Care Team Description 06/01/2024 8:00 AM EST Office Visit [facility] [address] [place] [phone] Isabell Alvarado from Last 3 Months Social History Tobacco Use Types Packs/Day Years Used Date Smoking Tobacco: Unknown Tobacco Cessation:Counseling Given: Not Answered Sex and Gender Information Value Date Recorded Sex Assigned at Male 03/25/2022 10:24 AM EDT Legal Sex Male 10:24 AM EDT Gender Identity Male 03/25/2022 10:24 AM EDT Sexual Orientation Straight 03/25/2022 10 :24 AM EDT Last Filed Vital Signs Vital Sign Reading Time Taken Comments Blood Pressure 130/82 05/07/2023 8:06 AM EST Pulse - - Temperature - - Respiratory Rate - - Oxygen Saturation - - Inhaled Oxygen Concentration - - Weight - - Height - - Body Mass Index - - Plan of Treatment Upcoming Encounters Date Type Department Care Team (Late st Contact Info) Description 07/28/2024 8:00 AM EST Office Visit [facility] [address] [place] [address] Johnathan Amaya, DMD [address] [place] [address] Health Maintenance Due Date Last Done Comments Depression Screening 1946 Lipid Panel 1946 SDOH Screening 1946 Alcohol/Substance Use Screening 1958 Hepatitis C Screening 1964 DTaP/Tdap/Td Vaccines (1 - Tdap) 1965 Pneumococcal Vaccine: 50+ Years (1 of 1 - PCV) 1996 Zoster Vaccines (1 of 2) 1996 RSV Patients and Patients Aged 60 years or older (1 - 1-dose 75+ series) 2021 COVID-19 Vaccine (1 - season) 2024 Influenza Vaccine (#1) 2024 Dental Oral Exam 06/12/2024 12/10/2023, 10/2022, 12/05/2021, Additional history exists Dental Prophylaxis 11/30/2024 06/01/2024, 1 , 11/05/2023, Additional history exists Dental X-Ray: Full Mouth 12/06/2024 022, 06/05/2018, 06/27/2017 Dental X-Ray: Bitewings 12/10/2024 12/10/19 24, 02/19/2023, 12/05/2021, Additional history exists Tobacco Screening 06/01/2025 06/01/2024 HIB Vaccines Aged Out No longer eligi ble based on patient's age to complete this topic HPV Vaccines Aged Out No longer eligi ble based on patient's age to complete this topic Hepatitis A Vaccines Aged Out No long er eligible based on patient's age to complete this topic Hepatitis B Vaccines Aged Out No long er eligible based on patient's age to complete this topic IPV Vaccines Aged Out No longer eligi ble based on patient's age to complete this topic Meningococcal Vaccine Aged Out No anthony sonal eligible based on patient's age to complete this topic RSV under 20 months Aged Out No longe r eligible based on patient's age to complete this topic Rotavirus Vaccines Aged Out No longer eligible based on patient's age to complete this topic Procedures Procedure Name Priority Date/Time Associated Diagnosis Comments ORAL HYGIENE INSTRUCTIONS Routine 2024 8:00 AM EST TOPICAL APPLICATION OF FLUORIDE VARNISH Routine 06/01/2024 8:00 AM EST PROPHYLAXIS - ADULT Routine 06/01/2024 8 :00 AM EST BITEWINGS - 4 RADIOGRAPHIC IMAGES Routine 12/10/2023 8:00 AM EDT PERIODIC ORAL EVALUATION - ESTABLISHED PATIENT Routine 12/10/2023 8:00 AM EDT INTRAORAL - COMPLETE SERIES OF RADIOGRAPHIC IMAGES Routine 12/05/2021 12:00 AM EDT from Last 3 Months or Most Recently Relevant to Health Maintenance Insurance [facility] MEDICAID STAND ADULT Advance Directives Documents on File Type Date Recorded Patient Teletype Technician Expl anation HealthCare Proxy 11/06/2023 11:01 AM Vandana fiction on Invoke status per [facility] Advance Directives and Living Will 04/11/2023 Life Sustaining Treatment Power of Under Presser 04/11/2023 POA HealthCare Proxy 04/11/2023 Health Care Proxy Power of Under Presser 09/11/2022 5:40 PM Power of Under Presser 09/11/2022
--- OUTSIDE RECORDS SUMMARY | 2024-07-13 05:54 | XMS_ITS | Continuity of Care Document ---
Author Organization [facility] Address [address] [place] [address] [address] [place] [address] Phone Care Team Providers Care Systems Technician Name Role Phone Gary Tamayo MD, FACS, RVT Unavailable Unavailable Procedures Procedure Date Office/Oupt E&M New Pt 30 Mins Advance Directives Directive Yes / No Effective Date File Name No Information Encounters Encounter Description Practice Location Reason(s) For Visit Diagnoses Date Provider Providers Copied on Encounter [facility], [address] [place] [address] Dr Kellogg [address] Frieda Cheatham [place], [id number], [place] tel:[phone] CV - [facility] No Information 3 Hubert Saeed. [address] [address], [place], [address], [place]. tel:[phone] Referring Provider: Lalit John, 3 [facility] [address] [place] [address], [address]. tel:[phone] Office/Oupt E&M New Pt 30 Mins [facility], [address] [place] [address] Dr Kellogg [address]Frieda [place], [id number], [place] tel:[phone] CVR - [facility] Venous insufficiency (chronic) (peripheral)Ly mphedema, not elsewhere classifiedUnsp ecified systolic (congestive) heart failureFlail joint, unspecified joint 3 Hubert Saeed. [address] [address], [place], [address], . tel:[phone] Referring Provider: Gary Gaspar MD FACS RVT [facility], [address] [facility] [address], [place], [address]. tel:[phone] Family History Family Member Type Diagnosis Age At Onset No Information Payers Payer name Insurance type Covered green party ID Authoriza tijas(s) Medicare HALLIE SEGUNDO [id number] Social History Type Description Quantity Date Captured Comments Sex Male Smoking Status No Information Chief Complaint And Reason For Visit No Information Reason For Referral Reason For Referral No Information Plan Of Treatment Date Type Action Status Goal Tobacco cessation counseling completed Goal Diet education completed Referral Ordered: Weight management: Referral to physician timeframe: 3 Months (related to Body mass index (BMI) 50-59.9 , adult) ordered History Of Present Illness Encounter Date Complaint History Of Prese nt Illness No Information Functional Status Date Functional Assessmen t No Information Instructions Date Instruction Additional Infor mation Patient education booklet given Related to Venous insufficiency (chronic) (peripheral) Lifestyle education Related to B maeve mass index (BMI) 50-59.9 , adult Giving Encouragement to exercise Related to Body mass index (BMI) 50-59.9 , adult Diet education Related to Body mass index (BMI) 50-59.9 , adult Compression stocking usage as conservative measure Related to Venous insufficiency (chronic) (peripheral) Assessments Type Assessment Date No Information Patient Care Teams Name Effective Dates (start - stop) Status Members No Information
--- OUTSIDE RECORDS SUMMARY | 2024-07-13 05:54 | XMS_ITS | Encounter Summary ---
Author Organization [facility] Address [address] [place] [address] [place] [address] Care Team Providers Care Morning Show Host Name Role Phone Unavailable Primary Care Provider Unavailabl e Encounter Details Date Type Department Care Team (Late st Contact Info) Description 07/03/2023 Abstract [facility] [address] [place] [address] Johnathan Amaya, DMD [address] [place] [address] Social History Tobacco Use Types Packs/Day Years [...] Description 07/28/2024 8:00 AM EST Office Visit [facility] [address] [place] [address] Johnathan Amaya, DMD [address] [place] [address] documented as of this encounter Visit Diagnoses Not on filedocumented in this encounter
[2024-07-13 06:02] LABS: Basophils Absolute Auto 0.1 X10*3/uL (0.0-0.2); Basophils Percent Auto 0.6 % (0-2); Eosinophils Absolute Auto 0.3 X10*3/uL (0.0-0.4); Eosinophils Percent Auto 3.8 % (0-4); Hematocrit 39.2 % (42.0-52.0); Hemoglobin 12.8 g/dl (14.0-18.0); Imm Gran Abs Auto 0.02 X10*3/uL (0.00-0.03); Imm Gran Pct Auto 0.3 % (0.0-0.4); Lymphocytes Absolute Auto 1.2 X10*3/uL (1.2-4.9); Lymphocytes Percent Auto 15.5 % (20-40); Mean Corpuscular HGB Conc 32.7 g/dl (31.0-36.0); Mean Corpuscular Volume 88.9 fL (80.0-98.0); Mean Platelet Volume 9.3 fL (9.4-12.4); Monocytes Absolute Auto 0.9 X10*3/uL (0.1-1.2); Monocytes Percent Auto 10.9 % (2-11); Neutrophils Absolute Auto 5.5 x10*3/uL (2.0-8.3); Neutrophils Percent Auto 68.9 % (45-73); Platelet Count 125 X10*3/uL (160-400); Red Blood Count 4.41 X10*6/uL (4.60-5.80); Red Cell Distribution Width 15.2 % (11.0-16.0)
[2024-07-13 06:26] LABS: Alanine Aminotransferase 15 U/L (0-40); Albumin Level 3.8 g/dL (3.5-5.0); Alkaline Phosphatase 57 U/L (39-117); Anion Gap 15 (12-20); Aspartate Amino Transferase 23 U/L (5-37); Bilirubin Total 0.6 mg/dL (0.0-1.0); Blood Urea Nitrogen 40 mg/dL (9-16); Carbon Dioxide 23 mmol/L (22-29); Chloride 106 mmol/L (96-108); Estimated Glomerular Filt Rate 48; Glucose Fasting 99 mg/dL (60-99); Iron 62 mcg/dL (45-160); Percent Iron Saturation 21 % (15-50); Potassium 4.3 mmol/L (3.3-5.1); Sodium 140 mmol/L (135-145); Total Iron Binding Capacity 301 mcg/dL (228-428); Total Protein 6.3 g/dL (6.5-8.0); Unsaturated Iron Binding 239 ug/dL
[2024-07-13 06:41] LABS: Ferritin 130 ng/mL (20-250)
[2024-07-13 10:49] LABS: Creatinine Urine 35.57 mg/dL; Microalbumin Urine < 5.0 mg/L
== END 2024-07-13 05:51 | disposition home or self-care (01) ==
LOC: HO.HSH4E 05:50
PROVIDERS: Visit Provider Internal Medicine
DX: N18.9 Chronic kidney disease, unspecified (principal)
CPT/HCPCS: 36415; 80053; 82043; 82570; 82728; 83540; 84443; 85025

== ENCOUNTER 2024-07-14 06:17 | Outpatient (REF) | payer MEDICARE, MEDICAID, SELFPAY ==
[2024-07-14 06:58] LABS: B Type Natriuretic Peptide 203 pg/mL (<100)
[2024-07-14 10:42] LABS: Adenovirus PCR Not Detected (Not Detect.); Bordetella parapertussis PCR Not Detected (Not Detect.); Bordetella pertussis PCR Not Detected (Not Detect.); Chlamydia pneumoniae PCR Not Detected (Not Detect.); Coronavirus 229E PCR Not Detected (Not Detect.); Coronavirus HKU1 PCR Not Detected (Not Detect.); Coronavirus NL63 PCR Not Detected (Not Detect.); Coronavirus OC43 PCR Not Detected (Not Detect.); Human metapneumovirus PCR Not Detected (Not Detect.); Influenza A PCR Not Detected (Not Detect.); Influenza B PCR Not Detected (Not Detect.); Mycoplasma pneumoniae PCR Not Detected (Not Detect.); Parainfluenza 1 PCR Not Detected (Not Detect.); Parainfluenza 2 PCR Not Detected (Not Detect.); Parainfluenza 3 PCR Not Detected (Not Detect.); Parainfluenza 4 PCR Not Detected (Not Detect.); RSV PCR Not Detected (Not Detect.); Rhino/Enterovirus PCR Detected (Not Detect.)
[2024-07-14 10:51] LABS: SARS-CoV-2 PCR Not Detected (Not Detect.)
== END 2024-07-14 06:18 | disposition home or self-care (01) ==
LOC: HO.HSH4E 06:17
PROVIDERS: Visit Provider Internal Medicine
DX: R06.2 Wheezing (principal)
CPT/HCPCS: 36415; 83880; 87633

== ENCOUNTER 2024-10-23 02:42 | Emergency (ER) | payer OTHER, SELFPAY ==
--- NOTE | 2024-10-23 | ECG_ITS ---
Test Reason : altered mental status Blood Pressure : */* mmHG Vent. Rate : 62 BPM Atrial Rate : * BPM P-R Int : * ms QRS Dur : 146 ms QT Int : 440 ms P-R-T Axes : * -56 -72 degrees QTcB Int : 446 ms Atrial fibrillation Left axis deviation Left ventricular hypertrophy with QRS widening ( R in aVL , Liberty product ) Abnormal ECG When compared with ECG of 11-Oct-2023 14:25, (RBBB and left anterior fascicular block) is no longer Present Criteria for Septal infarct are no longer Present Referred By: Generic ED Physician Electronically Signed By: TIFFANIE PEDROZA MD
--- NOTE | ~2024-10-23 | XR_ITS ---
CLINICAL HISTORY: dyspnea 1 view chest x-ray Comparison: CR/SR - XR CHEST 1V - 10/11/23 14:07 EDT Findings: Patient is rotated on this study. Lungs are hypoinflated. Cardiac silhouette is moderately enlarged. Central interstitial markings are diffusely prominent. Likely small bilateral pleural effusions. Degenerative change of both shoulder joints. IMPRESSION: Findings most characteristic of congestive heart failure. Perihilar bronchitis/bronchiolitis could give a similar appearance. This document has been electronically signed by: Kalia Marshall MD on 10/23/2024 05:59:35
[2024-10-23 03:05] VITALS: BP 158/106; PULSE 66; O2SAT 97
[2024-10-23 03:06] VITALS: BP 168/87; PULSE 60; RESP 18; TEMP 36.5; O2SAT 96; BMI 57.0
[2024-10-23 03:40] LABS: Appearance Urine Clear; Color Urine Yellow; Glucose Urine UA Negative (Negative); Leukocyte Esterase Urine Negative (Negative); Nitrite Urine Negative (Negative); PH 5.5 (5.0-9.0); Specific Gravity - Urine 1.015 (1.005-1.025); Urine Blood Negative (Negative); Urine Ketones Negative (Negative); Urine Protein Negative (Neg-Trace)
[2024-10-23 03:50] LABS: Amphetamine Screen Urine Not Detected (Not Detect); Barbiturates, Urine Not Detected (Not Detect); Benzodiazepines Screen Urine Not Detected (Not Detect); Buprenorphine Scr Not Detected (Not Detect); Cannabinoid Screen Urine Not Detected (Not Detect); Cocaine Screen Urine Not Detected (Not Detect); Fentanyl, urine Not Detected (Not Detect); Methadone Screen, Urine Not Detected (Not Detect); Opiate Screen Urine Not Detected (Not Detect); Oxycodone Screen Urine Not Detected (Not Detect); Phencyclidine Screen Urine Not Detected (Not Detect)
--- NOTE | 2024-10-23 04:21 | ED.GENADULT ---
HPI - General Adult General Chief complaint: Altered Mental Status Stated complaint: AMS for an hour Time Seen by Provider: 10/23/24 04:20 History of Present Illness ED Provider: Raquel MG narrative: the patient is a 79-year-old male who lives at the [facility] home. Apparently he had a sponge bath in his bed this evening. Afterwards he asked staff if he could be put in the shower. I believes staff felt this was an unusual request and thought that perhaps he was confused and had him sent here for evaluation. Patient says that he feels fine otherwise. He denies headache, chest pain, abdominal pain, shortness of breath, cough, sputum, fever, sweats, chills. The patient has a history of chronic atrial fibrillation. He is on metoprolol. I see previous references to him being on rivaroxaban but I do not see it on his current medication list. Related Data Home Medications ?Medication ?Instructions ?Recorded ?Confirmed Lactobacillus acidoph-L.bulgaricus 1 tab PO DAILY@59902/11/22 09/05/22 1 million cell tablet (Floranex) acetaminophen 325 mg tablet 650 mg PO BEDTIME 02/11/22 09/05/22 acetaminophen 325 mg tablet 650 mg PO Q6H PRN Pain, Mild (Pain 02/11/22 09/05/22 Scale 1-3)/FEVER aloe vera 5,000 mg capsule 20,000 mg PO DAILY@59902/11/22 09/05/22 ascorbic acid (vitamin C) 250 mg 500 mg PO DAILY@59902/11/22 09/05/22 tablet (Vitamin C) coenzyme Q10 200 mg capsule 200 mg PO DAILY@59902/11/22 09/05/22 dextromethorphan-guaifenesin 10 10 ml PO QID PRN Cough 02/11/22 09/05/22 mg-100 mg/5 mL oral syrup omega 2-swn-ekb-fish oil 1,200 mg 2 cap PO DAILY@59902/11/22 09/05/22 (144 mg-216 mg) capsule (Fish Oil) psyllium husk 3.4 gram/5.4 gram 1 tbsp PO DAILY PRN Constipation 02/11/22 09/05/22 oral powder (Metamucil) vitamin E (dl, acetate) 180 mg 180 mg PO DAILY@0600 02/11/22 09/05/22 (400 unit) capsule Nature Fruits Cap 1 cap PO BID 06/03/22 09/05/22 Vital Protein Collagen Peptide 2 ea PO DAILY 06/03/22 09/05/22 docusate sodium 100 mg capsule 100 mg PO DAILY PRN Constipation 06/03/22 09/05/22 (Colace) ipratropium 0.5 mg-albuterol 3 mg 3 ml inhalation Q4H PRN Wheezing 06/03/22 09/05/22 (2.5 mg base)/3 mL nebulization soln prednisone 5 mg tablet 5 mg PO DAILY 09/05/22 09/05/22 Previous Rx's ?Medication ?Instructions ?Recorded bisacodyl 10 mg rectal suppository 10 mg [place] DAILY PRN Constipation 06/05/20 (Gentle Laxative (bisacodyl)) #30 ea magnesium hydroxide 400 mg/5 mL 30 ml PO DAILY PRN Constipation 06/05/20 oral suspension (Milk of Magnesia) #300 mL magnesium oxide 400 mg (241.3 mg 400 mg PO DAILY@0600 #30 tabs 06/05/20 magnesium) tablet metoprolol succinate 100 mg 100 mg PO DAILY@0600 #30 tabs 06/05/20 tablet,extended release 24 hr metoprolol succinate 25 mg 25 mg PO DAILY@0600 #30 tabs 06/05/20 tablet,extended release 24 hr prednisone 10 mg tablet See Taper PO DIRECTED #11 tabs 09/09/22 rivaroxaban 15 mg tablet (Xarelto) 15 mg PO BID 21 days #42 tabs 10/29/22 rivaroxaban 20 mg tablet (Xarelto) 20 mg PO DAILY #30 tabs 10/29/22 Allergies Allergy/AdvReac Type Severity Reaction Status Date / Time cephalexin [From KEFLEX] Allergy Unknown UNKNOWN Verified 10/23/24 03:12 furosemide [From Lasix] Allergy Unknown Rash Verified 10/23/24 03:12 meropenem [MEROPENEM] Allergy Unknown UNKNOWN Verified 10/23/24 03:12 Penicillins [PENICILLINS] Allergy Unknown UNKNOWN Verified 10/23/24 03:12 sulfamethoxazole Allergy Unknown UNKNOWN Verified 10/23/24 03:12 [From BACTRIM] trimethoprim [From BACTRIM] Allergy Unknown UNKNOWN Verified 10/23/24 03:12 Review of Systems Review of Systems: Yes all other systems are reviewed and are negative [facility] Past Medical History Medical History Anemia, unspecified B-cell lymphoma Cellulitis of leg Chronic a-fib COPD (chronic obstructive pulmonary disease) Dermatitis Edema Hammer toes of both feet Hearing loss Impaired fasting glucose Mild cognitive impairment Morbid obesity Nail dystrophy Osteoarthritis Pain in right shoulder Stage 3 chronic kidney disease Unspecified atherosclerosis of [place] arteries of extremities, bilateral legs Surgical History No pertinent past surgical history Family History Family History Other No family history of coronary artery disease Social History Social History Household Members: Other Housing: Assisted Do you presently have visiting nurse or other home services: No Alcohol intake: never Comment: pt in overflow Patient Tobacco Use Status: Former Tobacco user Tobacco use type: Cigarette Second Hand Smoke Exposure: No Advance Directives: Yes Advance Directives on File: Yes Advance Directives Date on File: 06/04/22 service: Yes Current occupational status: retired Physical Exam ED Vital Signs: Vital Signs - 24 hr 10/23/24 03:06 10/23/24 05:46 10/23/24 06:06 Temperature 97.7 F Pulse Rate 60 56 85 Respiratory Rate 18 20 24 H Blood Pressure 168/87 H 151/71 H 163/85 H Pulse Oximetry 96 96 95 Oxygen Delivery Method Room Air Room Air Room Air 10/23/24 08:18 Temperature 95.9 F L Pulse Rate 64 Respiratory Rate 18 Blood Pressure 149/75 H Pulse Oximetry 96 Oxygen Delivery Method Room Air BMI result Body Mass Index 57.0 Const Other: The patient is a morbidly obese an obviously very chronically ill appearing 79-year-old. He is awake and alert with a pleasant demeanor. He seems appropriately oriented. He does not seem in acute distress. HENMT Other: Face is symmetrical, mucous membranes moist. Eyes General: appearance normal, both eyes and all related structures Neck Neck: Yes normal visual inspection, Yes full ROM and Yes no JVD Resp Effort & Inspection: normal respiratory effort Auscultation: clear to auscultation bilaterally Cardio Other: The patient has an irregular rate and rhythm with no definite murmur GI Other: abdomen is soft and nontender Skin Other: skin is pale and dry. There are some venous stasis changes to the skin of the lower legs. Neuro Other: The patient is awake and alert and seems to have a normal mental status. Cranial nerves are grossly intact. He moves his extremities symmetrically. He is chronically weak and deconditioned. No focal finding. Extrem Other: The patient is lower legs did not exhibit any significant edema. His calves seems symmetrical and nontender. Medical Decision Making Medical Decision Making MDM Narrative: The patient is a 79-year-old male who lives chronically at the [facility]. He is morbidly obese and nonambulatory at baseline. He has chronic atrial fibrillation. Reportedly his behavior at the [facility] tonight was abnormal but his mental status here seems benign as far as I can tell. He seems awake and alert and seems fairly well oriented. He is able to tell me his own personal history and family history. He has no particular complaints. He has no pain. Basic workup in the emergency room is unremarkable. His chest x-ray was read as showing possibly some mild increased interstitial markings potentially consistent with congestive heart failure. Clinically he does not seem to be in congestive heart failure. The patient is an atrial fibrillation which I believe is chronic. I see previous prescriptions for rivaroxaban. I do not see rivaroxaban on his current medication list from the [facility]. I asked the patient about this and he could not tell me whether he has been taken off anticoagulation for any particular reason. my overall impression is that the patient does not seem obviously acutely ill or require further testing or hospitalization today. I think he may return to the [facility]. I think the question of whether he should be on anticoagulation may be addressed by his team at the [facility]. Lab Data 10/23/24 05:28 10/23/24 05:27 Labs: Lab Results 10/23/24 10/23/24 10/23/24 Range/Units 03:34 05:27 05:28 WBC 5.9 (4.8-10.8) X10*3/uL RBC 4.98 (4.60-5.80) X10*6/uL Hgb 14.3 (14.0-18.0) g/dl Hct 44.0 (42.0-52.0) % MCV 88.4 (80.0-98.0) fL MCH 28.7 (27.0-33.0) pg MCHC 32.5 (31.0-36.0) g/dl RDW 14.1 (11.0-16.0) % Plt Count 142 L (160-400) X10*3/uL MPV 8.6 L (9.4-12.4) fL Immature Gran % (Auto) 0.2 (0.0-0.4) % Neut % (Auto) 56.9 (45-73) % Lymph % (Auto) 23.9 (20-40) % [place] % (Auto) 11.8 H (2-11) % Eos % (Auto) 6.5 H (0-4) % Baso % (Auto) 0.7 (0-2) % Lymph # (Auto) 1.4 (1.2-4.9) X10*3/uL [place] # (Auto) 0.7 (0.1-1.2) X10*3/uL Eos # (Auto) 0.4 (0.0-0.4) X10*3/uL Baso # (Auto) 0.0 (0.0-0.2) X10*3/uL Abs Immat Gran (auto) 0.01 (0.00-0.03) X10*3/uL Absolute Neuts (auto) 3.2 (2.0-8.3) x10*3/uL Absolute Nucleated RBC 0.000 (0.0-0.012) X10*3/uL Nucleated RBC % (auto) 0.0 (0.0-0.2) /100WBC Sodium 143 (135-145) mmol/L Potassium 4.5 (3.3-5.1) mmol/L Chloride 108 (96-108) mmol/L Carbon Dioxide 27 (22-29) mmol/L Anion Gap 13 (12-20) BUN 42 H (9-16) mg/dL Creatinine 1.35 (0.5-1.4) mg/dL Estim Creat Clear Calc 73.9 Estimated GFR 51 Random Glucose 94 (60-115) mg/dL Calcium 9.3 (8.4-10.2) mg/dL Total Bilirubin 0.5 (0.0-1.0) mg/dL AST 29 (5-37) U/L ALT 24 (0-40) U/L Alkaline Phosphatase 63 (39-117) U/L Troponin I High Sens 20.6 (<3.5-35.0) ng/L B-Natriuretic Peptide 67 (<100) pg/mL Total Protein 6.5 (6.5-8.0) g/dL Albumin 3.9 (3.5-5.0) g/dL Urine Color Yellow Urine Appearance Clear Urine pH 5.5 (5.0-9.0) Ur Specific [place] 1.015 (1.005-1.025) Urine Protein Negative (Neg-Trace) mg/dL Urine Glucose (UA) Negative (Negative) mg/dL Urine Ketones Negative (Negative) mg/dL Urine Blood Negative (Negative) Urine Nitrite Negative (Negative) Ur Leukocyte Esterase Negative (Negative) Urine Opiates Screen Not Detected (Not Detect) Ur Buprenorphine Scrn Not Detected (Not Detect) ng/mL Ur Oxycodone Screen Not Detected (Not Detect) ng/mL Urine Methadone Screen Not Detected (Not Detect) ng/mL Urine Fentanyl Screen Not Detected (Not Detect) Ur Barbiturates Screen Not Detected (Not Detect) Ur Phencyclidine Scrn Not Detected (Not Detect) Ur Amphetamines Screen Not Detected (Not Detect) U Benzodiazepines Scrn Not Detected (Not Detect) Urine Cocaine Screen Not Detected (Not Detect) U Marijuana (THC) Screen Not Detected (Not Detect) Independent Interpretation I performed an independent interpretation of an: EKG Interpretation: EKG at 07/31/2002 shows atrial fibrillation at 62 beats per minute. There is a left bundle branch block. Previous EKGs have indicated a right bundle branch block and a left anterior fascicular block. I think the patient's EKG today is simply a progression of previous conduction abnormalities. No definite acute finding. Discharge Plan Discharge Clinical Impression: Weakness, Chronic atrial fibrillation Patient Disposition: [facility] Transfer Details: BACK TO [facility] Additional Instructions: Your testing in the emergency room today seems reassuring. Your vital signs seem stable. I have reviewed your medications. It is not clear to me whether you are taking an anticoagulant medication. You may be on an anticoagulant called rivaroxaban (Xarelto). Please confirm with your care team at the [facility]. Follow up with your regular providers. Return to the emergency room if you feel significantly worse. Prescriptions: No Action metoprolol succinate 100 mg Tablet Extended Release 24 Hr 100 mg PO DAILY@0600 Qty: 30 0RF Rx Instructions: TDD = 125 MG magnesium oxide 400 mg (241.3 mg magnesium) Tablet 400 mg PO DAILY@0600 Qty: 30 0RF magnesium hydroxide [Milk of Magnesia] 400 mg/5 mL Suspension 30 ml PO DAILY PRN (Reason: Constipation) Qty: 300 0RF bisacodyl [Gentle Laxative (bisacodyl)] 10 mg Suppository 10 mg IL DAILY PRN (Reason: Constipation) Qty: 30 0RF metoprolol succinate 25 mg Tablet Extended Release 24 Hr 25 mg PO DAILY@0600 Qty: 30 0RF Rx Instructions: TDD = 125 MG acetaminophen 325 mg Tablet 650 mg PO BEDTIME dextromethorphan-guaifenesin 10-100 mg/5 mL Syrup 10 ml PO QID PRN (Reason: Cough) ascorbic acid (vitamin C) [Vitamin C] 250 mg Tablet 500 mg PO DAILY@0600 aloe vera 5,000 mg Capsule 20,000 mg PO DAILY@0600 coenzyme Q10 200 mg Capsule 200 mg PO DAILY@0600 vitamin E (dl, acetate) 180 mg (400 unit) Capsule 180 mg PO DAILY@0600 omega 1-izd-lyf-fish oil [Fish Oil] 1,200 (144-216) mg Capsule 2 cap PO DAILY@0600 Lactobacillus acidoph-L.bulgar [Floranex] 1 million cell Tablet 1 tab PO DAILY@0600 Metamucil 3.4 gram/5.4 gram Powder 1 tbsp PO DAILY PRN (Reason: Constipation) Rx Instructions: mix into at least 8 oz of water or juice before administering acetaminophen 325 mg tablet 650 mg PO Q6H PRN (Reason: Pain, Mild (Pain Scale 1-3)/FEVER) ipratropium-albuterol 0.5 mg-3 mg(2.5 mg base)/3 mL Solution For Nebulization 3 ml INHALATION Q4H PRN (Reason: Wheezing) docusate sodium [Colace] 100 mg Capsule 100 mg PO DAILY PRN (Reason: Constipation) Nature Fruits Cap 1 cap PO BID Vital Protein Collagen Peptide 2 ea PO DAILY Rx Instructions: mix with hot coffee or tea Xarelto 15 mg tablet 15 mg PO BID 21 Days Qty: 42 0RF Rx Instructions: Please take for 21 days then 20 mg daily Xarelto 20 mg tablet 20 mg PO DAILY Qty: 30 0RF Rx Instructions: must administer with evening meal prednisone 5 mg Tablet 5 mg PO DAILY prednisone 10 mg tablet See Taper PO DIRECTED Qty: 11 0RF Taper: Prednisone 40 mg daily for 1 Day and 0 Hour 30 mg daily for 1 Day and 0 Hour 20 mg daily for 1 Day and 0 Hour 10 mg daily for 2 Days and 0 Hour Rx Instructions: see taper instructions Referrals: Lalit John MD [Primary Care Provider] - Print Language: Romanian
[2024-10-23 05:31] LABS: Hemoglobin 14.3 g/dl (14.0-18.0); Mean Corpuscular HGB Conc 32.5 g/dl (31.0-36.0); Mean Corpuscular Hemoglobin 28.7 pg (27.0-33.0); Mean Corpuscular Volume 88.4 fL (80.0-98.0); Mean Platelet Volume 8.6 fL (9.4-12.4); Platelet Count 142 X10*3/uL (160-400); Red Blood Count 4.98 X10*6/uL (4.60-5.80); Red Cell Distribution Width 14.1 % (11.0-16.0); White Blood Count 5.9 X10*3/uL (4.8-10.8)
[2024-10-23 05:46] VITALS: BP 151/71; PULSE 56; RESP 20; O2SAT 96
[2024-10-23 05:46] LABS: Alanine Aminotransferase 24 U/L (0-40); Albumin Level 3.9 g/dL (3.5-5.0); Alkaline Phosphatase 63 U/L (39-117); Anion Gap 13 (12-20); Aspartate Amino Transferase 29 U/L (5-37); Bilirubin Total 0.5 mg/dL (0.0-1.0); Blood Urea Nitrogen 42 mg/dL (9-16); Calcium 9.3 mg/dL (8.4-10.2); Carbon Dioxide 27 mmol/L (22-29); Chloride 108 mmol/L (96-108); Creatinine Clr Calc Pharmacy 73.9; Estimated Glomerular Filt Rate 51; Glucose Random 94 mg/dL (60-115); Potassium 4.5 mmol/L (3.3-5.1); Sodium 143 mmol/L (135-145); Total Protein 6.5 g/dL (6.5-8.0)
[2024-10-23 06:05] LABS: MANUAL DIFF FLAG NO
[2024-10-23 06:06] VITALS: BP 163/85; PULSE 85; RESP 24; O2SAT 95
[2024-10-23 06:07] LABS: Basophils Percent Auto 0.7 % (0-2); Eosinophils Absolute Auto 0.4 X10*3/uL (0.0-0.4); Eosinophils Percent Auto 6.5 % (0-4); Imm Gran Abs Auto 0.01 X10*3/uL (0.00-0.03); Imm Gran Pct Auto 0.2 % (0.0-0.4); Lymphocytes Absolute Auto 1.4 X10*3/uL (1.2-4.9); Lymphocytes Percent Auto 23.9 % (20-40); Monocytes Absolute Auto 0.7 X10*3/uL (0.1-1.2); Monocytes Percent Auto 11.8 % (2-11); Neutrophils Absolute Auto 3.2 x10*3/uL (2.0-8.3); Neutrophils Percent Auto 56.9 % (45-73)
[2024-10-23 06:35] LABS: Troponin-I High Sensitivity 20.6 ng/L (<3.5-35.0)
[2024-10-23 07:48] LABS: B Type Natriuretic Peptide 67 pg/mL (<100)
[2024-10-23 08:18] VITALS: BP 149/75; PULSE 64; RESP 18; TEMP 35.5; O2SAT 96
[2024-10-23 10:40] VITALS: BP 149/75; PULSE 64; RESP 18; TEMP 36.8; O2SAT 96
== END 2024-10-23 10:41 ==
PROVIDERS: Emergency Provider Emergency Medicine; PCP Internal Medicine
DX: R53.1 Weakness (principal); I48.20 Chronic atrial fibrillation, unspecified; J44.9 Chronic obstructive pulmonary disease, unspecified; E66.01 Morbid (severe) obesity due to excess calories; Z68.43 Body mass index [BMI] 50.0-59.9, adult; Z87.891 Personal history of nicotine dependence; Z79.01 Long term (current) use of anticoagulants; Z79.899 Other long term (current) drug therapy
CPT/HCPCS: 36415; 71045; 80053; 80307; 81003; 83880; 84484; 85025; 85027; 93005; 99283; 99285

== ENCOUNTER → 2024-10-23 03:38 | Outpatient (BNV) | payer MEDICARE, MEDICAID, SELFPAY | PROVIDERS: Emergency Provider Emergency Medicine; PCP Internal Medicine; Visit Provider Internal Medicine Cardiovascular Disease | DX: I48.91 Unspecified atrial fibrillation (principal) | CPT/HCPCS: 93010 ==

== ENCOUNTER → 2024-10-23 04:34 | Outpatient (BNV) | payer MEDICARE, MEDICAID, SELFPAY | PROVIDERS: Emergency Provider Emergency Medicine; Visit Provider Radiology Diagnostic Radiology | DX: R06.00 Dyspnea, unspecified (principal) | CPT/HCPCS: 71045 ==

== ENCOUNTER 2024-11-16 15:08 | Outpatient (REF) | payer OTHER, SELFPAY ==
--- OUTSIDE RECORDS SUMMARY | 2024-11-16 18:23 | XMS_ITS | Clinical Summary ---
Author Organization [employer] Address [address] [facility] [address] [place] [address] Care Team Providers Care Sand Control Worker Name Role Phone Unavailable Primary Care Provider [...] C) 500 MG ER capsule Active B Xybihtl-K-Mkzrb Acid (Dane Caps) 1 MG capsule Take [...] and before evening meal. Active Active Problems Problem Noted Date Diagnosed Date Severe obesity 07/28/2024 Atrial fibrillation 04/25/2011 Encounters Date Type Department Care Team Description 09/09/2024 8:00 AM EDT Office Visit [facility] [address] [place] [id number] Isabell Alvarado from Last 3 Months Social [...] Care Team (Late st Contact Info) Description 11/24/2024 8:45 AM EDT Office Visit [facility] [address] [place] [address] Johnathan Amaya, DMD [address] [place] [address] 12/08/2024 8:00 AM EDT Office Visit [facility] [address] [place], [place] [id number] Betzy Desir Health Maintenance Due Date Last Done Comments Depression Screening 1945 Lipid Panel 1946 SDOH Screening 1946 Alcohol/Substance Use Screening 1958 Hepatitis C Screening 1964 DTaP/Tdap/Td Vaccines (1 - Tdap) 1965 Pneumococcal Vaccine: 50+ Years (1 of 1 - PCV) 1996 Zoster Vaccines (1 of 2) 1996 RSV Patients and Patients Aged 60 years or older (1 - 1-dose 75+ series) 2021 COVID-19 Vaccine ( - season) 2024 Dental X-Ray: Full Mouth 12/06/2024 022, 06/05/2018, 06/27/2017 Dental X-Ray: Bitewings 12/10/2024 12/10/19 24, 02/19/2023, 12/05/2021, Additional history exists Influenza Vaccine (Season Ended) 2025 Dental Oral Exam 01/29/2025 07/28/2024, , 04/30/2023, Additional history exists Dental Prophylaxis 03/12/2025 09/09/2024, 0 06/01/2024, 03/10/2024, Additional history exists Tobacco Screening 09/09/2025 09/09/2024 HIB Vaccines Aged Out No longer eligi [...] patient's age to complete this topic Meningococcal B Vaccine Aged Out No l onger eligible based on patient's age to complete [...] ORAL HYGIENE INSTRUCTIONS Routine 2024 8:00 AM EDT TOPICAL APPLICATION OF FLUORIDE VARNISH Routine 09/09/2024 8:00 AM EDT PROPHYLAXIS - ADULT Routine 09/09/2024 8 :00 AM EDT PERIODIC ORAL EVALUATION - ESTABLISHED PATIENT Routine 07/28/2024 8:00 AM EST BITEWINGS - 4 RADIOGRAPHIC IMAGES Routine 12/10/2023 8:00 AM EDT INTRAORAL - COMPLETE SERIES OF RADIOGRAPHIC IMAGES Routine 12/05/2021 12:00 AM EDT from Last 3 Months or Most Recently Relevant to Health Maintenance Insurance [facility] MEDICAID STAND ADULT Advance Directives Documents on File Type Date Recorded Patient Power Plant Manager Expl anation HealthCare Proxy 11/06/2023 11:01 AM Vandana fiction on Invoke status per [facility] Advance Directives and Living Will 04/11/2023 Life Sustaining Treatment Power of Campus Rep 04/11/2023 POA HealthCare Proxy 04/11/2023 Health Care Proxy Power of Campus Rep 09/11/2022 5:40 PM Power of Campus Rep 09/11/2022
== END 2024-11-16 15:09 | disposition home or self-care (01) ==
LOC: HO.HSH4E 15:08
PROVIDERS: Visit Provider Internal Medicine
DX: L03.90 Cellulitis, unspecified (principal)
CPT/HCPCS: 87070; 87077; 87186; 87205

== ENCOUNTER 2025-01-20 08:29 | Outpatient (REF) | payer OTHER, SELFPAY ==
[2025-01-20 08:40] LABS: Appearance Urine Clear; Glucose Urine UA Negative (Negative); PH 6.0 (5.0-9.0); Specific Gravity - Urine 1.015 (1.005-1.025); UMIC TRIGGER UACC YES
[2025-01-20 08:43] LABS: UACC Culture Trigger YES
--- OUTSIDE RECORDS SUMMARY | 2025-01-20 09:10 | XMS_ITS | Encounter Summary ---
Author Organization [facility] Address [address] [facility] [address] [place] [address] Care Team Providers Care Qc Tech Name Role Phone Unavailable Primary Care Provider Unavailabl e Encounter Details Date Type Department Care Team (Late st Contact Info) Description 07/03/2023 Abstract [facility] [address] [place] [address] Johnathan Amaya, DMD [address] [place] [address] Social History Tobacco Use Types Packs/Day Years Used Date Smoking Tobacco: Unknown Sex and Gender Information Value Date Recorded Sex Assigned at Male 03/25/2022 10:24 AM EDT Legal Sex Male 10:24 AM EDT Gender Identity Male 03/25/2022 10:24 AM EDT Sexual Orientation Straight 03/25/2022 10 :24 AM EDT documented as of this encounter Plan of Treatment Not on file documented as of this encounter Visit Diagnoses Not on filedocumented in this encounter
--- OUTSIDE RECORDS SUMMARY | 2025-01-20 09:10 | XMS_ITS | Encounter Summary ---
Author Organization [employer] Address [address] [facility] 7 [place] [address] Care Team Providers Care Head Of Sales Promotion Name Role Phone Unavailable Primary Care Provider Unavailabl e Encounter Details Date Type Department Care Team (Latest Contact Info) Description 01/23/2022 Abstract [facility] CONVERSIONS Dental, Provider, DDS Social History [...]
--- OUTSIDE RECORDS SUMMARY | 2025-01-20 09:10 | XMS_ITS | Encounter Summary ---
Author Organization [employer] Address [address] [facility] [address] [place] [address] Care Team Providers Care Wellness Program Manager Name Role Phone Unavailable Primary Care Provider Unavailabl e Encounter Details Date Type Department Care Team (Latest Contact Info) Description 06/09/2018 Abstract [facility] CONVERSIONS Dental, Provider, DDS Social History Tobacco [...]
--- OUTSIDE RECORDS SUMMARY | 2025-01-20 09:10 | XMS_ITS | Clinical Summary ---
Author Organization [employer] Address 75 [facility] 7t [place] [address] Care Team Providers Care Scraper Burrer Name Role Phone Unavailable Primary Care Provider [...] C) 500 MG ER capsule Active B Qwiqtka-F-Zujda Acid (Sterling Caps) 1 MG capsule Take 1 capsule [...] before breakfast and before evening meal. Active zinc oxide 20 % ointment Apply topically if needed. Active nystatin (Mycostatin) 097771 UNIT/GM powder Apply topically 2 times daily. Active polyethylene glycol, PEG, 3350 (Miralax) 17 g packet Take by mouth. Act vitaly betamethasone, augmented, (Diprolene AF) 0.05 % cream Apply topically 2 times daily. Active Active Problems Problem Noted Date Diagnosed Date Severe obesity 07/28/2024 Atrial fibrillation 04/25/2011 Encounters Date Type Department Care Team Description 12/08/2024 8:00 AM EDT Office Visit [facility] [address] [place] [address] Betzy Desir 11/24/2024 8:45 AM EDT Office Visit [facility] [address] [place] [address] Johnathan Amaya DMD from Last 3 Months Social History Tobacco [...] Mass Index - - Plan of Treatment Health Maintenance Due Date Last Done Comments [...] 75+ series) 2021 COVID-19 Vaccine (1 - 2023- season) 2024 Dental X-Ray: Full Mouth 12/06/2024 022, 06/05/2018, 06/27/2017 Dental X-Ray: Bitewings 12/10/2024 12/10/19 24, 02/19/2023, 12/05/2021, Additional history exists Influenza Vaccine (#1) 2025 Dental Oral Exam 05/28/2025 11/24/2024, 09/2024, 12/10/2023, Additional history exists Dental Prophylaxis 06/11/2025 12/08/2024, 0 09/09/2024, 06/01/2024, Additional history exists Tobacco Screening 12/08/2025 12/08/2024 HIB Vaccines Aged Out No longer eligi [...] Procedure Name Priority Date/Time Associated Diagnosis Comments PROPHYLAXIS - ADULT Routine 12/08/2024 8 :00 AM EDT TOPICAL APPLICATION OF FLUORIDE VARNISH Routine 12/08/2024 8:00 AM EDT ORAL HYGIENE INSTRUCTIONS Routine 2024 8:00 AM EDT CASE PRESENTATION, DETAILED AND EXTENSIVE TREATMENT PLANNING Routine 11/24/2024 8:45 AM EDT PERIODIC ORAL EVALUATION - ESTABLISHED PATIENT Routine 11/24/2024 8:45 AM EDT BITEWINGS - 4 RADIOGRAPHIC IMAGES Routine 12/10/2023 8:00 AM EDT INTRAORAL - COMPLETE SERIES OF RADIOGRAPHIC IMAGES Routine 12/05/2021 12:00 AM EDT from Last 3 Months or Most Recently Relevant to Health Maintenance Insurance D[facility]AL-[facility] MEDICAID STAND ADULT Advance Directives Documents on File Type Date Recorded Patient Armature Winder Expl anation HealthCare Proxy 11/06/2023 11:01 AM Vandana feldertion on Invoke status per [facility] Advance Directives and Living Will 04/11/2023 Life Sustaining Treatment Power of Business Agent 04/11/2023 POA HealthCare Proxy 04/11/2023 Health Care Proxy Power of Business Agent 09/11/2022 5:40 PM Power of Business Agent 09/11/2022
--- OUTSIDE RECORDS SUMMARY | 2025-01-20 09:10 | XMS_ITS | Encounter Summary ---
Author Organization [employer] Address 75 [facility] 7 [place] [address] Care Team Providers Care Tank Pumper Name Role Phone Unavailable Primary Care Provider Unavailabl e Encounter Details Date Type Department Care Team (Late st Contact Info) Description 05/05/2023 Abstract [facility] [address] [place] [address] Johnathan Amaya, DMD [address] [place] [address] Social History Tobacco Use Types Packs/Day Years [...]
--- OUTSIDE RECORDS SUMMARY | 2025-01-20 09:10 | XMS_ITS | Encounter Summary ---
Author Organization [employer] Address 75 [facility] 7 [place] [address] Care Team Providers Care Financial Reporting Manager Name Role Phone Unavailable Primary Care Provider Unavailabl e Encounter Details Date Type Department Care Team (Late st Contact Info) Description 05/09/2023 Abstract [facility] [address] [place] [address] Johnathan Amaya, DMD [address] [facility] [place] [address] Social History Tobacco Use Types Packs/Day Years [...]
== END 2025-01-20 08:30 | disposition home or self-care (01) ==
LOC: HO.HSH4E 08:29
PROVIDERS: Visit Provider Internal Medicine
DX: N18.30 Chronic kidney disease, stage 3 unspecified (principal)
CPT/HCPCS: 81001; 87086

== ENCOUNTER 2025-01-26 06:50 | Outpatient (REF) | payer OTHER, SELFPAY ==
--- OUTSIDE RECORDS SUMMARY | 2023-03-07 04:23 | XMS_ITS | Continuity of Care Document ---
Author Organization [facility] Address [address] [place] [address] [address] [place] [id number] Phone Care Team Providers Care Global Mobility Specialist Name Role Phone Gary Tamayo MD, FACS, RVT Unavailable Unavailable Procedures Procedure Date Office/Oupt E&M New Pt 30 Mins Advance Directives Directive Yes / No Effective Date File Name No Information Encounters Encounter Description Practice Location Reason(s) For Visit Diagnoses Date Provider Providers Copied on Encounter [facility], [address] [place] [address] Dr Kellogg [address] Frieda [place], [id number], [place] tel:[phone] CV - [facility] No Information 3 Hubert Saeed. [address] [address], [place], [address], [place]. tel:[phone] Referring Provider: Lalit John, 3 [facility] [address] [place] [address], [address]. tel:[phone] Office/Oupt E&M New Pt 30 Mins [facility], [address] [place] [address] Dr Kellogg [address]a [place], [id number], [place] tel:[phone] CVR - [facility] Venous insufficiency (chronic) (peripheral)Ly mphedema, not elsewhere classifiedUnsp ecified systolic (congestive) heart failureFlail joint, unspecified joint 3 Hubert Saeed. [address] [address], [place], [address], . tel:[phone] Referring Provider: Gary Gaspar MD FACS RVT [facility], [address] [facility] [address], [place], [address]. tel:[phone] Family History Family Member Type Diagnosis Age At Onset No Information Payers Payer name Insurance type Covered libertarian ID Authoriza tijas(s) Medicare HALLIE RAYMOND [id number] Social History Type Description Quantity Date Captured Comments Sex Male Smoking Status No Information Chief Complaint And Reason For Visit No Information Reason For Referral Reason For Referral No Information Plan Of Treatment Date Type Action Status Goal Diet education completed Goal Tobacco cessation counseling completed Referral Ordered: Weight management: Referral to physician timeframe: 3 Months (related to Body mass index (BMI) 50-59.9 , adult) ordered History Of Present Illness Encounter Date Complaint History Of Prese nt Illness No Information Functional Status Date Functional Assessmen t No Information Instructions Date Instruction Additional Infor mation Diet education Related to Body mass index (BMI) 50-59.9 , adult Giving Encouragement to exercise Related to Body mass index (BMI) 50-59.9 , adult Lifestyle education Related to B maeve mass index (BMI) 50-59.9 , adult Patient education booklet given Related to Venous insufficiency (chronic) (peripheral) Compression stocking usage as conservative measure Related to Venous insufficiency (chronic) (peripheral) Assessments Type Assessment Date No Information Patient Care Teams Name Effective Dates (start - stop) Status Members No Information
[2025-01-26 06:52] LABS: MANUAL DIFF FLAG NO
--- OUTSIDE RECORDS SUMMARY | 2025-01-26 06:53 | XMS_ITS | Encounter Summary ---
Author Organization [employer] Address 75 [facility] 7t [place] [address] Care Team Providers Care Form Setter/Driver Name Role Phone Unavailable Primary Care Provider Unavailabl e Encounter Details Date Type Department Care Team (Latest Contact Info) Description 06/09/[address] [facility] CONVERSIONS Dental, Provider, DDS Social History [...]
--- OUTSIDE RECORDS SUMMARY | 2025-01-26 06:53 | XMS_ITS | Encounter Summary ---
Author Organization [employer] Address 75 [facility] 7 [place] [address] Care Team Providers Care Assembler Dc Field Yoke Name Role Phone Unavailable Primary Care Provider Unavailabl e Encounter Details Date Type Department Care Team (Late st Contact Info) Description 07/03/2023 Abstract [facility] [address] [place] [address] Johnathan Amaya, DMD 230 [place] [address] Social History Tobacco Use Types Packs/Day Years [...]
--- OUTSIDE RECORDS SUMMARY | 2025-01-26 06:53 | XMS_ITS | Clinical Summary ---
Author Organization [employer] Address 75 [facility] 7t [place] [address] Care Team Providers Care Residential Installer Name Role Phone Unavailable Primary Care Provider [...] C) 500 MG ER capsule Active B Azuqkqq-T-Qoibp Acid (Dane Caps) 1 MG capsule Take [...] Apply topically if needed. Active nystatin (Mycostatin) 709719 UNIT/GM powder Apply topically 2 times daily. Active polyethylene glycol, PEG, 3350 (Miralax) 17 g packet Take by mouth. Act vitaly betamethasone, augmented, (Diprolene AF) 0.05 % cream Apply topically 2 times daily. Active Active Problems Problem Noted Date Diagnosed Date Severe obesity 07/28/2024 Atrial fibrillation 04/25/2011 Encounters Date Type Department Care Team Description 12/08/2024 8:00 AM EDT Office Visit [facility] [address] [place] [address] Betzy Desir 11/24/2024 8:45 AM EDT Office Visit [facility] [address] [place] [address] Johnathan Amaya DMD from Last 3 Months [...] Most Recently Relevant to Health Maintenance Insurance [facility]AL[facility] MEDICAID STAND ADULT Advance Directives Documents on File Type Date Recorded Patient Loading Unit Operator Expl anation HealthCare Proxy 11/06/2023 11:01 AM Vandana feldertion on Invoke status per [facility] Advance Directives and Living Will 04/11/2023 Life Sustaining Treatment Power of Flight Attendant Inflight Services 04/11/2023 POA HealthCare Proxy 04/11/2023 Health Care Proxy Power of Flight Attendant Inflight Services 09/11/2022 5:40 PM Power of Flight Attendant Inflight Services 09/11/2022
--- OUTSIDE RECORDS SUMMARY | 2025-01-26 06:53 | XMS_ITS | Encounter Summary ---
Author Organization [employer] Address [address] [facility] 7 [place] [address] Care Team Providers Care Ramp Agent Name Role Phone Unavailable Primary Care Provider Unavailabl e Encounter Details Date Type Department Care Team (Late st Contact Info) Description 05/05/2023 Abstract [facility] [address] [place] [address] Johnathan Amaya, DMD 230 [place] [address] Social History Tobacco Use Types Packs/Day Years [...]
--- OUTSIDE RECORDS SUMMARY | 2025-01-26 06:53 | XMS_ITS | Encounter Summary ---
Author Organization [employer] Address 75 [facility] 7 [place] [address] Care Team Providers Care Hygiene Coordinator Name Role Phone Unavailable Primary Care Provider Unavailabl e Encounter Details Date Type Department Care Team (Latest Contact Info) Description 01/23/2022 Abstract [facility] CONVERSIONS Dental, Provider, DDS Social History [...]
--- OUTSIDE RECORDS SUMMARY | 2025-01-26 06:53 | XMS_ITS | Encounter Summary ---
Author Organization [employer] Address 75 [facility] 7 [place] [address] Care Team Providers Care Buggyman Name Role Phone Unavailable Primary Care Provider Unavailabl e Encounter Details Date Type Department Care Team (Late st Contact Info) Description 05/09/2023 Abstract [facility] [address] [place] [address] Johnathan Amaya, DMD 230 [place] [address] Social History Tobacco Use Types Packs/Day Years [...]
[2025-01-26 07:45] LABS: Hematocrit 43.2 % (42.0-52.0); Hemoglobin 14.1 g/dl (14.0-18.0); Imm Gran Abs Auto 0.02 X10*3/uL (0.00-0.03); Imm Gran Pct Auto 0.4 % (0.0-0.4); Lymphocytes Absolute Auto 1.6 X10*3/uL (1.2-4.9); Mean Corpuscular HGB Conc 32.6 g/dl (31.0-36.0); Mean Corpuscular Hemoglobin 29.4 pg (27.0-33.0); Mean Corpuscular Volume 90.0 fL (80.0-98.0); NRBC Abs Auto 0.000 X10*3/uL (0.0-0.012); NRBC Pct Auto 0.0 /100WBC (0.0-0.2); Platelet Count 129 X10*3/uL (160-400); Red Blood Count 4.80 X10*6/uL (4.60-5.80); White Blood Count 5.7 X10*3/uL (4.8-10.8)
[2025-01-26 08:18] LABS: Alanine Aminotransferase 24 U/L (0-40); Albumin Level 3.6 g/dL (3.5-5.0); Alkaline Phosphatase 57 U/L (39-117); Anion Gap 11 (12-20); Aspartate Amino Transferase 26 U/L (5-37); Blood Urea Nitrogen 41 mg/dL (9-16); Calcium 8.7 mg/dL (8.4-10.2); Carbon Dioxide 26 mmol/L (22-29); Chloride 109 mmol/L (96-108); Estimated Glomerular Filt Rate 47; Potassium 4.9 mmol/L (3.3-5.1); Sodium 141 mmol/L (135-145); Total Protein 5.8 g/dL (6.5-8.0)
== END 2025-01-26 06:51 | disposition home or self-care (01) ==
LOC: HO.HSH4E 06:50
PROVIDERS: Visit Provider Internal Medicine
DX: N18.9 Chronic kidney disease, unspecified (principal); D63.1 Anemia in chronic kidney disease
CPT/HCPCS: 36415; 80053; 85025

== ENCOUNTER 2025-02-10 06:40 | Outpatient (REF) | payer OTHER, SELFPAY ==
--- OUTSIDE RECORDS SUMMARY | 2025-02-10 06:43 | XMS_ITS | Clinical Summary ---
Author Organization [employer] Address 75 [facility] 7t [place] [address] Care Team Providers Care Woodworking Machinist Name Role Phone Unavailable Primary Care Provider [...] C) 500 MG ER capsule Active B Lgrlmnm-E-Odrir Acid ([place] Caps) 1 MG capsule Take 1 capsule [...] Apply topically if needed. Active nystatin (Mycostatin) 635982 UNIT/GM powder Apply topically 2 times daily. Active polyethylene glycol, PEG, 3350 (Miralax) 17 g packet Take by mouth. Act vitaly betamethasone, augmented, (Diprolene AF) 0.05 % cream Apply topically 2 times daily. Active Active Problems Problem Noted Date Diagnosed Date Severe obesity 07/28/2024 Atrial fibrillation 04/25/2011 Encounters Date Type Department Care Team Description 12/08/2024 8:00 AM EDT Office Visit [facility] [address] [place] [address] Betzy Desir 11/24/2024 8:45 AM EDT Office Visit [facility] [address] [place] [phone] Johnathan Amaya DMD from Last 3 Months [...] older (1 - 1-dose 75+ series) 2021 Dental X-Ray: Full Mouth 12/06/2024 022, 06/05/2018, 06/27/2017 Dental X-Ray: Bitewings 12/10/2024 12/10/19 24, 02/19/2023, 12/05/2021, Additional history exists COVID-19 Vaccine ( season) 2025 Influenza Vaccine (#1) 2025 Dental Oral Exam [...] Documents on File Type Date Recorded Patient Naphtha Washing System Operator Expl anation HealthCare Proxy 11/06/2023 11:01 AM Vandana feldertion on Invoke status per [facility] Advance Directives and Living Will 04/11/2023 Life Sustaining Treatment Power of Securities Lending Trader 04/11/2023 POA HealthCare Proxy 04/11/2023 Health Care Proxy Power of Securities Lending Trader 09/11/2022 5:40 PM Power of Securities Lending Trader 09/11/2022
--- OUTSIDE RECORDS SUMMARY | 2025-02-10 06:43 | XMS_ITS | Encounter Summary ---
Author Organization [email or web address] Address 75 [facility] 7t [place] [address] Care Team Providers Care Propagator Name Role Phone Unavailable Primary Care Provider Unavailabl e Encounter Details Date Type Department Care Team (Latest Contact Info) Description 06/09/2018 Abstract [facility] CONVERSIONS Dental, Provider, DDS Social History [...]
--- OUTSIDE RECORDS SUMMARY | 2025-02-10 06:43 | XMS_ITS | Encounter Summary ---
Author Organization [employer] Address [address] [place] [address] Care Team Providers Care Clinical Biochemist Name Role Phone Unavailable Primary Care Provider Unavailabl e Encounter Details Date Type Department Care Team (Late st Contact Info) Description 07/03/2023 Abstract [facility] [address] [place] [address] Johnathan Amaya, DMD 230 [place] [address] Social History Tobacco Use Types Packs/Day Years [...]
--- OUTSIDE RECORDS SUMMARY | 2025-02-10 06:43 | XMS_ITS | Encounter Summary ---
Author Organization [employer] Address 75 [facility] 7 [place] [address] Care Team Providers Care It Software Engineer Name Role Phone Unavailable Primary Care Provider Unavailabl e Encounter Details Date Type Department Care Team (Late st Contact Info) Description 05/09/2023 Abstract [facility] [address] [place] [address] Johnathan Amaya, DMD 230 [facility] [place] [address] Social History Tobacco Use Types Packs/Day Years [...]
--- OUTSIDE RECORDS SUMMARY | 2025-02-10 06:43 | XMS_ITS | Encounter Summary ---
Author Organization [employer] Address 75 [facility] 7 [place] [address] Care Team Providers Care Preventive Medicine Physician Name Role Phone Unavailable Primary Care Provider Unavailabl e Encounter Details Date Type Department Care Team (Latest Contact Info) Description 01/23/2022 Abstract [facility] CONVERSIONS Dental, Provider, DDS Social History [...]
--- OUTSIDE RECORDS SUMMARY | 2025-02-10 06:43 | XMS_ITS | Encounter Summary ---
Author Organization [employer] Address 75 [facility] 7 [place] [address] Care Team Providers Care Conveyor Man Name Role Phone Unavailable Primary Care Provider Unavailabl e Encounter Details Date Type Department Care Team (Late st Contact Info) Description 05/05/2023 Abstract [facility] D[facility] [address] [place] [address] Johnathan Amaya, DMD 230 [place] [address] Social History Tobacco Use Types Packs/Day Years [...]
[2025-02-10 07:03] LABS: Anion Gap 12 (12-20); Blood Urea Nitrogen 39 mg/dL (9-16); Calcium 8.8 mg/dL (8.4-10.2); Carbon Dioxide 27 mmol/L (22-29); Chloride 110 mmol/L (96-108); Estimated Glomerular Filt Rate 49; Potassium 4.6 mmol/L (3.3-5.1); Sodium 144 mmol/L (135-145)
== END 2025-02-10 06:41 | disposition home or self-care (01) ==
LOC: HO.HSH4E 06:40
PROVIDERS: Visit Provider Internal Medicine
DX: N18.30 Chronic kidney disease, stage 3 unspecified (principal)
CPT/HCPCS: 36415; 80048

== ENCOUNTER 2025-05-13 06:09 | Outpatient (REF) | payer MEDICARE, MEDICAID, SELFPAY ==
[2025-05-13 06:12] LABS: MANUAL DIFF FLAG NO
--- OUTSIDE RECORDS SUMMARY | 2025-05-13 06:12 | XMS_ITS | Encounter Summary ---
Author Organization [employer] [facility] Address 75 [facility] 7[address] [place] [address] Care Team Providers Care Psychologist Private Practice Name Role Phone Unavailable Primary Care Provider Unavailabl e Encounter Details Date Type Department Care Team (Late st Contact Info) Description 07/03/2023 Abstract [facility] [address] [place] [address] Johnathan Amaya, MICKIE [address] [place] [address] Social History Tobacco Use Types Packs/Day Years [...] Care Team (Late st Contact Info) Description 05/16/2025 8:00 AM EST Office Visit [facility] [address] [place] [address] Johnathan Amaya, DMD [address] [place] [address] 06/01/2025 8:15 AM EST Office Visit [facility] [address] [place] [address] Isabell Alvarado [address] [place] [address] documented as of this encounter Visit Diagnoses Not on filedocumented in this encounter
--- OUTSIDE RECORDS SUMMARY | 2025-05-13 06:12 | XMS_ITS | Clinical Summary ---
Author Organization [employer] Address 75 [facility] 7t [place] [address] Care Team Providers Care Booster Pump Oiler Name Role Phone Unavailable Primary Care Provider [...] C) 500 MG ER capsule Active B Pbdxrou-A-Scudb Acid (Dane Caps) 1 MG capsule Take [...] Apply topically if needed. Active nystatin (Mycostatin) 246769 UNIT/GM powder Apply topically 2 times daily. Active polyethylene glycol, PEG, 3350 (Miralax) 17 g packet Take by mouth. Act vitaly betamethasone, augmented, (Diprolene AF) 0.05 % cream Apply topically 2 times daily. Active Tirzepatide 5 MG/0.5ML solution auto-injector Inject 5 mg under the skin 1 (one) time per week. Active Edetate Disodium Dihydrate powder Act vitaly Coenzyme Q10 (Ubidecarenone) powder 200 mg Once per day. Active Active Problems Problem Noted Date Diagnosed Date Severe obesity (CMS/HCC) 07/28/2024 Atrial fibrillation (CMS/HCC) 04/25/2011 Encounters Date Type Department Care Team Description 03/30/2025 8:00 AM EST Office Visit [facility] [address] [place] [address] Johnathan Amaya DMD 03/09/2025 8:45 AM EDT Office Visit [facility] [address] [place] [address] Betzy Desir 02/16/2025 1:00 PM EDT Office Visit [facility] [address] [place] [address] Johnathan Amaya DMD from Last 3 Months [...] Description 05/16/2025 8:00 AM EST Office Visit [facility] [address] [place] [address] Johnathan Amaya DMD [address] [place] [address] 06/01/2025 8:15 AM EST Office Visit [facility] [address] [place] [address] Isabell Alvarado [address] [place] [address] Health Maintenance Due Date Last Done Comments Depression Screening 1946 Lipid Panel 1946 SDOH Screening 1946 Alcohol/Substance Use Screening 1958 Hepatitis C Screening 1964 COVID-19 Vaccine (3 - Pfizer risk series) 06/29/2020 06/01/2020, 05/11/2020 RSV Patients and Patients Aged 60 years or older (1 - 1-dose 75+ series) 2021 Dental X-Ray: Full Mouth 12/06/2024 022, 06/05/2018, 06/27/2017 Dental X-Ray: Bitewings 12/10/2024 12/10/19 24, 02/19/2023, 12/05/2021, Additional history exists Influenza Vaccine (#1) 2025 3, 02/23/2020, 02/12/2019, Additional history exists Dental Oral Exam 05/28/2025 11/24/2024, 09/2024, 12/10/2023, Additional history exists Dental Prophylaxis 09/08/2025 03/09/2025, 0 12/08/2024, 09/09/2024, Additional history exists Tobacco Screening 03/09/2026 03/09/2025 DTaP/Tdap/Td Vaccines (3 - Td or Tdap) 02/12/2029 02/12/2019, 05/26/2009, 05/26/2009 Zoster Vaccines Completed 03/17/2019, 08/24, 06/01/2012 Hepatitis A Vaccines Aged Out 01/17/2023, 06/30/2019, 05/13/2019 No longer eligible based on patient's age to complete this topic Hepatitis B Vaccines Completed 01/17/2023, 06/30/2019, 05/13/2019 Pneumococcal Vaccine: 50+ Years Completed 01/17/2023, 01/27/2015, 05/01/2012 HIB Vaccines Aged Out No longer eligi [...] Procedure Name Priority Date/Time Associated Diagnosis Comments NO CHARGE VISIT Routine 03/30/2025 8:00 AM EST ORAL HYGIENE INSTRUCTIONS Routine 2024 8:45 AM EDT PROPHYLAXIS - ADULT Routine 03/09/2025 8 :45 AM EDT TOPICAL APPLICATION OF FLUORIDE VARNISH Routine 03/09/2025 8:45 AM EDT CASE PRESENTATION, DETAILED AND EXTENSIVE TREATMENT PLANNING Routine 02/16/2025 1:00 PM EDT INTRAORAL - PERIAPICAL FIRST RADIOGRAPHIC IMAGE Routine 02/16/2025 1:00 PM EDT PALLIATIVE (EMERGENCY) TREATMENT OF DENTAL PAIN - MINOR PROCEDURE Routine 02/16/2025 1:00 PM EDT PERIODIC ORAL EVALUATION - ESTABLISHED PATIENT Routine 11/24/2024 8:45 AM EDT BITEWINGS - 4 RADIOGRAPHIC IMAGES Routine 12/10/2023 8:00 AM EDT INTRAORAL - COMPLETE SERIES OF RADIOGRAPHIC IMAGES Routine 12/05/2021 12:00 AM EDT from Last 3 Months or Most Recently Relevant to Health Maintenance Insurance DENTAL-[facility] MEDICAID STAND ADULT Advance Directives Documents on File Type Date Recorded Patient Rotating Equipment Specialist Expl anation HealthCare Proxy 11/06/2023 11:01 AM Vandana fiction on Invoke status per [facility] Advance Directives and Living Will 04/11/2023 Life Sustaining Treatment Power of Licensed Practical Nurse 04/11/2023 POA HealthCare Proxy 04/11/2023 Health Care Proxy Power of Licensed Practical Nurse 09/11/2022 5:40 PM Power of Licensed Practical Nurse 09/11/2022
--- OUTSIDE RECORDS SUMMARY | 2025-05-13 06:12 | XMS_ITS | Encounter Summary ---
Author Organization [employer] [facility] Address 75 [facility] 7t [place] [address] Care Team Providers Care Commercial Sheet Metal Foreman Name Role Phone Unavailable Primary Care Provider Unavailabl e Encounter Details Date Type Department Care Team (Late st Contact Info) Description 05/09/2023 Abstract [facility] D[facility] [address] [place] [address] Johnathan Amaya, MICKIE [address] [place] [address] Social History Tobacco Use Types Packs/Day Years [...] Description 05/16/2025 8:00 AM EST Office Visit [facility] [address] [place] [address] Johnathan Amaya, DMD [address] [place] [address] 06/01/2025 8:15 AM EST Office Visit [facility] [address] [place] [address] Isabell Alvarado [address] [place] [address] documented as of this encounter Visit Diagnoses Not on filedocumented in this encounter
--- OUTSIDE RECORDS SUMMARY | 2025-05-13 06:12 | XMS_ITS | Encounter Summary ---
Author Organization [employer] [facility] Address 75 [facility] 7 [place] [address] Care Team Providers Care Power Transformer Inspector Name Role Phone Unavailable Primary Care Provider Unavailabl e Encounter Details Date Type Department Care Team (Latest Contact Info) Description 01/23/2022 Abstract [facility] CONVERSIONS Dental, Provider, DDS Social History [...] Description 05/16/2025 8:00 AM EST Office Visit [facility] [address] [place] [address] Johnathan Amaya DMD [address] [place] [address] 06/01/2025 8:15 AM EST Office Visit [facility] [address] [place] [address] Isabell Alvarado [address] [place] [address] documented as of this encounter Visit Diagnoses Not on filedocumented in this encounter
--- OUTSIDE RECORDS SUMMARY | 2025-05-13 06:12 | XMS_ITS | Encounter Summary ---
Author Organization [employer] [facility] Address [address] [facility] 7[address] [place] [address] Care Team Providers Care Formulator Name Role Phone Unavailable Primary Care Provider Unavailabl e Encounter Details Date Type Department Care Team (Late st Contact Info) Description 05/05/2023 Abstract [facility] [address] [place] [address] Johnathan Amaya, MICKIE [address] [place] [address] Social History Tobacco Use Types Packs/Day Years [...] Description 05/16/2025 8:00 AM EST Office Visit [facility] [address] [place] [address] Johnathan Amaya, DMD [address] [place] [address] 06/01/2025 8:15 AM EST Office Visit [facility] [address] [place] [address] Isabell Alvarado [address] [place] [address] documented as of this encounter Visit Diagnoses Not on filedocumented in this encounter
--- OUTSIDE RECORDS SUMMARY | 2025-05-13 06:12 | XMS_ITS | Encounter Summary ---
Author Organization [employer] [facility] Address [address] [place] [address] 7 [place] [address] Care Team Providers Care Chemical Treatment Plant Technician Name Role Phone Unavailable Primary Care Provider Unavailabl e Encounter Details Date Type Department Care Team (Latest Contact Info) Description 06/09/2018 Abstract [facility] CONVERSIONS Dental, Provider, DDS Social History [...] Description 05/16/2025 8:00 AM EST Office Visit [facility] [address] [place] [address] Johnathan Amaya DMD [address] [place] [address] 06/01/2025 8:15 AM EST Office Visit [facility] [address] [place] [address] Isabell Alvarado [address] [place] [address] documented as of this encounter Visit Diagnoses Not on filedocumented in this encounter
[2025-05-13 06:32] LABS: Hematocrit 44.2 % (42.0-52.0); Hemoglobin 14.4 g/dl (14.0-18.0); Imm Gran Abs Auto 0.02 X10*3/uL (0.00-0.03); Imm Gran Pct Auto 0.3 % (0.0-0.4); Lymphocytes Absolute Auto 1.5 X10*3/uL (1.2-4.9); Mean Corpuscular HGB Conc 32.6 g/dl (31.0-36.0); Mean Corpuscular Hemoglobin 29.6 pg (27.0-33.0); Mean Corpuscular Volume 90.8 fL (80.0-98.0); NRBC Abs Auto 0.000 X10*3/uL (0.0-0.012); NRBC Pct Auto 0.0 /100WBC (0.0-0.2); Platelet Count 150 X10*3/uL (160-400); Red Blood Count 4.87 X10*6/uL (4.60-5.80); White Blood Count 6.3 X10*3/uL (4.8-10.8)
[2025-05-13 06:55] LABS: Anion Gap 10 (12-20); Blood Urea Nitrogen 33 mg/dL (9-16); Calcium 9.1 mg/dL (8.4-10.2); Carbon Dioxide 30 mmol/L (22-29); Chloride 104 mmol/L (96-108); Cholesterol 165 mg/dL (<200); Estimated Glomerular Filt Rate 53; HDL Cholesterol 29 mg/dL (>40); Iron 80 mcg/dL (45-160); Percent Iron Saturation 31 % (15-50); Potassium 4.7 mmol/L (3.3-5.1); Sodium 139 mmol/L (135-145); Total Iron Binding Capacity 259 mcg/dL (228-428); Triglycerides 96 mg/dL (<150); Unsaturated Iron Binding 179 ug/dL
[2025-05-13 07:08] LABS: Ferritin 188 ng/mL (20-250)
== END 2025-05-13 06:10 | disposition home or self-care (01) ==
LOC: HO.HSH4E 06:09
PROVIDERS: Visit Provider Internal Medicine
DX: D64.9 Anemia, unspecified (principal); N18.30 Chronic kidney disease, stage 3 unspecified; Z13.0 Encounter for screening for diseases of the blood and blood-forming organs and certain disorders involving the immune mechanism
CPT/HCPCS: 36415; 80048; 80061; 82728; 83540; 85025

== ENCOUNTER 2025-05-19 07:12 | Observation (INO) | payer OTHER, SELFPAY ==
--- OUTSIDE RECORDS SUMMARY | 2025-05-16 08:00 | XMS_ITS | Encounter Summary ---
Author Organization [employer] Address [address] [facility] 7 [place] [address] Care Team Providers Care Furnace Feeder Name Role Phone Unavailable Primary Care Provider Unavailabl e Reason for Visit * Reason Comments Dental Exam Encounter Details Date Type Department Care Team (Late st Contact Info) Description 05/16/2025 8:00 AM EST Office Visit [facility] [address] [place] [address] Johnathan Amaya, DMD [address], [place] [phone] Social History Tobacco Use Types Packs/Day Years Used Date Smoking Tobacco: Unknown Sex and Gender Information Value Date Recorded Sex Assigned at Male 03/25/2022 10:24 AM EDT Legal Sex Male 10:24 AM EDT Gender Identity Male 03/25/2022 10:24 AM EDT Sexual Orientation Straight 03/25/2022 10 :24 AM EDT documented as of this encounter Progress Notes * Johnathan Amaya DMD - 05/16/2025 8:00 AM EST C/C: dental exam I.O.E: severe broken teeth and root remnants #6,14,29,30, erythematous and edematous gingiva, gen plaque accumulation, gingival recession teeth, gen periodontal bone loss E.O.E: NSF OCS: NSF Head and neck: NSF Radiographic: gen moderate periodontal bone loss, root remnants #6,14,29,30 with large caries, multiple existing restorations Diagnosis: gen chronic moderate periodontitis, root remnants #6,14,29,30 with large caries Treatment: prophy, recall exam, exo#6,14,29,30 with O.S. Pt still need time to think about the proposed treatment plan Pt is verbal, seems to be responsive and able to make the decision himself Teeth is being cleaned with toothbrush and toothpaste, Varnish is being applied Shadi documented in this encounter Plan of Treatment Upcoming Encounters Date Type Department Care Team (Late st Contact Info) Description 06/01/2025 8:15 AM EST Office Visit [facility] [address], [place] [phone] Isabell Alvarado [address], [place] [phone] documented as of this encounter Procedures Procedure Name Priority Date/Time Associated Diagnosis Comments Full TOPICAL APPLICATION OF FLUORIDE VARNISH Routine 05/16/2025 8:00 AM EST PERIODIC ORAL EVALUATION - ESTABLISHED PATIENT Routine 05/16/2025 8:00 AM EST documented in this encounter Visit Diagnoses Not on filedocumented in this encounter
[2025-05-19] VITALS (17 sets, daily range): BP systolic 125–174; BP diastolic 68–100; PULSE 59–80; RESP 18–30; TEMP 36.8–37.1; O2SAT 3–97; BMI 52.8
--- NOTE | ~2025-05-19 | XR_ITS ---
CLINICAL HISTORY: SOB 1 view chest x-ray Comparison: 10/23/2024 Findings: Hazy right mid/lower lung atelectasis/infiltrate. No significant change in cardiomediastinal silhouette. Questionable pulmonary vascular congestion. Correlate clinically. Left distal clavicle resection. Severe bilateral glenohumeral osteoarthritis. IMPRESSION: 1. Questionable pulmonary vascular congestion. Correlate clinically. 2. Hazy right mid/lower lung atelectasis/infiltrate. This document has been electronically signed by: Lady Shea MD on 05/19/2025 09:34:30
--- NOTE | 2025-05-19 07:47 | ECG_ITS ---
Test Reason : SOB Blood Pressure : */* mmHG Vent. Rate : 64 BPM Atrial Rate : * BPM P-R Int : * ms QRS Dur : 132 ms QT Int : 428 ms P-R-T Axes : * -57 0 degrees QTcB Int : 441 ms Atrial fibrillation Right bundle branch block Left anterior fascicular block Bifascicular block Minimal voltage criteria for LVH, may be normal variant ( R in aVL ) Abnormal ECG When compared with ECG of 23-Oct-2024 03:38, No significant changes seen Referred By: Evin Nino Electronically Signed By: TIFFANIE PEDROZA MD
--- NOTE | 2025-05-19 07:47 | ED.GENADULT ---
HPI - General Adult General Chief complaint: General Medical Stated complaint: SOB Time Seen by Provider: 05/19/25 07:46 Source: patient, EMS and old records reviewed Mode of arrival: EMS Limitations: no limitations History of Present Illness ED Provider: DR. Nino HPI narrative: 79-year-old [facility] resident with history of B-cell lymphoma, chronic AFib, COPD, stage III CKD, osteoarthritis brought in by ambulance for evaluation of shortness of breath found to be hypoxic in the mid 70 at the facility, patient with known history of sleep apnea require CPAP at nighttime that patient not compliant with using CPAP regularly. patient needed 3 L of nasal cannula for transportation. No fever, no chills, no cough, +bilateral lower extremity edema, on arrival patient in mild respiratory distress, CPAP was Discontinued, and was placed on 3 L of nasal cannula. Related Data Home Medications ?Medication ?Instructions ?Recorded ?Confirmed acetaminophen 325 mg tablet 650 mg PO BEDTIME 02/11/22 05/19/25 acetaminophen 325 mg tablet 650 mg PO Q6H PRN Pain, Mild (Pain 02/11/22 05/19/25 Scale 1-3)/FEVER aloe vera 5,000 mg capsule 20,000 mg PO DAILY@0600 02/11/22 05/19/25 ascorbic acid (vitamin C) 250 mg 500 mg PO DAILY@59902/11/22 05/19/25 tablet (Vitamin C) coenzyme Q10 200 mg capsule 200 mg PO DAILY@59902/11/22 05/19/25 omega 5-mmm-joi-fish oil 1,200 mg 2 cap PO DAILY@59902/11/22 05/19/25 (144 mg-216 mg) capsule (Fish Oil) vitamin E (dl, acetate) 180 mg 180 mg PO DAILY@59902/11/22 05/19/25 (400 unit) capsule ipratropium 0.5 mg-albuterol 3 mg 3 ml inhalation Q4H PRN Wheezing 06/03/22 05/19/25 (2.5 mg base)/3 mL nebulization soln Previous Rx's ?Medication ?Instructions ?Recorded metoprolol succinate 100 mg 100 mg PO DAILY@0600 #30 tabs 06/05/20 tablet,extended release 24 hr furosemide 20 mg tablet (Lasix) 20 mg PO DAILY 30 days #30 tabs 05/22/25 levofloxacin 750 mg tablet 750 mg PO Q24H 5 days #5 tabs 05/22/25 prednisone 20 mg tablet 60 mg (3 x 20 mg) PO DAILY #20 tabs 05/22/25 Allergies Allergy/AdvReac Type Severity Reaction Status Date / Time cephalexin (From KEFLEX) Allergy Unknown UNKNOWN Verified 05/19/25 07:23 meropenem (MEROPENEM) Allergy Unknown UNKNOWN Verified 05/19/25 07:23 Penicillins (PENICILLINS) Allergy Unknown UNKNOWN Verified 05/19/25 07:23 sulfamethoxazole (From Allergy Unknown UNKNOWN Verified 05/19/25 07:23 BACTRIM) trimethoprim (From BACTRIM) Allergy Unknown UNKNOWN Verified 05/19/25 07:23 Review of Systems Review of Systems: All other systems are reviewed and are negative Constitutional: Reports as per HPI and Reports no additional constitutional complaints Eyes: Reports as per HPI and Reports no additional eye complaints Reports system reviewed and no additional complaints, except as documented Cardiovascular: Reports as per HPI and Reports no additional cardiovascular complaints Respiratory: Reports as per HPI and Reports no additional respiratory complaints Gastrointestinal: Reports as per HPI and Reports no additional gastrointestinal complaints Genitourinary: Reports no additional female genitourinary complaints Musculoskeletal: Reports no additional musculoskeletal complaints Skin/Breast: Reports system reviewed and no additional complaints, except as docu Psychiatric: Reports no additional psychiatric complaints Endocrine: Reports no additional endocrine complaints Hematologic/Lymphatic: Reports no additional hematologic/lymphatic complaints Allergic/Immunologic: Reports no additional allergic/immunologic complaints Reports system reviewed and no additional complaints, except as documented and Reports Abnormal speech present [facility] Past Medical History Medical History (Updated 05/19/25 @ 19:01 by Trisha Rodriguez RN) COPD (chronic obstructive pulmonary disease) 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, bilateral legs Hammer toes of both feet Stage 3 chronic kidney disease Mild cognitive impairment Osteoarthritis Hearing loss Chronic a-fib Morbid obesity Anemia, unspecified B-cell lymphoma Surgical History No pertinent past surgical history Family History Family History Other No family history of coronary artery disease Social History Social History Household Members: Other Housing: Other Housing Other:: [facility] Do you presently have visiting nurse or other home services: No Alcohol intake: never Comment: pt in overflow Patient Tobacco Use Status: Former Tobacco user Tobacco use type: Cigarette Second Hand Smoke Exposure: No Advance Directives Date on File: 06/04/22 service: Yes Current occupational status: retired Physical Exam ED Vital Signs: Vital Signs - 24 hr 05/19/25 07:22 05/19/25 09:31 Temperature 98.5 F Pulse Rate 72 Respiratory Rate 18 30 H Blood Pressure 132/71 Pulse Oximetry 3 L Oxygen Delivery Method Nasal Cannula BMI result Body Mass Index 52.8 Vital signs have been reviewed and appear to be correct. Blood pressure elevated. Heart rate normal. Respiratory rate normal. Temperature normal. Oxygen saturation normal. Appearance: Alert. Oriented X3. No acute distress. Head: Normal external exam. Normocephalic. Atraumatic. No Watson signs noted. No raccoon eyes noted Eyes: PERRLA. EOMI. Conjunctiva and sclera normal. Eyelids normal. ENT: TM's Normal. Pharynx normal. Uvula midline. Moist mucous membranes. No trismus noted. No drooling noted. No muffled voice noted. Neck: Normal inspection. Neck supple. FROM. No adenopathy. Thyroid Normal. No meningeal signs. No neck mass noted. CVS: Normal heart rate and rhythm. Heart sound normal. No murmurs noted. Pulses normal throughout. Respiratory: No respiratory distress. Painless inspiration. Breath sounds normal. Mild diffuse expiratory wheezing with prolonged expiration, mild bilateral basilar rales, decreased air entry bilaterally. Abdomen: Soft and nontender. Bowel sounds normal in all 4 quadrants. No distention noted. No organomegaly noted. No visible injury noted. Back: No CVA tenderness. Full range of motion noted. Skin: Skin warm and dry. Normal skin color. Normal skin turgor. No rashes/lesions/lacerations noted. Extremities: +4 Bilateral lower extremity pitting edema. Extremities exhibit normal range of motion. Extremities nontender. Neuro: Oriented X 3. Cranial nerve exam: II-XII are grossly intact No motor deficit. No sensory deficit. Reflexes normal. Course Reevaluation(s) Reevaluation #1: I was called into the room because patient is hypoxic 75%, patient is half asleep, easily arousable, patient was placed on CPAP, with improvement of O2 sat. Will continue monitoring. Time: 09:40 Reevaluation #2: 1. Combination of COPD, obstructive sleep apnea, hypoventilation, and mild CHF causing patient's hypoxia. 2. Patient normally use CPAP PRN for obstructive sleep apnea patient was placed on CPAP in the ED secondary to his underlying lung condition the patient do not have infection or sepsis however patient initially received 1 dose of empirical doxycycline. 3. Admit the patient for O2 monitoring. Time: 10:15 Reevaluation #3: Patient became more lethargic, repeat ABG reveals more respiratory acidosis patient was placed on BiPAP, patient came in accompanied by MOLST form confirmed DNR/DNI. Will continue BiPAP repeat ABG in 2 hours. I spoke with the sister Madyson Bates [phone] who also a healthcare proxy, who advised to honor patient wishes and continue with a DNR/ DNI request and continue with noninvasive BiPAP only. Therefore patient is okay to be admitted to the medical floor on BiPAP. Time: 12:15 Medications Administered Discontinued Medications Generic Name Dose Route Start Last Admin Trade Name Freq PRN Reason Stop Dose Admin Albuterol Sulfate 2.5 mg 05/19/25 12:00 05/22/25 11:37 Albuterol Sulfate (0.083%) 2.5 Mg/3 Ml Vial.Neb INHALE Not Given RQ4H WHILE AWAKE [facility] Albuterol Sulfate 7.5 mg/ 0 mg 05/19/25 07:42 05/19/25 07:55 Albuterol/Ipratropium 3 ml INHALE 05/19/25 07:43 10 each ONCE ONE Administration Furosemide 40 mg 05/19/25 09:42 05/19/25 10:03 Furosemide 40 Mg/4 Ml Vial IVPUSH 05/19/25 09:43 40 mg STAT STA Administration Protocol Furosemide 20 mg 05/19/25 18:00 05/22/25 08:30 Furosemide 20 Mg/2 Ml Vial IVPUSH 20 mg BID@0900,1800 [facility] Administration Protocol Magnesium Sulfate 2 gm in 50 mls @ 150 mls/hr 05/19/25 07:47 05/19/25 10:24 Magnesium Sulfate/H2o IV 05/19/25 08:06 Infused ONCE ONE Infusion Doxycycline Hyclate 100 mg/ 250 mls @ 166.67 mls/hr 05/19/25 09:42 05/19/25 12:23 Sodium Chloride IV 05/19/25 11:11 Infused ONCE ONE Infusion Doxycycline Hyclate 100 mg/ 250 mls @ 166.67 mls/hr 05/19/25 21:00 05/22/25 08:59 Sodium Chloride IV Infused Q12H DANISHA Infusion Levofloxacin 750 mg 05/22/25 09:00 05/22/25 09:39 Levofloxacin 750 Mg Tablet PO 750 mg Q24H DANISHA Administration Magnesium Hydroxide 30 ml 05/19/25 09:57 05/21/25 20:15 Milk Of Magnesia 30 Ml Oral.Susp PO 30 ml DAILY PRN Administration Constipation Methylprednisolone Sodium Succinate 125 mg 05/19/25 07:47 05/19/25 08:30 Methylprednisolone Sod Succ 125 Mg/2 Ml Vial IVPUSH 05/19/25 07:48 125 mg ONCE ONE Administration Methylprednisolone Sodium Succinate 40 mg 05/19/25 21:00 05/22/25 08:31 Methylprednisolone Sod Succ 40 Mg/Ml Vial IVPUSH 40 mg Q12H DANISHA Administration Metoprolol Succinate 100 mg 05/20/25 06:00 05/22/25 05:58 Metoprolol Succinate Er 100 Mg Tab.Er.24h PO 100 mg DAILY@0600 DANISHA Administration Protocol Sodium Chloride 3 ml 05/19/25 16:00 05/22/25 08:31 0.9 % Sodium Chloride Flush 3 Ml Syringe IVFLUSH 3 ml QSHIFT DANISHA Administration Medical Decision Making Differential Diagnosis Differential Diagnoses: The differential diagnosis associated with the presentation includes ( ACS, CHF, COPD exacerbation, pneumonia, pneumothorax, pleural effusion, electrolyte derangement, severe anemia.) Admission/Observation Consideration of admission/observation: Escalation of care including admission/observation considered Consult Healthcare Provider Management of the patient was discussed with: Hospitalist ( Steph Yañez) Lab Data MDM Lab Attestation statement: I reviewed the patient's lab results. 05/20/25 06:04 05/20/25 06:04 Labs: Lab Results 05/19/25 05/19/25 05/19/25 Range/Units 08:04 08:05 08:14 WBC 7.3 (4.8-10.8) X10*3/uL RBC 5.40 (4.60-5.80) X10*6/uL Hgb 16.1 (14.0-18.0) g/dl Hct 50.7 (42.0-52.0) % MCV 93.9 (80.0-98.0) fL MCH 29.8 (27.0-33.0) pg MCHC 31.8 (31.0-36.0) g/dl RDW 13.9 (11.0-16.0) % Plt Count 144 L (160-400) X10*3/uL MPV 9.4 (9.4-12.4) fL Immature Gran % (Auto) 0.4 (0.0-0.4) % Neut % (Auto) 67.4 (45-73) % Lymph % (Auto) 18.0 L (20-40) % [place] % (Auto) 8.9 (2-11) % Eos % (Auto) 4.8 H (0-4) % Baso % (Auto) 0.5 (0-2) % Lymph # (Auto) 1.3 (1.2-4.9) X10*3/uL [place] # (Auto) 0.7 (0.1-1.2) X10*3/uL Eos # (Auto) 0.4 (0.0-0.4) X10*3/uL Baso # (Auto) 0.0 (0.0-0.2) X10*3/uL Abs Immat Gran (auto) 0.03 (0.00-0.03) X10*3/uL Absolute Neuts (auto) 4.9 (2.0-8.3) x10*3/uL Absolute Nucleated RBC 0.000 (0.0-0.012) X10*3/uL Nucleated RBC % (auto) 0.0 (0.0-0.2) /100WBC VBG pH 7.28 L (7.32-7.43) VBG pCO2 52 mmHg VBG pO2 48 mmHg VBG HCO3 25 (22-26) mmol/L VBG O2 Saturation 78.0 % VBG Base Excess -2.0 mmol/L Sodium (135-145) mmol/L Potassium (3.3-5.1) mmol/L Chloride (96-108) mmol/L Carbon Dioxide (22-29) mmol/L Anion Gap (12-20) BUN (9-16) mg/dL Creatinine (0.5-1.4) mg/dL Estim Creat Clear Calc Estimated GFR Random Glucose (60-115) mg/dL Lactic Acid 1.1 (0.5-2.0) mmol/L Calcium (8.4-10.2) mg/dL Total Bilirubin (0.0-1.0) mg/dL Direct Bilirubin (0.0-0.5) mg/dL AST (5-37) U/L ALT (0-40) U/L Alkaline Phosphatase (39-117) U/L Troponin I High Sens (<3.5-35.0) ng/L Total Protein (6.5-8.0) g/dL Albumin (3.5-5.0) g/dL Lipase (8-78) U/L Influenza Type A (PCR) NEGATIVE (Negative) Influenza Type B (PCR) NEGATIVE (Negative) RSV RNA Qual (PCR) NEGATIVE (Negative) SARS-CoV-2 RNA (RT-PCR) NEGATIVE (Negative) 05/19/25 Range/Units 08:43 WBC (4.8-10.8) X10*3/uL RBC (4.60-5.80) X10*6/uL Hgb (14.0-18.0) g/dl Hct (42.0-52.0) % MCV (80.0-98.0) fL MCH (27.0-33.0) pg MCHC (31.0-36.0) g/dl RDW (11.0-16.0) % Plt Count (160-400) X10*3/uL MPV (9.4-12.4) fL Immature Gran % (Auto) (0.0-0.4) % Neut % (Auto) (45-73) % Lymph % (Auto) (20-40) % [place] % (Auto) (2-11) % Eos % (Auto) (0-4) % Baso % (Auto) (0-2) % Lymph # (Auto) (1.2-4.9) X10*3/uL [place] # (Auto) (0.1-1.2) X10*3/uL Eos # (Auto) (0.0-0.4) X10*3/uL Baso # (Auto) (0.0-0.2) X10*3/uL Abs Immat Gran (auto) (0.00-0.03) X10*3/uL Absolute Neuts (auto) (2.0-8.3) x10*3/uL Absolute Nucleated RBC (0.0-0.012) X10*3/uL Nucleated RBC % (auto) (0.0-0.2) /100WBC VBG pH (7.32-7.43) VBG pCO2 mmHg VBG pO2 mmHg VBG HCO3 (22-26) mmol/L VBG O2 Saturation % VBG Base Excess mmol/L Sodium 139 (135-145) mmol/L Potassium 5.0 (3.3-5.1) mmol/L Chloride 105 (96-108) mmol/L Carbon Dioxide 25 (22-29) mmol/L Anion Gap 14 (12-20) BUN 34 H (9-16) mg/dL Creatinine 1.29 (0.5-1.4) mg/dL Estim Creat Clear Calc 80.4 Estimated GFR 54 Random Glucose 106 (60-115) mg/dL Lactic Acid (0.5-2.0) mmol/L Calcium 9.3 (8.4-10.2) mg/dL Total Bilirubin 0.5 (0.0-1.0) mg/dL Direct Bilirubin 0.2 (0.0-0.5) mg/dL AST 43 H (5-37) U/L ALT 35 (0-40) U/L Alkaline Phosphatase 79 (39-117) U/L Troponin I High Sens 29.0 (<3.5-35.0) ng/L Total Protein 6.7 (6.5-8.0) g/dL Albumin 3.8 (3.5-5.0) g/dL Lipase 16 (8-78) U/L Influenza Type A (PCR) (Negative) Influenza Type B (PCR) (Negative) RSV RNA Qual (PCR) (Negative) SARS-CoV-2 RNA (RT-PCR) (Negative) Independent Interpretation I performed an independent interpretation of an: Plain X-Ray ( chest:1. Questionable pulmonary vascular congestion. Correlate clinically. 2. Hazy right mid/lower lung atelectasis/infiltrate.) Radiology Impression Discussion of test interpretation with radiology: I have reviewed the radiologist's reading. Chronic Conditions Patient?s care impacted by: Other ( Obstructive sleep apnea, CHF) Critical Care Time Critical Care Time Critical Care Time: Yes Total Critical Care Time: 60 Attestation: The patient was critically ill with a high probability of imminent or life-threatening deterioration. I spent greater than 30 minutes of discontinuous time evaluating the patient, delivering critical care at the bedside, discussing evaluating data with consultants. Critical care time does not include time spent performing separately billable procedures or teaching. Time spent performing critical care was 60 minutes. Discharge Plan Discharge Clinical Impression: Morbid obesity Patient Disposition: Admitted As Inpatient Interventions: Admission Worksheet (ED) Last Done: 05/19/25 17:26 Discharge Date/Time: 05/19/25 19:01
[2025-05-19] MEDS: Albuterol Sulfate 7.5 MG, Albuterol/Iprat 2.5/0.5MG 3 ML 3 ML INHALE (07:55)
[2025-05-19 08:11] LABS: MANUAL DIFF FLAG NO
[2025-05-19 08:15] LABS: Hematocrit 50.7 % (42.0-52.0); Hemoglobin 16.1 g/dl (14.0-18.0); Imm Gran Abs Auto 0.03 X10*3/uL (0.00-0.03); Imm Gran Pct Auto 0.4 % (0.0-0.4); Lymphocytes Absolute Auto 1.3 X10*3/uL (1.2-4.9); Mean Corpuscular HGB Conc 31.8 g/dl (31.0-36.0); Mean Corpuscular Hemoglobin 29.8 pg (27.0-33.0); Mean Corpuscular Volume 93.9 fL (80.0-98.0); NRBC Abs Auto 0.000 X10*3/uL (0.0-0.012); NRBC Pct Auto 0.0 /100WBC (0.0-0.2); Platelet Count 144 X10*3/uL (160-400); Red Blood Count 5.40 X10*6/uL (4.60-5.80); White Blood Count 7.3 X10*3/uL (4.8-10.8)
--- OUTSIDE RECORDS SUMMARY | 2025-05-19 08:15 | XMS_ITS | Encounter Summary ---
Author Organization [facility] Address [address] [facility] [address] [place] [address] Care Team Providers Care Track Watchman Name Role Phone Unavailable Primary Care Provider Unavailabl e Encounter Details Date Type Department Care Team (Late st Contact Info) Description 07/03/2023 Abstract [facility] [address] [place] [address] Johnathan Amaya DMD [address] [place] [address] Social History Tobacco Use Types Packs/Day Years [...] Description 06/01/2025 8:15 AM EST Office Visit [facility] [address] [place] [address] Isabell Alvarado [address] [place] [address] documented as of this encounter Visit Diagnoses Not on filedocumented in this encounter
--- OUTSIDE RECORDS SUMMARY | 2025-05-19 08:15 | XMS_ITS | Clinical Summary ---
Author Organization [employer] Address [address] [facility] 7t [place] [address] Care Team Providers Care Crossing Tender Name Role Phone Unavailable Primary Care Provider [...] C) 500 MG ER capsule Active B Wiwhkjw-S-Geyxp Acid (Dane Caps) 1 MG capsule Take [...] Apply topically if needed. Active nystatin (Mycostatin) 943711 UNIT/GM powder Apply topically 2 times daily. [...] Encounters Date Type Department Care Team Description 05/16/2025 8:00 AM EST Office Visit [facility] [address] [place] [address] Johnathan Amaya DMD 03/30/2025 8:00 AM EST Office Visit [facility] [address] [place] [address] Johnathan Amaya, DMD 03/09/2025 8:45 AM EDT Office Visit [facility] [address] [place] [address] Betzy Desir from Last 3 Months Social History Tobacco [...] Description 06/01/2025 8:15 AM EST Office Visit [address] [address] Isabell Alvarado [address] [place] [address] Health Maintenance Due Date Last Done Comments [...] Additional history exists Influenza Vaccine (#1) 2025 , 02/23/2020, 02/12/2019, Additional history exists Dental Prophylaxis 09/08/2025 03/09/2025, 0 12/08/2024, 09/09/2024, Additional history exists Dental Oral Exam 11/15/2025 05/16/2025, 06/2024, 07/28/2024, Additional history exists Tobacco Screening 05/16/2026 05/16/2025 DTaP/Tdap/Td Vaccines (3 - Td or Tdap) [...] ESTABLISHED PATIENT Routine 05/16/2025 8:00 AM EST NO CHARGE VISIT Routine 03/30/2025 8:00 AM EST ORAL HYGIENE INSTRUCTIONS Routine 2024 8:45 AM EDT PROPHYLAXIS - ADULT Routine 03/09/2025 8 :45 AM EDT TOPICAL APPLICATION OF FLUORIDE VARNISH Routine 03/09/2025 8:45 AM EDT BITEWINGS - 4 RADIOGRAPHIC IMAGES Routine 12/10/2023 8:00 AM EDT INTRAORAL - COMPLETE SERIES OF RADIOGRAPHIC IMAGES Routine 12/05/2021 12:00 AM EDT from Last 3 Months or Most Recently Relevant to Health Maintenance Insurance [facility] AD[place] Advance Directives Documents on File Type Date Recorded 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
--- OUTSIDE RECORDS SUMMARY | 2025-05-19 08:15 | XMS_ITS | Encounter Summary ---
Author Organization [facility] Address [address] [facility] [address] [place] [address] Care Team Providers Care Wet Washer Machine Name Role Phone Unavailable Primary Care Provider Unavailabl e Encounter Details Date Type Department Care Team (Late st Contact Info) Description 05/09/2023 Abstract [facility] [address] [place] [address] Johnathan Amaya DMD [address] [place] [address] Social History Tobacco Use Types Packs/Day Years [...] Description 06/01/2025 8:15 AM EST Office Visit [facility] [address] [place] [address] Isabell Alvarado [address] [place] [address] documented as of this encounter Visit Diagnoses Not on filedocumented in this encounter
--- OUTSIDE RECORDS SUMMARY | 2025-05-19 08:15 | XMS_ITS | Encounter Summary ---
Author Organization [employer] [facility] Address [address] [facility] [address] [place] [address] Care Team Providers Care Upper Extremity Surgeon Name Role Phone Unavailable Primary Care Provider Unavailabl e Encounter Details Date Type Department Care Team (Late st Contact Info) Description 05/05/2023 Abstract [facility] [address] [place] [address] Johnathan Amaya DMD [address] [place] [address] Social History Tobacco Use Types Packs/Day Years [...] Description 06/01/2025 8:15 AM EST Office Visit [facility] [address] [place] [address] Isabell Alvarado [address] [place] [address] documented as of this encounter Visit Diagnoses Not on filedocumented in this encounter
--- OUTSIDE RECORDS SUMMARY | 2025-05-19 08:16 | XMS_ITS | Encounter Summary ---
Author Organization [employer] [facility] Address [address] [facility] [address] [place] [phone] Care Team Providers Care Cleaning Crew Member Name Role Phone Unavailable Primary Care Provider Unavailabl e Encounter Details Date Type Department Care Team (Latest Contact Info) Description 06/09/2018 Abstract [facility] Dental, Provider, DDS Social History [...] Description 06/01/2025 8:15 AM EST Office Visit [facility] [address] [place] [address] Isabell Alvarado [address] [place], [place] [phone] documented as of this encounter Visit Diagnoses Not on filedocumented in this encounter
--- OUTSIDE RECORDS SUMMARY | 2025-05-19 08:16 | XMS_ITS | Encounter Summary ---
Author Organization [employer] [facility] Address [address] [facility] [address] [place] [phone] Care Team Providers Care Industrial Technology Education Teacher Name Role Phone Unavailable Primary Care Provider Unavailabl e Encounter Details Date Type Department Care Team (Latest Contact Info) Description 01/23/2022 Abstract [facility] Dental, Provider, DDS Social History [...] Description 06/01/2025 8:15 AM EST Office Visit [facility] [address] [place], [place] [phone] Isabell Alvarado [address] [place], [place] [phone] documented as of this encounter Visit Diagnoses Not on filedocumented in this encounter
[2025-05-19 08:26] LABS: VBG HCO3 25 mmol/L (22-26); VBG O2 % Saturation 78.0 %
[2025-05-19 08:28] LABS: Venous Blood Gas Refer to POC result
[2025-05-19] MEDS: Magnesium Sulfate/H2O 2 GM/50 ML PIGGYBACK IV (08:30)
[2025-05-19 09:01] LABS: Resp Syncy Virus RNA Qual PCR NEGATIVE (Negative); SARS COV2 PCR INHOUSE NEGATIVE (Negative)
[2025-05-19 09:03] LABS: Alanine Aminotransferase 35 U/L (0-40); Albumin Level 3.8 g/dL (3.5-5.0); Alkaline Phosphatase 79 U/L (39-117); Anion Gap 14 (12-20); Aspartate Amino Transferase 43 U/L (5-37); Blood Urea Nitrogen 34 mg/dL (9-16); Calcium 9.3 mg/dL (8.4-10.2); Carbon Dioxide 25 mmol/L (22-29); Chloride 105 mmol/L (96-108); Creatinine Clr Calc Pharmacy 80.4; Estimated Glomerular Filt Rate 54; Lipase 16 U/L (8-78); Potassium 5.0 mmol/L (3.3-5.1); Sodium 139 mmol/L (135-145); Total Protein 6.7 g/dL (6.5-8.0)
[2025-05-19 09:09] LABS: Troponin-I High Sensitivity 29.0 ng/L (<3.5-35.0)
--- NOTE | 2025-05-19 10:00 | PM.IMHP ---
History of Present Illness Date of Service: 05/19/25 Chief Complaint: Shortness of breath 79 year old man with hx of COPD [facility] and found to be hypoxic with oxygen saturation of 70% at the [facility] faility. He was placed on 3 liters nasal canula per EMS. He denied chest pain, recent travel, sick contacts, fever, chills. In the ED, Flu, covid and RSV negative. CXR negative for consolidation or effusion. He was given Albuterol, Solumedrol, Magnesium and doxycycline. Patient became obtunded and was placed on Bipap. He will be placed on observation for Acute COPD exacerbation and fluid overload. Review of Systems Review of Systems: Yes Unobtainable due to mental condition [facility] Medical History (Updated 05/19/25 @ 19:01 by Trisha Rodriguez RN) COPD (chronic obstructive pulmonary disease) Unspecified atherosclerosis of [place] arteries of extremities, bilateral legs Hammer toes of both feet Stage 3 chronic kidney disease Mild cognitive impairment Osteoarthritis Hearing loss Chronic a-fib Morbid obesity Anemia, unspecified B-cell lymphoma Family History Other No family history of coronary artery disease Surgical History No pertinent past surgical history Social History Household Members: Other Housing: Other Housing Other:: [facility] Do you presently have visiting nurse or other home services: No Alcohol intake: never Comment: pt in overflow Patient Tobacco Use Status: Former Tobacco user Tobacco use type: Cigarette Smoked in Last 30 Days: No Second Hand Smoke Exposure: No Use of substances other than those prescribed or required for medical reasons: No Currently Displaying Signs/Symptoms of Drug Intoxication Withdrawal: No Advance Directives: Yes Advance Directives on File: Yes Advance Directives Date on File: 06/04/22 Do you have a plan to hurt others: No Plan Recently lost weight without trying: No service: Yes Current occupational status: retired Meds Allergies Allergy/AdvReac Type Severity Reaction Status Date / Time cephalexin (From KEFLEX) Allergy Unknown UNKNOWN Verified 05/19/25 07:23 furosemide (From Lasix) Allergy Unknown Rash Verified 05/19/25 07:23 meropenem (MEROPENEM) Allergy Unknown UNKNOWN Verified 05/19/25 07:23 Penicillins (PENICILLINS) Allergy Unknown UNKNOWN Verified 05/19/25 07:23 sulfamethoxazole (From Allergy Unknown UNKNOWN Verified 05/19/25 07:23 BACTRIM) trimethoprim (From BACTRIM) Allergy Unknown UNKNOWN Verified 05/19/25 07:23 Active Medications: Current Medications Acetaminophen (Acetaminophen 325 Mg Tablet) 650 mg PO Q6H PRN PRN Reason: Pain, Mild 1-3,fever,headache Albuterol Sulfate (Albuterol Sulfate (0.083%) 2.5 Mg/3 Ml Vial.Neb) 2.5 mg INHALE RQ4H WHILE AWAKE DANISHA Calcium Carbonate (Calcium Carbonate 750 Mg Tab.Chew) 750 mg PO Q4H PRN PRN Reason: Heartburn Doxycycline Hyclate 100 mg/ (Sodium Chloride) 250 mls @ 166.67 mls/hr IV ONCE ONE Stop: 05/19/25 11:11 Magnesium Hydroxide (Milk Of Magnesia 30 Ml Oral.Susp) 30 ml PO DAILY PRN PRN Reason: Constipation Melatonin (Melatonin 3 Mg Tablet) 6 mg PO BEDTIME PRN PRN Reason: Insomnia Methylprednisolone Sodium Succinate (Methylprednisolone Sod Succ 40 Mg/Ml Vial) 40 mg IVPUSH Q12H DANISHA Ondansetron HCl (Ondansetron Hcl 4 Mg/2 Ml Vial) 4 mg IVPUSH Q8H PRN PRN Reason: Nausea and Vomiting Sodium Chloride (0.9 % Sodium Chloride Flush 3 Ml Syringe) 3 ml IVFLUSH QSHIFT [facility] Home Medications ?Medication ?Instructions ?Recorded ?Confirmed ?Last Taken ?Type acetaminophen 325 mg tablet 650 mg PO BEDTIME 02/11/22 05/19/25 09/04/22 History acetaminophen 325 mg tablet 650 mg PO Q6H PRN Pain, Mild (Pain 02/11/22 05/19/25 09/05/22 History Scale 1-3)/FEVER aloe vera 5,000 mg capsule 20,000 mg PO DAILY@0600 02/11/22 05/19/25 09/05/22 History ascorbic acid (vitamin C) 250 mg 500 mg PO DAILY@0602/11/22 05/19/25 09/05/22 History tablet (Vitamin C) coenzyme Q10 200 mg capsule 200 mg PO DAILY@0602/11/22 05/19/25 09/05/22 History omega 6-xwl-bwz-fish oil 1,200 mg 2 cap PO DAILY@59902/11/22 05/19/25 09/05/22 History (144 mg-216 mg) capsule (Fish Oil) vitamin E (dl, acetate) 180 mg 180 mg PO DAILY@0602/11/22 05/19/25 09/05/22 History (400 unit) capsule ipratropium 0.5 mg-albuterol 3 mg 3 ml inhalation Q4H PRN Wheezing 06/03/22 05/19/25 08/05/22 History (2.5 mg base)/3 mL nebulization soln Physical Exam Vital Signs and Narrative: Vital Signs: Last Vital Signs Temp 98.5 F 05/19/25 07:22 Pulse 72 05/19/25 07:22 Resp 30 H 05/19/25 09:31 BP 132/71 05/19/25 07:22 Pulse Ox 3 L 05/19/25 07:22 O2 Del Method Nasal Cannula 05/19/25 07:22 BMI result Body Mass Index 52.8 Appearing in no acute distress head is normocephalic atraumatic eyes pupils are PERRLA sclera is anicteric mouth throat mucous membranes are intact and moist neck is supple no lymphadenopathy, no JVD noted lung sounds diminished heart regular rate rhythm, clear S1, S2 positive bowel sounds, abdomen is soft, nontender, obese neuro patient is alert x3, no focal deficits Results Labs 05/20/25 06:04 05/20/25 06:04 Labs: Laboratory Results - last 24 hr 05/19/25 05/19/25 05/19/25 08:04 08:05 08:14 MCV 93.9 MCH 29.8 MCHC 31.8 RDW 13.9 Plt Count 144 L MPV 9.4 Immature Gran % (Auto) 0.4 Neut % (Auto) 67.4 Lymph % (Auto) 18.0 L [place] % (Auto) 8.9 Eos % (Auto) 4.8 H Baso % (Auto) 0.5 Lymph # (Auto) 1.3 [place] # (Auto) 0.7 Eos # (Auto) 0.4 Baso # (Auto) 0.0 Abs Immat Gran (auto) 0.03 Absolute Neuts (auto) 4.9 Absolute Nucleated RBC 0.000 Nucleated RBC % (auto) 0.0 VBG pH 7.28 L VBG pCO2 52 VBG pO2 48 VBG HCO3 25 VBG O2 Saturation 78.0 VBG Base Excess -2.0 Anion Gap Estim Creat Clear Calc Estimated GFR Random Glucose Lactic Acid 1.1 Calcium Total Bilirubin Direct Bilirubin AST ALT Alkaline Phosphatase Troponin I High Sens Total Protein Albumin Lipase Influenza Type A (PCR) NEGATIVE Influenza Type B (PCR) NEGATIVE RSV RNA Qual (PCR) NEGATIVE SARS-CoV-2 RNA (RT-PCR) NEGATIVE 05/19/25 08:43 MCV MCH MCHC RDW Plt Count MPV Immature Gran % (Auto) Neut % (Auto) Lymph % (Auto) [place] % (Auto) Eos % (Auto) Baso % (Auto) Lymph # (Auto) [place] # (Auto) Eos # (Auto) Baso # (Auto) Abs Immat Gran (auto) Absolute Neuts (auto) Absolute Nucleated RBC Nucleated RBC % (auto) VBG pH VBG pCO2 VBG pO2 VBG HCO3 VBG O2 Saturation VBG Base Excess Anion Gap 14 Estim Creat Clear Calc 80.4 Estimated GFR 54 Random Glucose 106 Lactic Acid Calcium 9.3 Total Bilirubin 0.5 Direct Bilirubin 0.2 AST 43 H ALT 35 Alkaline Phosphatase 79 Troponin I High Sens 29.0 Total Protein 6.7 Albumin 3.8 Lipase 16 Influenza Type A (PCR) Influenza Type B (PCR) RSV RNA Qual (PCR) SARS-CoV-2 RNA (RT-PCR) Assessment and Plan (1) COPD exacerbation: Status: Acute (2) Morbid obesity: Status: Acute Plan 79 year old man placed on observation for treatment of COPD and CHF Acute hypoxic respiratory failure secondary to acute on chronic COPD exacerbation and possible heart failure no consolidation noted on CXR elevated BNP, 1626 IV solumedrol Scheduled duonebs Doxycycline for possible bronchitis IV lasix 20 mg BID Placed on bipap in the ED due to obtundation , ABG 7.28/ patient is DNR/DNI, ok for patient to be tx to med tele on bipap echocardiogram Acute metabolic encephalopathy unknown etiology placed on Bipap, ?obesity hypoventilation syndrome check UA, blood cx no fever or leukocytosis Paroxysmal Atrial fibrillation Continue metoprolol and xarelto CKD 3b creatinine at baseline Supermorbid obestity. BMI 52.8 Discussed importance of weight management as this may be contributing to worsening of other comorbidities DVT prophylaxis with Xarelto DNR/DNI Quality Stroke Does the patient have a stroke diagnosis?: No VTE Prior VTE?: No VTE Risk Level:: Medical - moderate - high VTE Device Contraindication: Treatment Not Indicated VTE Drug Contraindication: N/A - Med Ordered
[2025-05-19] MEDS: Furosemide 40 MG/4 ML VIAL IVPUSH (10:03)
--- NOTE | 2025-05-19 10:47 | PC.NURSE ---
Alert but with confusion. Placed on cpap. Transferred to bariatric bed, male purewick placed.
[2025-05-19 10:58] LABS: NT Pro B Type Natriuretic Pept 1626.1 pg/mL (<300)
[2025-05-19] MEDS: Albuterol Sulfate (0.083%) 2.5 MG/3 ML VIAL.NEB INHALE ×3 (11:11→19:07)
--- NOTE | 2025-05-19 11:58 | PC.NURSE ---
Patient with change in mental status, difficult to arrouse. MD aware, switched from cpap to bipap, abg drawn. Patient only arousable to painful stimuli , open eyes but unable to respond , MD at bedside
--- NOTE | 2025-05-19 12:07 | PC.NURSE ---
Patient arrived with signed MOLST stating DNR/DNI okay to use non -invasive ventilation
--- NOTE | 2025-05-19 12:52 | PC.NURSE ---
Continues on bipap- patient minimally responsive to painful stimuli. aware
--- NOTE | 2025-05-19 13:03 | PC.RT ---
pt was on cpap earlier due to low sats and sleeping. [facility] RT went to assess pt and pt was obtunded and needed a sternal rub. abg was done and showed ph was 7.3 and co2 50's. therefore pt was swithsed from cpap to bipap. will repeat abg at 2pm today.
--- NOTE | 2025-05-19 15:06 | PC.NURSE ---
More responsive to verbal stimuli, continues on bipap , vss
--- NOTE | 2025-05-19 15:08 | PHA.MEDREC ---
Pharmacy Consult ? Medication Reconciliation Pharmacy has completed the medication reconciliation. Utilized med list from [facility] to complete
[2025-05-19 16:27] LABS: Ammonia 43 umol/L (13-55)
--- NOTE | 2025-05-19 16:35 | PC.NURSE ---
Alert and responsive, confused but able to make needs known, denies pain ro discomfort
[2025-05-19] MEDS: 0.9 % Sodium Chloride Flush 3 ML SYRINGE IVFLUSH ×2 (17:56→23:53)
[2025-05-20] VITALS (12 sets, daily range): BP systolic 133–157; BP diastolic 62–85; PULSE 54–86; RESP 18–24; TEMP 36–37; O2SAT 94–99
[2025-05-20 06:32] LABS: Hematocrit 44.7 % (42.0-52.0); Hemoglobin 14.7 g/dl (14.0-18.0); Mean Corpuscular HGB Conc 32.9 g/dl (31.0-36.0); Mean Corpuscular Hemoglobin 29.5 pg (27.0-33.0); Mean Corpuscular Volume 89.8 fL (80.0-98.0); NRBC Abs Auto 0.000 X10*3/uL (0.0-0.012); NRBC Pct Auto 0.0 /100WBC (0.0-0.2); Platelet Count 162 X10*3/uL (160-400); Red Blood Count 4.98 X10*6/uL (4.60-5.80); White Blood Count 6.1 X10*3/uL (4.8-10.8)
[2025-05-20] MEDS: Metoprolol Succinate ER 100 MG TAB.ER.24H PO (06:36)
[2025-05-20 06:47] LABS: Anion Gap 14 (12-20); Blood Urea Nitrogen 38 mg/dL (9-16); Calcium 9.2 mg/dL (8.4-10.2); Carbon Dioxide 27 mmol/L (22-29); Chloride 106 mmol/L (96-108); Creatinine Clr Calc Pharmacy 87.9; Estimated Glomerular Filt Rate 60; Potassium 4.7 mmol/L (3.3-5.1); Sodium 142 mmol/L (135-145)
--- NOTE | 2025-05-20 07:00 | CA_ITS ---
Transthoracic Echocardiogram Patient (Last, First, Middle): Miguel Ángel Bates T Gender: M Date of : 1945 Age: 78 Procedure Date: 05/20/2025 Procedure Type: Transthoracic Echocardiogram [place] [facility] [place]: 185.42 cm Weight: 181.44 kg BSA: 2.89 m2 Heart Rate: bpm BP: 157 / 85 mmHg Radiology Assistant: TO Referring MD: Steph Yañez NP Medical Records Secretary: Nate Ronquillo MD Symptoms: ? chf Study Quality: Technically Difficult w contrast ECG Rhythm: Atrial Fibrillation Conclusions: - 1. Normal LV ejection fraction of 60 65% 2. 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 Moderate aortic stenosis 4. Mildly dilated ascending aorta Findings Procedure Information Contrast agent, definity, is being given per protocol without apparent complications. Left Ventricle Normal left ventricular size and systolic function. The visually estimated ejection fraction is between 60-65%. Diastolic function is indeterminate on the basis of available data. Right Ventricle The right ventricle was not well visualized. Atria The left atrium is moderately dilated. Interatrial shunt cannot be excluded. the masses suggestive of left atrial myxoma. Will need further imaging with LAURO to further assess it. The right atrium is mildly dilated. Aortic Valve There is mild calcification of the aortic valve. There is moderate thickening of the aortic valve. There is moderate aortic valve stenosis. There is no aortic valve regurgitation. Mitral Valve The mitral valve was not well visualized. There is no mitral valve regurgitation. There is no mitral valve stenosis. Pulmonic Valve The pulmonic valve was not well visualized. Tricuspid Valve There is mild tricuspid valve regurgitation. The right ventricular systolic pressure is not calculated. Indeterminate right atrial pressure. Great Vessels The aorta was not well visualized. The pulmonary artery was not well visualized. There is mild dilatation of the ascending aorta measuring 4.00 cm. Venous The inferior vena cava was not well visualized. Pericardium/Pleural The pericardium was not well visualized. Recommendations, Care & Conclusions Recommend a LAURO. Measurements 2D Linear Measurements IVSd: 1.59 0.6-0.9/0.6-1.0 cm LVIDd: 4.30 3.9-5.3/4.2-5.9 cm LVIDd Index: 1.49 2.4-3.2/2.2-3.1 cm/m2 LVIDs: 2.66 2.0-3.6 cm LVPWd: 1.25 0.7-1.1 cm LV Mass: 295.87 67-162/88-224 g LV Mass Index: 102.38 43-95/49-115 g/m2 LVOT Diam: 2.60 3.0+(-)1.3 cm 2D Systolic Function EF 4C: 58.60 >55% Mitral Valve MV Pk E: 1.10 MV Decel Time: 232.00 E'Lateral: 5.04 E'Medial: 6.27 E/E' Med: 17.50 E/E' Lat: 21.80 PHT: 68.00 MVA PHT: 3.24 Decel [place]: 4.77 Aortic Valve AoV Pk Murray: 2.95 AoV Mn Murray: 2.07 AoV VTI: 0.61 AoV Pk Grad: 35.00 Aov Mn Grad: 19.00 LE Cont.VTI: 1.51 LVOT LVOT Pk Murray: 0.84 LVOT Mn Murray: 0.63 LVOT VTI: 0.17 LVOT Pk Grad: 3.00 LVOT Mn Grad: 2.00 LVOT Diam: 2.60 LVOT Area: 5.31 Diastolic Function MV Pk E: 1.10 E'Medial: 6.27 E/E' Med: 17.50 E' Laterial: 5.04 E/E' Lat: 21.80 Right Ventricle TAPSE (mm): 17.80 TVS' Murray: 9.95 Tricuspid Valve TR Pk Murray: 3.12 TR Pk Grad: 39.00 Great Vessels Aorta Sinus of Valsalva: 3.61 2.0-3.5 cm Ao Asc: 4.00 2.1-3.4 cm Updated in Other Vendor System with Status of Final Nate Ronquillo MD electronically signed on 05/20/2025 4:35:52 PM with status of Final
--- NOTE | 2025-05-20 07:53 | P.PNIM_ITS ---
Subjective Subjective Date of Service: 05/20/25 Interval History: No new issues or complaints The patient is laying comfortably in bed with O2 NC 2L ]No respiratory distress Feels better todayt than he did yesterday Review of Systems Review of Systems: Yes all other systems are reviewed and are negative Physical Exam 2 Exam: Exam: Vital Signs:?Afebrile. BP stable. HR controlled. RR elevated. O2 saturation mid?90s on BiPAP / supplemental O2. General:?Obese elderly male, intermittently somnolent but arousable, on BiPAP, no acute distress at rest. HEENT:?Normocephalic, atraumatic. Pupils equal and reactive. Mucous membranes moist. Neck:?Supple. No JVD appreciated (limited by body habitus). Pulmonary:?Diminished breath sounds bilaterally with prolonged expiratory phase. Mild diffuse expiratory wheezing. Bibasilar rales. Increased work of breathing off NIPPV. Cardiovascular:?Regular rate and rhythm. Normal S1/S2. No murmurs, rubs, or gallops. Abdomen:?Obese, soft, non-tender, non-distended. Bowel sounds present. Extremities:?+3 to +4 bilateral lower extremity pitting edema. No erythema or warmth. Neurologic:?Arousable to voice and touch. Oriented when awake. No focal neurologic deficits. Skin:?Warm, dry, intact. No rashes or lesions noted Vital Signs: Vital Signs: Last Vital Signs Temp 96.8 F 05/20/25 07:29 Pulse 70 05/20/25 07:29 Resp 20 05/20/25 07:29 BP 157/85 H 05/20/25 07:29 Pulse Ox 96 05/20/25 07:29 O2 Del Method Nasal Cannula 05/20/25 07:29 O2 Flow Rate 2 05/20/25 07:29 BMI result Body Mass Index 52.8 Objective Data Active Medications Acetaminophen (Acetaminophen 325 Mg Tablet) 650 mg PO Q6H PRN PRN Reason: Pain, Mild 1-3,fever,headache Albuterol Sulfate (Albuterol Sulfate (0.083%) 2.5 Mg/3 Ml Vial.Neb) 2.5 mg INHALE RQ4H WHILE AWAKE DANISHA Last Admin: 05/19/25 19:07 Dose: 2.5 mg Documented By: MADDIE Albuterol/Ipratropium (Albuterol/Iprat 2.5/0.5mg 3 Ml Ampul.Neb) 3 ml INHALE Q4H PRN PRN Reason: Wheezing Calcium Carbonate (Calcium Carbonate 750 Mg Tab.Chew) 750 mg PO Q4H PRN PRN Reason: Heartburn Furosemide (Furosemide 20 Mg/2 Ml Vial) 20 mg IVPUSH BID@0900,1800 [facility]; Protocol Doxycycline Hyclate 100 mg/ (Sodium Chloride) 250 mls @ 166.67 mls/hr IV Q12H [facility] Last Infusion: 05/19/25 23:20 Dose: Infused Documented By: HIRO Magnesium Hydroxide (Milk Of Magnesia 30 Ml Oral.Susp) 30 ml PO DAILY PRN PRN Reason: Constipation Melatonin (Melatonin 3 Mg Tablet) 6 mg PO BEDTIME PRN PRN Reason: Insomnia Methylprednisolone Sodium Succinate (Methylprednisolone Sod Succ 40 Mg/Ml Vial) 40 mg IVPUSH Q12H [facility] Last Admin: 05/19/25 21:36 Dose: 40 mg Documented By: HIRO Metoprolol Succinate (Metoprolol Succinate Er 100 Mg Tab.Er.24h) 100 mg PO DAILY@0600 [facility]; Protocol Last Admin: 05/20/25 06:36 Dose: 100 mg Documented By: HIRO Ondansetron HCl (Ondansetron Hcl 4 Mg/2 Ml Vial) 4 mg IVPUSH Q8H PRN PRN Reason: Nausea and Vomiting Sodium Chloride (0.9 % Sodium Chloride Flush 3 Ml Syringe) 3 ml IVFLUSH QSHIFT [facility] Last Admin: 05/19/25 23:53 Dose: 3 ml Documented By: HIRO Labs 05/20/25 06:04 05/20/25 06:04 Labs: Laboratory Results - last 24 hr 05/19/25 05/19/25 05/19/25 08:04 08:05 08:14 MCV 93.9 MCH 29.8 MCHC 31.8 RDW 13.9 Plt Count 144 L MPV 9.4 Immature Gran % (Auto) 0.4 Neut % (Auto) 67.4 Lymph % (Auto) 18.0 L [place] % (Auto) 8.9 Eos % (Auto) 4.8 H Baso % (Auto) 0.5 Lymph # (Auto) 1.3 [place] # (Auto) 0.7 Eos # (Auto) 0.4 Baso # (Auto) 0.0 Abs Immat Gran (auto) 0.03 Absolute Neuts (auto) 4.9 Absolute Nucleated RBC 0.000 Nucleated RBC % (auto) 0.0 VBG pH 7.28 L VBG pCO2 52 VBG pO2 48 VBG HCO3 25 VBG O2 Saturation 78.0 VBG Base Excess -2.0 Anion Gap Estim Creat Clear Calc Estimated GFR Random Glucose Lactic Acid 1.1 Calcium Total Bilirubin Direct Bilirubin AST ALT Alkaline Phosphatase Ammonia Troponin I High Sens NT-Pro-B Natriuret Pep Total Protein Albumin Lipase Influenza Type A (PCR) NEGATIVE Influenza Type B (PCR) NEGATIVE RSV RNA Qual (PCR) NEGATIVE SARS-CoV-2 RNA (RT-PCR) NEGATIVE 05/19/25 05/19/25 05/19/25 08:43 10:33 16:04 MCV MCH MCHC RDW Plt Count MPV Immature Gran % (Auto) Neut % (Auto) Lymph % (Auto) [place] % (Auto) Eos % (Auto) Baso % (Auto) Lymph # (Auto) [place] # (Auto) Eos # (Auto) Baso # (Auto) Abs Immat Gran (auto) Absolute Neuts (auto) Absolute Nucleated RBC Nucleated RBC % (auto) VBG pH VBG pCO2 VBG pO2 VBG HCO3 VBG O2 Saturation VBG Base Excess Anion Gap 14 Estim Creat Clear Calc 80.4 Estimated GFR 54 Random Glucose 106 Lactic Acid Calcium 9.3 Total Bilirubin 0.5 Direct Bilirubin 0.2 AST 43 H ALT 35 Alkaline Phosphatase 79 Ammonia 43 Troponin I High Sens 29.0 NT-Pro-B Natriuret Pep 1626.1 H Total Protein 6.7 Albumin 3.8 Lipase 16 Influenza Type A (PCR) Influenza Type B (PCR) RSV RNA Qual (PCR) SARS-CoV-2 RNA (RT-PCR) 05/20/25 06:04 MCV 89.8 MCH 29.5 MCHC 32.9 RDW 13.5 Plt Count 162 MPV 8.9 L Immature Gran % (Auto) Neut % (Auto) Lymph % (Auto) [place] % (Auto) Eos % (Auto) Baso % (Auto) Lymph # (Auto) [place] # (Auto) Eos # (Auto) Baso # (Auto) Abs Immat Gran (auto) Absolute Neuts (auto) Absolute Nucleated RBC 0.000 Nucleated RBC % (auto) 0.0 VBG pH VBG pCO2 VBG pO2 VBG HCO3 VBG O2 Saturation VBG Base Excess Anion Gap 14 Estim Creat Clear Calc 87.9 Estimated GFR 60 Random Glucose 134 H Lactic Acid Calcium 9.2 Total Bilirubin Direct Bilirubin AST ALT Alkaline Phosphatase Ammonia Troponin I High Sens NT-Pro-B Natriuret Pep Total Protein Albumin Lipase Influenza Type A (PCR) Influenza Type B (PCR) RSV RNA Qual (PCR) SARS-CoV-2 RNA (RT-PCR) Assessment and Plan (1) Elevated troponin: Status: Acute (2) Chronic a-fib: Status: Acute (3) Morbid obesity: Status: Acute (4) Acute upper respiratory infection: Status: Acute (5) Acute kidney injury superimposed on CKD: Status: Acute (6) Leukocytosis: Status: Acute (7) Monoclonal gammopathy: Status: Acute (8) Acute bronchitis: Status: Acute (9) COPD exacerbation: Status: Acute Plan 79-year-old man with severe COPD, morbid obesity (BMI 52.8), SHANDA with poor CPAP compliance, chronic atrial fibrillation on anticoagulation, CKD stage 3b, and B?cell lymphoma, admitted from LTC for acute hypoxic and hypercapnic respiratory failure due to acute on chronic COPD exacerbation with suspected volume overload, requiring BiPAP for obtundation and respiratory acidosis; DNR/DNI, now admitted to medical telemetry on noninvasive ventilation. Acute hypoxic and hypercapnic respiratory failure Secondary to acute on chronic COPD exacerbation with contributory SHANDA/obesity hypoventilation and possible volume overload Presented with severe hypoxia (O2 sat ?70% at LTC), respiratory acidosis (VBG 7.28/52), obtundation requiring escalation from CPAP to BiPAP. CXR without focal consolidation but with questionable pulmonary vascular congestion and right- sided atelectasis/infiltrate. Viral testing negative. Improved oxygenation on BiPAP. Plan: * Restart?BiPAP?per RT settings (IPAP 18 / EPAP 8, FiO2 28%) as appropriate * Maintain O2 saturation goal?88?92% * Repeat?ABG/VBG?as clinically indicated * Continuous pulse oximetry and telemetry * Escalation limited per?DNR/DNI?(no intubation) Acute COPD exacerbation Likely triggered by hypoventilation and possible bronchitis; no clear pneumonia. Treated with systemic steroids, bronchodilators, magnesium, and empiric doxycycline with partial improvement. Plan: * Continue?IV methylprednisolone 40 mg q12h, reassess daily for taper/PO transition * Scheduled?Duonebs q4h while awake * Continue?doxycycline?to complete course for possible infectious trigger * Incentive spirometry as tolerated * Pulmonary hygiene and RT follow-up Possible acute decompensated heart failure / volume overload Marked bilateral lower extremity edema and elevated BNP (1626) with radiographic suggestion of pulmonary vascular congestion. Plan: * Continue?IV with furosemide * Strict?I&O, daily weights * Monitor renal function and electrolytes daily * Transthoracic echocardiogram?ordered to assess cardiac function Acute metabolic encephalopathy Multifactorial, likely driven by hypercapnia and hypoxia; no fever, leukocytosis, or clear infectious source. Plan: * Treat underlying respiratory failure * Monitor mental status closely * Follow pending?blood cultures * Check?UA?if not already obtained Obstructive sleep apnea / suspected obesity hypoventilation syndrome Known SHANDA with poor CPAP adherence; likely contributor to hypercapnia and respiratory failure. Plan: * Continue?nocturnal BiPAP * Reinforce importance of long-term PAP compliance * Consider outpatient sleep medicine follow-up after stabilization Chronic atrial fibrillation Rate controlled; no evidence of acute ischemia. On chronic anticoagulation. Plan: * Continue?metoprolol?for rate control * Continue?rivaroxaban (Xarelto)?for anticoagulation * Telemetry monitoring Chronic kidney disease stage 3b Renal function at baseline on admission. Plan: * Monitor?BMP daily, especially with diuresis * Avoid nephrotoxins * Adjust medications as needed for renal function Morbid obesity (BMI 52.8) Significant contributor to respiratory mechanics and cardiopulmonary disease. Plan: * Build Engineer on impact of obesity on respiratory failure * Optimize mobility and positioning during hospitalization * Address weight management in outpatient setting when stable History of B-cell lymphoma No evidence of active disease or treatment-related complications during this admission. Plan: * No acute inpatient intervention required * Continue outpatient oncology follow-up as scheduled [facility] * VTE: Therapeutic anticoagulation with Xarelto * CODE STATUS: DNR/DNI * DIET: [ ] * OXYGEN DEVICE: BiPAP Total time managing care of this patient today: 35 minutes. Quality Stroke Does the patient have a stroke diagnosis?: No VTE Prior VTE?: No VTE Risk Level:: Medical - moderate - high VTE Device Contraindication: Treatment Not Indicated VTE Drug Contraindication: N/A - Med Ordered
[2025-05-20] MEDS: Furosemide 20 MG/2 ML VIAL IVPUSH ×2 (08:43→17:47)
[2025-05-20] MEDS: 0.9 % Sodium Chloride Flush 3 ML SYRINGE IVFLUSH ×2 (08:43→17:47)
[2025-05-20 08:51] LABS: Chlamydia pneumoniae PCR Not Detected (Not Detect.); Coronavirus 229E PCR Not Detected (Not Detect.); Coronavirus HKU1 PCR Not Detected (Not Detect.); Coronavirus NL63 PCR Not Detected (Not Detect.); Coronavirus OC43 PCR Not Detected (Not Detect.); RSV PCR Not Detected (Not Detect.); Rhino/Enterovirus PCR Not Detected (Not Detect.)
[2025-05-20 10:32] LABS: Influenza A H1 PCR Not Detected (Not Detect.); Influenza A H1-2009 PCR Not Detected (Not Detect.); SARS-CoV-2 PCR Not Detected (Not Detect.)
[2025-05-20 10:33] LABS: Influenza A H3 PCR Not Detected (Not Detect.)
--- NOTE | 2025-05-20 10:50 | MHC.CM.PN ---
Raquel 05/20/25, [facility] He is confused at baseline. CM spoke to his sister Madyson, who is HCP, sent Raquel via email. Pt. [facility] return to [facility] at [place], CM to follow for DC needs.
[2025-05-20] MEDS: Albuterol Sulfate (0.083%) 2.5 MG/3 ML VIAL.NEB INHALE ×2 (11:10→19:50)
[2025-05-21] VITALS (14 sets, daily range): BP systolic 126–147; BP diastolic 59–88; PULSE 68–86; RESP 16–20; TEMP 36–37.1; O2SAT 93–97
[2025-05-21] MEDS: Metoprolol Succinate ER 100 MG TAB.ER.24H PO (06:17)
[2025-05-21] MEDS: Albuterol Sulfate (0.083%) 2.5 MG/3 ML VIAL.NEB INHALE ×4 (08:38→19:41)
[2025-05-21] MEDS: Furosemide 20 MG/2 ML VIAL IVPUSH ×2 (09:45→17:15)
[2025-05-21] MEDS: 0.9 % Sodium Chloride Flush 3 ML SYRINGE IVFLUSH ×3 (09:46→20:16)
--- NOTE | 2025-05-21 16:44 | P.PNIM_ITS ---
Subjective Subjective Date of Service: 05/21/25 Interval History: no new complaints today respiraotry function gradually improving no new symptoms or complaints Review of Systems Review of Systems: Yes all other systems are reviewed and are negative Physical Exam 2 Exam: Exam: Vital Signs:?Afebrile. BP stable. HR controlled. RR elevated. O2 saturation mid?90s on BiPAP / supplemental O2. General:?Obese elderly male, intermittently somnolent but arousable, on BiPAP, no acute distress at rest. HEENT:?Normocephalic, atraumatic. Pupils equal and reactive. Mucous membranes moist. Neck:?Supple. No JVD appreciated (limited by body habitus). Pulmonary:?Diminished breath sounds bilaterally with prolonged expiratory phase. Mild diffuse expiratory wheezing. Bibasilar rales. Increased work of breathing off NIPPV. Cardiovascular:?Regular rate and rhythm. Normal S1/S2. No murmurs, rubs, or gallops. Abdomen:?Obese, soft, non-tender, non-distended. Bowel sounds present. Extremities:?+3 to +4 bilateral lower extremity pitting edema. No erythema or warmth. Neurologic:?Arousable to voice and touch. Oriented when awake. No focal neurologic deficits. Skin:?Warm, dry, intact. No rashes or lesions noted Vital Signs: Vital Signs: Last Vital Signs Temp 98.7 F 05/21/25 15:53 Pulse 70 05/21/25 15:53 Resp 16 05/21/25 15:53 BP 126/59 L 05/21/25 15:53 Pulse Ox 93 05/21/25 15:53 O2 Del Method Nasal Cannula 05/21/25 15:53 O2 Flow Rate 2 05/21/25 15:53 BMI result Body Mass Index 52.8 Objective Data Active Medications Acetaminophen (Acetaminophen 325 Mg Tablet) 650 mg PO Q6H PRN PRN Reason: Pain, Mild 1-3,fever,headache Albuterol Sulfate (Albuterol Sulfate (0.083%) 2.5 Mg/3 Ml Vial.Neb) 2.5 mg INHALE RQ4H WHILE AWAKE DANISHA Last Admin: 05/21/25 15:41 Dose: 2.5 mg Documented By: SCOVILH Albuterol/Ipratropium (Albuterol/Iprat 2.5/0.5mg 3 Ml Ampul.Neb) 3 ml INHALE Q4H PRN PRN Reason: Wheezing Calcium Carbonate (Calcium Carbonate 750 Mg Tab.Chew) 750 mg PO Q4H PRN PRN Reason: Heartburn Furosemide (Furosemide 20 Mg/2 Ml Vial) 20 mg IVPUSH BID@0900,1800 [facility]; Protocol Last Admin: 05/21/25 09:45 Dose: 20 mg Documented By: JAIDA Doxycycline Hyclate 100 mg/ (Sodium Chloride) 250 mls @ 166.67 mls/hr IV Q12H [facility] Last Infusion: 05/21/25 11:28 Dose: Infused Documented By: JAIDA Magnesium Hydroxide (Milk Of Magnesia 30 Ml Oral.Susp) 30 ml PO DAILY PRN PRN Reason: Constipation Melatonin (Melatonin 3 Mg Tablet) 6 mg PO BEDTIME PRN PRN Reason: Insomnia Methylprednisolone Sodium Succinate (Methylprednisolone Sod Succ 40 Mg/Ml Vial) 40 mg IVPUSH Q12H [facility] Last Admin: 05/21/25 09:45 Dose: 40 mg Documented By: JAIDA Metoprolol Succinate (Metoprolol Succinate Er 100 Mg Tab.Er.24h) 100 mg PO DAILY@0600 [facility]; Protocol Last Admin: 05/21/25 06:17 Dose: 100 mg Documented By: WILBUR Ondansetron HCl (Ondansetron Hcl 4 Mg/2 Ml Vial) 4 mg IVPUSH Q8H PRN PRN Reason: Nausea and Vomiting Sodium Chloride (0.9 % Sodium Chloride Flush 3 Ml Syringe) 3 ml IVFLUSH QSHIFT [facility] Last Admin: 05/21/25 09:46 Dose: 3 ml Documented By: JAIDA Labs 05/20/25 06:04 05/20/25 06:04 Microbiology Microbiology Results: Microbiology 05/19/25 08:43 Blood Culture - Preliminary Blood - Venous No growth after 48 hours. 05/19/25 08:09 Blood Culture - Preliminary Blood - Venous No growth after 48 hours. Assessment and Plan (1) Elevated troponin: Status: Acute (2) Chronic a-fib: Status: Acute (3) Morbid obesity: Status: Acute (4) DVT, lower extremity: Status: Acute (5) Acute kidney injury: Status: Acute (6) Acute kidney injury superimposed on CKD: Status: Acute (7) Monoclonal gammopathy: Status: Acute (8) Acute bronchitis: Status: Acute (9) COPD exacerbation: Status: Acute Plan 79-year-old man with severe COPD, morbid obesity (BMI 52.8), SHANDA with poor CPAP compliance, chronic atrial fibrillation on anticoagulation, CKD stage 3b, and B?cell lymphoma, admitted from LTC for acute hypoxic and hypercapnic respiratory failure due to acute on chronic COPD exacerbation with suspected volume overload, requiring BiPAP for obtundation and respiratory acidosis; DNR/DNI, now admitted to medical telemetry on noninvasive ventilation. Acute hypoxic and hypercapnic respiratory failure Secondary to acute on chronic COPD exacerbation with contributory SHANDA/obesity hypoventilation and possible volume overload Presented with severe hypoxia (O2 sat 70% at LTC), respiratory acidosis (VBG 7.28/52), obtundation requiring escalation from CPAP to BiPAP. CXR without focal consolidation but with questionable pulmonary vascular congestion and right- sided atelectasis/infiltrate. Viral testing negative. Improved oxygenation on BiPAP. Plan: * Restart?BiPAP?per RT settings (IPAP 18 / EPAP 8, FiO2 28%) as appropriate * Maintain O2 saturation goal?88?92% * Repeat?ABG/VBG?as clinically indicated * Continuous pulse oximetry and telemetry * Escalation limited per?DNR/DNI?(no intubation) Acute COPD exacerbation Likely triggered by hypoventilation and possible bronchitis; no clear pneumonia. Treated with systemic steroids, bronchodilators, magnesium, and empiric doxycycline with partial improvement. Plan: * Continue?IV methylprednisolone 40 mg q12h, reassess daily for taper/PO transition * Scheduled?Duonebs q4h while awake * Continue?doxycycline?to complete course for possible infectious trigger * Incentive spirometry as tolerated * Pulmonary hygiene and RT follow-up Possible acute decompensated heart failure / volume overload Marked bilateral lower extremity edema and elevated BNP (1626) with radiographic suggestion of pulmonary vascular congestion. Plan: * Continue?IV with furosemide * Strict?I&O, daily weights * Monitor renal function and electrolytes daily * Transthoracic echocardiogram?ordered to assess cardiac function Acute metabolic encephalopathy Multifactorial, likely driven by hypercapnia and hypoxia; no fever, leukocytosis, or clear infectious source. Plan: * Treat underlying respiratory failure * Monitor mental status closely * Follow pending?blood cultures * Check?UA?if not already obtained Obstructive sleep apnea / suspected obesity hypoventilation syndrome Known SHANDA with poor CPAP adherence; likely contributor to hypercapnia and respiratory failure. Plan: * Continue?nocturnal BiPAP * Reinforce importance of long-term PAP compliance * Consider outpatient sleep medicine follow-up after stabilization Chronic atrial fibrillation Rate controlled; no evidence of acute ischemia. On chronic anticoagulation. Plan: * Continue?metoprolol?for rate control * Continue?rivaroxaban (Xarelto)?for anticoagulation * Telemetry monitoring Chronic kidney disease stage 3b Renal function at baseline on admission. Plan: * Monitor?BMP daily, especially with diuresis * Avoid nephrotoxins * Adjust medications as needed for renal function Morbid obesity (BMI 52.8) Significant contributor to respiratory mechanics and cardiopulmonary disease. Plan: * Inspector Wreath on impact of obesity on respiratory failure * Optimize mobility and positioning during hospitalization * Address weight management in outpatient setting when stable History of B-cell lymphoma No evidence of active disease or treatment-related complications during this admission. Plan: * No acute inpatient intervention required * Continue outpatient oncology follow-up as scheduled [facility] * VTE: Therapeutic anticoagulation with Xarelto * CODE STATUS: DNR/DNI * DIET: regular * OXYGEN DEVICE: BiPAP Total time managing care of this patient today: 45 minutes. Quality Stroke Does the patient have a stroke diagnosis?: No VTE Prior VTE?: No VTE Risk Level:: Medical - moderate - high VTE Device Contraindication: Treatment Not Indicated VTE Drug Contraindication: N/A - Med Ordered
[2025-05-21] MEDS: Milk of Magnesia 30 ML ORAL.SUSP PO (20:15)
[2025-05-22 03:01] VITALS: BP 144/75; PULSE 78; RESP 20; TEMP 36.2; O2SAT 95
--- NOTE | 2025-05-22 03:28 | PC.RT ---
When RT attempted to get the Pt to wear nighttime NIV, the Pt did not seem to understand what the RT was requesting. Pt seemed very confused and did not wish to have the mask placed on them.
[2025-05-22 05:58] VITALS: PULSE 72
[2025-05-22] MEDS: Metoprolol Succinate ER 100 MG TAB.ER.24H PO (05:58)
[2025-05-22 07:18] VITALS: BP 143/71; PULSE 73; RESP 20; TEMP 35.9; O2SAT 97
[2025-05-22] MEDS: Albuterol Sulfate (0.083%) 2.5 MG/3 ML VIAL.NEB INHALE (08:25)
[2025-05-22 08:27] VITALS: PULSE 74; RESP 18
[2025-05-22 08:30] VITALS: BP 143/71
[2025-05-22] MEDS: Furosemide 20 MG/2 ML VIAL IVPUSH (08:30)
[2025-05-22] MEDS: 0.9 % Sodium Chloride Flush 3 ML SYRINGE IVFLUSH (08:31)
--- NOTE | 2025-05-22 11:20 | MHC.CM.PN ---
Patient discharged today. He will return to the [facility] home via BLS. 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 Patients return approved by supervisor fabrication and assembly, Marilee. Nurse 2 nurse report provided by RN. Patient HCP notified of patient discharge today.
--- NOTE | 2025-05-22 11:30 | P.DS_ITS ---
DS: Providers Provider Date of admission: 05/19/25 09:56 Date of discharge: 05/22/25 Primary care physician: Unknown Physician DS: Diagnosis Discharge Diagnosis (1) Elevated troponin: Status: Acute (2) Chronic a-fib: Status: Acute (3) Morbid obesity: Status: Acute (4) DVT, lower extremity: Status: Acute (5) Acute kidney injury: Status: Acute (6) Acute kidney injury superimposed on CKD: Status: Acute (7) Monoclonal gammopathy: Status: Acute (8) Acute bronchitis: Status: Acute (9) COPD exacerbation: Status: Acute DS: Summary Hospital Course Hospital Course: 79-year-old man?with severe COPD, morbid obesity (BMI 52.8), SHANDA with poor CPAP compliance, chronic atrial fibrillation on anticoagulation, CKD stage 3b, and history of B?cell lymphoma, admitted from LTC for?acute hypoxic and hypercapnic respiratory failure?due to?acute on chronic COPD exacerbation with contributory obesity hypoventilation/SHANDA and volume overload, requiring BiPAP for obtundation and respiratory acidosis;?DNR/DNI, now significantly improved, weaned to low?flow oxygen, and medically stable for discharge back to LTC. Acute Hypoxic and Hypercapnic Respiratory Failure Secondary to acute on chronic COPD exacerbation with SHANDA/obesity hypoventilation and volume overload Presented with O2 saturation 70% at LTC and respiratory acidosis (VBG 7.28/52) requiring escalation to BiPAP. No evidence of pneumonia or viral infection. Gradual improvement in gas exchange and mental status with NIPPV, bronchodilators, steroids, antibiotics, and diuresis. Now stable on nasal cannula. Plan: * Discharge on supplemental O? per baseline requirements * Continue nocturnal PAP therapy (BiPAP/CPAP) at LTC * Maintain O2 saturation goal 88?92% * Reinforce adherence to PAP therapy Acute COPD Exacerbation Likely triggered by hypoventilation and acute bronchitis; no focal consolidation on imaging Treated with systemic steroids, bronchodilators, empiric antibiotics, and supportive care with good clinical response. Plan: * Levofloxacin 750 mg PO daily x 5 days * Prednisone taper: * 60 mg PO daily x 3 days * Then gradual dose de-escalation per discharge prescription * Continue scheduled bronchodilator therapy at LTC * PRN short acting bronchodilators for dyspnea/wheezing Possible Acute Decompensated Heart Failure / Volume Overload Significant bilateral lower extremity edema and elevated BNP (1626) on admission; improved with IV diuresis. Plan: * Transition to oral diuretics as tolerated * Daily weights at LTC * Monitor for recurrent edema or dyspnea * Outpatient cardiology follow?up as indicated Acute Metabolic Encephalopathy (Resolved) Likely secondary to hypercapnia and hypoxia; no infectious source identified. Mental status normalized with correction of respiratory failure. Plan: * No further inpatient workup required * Monitor mental status at LTC Obstructive Sleep Apnea / Obesity Hypoventilation Syndrome Known SHANDA with poor PAP compliance, contributing to respiratory failure. Plan: * Strict nocturnal PAP use emphasized * Reinforce staff assistance with device adherence at LTC * Consider outpatient sleep medicine follow?up Chronic Atrial Fibrillation Rate controlled throughout hospitalization; no ischemic symptoms. Plan: * Continue metoprolol succinate * Continue rivaroxaban (Xarelto) for anticoagulation Chronic Kidney Disease Stage 3b Renal function remained at baseline during hospitalization. Plan: * Avoid nephrotoxins * Monitor renal function as outpatient Morbid Obesity (BMI 52.8) Major contributor to cardiopulmonary disease and respiratory mechanics. Plan: * Auction Clerk on impact of obesity on respiratory failure * Encourage mobility and positioning optimization * Address weight management in outpatient setting History of B?Cell Lymphoma No evidence of active disease or treatment?related complications during admission. Plan: * Continue routine outpatient oncology follow?up Time Attestation Total time managing care of this patient today: 45 mintues. Discharge Coordination Time (in mins): 45 Quality: Safe Use of Opioids Does Pt have an Active Cancer Diagnosis on the Problem List?: No Quality: Stroke Does the patient have a stroke diagnosis?: No Physical Exam Exam: Exam: Vital Signs:?Afebrile. BP stable. HR controlled. RR mildly elevated. O? saturation low?to?mid 90s on nasal cannula. General:?Obese elderly male, awake and alert, resting comfortably in bed, no acute distress. HEENT:?Normocephalic, atraumatic. Pupils equal and reactive. Mucous membranes moist. Neck:?Supple. No jugular venous distention appreciated (limited by body habitus). Pulmonary:?Diminished breath sounds bilaterally with prolonged expiratory phase. Scattered end-expiratory wheezes resolved. Bibasilar rales improved. No accessory muscle use at rest. Cardiovascular:?Regular rate and rhythm. Normal S1/S2. No murmurs, rubs, or gallops. Abdomen:?Obese, soft, non?tender, non?distended. Bowel sounds present. Extremities:?Bilateral lower extremity pitting edema, improved from admission. No erythema or warmth. Neurologic:?Alert and oriented. Speech clear. No focal neurologic deficits. Skin:?Warm, dry, intact. No rashes or lesions. Vital Signs: Vital Signs: Last Vital Signs Temp 96.7 F L 05/22/25 07:18 Pulse 74 05/22/25 08:27 Resp 18 05/22/25 08:27 BP 143/71 H 05/22/25 08:30 Pulse Ox 97 05/22/25 07:18 O2 Del Method Nasal Cannula 05/22/25 07:18 O2 Flow Rate 2 05/22/25 07:18 BMI result Body Mass Index 52.8 DS: Data Data Completed and Pending Labs on day of discharge: Preliminary micro results at discharge 05/19/25 08:43 Blood Culture - Preliminary Blood - Venous No growth after 48 hours. 05/19/25 08:09 Blood Culture - Preliminary Blood - Venous No growth after 48 hours. Discharge Plan Discharge Anticipated Discharge Date/Time: 05/22/25 11:35 Patient Disposition: [facility] Referrals: Physician,Unknown J [Primary Care Provider, Medical] - 1 Week Discharge Medications: New prednisone 20 mg tablet 60 mg PO DAILY Qty: 20 0RF Rx Instructions: 60 mg Daily x3 days, 40 mg daily x3 days, 20 mg daily x3 days, 10 mg daily x4 days levofloxacin 750 mg Tablet 750 mg PO Q24H 5 Days Qty: 5 0RF furosemide [Lasix] 20 mg tablet 20 mg PO DAILY 30 Days Qty: 30 0RF Continued metoprolol succinate 100 mg Tablet Extended Release 24 Hr 100 mg PO DAILY@0600 Qty: 30 0RF Rx Instructions: TDD = 125 MG acetaminophen 325 mg Tablet 650 mg PO BEDTIME ascorbic acid (vitamin C) [Vitamin C] 250 mg Tablet 500 mg PO DAILY@0600 aloe vera 5,000 mg Capsule 20,000 mg PO DAILY@0600 coenzyme Q10 200 mg Capsule 200 mg PO DAILY@0600 vitamin E (dl, acetate) 180 mg (400 unit) Capsule 180 mg PO DAILY@0600 omega 1-nof-dwb-fish oil [Fish Oil] 1,200 (144-216) mg Capsule 2 cap PO DAILY@0600 acetaminophen 325 mg tablet 650 mg PO Q6H PRN (Reason: Pain, Mild (Pain Scale 1-3)/FEVER) ipratropium-albuterol 0.5 mg-3 mg(2.5 mg base)/3 mL Solution For Nebulization 3 ml INHALATION Q4H PRN (Reason: Wheezing) Discharge Orders: Discharge Order (Routine); Ordered 05/22/25 Ordered By: Mariia Kilgore Diet: Advance to usual diet Activity on Discharge: As tolerated Stand Alone Forms: Patient Portal Discharge page Print Language: Korean Care Plan Goals: As above Health Concerns: As above Plan of Treatment: As above Assessment: As above
[2025-05-22 11:50] VITALS: BP 138/61; PULSE 63; RESP 18; TEMP 36.5; O2SAT 94
[2025-05-23 16:44] LABS: ABG HCO3 26 mmol/L (22-26); ABG O2 % Saturation 96.0 %
== END 2025-05-22 14:56 ==
LOC: HO.ED 08:19 → HO.EDOVER 10:09 → HO.S3 11:13 → HO.EDOVER 11:39 → HO.IMC 17:09
PROVIDERS: Admitting Provider Nurse Practitioner Acute Care; Emergency Provider Emergency Medicine; PCP Internal Medicine; Referring Provider Radiology Diagnostic Radiology; Visit Provider Hospitalist
DX: R77.8 Other specified abnormalities of plasma proteins (principal); I48.20 Chronic atrial fibrillation, unspecified; E66.01 Morbid (severe) obesity due to excess calories; Z68.43 Body mass index [BMI] 50.0-59.9, adult; J44.1 Chronic obstructive pulmonary disease with (acute) exacerbation; J06.9 Acute upper respiratory infection, unspecified; N18.30 Chronic kidney disease, stage 3 unspecified; N17.9 Acute kidney failure, unspecified; D72.829 Elevated white blood cell count, unspecified; D47.2 Monoclonal gammopathy; J20.9 Acute bronchitis, unspecified; R06.02 Shortness of breath; I45.2 Bifascicular block; R60.0 Localized edema; Z03.818 Encounter for observation for suspected exposure to other biological agents ruled out; R09.02 Hypoxemia; G47.33 Obstructive sleep apnea (adult) (pediatric); Z99.81 Dependence on supplemental oxygen; Z85.72 Personal history of non-Hodgkin lymphomas; Z87.891 Personal history of nicotine dependence; Z86.718 Personal history of other venous thrombosis and embolism; Z79.899 Other long term (current) drug therapy
CPT/HCPCS: 36415; 36600; 71045; 80048; 80076; 82140; 82803; 83605; 83690; 83880; 84484; 85025; 85027; 87040; 87633; 87637; 93005; 93306; 94660; 96365; 96366; 96375; 96376; 99222; 99285; J1271; J1938; J2919; J3475; Q9957

== ENCOUNTER → 2025-05-19 07:47 | Outpatient (BNV) | payer OTHER, SELFPAY | PROVIDERS: Admitting Provider Nurse Practitioner Acute Care; Emergency Provider Emergency Medicine; Visit Provider Internal Medicine Cardiovascular Disease | DX: I48.91 Unspecified atrial fibrillation (principal); I45.2 Bifascicular block | CPT/HCPCS: 93010 ==

== ENCOUNTER → 2025-05-19 07:47 | Outpatient (BNV) | payer OTHER, SELFPAY | PROVIDERS: Emergency Provider Emergency Medicine; Visit Provider Radiology Diagnostic Radiology | DX: R06.02 Shortness of breath (principal) | CPT/HCPCS: 71045 ==

== ENCOUNTER 2025-05-19 09:56 | Outpatient (BNV) | payer OTHER, SELFPAY | END 2025-05-20 07:00 | PROVIDERS: Admitting Provider Nurse Practitioner Acute Care; Emergency Provider Emergency Medicine; Visit Provider Internal Medicine Cardiovascular Disease | DX: I35.0 Nonrheumatic aortic (valve) stenosis (principal); I77.810 Thoracic aortic ectasia; I51.7 Cardiomegaly | CPT/HCPCS: 93306 ==

== ENCOUNTER → 2025-05-19 09:56 | Outpatient (BNV) | payer OTHER, SELFPAY | PROVIDERS: Admitting Provider Nurse Practitioner Acute Care; Emergency Provider Emergency Medicine; Visit Provider Hospitalist | DX: J96.01 Acute respiratory failure with hypoxia (principal); J96.02 Acute respiratory failure with hypercapnia; J44.1 Chronic obstructive pulmonary disease with (acute) exacerbation; I48.20 Chronic atrial fibrillation, unspecified; N18.32 Chronic kidney disease, stage 3b; R77.8 Other specified abnormalities of plasma proteins | CPT/HCPCS: 99222; 99232; 99233; 99239 ==

== ENCOUNTER 2025-05-23 06:12 | Outpatient (REF) | payer OTHER, SELFPAY ==
--- OUTSIDE RECORDS SUMMARY | 2025-05-23 06:16 | XMS_ITS | Encounter Summary ---
Author Organization [employer] [facility] Address [address] [place] [address] Care Team Providers Care Cloth Hauler Name Role Phone Unavailable Primary Care Provider Unavailabl e Encounter Details Date Type Department Care Team (Late st Contact Info) Description 07/03/2023 Abstract [facility] [address] [place] [address] Johnathan Amaya DMD [address] [place] [address] Social History Tobacco Use Types Packs/Day Years [...] Description 06/01/2025 8:15 AM EST Office Visit [facility] [address] [place] [address] Isabell Alvarado [address] [place] [address] documented as of this encounter Visit Diagnoses Not on filedocumented in this encounter
--- OUTSIDE RECORDS SUMMARY | 2025-05-23 06:16 | XMS_ITS | Clinical Summary ---
Author Organization [employer] Address [address] [place] [address] Care Team Providers Care Pharmacy Analyst Name Role Phone Unavailable Primary Care Provider [...] C) 500 MG ER capsule Active B Skwljzr-U-Btlpg Acid (Dane Caps) 1 MG capsule Take [...] Apply topically if needed. Active nystatin (Mycostatin) 120120 UNIT/GM powder Apply topically 2 times daily. [...] Description 05/16/2025 8:00 AM EST Office Visit [facility] [address] [place] [address] Johnathan Amaya DMD 03/30/2025 8:00 AM EST Office Visit [facility] [address] [place] [address] Johnathan Amaya, DMD 03/09/2025 8:45 AM EDT Office Visit [facility] [address] [place] [address] Betzy Desir from Last 3 Months Social [...] Description 06/01/2025 8:15 AM EST Office Visit [address] [address] Isabell Alvarado [address] [place] [address] Health Maintenance Due Date Last Done Comments [...] Documents on File Type Date Recorded Patient Computer Patternmaker Expl anation HealthCare Proxy 11/06/2023 11:01 AM Vandana fiction on Invoke status per [facility] Advance Directives and Living Will 04/11/2023 Life Sustaining Treatment Power of Physiatrist 04/11/2023 POA HealthCare Proxy 04/11/2023 Health Care Proxy Power of Physiatrist 09/11/2022 5:40 PM Power of Physiatrist 09/11/2022
--- OUTSIDE RECORDS SUMMARY | 2025-05-23 06:17 | XMS_ITS | Encounter Summary ---
Author Organization [employer] [facility] Address [address] [place] [phone] Care Team Providers Care Nude Model Name Role Phone Unavailable Primary Care Provider Unavailabl e Encounter Details Date Type Department Care Team (Latest Contact Info) Description 06/09/2018 Abstract [facility] CONVERSIONS Dental, Provider, DDS Social History [...] Description 06/01/2025 8:15 AM EST Office Visit [facility] [address] [place] [address] Isabell Alvarado [address] [place], [place] [phone] documented as of this encounter Visit Diagnoses Not on filedocumented in this encounter
--- OUTSIDE RECORDS SUMMARY | 2025-05-23 06:17 | XMS_ITS | Encounter Summary ---
Author Organization [employer] [facility] Address [address] [place] [phone] Care Team Providers Care Wardrobe Manager Name Role Phone Unavailable Primary Care Provider Unavailabl e Encounter Details Date Type Department Care Team (Latest Contact Info) Description 01/23/[address] [facility] CONVERSIONS Dental, Provider, DDS Social History [...] Description 06/01/2025 8:15 AM EST Office Visit [facility] [address] [place], [place] [phone] Isabell Alvarado [address] [place], [place] [phone] documented as of this encounter Visit Diagnoses Not on filedocumented in this encounter
--- OUTSIDE RECORDS SUMMARY | 2025-05-23 06:17 | XMS_ITS | Encounter Summary ---
Author Organization [employer] [facility] Address [address] [place] [address] Care Team Providers Care Spring Bender Name Role Phone Unavailable Primary Care Provider Unavailabl e Encounter Details Date Type Department Care Team (Late st Contact Info) Description 05/05/2023 Abstract [facility] D[facility] [address] [place] [address] Johnathan Amaya DMD [address] [place] [address] Social History Tobacco Use Types Packs/Day Years [...] 8:15 AM EST Office Visit [facility] [address] [place] [address] Isabell Alvarado [address] [place] [address] documented as of this encounter Visit Diagnoses Not on filedocumented in this encounter
--- OUTSIDE RECORDS SUMMARY | 2025-05-23 06:17 | XMS_ITS | Encounter Summary ---
Author Organization [employer] [facility] Address [address] [place] [address] Care Team Providers Care Eyeglass Frame Truer Name Role Phone Unavailable Primary Care Provider Unavailabl e Encounter Details Date Type Department Care Team (Late st Contact Info) Description 05/09/2023 Abstract [facility] [address] [place] [address] Johnathan Amaya DMD [address] [place] [address] Social History Tobacco Use Types Packs/Day Years [...] Description 06/01/2025 8:15 AM EST Office Visit [facility] [address] [place] [address] Isabell Alvarado [address] [place] [address] documented as of this encounter Visit Diagnoses Not on filedocumented in this encounter
[2025-05-23 06:57] LABS: Anion Gap 12 (12-20); Blood Urea Nitrogen 60 mg/dL (9-16); Calcium 8.9 mg/dL (8.4-10.2); Carbon Dioxide 32 mmol/L (22-29); Chloride 101 mmol/L (96-108); Estimated Glomerular Filt Rate 53; Potassium 5.0 mmol/L (3.3-5.1); Sodium 140 mmol/L (135-145)
== END 2025-05-23 06:13 ==
LOC: HO.HSH4W 06:12
PROVIDERS: Nurse Practitioner; Visit Provider Internal Medicine
DX: N18.30 Chronic kidney disease, stage 3 unspecified (principal); J44.9 Chronic obstructive pulmonary disease, unspecified
CPT/HCPCS: 36415; 80048